=== PATIENT | female | born 1970 | race Caucasian/White ===

== ENCOUNTER → 2018-01-04 16:32 | Outpatient (CLI) | payer BC, SELFPAY ==
[2018-01-04 17:26] LABS: Absolute Lymphocyte Count 3.11 X10^3/ul (0.83-4.51); Absolute Neutrophil Count 6.1 X10^3/uL (2.0-7.7); Basophil# 0.03 X10^3/uL; Basophil% 0.3 % (0-1); Eosinophil# 0.43 X10^3/uL; Hematocrit 38.8 % (37-47); Hemoglobin 13.5 g/dl (12.0-15.0); Lymphocyte # 3.11 X10^3/ul (4.0); Lymphocyte % 29.3 % (19-41); Mean Corp Hgb Conc 34.8 g/gl (32-36); Mean Corpuscular Hgb 30.8 pg (27.0-32.0); Mean Corpuscular Volume 88.4 fL (81-99); Mean Platelet Vol. 10.4 fl (6.2-12.0); Monocyte# 0.93 X10^3/uL; Monocyte% 8.8 % (0-10); Neutrophil # 6.08 X10^3/uL (2.7-7.7); Neutrophil % 57.2 % (47-70); Platelet Count 290 K/mm3 (150-450); RBC Distribution Width SD 41.9 fl (35.1-43.9); Red Blood Count 4.39 M/mm3 (4.2-5.4); White Blood Count 10.6 K/mm3 (4.4-11.0)
[2018-01-04 17:44] LABS: POSITIVE COUNT NO; POSITIVE DIFFERENTIAL NO; POSITIVE MORPHOLOGY NO
[2018-01-04 18:02] LABS: Albumin, Serum 3.8 g/dL (3.2-5.0); BUN 11 mg/dL (7-18); BUN/Creat Ratio 13.2 RATIO (10-20); Creatinine, Serum 0.83 mg/dL (0.55-1.02); EST Glomerular Filtration Rate 79 mL/min (>60); Est Glom Filt Rate - Afr Amer 95 mL/min (>60); Glucose 127 mg/dL (74-106); Protein, Total 7.2 g/dL (6.4-8.2)
[2018-01-04 18:03] LABS: ALB/GLOB Ratio 1.1 RATIO (0.9-2.4); AST(SGOT) 18 U/L (15-37); Alanine Aminotransfer ALT/SGPT 26 U/L (13-56); Alkaline Phosphatase 64 U/L (45-117); Anion Gap 10 (5-15); Calcium,Total 8.3 mg/dL (8.5-10.1); Chloride 105 mmol/L (98-107); Globulin 3.4 g/dL (2.2-4.2); Potassium 3.5 mmol/L (3.5-5.1); Sodium Level 141 mmol/L (136-145); Thyroid Stim Hormone (TSH) 1.22 uIU/mL (0.358-3.74)
[2018-01-05 09:47] LABS: Vitamin D,25 Hydroxy 21.1 ng/mL (29.95-100.01)
== END ==
PROVIDERS: Family Provider Family Medicine Geriatric Medicine; PCP Family Medicine Geriatric Medicine; Visit Provider Family Medicine Geriatric Medicine
DX: E55.9 Vitamin D deficiency, unspecified (principal); I10 Essential (primary) hypertension
CPT/HCPCS: 36415; 80053; 82306; 84443; 85025

== ENCOUNTER → 2018-01-16 15:41 | Outpatient (CLI) | payer BC, SELFPAY ==
--- NOTE | 2018-01-16 15:45 | RAD_ITS ---
STUDY: X-RAY - LEFT HAND, ATTENTION SECOND FINGER REASON FOR EXAM: Female, 47 years old. Pain TECHNIQUE: 3 view(s) of the finger were obtained. COMPARISON: None. FINDINGS: There is marked osteoarthritis at the second and third DIP joints. Normal metacarpal head. Normal metacarpophalangeal joint. Normal proximal phalanx. Normal proximal interphalangeal joint. RAD/Finger(s) Min 2 Views IMPRESSION: Marked osteoarthritis, second, third DIP joints Electronically Signed: Art Palomares MD at 22:22 EDT Tel , Service support ,
== END ==
PROVIDERS: Family Provider Family Medicine Geriatric Medicine; PCP Family Medicine Geriatric Medicine; Visit Provider Orthopaedic Surgery
DX: M79.645 Pain in left finger(s) (principal)
CPT/HCPCS: 73140

== ENCOUNTER 2018-02-05 17:30 | Outpatient (RCR) | payer BC, SELFPAY ==
--- NOTE | 2018-01-24 15:30 | HP.OTEVAL ---
Patient's Visit Information ANEUDY CASTRO is a 47 year old F, referred to Occupational Therapy by Dana Vega DO,, with a diagnosis of OA L index finger/ CTS. Date of Evaluation: 01/23/18 Occupational Therapist: [place] - Subjective Subjective: Pt seen for initial occupational therapy evaluation for OA in L index finger DIP joint with increased pain with movement. Pt hurt hand in August and has had pain since with limiting functional use of L index finger. 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 She is independent with all basic ADL tasks and has limited independence opening containers secondary to pain and weakness of L hand. Pt is R hand dominent. - Pain Left Hand 3 Pain Intensity Range: 3, 4, 5 - Objective Objective/Observation: Pt demo decreased ROM L index finger extension DIP joint and increased stiffness and pain of L index finger indicating a need for occupational therapy services to increase ROM extension of L index finger DIP joint and decrease pain and stiffness of L index finger and increase strength of L hand to increase independence with functional tasks. - ROM DIP: R 0/104, L -40/115 ROM Comments: limited extension L index finger DIP. 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 Goal:: Pt will progress with L index finger extension DIP by 35' to increase functional use of L hand. Goal:: Pt will demo no more than 1/10 pain L index finger at time of d/c from OT. Goal:: Pt will be educated on joint protection/energy conservation tech of L hand and carpal tunnel syndrome with good understanding and demo 100%x. Goal:: Pt will be educated on CTS exercises and L hand HEP and manual therapy techniques to decrease scar tissue with good understanding and demo 100%x. - Rehabilitation General Assessment: decrease pain L index finger and increase ROM DIP joint to increase functional use of L hand as well as increase L hand pinch and medical center director strength for functional tasks such as opening containers independently and educate on HEP and ROM techniques to complete at home with good understanding and demo. Rehabilitation Potential: Excellent - Anticipated Interventions Anticipated Interventions: A/AAROM/PROM, Strengthening, Massage, Triggerpoint Release, Modalities, Joint Protection/Energy Conservation, Ergonomic Education, Fine Motor Coord/Merrill, ADL Training, Education re Self Massage Techniques, Home Program - Visit Plan Frequency: 1x/Week Duration: 6 Weeks General Plan: decrease L index finger pain and increase ROM L index finger DIP joint. Increase L hand medical center director strength and pinch strength. Educate on HEP for L hand and CTS. TEXT: Thank you for the opportunity to evaluate your patient. For Medicare and Medicare HMO plans, please review the plan of care and approve it. It will need to be FAXED BACK to us at [phone] for Medicare purposes. Please let me know if there are questions or concerns regarding this plan of care. Physician Signature: Date:
--- NOTE | 2018-07-17 09:43 | HP.OT.NRP ---
HP - Discharge Summary - Patient Information ANEUDY CASTRO was seen in my office for initial evaluation on 01/23/18. The following Plan of Care was established for this patient: Initial Frequency: 1x/Week Initial Duration: 6 Weeks Plan: pt doing better and states 100% better- pt to call and see if she will return for her next three apts - Anticipated Interventions Anticipated Interventions: A/AAROM/PROM, Strengthening, Massage, Triggerpoint Release, Modalities, Joint Protection/Energy Conservation, Ergonomic Education, Fine Motor Coord/Merrill, ADL Training, Education re Self Massage Techniques, Home Program This patient was last seen in our office 02/05/18. Pertinent comments regarding their Occupational therapy will appear below: Pt was seen for 3 visits- the last two visits were cancelled.- at 3rd. visit pt was demo full functional ROM and reported no pain. pt is now D/C due to timelapse in tx sessions and non attendance. At this point I will be discontinuing this patient from occupational therapy. I would be happy to see this patient again in the future if found appropriate by the physician. Thank you! Kelly Rivera, OTR/L, CHT
== END 2018-02-05 19:00 | disposition home or self-care (01) ==
LOC: OT 17:30
PROVIDERS: Family Provider Family Medicine Geriatric Medicine; PCP Family Medicine Geriatric Medicine; Visit Provider Orthopaedic Surgery
DX: M19.042 Primary osteoarthritis, left hand (principal); M25.642 Stiffness of left hand, not elsewhere classified; G56.02 Carpal tunnel syndrome, left upper limb
CPT/HCPCS: 97140; 97165

== ENCOUNTER → 2018-05-22 15:23 | Outpatient (CLI) | payer BC, SELFPAY ==
[2018-05-22 16:38] LABS: T4 Free Direct 0.92 ng/dL (0.76-1.46); Thyroid Stim Hormone (TSH) 0.69 uIU/mL (0.358-3.74)
[2018-05-26 10:28] LABS: HPV Reflexed? NOT INDICATED
== END ==
PROVIDERS: Visit Provider Obstetrics & Gynecology
DX: R53.83 Other fatigue (principal); Z12.4 Encounter for screening for malignant neoplasm of cervix
CPT/HCPCS: 36415; 84439; 84443; 88175; G0145

== ENCOUNTER → 2019-01-24 16:18 | Outpatient (CLI) | payer BC, SELFPAY ==
[2019-01-24 17:06] LABS: Absolute Lymphocyte Count 3.07 X10^3/ul (0.83-4.51); Absolute Neutrophil Count 5.9 X10^3/uL (2.0-7.7); Basophil# 0.03 X10^3/uL; Basophil% 0.3 % (0-1); Eosinophil# 0.45 X10^3/uL; Eosinophils% 4.3 % (0-5); Hematocrit 39.9 % (37-47); Hemoglobin 13.4 g/dl (12.0-15.0); Lymphocyte # 3.07 X10^3/ul (4.0); Lymphocyte % 29.2 % (19-41); Mean Corp Hgb Conc 33.6 g/gl (32-36); Mean Corpuscular Hgb 30.1 pg (27.0-32.0); Mean Corpuscular Volume 89.7 fL (81-99); Mean Platelet Vol. 9.8 fl (6.2-12.0); Monocyte# 0.95 X10^3/uL; Neutrophil # 5.94 X10^3/uL (2.7-7.7); Neutrophil % 56.5 % (47-70); Platelet Count 292 K/mm3 (150-450); RBC Distribution Width CV 13.1 % (11.6-14.6); RBC Distribution Width SD 42.3 fl (35.1-43.9); Red Blood Count 4.45 M/mm3 (4.2-5.4); White Blood Count 10.5 K/mm3 (4.4-11.0)
[2019-01-24 17:22] LABS: POSITIVE COUNT NO; POSITIVE DIFFERENTIAL NO; POSITIVE MORPHOLOGY NO
[2019-01-24 17:32] LABS: Albumin, Serum 3.5 g/dL (3.2-5.0); BUN 11 mg/dL (7-18); Creatinine, Serum 0.92 mg/dL (0.55-1.02); EST Glomerular Filtration Rate 70 mL/min (>60); Est Glom Filt Rate - Afr Amer 84 mL/min (>60); Glucose 110 mg/dL (74-106)
[2019-01-24 17:33] LABS: AST(SGOT) 25 U/L (15-37); Alanine Aminotransfer ALT/SGPT 30 U/L (13-56); Alkaline Phosphatase 61 U/L (45-117); Anion Gap 9 (5-15); Calcium,Total 8.6 mg/dL (8.5-10.1); Chloride 104 mmol/L (98-107); Globulin 3.5 g/dL (2.2-4.2); Potassium 3.5 mmol/L (3.5-5.1); Sodium Level 139 mmol/L (136-145); Thyroid Stim Hormone (TSH) 1.02 uIU/mL (0.358-3.74)
== END ==
PROVIDERS: Family Provider Family Medicine Geriatric Medicine; PCP Family Medicine Geriatric Medicine; Visit Provider Family Medicine Geriatric Medicine
DX: I10 Essential (primary) hypertension (principal); E55.9 Vitamin D deficiency, unspecified
CPT/HCPCS: 36415; 80053; 82306; 84443; 85025

== ENCOUNTER → 2019-04-23 | Outpatient (CLI) | payer BC, SELFPAY ==
[2019-04-23 17:23] LABS: Absolute Lymphocyte Count 3.61 X10^3/ul (0.83-4.51); Absolute Neutrophil Count 6.9 X10^3/uL (2.0-7.7); Basophil# 0.04 X10^3/uL; Basophil% 0.3 % (0-1); Eosinophil# 0.39 X10^3/uL; Eosinophils% 3.3 % (0-5); Hematocrit 40.3 % (37-47); Hemoglobin 13.9 g/dl (12.0-15.0); Lymphocyte # 3.61 X10^3/ul (4.0); Lymphocyte % 30.4 % (19-41); Mean Corp Hgb Conc 34.5 g/gl (32-36); Mean Corpuscular Hgb 29.9 pg (27.0-32.0); Mean Corpuscular Volume 86.7 fL (81-99); Mean Platelet Vol. 9.5 fl (6.2-12.0); Monocyte% 7.6 % (0-10); Neutrophil # 6.89 X10^3/uL (2.7-7.7); Neutrophil % 57.9 % (47-70); Platelet Count 288 K/mm3 (150-450); RBC Distribution Width CV 13.4 % (11.6-14.6); RBC Distribution Width SD 41.9 fl (35.1-43.9); Red Blood Count 4.65 M/mm3 (4.2-5.4); White Blood Count 11.9 K/mm3 (4.4-11.0)
[2019-04-23 17:30] LABS: POSITIVE COUNT NO; POSITIVE DIFFERENTIAL NO; POSITIVE MORPHOLOGY NO
[2019-04-23 17:54] LABS: AST(SGOT) 17 U/L (15-37); Alanine Aminotransfer ALT/SGPT 27 U/L (13-56); Albumin, Serum 3.7 g/dL (3.2-5.0); Alkaline Phosphatase 65 U/L (45-117); Anion Gap 8 (5-15); BUN 11 mg/dL (7-18); Calcium,Total 8.9 mg/dL (8.5-10.1); Chloride 103 mmol/L (98-107); Creatinine, Serum 0.79 mg/dL (0.55-1.02); EST Glomerular Filtration Rate 83 mL/min (>60); Est Glom Filt Rate - Afr Amer 100 mL/min (>60); Globulin 3.7 g/dL (2.2-4.2); Glucose 80 mg/dL (74-106); Potassium 3.5 mmol/L (3.5-5.1); Protein, Total 7.4 g/dL (6.4-8.2); Sodium Level 137 mmol/L (136-145); Thyroid Stim Hormone (TSH) 1.02 uIU/mL (0.358-3.74)
== END | disposition home or self-care (01) ==
LOC: POLAB3 16:52
PROVIDERS: Family Provider Family Medicine Geriatric Medicine; PCP Family Medicine Geriatric Medicine; Visit Provider Family Medicine Geriatric Medicine
DX: I10 Essential (primary) hypertension (principal)
CPT/HCPCS: 36415; 80053; 84443; 85025

== ENCOUNTER → 2019-09-09 16:26 | Outpatient (CLI) | payer BC, SELFPAY ==
[2019-09-13 09:08] LABS: Age Gdln ACOG Testing 30-65 (.)
[2019-09-13 09:49] LABS: HPV APTIMA, High Risk Negative (Negative); HPV Reflexed? NOT INDICATED
== END ==
PROVIDERS: Family Provider Family Medicine Geriatric Medicine; PCP Family Medicine Geriatric Medicine; Visit Provider Obstetrics & Gynecology
DX: Z12.4 Encounter for screening for malignant neoplasm of cervix (principal)
CPT/HCPCS: 88175; G0145

== ENCOUNTER → 2019-09-19 15:53 | Outpatient (CLI) | payer BC, SELFPAY ==
[2019-09-19 17:52] LABS: Follicle Stimulating Hormone 4.2 mIU/mL; Thyroid Stim Hormone (TSH) 0.81 uIU/mL (0.358-3.74)
== END ==
PROVIDERS: Family Provider Family Medicine Geriatric Medicine; PCP Family Medicine Geriatric Medicine; Visit Provider Obstetrics & Gynecology
DX: N91.2 Amenorrhea, unspecified (principal); R23.8 Other skin changes
CPT/HCPCS: 36415; 83001; 84443; 85027

== ENCOUNTER → 2020-01-27 16:02 | Outpatient (CLI) | payer BC, SELFPAY ==
[2020-01-27 17:07] LABS: Absolute Lymphocyte Count 2.85 X10^3/uL (0.83-4.51); Absolute Neutrophil Count 5.1 X10^3/uL (2.0-7.7); Basophil# 0.05 X10^3/uL; Basophil% 0.6 % (0-1); Eosinophil# 0.44 X10^3/uL; Eosinophils% 4.8 % (0-5); Hematocrit 39.7 % (37-47); Hemoglobin 13.9 g/dL (12.0-15.0); Lymphocyte # 2.85 X10^3/ul (4.0); Lymphocyte % 31.4 % (19-41); Mean Corpuscular Hgb 30.4 pg (27.0-32.0); Mean Corpuscular Volume 86.9 fL (81-99); Mean Platelet Vol. 9.9 fl (6.2-12.0); Monocyte# 0.62 X10^3/uL; Monocyte% 6.8 % (0-10); NRBC Flagged by Analyzer 0 % (0-5); Neutrophil # 5.08 X10^3/uL (2.7-7.7); Neutrophil % 55.8 % (47-70); Platelet Count 261 K/mm3 (150-450); RBC Distribution Width CV 13.2 % (11.6-14.6); RBC Distribution Width SD 40.6 fl (35.1-43.9); Red Blood Count 4.57 M/mm3 (4.2-5.4); White Blood Count 9.1 K/mm3 (4.4-11.0)
[2020-01-27 17:25] LABS: Vitamin D,25 Hydroxy 18.1 ng/mL
[2020-01-27 17:30] LABS: AST(SGOT) 44 U/L (15-37); Alanine Aminotransfer ALT/SGPT 57 U/L (13-56); Albumin, Serum 3.6 g/dL (3.2-5.0); Alkaline Phosphatase 66 U/L (45-117); Anion Gap 8 (5-15); BUN 11 mg/dL (7-18); BUN/Creat Ratio 11.9 RATIO (10-20); Chloride 106 mmol/L (98-107); Creatinine, Serum 0.92 mg/dL (0.55-1.02); EST Glomerular Filtration Rate 69 mL/min (>60); Est Glom Filt Rate - Afr Amer 84 mL/min (>60); Globulin 3.6 g/dL (2.2-4.2); Glucose 195 mg/dL (74-106); Potassium 3.2 mmol/L (3.5-5.1); Protein, Total 7.2 g/dL (6.4-8.2); Sodium Level 141 mmol/L (136-145)
== END ==
PROVIDERS: PCP Family Medicine Geriatric Medicine; Visit Provider Family Medicine Geriatric Medicine
DX: I10 Essential (primary) hypertension (principal); E55.9 Vitamin D deficiency, unspecified
CPT/HCPCS: 36415; 80053; 82306; 84443; 85025

== ENCOUNTER → 2020-02-04 08:27 | Outpatient (CLI) | payer BC, SELFPAY ==
--- NOTE | 2020-02-04 08:29 | US_ITS ---
STUDY: ABDOMINAL ULTRASOUND - RIGHT UPPER QUADRANT REASON FOR VISIT: Female, 49 years old abd pain TECHNIQUE: Ultrasound evaluation of the right upper quadrant was performed with real-time and static kern-scale imaging. TECHNICAL QUALITY: Adequate. COMPARISON: None. FINDINGS: Liver: The liver measures 17.3 cm. There is increased echogenicity consistent with fatty infiltration. The bile ducts are within normal limits. There is hepatic color flow. The direction of portal flow is hepatopetal. There is no demonstrated mass lesion. Gallbladder: The patient is status post cholecystectomy. Common Bile Duct (C.B.D.): The common bile duct measures 4.3 mm. Pancreas: Normal size of the head, body of the pancreas. The tail portion is obscured due to overlying bowel gas. There is normal echogenicity of the pancreas. There is no demonstrated pancreatic mass or cyst. Right Kidney: Normal size of the right kidney. The right kidney measures 10.7 cm x 5.4 cm x 4.7 cm. Normal renal cortex. The right cortex measures 1.5 cm. There is no demonstrated renal mass or cyst. There is no right hydronephrosis. US/Abdomen Limited IMPRESSION: Fatty infiltration of the liver. Electronically Signed: Chacho Last, at 9:28 EDT , Service support ,
[2020-02-04 09:57] LABS: Anion Gap 7 (5-15); BUN 10 mg/dL (7-18); BUN/Creat Ratio 11.4 RATIO (10-20); Calcium,Total 8.9 mg/dL (8.5-10.1); Chloride 104 mmol/L (98-107); Creatinine, Serum 0.88 mg/dL (0.55-1.02); EST Glomerular Filtration Rate 73 mL/min (>60); Est Glom Filt Rate - Afr Amer 88 mL/min (>60); Glucose 120 mg/dL (74-106); Potassium 3.3 mmol/L (3.5-5.1); Sodium Level 139 mmol/L (136-145)
== END ==
PROVIDERS: PCP Family Medicine Geriatric Medicine; Referring Provider Family Medicine Geriatric Medicine; Visit Provider Family Medicine Geriatric Medicine
DX: R74.8 Abnormal levels of other serum enzymes (principal); E87.6 Hypokalemia
CPT/HCPCS: 36415; 76705; 80048

== ENCOUNTER 2020-02-17 18:30 | Outpatient (RCR) | payer BC, SELFPAY | END 2020-02-17 23:59 | disposition home or self-care (01) | LOC: DC 18:30 | PROVIDERS: PCP Family Medicine Geriatric Medicine; Visit Provider Family Medicine Geriatric Medicine | DX: Z71.3 Dietary counseling and surveillance (principal); E11.9 Type 2 diabetes mellitus without complications | CPT/HCPCS: 97802; G0108; S9470; G0463 ==

== ENCOUNTER → 2020-05-27 18:04 | Outpatient (CLI) | payer BC, SELFPAY | PROVIDERS: PCP Family Medicine Geriatric Medicine; Referring Provider Family Medicine Geriatric Medicine; Visit Provider Family Medicine Geriatric Medicine | DX: R06.89 Other abnormalities of breathing (principal) | CPT/HCPCS: 87635; 94799; U0003 ==

== ENCOUNTER → 2020-09-11 | Outpatient (CLI) | payer BC, SELFPAY ==
[2020-09-15 03:07] LABS: Chlamydia By Nucleic Acid AMP Negative (Negative)
[2020-09-15 10:41] LABS: Gonococcus By Nucleic Acid AMP Negative (Negative)
[2020-09-16 15:15] LABS: HPV Reflexed? NOT INDICATED
== END | disposition home or self-care (01) ==
LOC: LABSPEC 15:18
PROVIDERS: PCP Family Medicine Geriatric Medicine; Visit Provider Student in an Organized Health Care Education/Training Program
DX: Z11.3 Encounter for screening for infections with a predominantly sexual mode of transmission (principal); Z12.4 Encounter for screening for malignant neoplasm of cervix
CPT/HCPCS: 87491; 87591; 88175; G0145

== ENCOUNTER → 2021-01-27 16:16 | Outpatient (CLI) | payer BC, SELFPAY ==
[2021-01-27 16:42] LABS: Absolute Lymphocyte Count 3.64 X10^3/uL (0.83-4.51); Absolute Neutrophil Count 6.2 X10^3/uL (2.0-7.7); Basophil# 0.07 X10^3/uL; Basophil% 0.6 % (0-1); Eosinophil# 0.41 X10^3/uL; Eosinophils% 3.6 % (0-5); Hematocrit 41.9 % (37-47); Hemoglobin 14.3 g/dL (12.0-15.0); Lymphocyte # 3.64 X10^3/ul (4.0); Lymphocyte % 31.6 % (19-41); Mean Corp Hgb Conc 34.1 g/dL (32-36); Mean Corpuscular Hgb 29.8 pg (27.0-32.0); Mean Corpuscular Volume 87.3 fL (81-99); Mean Platelet Vol. 9.6 fl (6.2-12.0); Monocyte# 1.11 X10^3/uL; Monocyte% 9.6 % (0-10); NRBC Flagged by Analyzer 0 % (0-5); Neutrophil % 53.8 % (47-70); Platelet Count 339 K/mm3 (150-450); RBC Distribution Width CV 12.8 % (11.6-14.6); RBC Distribution Width SD 40.4 fl (35.1-43.9); White Blood Count 11.5 K/mm3 (4.4-11.0)
[2021-01-27 17:12] LABS: Vitamin D,25 Hydroxy 15.9 ng/mL
[2021-01-27 17:27] LABS: AST(SGOT) 22 U/L (15-37); Alanine Aminotransfer ALT/SGPT 43 U/L (13-56); Albumin, Serum 3.8 g/dL (3.2-5.0); Alkaline Phosphatase 65 U/L (45-117); Anion Gap 5 (5-15); BUN 9 mg/dL (7-18); BUN/Creat Ratio 10.9 RATIO (10-20); Chloride 104 mmol/L (98-107); Creatinine, Serum 0.83 mg/dL (0.55-1.02); EST Glomerular Filtration Rate 78 mL/min (>60); Est Glom Filt Rate - Afr Amer 94 mL/min (>60); Globulin 3.8 g/dL (2.2-4.2); Glucose 108 mg/dL (74-106); Potassium 3.5 mmol/L (3.5-5.1); Protein, Total 7.6 g/dL (6.4-8.2); Sodium Level 138 mmol/L (136-145); Thyroid Stim Hormone (TSH) 0.82 uIU/mL (0.358-3.74)
== END ==
PROVIDERS: PCP Family Medicine Geriatric Medicine; Visit Provider Family Medicine Geriatric Medicine
DX: E55.9 Vitamin D deficiency, unspecified (principal); I10 Essential (primary) hypertension
CPT/HCPCS: 36415; 80053; 82306; 84443; 85025

== ENCOUNTER 2021-12-28 12:56 | Outpatient (CLI) | payer BC, SELFPAY | END 2021-12-28 23:59 | disposition home or self-care (01) | LOC: PSN 12:59 | PROVIDERS: PCP Family Medicine Geriatric Medicine; Referring Provider Family Medicine Geriatric Medicine; Visit Provider Family Medicine Geriatric Medicine | DX: R68.83 Chills (without fever) (principal) | CPT/HCPCS: 87635; 87804; 87807; C9803; U0003; U0005 ==

== ENCOUNTER 2022-01-31 16:29 | Outpatient (CLI) | payer BC, SELFPAY ==
[2022-01-31 17:49] LABS: Absolute Lymphocyte Count 3.57 X10^3/uL (0.83-4.51); Absolute Neutrophil Count 7.2 X10^3/uL (2.0-7.7); Basophil# 0.07 X10^3/uL; Basophil% 0.6 % (0-1); Eosinophil# 0.32 X10^3/uL; Eosinophils% 2.6 % (0-5); Hematocrit 43.3 % (37-47); Hemoglobin 14.9 g/dL (12.0-15.0); Lymphocyte # 3.57 X10^3/ul (0.83-4.51); Lymphocyte % 29.1 % (19-41); Mean Corp Hgb Conc 34.4 g/dL (32-36); Mean Corpuscular Hgb 30.3 pg (27.0-32.0); Mean Corpuscular Volume 88.2 fL (81-99); Mean Platelet Vol. 9.6 fl (6.2-12.0); Monocyte# 1.01 X10^3/uL; Monocyte% 8.2 % (0-10); NRBC Flagged by Analyzer 0 % (0-5); Neutrophil # 7.19 X10^3/uL (2.7-7.7); Neutrophil % 58.8 % (47-70); Platelet Count 365 K/mm3 (150-450); RBC Distribution Width CV 13.3 % (11.6-14.6); RBC Distribution Width SD 43.4 fl (35.1-43.9); Red Blood Count 4.91 M/mm3 (4.2-5.4); White Blood Count 12.3 K/mm3 (4.4-11.0)
[2022-01-31 18:12] LABS: AST(SGOT) 24 U/L (15-37); Alanine Aminotransfer ALT/SGPT 41 U/L (13-56); Albumin, Serum 3.8 g/dL (3.2-5.0); Alkaline Phosphatase 66 U/L (45-117); Anion Gap 6 (5-15); BUN 10 mg/dL (7-18); BUN/Creat Ratio 11.2 RATIO (10-20); Calcium,Total 8.8 mg/dL (8.5-10.1); Chloride 101 mmol/L (98-107); Creatinine, Serum 0.89 mg/dL (0.55-1.02); EST Glomerular Filtration Rate 71 mL/min (>60); Est Glom Filt Rate - Afr Amer 86 mL/min (>60); Globulin 3.7 g/dL (2.2-4.2); Glucose 106 mg/dL (74-106); Potassium 3.6 mmol/L (3.5-5.1); Protein, Total 7.5 g/dL (6.4-8.2); Sodium Level 136 mmol/L (136-145); Thyroid Stim Hormone (TSH) 0.86 uIU/mL (0.358-3.74)
== END 2022-01-31 23:59 | disposition home or self-care (01) ==
LOC: POLAB3 16:30
PROVIDERS: PCP Family Medicine Geriatric Medicine; Visit Provider Family Medicine Geriatric Medicine
DX: E11.65 Type 2 diabetes mellitus with hyperglycemia (principal); E55.9 Vitamin D deficiency, unspecified; I10 Essential (primary) hypertension
CPT/HCPCS: 36415; 80053; 82306; 84443; 85025

== ENCOUNTER → 2022-08-01 | Outpatient (CLI) | payer BC, SELFPAY | END | disposition home or self-care (01) | LOC: LAB.FUTURE 16:35 | PROVIDERS: PCP Family Medicine Geriatric Medicine; Visit Provider Family Medicine Geriatric Medicine | DX: I10 Essential (primary) hypertension (principal); E11.65 Type 2 diabetes mellitus with hyperglycemia; E55.9 Vitamin D deficiency, unspecified ==

== ENCOUNTER → 2023-01-18 | Outpatient (CLI) | payer BC, SELFPAY ==
[2023-01-25 16:08] LABS: HPV APTIMA, High Risk Negative (Negative)
== END | disposition home or self-care (01) ==
LOC: LABSPEC 16:58
PROVIDERS: PCP Family Medicine Geriatric Medicine; Referring Provider Obstetrics & Gynecology; Visit Provider Obstetrics & Gynecology
DX: Z12.4 Encounter for screening for malignant neoplasm of cervix (principal)
CPT/HCPCS: 87624; 88175; G0145

== ENCOUNTER → 2023-02-02 | Outpatient (CLI) | payer BC, SELFPAY ==
[2023-02-02 08:18] LABS: Cholesterol 182 mg/dL (200); Follicle Stimulating Hormone 15.5 mIU/mL; High Density Lipoprotein 31 mg/dL; Luteinizing Hormone 7.5 mIU/mL; T4 Free Direct 1.11 ng/dL (0.76-1.46); Thyroid Stim Hormone (TSH) 0.86 uIU/mL (0.358-3.74); Triglycerides 166 mg/dL; Very Low Density Lipoprotein 33 mg/dL (5-40)
[2023-02-02 08:54] LABS: Vitamin D,25 Hydroxy 34.8 ng/mL
== END | disposition home or self-care (01) ==
PROVIDERS: PCP Family Medicine Geriatric Medicine; Referring Provider Obstetrics & Gynecology; Visit Provider Obstetrics & Gynecology
DX: N95.1 Menopausal and female climacteric states (principal); Z13.220 Encounter for screening for lipoid disorders; Z13.29 Encounter for screening for other suspected endocrine disorder; Z13.21 Encounter for screening for nutritional disorder
CPT/HCPCS: 36415; 80061; 82306; 83001; 83002; 84439; 84443

== ENCOUNTER → 2023-02-15 | Outpatient (CLI) | payer BC, SELFPAY ==
[2023-02-15 17:38] LABS: Absolute Lymphocyte Count 3.57 X10^3/uL (0.83-4.51); Absolute Neutrophil Count 5.2 X10^3/uL (2.0-7.7); Basophil# 0.07 X10^3/uL; Basophil% 0.7 % (0-1); Hematocrit 43.6 % (37-47); Hemoglobin 14.7 g/dL (12.0-15.0); Lymphocyte # 3.57 X10^3/ul (0.83-4.51); Lymphocyte % 35.9 % (19-41); Mean Corp Hgb Conc 33.7 g/dL (32-36); Mean Corpuscular Hgb 29.5 pg (27.0-32.0); Mean Corpuscular Volume 87.4 fL (81-99); Mean Platelet Vol. 10.1 fl (6.2-12.0); Monocyte# 0.69 X10^3/uL; Monocyte% 6.9 % (0-10); NRBC Flagged by Analyzer 0 % (0-5); Neutrophil # 5.16 X10^3/uL (2.7-7.7); Platelet Count 329 K/mm3 (150-450); RBC Distribution Width SD 41.1 fl (35.1-43.9); Red Blood Count 4.99 M/mm3 (4.2-5.4); White Blood Count 9.9 K/mm3 (4.4-11.0)
[2023-02-15 17:57] LABS: Hemoglobin A1c 7.5 % (3.8-5.6)
[2023-02-15 18:09] LABS: ALB/GLOB Ratio 1.1 RATIO (0.9-2.4); AST(SGOT) 24 U/L (15-37); Alanine Aminotransfer ALT/SGPT 31 U/L (13-56); Albumin, Serum 3.8 g/dL (3.2-5.0); Alkaline Phosphatase 70 U/L (45-117); Anion Gap 6 (5-15); BUN 11 mg/dL (7-18); BUN/Creat Ratio 12.3 RATIO (10-20); Calcium,Total 9.3 mg/dL (8.5-10.1); Chloride 104 mmol/L (98-107); EST Glomerular Filtration Rate 71 mL/min (>60); Est Glom Filt Rate - Afr Amer 85 mL/min (>60); Globulin 3.5 g/dL (2.2-4.2); Glucose 135 mg/dL (74-106); Potassium 3.3 mmol/L (3.5-5.1); Protein, Total 7.3 g/dL (6.4-8.2); Sodium Level 136 mmol/L (136-145); Thyroid Stim Hormone (TSH) 0.91 uIU/mL (0.358-3.74)
[2023-02-15 18:33] LABS: Microalbumin,Random Urine 6.8 mg/L (NO RANGE EST.)
== END | disposition home or self-care (01) ==
PROVIDERS: PCP Family Medicine Geriatric Medicine; Referring Provider Family Medicine; Visit Provider Family Medicine
DX: I10 Essential (primary) hypertension (principal)
CPT/HCPCS: 36415; 80053; 82043; 83036; 84443; 85025

== ENCOUNTER → 2023-03-02 | Outpatient (CLI) | payer BC, SELFPAY ==
[2023-03-02 18:14] LABS: Potassium 3.7 mmol/L (3.5-5.1)
== END | disposition home or self-care (01) ==
LOC: MFPLAB 14:01
PROVIDERS: PCP Family Medicine; Visit Provider Family Medicine
DX: E87.6 Hypokalemia (principal)
CPT/HCPCS: 36415; 84132

== ENCOUNTER → 2023-04-04 | Outpatient (CLI) | payer BC, SELFPAY ==
[2023-04-04 13:04] LABS: Potassium 3.6 mmol/L (3.5-5.1)
== END | disposition home or self-care (01) ==
LOC: MFPLAB 11:24
PROVIDERS: PCP Family Medicine; Visit Provider Family Medicine
DX: E87.6 Hypokalemia (principal)
CPT/HCPCS: 36415; 84132

== ENCOUNTER → 2024-08-07 | Outpatient (CLI) | payer BC, SELFPAY ==
[2024-08-07 12:57] LABS: Absolute Lymphocyte Count 2.54 X10^3/uL (0.83-4.51); Absolute Neutrophil Count 4.6 X10^3/uL (2.0-7.7); Basophil# 0.04 X10^3/uL; Basophil% 0.5 % (0-1); Eosinophil# 0.51 X10^3/uL; Hematocrit 42.2 % (37-47); Hemoglobin 14.2 g/dL (12.0-15.0); Lymphocyte # 2.54 X10^3/ul (0.83-4.51); Lymphocyte % 29.9 % (19-41); Mean Corp Hgb Conc 33.6 g/dL (32-36); Mean Corpuscular Hgb 29.5 pg (27.0-32.0); Mean Corpuscular Volume 87.7 fL (81-99); Mean Platelet Vol. 9.7 fl (6.2-12.0); Monocyte# 0.74 X10^3/uL; Monocyte% 8.7 % (0-10); NRBC Flagged by Analyzer 0 % (0-5); Neutrophil # 4.62 X10^3/uL (2.7-7.7); Neutrophil % 54.4 % (47-70); Platelet Count 286 K/mm3 (150-450); RBC Distribution Width CV 12.7 % (11.6-14.6); RBC Distribution Width SD 40.9 fl (35.1-43.9); Red Blood Count 4.81 M/mm3 (4.2-5.4); White Blood Count 8.5 K/mm3 (4.4-11.0)
[2024-08-07 13:14] LABS: Microalbumin,Random Urine 6.7 mg/L (NO RANGE EST.)
[2024-08-07 13:36] LABS: ALB/GLOB Ratio 1.1 RATIO (0.9-2.4); AST(SGOT) 21 U/L (15-37); Alanine Aminotransfer ALT/SGPT 26 U/L (13-56); Albumin, Serum 3.9 g/dL (3.2-5.0); Alkaline Phosphatase 62 U/L (45-117); Anion Gap 8 (5-15); BUN 14 mg/dL (7-18); BUN/Creat Ratio 15.3 RATIO (10-20); Calcium,Total 9.4 mg/dL (8.5-10.1); Chloride 105 mmol/L (98-107); Cholesterol 191 mg/dL (200); Creatinine, Serum 0.91 mg/dL (0.55-1.02); EST Glomerular Filtration Rate 69 mL/min (>60); Est Glom Filt Rate - Afr Amer 83 mL/min (>60); Globulin 3.5 g/dL (2.2-4.2); Glucose 97 mg/dL (74-106); High Density Lipoprotein 49 mg/dL; Potassium 3.9 mmol/L (3.5-5.1); Protein, Total 7.4 g/dL (6.4-8.2); Sodium Level 140 mmol/L (136-145); Thyroid Stim Hormone (TSH) 0.751 uIU/mL (0.358-3.740); Triglycerides 213 mg/dL; Very Low Density Lipoprotein 43 mg/dL (5-40)
== END | disposition home or self-care (01) ==
LOC: VSLAB 11:02
PROVIDERS: PCP Family Medicine; Visit Provider Family Medicine
DX: E11.69 Type 2 diabetes mellitus with other specified complication (principal); I10 Essential (primary) hypertension
CPT/HCPCS: 36415; 80053; 80061; 82043; 84443; 85025

== ENCOUNTER → 2025-01-13 | Outpatient (CLI) | payer BC, SELFPAY ==
--- NOTE | 2025-01-13 15:45 | BI_ITS ---
EXAM: SCRN MAMM (CAD)W/ZOLTAN BILAT DATE: 01/13/2025 CLINICAL HISTORY: F, Age 54 y/o , SCREENING MAMMOGRAM. History of prior left excisional breast biopsy. TECHNIQUE: Bilateral screening digital breast tomosynthesis with 2D and 3D images. Computer aided detection. COMPARISON: Prior exam(s) dating back to April 17, 2017.. FINDINGS: Bilateral Breast Mammographic Findings: No significant masses, calcifications or other abnormalities are identified. TISSUE DENSITY: The breast tissue is almost entirely fatty. BI/SCRN MAMM (CAD)W/ZOLTAN BILAT IMPRESSION: Right Breast: BI-RADS category 1, negative findings. Left Breast: BI-RADS category 1, negative findings. Normal interval followup mammograms are recommended in 12 months. A letter with findings and recommendations will be mailed to the patient. ASSESSMENT: BIRADS 1 NEGATIVE RECOMMENDATION: 1: ROUTINE ANNUAL FOLLOW-UP Bilateral in 1 Year Reading Location: [place] [id number]
== END | disposition home or self-care (01) ==
PROVIDERS: PCP Family Medicine; Referring Provider Nurse Practitioner Family; Visit Provider Nurse Practitioner Family
DX: Z12.31 Encounter for screening mammogram for malignant neoplasm of breast (principal)
CPT/HCPCS: 77063; 77067

== ENCOUNTER 2025-05-07 07:14 | Observation (INO) | payer BC, SELFPAY ==
--- NOTE | 2025-04-01 13:06 | EKG12_ITS ---
Test Reason : PRE OP Blood Pressure : */* mmHG Vent. Rate : 90 BPM Atrial Rate : 90 BPM P-R Int : 152 ms QRS Dur : 84 ms QT Int : 360 ms P-R-T Axes : 51 44 47 degrees QTcB Int : 440 ms Normal sinus rhythm Normal ECG Confirmed by Florentin Rayo ([id number]), editor index UVALDO LUGO ([id number]) on 04/02/2025 5:49:56 AM Referred By: Yannick Bourne Confirmed By: Florentin Rayo
[2025-04-01 13:56] LABS: Hematocrit 40.0 % (37-47); Hemoglobin 14.1 g/dL (12.0-15.0); Mean Corp Hgb Conc 35.3 g/dL (32-36); Mean Corpuscular Volume 85.1 fL (81-99); Mean Platelet Vol. 9.7 fl (6.2-12.0); Platelet Count 301 K/mm3 (150-450); RBC Distribution Width CV 13.0 % (11.6-14.6); RBC Distribution Width SD 40.0 fl (35.1-43.9); Red Blood Count 4.70 M/mm3 (4.2-5.4); White Blood Count 8.3 K/mm3 (4.4-11.0)
[2025-04-01 14:05] LABS: Prothrombin Time (Protime)PT. 13.3 SECONDS (11.7-14.9)
[2025-04-01 14:06] LABS: Partial Thromboplast Time 25.2 Seconds (24.1-36.2)
[2025-04-01 15:04] LABS: AST(SGOT) 20 U/L (<=31); Alanine Aminotransfer ALT/SGPT 19 U/L (<=34); Albumin, Serum 4.4 g/dL (3.5-5.0); Alkaline Phosphatase 70 U/L (35-104); Anion Gap 12 (5-15); BUN 14 mg/dL (4-19); BUN/Creat Ratio 14.7 RATIO (10-20); Bilirubin, Direct 0.26 mg/dL (0.00-0.30); Calcium,Total 9.4 mg/dL (7.6-11.0); Carbon Dioxide 23.6 mmol/L (21.0-32.0); Chloride 104 mmol/L (98-108); Globulin 2.5 g/dL (2.2-4.2); Glucose 103 mg/dL (70-99); Potassium 3.7 mmol/L (3.3-5.1)
[2025-05-07] VITALS (17 sets, daily range): BP systolic 118–138; BP diastolic 79–90; PULSE 83–109; RESP 14–18; TEMP 36.2–37.6; O2SAT 92–99; BMI 40.8
[2025-05-07 06:50] LABS: Internal QC Validated? YES +Cl - CLEAR BKGD; Pregnancy, Urine Negative Negative; Record Kit Lot#,Urine Preg 0000947241
[2025-05-07] MEDS: Lactated Ringers 1,000 ML 15 ML IV (06:55)
--- NOTE | 2025-05-07 07:02 | PCM.HP.STD ---
HPI - General HPI Narrative Breast Reduction Ehsan Johnson is a delightful 54-year-old female with past medical history of macromastia and subsequent back pain presenting today for breast reduction consultation. She reports difficulty exercising because of the pain from her large breasts. She has shoulder grooving from the bra strap. She never breast-fed (was unable to) and is not having children (had 1 child through section). She is not a smoker. No personal or family history of blood clots or bleeding diatheses. Patient has the following symptoms of macromastia: Shoulder Pain Shoulder Grooves? Upper back pain Poor Posture Headaches ? ? Physical therapy for back pain: No ? Chiropractic treatment: No ? Home exercise: Yes ? NSAID use: From time to time ? Skin ulceration: No ? Topical or oral antifungal agents: No ? Participation in medically supervised weight loss program: Takes Mounjaro for her diabetes. She has been stable weight for over 6 months. She previously was on Ozempic where she lost 30 lbs but it caused her to start to have some memory issues so she was switched to Mounjaro. She regained her weight on the Monujaro but her blood sugars have improved. HgA1C is 6.0. ? More info: HTN controlled with BP meds. No clotting issues. No family clotting issues. She is diabetic. A1C 6.0. She neck and back pain and headaches from her breasts. She has hyperhidrosis and sweats a lot. ? Prior breast surgeries: No PAIN: out of aching pain of upper back ? BRA SIZE: 42 DDD ? DESIRED? SIZE: B ? OB HISTORY: PARA: 1 :? No PLAN FOR FUTURE PREGNANCIES: None ? HISTORY OF BREAST DISEASE: No PRIOR MAMMOGRAM: Yes but it has been 2 years. FAMILY HISTORY OF BREAST CANCER: No CURRENT ENCOUNTER, 27 Feb 2025: Doing well overall. Breast reduction was approved by insurance. She has a negative mammogram (December 2024). She would like to proceed with surgery. We are here to discuss postoperative plans/protocol as well as the surgery, including the risks, benefits, and alternatives for informed consent. She was given an extensive hand out with information about the surgery. We also discussed the results of the mammography (BI-RADS 1) with plan for yearly screening at 12-month intervals. Current Encounter (DATE OF SURGERY H&P UPDATE): I saw and examined the patient this morning in pre-operative holding. We discussed risks and benefits of today's surgery and they would like to proceed. NO CHANGE in health history since last seen and evaluated except had a viral URI a couple of weeks ago that has resolved. Ready to proceed with surgery. [facility] Medical History Depression Anxiety Diabetes Arthritis Anemia Easy bruising History of diverticulitis History of IBS Non-smoker Shortness of breath on exertion Contraceptive management GERD (gastroesophageal reflux disease) Vitamin D deficiency Hyperhidrosis Hypertension Home Medications ?Medication ?Instructions ?Recorded ?Last Taken ?Type lisinopril 5 mg tablet 5 mg PO QDAY 01/16/18 05/06/25 18:00 History potassium chloride 10 mEq 10 meq PO QDAY 01/16/18 05/06/25 18:00 History tablet,extended release (Klor-Con) fluoxetine 40 mg capsule (Prozac) 40 mg PO DAILY 01/06/22 05/06/25 16:00 History levonorgestrel 20.4 mcg/24 hr (up 1 device intrauterine ONCE 01/06/22 Unknown History to 8 yrs) 52 mg intrauterine device (Liletta) bupropion HCl 150 mg 24 hr tablet, 150 mg PO QDAY 12/26/24 05/06/25 06:00 History extended release tirzepatide 2.5 mg/0.5 mL 2.5 mg subcut FR 12/26/24 04/18/25 History subcutaneous pen injector (Mounjaro) lansoprazole 15 mg capsule,delayed 15 mg PO DAILY 03/31/25 05/06/25 18:00 History release (Prevacid 24Hr) valacyclovir 500 mg tablet 500 mg PO BID PRN cold sores 03/31/25 Unknown History (Valtrex) hyoscyamine sulfate 0.125 mg tablet 0.125 mg PO Q12H PRN PRN dyspepsia 05/05/25 05/06/25 18:00 History clindamycin HCl 150 mg capsule 150 mg PO TID 5 days #15 caps 05/07/25 Unknown Rx (Cleocin HCl) ondansetron 4 mg disintegrating 4 mg PO Q8H PRN nausea and 05/07/25 Unknown Rx tablet vomiting #10 tabs oxycodone 5 mg tablet 5 mg PO Q4H PRN pain 5 days #20 05/07/25 Unknown Rx tabs Allergy/AdvReac Type Severity Reaction Status Date / Time erythromycin base Allergy Anaphylaxis Verified 05/07/25 06:56 penicillin V Allergy unknown Verified 05/07/25 06:56 Sulfa (Sulfonamide Allergy Anaphylaxis Verified 05/07/25 06:56 Antibiotics) Family History Mother Hypertension CVA (cerebral vascular accident) Father Hypertension Surgical History Hx of LASIK S/P cholecystectomy H/O: Social History Smoking Status: Never smoker alcohol intake: never substance use type: does not use caffeine: Yes what type of physical activity do you participate in: none seatbelt use: always do you feel safe at home: Yes 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, DENIES EDIBLES, DENIES MARIJUANA USE, NO FAMILY HISTORY OF BLOOD CLOTS Physical Exam Narrative 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 No palpable hernias Breast Exam: Asymmetry: Yes Masses: none Axillary Lymphadenopathy: None on either side Note: measurements are in centimeters SN to NIPPLE:? R: 35 ? ? L: 36 WIDTH: ? R: 21 ? ? L: 20 MIDLINE to NIPPLE: R: 15? ? L: 15 IMF to NIPPLE: ? R: 10? ? L: 10 PTOSIS: ? R: Grade 3 ? ? L: Grade 3 Const General: cooperative and well developed [facility] Head: normocephalic Eyes General: appearance normal, both eyes and all related structures Results Lab / Micro Data 04/01/25 13:20 04/01/25 13:20 Labs: Laboratory Results - last 24 hr 05/07/25 06:30: Urine Test Negative Assessment & Plan Assessment/Plan (1) Macromastia: PLAN: Photos obtained We have ordered a screening mammogram and patient in agreement I talked the patient extensively about the risks of surgery, including bleeding, asymmetry (we discussed existing asymmetries), nipple loss, need for free nipple grafts, infection, damage to surrounding structures, surgical site dehiscence and wound formation, need for wound care, need for repeat operations, failure to obtain the desired result, DVT/PE, and the risks of anesthesia including , including stroke (from low blood pressure/ischemia or clot). The benefits and alternatives of this surgery were also discussed. All of their questions were answered, and they agreed to proceed with surgery. Plan According to Schnur scale I could remove 750 gm per side. I would plan superior medial pedicle v Inferior pedicle with Boland pattern skin reduction Caprini score is 4 (As long as she would stop taking contraceptive 4 weeks before surgery, otherwise it is 5) Plan to submit to insurance for surgery as she meets the criteria for macromastia Plan from 27 Feb 2025: Mammogram up-to-date, BI-RADS 1. Patient would like to go forward with breast reduction. I talked to the patient extensively about the risks of surgery, including bleeding, infection, damage to surrounding structures, poor scaring, nipple necrosis, possible need for free nipple grafts, alterations in nipple sensation (possibly permanent), nipple inversion, surgical site dehiscence and wound formation, fat necrosis, fluid collections, need for wound care, need for repeat operations, failure to obtain the desired result, DVT/PE, and the risks of anesthesia including , including stroke (from low blood pressure/ischemia or clot). The benefits and alternatives of this surgery were also discussed. All of their questions were answered, and they agreed to proceed with surgery. INTERVAL H&P PLAN, DATE OF SURGERY: We will proceed with surgery today. We further discussed again the above-noted risks, benefits and alteratives. She would like to proceed. Plan superior medial pedicle v Inferior Pedicle with boland pattern skin reduction, possible free nipple grafts
--- NOTE | 2025-05-07 07:41 | PCM.PRE.AN2 ---
ASA Classification* ASA Classification ASA Classification: 3 Assessment & Plan Anesthesia* Anesthesia Assessment Anesthesia Assessment: Discussed sedation and/or anesthesia options, risks, benefits, and alternatives with patient/parents/legal guardian/POA. Questions invited. The patient/parents/legal guardian/POA seems to understand and agrees to proceed with anesthesia plan. Reviewed the physical assessment, medical history, allergy history and patient home medications list prior to surgery/procedure/anesthetic and documented any changes. Performed airway and anesthesia risk assessments. Anesthesia Type Anesthesia Type: General History Source History Obtained from:: Patient and Chart Anesthesia Focused Assessment* Temperature: 98.1 F Pulse Rate: 88 Blood Pressure: 129/85 Respiratory Rate: 18 Pulse Ox: 95 Oxygen Delivery Method: Room Air Airway Assessment Mouth opens: >3 cm Mallampati Score: II Teeth Condition: Intact Neck Range of motion (ROM): Full ROM Labs Anesthesia Preop lab: CBC WBC 8.3 K/mm3 (4.4-11.0) 04/01/25 13:20 04/01/25 RBC 4.70 M/mm3 (4.2-5.4) 04/01/25 13:20 04/01/25 Hgb 14.1 g/dL (12.0-15.0) 04/01/25 13:20 04/01/25 Hct 40.0 % (37-47) 04/01/25 13:20 04/01/25 Plt Count 301 K/mm3 (150-450) 04/01/25 13:20 04/01/25 CHEMISTRY Potassium 3.7 mmol/L (3.3-5.1) 04/01/25 13:20 04/01/25 Sodium 139 mmol/L (133-145) 04/01/25 13:20 04/01/25 BUN 14 mg/dL (4-19) 04/01/25 13:20 04/01/25 Creatinine 0.92 mg/dL (0.70-1.20) 04/01/25 13:20 04/01/25 Glucose 103 mg/dL (70-99) H 04/01/25 13:20 04/01/25 TSH 0.751 uIU/mL (0.358-3.740) 08/07/24 11:02 08/07/24 COAG PT 13.3 SECONDS (11.7-14.9) 04/01/25 13:20 04/01/25 Urine Test Negative Negative 05/07/25 06:30 05/07/25 Pre-Assessment Diagnosis/Proposed Procedure Planned Operative Procedure(s): (B) Breast reduction with possible free nipple grafting Anesthesia History 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 When Was Last Pacemaker Check QUESTION #4 FULL TEXT: You/Your Family Experience fever (hyperthermia) with Anesthesia Last Oral Intake Last Oral intake: Last Oral Intake NPO since 20:00 05/07/25 06:50 Meds taken in AM with sips of No 05/07/25 06:50 water? Meds patient instructed to take am of surgery PONV PONV - satellite tv technician: PONV - satellite tv technician Female Yes 05/05/25 09:35 HX of Motion Sickness Yes 05/05/25 09:35 HX of N/V After Surgery No 05/05/25 09:35 Non-Smoker Yes 05/05/25 09:35 Duration of Surgery greater Yes 05/05/25 09:35 than 60 minutes Number of Risk Factors 4 05/05/25 09:35 PONV Score Severe Risk 05/05/25 09:35 Height & Weight Height & Weight: Anesthesia: Height & Weight Height 5 ft 4 in 05/07/25 06:50 Weight: 108 kg 05/07/25 06:50 Body Mass Index (BMI) 40.8 05/07/25 06:50 Respiratory Assessment Respiratory Assessment - satellite tv technician: Respiratory Tract Infection Hx - satellite tv technician Hx Respiratory Tract Infection No 05/05/25 09:35 STOP Sleep Apnea STOP Sleep Apnea - satellite tv technician: STOP Sleep Apnea - satellite tv technician Hx Hypertension Yes: on meds 05/05/25 09:35 Hx Sleep Apnea No 05/05/25 09:35 CPAP BIPAP Do you snore loudly (louder No 05/05/25 09:35 than talking or can be heard Do you often feel tired/ No 05/05/25 09:35 fatigued/ sleepy during daytime? Has anyone observed you stop No 05/05/25 09:35 breathing during sleep? STOP Results Negative 05/05/25 09:35 QUESTION #5 FULL TEXT : Do you snore loudly (louder than talking or can be heard through closed doors)? Tobacco Use History Tobacco Use History - satellite tv technician: Tobacco Use History - satellite tv technician Tobacco Use Smoking Status Never smoker 05/05/25 09:35 Hx Tobacco Use No 05/05/25 09:35 Years Smoking Packs Smoked per Day Smoking Cessation Date was within the last 15 years Hx Smoking Cessation Date Hx Smoking Cessation Counseling Hematologic Medial History Hematologic Hx - satellite tv technician: Hematologic Medical Hx - commercial loan assistant Hx of Blood Transfusion No 05/05/25 09:35 Hx of Transfusion in last 3 No 05/05/25 09:35 Months Date of Last Transfusion (if within last 3 months) Ever experience any problems No 05/05/25 09:35 with transfusion(s)? Specify any problems Hx of Preganancy in last 3 No 05/05/25 09:35 Months Nurse Filling Out Transfusion KIMBERLY 05/05/25 09:35 & Questions: Date: 05/05/25 05/05/25 09:35 Time: 09:35 05/05/25 09:35 Patient unable to answer at this time (ie. confused, unrespo /Reproduction History /Reproductive History - satellite tv technician: /Reproductive Hx- satellite tv technician Hx Now No 05/05/25 09:35 Gestational Age (in weeks): EDC: Hx Hx Para Hx Section SAB No 05/05/25 09:35 Active Medications Active Medications: Current Medications Generic Name Dose Route Start Last Admin Trade Name Freq PRN Reason Stop Dose Admin Acetaminophen 650 mg 05/07/25 07:09 Acetaminophen 325 Mg Tablet PO Q6H PRN PRN Pain Score 1-10 Bupropion HCl 150 mg 05/07/25 07:15 Bupropion (Xl) 150 Mg Tablet.Xl PO QDAY LANA Lidocaine HCl 50 ml/ 0 ml 05/07/25 08:00 Epinephrine HCl 1 mg/ Lactated OPERA.SITE 05/07/25 08:01 Ringer's 949 ml X1 ONE Enoxaparin Sodium 40 mg 05/08/25 10:00 Enoxaparin 40 Mg/0.4 Ml Syringe SC DAILY LANA Fluoxetine HCl 40 mg 05/07/25 10:00 Fluoxetine Hcl 40 Mg Capsule PO DAILY LANA Clindamycin Phosphate 900 mg in 50 mls @ 75 mls/hr 05/07/25 08:00 Cleocin IV 05/07/25 08:39 INTRAOP ONE Lactated Ringer's 1,000 mls @ 15 mls/hr 05/07/25 06:45 05/07/25 06:55 IV 15 mls/hr .Q48H LANA Administration Lansoprazole 15 mg 05/07/25 10:00 Lansoprazole 15 Mg Capsule. PO DAILY LANA Ondansetron HCl 4 mg 05/07/25 07:09 Ondansetron 4 Mg/2 Ml Vial IV Q8H PRN PRN NAUSEA/VOMITING Oxycodone HCl 5 - 10 mg 05/07/25 07:09 Oxycodone 5 Mg Tablet PO Q4H PRN PRN Pain Score 4-10 PFSH Medical History Depression Anxiety Diabetes Arthritis Anemia Easy bruising History of diverticulitis History of IBS Non-smoker Shortness of breath on exertion Contraceptive management GERD (gastroesophageal reflux disease) Vitamin D deficiency Hyperhidrosis Hypertension Home Medications ?Medication ?Instructions ?Recorded ?Last Taken ?Type lisinopril 5 mg tablet 5 mg PO QDAY 01/16/18 05/06/25 18:00 History potassium chloride 10 mEq 10 meq PO QDAY 01/16/18 05/06/25 18:00 History tablet,extended release (Klor-Con) fluoxetine 40 mg capsule (Prozac) 40 mg PO DAILY 01/06/22 05/06/25 16:00 History levonorgestrel 20.4 mcg/24 hr (up 1 device intrauterine ONCE 01/06/22 Unknown History to 8 yrs) 52 mg intrauterine device (Liletta) bupropion HCl 150 mg 24 hr tablet, 150 mg PO QDAY 12/26/24 05/06/25 06:00 History extended release tirzepatide 2.5 mg/0.5 mL 2.5 mg subcut FR 12/26/24 04/18/25 History subcutaneous pen injector (Mounjaro) lansoprazole 15 mg capsule,delayed 15 mg PO DAILY 03/31/25 05/06/25 18:00 History release (Prevacid 24Hr) valacyclovir 500 mg tablet 500 mg PO BID PRN cold sores 03/31/25 Unknown History (Valtrex) hyoscyamine sulfate 0.125 mg tablet 0.125 mg PO Q12H PRN PRN dyspepsia 05/05/25 05/06/25 18:00 History clindamycin HCl 150 mg capsule 150 mg PO TID 5 days #15 caps 05/07/25 Unknown Rx (Cleocin HCl) ondansetron 4 mg disintegrating 4 mg PO Q8H PRN nausea and 05/07/25 Unknown Rx tablet vomiting #10 tabs oxycodone 5 mg tablet 5 mg PO Q4H PRN pain 5 days #20 05/07/25 Unknown Rx tabs Allergy/AdvReac Type Severity Reaction Status Date / Time erythromycin base Allergy Anaphylaxis Verified 05/07/25 06:56 penicillin V Allergy unknown Verified 05/07/25 06:56 Sulfa (Sulfonamide Allergy Anaphylaxis Verified 05/07/25 06:56 Antibiotics) Family History Mother Hypertension CVA (cerebral vascular accident) Father Hypertension Surgical History Hx of LASIK S/P cholecystectomy H/O: Social History Smoking Status: Never smoker alcohol intake: never substance use type: does not use caffeine: Yes what type of physical activity do you participate in: none seatbelt use: always do you feel safe at home: Yes 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
--- NOTE | 2025-05-07 08:00 | BR_PTH ---
PATIENT: ANEUDY CASTRO LOC: MS3 U#:[id number] AGE/SX: 54/F [place] [facility] [place]: Dr. Yannick Bourne MD : 1970 BED: 1 DIS: 05/08/2025 SPEC #: [id number] RECD: 05/07/25 12:05 STATUS: LIV REBhavesh #: [id number] TERRY: 05/07/25 08:[address]: Yannick Bourne DEPT: SURGICAL PATHOLOGY RECD BY: Gelacio Rodriguez ENTERED: 05/07/25 13:48 SP TYPE: MAMOPLASTY OTHR DR: Clemencia Guadalupe, [facility] [place], DO Tissues: B - Right breast, NOS A - Left breast, NOS Procedures: Surgery Specimen Level IV HEADER OPERATION: Breast reduction with free nipple grafting PRE-OP DIAGNOSIS: Macromastia TISSUE SUBMITTED: A- Left breast tissue, B- Right breast tissue MICROSCOPIC DIAGNOSIS A. Breast, left, macromastia, reduction: - Benign breast parenchyma and unremarkable skin (523 grams). B. Breast, right, macromastia, reduction: - Benign breast parenchyma and unremarkable skin (551 grams). MICROSCOPIC DESCRIPTION Slides are reviewed. GROSS DESCRIPTION Received fresh in 2 containers, and subsequently placed in formalin, labeled with the patient's name and date of . Designated as: A. Left breast tissue is a 523 g, 24.0 x 17.2 x 4.4 cm aggregate of hernandez-yellow fibrofatty tissue and hernandez portions of skin. Sectioning reveals fibrofatty cut surfaces (85% fatty, 15% fibrotic). Replanting Machine Crewman sections are submitted in 2 cassettes. B. Right breast tissue is a 551 g, 26.0 x 13.9 x 2.9 cm aggregate of hernandez-yellow fibrofatty tissue and hernandez portions of skin. Sectioning reveals fibrofatty cut surfaces (95% fatty, 5% fibrotic). Replanting Machine Crewman sections are submitted in 2 cassettes AK [id number]
[2025-05-07] MEDS: dexMEDEtomidine 200 MCG/2 ML ML IV (08:45)
[2025-05-07] MEDS: DiphenhydrAMINE 50 MG/ML Syringe 25 MG IV (08:50)
[2025-05-07] MEDS: fentaNYL 250mcg vial 100 ML 100 MCG IV (09:16)
[2025-05-07] MEDS: TAS 0.05% 1000 mls w/ LR OPERA.SITE (10:37)
[2025-05-07] MEDS: Lidocaine 1% /Epi 1:100 (20ml) 20 ML Vial (12:16)
[2025-05-07] MEDS: Bupiv/Epi 0.25% 30 ML Vial (12:16)
[2025-05-07] MEDS: Glycopyrrolate (Cantrell) 0.2 MG/ML SYRINGE 0.6 MG IV (12:21)
--- NOTE | 2025-05-07 12:57 | PCM.POST.ANE ---
Anesthesia: Postop Eval I Current Vital Signs Temperature: 97.6 F Pulse Rate: 89 Blood Pressure: 131/81 Respiratory Rate: 16 Pulse Ox: 99 Oxygen Delivery Method: Simple Mask Oxygen Flow Rate (L/min): 6 Assessment Airway patent: Yes Spontaneous unlabored respirations: Yes Mental status: Awake and Calm nausea: No Vomiting: No Anesthesia Complication: No Fluid Hydration Crystalloid volume administer (ml): 2,100 Total IV fluid infused: 2,100 Progress Note Anesthesia document: Postop Eval 1 completed: Yes
--- NOTE | 2025-05-07 13:44 | POSTOPAN2_ITS ---
Anesthesia Postop Eval I Sum Postop Eval Completion status Anesthesia document: Postop Eval 1 completed: Yes Anesthesia Postop Eval I Summary Anesthesia Postop Eval I Summary: Anesthesia Postop Eval I: Assessment Summary Airway patent Yes 05/07/25 12:58 NEON SIGN [email or web address].[email or web address] Spontaneous unlabored Yes 05/07/25 12:58 NEON SIGN INSTALLER.GDOTT respirations Mental status Awake,Calm 05/07/25 12:58 NEON SIGN INSTALLER.GDOTT nausea No 05/07/25 12:58 NEON SIGN INSTALLER.GDOTT Vomiting No 05/07/25 12:58 NEON SIGN INSTALLER.GDOTT Anesthesia Postop Eval I: Fluid Summary Crystalloid volume administer 2,100 05/07/25 12:58 NEON SIGN INSTALLER.GDOTT (ml) Colloids volume administered ( ml) Blood Product volume administered (ml) Total IV fluid infused 2,100 05/07/25 12:58 NEON SIGN INSTALLER.GDOTT Anesthesia Postop Eval I: Summary Notes Anesthesia Complication No 05/07/25 12:58 NEON SIGN INSTALLER.GDOTT Anesthesia Complication Comment: Post-operative progress note Anesthesia: Postop Eval II Evaluation Mental status: Awake and Calm Pain Level: 1 nausea: No Vomiting: No Complications Anesthesia Complication: No
--- NOTE | 2025-05-07 13:44 | PCM.POSTANE2 ---
Anesthesia Postop Eval I Sum Postop Eval Completion status Anesthesia document: Postop Eval 1 completed: Yes Anesthesia Postop Eval I Summary Anesthesia Postop Eval I Summary: Anesthesia Postop Eval I: Assessment Summary Airway patent Yes 05/07/25 12:58 PRECIPITATOR OPERATOR.[email or web address] Spontaneous unlabored Yes 05/07/25 12:58 PRECIPITATOR OPERATOR.GDOTT respirations Mental status Awake,Calm 05/07/25 12:58 PRECIPITATOR OPERATOR.GDOTT nausea No 05/07/25 12:58 PRECIPITATOR OPERATOR.GDOTT Vomiting No 05/07/25 12:58 PRECIPITATOR OPERATOR.GDOTT Anesthesia Postop Eval I: Fluid Summary Crystalloid volume administer 2,100 05/07/25 12:58 PRECIPITATOR OPERATOR.GDOTT (ml) Colloids volume administered ( ml) Blood Product volume administered (ml) Total IV fluid infused 2,100 05/07/25 12:58 PRECIPITATOR OPERATOR.GDOTT Anesthesia Postop Eval I: Summary Notes Anesthesia Complication No 05/07/25 12:58 PRECIPITATOR OPERATOR.GDOTT Anesthesia Complication Comment: Post-operative progress note Anesthesia: Postop Eval II Evaluation Mental status: Awake and Calm Pain Level: 1 nausea: No Vomiting: No Complications Anesthesia Complication: No
--- NOTE | 2025-05-07 14:43 | PCM.OPRPT ---
Operative Report (Standard) Operative Information Date of Procedure: 05/07/25 Pre-Operative Diagnosis: Macromastia Post-Operative Diagnosis: Same Surgery/Procedure Performed: 1) Breast reduction (bilateral), inferior pedicle with boland pattern skin resection and axillary/lateral chest liposuction (CPT: 15924 x 2 with 50 modifier) linux security administrator: Yes Legal Consultant: martínez Tasks completed by assistant infant toddler teacher: Closing and Retracting Type of Anesthesia: General/Supplemental (200 cc of tumescent solution in each lateral chest/axilla (mixture of 1 L lactated Ringer's, 50 cc of 1% lidocaine, and 1 mg of epinephrine). 18 cc of quarter percent Marcaine with 1 200,000 epinephrine for local block) RN Documented Start/Stop Times: Operation Date: 05/07/25 08:00 Case Time Into Pre-Op 05/07/25 06:36 Anesthesia Start 05/07/25 08:17 Into Room 05/07/25 08:17 Procedure Start 05/07/25 08:57 Procedure End 05/07/25 12:35 Anesthesia End 05/07/25 12:49 Out of Room 05/07/25 12:49 Into Recovery 05/07/25 12:52 Procedure Start Time: 08:57 Procedure Stop Time: 12:35 Select all DRAINS/GRAFTS/IMPLANTS that apply: None Estimated Blood Loss: 200 cc Specimen collected: Yes Description of specimen(s) removed: Right and Left breast tissue from resection Description of surgery: Indications: Patria Johnson is a delightful 54-year-old female with macromastia. She has neck and back pain as well as shoulder grooving from the large breasts. She presents today for breast reduction. She understands the risk benefits and alternatives to the procedure. Procedure details: Patient was marked in preoperative holding and taken back to the operating room where she was administered general anesthesia and the above-noted local and tumescent. He was given time to take effect. She was prepped and draped in sterile fashion all proper timeouts were performed per protocol. A 10 blade scalpel was used to excise the Boland pattern juares on the left breast without committing to the superior nipple position. The inferior pedicle was then incised which was 10 cm wide. Bovie electrocautery was taken down to the chest through the breast tissue to develop the inferior pedicle. Dissection was then carried out above the fascia of the pectoralis muscle to nearly the level of the clavicle. The anticipated wedge resections medially and laterally were excised full-thickness with the Bovie electrocautery and the medial and lateral and superior aspects of the Boland pattern flap was then dissected along the level of the breast parenchyma with Bovie electrocautery. The tissue was then grouped together and weighed and was 528 g. The same procedure was performed on the right side with a 554 g removal. 150 cc was then aspirated from the bilateral axilla/lateral chest wall for further resection of tissue and to improve contour. Hemostasis obtained with Bovie electrocautery and the cavity was washed out with copious months normal saline. The flaps were then tacked into place with alexandrea and the patient was sat up. Following confirmation of adequate symmetry and reduction volume, we confirmed the nipple position that had been marked preoperatively and checked the nipple for viability. Both nipples were warm and well-perfused with less than 2-second capillary refill. We therefore excised the keyhole full-thickness so as to provide a position for the nipple (this was included in the above-noted weights). The cavity was irrigated with copious amounts normal saline and Irrisept. 19 Tamazight Fabian drains were tunneled out laterally. Hemostasis was confirmed with Bovie electrocautery. The Boland pattern flaps and the nipples were then inset with 3-0 Monocryl deep sutures. The nipple was further inset with 4-0 Monocryl running subcuticular sutures. Insorb was then used for the horizontal and vertical limbs for additional closure. 3-0 Monocryl running subcuticular sutures were then placed for the vertical and horizontal limbs as well as pernio tape/Dermabond. Steri-Strips were placed around the nipple. The nipples were warm and viable at the end of the case. Patient was awakened taken the PACU in stable condition. ABDs and a surgical bra were applied. She tolerated the procedure well. Postoperative plan: Admit overnight for postoperative monitoring. Anticipate discharge in the morning Surgical Findings: Left breast: 528 g removed from resection, 175 cc of Lipo aspirate removed Right breast: 554 g removed from resection, 175 cc of Lipo aspirate removed Complications Complications: No Admit VTE Documentation VTE Mechan Device Prophylaxis: SCD's
[2025-05-07] MEDS: buPROPion (XL) 150 MG TABLET.XL PO ×2 (16:26→21:29)
[2025-05-08 01:50] VITALS: BP 120/76; PULSE 103; RESP 16; TEMP 36.6; O2SAT 92
--- OUTSIDE RECORDS SUMMARY | 2025-05-08 03:34 | XMS RPT_ITS | CCD ---
Author Organization [facility] Care Team Providers Care Lead Burner Name Role Phone Dr. Ghazala Keyes Chi Primary Care Provider Dr. Ghazala Keyes Chi Referring Provider Dr. Tammy Sears Attending Provider GHAZALA KEYES CHI Primary Care Unavailable CAROLINA SANTANA Attending Unavailable Collins DO, Clemencia Primary Care Provider Collins , Clemencia Referring Provider [phone] Dr. Yannick Bourne MD Attending Provider Bhargavi CHECK PILOT-C, Santa E Attending Provider Bhargavi CHECK PILOT-C, Santa E Referring Provider Collins VSC, Clemencia Referring Unavailable Collins VSC, Clemencia Primary Care Unavailable Yannick Bourne Attending Unavailable Shannon More Attending Unavailable Collins VSC, Clemencia Primary Care Unavailable Yannick Bourne Referring Unavailable Florentin Rayo Attending Unavailable Collins VSC, Clemencia Primary Care Unavailable Yannick Bourne Referring Unavailable Collins VSC, Clemencia Primary Care Unavailable Yannick Bourne Admitting Unavailable Yannick Bourne Attending Unavailable Collins VSC, Clemencia Primary Care Unavailable Collins VSC, Clemencia Attending Unavailable Collins VSC, Clemencia Primary Care Unavailable Bhargavi CHECK PILOT, Santa E Attending Unavailerica e Bhargavi CHECK PILOT, Santa E Referring Unavailerica e Collins VSC, Clemencia Primary Care Unavailable Collins VSC, Clemencia Referring Unavailable Yannick Bourne Attending Unavailable Allergies Allergy Classification Reported Allergen(s) Allergy Type Date of Onset Reaction(s) Facility (7 sources) Erythromycin Drug Allergy 2 Anaphylaxis [facility] (7 sources) Penicillin V Drug Allergy 2 unknown [facility] (9 sources) Sulfonamides (Antibiotic); Translations: [SULFA (SULFONAMIDE ANTIBIOTICS)] Allergy to substance 7 Anaphylaxis [facility] (1 source) Erythromycin; Translations: [ERYTHROMYCIN] Drug Allergy 7 [facility] (1 source) Penicillins; Translations: [PENICILLINS] Propensity to adverse reactions to drug (disorder) 7 [facility] (1 source) Erythromycin Drug Allergy 5 [facility] (1 source) Penicillin Drug Allergy 5 [facility] Medications Current Medications Medication Drug Class(es) Dates Sig (Normalized) Sig (Original) 24 hr buPROPion hydrochloride 150 mg extended release oral tablet (8 sources) Aminoketone Start: 12-26-2024 take 1 tablet by mouth once daily Bupropion Hcl 150 mg tablet extended release 24 hr Active 150 mg PO daily December 26, 2024 1:00am Start: 01-16-2018 End: 01-06-2022 take 1 tablet by mouth once daily Bupropion Hcl (Wellbutrin Sr) 100 mg tablet extended release 12 hr Discontinued 100 mg PO daily January 16, 2018 12:00am January 06, 2022 10:41am FLUoxetine 40 mg oral capsule (7 sources) Serotonin Reuptake Inhibitor Start: 01-06-2022 take 1 capsule by mouth once daily Fluoxetine (Prozac) 40 mg capsule Active 40 mg PO DAILY January 06, 2022 1:00am levonorgestrel 0.309725 mg/hr intrauterine system (14 sources) Progestin, Progestin-containi ng Intrauterine Device Start: 01-06-2022 Levonorgestrel (Liletta) 20.1 mcg/24 hrs (6 yrs) 52 mg intrauterine device Active 1 NMA INTRA-UTER ONCE January 06, 2022 1:00am as a single dose Start: 01-06-2022 Levonorgestrel (Liletta) 20.1 mcg/24 hrs (6 yrs) 52 mg intrauterine device Active 1 DEVICE INTRA-UTER ONCE January 06, 2022 1:00am as a single dose Start: 01-06-2022 End: 01-06-2022 Levonorgestrel (Mirena) 20 m cg/24 hours (7 yrs) 52 mg intrauterine device Discontinued 1 NMA INTRA-UTER ONCE January 06, 2022 1:00am January 06, 2022 10:46am as a single dose Start: 01-06-2022 End: 01-06-2022 Levonorgestrel (Mirena) 20 m cg/24 hours (7 yrs) 52 mg intrauterine device Discontinued 1 DEVICE INTRA-UTER ONCE January 06, 2022 1:00am January 06, 2022 10:46am as a single dose lisinopril 5 mg oral tablet (7 sources) Angiotensin Converting Enzyme Inhibitor Start: 01-16-2018 take 1 tablet by mouth once daily Lisinopril 5 mg tablet Active 5 mg PO daily January 16, 2018 12:00am potassium chloride 10 meq extended release oral tablet (7 sources) Start: 01-16-2018 Potassium Chlo ride (Klor-Con 10) 10 mEq tablet extended release Active 10 meq PO daily January 16, 2018 12:00am Tirzepatide (Mounjaro) 2.5 mg/0.5 mL pen injector (1 source) Start: 12-26-2024 Tirzepatide (Mounjaro) 2.5 mg/0.5 mL pen injector Active mg SC EVERY WEEK December 26, 2024 1:00am valACYclovir 500 mg oral tablet (7 sources) Herpesvirus Nucleoside Analog DNA Polymerase Inhibitor, Herpes Simplex Virus Nucleoside Analog DNA Polymerase Inhibitor, Herpes Zoster Virus Nucleoside Analog DNA Polymerase Inhibitor Start: 01-06-2022 take 1 tablet by mouth twice daily Valacyclovir (Valtrex) 500 mg tablet Active 500 mg PO TWICE A DAY 60 30 January 06, 2022 1:00am Completed/Discontinued Medications Medication Drug Class(es) Dates Sig (Normalized) Sig (Original) hyoscyamine sulfate 0.125 mg oral tablet (7 sources) Start: 01-16-2018 End: 12-26-2024 Hyoscyamine Sulfate (Levsin) 0.125 mg tablet Discontinued 0.125 mg PO 2 to 4 times per day as needed January 16, 2018 12:00am December 26, 2024 2:54pm Problems Problem Classification Problem Date Documented Date Episodic/Chronic Contraceptive and procreative management (8 sources) Patient encounter status; Translations: [Encounter for contraceptive management, unspecified] 01-05-2022 Episodic Comment on above: Yasmany 09/11/20 Diabetes mellitus with complications (1 source) Type 2 diabetes mellitus with other specified complication; Translations: [Type 2 diabetes mellitus with other specified complication] Onset: 08-16-2024 Chronic Fluid and electrolyte disorders (1 source) Dehydration; Translations: [Dehydration] Onset: 05-20-2024 Episodic Menopausal disorders (5 sources) Perimenopausal state; Translations: [Menopausal and female climacteric states] 01-18-2023 Chronic Mood disorders (7 sources) Depressive disorder; Translations: [Depression] 01-06-2022 Chronic Noninfectious gastroenteritis (1 source) Noninfective gastroenteritis and colitis, unspecified; Translations: [Gastroenteritis] Onset: 05-20-2024 Episodic Nonmalignant breast conditions (3 sources) Large breast; Translations: [Hypertrophy of breast] Onset: 02-27-2025 12-26-2024 Episodic Other screening for suspected conditions (not mental disorders or infectious disease) (1 source) Encounter for screening mammogram for malignant neoplasm of breast; Translations: [Encounter for screening mammogram for malignant neoplasm of breast] Onset: 01-21-2025 Episodic Results Test Name Value Interpretation Reference Range Facility 12 Lead EKGon 04-01-2025 12 Lead EKG [facility] Cardiovascular Services [address] [place] [address] 12 Lead EKG 04/01/25 1314 MR#: [id number] Acct: [id number] Name: ANEUDY CASTRO Rep #: [id number] : 1970 54 From: Florentin Rayo MD Attending Dr: Dr. Yannick Bourne MD Status: PRE [facility] Ordering Dr: Anupam Newby MD Date: 04/01/25 Location: [facility] Sex: F C Admitted: Test Reason : PRE OP Blood Pressure : */* mmHG Vent. Rate : 90 BPM Atrial Rate : 90 BPM P-R Int : 152 ms QRS Dur : 84 ms QT Int : 360 ms P-R-T Axes : 51 44 47 degrees QTcB Int : 440 ms Normal sinus rhythm Normal ECG Confirmed by Florentin Rayo ([id number]), video effects editor UVALDO LUGO ([id number]) on 04/02/2025 5:49:56 AM Referred By: Yannick Bourne Confirmed By: Florentin Rayo 04/02/25 0549 Date Florentin Rayo MD CC: Dr. Anupam Newby MD; Dr. Yannick Bourne MD; Clemencia Guadalupe DO Signed Normal [facility] Basic Metabolic Profile (BMP )on 04-01-2025 BUN/CRE 14.7 RATIO Normal 10-20 [facility] Comment on above: Performed By: #### L 100.0500, L300.3900, L500.2500, L300.4310, L500.3400, L501.9985 #### [facility] [address] [place], [address] Calcium [Mass/Vol] 9.4 mg/dL Normal 7.6-11.0 [facility] Comment on above: Performed By: #### L 100.0500, L300.3900, L500.2500, L300.4310, L500.3400, L501.9985 #### [facility] [address] [place], [address] Chloride [Moles/Vol] 104 mmol/L Normal 98-108 [facility] Comment on above: Performed By: #### L 100.0500, L300.3900, L500.2500, L300.4310, L500.3400, L501.9985 #### [facility] [address] [place], [address] CO2 [Moles/Vol] 23.6 mmol/L Normal 21.0-32.0 [facility] Comment on above: Performed By: #### L 100.0500, L300.3900, L500.2500, L300.4310, L500.3400, L501.9985 #### [facility] [address] [place], [address] Creatinine [Mass/Vol] 0.92 mg/dL Normal 0.70-1.20 [facility] Comment on above: Performed By: #### L 100.0500, L300.3900, L500.2500, L300.4310, L500.3400, L501.9985 #### [facility] [address] [place], [address] GAP 12 Normal 5-15 [facility] Comment on above: Performed By: #### L 100.0500, L300.3900, L500.2500, L300.4310, L500.3400, L501.9985 #### [facility] [address] [place], [address] GFR/1.73 sq M.predicted among non-blacks MDRD (S/P/Bld) [Vol rate/Area] 75 mL/min/{1.73_m2} Normal >60 [facility] Comment on above: Result Comment: mL/m in/1.73m2 CKD-EPI Creatinine Equation (2020) Performed By: #### L 100.0500, L300.3900, L500.2500, L300.4310, L500.3400, L501.9985 #### [facility] [address] [place], [address] Glucose [Mass/Vol] 103 mg/dL High 70-99 [facility] Comment on above: Performed By: #### L 100.0500, L300.3900, L500.2500, L300.4310, L500.3400, L501.9985 #### [facility] [address] [place], [address] Potassium [Moles/Vol] 3.7 mmol/L Normal 3.3-5.1 [facility] Comment on above: Performed By: #### L 100.0500, L300.3900, L500.2500, L300.4310, L500.3400, L501.9985 #### [facility] [address] [place], [address] Sodium [Moles/Vol] 139 mmol/L Normal 133-145 [facility] Comment on above: Performed By: #### L 100.0500, L300.3900, L500.2500, L300.4310, L500.3400, L501.9985 #### [facility] [address] [place], [address] Urea nitrogen [Mass/Vol] 14 mg/dL Normal 4-19 [facility] Comment on above: Performed By: #### L 100.0500, L300.3900, L500.2500, L300.4310, L500.3400, L501.9985 #### [facility] [address] [place], [place], [id number] CBC-Complete Blood Cnt No Di ffon 04-01-2025 Erythrocyte distribution width (RBC) [Ratio] 13.0 % Normal 11.6-14.6 [facility] Comment on above: Performed By: #### L 100.0500, L300.3900, L500.2500, L300.4310, L500.3400, L501.9985 #### [facility] [address] [place], [place], [id number] [phone] Hematocrit (Bld) [Volume fraction] 40.0 % Normal 37-47 [facility] Comment on above: Performed By: #### L 100.0500, L300.3900, L500.2500, L300.4310, L500.3400, L501.9985 #### [facility] [address] [place], [address] Hemoglobin (Bld) [Mass/Vol] 14.1 g/dL Normal 12.0-15.0 [facility] Comment on above: Performed By: #### L 100.0500, L300.3900, L500.2500, L300.4310, L500.3400, L501.9985 #### [facility] [address] [place], [address] MCH (RBC) [Entitic mass] 30.0 pg Normal 27.0-32.0 [facility] Comment on above: Performed By: #### L 100.0500, L300.3900, L500.2500, L300.4310, L500.3400, L501.9985 #### [facility] [address] [place], [address] MCHC (RBC) [Mass/Vol] 35.3 g/dL Normal 32-36 [facility] Comment on above: Performed By: #### L 100.0500, L300.3900, L500.2500, L300.4310, L500.3400, L501.9985 #### [facility] [address] [place], [address] MCV (RBC) [Entitic vol] 85.1 fL Normal 81-99 [facility] Comment on above: Performed By: #### L 100.0500, L300.3900, L500.2500, L300.4310, L500.3400, L501.9985 #### [facility] [address] [place], [address] Platelet mean volume (Bld) [Entitic vol] 9.7 fL Normal 6.2-12.0 [facility] Comment on above: Performed By: #### L 100.0500, L300.3900, L500.2500, L300.4310, L500.3400, L501.9985 #### [facility] [address] [place], [address] Platelets (Bld) [#/Vol] 301 10*3/uL Normal 150-450 [facility] Comment on above: Performed By: #### L 100.0500, L300.3900, L500.2500, L300.4310, L500.3400, L501.9985 #### [facility] [address] [place], [address] RBC (Bld) [#/Vol] 4.70 10*6/uL Normal 4.2-5.4 [facility] Comment on above: Performed By: #### L 100.0500, L300.3900, L500.2500, L300.4310, L500.3400, L501.9985 #### [facility] [address] [place], [address] RDW SD 40.0 fl Normal 35.1-43.9 [facility] Comment on above: Performed By: #### L 100.0500, L300.3900, L500.2500, L300.4310, L500.3400, L501.9985 #### [facility] [address] [place], [address] WBC (Bld) [#/Vol] 8.3 10*3/uL Normal 4.4-11.0 [facility] Comment on above: Performed By: #### L 100.0500, L300.3900, L500.2500, L300.4310, L500.3400, L501.9985 #### [facility] [address] [place], [address] Hemoglobin A1con 04-01-2025 HbA1c (Bld) [Mass fraction] 6.3 % High <=5.6 [facility] Comment on above: Result Comment: Norm al < 5.7 % Prediabetic 5.7 - 6.4 % Diabetic >or= 6.5 % Please note range changes. Performed By: #### L 100.0500, L300.3900, L500.2500, L300.4310, L500.3400, L501.9985 #### [facility] [address] [place], [address] Liver Profileon 04-01-2025 Albumin [Mass/Vol] 4.4 g/dL Normal 3.5-5.0 [facility] Comment on above: Performed By: #### L 100.0500, L300.3900, L500.2500, L300.4310, L500.3400, L501.9985 #### [facility] [address] [place], [address] ALK PHOS 70 U/L Normal 35-104 [facility] Comment on above: Performed By: #### L 100.0500, L300.3900, L500.2500, L300.4310, L500.3400, L501.9985 #### [facility] [address] [place], [address] ALT [Catalytic activity/Vol] 19 U/L Normal <=34 [facility] Comment on above: Performed By: #### L 100.0500, L300.3900, L500.2500, L300.4310, L500.3400, L501.9985 #### [facility] [address] [place], [address] AST [Catalytic activity/Vol] 20 U/L Normal <=31 [facility] Comment on above: Performed By: #### L 100.0500, L300.3900, L500.2500, L300.4310, L500.3400, L501.9985 #### [facility] [address] [place], [address] Bilirubin [Mass/Vol] 0.69 mg/dL Normal 0.00-1.30 [facility] Comment on above: Performed By: #### L 100.0500, L300.3900, L500.2500, L300.4310, L500.3400, L501.9985 #### [facility] [address] [place], [address] Bilirubin.direct [Mass/Vol] 0.26 mg/dL Normal 0.00-0.30 [facility] Comment on above: Performed By: #### L 100.0500, L300.3900, L500.2500, L300.4310, L500.3400, L501.9985 #### [facility] [address] [place], [address] Globulin (S) [Mass/Vol] 2.5 g/dL Normal 2.2-4.2 [facility] Comment on above: Performed By: #### L 100.0500, L300.3900, L500.2500, L300.4310, L500.3400, L501.9985 #### [facility] [address] [place], [address] T PROT 6.8 g/dL Normal 5.9-8.4 [facility] Comment on above: Performed By: #### L 100.0500, L300.3900, L500.2500, L300.4310, L500.3400, L501.9985 #### [facility] [address] [place], [address] Partial Thromboplast Timeon 04-01-2025 aPTT Coag (Bld) [Time] 25.2 s Normal 24.1-36.2 [facility] Comment on above: Performed By: #### L 100.0500, L300.3900, L500.2500, L300.4310, L500.3400, L501.9985 #### [facility] [address] [place], [address] Prothrombin Time w/INRon INR Coag (PPP) [Relative time] 1.0 {INR} Normal [facility] Comment on above: Performed By: #### L 100.0500, L300.3900, L500.2500, L300.4310, L500.3400, L501.9985 #### [facility] [address] [place], [address] PT Coag (PPP) [Time] 13.3 s Normal 11.7-14.9 [facility] Comment on above: Performed By: #### L 100.0500, L300.3900, L500.2500, L300.4310, L500.3400, L501.9985 #### [facility] [address] [place], [address] Plastic Surgery Visit Report on 02-27-2025 Plastic Surgery Visit Report [facility] Plastic Reconstructive Surgery [address], [address] [place] [address] OFFICE VISIT Date of Service: 02/27/25 MR#: [id number] Acct: [id number] Name: ANEUDY CASTRO Rep #: [id number] : 1970 Provider: Dr. Yannick Bourne MD Age/Sex: 54/F Location: [facility] Status: Signed Intake Vital Signs 12/26/24 14:10 02/27/25 14:47 Height 5 ft 4 in Weight: 243 lb 6 oz BMI 41.8 BP 123/81 H 117/78 Blood Pressure Location Rt brachial Rt brachial Position Sitting Sitting Respiration 18 18 Pulse 93 93 Pulse Source Monitor Temp 98.3 F Temp Source Oral Pulse Oximetry (%) 96 97 Oxygen Delivery Method room air room air Intake Visit Reasons: pre op breast reduction Chief Complaint: pre op Is patient in pain?: No Allergies erythromycin base Allergy (Verified 02/27/25 14:37) Anaphylaxis penicillin V Allergy (Verified 02/27/25 14:37) unknown Sulfa (Sulfonamide Antibiotics) Allergy (Verified 02/27/25 14:37) Anaphylaxis Medications ???Medication ???Instructions ???Recorded ???Confirmed ???Type lisinopril 5 mg tablet 5 mg PO QDAY 01/16/18 02/27/25 His tory potassium chloride 10 mEq 10 meq PO QDAY 01/16/18 02/27/25 H istory tablet,extended release (Klor-Con) fluoxetine 40 mg capsule (Prozac) 40 mg PO DAILY 01/06/22 02/27/25 History levonorgestrel 20.4 mcg/24 hr (up 1 device intrauterine ONCE 02/27/25 History to 8 yrs) 52 mg intrauterine device (Liletta) valacyclovir 500 mg tablet 500 mg PO BID 30 days #60 tabs 08/2002/27/25 Rx (Valtrex) bupropion HCl 150 mg 24 hr tablet, 150 mg PO QDAY 12/26/24 02/27/25 History extended release tirzepatide 2.5 mg/0.5 mL mg subcut QWEEK 12/26/24 02/27/25 History subcutaneous pen injector (Mounjaro) [facility] Medical History Contraceptive management GERD (gastroesophageal reflux disease) Vitamin D deficiency Hyperhidrosis Hyperlipemia Hypertension Surgical History S/P cholecystectomy H/O: Family History Mother Hypertension CVA (cerebral vascular accident) Father Hypertension Social History Smoking Status: Never smoker alcohol intake: never substance use type: does not use caffeine: Yes what type of physical activity do you participate in: none seatbelt use: always do you feel safe at home: Yes 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, DENIES EDIBLES, DENIES MARIJUANA USE, NO FAMILY HISTORY OF BLOOD CLOTS HPI pre op breast reduction Details: Breast Reduction Ehsan Castro is a delightful 54-year-old female with past medical history of macromastia and subsequent back pain presenting today for breast reduction consultation. She reports difficulty exercising because of the pain from her large breasts. She has shoulder grooving from the bra strap. She never breast-fed (was unable to) and is not having children (had 1 child through section). She is not a smoker. No personal or family history of blood clots or bleeding diatheses. Patient has the following symptoms of macromastia: Shoulder Pain Shoulder Grooves??? Upper back pain Poor Posture Headaches ? Physical therapy for back pain: No ??? Chiropractic treatment: No ??? Home exercise: Yes ??? NSAID use: From time to time ??? Skin ulceration: No ??? Topical or oral antifungal agents: No ??? Participation in medically supervised weight loss program: Takes Mounjaro for her diabetes. She has been stable weight for over 6 months. She previously was on Ozempic where she lost 30 lbs but it caused her to start to have some memory issues so she was switched to Mounjaro. She regained her weight on the Monujaro but her blood sugars have improved. HgA1C is 6.0. ??? More info: HTN controlled with BP meds. No clotting issues. No family clotting issues. She is diabetic. A1C 6.0. She neck and back pain and headaches from her breasts. She has hyperhidrosis and sweats a lot. ??? Prior breast surgeries: No PAIN: out of aching pain of upper back ??? BRA SIZE: 42 DDD ??? DESIRED??? SIZE: B ??? OB HISTORY: PARA: 1 :??? No PLAN FOR FUTURE PREGNANCIES: None ??? HISTORY OF BREAST DISEASE: No PRIOR MAMMOGRAM: Yes but it has been 2 years. FAMILY HISTORY OF BREAST CANCER: No CURRENT ENCOUNTER, 27 Feb 2025: Doing well overall. Breast reduction was approved by insurance. She has a negative mammogram (December 2024). She would like to proceed with surgery. We are here to discuss postoperative plans/protocol as well as the surgery, including the risks, benefits, and alternatives (more content not included)... Normal [facility] Breast imaging reportOrdered By: Chacho Last on 01-14-2025 Study report [facility] Imaging Services [address] [place] [address] SCRN MAMM (CAD)W/ZOLTAN BILAT MR#: [id number] Acct: [id number] Name: ANEUDY CASTRO Rep #: [id number] : 1970 F 54 From: Bautista Last MD PCP: Clemencia Guadalupe DO Status: REG CLI Study:SCRN MAMM (CAD)W/ZOLTAN BILAT Date of Exa m: 01/13/25 Exam# [id number] Ordering Dr: Santa Burk CHECK PILOT CHECK PILOT-C EXAM: SCRN MAMM (CAD)W/ZOLTAN BILAT DATE: 01/13/2025 CLINICAL HISTORY: F, Age 54 y/o , SCREENING MAMMOGRAM. History of prior left excisional breast biopsy. TECHNIQUE: Bilateral screening digital breast tomosynthesis with 2D and 3D images. Computeraided detection. COMPARISON: Prior exam(s) dating back to April 17, 2017.. FINDINGS: Bilateral Breast Mammographic Findings: No significant masses, calcifications or other abnormalities are identified. TISSUE DENSITY: The breast tissue is almost entirely fatty. BI/SCRN MAMM (CAD)W/ZOLTAN BILAT IMPRESSION: Right Breast: BI-RADS category 1, negative findings. Left Breast: BI-RADS category 1, negative findings. Normal interval followup mammograms are recommended in 12 months. A letter with findings and recommendations will be mailed to the patient. ASSESSMENT: BIRADS 1 NEGATIVE RECOMMENDATION: 1: ROUTINE ANNUAL FOLLOW-UP Bilateral in 1 Year Reading Location: [place] [address] CC: CHECK PILOT-C Santa Burk; Clemencia Guadalupe DO ~ Hand Potter: Signed [facility] SCRN MAMM (CAD)W/ZOLTAN BILATo n 01-13-2025 SCRN MAMM (CAD)W/ZOLTAN BILAT [facility] Imaging Services [address] [place], [place] [address] SCRN MAMM (CAD)W/ZOLTAN BILAT MR#: [id number] Acct: [id number] Name: ANEUDY CASTRO Rep #: [id number] : 1970 F 54 From: Chacho holland MD PCP: Clemencia Guadalupe DO Status: REG CLI Study: SCRN MAMM (CAD)W/ZOLTAN BILAT Date of Exam: 12/28 05/23 Exam# [id number] Ordering Dr: Santa Burk CHECK PILOT CHECK PILOT-C EXAM: SCRN MAMM (CAD)W/ZOLTAN BILAT DATE: 01/13/2025 CLINICAL HISTORY: F, Age 54 y/o , SCREENING MAMMOGRAM. History of prior left excisional breast biopsy. TECHNIQUE: Bilateral screening digital breast tomosynthesis with 2D and 3D images. Computer aided detection. COMPARISON: Prior exam(s) dating back to April 17, 2017.. FINDINGS: Bilateral Breast Mammographic Findings: No significant masses, calcifications or other abnormalities are identified. TISSUE DENSITY: The breast tissue is almost entirely fatty. BI/SCRN MAMM (CAD)W/ZOLTAN BILAT IMPRESSION: Right Breast: BI-RADS category 1, negative findings. Left Breast: BI-RADS category 1, negative findings. Normal interval followup mammograms are recommended in 12 months. A letter with findings and recommendations will be mailed to the patient. ASSESSMENT: BIRADS 1 NEGATIVE RECOMMENDATION: 1: ROUTINE ANNUAL FOLLOW-UP Bilateral in 1 Year Reading Location: [place] [address] CC: MAGDA Burk; Clemencia Guadalupe DO Hand Potter: Signed Normal [facility] Plastic Surgery Visit Report on 12-26-2024 Plastic Surgery Visit Report [facility] Plastic Reconstructive Surgery [address], [address] [place] [address] OFFICE VISIT Date of Service: 12/26/24 MR#: [id number] Acct: [id number] Name: ANEUDY CASTRO Rep #: [id number] : 1970 Provider: Dr. Yannick Bourne MD Age/Sex: 54/F Location: [facility] Status: Signed Intake Vital Signs 01/18/23 15:50 12/26/24 14:10 Height 5 ft 4 in 5 ft 4 in Weight: 243 lb 6 oz BMI 41.8 BP 123/81 H Blood Pressure Location Rt brachial Position Sitting Respiration 18 Pulse 93 Temp 98.3 F Temp Source Oral Pulse Oximetry (%) 96 Oxygen Delivery Method room air Intake Visit Reasons: BREAST REDUCTION Chief Complaint: breast reduction consult and abdominoplasty Is patient in pain?: No Allergies erythromycin base Allergy (Verified 12/26/24 14:12) Anaphylaxis penicillin V Allergy (Verified 12/26/24 14:12) unknown Sulfa (Sulfonamide Antibiotics) Allergy (Verified 12/26/24 14:12) Anaphylaxis Medications ???Medication ???Instructions ???Recorded ???Confirmed ???Type lisinopril 5 mg tablet 5 mg PO QDAY 01/16/18 12/26/24 His tory potassium chloride 10 mEq 10 meq PO QDAY 01/16/18 12/26/24 H istory tablet,extended release (Klor-Con) fluoxetine 40 mg capsule (Prozac) 40 mg PO DAILY 01/06/22 12/26/24 History levonorgestrel 20.4 mcg/24 hr (up 1 device intrauterine ONCE 01/18/23 History to 8 yrs) 52 mg intrauterine device (Liletta) valacyclovir 500 mg tablet 500 mg PO BID 30 days #60 tabs 08/2001/18/23 Rx (Valtrex) bupropion HCl 150 mg 24 hr tablet, 150 mg PO QDAY 12/26/24 12/26/24 History extended release tirzepatide 2.5 mg/0.5 mL mg subcut QWEEK 12/26/24 12/26/24 History subcutaneous pen injector (Mounjaro) Nurse's Note: pt here for evaluation for breast reduction consult and abdominoplasty PFSH Medical History Contraceptive management GERD (gastroesophageal reflux disease) Vitamin D deficiency Hyperhidrosis Hyperlipemia Hypertension Surgical History S/P cholecystectomy H/O: Family History Mother Hypertension CVA (cerebral vascular accident) Father Hypertension Social History Smoking Status: Never smoker alcohol intake: never substance use type: does not use caffeine: Yes what type of physical activity do you participate in: none seatbelt use: always do you feel safe at home: Yes 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, DENIES EDIBLES, DENIES MARIJUANA USE, NO FAMILY HISTORY OF BLOOD CLOTS HPI BREAST REDUCTION Details: Breast Reduction Ehsan Castro is a delightful 54-year-old female with past medical history of macromastia and subsequent back pain presenting today for breast reduction consultation. She reports difficulty exercising because of the pain from her large breasts. She has shoulder grooving from the bra strap. She never breast-fed (was unable to) and is not having children (had 1 child through section). She is not a smoker. No personal or family history of blood clots or bleeding diatheses. Patient has the following symptoms of macromastia: Shoulder Pain Shoulder Grooves??? Upper back pain Poor Posture Headaches ? Physical therapy for back pain: No ??? Chiropractic treatment: No ??? Home exercise: Yes ??? NSAID use: From time to time ??? Skin ulceration: No ??? Topical or oral antifungal agents: No ??? Participation in medically supervised weight loss program: Takes Mounjaro for her diabetes. She has been stable weight for over 6 months. She previously was on Ozempic where she lost 30 lbs but it caused her to start to have some memory issues so she was switched to Mounjaro. She regained her weight on the Monujaro but her blood sugars have improved. HgA1C is 6.0. ??? More info: HTN controlled with BP meds. No clotting issues. No family clotting issues. She is diabetic. A1C 6.0. She neck and back pain and headaches from her breasts. She has hyperhidrosis and sweats a lot. ??? Prior breast surgeries: No PAIN: out of aching pain of upper back ??? BRA SIZE: 42 DDD ??? DESIRED??? SIZE: B ??? OB HISTORY: PARA: 1 :??? No PLAN FOR FUTURE PREGNANCIES: None ??? HISTORY OF BREAST DISEASE: No PRIOR MAMMOGRAM: Yes but it has been 2 years. FAMILY HISTORY OF BREAST CANCER: No ROS General General: Yes good health; No fatigue, fever(s) or weight loss HENMT HENMT: Yes rhinitis; No sore throat/mouth sore, nasal congestion, contacts or glaucoma Endo Endocrine: No thyroid disease, gabriela (more content not included)... Normal [facility] CBC W/Diff, Automatedon 10-0 Absolute Lymph 2.54 X10 3/uL Normal 0.83-4.51 [facility] Comment on above: Performed By: #### L 500.4050, L100.0100, L500.4100, L501.9520, L502.0500 ####[facility] [address] [place], [address] Absolute Neut 4.6 X10 3/uL Normal 2.0-7.7 [facility] Comment on above: Performed By: #### L 500.4050, L100.0100, L500.4100, L501.9520, L502.0500 ####[facility] [address] [place], [address] Basophils/100 WBC (Bld) 0.5 % Normal 0-1 [facility] Comment on above: Performed By: #### L 500.4050, L100.0100, L500.4100, L501.9520, L502.0500 ####[facility] [address] [place], [address] Eosinophils/100 WBC (Bld) 6.0 % High 0-5 [facility] Comment on above: Performed By: #### L 500.4050, L100.0100, L500.4100, L501.9520, L502.0500 ####[facility] [address] [place], [address] Erythrocyte distribution width (RBC) [Ratio] 12.7 % Normal 11.6-14.6 [facility] Comment on above: Performed By: #### L 500.4050, L100.0100, L500.4100, L501.9520, L502.0500 ####[facility] [address] [place], [address] Hematocrit (Bld) [Volume fraction] 42.2 % Normal 37-47 [facility] Comment on above: Performed By: #### L 500.4050, L100.0100, L500.4100, L501.9520, L502.0500 ####[facility] [address] [place], [address] Hemoglobin (Bld) [Mass/Vol] 14.2 g/dL Normal 12.0-15.0 [facility] Comment on above: Performed By: #### L 500.4050, L100.0100, L500.4100, L501.9520, L502.0500 ####[facility] [address] [place], [address] IG% 0.500 Normal 0.0-0.9 [facility] Comment on above: Result Comment: IG% - Immature Granulocytes (promyelocytes, myelocytes and metamyelocytes) > 1% indicates that a LEFT SHIFT is Present. Performed By: #### L 500.4050, L100.0100, L500.4100, L501.9520, L502.0500 ####[facility] [address] [place], [address] Lymphocytes/100 WBC (Bld) 29.9 % Normal 19-41 [facility] Comment on above: Performed By: #### L 500.4050, L100.0100, L500.4100, L501.9520, L502.0500 ####[facility] [address] [place], [address] MCH (RBC) [Entitic mass] 29.5 pg Normal 27.0-32.0 [facility] Comment on above: Performed By: #### L 500.4050, L100.0100, L500.4100, L501.9520, L502.0500 ####[facility] [address] [place], [address] MCHC (RBC) [Mass/Vol] 33.6 g/dL Normal 32-36 [facility] Comment on above: Performed By: #### L 500.4050, L100.0100, L500.4100, L501.9520, L502.0500 ####[facility] [address] [place], [address] MCV (RBC) [Entitic vol] 87.7 fL Normal 81-99 [facility] Comment on above: Performed By: #### L 500.4050, L100.0100, L500.4100, L501.9520, L502.0500 ####[facility] [address] [place], [address] Monocytes/100 WBC (Bld) 8.7 % Normal 0-10 [facility] Comment on above: Performed By: #### L 500.4050, L100.0100, L500.4100, L501.9520, L502.0500 ####[facility] [address] [place], [address] Neutrophils/100 WBC (Bld) 54.4 % Normal 47-70 [facility] Comment on above: Performed By: #### L 500.4050, L100.0100, L500.4100, L501.9520, L502.0500 ####[facility] [address] [place], [address] Nucleated RBC (Bld) [#/Vol] 0 10*3/uL Normal 0-5 [facility] Comment on above: Performed By: #### L 500.4050, L100.0100, L500.4100, L501.9520, L502.0500 ####[facility] [address] [place], [address] Platelet mean volume (Bld) [Entitic vol] 9.7 fL Normal 6.2-12.0 [facility] Comment on above: Performed By: #### L 500.4050, L100.0100, L500.4100, L501.9520, L502.0500 ####[facility] [address] [place], [address] Platelets (Bld) [#/Vol] 286 10*3/uL Normal 150-450 [facility] Comment on above: Performed By: #### L 500.4050, L100.0100, L500.4100, L501.9520, L502.0500 ####[facility] [address] [place], [address] RBC (Bld) [#/Vol] 4.81 10*6/uL Normal 4.2-5.4 [facility] Comment on above: Performed By: #### L 500.4050, L100.0100, L500.4100, L501.9520, L502.0500 ####[facility] [address] [place], [address] RDW SD 40.9 fl Normal 35.1-43.9 [facility] Comment on above: Performed By: #### L 500.4050, L100.0100, L500.4100, L501.9520, L502.0500 ####[facility] [address] [place], [address] WBC (Bld) [#/Vol] 8.5 10*3/uL Normal 4.4-11.0 [facility] Comment on above: Performed By: #### L 500.4050, L100.0100, L500.4100, L501.9520, L502.0500 ####[facility] [address] [place], [address] Comprehensive Metabolic Prof ilon 08-07-2024 Albumin [Mass/Vol] 3.9 g/dL Normal 3.2-5.0 [facility] Comment on above: Performed By: #### L 500.4050, L100.0100, L500.4100, L501.9520, L502.0500 ####[facility] [address] [place], [address] Albumin/Globulin [Mass ratio] 1.1 {ratio} Normal 0.9-2.4 [facility] Comment on above: Performed By: #### L 500.4050, L100.0100, L500.4100, L501.9520, L502.0500 ####[facility] [address] [place], [address] ALK P 62 U/L Normal 45-117 [facility] Comment on above: Performed By: #### L 500.4050, L100.0100, L500.4100, L501.9520, L502.0500 ####[facility] [address] [place], [address] ALT [Catalytic activity/Vol] 26 U/L Normal 13-56 [facility] Comment on above: Performed By: #### L 500.4050, L100.0100, L500.4100, L501.9520, L502.0500 ####[facility] [address] [place], [address] AST [Catalytic activity/Vol] 21 U/L Normal 15-37 [facility] Comment on above: Performed By: #### L 500.4050, L100.0100, L500.4100, L501.9520, L502.0500 ####[facility] [address] [place], [address] Bilirubin [Mass/Vol] 0.80 mg/dL Normal 0.20-1.00 [facility] Comment on above: Result Comment: For patients on eltrombopag therapy, use of Dimension Bloomer TBIL is not recommended. Performed By: #### L 500.4050, L100.0100, L500.4100, L501.9520, L502.0500 ####[facility] [address] [place], [address] BUN/CRE 15.3 RATIO Normal 10-20 [facility] Comment on above: Performed By: #### L 500.4050, L100.0100, L500.4100, L501.9520, L502.0500 ####[facility] [address] [place], [address] CA,Total 9.4 mg/dL Normal 8.5-10.1 [facility] Comment on above: Performed By: #### L 500.4050, L100.0100, L500.4100, L501.9520, L502.0500 ####[facility] [address] [place], [address] Chloride [Moles/Vol] 105 mmol/L Normal 98-107 [facility] Comment on above: Performed By: #### L 500.4050, L100.0100, L500.4100, L501.9520, L502.0500 ####[facility] [address] [place], [address] CO2 [Moles/Vol] 27.0 mmol/L Normal 21.0-32.0 [facility] Comment on above: Performed By: #### L 500.4050, L100.0100, L500.4100, L501.9520, L502.0500 ####[facility] [address] [place], [address] Creatinine [Mass/Vol] 0.91 mg/dL Normal 0.55-1.02 [facility] Comment on above: Result Comment: The validity of the calculated GFR GFRAA in patients over 70 years has not been determined. Clinical correlation is essential. Performed By: #### L 500.4050, L100.0100, L500.4100, L501.9520, L502.0500 ####[facility] [address] [place], [address] EST GFR - AA 83 mL/min Normal >60 [facility] Comment on above: Result Comment: Afri can [facility] GFR Calc Performed By: #### L 500.4050, L100.0100, L500.4100, L501.9520, L502.0500 ####[facility] [address] [place], [address] GAP 8 Normal 5-15 [facility] Comment on above: Performed By: #### L 500.4050, L100.0100, L500.4100, L501.9520, L502.0500 ####[facility] [address] [place], [address] GFR/1.73 sq M.predicted among non-blacks MDRD (S/P/Bld) [Vol rate/Area] 69 mL/min/{1.73_m2} Normal >60 [facility] Comment on above: Result Comment: Non- GFR Calc Performed By: #### L 500.4050, L100.0100, L500.4100, L501.9520, L502.0500 ####[facility] [address] [place], [address] Globulin (S) [Mass/Vol] 3.5 g/dL Normal 2.2-4.2 [facility] Comment on above: Performed By: #### L 500.4050, L100.0100, L500.4100, L501.9520, L502.0500 ####[facility] [address] [place], [address] Glucose [Mass/Vol] 97 mg/dL Normal 74-106 [facility] Comment on above: Performed By: #### L 500.4050, L100.0100, L500.4100, L501.9520, L502.0500 ####[facility] [address] [place], [address] Potassium [Moles/Vol] 3.9 mmol/L Normal 3.5-5.1 [facility] Comment on above: Performed By: #### L 500.4050, L100.0100, L500.4100, L501.9520, L502.0500 ####[facility] [address] [place], [address] Sodium [Moles/Vol] 140 mmol/L Normal 136-145 [facility] Comment on above: Performed By: #### L 500.4050, L100.0100, L500.4100, L501.9520, L502.0500 ####[facility] [address] [place], [address] T PROT 7.4 g/dL Normal 6.4-8.2 [facility] Comment on above: Performed By: #### L 500.4050, L100.0100, L500.4100, L501.9520, L502.0500 ####[facility] [address] [place], [address] Urea nitrogen [Mass/Vol] 14 mg/dL Normal 7-18 [facility] Comment on above: Performed By: #### L 500.4050, L100.0100, L500.4100, L501.9520, L502.0500 ####[facility] [address] [place], [address] Lipid Profileon 08-07-2024 Cholesterol [Mass/Vol] 191 mg/dL Normal 200 [facility] Comment on above: Result Comment: <200 mg/dL Desirable 200-240 mg/dL Borderline >240 mg/dL High Risk Performed By: #### L 500.4050, L100.0100, L500.4100, L501.9520, L502.0500 ####[facility] [address] [place], [address] Cholesterol in HDL [Mass/Vol] 49 mg/dL Normal [facility] Comment on above: Result Comment: The drugs N-Acetylcysteine and Metamizole may falsely depress this assay. Reference Range HDL <40 mg/dL Low HDL Cholesterol HDL >or= 60 mg/dL High HDL Cholesterol Performed By: #### L 500.4050, L100.0100, L500.4100, L501.9520, L502.0500 ####[facility] [address] [place], [address] Cholesterol in LDL [Mass/Vol] 99 mg/dL Normal 0-130 [facility] Comment on above: Performed By: #### L 500.4050, L100.0100, L500.4100, L501.9520, L502.0500 ####[facility] [address] [place], [address] Cholesterol in VLDL [Mass/Vol] 43 mg/dL High 5-40 [facility] Comment on above: Performed By: #### L 500.4050, L100.0100, L500.4100, L501.9520, L502.0500 ####[facility] [address] [place], [address] Triglyceride [Mass/Vol] 213 mg/dL High [facility] Comment on above: Result Comment: The drugs N-Acetylcysteine and Metamizole may falsely depress this assay. Serum Triglycerides Reference Interval Normal <150 mg/dL Borderline high 150 - 199 mg/dL High 200 - 499 mg/dL Very High > or = 500 mg/dL Performed By: #### L 500.4050, L100.0100, L500.4100, L501.9520, L502.0500 ####[facility] [address] [place], [address] Microalbumin,Random Urineon 08-07-2024 MICROALBUMIN,UR 6.7 mg/L Normal NO RANGE EST. [facility] Comment on above: Performed By: #### L 500.4050, L100.0100, L500.4100, L501.9520, L502.0500 ####[facility] [address] [place], [address] Thyroid Stim Hormone (TSH)on 08-07-2024 TSH 0.751 uIU/mL Normal 0.358-3.740 [facility] Comment on above: Performed By: #### L 500.4050, L100.0100, L500.4100, L501.9520, L502.0500 ####[facility] [address] [place], [address] CBC W Auto Differential pane l (Bld)on 05-20-2024 Basophils (Bld) [#/Vol] 10*3/uL Normal <0.11 [facility] Comment on above: Order Comment: Speci men Type: BLOOD SPECIMEN Ordering Facility: [facility] Address: [address] [place] [address] Performed By: #### 5 7021-8 #### [facility] CLIA [id number] [address] [place] [address] [place] Basophils/100 WBC (Bld) 0.2 % Normal [facility] Comment on above: Order Comment: Speci men Type: BLOOD SPECIMEN Ordering Facility: [facility] Address: [address] [place] [address] Performed By: #### 5 7021-8 #### [facility] CLIA [id number] [address] [place] [address] [place] Differential cell count method Nom (Bld) Auto Normal [facility] Comment on above: Order Comment: Speci men Type: BLOOD SPECIMEN Ordering Facility: [facility] Address: [address] [place] [address] Performed By: #### 5 7021-8 #### [facility] CLIA [id number] [address] [place] [address] [place] Eosinophils (Bld) [#/Vol] 0.51 10*3/uL High <0.46 [facility] Comment on above: Order Comment: Speci men Type: BLOOD SPECIMEN Ordering Facility: [facility] Address: [address] [place] [address] Performed By: #### 5 7021-8 #### [facility] CLIA [id number] [address] [place] [address] [place] Eosinophils/100 WBC (Bld) 4.8 % Normal [facility] Comment on above: Order Comment: Speci men Type: BLOOD SPECIMEN Ordering Facility: [facility] Address: [address] [place] [address] Performed By: #### 5 7021-8 #### [facility] CLIA [id number] [address] [place] [address] [place] Erythrocyte distribution width (RBC) [Ratio] 12.8 % Normal 11.5-15.0 [facility] Comment on above: Order Comment: Speci men Type: BLOOD SPECIMEN Ordering Facility: [facility] Address: [address] [place] [address] Performed By: #### 5 7021-8 #### [facility] CLIA [id number] [address] [place] [id number] [place] Hematocrit (Bld) [Volume fraction] 44.2 % Normal 36.0-46.0 [facility] Comment on above: Order Comment: Speci men Type: BLOOD SPECIMEN Ordering Facility: [facility] Address: [address] [place] [address] Performed By: #### 5 7021-8 #### [facility] CLIA [id number] [address] [place] [address] [place] Hemoglobin (Bld) [Mass/Vol] 15.0 g/dL Normal 11.5-15.5 [facility] Comment on above: Order Comment: Speci men Type: BLOOD SPECIMEN Ordering Facility: [facility] Address: [address] [place] [address] Performed By: #### 5 7021-8 #### [facility] CLIA [id number] [address] [place] [address] [place] Immature granulocytes (Bld) [#/Vol] 0.05 10*3/uL Normal <0.10 [facility] Comment on above: Order Comment: Speci men Type: BLOOD SPECIMEN Ordering Facility: [facility] Address: [address] [place] [address] Performed By: #### 5 7021-8 #### [facility] CLIA [id number] [address] [place], [place] [id number] [place] [address] [place] Immature granulocytes/100 WBC (Bld) 0.5 % Normal [facility] Comment on above: Order Comment: Speci men Type: BLOOD SPECIMEN Ordering Facility: [facility] Address: [address] [place] [address] Performed By: #### 5 7021-8 #### [facility] CLIA [id number] [address] [place] [address] [place] Lymphocytes (Bld) [#/Vol] 1.69 10*3/uL Normal 1.00-4.00 [facility] Comment on above: Order Comment: Speci men Type: BLOOD SPECIMEN Ordering Facility: [facility] Address: [address] [place] [address] Performed By: #### 5 7021-8 #### [facility] CLIA [id number] [address] [place] [address] [place] Lymphocytes/100 WBC (Bld) 15.9 % Normal [facility] Comment on above: Order Comment: Speci men Type: BLOOD SPECIMEN Ordering Facility: [facility] Address: [address] [place] [address] Performed By: #### 5 7021-8 #### [facility] CLIA [id number] [address] [place] [address] [place] MCH (RBC) [Entitic mass] 30.4 pg Normal 26.0-34.0 [facility] Comment on above: Order Comment: Speci men Type: BLOOD SPECIMEN Ordering Facility: [facility] Address: [address] [place] [address] Performed By: #### 5 7021-8 #### [facility] CLIA [id number] [address] [place] [address] [place] MCHC (RBC) [Mass/Vol] 33.9 g/dL Normal 30.5-36.0 [facility] Comment on above: Order Comment: Speci men Type: BLOOD SPECIMEN Ordering Facility: [facility] Address: [address] [place] [address] Performed By: #### 5 7021-8 #### [facility] CLIA [id number] [address] [place] [address] [facility] [place] MCV (RBC) [Entitic vol] 89.7 fL Normal 80.0-100.0 [facility] Comment on above: Order Comment: Speci men Type: BLOOD SPECIMEN Ordering Facility: [facility] Address: [address] [place] [address] Performed By: #### 5 7021-8 #### [facility] CLIA [id number] [address] [place], [place] [id number] [place] [address] [place] Monocytes (Bld) [#/Vol] 0.66 10*3/uL Normal <0.87 [facility] Comment on above: Order Comment: Speci men Type: BLOOD SPECIMEN Ordering Facility: [facility] Address: [address] [place] [address] Performed By: #### 5 7021-8 #### [facility] CLIA [id number] [address] [place] [address] [facility] [place] Monocytes/100 WBC (Bld) 6.2 % Normal [facility] Comment on above: Order Comment: Speci men Type: BLOOD SPECIMEN Ordering Facility: [facility] Address: [address] [place] [address] Performed By: #### 5 7021-8 #### [facility] CLIA [id number] [address] [place] [address] [place] Neutrophils (Bld) [#/Vol] 7.70 10*3/uL High 1.45-7.50 [facility] Comment on above: Order Comment: Speci men Type: BLOOD SPECIMEN Ordering Facility: [facility] Address: [address] [place] [address] Performed By: #### 5 7021-8 #### [facility] CLIA [id number] [address] [place] [address] [place] Neutrophils/100 WBC (Bld) 72.4 % Normal [facility] Comment on above: Order Comment: Speci men Type: BLOOD SPECIMEN Ordering Facility: [facility] Address: [address] [place] [address] Performed By: #### 5 7021-8 #### [facility] CLIA [id number] [address] [place] [address] [place] Nucleated RBC (Bld) [#/Vol] Normal [facility] Comment on above: Order Comment: Speci men Type: BLOOD SPECIMEN Ordering Facility: [facility] Address: [address] [place] [address] Performed By: #### 5 7021-8 #### [facility] CLIA [id number] [address] [place] [address] [place] Nucleated RBC/100 WBC (Bld) [Ratio] Normal [facility] Comment on above: Order Comment: Speci men Type: BLOOD SPECIMEN Ordering Facility: [facility] Address: [address] [place] [address] Performed By: #### 5 7021-8 #### [facility] CLIA [id number] [address] [place] [address] [place] Platelet mean volume (Bld) [Entitic vol] 9.2 fL Normal 9.0-12.7 [facility] Comment on above: Order Comment: Speci men Type: BLOOD SPECIMEN Ordering Facility: [facility] Address: [address] [place] [address] Performed By: #### 5 7021-8 #### [facility] CLIA [id number] [address] [place] [address] [place] Platelets (Bld) [#/Vol] 306 10*3/uL Normal 150-400 [facility] Comment on above: Order Comment: Speci men Type: BLOOD SPECIMEN Ordering Facility: [facility] Address: [address] [place] [address] Performed By: #### 5 7021-8 #### [facility] CLIA [id number] [address] [place] [address] [place] [facility] RBC (Bld) [#/Vol] 4.93 10*6/uL Normal 3.90-5.20 [facility] Comment on above: Order Comment: Speci men Type: BLOOD SPECIMEN Ordering Facility: [facility] Address: [address] [place] [address] Performed By: #### 5 7021-8 #### [facility] CLIA [id number] [address] [place] [address] [facility] WBC (Bld) [#/Vol] 10.63 10*3/uL Normal 3.70-11.00 [facility] Comment on above: Order Comment: Speci men Type: BLOOD SPECIMEN Ordering Facility: [facility] Address: [address] [place] [address] Performed By: #### 5 7021-8 #### [facility] CLIA [id number] [address] [place] [address] [facility] Comprehensive metabolic 2000 panelon 05-20-2024 Albumin [Mass/Vol] 4.3 g/dL Normal 3.9-4.9 [facility] Comment on above: Order Comment: Speci men Type: BLOOD SPECIMEN Ordering Facility: [facility] Address: [address] [place] [address] Performed By: #### 2 4323-8, 3040-3, 74075-0 #### [facility] CLIA [id number] [address] [place] [address] [facility] ALP [Catalytic activity/Vol] 77 U/L Normal 34-123 [facility] Comment on above: Order Comment: Speci men Type: BLOOD SPECIMEN Ordering Facility: [facility] Address: [address] [place] [address] Performed By: #### 2 4323-8, 3040-3, #### [facility] CLIA [id number] [address] [place] [address] [place] ALT With P-5'-P [Catalytic activity/Vol] 19 U/L Normal 7-38 [facility] Comment on above: Order Comment: Speci men Type: BLOOD SPECIMEN Ordering Facility: [facility] Address: [address] [place] [address] Performed By: #### 2 4323-8, 0-3, #### [facility] CLIA [id number] [address] [place] [address] [place] Anion gap [Moles/Vol] 11 mmol/L Normal 8-15 [facility] Comment on above: Order Comment: Speci men Type: BLOOD SPECIMEN Ordering Facility: [facility] Address: [address] [place] [address] Performed By: #### 2 4323-8, 3039-3, #### [facility] CLIA [id number] [address] [place] [address] [place] AST With P-5'-P [Catalytic activity/Vol] 17 U/L Normal 13-35 [facility] Comment on above: Order Comment: Speci men Type: BLOOD SPECIMEN Ordering Facility: [facility] Address: [address] [place] [address] Performed By: #### 2 4323-8, 3039-3, #### [facility] CLIA [id number] [address] [place] [address] [place] Bilirubin [Mass/Vol] 1.2 mg/dL Normal 0.2-1.3 [facility] Comment on above: Order Comment: Speci men Type: BLOOD SPECIMEN Ordering Facility: [facility] Address: [address] [place] [address] Performed By: #### 2 4323-8, 3040-3, #### [facility] CLIA [id number] [address] [place] [address] [place] Calcium [Mass/Vol] 9.0 mg/dL Normal 8.5-10.2 [facility] Comment on above: Order Comment: Speci men Type: BLOOD SPECIMEN Ordering Facility: [facility] Address: [address] [place] [address] Performed By: #### 2 4323-8, 3040-3, #### [facility] CLIA [id number] [address] [place] [address] [place] Chloride [Moles/Vol] 98 mmol/L Normal 98-107 [facility] Comment on above: Order Comment: Speci men Type: BLOOD SPECIMEN Ordering Facility: [facility] Address: [address] [place] [address] Performed By: #### 2 4323-8, 0-3, #### [facility] CLIA [id number] [address] [place] [address] [place] CO2 [Moles/Vol] 27 mmol/L Normal 22-30 [facility] Comment on above: Order Comment: Speci men Type: BLOOD SPECIMEN Ordering Facility: [facility] Address: [address] [place] [address] Performed By: #### 2 4323-8, 0-3, #### [facility] CLIA [id number] [address] [place] [address] [place] Creatinine [Mass/Vol] 0.89 mg/dL Normal 0.58-0.96 [facility] Comment on above: Order Comment: Speci men Type: BLOOD SPECIMEN Ordering Facility: [facility] Address: [address] [place] [address] Performed By: #### 2 4323-8, 3040-3, #### [facility] CLIA [id number] [address] [place] [address] [place] Creatinine and Glomerular filtration rate.predicted panel (S/P/Bld) 78 mL/min/1.73m??? Normal >=60 [facility] Comment on above: Order Comment: Ivan madsen Type: BLOOD SPECIMEN Ordering Facility: [facility] Address: [address] [place] [address] Result Comment: Mimi mated Glomerular Filtration Rate (eGFR) is calculated using the 2020 CKD-EPI creatinine equation. This equation utilizes serum creatinine, sex, and age as parameters. The creatinine assay has traceable calibration to isotope dilution-mass spectrometry. Refer to KDIGO guidelines for clinical interpretation. In patients with unstable renal function, e.g. those with acute kidney injury, the eGFR may not accurately reflect actual GFR. Performed By: #### 2 4323-8, 3040-3, #### [facility] CLIA [id number] [address] [place] [address] [place] Glucose [Mass/Vol] 137 mg/dL High 74-99 [facility] Comment on above: Order Comment: Ivan madsen Type: BLOOD SPECIMEN Ordering Facility: [facility] Address: [address] [place] [address] Result Comment: The [place] [employer] (ADA) provides guidance for cutoff values for fasting glucose and random glucose. The ADA defines fasting as no caloric intake for at least 8 hours. Fasting plasma glucose results between 100 to 125 mg/dL indicate increased risk for diabetes (prediabetes). Fasting plasma glucose results greater than or equal to 126 mg/dL meet the criteria for diagnosis of diabetes. In the absence of unequivocal hyperglycemia, results should be confirmed by repeat testing. In a patient with classic symptoms of hyperglycemia or hyperglycemic crisis, random plasma glucose results greater than or equal to 200 mg/dL meet the criteria for diagnosis of diabetes. Reference: Standards of Medical Care in Diabetes 2016, [place] [employer]. Diabetes Care. 2016.39(Suppl 1). Performed By: #### 2 4323-8, 3040-3, #### [facility] CLIA [id number] [address] [place] [address] [place] Potassium [Moles/Vol] 4.3 mmol/L Normal 3.7-5.1 [facility] Comment on above: Order Comment: Ivan madsen Type: BLOOD SPECIMEN Ordering Facility: [facility] Address: [address] [place], [place] [address] Performed By: #### 2 4323-8, 3040-3, #### [facility] CLIA [id number] [address] [place] [address] [place] Protein [Mass/Vol] 7.2 g/dL Normal 6.3-8.0 [facility] Comment on above: Order Comment: Speci men Type: BLOOD SPECIMEN Ordering Facility: [facility] Address: [address] [place], [place] [address] Performed By: #### 2 4323-8, 3040-3, #### [facility] CLIA [id number] [address] [place] [address] [place] Sodium [Moles/Vol] 136 mmol/L Normal 136-144 [facility] Comment on above: Order Comment: Speci men Type: BLOOD SPECIMEN Ordering Facility: [facility] Address: [address] [place] [address] Performed By: #### 2 4323-8, 3040-3, #### [facility] CLIA [id number] [address] [place] [address] [place] Urea nitrogen [Mass/Vol] 13 mg/dL Normal 7-21 [facility] Comment on above: Order Comment: Speci men Type: BLOOD SPECIMEN Ordering Facility: [facility] Address: [address] [place], [place] [address] Performed By: #### 2 4323-8, 3040-3, #### [facility] CLIA [id number] [address] [place] [address] [place] ED PROV NOTEon 05-20-2024 ED PROV NOTE HNO ID: [id number] Author: CAROLINA SANTANA MD Service: Emergency Medicine Author Type: Physician Type: ED Provider Notes Filed: 05/20/2024 17:09 Note Text: ED Provider Note Patient Name: Aneudy Castro : 1970 SERVICE DATE: 05/20/24 History Patient presents with: Nausea AND Vomiting Aneudy Castro is a 53 year old female with history of multiple chronic medical problems who presents with Nausea AND Vomiting. Patient took nothing for this prior to arrival. - Symptoms began 22 days prior to arrival. - Severity: moderate - Timing: intermittent - Quality: nausea and vomiting with some nonbloody diarrhea - Nausea AND Vomiting is exacerbated by po intake. - Nausea AND Vomiting is not exacerbated by movement. - Symptoms are associated with chills and headache. - Symptoms are not associated with URI symptoms. - Improved by nothing. - Not improved by rest About 4 hrs after eating at a restaurant where patient felt the food did not taste right she developed NVD . Not able to hold down much fluid. No localized abdominal pain . Chills Now has headache today. No recent travel or exposure hx. . PAST MEDICAL HISTORY Diagnosis Date - Allergic rhinitis, cause unspecified Allergic rhinitis - Hypertension - Irritable bowel syndrome - Other specified pruritic conditions PAST SURGICAL HISTORY Procedure Laterality Date - DELIVERY ONLY , low cervical - CHOLECYSTECTOMY No family history on file. Social History Tobacco Use - Smoking status: Never - Smokeless tobacco: Never Vaping Use - Vaping Use: Never used Substance and Sexual Activity - Alcohol use: Not Currently - Drug use: Never - Sexual activity: Not on file ALLERGIES Allergen Reactions - Erythromycin Shortness of Breath - Penicillins Shortness of Breath - Sulfa (Sulfonamide * Shortness of Breath Review of Systems Constitutional: Positive for chills and fatigue. Negative for fever. HENT: Negative for congestion and sore throat. Gastrointestinal: Positive for diarrhea, nausea and vomiting. Negative for abdominal pain. Genitourinary: Positive for decreased urine volume. Negative for dysuria and flank pain. Skin: Negative for rash. Allergic/Immunologic: Negative for environmental allergies, food allergies and immunocompromised state. Neurological: Positive for headaches. Negative for syncope and light-headedness. Psychiatric/Behaviora l: Negative for confusion. The patient is not nervous/anxious. Physical Exam Vitals [05/20/24 1502] BP Pulse Temp Temp src Resp SpO2 Weight Height 147/91 90 -- Temporal 16 97 % -- -- Physical Exam Vitals and nursing note reviewed. Constitutional: General: She is not in acute distress. Appearance: She is well-developed. She is not ill-appearing, toxic-appearing or diaphoretic. HENT: Head: Normocephalic and atraumatic. Mouth/Throat: Pharynx: Oropharynx is clear. No pharyngeal swelling. Eyes: General: No scleral icterus. Extraocular Movements: Extraocular movements intact. Cardiovascular: Rate and Rhythm: Normal rate and regular rhythm. Pulmonary: Effort: Pulmonary effort is normal. No respiratory distress. Breath sounds: Normal breath sounds. Abdominal: General: Abdomen is protuberant. Bowel sounds are normal. There is no distension. Palpations: Abdomen is soft. Tenderness: There is no abdominal tenderness. There is no right CVA tenderness or left CVA tenderness. Skin: General: Skin is warm and dry. Capillary Refill: Capillary refill takes less than 2 seconds. Findings: No rash. Neurological: General: No focal deficit present. Mental Status: She is alert and oriented to person, place, and time. Psychiatric: Mood and Affect: Mood normal. Mood is not anxious or depressed. Behavior: Behavior normal. Diagnostic Testing ED Labs Ordered and Reviewed - No data to display Procedures ED Course / Clinical Impression Clinical Impressions as of 05/20/24 1639 Gastroenteritis Dehydration MDM / Disposition / Plan Nontoxic, alert with normal vitals. Feels dehydrated . Supple neck not thunderclap onset headache. Will start with iv hydration and zofran and basic labs. No diarrhea today. had similar mild symptoms after eating same food Patient's symptoms improved significantly with IV fluids and Zofran labs are within normal limits. No emesis while in the emergency department patient did urinate normally. Toradol was given as she still had some slight headache patient desires to get home at this point I think there is no indication for transfer or admission she is advised if she has fever or blood in her stool to return otherwise she is going to continue her current medications will do outpatient Zofran ODT off work for 2 days recommend fluids followed by brat diet. History and Record Review Clinical information obtained from an independent historian. History obtain (more content not included)... Normal [facility] Lipase SerPl-cCncon 05-20-20 24 Lipase [Catalytic activity/Vol] 39 U/L Normal 16-61 [facility] Comment on above: Order Comment: Speci men Type: BLOOD SPECIMEN Ordering Facility: [facility] Address: [address] [place] [address] Performed By: #### 2 4323-8, 3040-3, #### [facility] CLIA [id number] [address] [place] [address] [facility] Magnesium SerPl-mCncon 05-20 Magnesium [Mass/Vol] 2.0 mg/dL Normal 1.7-2.3 [facility] Comment on above: Order Comment: Speci men Type: BLOOD SPECIMEN Ordering Facility: [facility] Address: [address] [place] [address] Performed By: #### 2 4323-8, 0-3, #### [facility] CLIA [id number] [address] [place] [address] [facility] Urinalysis complete panel (U )on 05-20-2024 Bacteria LM.HPF (Urine sed) [#/Area] Rare Abnormal None Seen [facility] Comment on above: Order Comment: Speci men Type: URINE SPECIMEN Ordering Facility: [facility] Address: [address] [place] [address] Performed By: #### 2 4356-8 #### [facility] CLIA [id number] [address] [place] [address] [facility] Bilirubin Ql (U) Negative Normal Negative [facility] Comment on above: Order Comment: Speci men Type: URINE SPECIMEN Ordering Facility: [facility] Address: [address] [place] [address] Performed By: #### 2 4356-8 #### [facility] CLIA [id number] [address] [place] [address] [facility] Clarity (Unsp spec) Slightly Cloudy Abnormal Clear [facility] Comment on above: Order Comment: Speci men Type: URINE SPECIMEN Ordering Facility: [facility] Address: [address] [place] [address] Performed By: #### 2 4356-8 #### [facility] CLIA [id number] [address] [place] [address] [facility] Color (U) Yellow Normal Yellow [facility] Comment on above: Order Comment: Speci men Type: URINE SPECIMEN Ordering Facility: [facility] Address: [address] [place] [address] Performed By: #### 2 4356-8 #### [facility] CLIA [id number] [address] [place] [address] [facility] [place] Epithelial cells LM.HPF (Urine sed) [#/Area] Moderate Normal [facility] Comment on above: Order Comment: Speci men Type: URINE SPECIMEN Ordering Facility: [facility] Address: [address] [place] [address] Performed By: #### 2 4356-8 #### [facility] CLIA [id number] [address] [place] [address] [facility] Glucose Test strip (U) [Mass/Vol] Negative Normal Negative [facility] Comment on above: Order Comment: Speci men Type: URINE SPECIMEN Ordering Facility: [facility] Address: [address] [place] [address] Performed By: #### 2 4356-8 #### [facility] CLIA [id number] [address] [place] [address] [facility] [place] Hemoglobin Ql (U) Negative Normal Negative [facility] Comment on above: Order Comment: Speci men Type: URINE SPECIMEN Ordering Facility: [facility] Address: [address] [place] [address] Performed By: #### 2 4356-8 #### [facility] CLIA [id number] [address] [place] [address] [facility] Ketones Ql (U) 2+ Abnormal Negative [facility] Comment on above: Order Comment: Speci men Type: URINE SPECIMEN Ordering Facility: [facility] Address: [address] [place] [address] Performed By: #### 2 4356-8 #### [facility] CLIA [id number] [address] [place] [address] [facility] [place] Leukocyte esterase Test strip Ql (U) Negative Normal Negative [facility] Comment on above: Order Comment: Speci men Type: URINE SPECIMEN Ordering Facility: [facility] Address: [address] [place] [address] Performed By: #### 2 4356-8 #### [facility] CLIA [id number] [address] [place] [address] [place] Nitrite Ql (U) Negative Normal Negative [facility] Comment on above: Order Comment: Speci men Type: URINE SPECIMEN Ordering Facility: [facility] Address: [address] [place] [address] Performed By: #### 2 4356-8 #### [facility] CLIA [id number] [address] [place] [address] [place] pH (U) 7.0 [pH] Normal 5.0-8.0 [facility] Comment on above: Order Comment: Speci men Type: URINE SPECIMEN Ordering Facility: [facility] Address: [address] [place] [address] Performed By: #### 2 4356-8 #### [facility] CLIA [id number] [address] [place] [address] [facility] [place] Protein (U) [Mass/Vol] Negative Normal Negative [facility] Comment on above: Order Comment: Speci men Type: URINE SPECIMEN Ordering Facility: [facility] Address: [address] [place] [address] Performed By: #### 2 4356-8 #### [facility] CLIA [id number] [address] [place] [address] [place] RBC LM.HPF (Urine sed) [#/Area] 0-3 /HPF Normal 0-3 /HPF [facility] Comment on above: Order Comment: Speci men Type: URINE SPECIMEN Ordering Facility: [facility] Address: [address] [place] [address] Performed By: #### 2 4356-8 #### [facility] CLIA [id number] [address] Specific gravity (U) [Rel density] 1.020 Normal 1.005-1.030 [facility] Comment on above: Order Comment: Speci men Type: URINE SPECIMEN Ordering Facility: [facility] Address: [address] [place] [address] Performed By: #### 2 4356-8 #### [facility] CLIA [id number] [address] [place] Urobilinogen Ql (U) 0.2 EU/dL Normal 0.2-1.0 EU/dL [facility] Comment on above: Order Comment: Speci men Type: URINE SPECIMEN Ordering Facility: [facility] Address: [address] [place] [address] Performed By: #### 2 4356-8 #### [facility] CLIA [id number] [address] [place] WBC LM.HPF (Urine sed) [#/Area] 0-5 /HPF Normal 0-5 /HPF [facility] Comment on above: Order Comment: Speci men Type: URINE SPECIMEN Ordering Facility: [facility] Address: [address] [place] [address] Performed By: #### 2 4356-8 #### [facility] CLIA [id number] [address] [place] Basophil percentageOrdered B y: iGn Guadalupe on 03-02-2023 Potassium [Moles/Vol] 3.7 mmol/L 3.5-5.1 [facility] Absolute lymphocyte countOrd ered By: Gin Guadalupe on 02-15-2023 Lymphocytes Auto (Unsp spec) [#/Vol] 3.57 10*3/uL 0.83-4.51 [facility] Basophil percentageOrdered B y: Gin Guadalupe on 02-15-2023 Basophils/100 WBC (Bld) 0.7 % 0-1 [facility] Bilirubin [Mass/Vol] 0.80 mg/dL 0.20-1.00 [facility] Comment on above: For patients on eltr ombopag therapy, use of Dimension Bloomer TBIL is not recommended. Chloride [Moles/Vol] 104 mmol/L 98-107 [facility] Eosinophils/100 WBC (Bld) 4.0 % 0-5 [facility] Glucose [Mass/Vol] 135 mg/dL 74-106 [facility] Comment on above: Fasting Glucose resu lt greater than or equal to 126 mg/dL suggests DIABETES MELLITUS per A.D.A. criteria. Neutrophils (Bld) [#/Vol] 5.2 10*3/uL 2.0-7.7 [facility] Neutrophils/100 WBC (Bld) 52.0 % 47-70 [facility] Potassium [Moles/Vol] 3.3 mmol/L 3.5-5.1 [facility] Protein [Mass/Vol] 7.3 g/dL 6.4-8.2 [facility] Sodium [Moles/Vol] 136 mmol/L 136-145 [facility] WBC (Bld) [#/Vol] 9.9 10*3/uL 4.4-11.0 [facility] Blood erythrocytes count (nu mber/volume)Ordered By: Gin Guadalupe on 02-15-2023 RBC (Bld) [#/Vol] 4.99 10*6/uL 4.2-5.4 [facility] Blood hemoglobin measurement (mass/volume)Ordered By: Gin Guadalupe on 02-15-2023 Hemoglobin (Bld) [Mass/Vol] 14.7 g/dL 12.0-15.0 [facility] Blood lymphocytes/100 leukoc ytesOrdered By: Gin Guadalupe on 02-15-2023 Lymphocytes/100 WBC (Bld) 35.9 % 19-41 [facility] Blood monocytes/100 leukocyt esOrdered By: Gin Guadalupe on 02-15-2023 Monocytes/100 WBC (Bld) 6.9 % 0-10 [facility] Blood platelet mean volumeOr dered By: Gin Guadalupe on 02-15-2023 Platelet mean volume (Bld) [Entitic vol] 10.1 fL 6.2-12.0 [facility] Determination of erythrocyte mean corpuscular volume (MCV)Ordered By: Gin Guadalupe on 02-15-2023 MCV (RBC) [Entitic vol] 87.4 fL 81-99 [facility] Hematocrit Auto (Bld) [Volum e fraction]Ordered By: Gin Guadalupe on 02-15-2023 Hematocrit (Bld) [Volume fraction] 43.6 % 37-47 [facility] Laboratory - Chemistry and C hemistry - challengeOrdered By: Gin Guadalupe on 02-15-2023 ALP [Catalytic activity/Vol] 70 U/L 45-117 [facility] ALT [Catalytic activity/Vol] 31 U/L 13-56 [facility] CO2 [Moles/Vol] 26.0 mmol/L 21.0-32.0 [facility] Globulin (S) [Mass/Vol] 3.5 g/dL 2.2-4.2 [facility] Urea nitrogen/Creatinine [Mass ratio] 12.3 mg/mg 10-20 [facility] Laboratory - Hematology and Cell countsOrdered By: Gin Guadalupe on 02-15-2023 Erythrocyte distribution width (RBC) [Entitic vol] 41.1 fL 35.1-43.9 [facility] Erythrocyte distribution width (RBC) [Ratio] 13.0 % 11.6-14.6 [facility] Immature granulocytes/100 WBC (Bld) 0.500 % 0.0-0.9 [facility] Comment on above: IG% - Immature Granu locytes (promyelocytes, myelocytes and metamyelocytes) > 1% indicates that a LEFT SHIFT is Present. MCH (RBC) [Entitic mass] 29.5 pg 27.0-32.0 [facility] Nucleated RBC/100 WBC (Bld) [Ratio] 0 % 0-5 [facility] MCHC Auto (RBC) [Mass/Vol]Or dered By: Gin Guadalupe on 02-15-2023 MCHC (RBC) [Mass/Vol] 33.7 g/dL 32-36 [facility] No Panel InformationOrdered By: Gin Guadalupe on 02-15-2023 Estimated GFR (MDRD) Amer 85 mL/min >60 [facility] Comment on above: GFR Calc Estimated GFR (MDRD) Non-Af Amer 71 mL/min >60 [facility] Comment on above: Non- GFR Calc Thyroid Stimulating Hormone (TSH) 0.91 uIU/mL 0.358-3.74 [facility] Platelets bldOrdered By: Lalito Guadalupe on 02-15-2023 Platelets (Bld) [#/Vol] 329 10*3/uL 150-450 [facility] Serum or plasma albumin madyson urement (mass/volume)Ordered By: Gin Guadalupe on 02-15-2023 Albumin [Mass/Vol] 3.8 g/dL 3.2-5.0 [facility] Serum or plasma albumin/glob ulin mass ratioOrdered By: Gin Guadalupe on 02-15-2023 Albumin/Globulin [Mass ratio] 1.1 {ratio} 0.9-2.4 [facility] Serum or plasma calcium madyson urement (mass/volume)Ordered By: Gin Guadalupe on 02-15-2023 Calcium [Mass/Vol] 9.3 mg/dL 8.5-10.1 [facility] Serum or plasma creatinine m easurement (mass/volume)Ordered By: Gin Guadalupe on 02-15-2023 Creatinine [Mass/Vol] 0.90 mg/dL 0.55-1.02 [facility] Comment on above: The validity of the calculated GFR & GFRAA in patients over 70 years has not been determined. Clinical correlation is essential. Serum or plasma urea nitroge n measurement (mass/volume)Ordered By: Gin Guadalupe on 02-15-2023 Urea nitrogen [Mass/Vol] 11 mg/dL 7-18 [facility] Thin prep Papanicolaou smear with manual screeningOrdered By: Gin Guadalupe on 02-15-2023 Thin prep Papanicolaou smear with manual screening 24 U/L 15-37 [facility] Thin prep Papanicolaou smear with manual screening 6 5-15 [facility] Thin prep Papanicolaou smear with manual screening 6.8 mg/L NO RANGE EST. [facility] Whole blood hemoglobin A1c/t otal hemoglobin ratio (mass fraction)Ordered By: Gin Guadalupe on 02-15-2023 HbA1c (Bld) [Mass fraction] 7.5 % 3.8-5.6 [facility] Comment on above: Normal < 5.7 % Predi abetic 5.7 - 6.4 % Diabetic >or= 6.5 % Please note range changes. Basophil percentageOrdered B y: Dr. Majano on 02-02-2023 Cholesterol [Mass/Vol] 182 mg/dL <200 [facility] Comment on above: <200 mg/dL Desirable 200-240 mg/dL Borderline >240 mg/dL High Risk Triglyceride [Mass/Vol] 166 mg/dL <199 [facility] Comment on above: The drugs N-Acetylcy steine and Metamizole may falsely depress this assay.Serum Triglycerides Reference Interval Normal <150 mg/dL Borderline high 150 - 199 mg/dL High 200 - 499 mg/dL Very High > or = 500 mg/dL Laboratory - Chemistry and C hemistry - challengeOrdered By: Dr. Majano on 02-02-2023 Free T4 [Mass/Vol] 1.11 ng/dL 0.76-1.46 [facility] No Panel InformationOrdered By: Dr. Majano on 02-02-2023 Follicle Stimulating Hormone 15.5 mIU/mL [facility] Comment on above: NORMAL REFERENCE RAN GES FEMALE FOLLICULAR 2.3 - 12.6 mIU/mL MID-CYCLE PEAK 5.2 - 17.5 mIU/mL LUTEAL 1.7 - 12.9 mIU/mL POST-MENOPAUSAL ON MHT 5.9 - 72.8 mIU/mL NOT ON MHT 12.7 - 132.2 mlU/mL MALE 0.7 - 10.8 mIU/mL Luteinizing Hormone 7.5 mIU/mL [facility] Comment on above: NORMAL REFERENCE RAN GES FEMALE FOLLICULAR 1.9 - 26.2 mIU/mL MID-CYCLE PEAK 22.8 - 76.1 mIU/mL LUTEAL 0.6 - 16.6 mIU/mL POST-MENOPAUSAL ON MHT 1.1 - 52.4 mIU/mL NOT ON MHT 8.6 - 61.8 mIU/mL MALE 1.2 - 10.6 mIU/mL Thyroid Stimulating Hormone (TSH) 0.86 uIU/mL 0.358-3.74 [facility] Vitamin D 25-Hydroxy 34.8 ng/mL [facility] Comment on above: Vitamin D 25(OH) Sta tus Range Deficiency <20 ng/mL (50nmol/L) Insufficiency 20 - 30 ng/mL (50 - 75 nmol/L) Sufficiency 30 - 100 ng/mL (75 - 250 nmol/L) Toxicity >100 ng/mL (>250 nmol/L) Serum or plasma cholesterol in HDL measurement (mass/volume)Ordered By: Dr. Majano on 02-02-2023 Cholesterol in HDL [Mass/Vol] 31 mg/dL >40 [facility] Comment on above: The drugs N-Acetylcy steine and Metamizole may falsely depress this assay. Reference Range HDL <40 mg/dL Low HDL Cholesterol HDL >or= 60 mg/dL High HDL Cholesterol Serum or plasma cholesterol in VLDL measurement (mass/volume)Ordered By: Dr. Majano on 02-02-2023 Cholesterol in VLDL [Mass/Vol] 33 mg/dL 5-40 [facility] Serum or plasma low density lipoprotein (LDL) cholesterol measurement (mass/volume)Ordered By: Dr. Majano on 02-02-2023 Cholesterol in LDL [Mass/Vol] 118 mg/dL 0-130 [facility] Cervical or vagninal specime n microscopic examination by cytology stain (reported asOrdered By: Dr. Majano on 01-18-2023 Cytology report Cyto stain Doc (Cvx/Vag) Comment . [facility] Comment on above: The Pap smear is a s creening test designed to aid in thedetection of premalignant and malignant conditions of theuterine cervix. It is not a diagnostic procedure andshould not be used as the sole means of detecting cervicalcancer. Both false-positive and false-negative reports dooccur. Detection in cervical specim en of any of human papilloma virus (HPV) 16, 18, 31, 33,Ordered By: Dr. Majano on 01-18-2023 HPV 16+18+31+33+35+39+45+51 +52+56+58+59+66+68 DNA Probe+sig amp Ql (Cvx) Negative Negative [facility] Comment on above: This nucleic acid am plification test detects fourteen high-risk HPV types (16,18,31,33,35,39,45,51,52,56,58,59,66,68)without differentiation. Laboratory - CytologyOrdered By: Dr. Majano on 01-18-2023 Crusher Plant Operator Cyto stain Nom (Cvx/Vag) [ID] Comment . [facility] Comment on above: Scotty Haney totechnologist (ASCP) Laboratory - Miscellaneous t estsOrdered By: Dr. Majano on 01-18-2023 Service comment (Unsp spec) [Interp] Comment . [facility] Comment on above: This liquid based Th inPrep(R) pap test was screened withthe use of an image guided system. Service comment (Unsp spec) [Interp] . . [facility] Liquid-based cerv Pap + CT/G C by DIVINA w reflex to high-risk HPV for ASCUSOrdered By: Dr. Majano on 01-18-2023 Cytology report Cyto stain.thin prep Doc (Cvx/Vag) Comment . [facility] Comment on above: Criteria not met, HP V Genotype not performed.Performed at: - [facility] [id number] Director: Zuleika Hickey MD, Phone: [phone] at: = - [facility] [id number] Director: Zuleika Hickey MD, Phone: [phone] No Panel InformationOrdered By: Dr. Majano on 01-18-2023 Pathology report final diagnosis Narrative Comment . [facility] Comment on above: NEGATIVE FOR INTRAEP ITHELIAL LESION OR MALIGNANCY.PREDOMINANCE OF COCCOBACILLI CONSISTENT WITH SHIFT IN VAGINAL ELIZABETH ISPRESENT. Absolute lymphocyte counton 01-31-2022 Lymphocytes Auto (Unsp spec) [#/Vol] 3.57 10*3/uL 0.83-4.51 [facility] Work Phone: Basophil percentageon 2021 Basophils/100 WBC (Bld) 0.6 % 0-1 [facility] Work Phone: Bilirubin [Mass/Vol] 0.50 mg/dL 0.20-1.00 [facility] Work Phone: Comment on above: For patients on eltr ombopag therapy, use of Dimension Bloomer TBIL is not recommended. Chloride [Moles/Vol] 101 mmol/L 98-107 [facility]: [phone] Eosinophils/100 WBC (Bld) 2.6 % 0-5 [facility] Work Phone: [phone] Glucose [Mass/Vol] 106 mg/dL 74-106 [facility] Work Phone: [phone] Comment on above: Fasting Glucose resu lt from 100 to 125 mg/dL suggests IMPAIRED HOMEOSTASIS per A.D.A. criteria. Neutrophils (Bld) [#/Vol] 7.2 10*3/uL 2.0-7.7 [facility] Work Phone: [phone] Neutrophils/100 WBC (Bld) 58.8 % 47-70 [facility] Work Phone: [phone] Potassium [Moles/Vol] 3.6 mmol/L 3.5-5.1 [facility] Work Phone: [phone] Protein [Mass/Vol] 7.5 g/dL 6.4-8.2 [facility] Work Phone: [phone] Sodium [Moles/Vol] 136 mmol/L 136-145 [facility] Work Phone: [phone] WBC (Bld) [#/Vol] 12.3 10*3/uL 4.4-11.0 [facility] Work Phone: Blood erythrocytes count (nu mber/volume)on 01-31-2022 RBC (Bld) [#/Vol] 4.91 10*6/uL 4.2-5.4 [facility] Work Phone: Blood hemoglobin measurement (mass/volume)on 01-31-2022 Hemoglobin (Bld) [Mass/Vol] 14.9 g/dL 12.0-15.0 [facility] Work Phone: [phone] Blood lymphocytes/100 leukoc yteson 01-31-2022 Lymphocytes/100 WBC (Bld) 29.1 % 19-41 [facility] Work Phone: Blood monocytes/100 leukocyt eson 01-31-2022 Monocytes/100 WBC (Bld) 8.2 % 0-10 [facility] Work Phone: Blood platelet mean volumeon 01-31-2022 Platelet mean volume (Bld) [Entitic vol] 9.6 fL 6.2-12.0 [facility] Work Phone: Determination of erythrocyte mean corpuscular volume (MCV)on 01-31-2022 MCV (RBC) [Entitic vol] 88.2 fL 81-99 [facility] Work Phone: Hematocrit Auto (Bld) [Volum e fraction]on 01-31-2022 Hematocrit (Bld) [Volume fraction] 43.3 % 37-47 [facility] Work Phone: Laboratory - Chemistry and C hemistry - challengeon 01-31-2022 ALP [Catalytic activity/Vol] 66 U/L 45-117 [facility] Work Phone: ALT [Catalytic activity/Vol] 41 U/L 13-56 [facility] Work Phone: CO2 [Moles/Vol] 29.0 mmol/L 21.0-32.0 [facility] Work Phone: Globulin (S) [Mass/Vol] 3.7 g/dL 2.2-4.2 [facility] Work Phone: Urea nitrogen/Creatinine [Mass ratio] 11.2 mg/mg 10-20 [facility] Work Phone: Laboratory - Hematology and Cell countson 01-31-2022 Erythrocyte distribution width (RBC) [Entitic vol] 43.4 fL 35.1-43.9 [facility] Work Phone: Erythrocyte distribution width (RBC) [Ratio] 13.3 % 11.6-14.6 [facility] Work Phone: Immature granulocytes/100 WBC (Bld) 0.700 % 0.0-0.9 [facility] Work Phone: Comment on above: IG% - Immature Granu locytes (promyelocytes, myelocytes and metamyelocytes) > 1% indicates that a LEFT SHIFT is Present. MCH (RBC) [Entitic mass] 30.3 pg 27.0-32.0 [facility] Work Phone: Nucleated RBC/100 WBC (Bld) [Ratio] 0 % 0-5 [facility] Work Phone: MCHC Auto (RBC) [Mass/Vol]on 01-31-2022 MCHC (RBC) [Mass/Vol] 34.4 g/dL 32-36 [facility] Work Phone: No Panel Informationon 01-31 Estimated GFR (MDRD) Amer 86 mL/min >60 [facility] Work Phone: Comment on above: GFR Calc Estimated GFR (MDRD) Non-Af Amer 71 mL/min >60 [facility] Work Phone: Comment on above: Non- GFR Calc Thyroid Stimulating Hormone (TSH) 0.86 uIU/mL 0.358-3.74 [facility] Work Phone: Vitamin D 25-Hydroxy 49.0 ng/mL [facility] Work Phone: Comment on above: Vitamin D 25(OH) Sta tus Range Deficiency <20 ng/mL (50nmol/L) Insufficiency 20 - 30 ng/mL (50 - 75 nmol/L) Sufficiency 30 - 100 ng/mL (75 - 250 nmol/L) Toxicity >100 ng/mL (>250 nmol/L) Platelets bldon 01-31-2022 Platelets (Bld) [#/Vol] 365 10*3/uL 150-450 [facility] Work Phone: Serum or plasma albumin madyson urement (mass/volume)on 01-31-2022 Albumin [Mass/Vol] 3.8 g/dL 3.2-5.0 [facility] Work Phone: Serum or plasma albumin/glob ulin mass ratioon 01-31-2022 Albumin/Globulin [Mass ratio] 1.0 {ratio} 0.9-2.4 [facility] Work Phone: Serum or plasma calcium madyson urement (mass/volume)on 01-31-2022 Calcium [Mass/Vol] 8.8 mg/dL 8.5-10.1 [facility] Work Phone: Serum or plasma creatinine m easurement (mass/volume)on 01-31-2022 Creatinine [Mass/Vol] 0.89 mg/dL 0.55-1.02 [facility] Work Phone: Comment on above: The validity of the calculated GFR & GFRAA in patients over 70 years has not been determined. Clinical correlation is essential. Serum or plasma urea nitroge n measurement (mass/volume)on 01-31-2022 Urea nitrogen [Mass/Vol] 10 mg/dL 7-18 [facility] Work Phone: Thin prep Papanicolaou smear with manual screeningon 01-31-2022 Thin prep Papanicolaou smear with manual screening 24 U/L 15-37 [facility] Work Phone: Thin prep Papanicolaou smear with manual screening 6 5-15 [facility] Work Phone: Laboratory - Microbiology an d Antimicrobial susceptibilityon 12-28-2021 SARS-CoV-2 (COVID-19) RNA DIVINA+probe Ql (Unsp spec) Not detected Not Detect [facility] Work Phone: Comment on above: Normal Reference Ran ge: Not DetectedMethod:(RT-PCR) real-time reverse transcriptase PCRLuminex ROBBIN Instrument*The Food and Drug Administration (FDA) has issued an Emergency Use Authorization (EAU) for the CitiVox SARS-CoV-2 Assay for the rapid detection of the virus that causes COVID-19. This test has been validated, but the FDAs independent review of this validation is pending.*Negative results do not preclude infection and should not be used as the sole basis for treatment or patient management. Optimum specimen types and timing for peak viral levels during infections caused by SARS-CoV-2 have not been determined. Collection of multiple specimens from the same patient may be necessary to detect the virus. The possibility of a false negative result should be considered if the patient has clinical presentation or has had recent exposure. No Panel Informationon 12-28 Influenza Types A,B Direct FA ([facility]) [facility] Work Phone: ED NOTEon 05-24-2019 ED NOTE HNO ID: [id number] Author: Gin GrahamRn) TRESSA Merritt Service: Emergency Medicine Author Type: Registered Nurse Type: ED Notes Filed: 05/24/2019 11:00 AM Note Text: Patient Call Back Information ? How are you doing ? better ? Did we appropriately manage your pain? Yes ? Did you understand your discharge instructions? Yes ? Did you get your prescriptions filled? Yes ? Were you able to make a follow-up appointment with your physician? No ? Were you comfortable during your stay here? Yes ? Did a member of the ER nursing team round on you during your visit? Yes ? You will receive a patient satisfaction survey in the mail in the nest 2 weeks, please take the time to fill out the survey as your input from your ER visit is very important to us. Yes ? Can we do anything else to help you? No [facility] ED NOTE HNO ID: [id number] Author: Nora Hua RN Service: Emergency Medicine Author Type: Registered Nurse Type: ED Notes Filed: 05/24/2019 12:33 AM Note Text: Reviewed dc orders with pt, scripts x 3 reviewed. Pt verbalized understanding. Denies any further needs, encouraged pt to f/u with pmd next week. Pt advised no driving for 6 hours d/t meds received. Pt ambulatory with steady gait for dc home per family. [facility] ED NOTE HNO ID: [id number] Author: Nora Hua RN Service: Emergency Medicine Author Type: Registered Nurse Type: ED Notes Filed: 05/23/2019 11:56 PM Note Text: Patient informed: the name of medication, why we are giving it, possible side effects, what they may expect to feel, and was offered a chance to ask questions, prior to the administration of benadryl, pepcid, prednisone [facility] ED NOTE HNO ID: [id number] Author: Nora (Rn) TRESSA Hua Service: Emergency Medicine Author Type: Registered Nurse Type: ED Notes Filed: 05/24/2019 12:10 AM Note Text: Pt to ED with c/o my feet have been itching for past 6 months, and my hands have been itching for at least 6 wk, my scalp also itches. pt denies any rash, no new exposures. Has history of similar issues. [facility] ED PROV NOTEon 05-24-2019 ED PROV NOTE HNO ID: [id number] Author: Carolina Santana MD Service: Emergency Medicine Author Type: Physician Type: ED Provider Notes Filed: 05/24/2019 12:04 AM Note Text: ED Provider Note Patient Name: Yohana Castro SERVICE DATE: 05/23/19 History Patient presents with: Pruritus Yohana Castro is a 48 year old female with history of pruritis who presents with Pruritus. Patient took triamcinolone cream prior to arrival. - Symptoms began chronic. - Severity: moderate - Timing: constant - Quality: Itching - Pruritus is exacerbated by scratching - Pruritus is not exacerbated by movement. - Symptoms are associated with difficulty sleeping. - Symptoms are not associated with rash. - Improved by nothing. - Not improved by steroid cream Long-standing history of this used to get allergy shots but was able to go off of them for a while now she's getting back into more itching especially in her feet hands and scalp. No known new exposures she typically is very careful about avoiding any topical agents that are new or different. PAST MEDICAL HISTORY Diagnosis Date - Allergic rhinitis, cause unspecified Allergic rhinitis - Hypertension - Irritable bowel syndrome - Other specified pruritic conditions PAST SURGICAL HISTORY Procedure Laterality Date - DELIVERY ONLY , low cervical - REMOVAL GALLBLADDER No family history on file. Social History Tobacco Use - Smoking status: Never Smoker - Smokeless tobacco: Never Used Substance and Sexual Activity - Alcohol use: Not Currently - Drug use: Never - Sexual activity: Not on file ALLERGIES Allergen Reactions - Erythromycin Shortness of Breath - Penicillins Shortness of Breath - Sulfa (Sulfonamide * Shortness of Breath Review of Systems Constitutional: Negative for chills and fever. HENT: Negative for sore throat and trouble swallowing. Respiratory: Negative for cough and shortness of breath. Gastrointestinal: Negative for abdominal pain, nausea and vomiting. Skin: Negative for color change, pallor, rash and wound. Allergic/Immunologic: Positive for environmental allergies. Negative for food allergies and immunocompromised state. Neurological: Negative for weakness and numbness. Psychiatric/Behaviora l: Negative for confusion. The patient is not nervous/anxious. Physical Exam BP 165/110 Pulse 98 Temp (Src) 97.7 (Temporal) Resp 16 Ht 5' 4 (1.63m) Wt 238 lb (108.0kg) SpO2 96% BMI 40.83 kg/(m2). O2 Therapy: Room Air Physical Exam Constitutional: She is oriented to person, place, and time. She appears well-developed and well-nourished. No distress. HENT: Head: Normocephalic and atraumatic. Right Ear: External ear normal. Left Ear: External ear normal. Eyes: EOM are normal. Right eye exhibits no discharge. Left eye exhibits no discharge. No scleral icterus. Neck: Normal range of motion. Neck supple. No JVD present. No tracheal deviation present. Cardiovascular: Normal rate and regular rhythm. Pulmonary/Chest: Effort normal and breath sounds normal. No respiratory distress. Musculoskeletal: Normal range of motion. She exhibits no edema, tenderness or deformity. Neurological: She is alert and oriented to person, place, and time. No sensory deficit. She exhibits normal muscle tone. Skin: Skin is warm and dry. Capillary refill takes less than 2 seconds. No rash noted. She is not diaphoretic. No erythema. No pallor. Psychiatric: She has a normal mood and affect. Her behavior is normal. Judgment and thought content normal. Nursing note and vitals reviewed. Diagnostic Testing ED Labs Ordered and Reviewed - No data to display Procedures ED Course / Clinical Impression Clinical Impressions as of May 24 0001 Pruritus MDM / Disposition / Plan No rashes identified no new triggers identified she's going to follow-up with her scenario writer will place her on H1 darshana H2 darshana and systemic corticosteroid taper. Disposition The patient was discharged. Counseled patient and child/grandchild regarding suspected diagnosis. As well as the need for follow-up. Discharged home with verbal and written instructions. They were instructed to return as needed for persistent or worsening symptoms or any new concerns. Condition at disposition is stable. SIGNATURE: MD Carolina Hagen MD 05/24/19 0004 [facility] Vital Signs Date Time Vital Sign Value Performing Clinician Angeles parker 12-26-2024 14:10-0500 Body height 162.56 cm Clemencia Collins DO Work Phone: [facility] 12-26-2024 14:10-0500 Body mass index (BMI) [Ratio] 41.8 kg/m2 Clemencia Collins DO Work Phone: [phone] [place] [address] 12-26-2024 14:10-0500 Body temperature 98.3 [degF] Clemencia Collins DO Work Phone: [phone] [place] [address] 12-26-2024 14:10-0500 Body weight 110.39 kg Clemencia Collnis DO Work Phone: [phone] [place] [address] 12-26-2024 14:10-0500 Diastolic blood pressure 81 mm[Hg] Clemencia Collins DO Work Phone: [phone] [place] [address] 12-26-2024 14:10-0500 Heart rate 93 /min Clemencia Collins DO Work Phone: [phone] [place] [address] 12-26-2024 14:10-0500 Respiratory rate 18 /min Clemencia Collins DO Work Phone: [phone] [place] [address] 12-26-2024 14:10-0500 SaO2% (BldA) [Mass fraction] 96 % Clemencia Collins DO Work Phone: [phone] [place] [address] 12-26-2024 14:10-0500 Systolic blood pressure 123 mm[Hg] Clemencia Collins DO Work Phone: [phone] [place] [address] 01-18-2023 15:50-0400 Body height 162.[address] Ghazala Keyes Work Phone: [facility] 01-18-2023 15:50-0400 Body mass index (BMI) [Ratio] 42.6 kg/m2 Dr. Ghazala Keyes Work Phone: [facility] 01-18-2023 15:50-0400 Body weight 112.[address] Ghazala Keyes Work Phone: [facility] 01-18-2023 15:50-0400 Diastolic blood pressure 83 mm[Hg] Dr. Ghazala Keyes Work Phone: [facility] 01-18-2023 15:50-0400 Systolic blood pressure 117 mm[Hg] Dr. Ghazala Keyes Work Phone: [facility] 01-06-2022 08:41-0500 Body height 162.[address] Ghazala Keyes Work Phone: [facility] Work Phone: 01-06-2022 08:41-0500 Body mass index (BMI) [Ratio] 42 kg/m2 Dr. Ghazala Keyes Work Phone: [facility] Work Phone: 01-06-2022 08:41-0500 Body weight 111.[address] Ghazala Keyes Work Phone: [facility] Work Phone: Encounters Encounter Date Encounter Type Care Provider Facility Start: 04-16-2025 Encounter for other preprocedural examination Yannick Bourne [facility] Start: 04-01-2025 End: 04-01-2025 ambulatory Yannick Bourne Facility:[facility] Start: 02-27-2025 End: 02-27-2025 ambulatory Clemencia Guadalupe [facility] Facility:[facility] Start: 01-13-2025 End: 01-13-2025 ambulatory Clemencia Collins DO Work Phone: [facility] [facility] Work Phone: Start: 01-13-2025 End: 01-13-2025 Patient encounter procedure Santa MAN -Outpatient Breast Imaging Work Phone: Start: 01-13-2025 End: 01-13-2025 ambulatory Clemencia Reillyer VSC Facility:[facility] Start: 12-26-2024 End: 12-26-[address] Yannick Bourne MD -[facility] Work Phone: Start: 12-26-2024 End: 12-26-2024 ambulatory Clemencia Guadalupe [facility] Facility:[facility] Start: 08-20-2024 ambulatory Shannon Reynoso lity:[facility] Start: 08-07-2024 End: 08-07-2024 ambulatory Clemencia Guadalupe [facility] Facility:[facility] Start: 05-20-2024 End: 05-20-2024 Emergency department patient visit GHAZALA KEYES Facility:[facility] Start: 03-02-2023 End: 03-02-[address] Ghazala Keyes Work Phone: [facility] Work Phone: Start: 03-02-2023 End: 03-02-[address] Ghazala Keyes Work Phone: [facility] Start: 02-15-2023 End: 02-15-[address] Ghazala Keyes Work Phone: [facility] Work Phone: Start: 02-15-2023 End: 02-15-[address] Ghazala Keyes Work Phone: [facility] Start: 02-02-2023 End: 02-02-[address] Ghazala Keyes Work Phone: [facility] Work Phone: Start: 02-02-2023 End: 02-02-[address] [facility] Start: 01-18-2023 End: 01-18-[address] Ghazala Keyes Work Phone: [facility] Work Phone: Start: 01-18-2023 End: 01-18-[address] Ghazala Keyes Work Phone: [facility], Specimen Start: 01-18-2023 End: 01-18-[address] Ghazala Keyes Work Phone: [facility] Start: 08-01-2022 End: 08-01-2022 ambulatory [facility] Work Phone: Start: 08-01-2022 End: 08-01-2022 Patient encounter procedure [facility]-Laboratory, [facility] Start: 01-31-2022 End: 01-31-[address] Ghazala Keyes Work Phone: [facility]-Laboratory, Phy Office 3rd Flr Start: 01-06-2022 End: 01-06-[address] Ghazala Keyes Work Phone: [facility] Start: 12-28-2021 End: 12-28-[address] Ghazala Keyes Work Phone: [facility]-Pulmonary Services/Neurology Procedures Date Procedure Procedure Detail Performing Clinician Start: 01-13-2025 Screening mammography Rajinder Guadalupe DO Work Phone: Start: 12-28-2021 Influenza Types A,B Direct FA (LASHELL) Dr. Ghazala Keyes Work Phone: Start: 12-28-2021 End: 12-28-2021 Respiratory syncytial virus antigen assay Dr. Ghazala Keyes Work Phone: Plan of Treatment Date Care Activity Detail Author Start: 05-07-2025 ambulatory Ambulatory Facility:[facility] Start: 01-18-2023 Liquid based cervica l cytology screening [facility] Follitropin and Lutr opin panel [Units/volume] - Serum or Plasma [facility] Lipid 1996 panel - S andrew or Plasma [facility] MG Breast - bilatera l Screening [facility] Path report.final Dx Spec [facility] T4 free measurement [facility] Thyroid stimulating hormone measurement [facility] Vitamin D, 25-hydrox y measurement [facility] Payers Date Payer Category Payer Self-pay [id number] 2004 Unknown [id number] Unknown [id number] [id number] [id number] Unknown [id number] 2.16.8 [id number] Unknown [id number] 2.16.8 [id number] Unknown [id number] 2.16.8 [id number] Unknown [id number] 2.16.8 [id number] Unknown [id number] 2.16.8 [id number] Unknown [id number] 2.16.8 [id number] Social History Date Type Detail Facility Start: 01-06-2022 End: 01-18-2023 Tobacco smoking status NYIS Unknown if ever smoked [facility] Start: 1970 Sex Assigned At Female [facility] Start: 12-26-2024 Tobacco smoking stat us [facility] Never smoked tobacco (finding) [facility] Start: 01-21-2025 Sex Female (finding) [facility] Evaluation note 12-26-2024 Note Date & Type Note Facility 12-26-2024 Evaluation note Diagnosis Onset Date Resolution Macromastia acute November 1:38pm [facility] Work Phone: Clinical Note 01-18-2023 Note Date & Type Note Facility 01-18-2023 Note [facility] Pap Smear Specimen Adequacy January 18, 2023 5:05pm Comment . Satisfactory for evaluation. No endocervical component is identified. Comment on above: Satisfactory for tammy luation. No endocervical component is identified. Clinical Note 01-18-2023 Note Date & Type Note Facility 01-18-2023 Note [facility] Pap Smear Specimen Adequacy January 18, 2023 5:05pm Comment . Satisfactory for evaluation. No endocervical component is identified. Comment on above: Satisfactory for tammy luation. No endocervical component is identified. Clinical Note 01-18-2023 Note Date & Type Note Facility 01-18-2023 Note [facility] Pap Smear Specimen Adequacy January 18, 2023 5:05pm Comment . Satisfactory for evaluation. No endocervical component is identified. Comment on above: Satisfactory for tammy luation. No endocervical component is identified. Evaluation note Note Date & Type Note Facility Evaluation note No assessment information availa ble [facility] Work Phone: Evaluation note Note Date & Type Note Facility Evaluation note Diagnosis Onset Date Encounter for routine gyneco logical examination noneactive [facility] Work Phone: Reason for referral (narrative) Note Date & Type Note Facility Reason for referral (narrative) No reason for referral information available [facility] Work Phone: Summary Purpose Family History No Family History Records Found Relationship Condition Age at Onset Recorded Date/T sonny mother Hypertension Unknown Cerebrovascular accident (CVA) Unknown father Hypertension Unknown Advance Directives No Advanced Directives Records FoundNo Advanced Directives Records FoundNo Advanced Directives Records Found Chief Complaint and Reason for Visit Chief Complaint 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) Reason for Visit Encounter for routin e gynecological examination Chief Complaint 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) INT LABS Reason for Visit Encounter for routin e gynecological examination Chief Complaint 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 Goals (unrecognized section and content) Goals may be documented in a n alternate sectionGoals may be documented in an alternate sectionGoals may be documented in an alternate sectionGoals may be documented in an alternate sectionGoals may be documented in an alternate sectionGoals may be documented in an alternate sectionGoals may be documented in an alternate section Care Teams (unrecognized sec tion and content) Team Status: Active Member Role Status Dates Dr. Ghazala Keyes MD Family Provider Active Dr. Ghazala Keyes MD Primary Care Provider Active Team Status: Inactive Member Role Status Dates Dr. Ghazala Keyes MD Primary Care Provider, Referring Provider Active Dr. Tammy Sears DO Attending Provider Activ e Team Status: Inactive Member Role Status Dates Dr. Ghazala Keyes MD Primary Care Provider Active Dr. Tammy Sears DO Attending Provider, Refe rring Provider Active Team Status: Inactive Member Role Status Dates Dr. Ghazala Keyes MD Primary Care Provider Active Gin Guadalupe DO Attending Provider, Referring Pr ovider Active Team Status: Active Member Role Status Dates Dr. Ghazala Keyes MD Family Provider Active Gin Guadalupe DO Primary Care Provider Active Team Status: Inactive Member Role Status Dates Gin Guadalupe DO Primary Care Provider, Attending Provider Active Team Status: Active Member Role Status Dates Clemencia Guadalupe VSC, DO Primary Care Provider Active Team Status: Inactive Member Role Status Dates Clemencia Guadalupe VSC, DO Primary Care Provider Active Start: December 26, 2024 End: December 26, 2024 Clemencia Guadalupe VSC, DO Referring Provider Active Start: December 26, 2024 End: December 26, 2024 Dr. Yannick Bourne MD Attending Provider Active Start: December 26, 2024 End: December 26, 2024 Team Status: Inactive Member Role Status Dates Clemencia GARCIA, DO Primary Care Provider Active Start: January 13, 2025 End: January 13, 2025 Santa Burk NP, CHECK PILOT-C Attending Provider Active Start: January 13, 2025 End: January 13, 2025 Santa Burk NP, NP-C Referring Provider Active Start: January 13, 2025 End: January 13, 2025 FOR RECORDS PERTAINING TO PATIENTS WHO ARE OR HAVE BEEN ENROLLED IN A CHEMICAL DEPENDENCY/SUBSTANCEABUSE PROGRAM, SOME INFORMATION MAY BE OMITTED. This clinical summary was aggregated from multiple sources. Caution should be exercised in using it in the provision of clinical care. This summary normalizes information from multiple sources, and as a consequence, information in this document may materially change the coding, format and clinical context of patient data. In addition, data may be omitted in some cases. CLINICAL DECISIONS SHOULD BE BASED ON THE PRIMARY CLINICAL RECORDS. [employer] [facility] provides no warranty or guarantee of the accuracy or completeness of information in this document.
[2025-05-08 05:43] VITALS: BP 125/74; PULSE 105; RESP 16; TEMP 36.9; O2SAT 93
[2025-05-08 06:04] LABS: Hematocrit 36.7 % (37-47); Hemoglobin 12.4 g/dL (12.0-15.0); Immature Granulocytes Count 0.040 X10^3/uL (0.0-0.0); Mean Corp Hgb Conc 33.8 g/dL (32-36); Mean Corpuscular Volume 87.8 fL (81-99); Mean Platelet Vol. 9.6 fl (6.2-12.0); NRBC Flagged by Analyzer 0 % (0-5); Platelet Count 253 K/mm3 (150-450); RBC Distribution Width CV 13.7 % (11.6-14.6); RBC Distribution Width SD 43.8 fl (35.1-43.9); Red Blood Count 4.18 M/mm3 (4.2-5.4); White Blood Count 10.6 K/mm3 (4.4-11.0)
[2025-05-08 06:51] LABS: Anion Gap 11 (5-15); BUN 12 mg/dL (4-19); BUN/Creat Ratio 12.8 RATIO (10-20); Calcium,Total 8.5 mg/dL (7.6-11.0); Carbon Dioxide 24.6 mmol/L (21.0-32.0); Chloride 101 mmol/L (98-108); Estimated Creatinine Clearance 82.19 ml/min (50-250); Glucose 115 mg/dL (70-99); Potassium 3.5 mmol/L (3.3-5.1)
--- NOTE | 2025-05-08 07:10 | DS.PCM_ITS ---
Providers Date of Admission: 05/07/25 Primary Care Physician: Clemencia Guadalupe [facility], DO Reason For Visit: Breast reduction with possible free Diagnosis Discharge Diagnosis (1) Macromastia: Status: Acute Code(s): N62 - Hypertrophy of breast Plan: Photos obtained We have ordered a screening mammogram and patient in agreement I talked the patient extensively about the risks of surgery, including bleeding, asymmetry (we discussed existing asymmetries), nipple loss, need for free nipple grafts, infection, damage to surrounding structures, surgical site dehiscence and wound formation, need for wound care, need for repeat operations, failure to obtain the desired result, DVT/PE, and the risks of anesthesia including , including stroke (from low blood pressure/ischemia or clot). The benefits and alternatives of this surgery were also discussed. All of their questions were answered, and they agreed to proceed with surgery. Plan According to Schnur scale I could remove 750 gm per side. I would plan superior medial pedicle v Inferior pedicle with Boland pattern skin reduction Caprini score is 4 (As long as she would stop taking contraceptive 4 weeks before surgery, otherwise it is 5) Plan to submit to insurance for surgery as she meets the criteria for macromastia Plan from 27 Feb 2025: Mammogram up-to-date, BI-RADS 1. Patient would like to go forward with breast reduction. I talked to the patient extensively about the risks of surgery, including bleeding, infection, damage to surrounding structures, poor scaring, nipple necrosis, possible need for free nipple grafts, alterations in nipple sensation (possibly permanent), nipple inversion, surgical site dehiscence and wound formation, fat necrosis, fluid collections, need for wound care, need for repeat operations, failure to obtain the desired result, DVT/PE, and the risks of anesthesia including , including stroke (from low blood pressure/ischemia or clot). The benefits and alternatives of this surgery were also discussed. All of their questions were answered, and they agreed to proceed with surgery. INTERVAL H&P PLAN, DATE OF SURGERY: We will proceed with surgery today. We further discussed again the above-noted risks, benefits and alteratives. She would like to proceed. Plan superior medial pedicle v Inferior Pedicle with boland pattern skin reduction, possible free nipple grafts Medications at Discharge Home Medications lisinopril 5 mg tablet 5 mg PO QDAY 01/16/18 potassium chloride 10 mEq tablet,extended release (Klor-Con) 10 meq PO QDAY 01/16/18 fluoxetine 40 mg capsule (Prozac) 40 mg PO DAILY 01/06/22 levonorgestrel 20.4 mcg/24 hr (up to 8 yrs) 52 mg intrauterine device (Liletta) 1 device intrauterine ONCE 01/06/22 bupropion HCl 150 mg 24 hr tablet, extended release 150 mg PO QDAY 12/26/24 tirzepatide 2.5 mg/0.5 mL subcutaneous pen injector (Mounjaro) 2.5 mg subcut FR 12/26/24 lansoprazole 15 mg capsule,delayed release (Prevacid 24Hr) 15 mg PO DAILY 03/31/25 valacyclovir 500 mg tablet (Valtrex) 500 mg PO BID PRN cold sores 03/31/25 hyoscyamine sulfate 0.125 mg tablet 0.125 mg PO Q12H PRN PRN dyspepsia 05/05/25 clindamycin HCl 150 mg capsule (Cleocin HCl) 150 mg PO TID 5 days #15 caps 05/07/25 ondansetron 4 mg disintegrating tablet 4 mg PO Q8H PRN nausea and vomiting #10 tabs 05/07/25 oxycodone 5 mg tablet 5 mg PO Q4H PRN pain 5 days #20 tabs 05/07/25 Hospital Course Operations - (Breast reduction) Summary of Care Provided Hospital Course: Patient doing well today postop day 1. She had Boland pattern inferior pedicle breast reduction with lateral liposuction yesterday. Pain controlled. Drains with appropriate output. No shortness of breath. She feels comfortable managing the drains at home. She is voided appropriately postop and has been up in a chair. She will walk with nursing this morning before discharge. 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 Appropriate bruising. Drains are serosanguineous and stripped well with appropriate output. The nipples are warm and viable bilaterally with good capillary refill and normal color. Weight / BMI Weight Weight: 238 lb 1.588 oz Body Mass Index (BMI) 40.8 ABG / Lab / Microbiology Data 05/08/25 05:22 05/08/25 05:22 Laboratory: Laboratory Results - last 24 hr 05/07/25 07:05: POC Glucose 119 H 05/07/25 10:03: POC Glucose 133 H 05/08/25 05:22: WBC 10.6, RBC 4.18 L, Hgb 12.4, Hct 36.7 L, MCV 87.8, MCH 29.7, MCHC 33.8, RDW Std Deviation 43.8, RDW Coeff of Edison 13.7, Plt Count 253, MPV 9.6, Immature Gran % (Auto) 0.400, Neut % (Auto) 58.5, Lymph % (Auto) 25.8, [place] % (Auto) 11.8 H, Eos % (Auto) 3.1, Baso % (Auto) 0.4, Absolute Neuts (auto) 6.2, Absolute Lymphs (auto) 2.73, Nucleated RBC % 0, Sodium 137, Potassium 3.5, Chloride 101, Carbon Dioxide 24.6, Anion Gap 11, BUN 12, Creatinine 0.95, Estim Creat Clear Calc 82.19, Est GFR (MDRD) Non-Af 72, BUN/Creatinine Ratio 12.8, G lucose 115 H, Calcium 8.5 D/C Instructions DC O2, CPAP, BIPAP Needs Home O2 Discharge instructions: No Meaningful Use Info Meaningful Use Meaningful Use Diagnoses (Choose all that apply): None applicable Ischemic Stroke Statin Dosing Therapy Reference: STATIN DOSE THERAPY REFERENCE: * Patients > 75 years receive moderate or high dose statin therapy. * Patients 75 years or YOUNGER should receive HIGH intensity statin dose unless contraindicated. You will be required to document reason for non-treatment if statin daily dose does not meet guidelines. HIGH DOSE STATIN THERAPY DAILY Atorvastatin > than or = to 40 mg Rosuvastatin > than or = to 20 mg Amlodipine + Atorvastatin > than or = to 2.5/40 mg Ezetimibe + Simvastatin 10/80 mg Simvastatin 80mg Discharge Plan Admission Admit Date/Time: 05/07/25 07:14 Attending Provider: Yannick Bourne Primary Care Provider: Clemencia Guadalupe [facility] Instructions Additional Instructions / Restrictions: Operations Performed: Breast reduction Instructions for My Care at Home or Healthcare Facility The following instructions will help you know what to expect in the days following surgery. These are general instructions. Your surgeon and therapist may give you special instructions, which vary to some degree based on your specific procedure -- follow those as directed. Do not, however, hesitate to call if you have any questions or concerns. Splint Care/Dressing Care/Wound Care * Dressings - You may have a dressing over the operative site. * You can wear the loose bra with the pads for comfort * OK to shower with occlusive dressing over the drain on Monday. Do not submerge under water until cleared by Dr. Bourne * If the dressing feels too tight after you get home, it is ok to gently pull on the dressing to stretch it out/loosen it. * Avoid smoking or other tobacco products. Smoking tobacco impairs wound healing and increases the risks of post-operative complications. * Tape over your incisions (if present) will fall off on its own ? Activities * For the first 4 weeks after surgery, try to balance your activity, allowing time for rest. * Avoid lifting, pushing, or pulling anything over 5 pounds. * Do not drive or operate heavy machinery within 24 hrs of surgery or while taking narcotic pain medication.? * No pressure/laying on the breasts Drain Care:? A drain has been placed during surgery in order to prevent the accumulation of fluids beneath your skin. The drain decreases the chance of infection and helps in the healing process. The nursing staff will instruct you and your family on the care and recording of drainage. ? * You may shower with them. Let soap and water run down over drains, rinse and pat dry with clean towel. Reinforce with gauze or ABD pad around drain site if leaking occurs around the drain; this is not unusual.?Hold drains in your hand or attach to lanyard (or string) around your neck with safety pin so they do not hang from your body (the tension on your skin may cause them to be pulled out) while your are showering. * The drains are attached to you with suture. If your drain(s) falls out accidentally, place a clean piece of gauze over the drain site with tape and discard your drain.? * If your drain bulb loses suction or your drain has migrated out from the drain site, do not attempt to push the drain back into your skin. Cover the area with dry gauze. You may be asked by your surgeon to place a piece of semi occlusive dressing (tegaderm) over the drain site to keep the site clean and drain in place until you are seen in the office.? * When you are wearing clothes, attach drains to your clothes in a place where there is minimal/no tension on the insertion site to your skin.? * You should empty the drainage and record the output at least 2 times per day, or when the drainage fills the bulb almost long term. Please keep daily amounts of drainage separate for each drain for a 24-hour period (for example drain #1 put out 40 mL for 24 hours).? * Strip your drains daily as shown to you by your nurse prior to discharge to avoid them from becoming clogged:? * Wash your hands. * Strip tubing three times a day (more often if there are a lot of blood clots). * Grasp tubing close to body with one hand and pull toward body. With other hand grasp tubing below the first hand. Using an alcohol swab, pinch tubing tightly, sliding fingers down tubing, away from body. * Repeat 2 or 3 times. Be sure drainage is flowing into bulbs. * Measure the drainage in the bulb by either using the calibrations on the bulb or by emptying the Bulb into small measuring container 3 times a day (more often if there is a lot of drainage or they feel heavy) Open small lid on top of bulb. Pour drainage into container. Squeeze bulb and hold while replacing small lid. Bulb should be collapsed to be effective. Pin bulb to clothing so the weight will not pull on the insertion site. * Measure drainage and record amount each time you empty the bulbs. Hold container at eye level to read the numbers on the side of the container. Read the numbers in the ml column. Record amount of drainage on chart. * Record your drain output daily and bring this record with you to your next follow up appointment. Drains will typically be removed in the clinic when output is less than 30 mL/24 hours per drain over 2 consecutive days. For drain removal appointment, please call your doctors office directly to schedule.? Location: Drain #1 Drain #2 Drain #3 Drain #4 0 0 0 AM Noon PM AM Noon PM AM Noon PM AM Noon PM Date: Total (daily) 0 0 0 AM Noon PM AM Noon PM AM Noon PM AM Noon PM Date: Total (daily) 0 0 0 AM Noon PM AM Noon PM AM Noon PM AM Noon PM Date: Total (daily) 0 0 0 AM Noon PM AM Noon PM AM Noon PM AM Noon PM Date: Total (daily) 0 0 0 AM Noon PM AM Noon PM AM Noon PM AM Noon PM Date: Total (daily) 0 0 0 AM Noon PM AM Noon PM AM Noon PM AM Noon PM Date: Total (daily) 0 0 0 AM Noon PM AM Noon PM AM Noon PM AM Noon PM Date: Total (daily) 0 0 0 AM Noon PM AM Noon PM AM Noon PM AM Noon PM Date: Total (daily) 0 0 0 AM Noon PM AM Noon PM AM Noon PM AM Noon PM Date: Total (daily) 0 0 0 AM Noon PM AM Noon PM AM Noon PM AM Noon PM Date: Total (daily) 0 0 0 AM Noon PM AM Noon PM AM Noon PM AM Noon PM Date: Total (daily) 0 0 0 AM Noon PM AM Noon PM AM Noon PM AM Noon PM Date: Total (daily) 0 0 0 AM Noon PM AM Noon PM AM Noon PM AM Noon PM Date: Total (daily) 0 0 0 AM Noon PM AM Noon PM AM Noon PM AM Noon PM Date: Total (daily) 0 0 0 AM Noon PM AM Noon PM AM Noon PM AM Noon PM Date: Total (daily) 0 0 0 Pain Control/Medications * If you received an anesthetic block, your hand or arm may be numb for several hours. You will be discharged to home with medications, including an oral pain medication (analgesic). Rest and elevation are still one of the most important factors for pain control. Take your pain medication as needed, but do not wait for the pain to become out of control. * For severe pain, you may take prescription pain medication as directed, but please note that this may also contain Tylenol (e.g. Percocet). Do not take more than 4000mg of Tylenol (acetaminophen) from all sources daily.? * Pain medication may cause some lethargy, nausea, and or constipation. You should not drive/operate dangerous machinery while taking these medications. If these or other symptoms become significantly problematic, please your surgeon's office. * If prescribed oral antibiotics (Keflex, Clindamycin, or others), please take prescription for full duration as instructed. You should not have any pills remaining once completed (refills are written for your convenience should the course need to be extended, but generally they are not required). Diet (what I can eat): Resume normal diet Follow up * You will be seen (most likely) 1 to 2 weeks after surgery depending on the procedure. Follow-up appointment reminders:? (A list of any scheduled appointments is at the end of this document)? At your earliest convenience, please call [phone] to confirm/schedule a follow-up appointment with me in clinic. When to call your surgeon: * If any signs of surgical site infection develop: redness, pus, pain, increased swelling or foul odor at the incision site, fever, cold and clammy skin, or confusion. * Consistent temperature above 101?F (38.3?C). * The affected area gets swollen or much more painful. * You have excessive bleeding from surgical site (soaking through). If you experience difficulty breathing and/or shortness of breath, seek immediate medical attention. If experiencing any of the above complications or if you have any questions, call [phone] Discharge Orders/Prescriptions Prescriptions: New oxycodone 5 mg tablet 5 mg PO Q4H PRN (Reason: pain) 5 Days Qty: 20 0RF clindamycin HCl [Cleocin HCl] 150 mg capsule 150 mg PO TID 5 Days Qty: 15 0RF ondansetron 4 mg tablet,disintegrating 4 mg PO Q8H PRN (Reason: nausea and vomiting) Qty: 10 0RF No Action lisinopril 5 mg tablet 5 mg PO QDAY potassium chloride [Klor-Con 10] 10 mEq tablet extended release 10 meq PO QDAY fluoxetine [Prozac] 40 mg capsule 40 mg PO DAILY Liletta 20.1 mcg/24 hrs (6 yrs) 52 mg intrauterine device 1 device intrauterine ONCE Rx Instructions: as a single dose bupropion HCl 150 mg tablet extended release 24 hr 150 mg PO QDAY Mounjaro 2.5 mg/0.5 mL pen injector 2.5 mg subcut FR valacyclovir [Valtrex] 500 mg tablet 500 mg PO BID PRN (Reason: cold sores) lansoprazole [Prevacid 24Hr] 15 mg capsule,delayed release(DR/EC) 15 mg PO DAILY hyoscyamine sulfate 0.125 mg tablet 0.125 mg PO Q12H PRN PRN (Reason: dyspepsia) Referrals / Follow Up: Clemencia Guadalupe, DO [Primary Care Provider] - Disposition Disposition (needs filled in before D/C Order can be placed): Home, Self Care
[2025-05-08 09:05] VITALS: BP 128/84; PULSE 104; RESP 16; TEMP 36.8; O2SAT 93
--- NOTE | 2025-05-08 09:47 | CASEMGMT ---
TRESSA CM into pt room, pt sitting up in chair reviewing instruction sheet. Pt states she feels comfortable with the drain care and emptying and recording. Pt states the nurse will review her dressing changes when her arrives. Pt is indep in room, she denies any homegoing needs.
[2025-05-08 11:00] VITALS: BP 139/80; PULSE 104; RESP 16; TEMP 36.6; O2SAT 93
--- NOTE | 2025-05-08 11:40 | WOUNDNOTE ---
Had been in to see patient this am with Dr Bourne. reviewed drain care and dressings with patient. pt aware to record JENNIFER drainage and bring forms to follow up appt. Pt denies further questions or concerns at this time.
== END 2025-05-08 11:33 | disposition home or self-care (01) ==
LOC: SDC 13:02 → MS3 13:02
PROVIDERS: Student in an Organized Health Care Education/Training Program; Admitting Provider Surgery Plastic and Reconstructive Surgery; PCP Family Medicine; Referring Provider Surgery Plastic and Reconstructive Surgery; Visit Provider Surgery Plastic and Reconstructive Surgery
PROC: 0H0U0ZZ Alteration of Left Breast, Open Approach (ICD-10-PCS; CPT 19318; principal; 2025-05-07 07:45)
DX: N62 Hypertrophy of breast (principal); E11.9 Type 2 diabetes mellitus without complications; N64.4 Mastodynia; M54.2 Cervicalgia; I10 Essential (primary) hypertension; Z79.85 Long-term (current) use of injectable non-insulin antidiabetic drugs; M54.6 Pain in thoracic spine; Z79.899 Other long term (current) drug therapy
CPT/HCPCS: 19318; 00402; 36415; 80048; 80076; 81025; 82962; 83036; 85025; 85027; 85610; 85730; 88305; 93005; 94668; 96372; 99221; G0378; J2405

== ENCOUNTER 2025-05-26 20:12 | Inpatient (IN) | payer BC, SELFPAY ==
[2025-05-26] VITALS (7 sets, daily range): BP systolic 132–141; BP diastolic 70–90; PULSE 73–100; RESP 13–19; TEMP 36.8–37.5; O2SAT 97–99; BMI 40.8; BMI 40.6
--- NOTE | 2025-05-26 20:44 | EX.PCM.CON.S ---
Assessment & Plan Assessment/Plan (1) Status post breast reduction: PLAN: Given redness, will admit overnight for cellulitis. IV Clindamycin and ciprofloxacin Lovenox and SCDs for DVT pxx. WTD dressings BID to the right and left breast wounds . Patient happy with the plan HPI Consult Data Date of Consult: 05/26/25 HPI Narrative HPI Narrative: ANEUDY CASTRO is a 54 YO FM who presents with malaise and breast redness after breast reduction on 07 May 2025. Reports that it started 2 days ago. Tonight in the ED, WBC 10 K. No fever, stable VS. PFSH Medical History Depression Anxiety Diabetes Arthritis Anemia Easy bruising History of diverticulitis History of IBS Non-smoker Shortness of breath on exertion Contraceptive management GERD (gastroesophageal reflux disease) Vitamin D deficiency Hyperhidrosis Hypertension Home Medications ?Medication ?Instructions ?Recorded ?Last Taken ?Type lisinopril 5 mg tablet 5 mg PO QDAY 01/16/18 05/06/25 18:00 History potassium chloride 10 mEq 10 meq PO QDAY 01/16/18 05/06/25 18:00 History tablet,extended release (Klor-Con) fluoxetine 40 mg capsule (Prozac) 40 mg PO DAILY 01/06/22 05/06/25 16:00 History levonorgestrel 20.4 mcg/24 hr (up 1 device intrauterine ONCE 01/06/22 Unknown History to 8 yrs) 52 mg intrauterine device (Liletta) bupropion HCl 150 mg 24 hr tablet, 150 mg PO QDAY 12/26/24 05/06/25 06:00 History extended release tirzepatide 2.5 mg/0.5 mL 2.5 mg subcut FR 12/26/24 04/18/25 History subcutaneous pen injector (Mounjaro) lansoprazole 15 mg capsule,delayed 15 mg PO DAILY 03/31/25 05/06/25 18:00 History release (Prevacid 24Hr) valacyclovir 500 mg tablet 500 mg PO BID PRN cold sores 03/31/25 Unknown History (Valtrex) hyoscyamine sulfate 0.125 mg tablet 0.125 mg PO Q12H PRN PRN dyspepsia 05/05/25 05/06/25 18:00 History clindamycin HCl 150 mg capsule 150 mg PO TID 5 days #15 caps 05/07/25 Unknown Rx (Cleocin HCl) ondansetron 4 mg disintegrating 4 mg PO Q8H PRN nausea and 05/07/25 Unknown Rx tablet vomiting #10 tabs Allergy/AdvReac Type Severity Reaction Status Date / Time erythromycin base Allergy Anaphylaxis Verified 05/26/25 20:15 penicillin V Allergy unknown Verified 05/26/25 20:15 Sulfa (Sulfonamide Allergy Anaphylaxis Verified 05/26/25 20:15 Antibiotics) Family History Mother Hypertension CVA (cerebral vascular accident) Father Hypertension Surgical History Hx of LASIK S/P cholecystectomy H/O: Social History (Updated 05/26/25 @ 21:39 by Liv Wilkins) household members: spouse housing: house Smoking Status: Never smoker alcohol intake: never substance use type: does not use caffeine: Yes what type of physical activity do you participate in: none seatbelt use: always do you feel safe at home: Yes 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, DENIES EDIBLES, DENIES MARIJUANA USE, NO FAMILY HISTORY OF BLOOD CLOTS Physical Exam Narrative 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 There is some redness along the inferior incisions bilaterally. No induration. No drainage. Lab / Micro Data 05/26/25 20:51 05/26/25 20:51 Charges/Coding Procedures Integumentary [id number]: [id number] Global Visit
[2025-05-26 21:05] LABS: Hematocrit 38.4 % (37-47); Hemoglobin 13.0 g/dL (12.0-15.0); Immature Granulocytes Count 0.060 X10^3/uL (0.0-0.0); Mean Corp Hgb Conc 33.9 g/dL (32-36); Mean Corpuscular Volume 86.3 fL (81-99); Mean Platelet Vol. 9.5 fl (6.2-12.0); NRBC Flagged by Analyzer 0 % (0-5); Platelet Count 395 K/mm3 (150-450); RBC Distribution Width CV 13.4 % (11.6-14.6); RBC Distribution Width SD 41.6 fl (35.1-43.9); Red Blood Count 4.45 M/mm3 (4.2-5.4); White Blood Count 9.4 K/mm3 (4.4-11.0)
[2025-05-26 21:32] LABS: AST(SGOT) 23 U/L (<=31); Alanine Aminotransfer ALT/SGPT 16 U/L (<=34); Albumin, Serum 3.9 g/dL (3.5-5.0); Alkaline Phosphatase 72 U/L (35-104); Anion Gap 13 (5-15); BUN 12 mg/dL (4-19); BUN/Creat Ratio 14.2 RATIO (10-20); Calcium,Total 9.2 mg/dL (7.6-11.0); Carbon Dioxide 24.6 mmol/L (21.0-32.0); Chloride 105 mmol/L (98-108); Estimated Creatinine Clearance 94.03 ml/min (50-250); Globulin 2.6 g/dL (2.2-4.2); Glucose 135 mg/dL (70-99); Potassium 4.0 mmol/L (3.3-5.1)
--- NOTE | 2025-05-26 21:56 | EDS_ITS ---
HPI History of Present Illness Chief Complaint: General Illness Informant: patient and spouse/S.O. Narrative Narrative: Sent in by her plastic surgeon for evaluation. 19-day postop breast reduction. Last couple days not feeling well had fever and chills at home. No cough. No urinary symptoms. No vomiting or diarrhea. Allergies to penicillin and sulfa with breathing issues. Temp checked this evening 99. PFSH PFSH Medical History Depression Anxiety Diabetes Arthritis Anemia Easy bruising History of diverticulitis History of IBS Non-smoker Shortness of breath on exertion Contraceptive management GERD (gastroesophageal reflux disease) Vitamin D deficiency Hyperhidrosis Hypertension Home Medications ?Medication ?Instructions ?Recorded ?Last Taken ?Type lisinopril 5 mg tablet 5 mg PO QDAY bp 01/16/1806/23 18:00 History potassium chloride 10 mEq 10 meq PO QDAY supplement 05/06/25 18:00 History tablet,extended release (Klor-Con) fluoxetine 40 mg capsule (Prozac) 40 mg PO DAILY mood 01/06/22 05/06/25 16:00 History levonorgestrel 20.4 mcg/24 hr (up 1 device intrauterin e ONCE child 01/06/22 Unknown History to 8 yrs) 52 mg intrauterine device (Liletta) bupropion HCl 150 mg 24 hr tablet, 150 mg PO QDAY mood 12/26/24 05/06/25 06:00 History extended release tirzepatide 2.5 mg/0.5 mL 2.5 mg subcut FR weight lose 12/26/24 04/18/25 History subcutaneous pen injector (Mounjaro) Held on 05/26/25. Instructions: MD Ordered lansoprazole 15 mg capsule,delayed 15 mg PO DAILY gerd 03/31/25 05/06/25 18:00 History release (Prevacid 24Hr) valacyclovir 500 mg tablet 500 mg PO BID PRN cold sore s 03/31/25 Unknown History (Valtrex) hyoscyamine sulfate 0.125 mg tablet 0.125 mg PO Q12H P RN PRN dyspepsia 05/05/25 05/06/25 18:00 History Allergy/AdvReac Type Severity Reaction Status Date / Time erythromycin base Allergy Anaphylaxis Verified 05/26/25 20:15 penicillin V Allergy unknown Verified 05/26/25 20:15 Sulfa (Sulfonamide Allergy Anaphylaxis Verified 05/26/25 20:15 Antibiotics) Family History Mother Hypertension CVA (cerebral vascular accident) Father Hypertension Surgical History Hx of LASIK S/P cholecystectomy H/O: Social History household members: spouse housing: house Smoking Status: Never smoker alcohol intake: never substance use type: does not use caffeine: Yes what type of physical activity do you participate in: none seatbelt use: always do you feel safe at home: Yes 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, DENIES EDIBLES, DENIES MARIJUANA USE, NO FAMILY HISTORY OF BLOOD CLOTS ROS ROS ED Constitutional Constitutional ED: Reports chills and fever(s) Cardiovascular Cardiovascular: Denies chest pain Respiratory/Chest Respiratory/Chest: Denies cough or dyspnea Gastrointestinal Gastrointestinal: Denies diarrhea or vomiting Genitourinary Genitourinary ED: Denies dysuria Musculoskeletal Musculoskeletal: Denies none Integumentary Reports rash; Denies wounds Neurologic Neurologic: Denies weakness EXAM Physical Exam Const Vital Signs: 05/26/25 20:15 05/26/25 20:17 05/26/25 21:17 Temperature 99.5 F H 99.5 F H Temperature Source Oral Oral Pulse Rate 91 91 Respiratory Rate 18 18 Respiratory Effort Respiratory Pattern Blood Pressure 136/90 H 136/90 H Blood Pressure Mean 105 105 Pulse Ox 99 99 99 Oxygen Delivery Method Room Air Room Air Room Air 05/26/25 21:17 05/26/25 21:17 05/26/25 21:17 Temperature 99.5 F H Temperature Source Oral Pulse Rate 100 Respiratory Rate 13 16 Respiratory Effort Normal Non-Labored Respiratory Pattern Normal Blood Pressure 132/89 H Blood Pressure Mean 103 Pulse Ox 99 98 Oxygen Delivery Method Room Air Positive well nourished and well developed General Appearance ED: well developed HEENT normocephalic and atraumatic Eyes General Eye ED: Yes normal appearance of both eyes Neck full ROM Chest Wall Chest Narrative: Dr. Bourne present with exam: Breast with incisions more laterally clean, dry intact. Underneath the breasts there were open ulceration with no active drainage. There is some slight erythema inferior right breast. Resp normal respiratory effort and normal air movement Cardio regular rate and regular rhythm GI soft to palpation Extremity normal to inspection and full ROM Neuro oriented x3 Skin Skin Narrative: See above MDM MDM MDM Narrative Medical decision making narrative: Interventions / MDM: Differential diagnosis: Postop cellulitis, status post breast reduction Diagnosis considered but do not suspect: No cough or urinary symptoms for concerns for pneumonia or UTI. My EKG interpretation: N/A Imaging independently reviewed and interpreted by myself: N/A External documents reviewed: N/A Test considered but not ordered:N/A ED course: Nursing protocol initiated labs with blood cultures. White count returned 9.4. Temp 99.5. 1 out of 4 SIRS criteria. Evaluation with surgeon concerns for developing cellulitis. Recommended starting patient on Cipro and clindamycin in the ED. Patient admitted under plastic service. Re-evaluation: stable Disposition discussed with patient/family/significant other: Patient and spouse. Case discussed with consulting clinician: Plastic surgery This note was generated with [employer] dictation software. It may contain incorrect words, spelling, and punctuation that were not noted in checking the note before signing. Lab Data Attestation: I reviewed the patient's lab results. Labs: Laboratory Results - last 24 hr 05/26/25 20:51 WBC 9.4 RBC 4.45 Hgb 13.0 Hct 38.4 MCV 86.3 MCH 29.2 MCHC 33.9 RDW Std Deviation 41.6 RDW Coeff of Edison 13.4 Plt Count 395 MPV 9.5 Immature Gran % (Auto) 0.600 Neut % (Auto) 50.4 Lymph % (Auto) 34.1 [place] % (Auto) 8.9 Eos % (Auto) 5.3 H Baso % (Auto) 0.7 Absolute Neuts (auto) 4.7 Absolute Lymphs (auto) 3.21 Nucleated RBC % 0 Sodium 143 Potassium 4.0 Chloride 105 Carbon Dioxide 24.6 Anion Gap 13 BUN 12 Creatinine 0.83 Estim Creat Clear Calc 94.03 Est GFR (MDRD) Non-Af 84 BUN/Creatinine Ratio 14.2 Glucose 135 H Lactic Acid 1.3 Calcium 9.2 Total Bilirubin 0.50 AST 23 ALT 16 Alkaline Phosphatase 72 Total Protein 6.5 Albumin 3.9 Globulin 2.6 Albumin/Globulin Ratio 1.5 Discharge Plan Dx/Rx/DC Orders Clinical Impression: Status post breast reduction, Postoperative wound cellulitis Disposition Disposition: Acute Care Hospital [facility] Discharge Date/Time: 05/26/25 23:20
[2025-05-26] MEDS: Clindamycin 600 MG/50 ML BAG 100 MG IV (22:03)
[2025-05-27] MEDS: Lactated Ringers 1,000 ML 75 ML IV (00:01)
[2025-05-27] MEDS: 0.9% Saline Lock 10 ML Syringe IV ×2 (02:05→11:06)
[2025-05-27 02:08] VITALS: BP 137/92; PULSE 80; RESP 18; TEMP 36.7; O2SAT 95
[2025-05-27 04:25] VITALS: PULSE 72; RESP 16; O2SAT 94
[2025-05-27 05:07] VITALS: BMI 41.3
[2025-05-27 05:57] VITALS: BP 148/93; PULSE 78; RESP 16; TEMP 36.6; O2SAT 98
[2025-05-27 08:32] VITALS: BP 141/94; PULSE 93; RESP 16; TEMP 36.6; O2SAT 95
[2025-05-27] MEDS: buPROPion (XL) 150 MG TABLET.XL PO (08:48)
--- NOTE | 2025-05-27 10:08 | CASEMGMT ---
Dx:cellulitis LACE:1 6-Clicks:24 Medical record reviewed and patient evaluated for identification of discharge planning needs. Based on this review, at this time criteria are not present to indicate a need for discharge planning. Will remain available to assist with discharge planning needs as identified or requested. Spoke with wound nurse who states pt and reported being able to perform dressing changes to bilat breasts.
--- NOTE | 2025-05-27 10:12 | PCM.PN.SRG ---
Subjective Subjective Patient doing well this morning overall. Reports improved pain in the breast. She did have a diffuse rash on her back and trunk last night with the clindamycin. It was since discontinued and Benadryl was given. No shortness of breath Objective Data Objective Data Vital Signs: Vital Signs Temp Pulse Resp BP Pulse Ox O2 Del Method 97.8 F 93 16 141/94 H 95 Room Air 05/27/25 08:32 05/27/25 08:32 05/27/25 08:32 05/27/25 08:32 05/27/25 08:32 05/27/25 08:32 Oxygen Delivery Method Room Air Weight: 242 lb 0.99 oz Body Mass Index (BMI) 41.3 Intake & Output: Intake and Output for Last 24 Hours 05/25/25 05/26/25 05/27/25 23:59 23:59 23:59 Intake Total 850 / 850 Output Total 700 / 700 Balance 150 / 150 Lab / Micro Data 05/26/25 20:51 05/26/25 20:51 Labs: Laboratory Results - last 24 hr 05/26/25 20:51: WBC 9.4, RBC 4.45, Hgb 13.0, Hct 38.4, MCV 86.3, MCH 29.2, MCHC 33.9, RDW Std Deviation 41.6, RDW Coeff of Edison 13.4, Plt Count 395, MPV 9.5, Immature Gran % (Auto) 0.600, Neut % (Auto) 50.4, Lymph % (Auto) 34.1, [place] % (Auto) 8.9, Eos % (Auto) 5.3 H, Baso % (Auto) 0.7, Absolute Neuts (auto) 4.7, Absolute Lymphs (auto) 3.21, Nucleated RBC % 0, Sodium 143, Potassium 4.0, Chloride 105, Carbon Dioxide 24.6, Anion Gap 13, BUN 12, Creatinine 0.83, Estim Creat Clear Calc 94.03, Est GFR (MDRD) Non-Af 84, BUN/Creatinine Ratio 14.2, Glucose 135 H, Lactic Acid 1.3, Calcium 9.2, Total Bilirubin 0.50, AST 23, ALT 16, Alkaline Phosphatase 72, Total Protein 6.5, Albumin 3.9, Globulin 2.6, Albumin/Globulin Ratio 1.5 Physical Exam Narrative 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 The wounds were debrided with bedside nursing today and packed with wet-to-dry dressings. There is some redness along the inferior incisions bilaterally. No induration. No drainage. Assessment & Plan Assessment/Plan (1) Status post breast reduction: (2) Postoperative wound cellulitis: PLAN: Plan Neuro: Tylenol and Roxicodone for pain Respiratory: Incentive spirometer Cardio: Lisinopril for hypertension Abdomen: MiraLAX for constipation as needed FEN/nutrition: CMP tomorrow, regular diet. Discontinue IV fluids Heme: SCDs and daily Lovenox for DVT prophylaxis Infectious disease: Discontinue clindamycin, continue doxycycline and ciprofloxacin Continued wet-to-dry dressings twice daily Plastics will keep the patient another night Charges/Coding Procedures Integumentary [id number]: [id number] Global Visit
[2025-05-27] MEDS: Lidocaine 1% /Epi 1:100 (20ml) 20 ML Vial INFILT (11:01)
[2025-05-27 14:20] VITALS: BP 130/94; PULSE 95; RESP 16; TEMP 36.9; O2SAT 96
[2025-05-27 20:20] VITALS: BP 132/87; PULSE 86; RESP 16; TEMP 36.8; O2SAT 97
[2025-05-28 02:00] VITALS: BP 125/89; PULSE 82; RESP 16; TEMP 36.4; O2SAT 97
[2025-05-28 05:38] VITALS: BMI 41.0
[2025-05-28 06:33] LABS: AST(SGOT) 16 U/L (<=31); Alanine Aminotransfer ALT/SGPT 13 U/L (<=34); Albumin, Serum 3.7 g/dL (3.5-5.0); Alkaline Phosphatase 70 U/L (35-104); Anion Gap 12 (5-15); BUN 12 mg/dL (4-19); BUN/Creat Ratio 14.7 RATIO (10-20); Calcium,Total 8.6 mg/dL (7.6-11.0); Carbon Dioxide 25.7 mmol/L (21.0-32.0); Chloride 104 mmol/L (98-108); Estimated Creatinine Clearance 95.67 ml/min (50-250); Globulin 2.2 g/dL (2.2-4.2); Glucose 100 mg/dL (70-99); Potassium 3.3 mmol/L (3.3-5.1)
[2025-05-28 08:00] VITALS: BP 137/85; PULSE 70; RESP 16; TEMP 36.9; O2SAT 98
[2025-05-28] MEDS: buPROPion (XL) 150 MG TABLET.XL PO (09:30)
--- NOTE | 2025-05-28 10:49 | PCM.DC.SUM ---
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 Discontinue IV fluids Heme: SCDs and daily Lovenox for DVT prophylaxis Infectious disease: Discontinue clindamycin, continue doxycycline and ciprofloxacin Continued wet-to-dry dressings twice daily Plastics will keep the patient another night Medications at Discharge Home Medications lisinopril 5 mg tablet 5 mg PO QDAY bp 01/16/18 potassium chloride 10 mEq tablet,extended release (Klor-Con) 10 meq PO QDAY supplement 01/16/18 fluoxetine 40 mg capsule (Prozac) 40 mg PO DAILY mood 01/06/22 levonorgestrel 20.4 mcg/24 hr (up to 8 yrs) 52 mg intrauterine device (Liletta) 1 device intrauterine ONCE child 01/06/22 bupropion HCl 150 mg 24 hr tablet, extended release 150 mg PO QDAY mood 12/26/24 tirzepatide 2.5 mg/0.5 mL subcutaneous pen injector (Mounjaro) 2.5 mg subcut FR weight lose 12/26/24 Held on 05/26/25. Instructions: MD Ordered lansoprazole 15 mg capsule,delayed release (Prevacid 24Hr) 15 mg PO DAILY gerd 03/31/25 valacyclovir 500 mg tablet (Valtrex) 500 mg PO BID PRN cold sores 03/31/25 hyoscyamine sulfate 0.125 mg tablet 0.125 mg PO Q12H PRN PRN dyspepsia 05/05/25 ciprofloxacin HCl 500 mg tablet 500 mg PO Q12H 7 days #14 tabs 05/28/25 doxycycline hyclate 100 mg capsule 100 mg PO BID 7 days #14 caps 05/28/25 Hospital Course Summary of Care Provided Hospital Course: Admitted 27 May 2025 for cellulitis of bilateral breasts. Did well as inpatient on antibiotics, accept had reaction (rash) to likely clindamycin. Switched to doxycycline and ciprofloxacin for empiric treatment. Patient started improving HOD 1 and HOD 2 was significantly improved. She was feeling well enough for discharge, had stable VS. 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 Wounds have beefy red granulation tissue at the base. There are no fluid collections/abscesses. There is some redness along the inferior incisions bilaterally. No induration. No drainage. Extremity Extremity Narrative: SCDs on and activated No swelling. Weight / BMI Weight Weight: 240 lb 1.334 oz Body Mass Index (BMI) 41.0 ABG / Lab / Microbiology Data 05/26/25 20:51 05/28/25 05:08 Laboratory: Laboratory Results - last 24 hr 05/28/25 05:08: Sodium 142, Potassium 3.3, Chloride 104, Carbon Dioxide 25.7, Anion Gap 12, BUN 12, Creatinine 0.82, Estim Creat Clear Calc 95.67, Est GFR (MDRD) Non-Af 86, BUN/Creatinine Ratio 14.7, Glucose 100 H, Calcium 8.6, Total Bilirubin 0.52, AST 16, ALT 13, Alkaline Phosphatase 70, Total Protein 5.9, Albumin 3.7, Globulin 2.2, Albumin/Globulin Ratio 1.7 D/C Instructions DC O2, CPAP, BIPAP Needs Home O2 Discharge instructions: Yes Type of respiratory needs?: Oxygen (as needed ) Oxygen frequency: Other (v) Other oxygen liters per minute: 0 Other oxygen frequency: room air DC home with Oxygen: No Meaningful Use Info Meaningful Use Meaningful Use Diagnoses (Choose all that apply): None applicable Discharge Plan Admission Admit Date/Time: 05/26/25 21:55 Attending Provider: Yannick Bourne Primary Care Provider: Clemencia Guadalupe [facility] Discharge Orders/Prescriptions Prescriptions: New doxycycline hyclate 100 mg capsule 100 mg PO BID 7 Days Qty: 14 0RF ciprofloxacin HCl 500 mg tablet 500 mg PO Q12H 7 Days Qty: 14 0RF No Action lisinopril 5 mg tablet 5 mg PO QDAY potassium chloride [Klor-Con 10] 10 mEq tablet extended release 10 meq PO QDAY fluoxetine [Prozac] 40 mg capsule 40 mg PO DAILY Liletta 20.1 mcg/24 hrs (6 yrs) 52 mg intrauterine device 1 device intrauterine ONCE Rx Instructions: as a single dose bupropion HCl 150 mg tablet extended release 24 hr 150 mg PO QDAY Mounjaro 2.5 mg/0.5 mL pen injector 2.5 mg subcut FR valacyclovir [Valtrex] 500 mg tablet 500 mg PO BID PRN (Reason: cold sores) lansoprazole [Prevacid 24Hr] 15 mg capsule,delayed release(DR/EC) 15 mg PO DAILY hyoscyamine sulfate 0.125 mg tablet 0.125 mg PO Q12H PRN PRN (Reason: dyspepsia) Referrals / Follow Up: Clemencia Guadalupe [facility], DO [Primary Care Provider] - Disposition Disposition (needs filled in before D/C Order can be placed): Home, Self Care
--- NOTE | 2025-05-28 12:19 | PHA.DC.MC.R ---
Pharmacy [facility] Counseling Pharmacy Service has performed discharge medication reconciliation and counseling for this patient. 1. CIPROFLOXACIN 500MG PO BID X 7 DAYS 2. DOXYCYCLINE 100MG PO BID X 7 DAYS The patient's discharge medication list was reviewed for discrepancies and discrepancies were resolved. The patient was counseled on the following discharge medications and changes in medications for homegoing were reviewed. The Reason for Use, instructions for use, and potential side effects were reviewed for all new medications. The patient's questions regarding all of their medications were answered. The patient was able to verbally demonstrate an understanding of their discharge medications. Medications at Discharge Home Medications lisinopril 5 mg tablet 5 mg PO QDAY bp 01/16/18 potassium chloride 10 mEq tablet,extended release (Klor-Con) 10 meq PO QDAY supplement 01/16/18 fluoxetine 40 mg capsule (Prozac) 40 mg PO DAILY mood 01/06/22 levonorgestrel 20.4 mcg/24 hr (up to 8 yrs) 52 mg intrauterine device (Liletta) 1 device intrauterine ONCE child 01/06/22 bupropion HCl 150 mg 24 hr tablet, extended release 150 mg PO QDAY mood 12/26/24 tirzepatide 2.5 mg/0.5 mL subcutaneous pen injector (Mounjaro) 2.5 mg subcut FR weight lose 12/26/24 Held on 05/26/25. Instructions: MD Ordered lansoprazole 15 mg capsule,delayed release (Prevacid 24Hr) 15 mg PO DAILY gerd 03/31/25 valacyclovir 500 mg tablet (Valtrex) 500 mg PO BID PRN cold sores 03/31/25 hyoscyamine sulfate 0.125 mg tablet 0.125 mg PO Q12H PRN PRN dyspepsia 05/05/25 ciprofloxacin HCl 500 mg tablet 500 mg PO Q12H 7 days #14 tabs 05/28/25 doxycycline hyclate 100 mg capsule 100 mg PO BID 7 days #14 caps 05/28/25
[2025-05-28 12:40] VITALS: BP 155/70; PULSE 78; RESP 16; TEMP 37.2; O2SAT 98
== END 2025-05-28 13:00 | disposition home or self-care (01) | DRG 580 ==
LOC: ED 22:01 → MS3 22:06
PROVIDERS: Admitting Provider Surgery Plastic and Reconstructive Surgery; Emergency Provider Emergency Medicine; PCP Family Medicine; Visit Provider Surgery Plastic and Reconstructive Surgery
DX: N61.0 Mastitis without abscess (principal); T81.49XA Infection following a procedure, other surgical site, initial encounter; Z68.41 Body mass index [BMI] 40.0-44.9, adult; E11.9 Type 2 diabetes mellitus without complications; I10 Essential (primary) hypertension; F32.A Depression, unspecified; F41.9 Anxiety disorder, unspecified; E66.813 Obesity, class 3; Z79.85 Long-term (current) use of injectable non-insulin antidiabetic drugs; Z79.899 Other long term (current) drug therapy; X58.XXXA Exposure to other specified factors, initial encounter
CPT/HCPCS: 36415; 80053; 83605; 85025; 87040; 94760; 97802; 99284; A4216; J0744

== ENCOUNTER → 2025-06-13 | Outpatient (CLI) | payer BC, SELFPAY ==
--- NOTE | 2025-06-13 11:00 | BRBX_PTH ---
PATIENT: ANEUDY CASTRO LOC: [facility] U#:[id number] AGE/SX: 54/F ROOM: RE06/13/[address]: Dr. Yannick Bourne MD : 1970 BED: DIS: 06/13/2025 SPEC #: [id number] RECD: 06/13/25 13:55 STATUS: LIV MARTHA #: [id number] TERRY: 06/13/25 11:[address]: Yannick Bourne DEPT: SURGICAL PATHOLOGY RECD BY: Gelacio Rodriguez ENTERED: 06/13/25 15:00 SP TYPE: BREAST BX OTHR DR: Clemencia Guadalupe, [facility], DO Tissues: A - Right breast, NOS B - Left breast, NOS C - Left breast, NOS Procedures: Surgery Specimen Level IV HEADER OPERATION: Biopsy right and left breast wounds PRE-OP DIAGNOSIS: Right and left breast wounds TISSUE SUBMITTED: A- Right breast wound biopsy - rule out pyoderma gangrenosum, B- Left breast wound #1 - rule out pyoderma gangrenosum, C- Left breast wound #2 - rule out pyoderma gangrenosum MICROSCOPIC DIAGNOSIS A. Skin, breast, right, punch biopsy: - Ulcer with granulation tissue, acute inflammation, and subepidermal edema - see Comment. B. Skin, breast, left, punch biopsy: - Ulcer with granulation tissue, acute inflammation, subepidermal edema, and occasional multinucleated giant cells with foreign material suggestive of suture material. - see Comment. C. Skin, breast, left, punch biopsy: - Ulcer with granulation tissue, acute inflammation, and subepidermal edema - see Comment. COMMENT: Classic features of pyoderma gangrenosum are not observed. However, some cases of pyoderma gangrenosum can show non-specific ulcerative changes on biopsy, especially if the lesion is not acute. Recommend clinical correlation. MICROSCOPIC DESCRIPTION Slides are reviewed. GROSS DESCRIPTION Received in 3 formalin containers labeled with the patient's name and date of . Designated as: A. Biopsy right breast wound, rule out pyoderma gangrenosum is a 0.4 x 0.3 cm hernandez skin punch, excised to maximum depth of 0.5 cm. The resection margin is inked orange and the specimen is entirely submitted in 1 cassette. B. Left breast biopsy wound #1, rule out pyoderma gangrenosum is a 0.4 x 0.3 cm hernandez skin punch, excised to a maximum depth of 0.6 cm. The resection margin is inked green and the specimen is entirely submitted in 1 cassette. C. Left breast wound biopsy #2, rule out pyoderma gangrenosum is a 0.4 x 0.3 cm slightly irregular, hernandez skin punch excised to a maximum depth of 0.6 cm. The resection margin is inked blue and the specimen is entirely submitted in 1 cassette. Note: Part B container was open at arrival to pathology and devoid of formalin; Part C container was open with approximately half formalin volume. (MS) MS 06/13/2025 CPT:74205a1
== END | disposition home or self-care (01) ==
LOC: LABSPEC 14:23
PROVIDERS: PCP Family Medicine; Referring Provider Surgery Plastic and Reconstructive Surgery; Visit Provider Surgery Plastic and Reconstructive Surgery
DX: S21.001A Unspecified open wound of right breast, initial encounter (principal); S21.002A Unspecified open wound of left breast, initial encounter; X58.XXXA Exposure to other specified factors, initial encounter
CPT/HCPCS: 88305

== ENCOUNTER → 2025-06-23 | Outpatient (CLI) | payer BC, SELFPAY | END | disposition home or self-care (01) | PROVIDERS: PCP Family Medicine; Referring Provider Dermatology; Visit Provider Dermatology | DX: L30.9 Dermatitis, unspecified (principal) | CPT/HCPCS: 87015; 87070; 87075; 87077; 87101; 87116; 87176; 87186; 87205; 87206 ==

== ENCOUNTER → 2025-08-18 | Outpatient (CLI) | payer BC, SELFPAY ==
[2025-08-18 16:28] LABS: Hematocrit 41.1 % (37-47); Hemoglobin 14.5 g/dL (12.0-15.0); Immature Granulocytes Count 0.200 X10^3/uL (0.0-0.0); Mean Corp Hgb Conc 35.3 g/dL (32-36); Mean Corpuscular Volume 83.5 fL (81-99); Mean Platelet Vol. 9.7 fl (6.2-12.0); NRBC Flagged by Analyzer 0 % (0-5); Platelet Count 326 K/mm3 (150-450); RBC Distribution Width CV 13.7 % (11.6-14.6); RBC Distribution Width SD 41.7 fl (35.1-43.9); Red Blood Count 4.92 M/mm3 (4.2-5.4); White Blood Count 15.0 K/mm3 (4.4-11.0)
[2025-08-18 17:23] LABS: Hepatitis B Surface Antigen Nonreactive (Nonreactive); Hepatitis C Antibody Nonreactive (Nonreactive)
[2025-08-18 17:32] LABS: AST(SGOT) 22 U/L (<=31); Alanine Aminotransfer ALT/SGPT 23 U/L (<=34); Albumin, Serum 4.2 g/dL (3.5-5.0); Alkaline Phosphatase 68 U/L (35-104); Bilirubin, Direct 0.24 mg/dL (0.00-0.30); Globulin 2.6 g/dL (2.2-4.2)
[2025-08-22 09:08] LABS: QNTFERON TB Mitogen Value > 10.00 IU/mL (.); QNTFERON TB Nil Value 0.10 IU/mL (.); QNTFERON TB1+ Ag Value 0.12 IU/mL (.); QNTFERON TB2+ Ag Value 0.10 IU/mL (.); QNTIFERON TB Positive Criteria Negative (Negative)
== END | disposition home or self-care (01) ==
LOC: LAB 15:39
PROVIDERS: PCP Family Medicine; Referring Provider Dermatology; Visit Provider Dermatology
DX: L88 Pyoderma gangrenosum (principal); Z79.899 Other long term (current) drug therapy
CPT/HCPCS: 36415; 80076; 85025; 86480; 86704; 86706; 86803; 87070; 87077; 87186; 87205; 87340

== ENCOUNTER 2025-08-19 17:16 | Inpatient (IN) | payer BC, SELFPAY ==
[2025-08-19 17:19] VITALS: BP 136/96; PULSE 112; RESP 18; TEMP 37.1; O2SAT 97; BMI 42.3
--- NOTE | 2025-08-19 17:57 | EDS_ITS ---
HPI History of Present Illness Chief Complaint: Wound Check Detail of Chief Complaint: Wound infection Informant: patient and family Narrative Narrative: Patient presents to the emergency department with concern for wound infection to her left breast. Patient states that she had biopsies of her breast done yesterday as she has history of pyoderma gangrenosum. She had a breast reduction surgery on May 07. She has had chronic steroid treatment. She is a diabetic. Yesterday she had biopsies again by dermatology and this morning she noticed increased redness and swelling to her left breast. She had fever at home up to 101.6. She said chills. Discussed with material preparation worker and was advised to come to the emergency department for evaluation. [facility] Medical History (Updated 08/19/25 @ 20:[address] Samina Vazquez, ) Pyoderma gangrenosum Depression Anxiety Diabetes Arthritis Anemia Easy bruising History of diverticulitis History of IBS Non-smoker Shortness of breath on exertion Contraceptive management GERD (gastroesophageal reflux disease) Vitamin D deficiency Hyperhidrosis Hypertension Home Medications Medication Instructions Recorded Last Taken Type lisinopril 5 mg tablet 5 mg PO QDAY bp 01/16/1806/23 18:00 History potassium chloride 10 mEq 10 meq PO QDAY supplement 05/06/25 18:00 History tablet,extended release (Klor-Con) fluoxetine 40 mg capsule (Prozac) 40 mg PO DAILY mood 01/06/22 05/06/25 16:00 History levonorgestrel 20.4 mcg/24 hr (up 1 device intrauterin e ONCE child 01/06/22 Unknown History to 8 yrs) 52 mg intrauterine device (Liletta) bupropion HCl 150 mg 24 hr tablet, 150 mg PO QDAY mood 12/26/24 05/06/25 06:00 History extended release tirzepatide 2.5 mg/0.5 mL 2.5 mg subcut FR weight lose 12/26/24 04/18/25 History subcutaneous pen injector (Mounjaro) Held on 05/26/25. Instructions: MD Ordered lansoprazole 15 mg capsule,delayed 15 mg PO DAILY gerd 03/31/25 05/06/25 18:00 History release (Prevacid 24Hr) valacyclovir 500 mg tablet 500 mg PO BID PRN cold sore s 03/31/25 Unknown History (Valtrex) hyoscyamine sulfate 0.125 mg tablet 0.125 mg PO Q12H P RN PRN dyspepsia 05/05/25 05/06/25 18:00 History doxycycline hyclate 100 mg capsule 100 mg PO BID 7 day s #14 caps 05/28/25 Unknown Rx lisinopril 20 mg tablet 20 mg PO QDAY 06/20/25 Unkno wn History potassium chloride 20 mEq 20 meq PO QDAY 06/20/25 Unkn own History tablet,extended release prednisone 20 mg tablet mg PO 07/11/25 Unknown Histo ry Allergy/AdvReac Type Severity Reaction Status Date / Time clindamycin Allergy Hives Verified 08/19/25 17:18 erythromycin base Allergy Anaphylaxis Verified 08/19/25 17:18 penicillin V Allergy unknown Verified 08/19/25 17:18 Sulfa (Sulfonamide Allergy Anaphylaxis Verified 08/19/25 17:18 Antibiotics) Family History Mother Hypertension CVA (cerebral vascular accident) Father Hypertension Surgical History Hx of LASIK S/P cholecystectomy H/O: Social History household members: spouse housing: house Smoking Status: Never smoker alcohol intake: never substance use type: does not use caffeine: Yes what type of physical activity do you participate in: none seatbelt use: always do you feel safe at home: Yes 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, DENIES EDIBLES, DENIES MARIJUANA USE, NO FAMILY HISTORY OF BLOOD CLOTS ROS ROS ED Review of Systems ROS Unobtainable: other Constitutional Constitutional ED: Reports fever(s) and lethargy; Denies chills, sweats or weight loss Eyes Eyes: Denies blurry vision, change in vision or diplopia ENT ENT ED: Denies rhinorrhea or sore throat Cardiovascular Cardiovascular: Reports chest pain and racing heartbeat; Denies orthopnea Respiratory/Chest Respiratory/Chest: Reports dyspnea and dyspnea on exertion; Denies cough, orthopnea or sputum Gastrointestinal Gastrointestinal: Denies abdominal pain, diarrhea, nausea or vomiting Genitourinary Genitourinary ED: Denies dysuria, hematuria or urinary frequency Musculoskeletal Musculoskeletal: Denies arthralgias, back pain, myalgias or neck pain Integumentary Reports other Details: Redness to left breast ; Denies abscess, Abrasions or rash Neurologic Neurologic: Denies headache(s) or weakness Psychiatric Psychiatric: Denies anxiety, depression or suicidal thoughts Endocrine Endocrinology: Denies polydipsia, polyphagia or polyuria Hematologic/Lymphatic Hematologic/Lymphatic: Denies easy bleeding, easy bruising or lymphadenopathy Allergic/Immunologic Allergic/Immunologic ED: Denies mouth swelling, tongue swelling or urticaria EXAM Physical Exam Const Vital Signs: 08/19/25 17:19 Temperature 98.8 F Temperature Source Temporal Pulse Rate 112 H Respiratory Rate 18 Blood Pressure 136/96 H Blood Pressure Mean 109 Pulse Ox 97 Oxygen Delivery Method Room Air Positive well nourished and well developed General Appearance ED: well developed and NAD HEENT Reports TM's clear and moist mucous membranes normocephalic and atraumatic; Negative for trauma or tenderness Tympanic Membrane ED: Yes TM's clear Eyes PERRL and EOMs intact bilaterally General Eye ED: Negative for pale conjunctiva or scleral icterus Neck no lymphadenopathy, supple and no JVD General: Negative for tenderness Chest Wall inspection of chest normal and palpation of chest normal Chest Narrative: Left breast-cellulitic with recent biopsy and 1 stitch noted to the anterior breast. No abscess or fluctuance noted. Area warm to touch. Chest: Negative for tenderness Resp normal respiratory effort and clear to auscultation bilaterally Effort and Inspection: Negative for respiratory distress or pain with movement Auscultation: Negative for rhonchi, wheezes or diminished lung sounds Cardio regular rate, regular rhythm, S1 normal heart sound, S2 normal heart sound and no murmurs Peripheral Pulses: pulses 2+ throughout GI normal to inspection, nondistended, normoactive bowel sounds, soft to palpation, non-tender, non-distended and no masses Back/Spine no CVA tenderness and no thoracic nor lumbar tenderness Extremity normal to inspection General Extremety ED: Negative for edema General Extremity: Negative for edema Neuro oriented x3, CN's II-XII intact bilaterally, no sensory deficits noted and gait normal Sensorium / Orientation: awake, alert, oriented to person, oriented to place and oriented to time Motor Exam: strength 5/5 throughout and strength abnormal Psych mental status grossly normal Skin no rashes or lesions noted and no wounds MDM MDM MDM Narrative Medical decision making narrative: Patient presents with recent biopsy to the bilateral breast. Now redness and fever and chills to the left breast. Patient referred to the ER by her material preparation worker who is treating her for pyoderma gangrenosum. IV line established. Blood cultures ordered. CBC with differential obtained showed an elevated white blood cell count of 17.8 with hemoglobin of 14.5 and platelet count of 287. Chemistries unremarkable. BUN 11 and creatinine 0.79. Lactate was slightly elevated 2.1. Patient started empirically on Levaquin and vancomycin due to concern for cellulitis. Pyoderma gangrenosum is an inflammatory process typically brought on by trauma but cannot rule out cellulitis. Case will be discussed with hospitalist to evaluate patient for admission Lab Data Attestation: I reviewed the patient's lab results. Labs: Laboratory Results - last 24 hr 08/19/25 18:18 WBC 17.8 H RBC 4.89 Hgb 14.5 Hct 41.1 MCV 84.0 MCH 29.7 MCHC 35.3 RDW Std Deviation 41.6 RDW Coeff of [place] 13.5 Plt Count 287 MPV 9.7 Immature Gran % (Auto) 1.000 H Neut % (Auto) 79.0 H Lymph % (Auto) 9.9 L [place] % (Auto) 7.8 Eos % (Auto) 1.9 Baso % (Auto) 0.4 Absolute Neuts (auto) 14.1 H Absolute Lymphs (auto) 1.77 Nucleated RBC % 0 Sodium 137 Potassium 3.5 Chloride 99 Carbon Dioxide 25.6 Anion Gap 13 BUN 11 Creatinine 0.79 Estim Creat Clear Calc 100.82 Est GFR (MDRD) Non-Af 89 BUN/Creatinine Ratio 14.1 Glucose 168 H Lactic Acid 2.1 H* Calcium 9.0 Discharge Plan Dx/Rx/DC Orders Clinical Impression: Cellulitis of left breast, Pyoderma gangrenosum, Diabetes mellitus Disposition Disposition: Acute Care [facility]
--- OUTSIDE RECORDS SUMMARY | 2025-08-19 18:09 | XMS RPT_ITS | CCD ---
Author Organization [facility] Care Team Providers Care Cna Gna Name Role Phone Dr. Bharathi Preston Chi Primary Care Provider Dr. Bharathi Preston Chi Referring Provider Dr. Tammy Sears Attending Provider BHARATHI PRESTON CHI Primary Care Unavailable CAROLINA SANTANA Attending Unavailable Clemencia Guadalupe DO Primary Care Provider Cleemncia Guadalupe DO Referring Provider Dr. Yannick Bourne MD Attending Provider Bhargavi [employer] TE[employer]ER-[employer], [place] Attending Provider Bhargavi [employer]ER[employer], [place] Referring Provider Clemencia Guadalupe DO Primary Care Provider Clemencia Guadalupe DO Referring Provider Dr. Yannick Bourne MD Attending Provider Dr. Florentin Rayo MD Attending Provider Dr. Yannick Bourne MD Referring Provider Dr. Yannick Bourne MD Other Provider Dr. Yannick Bourne MD Admit Provider Clemencia Guadalupe DO Primary Care Provider Dr. Chris Calhoun DO Emergency Provider [phone] Ramón Pickering MD Attending Provider Dr. Ramón Pickering MD Referring Provider Collins DO, Clemencia Primary Care Provider Tayla RENDON, Dr. Lanier Attending Provider Collins DO, Clemencia Referring Provider Collins DO, Clemencia Primary Care Physician Perri RENDON, Dr. Lerma Attending Physician Tayla RENDON, Dr. Lanier Attending Physician Tayla RENDON, Dr. Lanier Nurse Practitioner Tayla RENDON, Dr. Lanier Admitting Physician Unique ABREU, Dr. Perez Emergency Department Physician Raheel RENDON, Dr. Melgar Attending Physician Kristine Anderson Attending Physician Collins, Clemencia Referring Unavailable Collins, Clemencia Primary Care Unavailable Kristine Guillen Attending Unavailable Collins, Clemencia Primary Care Unavailable Florentin Rayo Attending Unavailable Siska, Yannick Referring Unavailable Collins, Clemencia Referring Unavailable Collins, Clemencia Primary Care Unavailable Siska, Yannick Attending Unavailable Collins, Clemencia Primary Care Unavailable Siska, Yannick Admitting Unavailable Siska, Yannick Referring Unavailable Siska, Yannick Consulting Unavailable Siska, Yannick Attending Unavailable Collins, Clemencia Primary Care Unavailable Ramón Pickering Attending Unavailable Ramón Pickering Referring Unavailable Bhargavi [employer] TE[employer]ER, [place] Attending Unavailabl e Bhargavi [employer] TE[employer]ER, [place] Referring Unavailabl e Collins, Clemencia Primary Care Unavailable Collins, Clemencia Primary Care Unavailable Siska, Yannick Admitting Unavailable Siska, Yannick Attending Unavailable Siska, Yannick Attending Unavailable Collins, Clemencia Primary Care Unavailable Siska, Yannick Admitting Unavailable Siska, Yannick Referring Unavailable Siska, Yannick Attending Unavailable Collins, Clemencia Primary Care Unavailable Siska, Yannick Referring Unavailable Siska, Yannick Consulting Unavailable Collins, Clemencia Primary Care Unavailable Siska, Yannick Attending Unavailable Collins, Clemencia Primary Care Unavailable Siska, Yannick Admitting Unavailable Siska, Yannick Consulting Unavailable Siska, Yannick Attending Unavailable Shannon More Attending Unavailable Collins, Clemencia Primary Care Unavailable Collins, Clemencia Primary Care Unavailable Collins, Clemencia Referring Unavailable Demetrice Jones Attending Unavailable Collins, Clemencia Primary Care Unavailable Collins, Clemencia Referring Unavailable SisYannick grigsby Attending Unavailable Collins, Clemencia Primary Care Unavailable Collins, Clemencia Referring Unavailable SisYannick grigsby Attending Unavailable SisYannick grigsby Attending Unavailable Collins, Clemencia Referring Unavailable Collins, Clemencia Primary Care Unavailable SisYannick grigsby Attending Unavailable Collins, Clemencia Referring Unavailable Collins, Clemencia Primary Care Unavailable Siska, Yannick Attending Unavailable Collins, Clemencia Referring Unavailable Collins, Clemencia Primary Care Unavailable Sisseb, Yannick Attending Unavailable Collins, Clemencia Primary Care Unavailable Collins, Clemencia Referring Unavailable Collins, Clemencia Referring Unavailable Collins, Clemencia Primary Care Unavailable Yannick Bourne Attending Unavailable Yannick Bourne Attending Unavailable Collins, Clemencia Primary Care Unavailable Yannick Bourne Referring Unavailable Collins, Clemencia Primary Care Unavailable Ramón Pickering Attending Unavailable Ramón Pickering Referring Unavailable Collins, Clemencia Referring Unavailable Collins, Clemencia Primary Care Unavailable Yannick Bourne Attending Unavailable Collins, Clemencia Referring Unavailable Collins, Clemencia Primary Care Unavailable Kristine Guillen Unavailable Collins, Clemencia Referring Unavailable Collins, Clemencia Primary Care Unavailable Kristine Guillen Unavailable Allergies Allergy Classification Reported Allergen(s) Allergy Type Date of Onset Reaction(s) Facility (20 sources) Erythromycin Drug Allergy 2 Anaphylaxis [place] (20 sources) Penicillin V Drug Allergy 2 unknown [place] (20 sources) Sulfonamides (Antibiotic); Translations: [SULFA (SULFONAMIDE ANTIBIOTICS)] Allergy to substance 7 Anaphylaxis [place] (1 source) Erythromycin; Translations: [ERYTHROMYCIN] Drug Allergy 7 [facility] Repository (1 source) Penicillins; Translations: [PENICILLINS] Propensity to adverse reactions to drug (disorder) 7 [facility] Repository (1 source) Erythromycin Drug Allergy 5 [facility] (1 source) Penicillin Drug Allergy 5 [facility] Medications Current Medications Medication Drug Class(es) Dates Sig (Normalized) Sig (Original) 24 hr buPROPion hydrochloride 150 mg extended release oral tablet (20 sources) Aminoketone Start: 12-26-2024 take 1 tablet by mouth once daily Bupropion Hcl 150 mg tablet extended release 24 hr Active 150 mg PO daily December 26, 2024 1:00am mood Complies with drug therapy Start: 01-16-2018 End: 01-06-2022 take 1 tablet by mouth once daily Bupropion Hcl (Wellbutrin Sr) 100 mg tablet extended release 12 hr Discontinued 100 mg PO daily January 16, 2018 12:00am January 06, 2022 10:41am doxycycline hyclate 100 mg oral capsule (9 sources) Tetracycline-class Drug Start: 05-28-2025 take 1 capsule by mouth twice daily Doxycycline Hyclate 100 mg capsule Active 100 mg PO TWICE A DAY 14 7 0 May 28, 2025 12:00am Complies with drug therapy FLUoxetine 40 mg oral capsule (20 sources) Serotonin Reuptake Inhibitor Start: 01-06-2022 take 1 capsule by mouth once daily Fluoxetine (Prozac) 40 mg capsule Active 40 mg PO DAILY January 06, 2022 1:00am mood Complies with drug therapy hyoscyamine sulfate 0.125 mg oral tablet (20 sources) Start: 05-05-2025 take 1 tablet by mouth every twelve hours as needed Hyoscyamine Sulfate 0.125 mg tablet Active 0.125 mg PO EVERY 12 HOURS NEEDED as needed for dyspepsia May 05, 2025 12:00am Complies with drug therapy Start: 01-16-2018 End: 12-26-2024 Hyoscyamine Sulfate (Levsin) 0.125 mg tablet Discontinued 0.125 mg PO 2 to 4 times per day as needed January 16, 2018 12:00am December 26, 2024 2:54pm lansoprazole 15 mg delayed release oral capsule (14 sources) Proton Pump Inhibitor Start: 03-31-2025 take 1 capsule by mouth once daily Lansoprazole (Prevacid 24hr) 15 mg capsule,delayed release(DR/EC) Active 15 mg PO DAILY March 31, 2025 12:00am gerd Complies with drug therapy levonorgestrel 0.159880 mg/hr intrauterine system (20 sources) Progestin, Progestin-containi ng Intrauterine Device Start: 01-06-2022 Levonorgestrel (Liletta) 20.1 mcg/24 hrs (6 yrs) 52 mg intrauterine device Active 1 NMA INTRA-UTER ONCE January 06, 2022 1:00am child as a single dose Complies with drug therapy Start: 01-06-2022 Levonorgestrel (Liletta) 20.1 mcg/24 hrs [...] 2022 10:46am as a single dose lisinopril 20 mg oral tablet (20 sources) Angiotensin Converting Enzyme Inhibitor Start: 06-20-2025 take 1 tablet by mouth once daily Lisinopril 20 mg tablet Active 20 mg PO daily June 20, 2025 12:00am Complies with drug therapy Start: 01-16-2018 take 1 tablet by chris th once daily Lisinopril 5 mg tablet Active 5 mg PO daily January 16, 2018 12:00am bp Complies with drug therapy potassium chloride 20 meq extended release oral tablet (20 sources) Start: 06-20-2025 take 1 tablet by mouth once daily Potassium Chloride 20 mEq tablet extended release Active 20 meq PO daily June 20, 2025 12:00am Complies with drug therapy Start: 01-16-2018 Potassium Chlo ride (Klor-Con 10) 10 mEq tablet extended release Active 10 meq PO daily January 16, 2018 12:00am supplement Complies with drug therapy predniSONE 20 mg oral tablet (2 sources) Start: 07-11-2025 Prednisone 20 mg tablet Active mg PO July 11, 2025 12:00am Complies with drug therapy Tirzepatide (1 source) Start: 12-26-2024 Tirzepatide (Nasir ounkalinro) 2.5 mg/0.5 mL pen injector Active 2.5 mg SC FR December 26, 2024 1:00am weight lose On Hold: Ordered Complies with drug therapy Tirzepatide (Irenero) 2.5 mg/0.5 mL pen injector (14 sources) Start: 12-26-2024 Tirzepatide (Nasir gipsonnkalinro) 2.5 mg/0.5 mL pen injector Active 2.5 mg SC FR December 26, 2024 1:00am weight lose On Hold: Ordered Start: 12-26-2024 Tirzepatide (Nasir ounkalinro) 2.5 mg/0.5 mL pen injector Active 2.5 mg SC FR December 26, 2024 1:00am Start: 12-26-2024 Tirzepatide (Nasir gipsonnkalinro) 2.5 mg/0.5 mL pen injector Active mg SC EVERY WEEK December 26, 2024 1:00am valACYclovir 500 mg oral tablet (20 sources) Herpesvirus Nucleoside Analog DNA Polymerase Inhibitor, Herpes Simplex Virus Nucleoside Analog DNA Polymerase Inhibitor, Herpes Zoster Virus Nucleoside Analog DNA Polymerase Inhibitor Start: 01-06-2022 End: 03-31-2025 take 1 tablet by mouth twice daily as needed Valacyclovir (Valtrex) 500 mg tablet Active 500 mg PO TWICE A DAY as needed for cold sores March 31, 2025 12:00am Complies with drug therapy Completed/Discontinued Medications Medication Drug Class(es) Dates Sig (Normalized) Sig (Original) ciprofloxacin 500 mg oral tablet (9 sources) Quinolone Antimicrobial Start: 05-28-2025 End: 07-11-2025 take 1 tablet by mouth every twelve hours Ciprofloxacin Hcl 500 mg tablet Discontinued 500 mg PO Q12H 14 7 0 May 28, 2025 12:00am July 11, 2025 11:10am clindamycin 150 mg oral capsule (14 sources) Lincosamide Antibacterial Start: 05-07-2025 End: 05-26-2025 take 1 capsule by mouth three times daily Clindamycin Hcl (Cleocin Hcl) 150 mg capsule Discontinued 150 mg PO THREE TIMES A DAY 15 5 0 May 07, 2025 12:00am May 26, 2025 11:45pm ondansetron 4 mg disintegrating oral tablet (14 sources) Serotonin-3 Receptor Antagonist Start: 05-07-2025 End: 05-26-2025 take 1 tablet by mouth every eight hours as needed for nausea and vomiting Ondansetron 4 mg tablet,disintegrat ing Discontinued 4 mg PO Q8H as needed for nausea and vomiting 10 0 May 07, 2025 12:00am May 26, 2025 11:46pm oxyCODONE hydrochloride 5 mg oral tablet (14 sources) Opioid Agonist Start: 05-07-2025 End: 05-16-2025 take 1 tablet by mouth every four hours as needed for pain Oxycodone 5 mg tablet Discontinued 5 mg PO Q4H as needed for pain 20 5 0 May 07, 2025 May 16, 2025 10:24am Large breasts Hypertrophy of breast Problems Active Problems Problem Classification Problem Date Documented Date Episodic/Chronic Allergic reactions (1 source) Dermatitis, unspecified; Translations: [Dermatitis, unspecified] Onset: 06-27-2025 Episodic Complications of surgical procedures or medical care (20 sources) Post-operative wound cellulitis; Translations: [Infection following a procedure, other surgical site, initial encounter] Onset: 06-20-2025 05-26-2025 Episodic Contraceptive and procreative management (20 sources) Patient encounter status; Translations: [Encounter for contraceptive management, unspecified] 01-05-2022 Episodic Comment on above: Sulaimanrosy 09/11/20 Fluid and electrolyte disorders (1 source) Dehydration; Translations: [Dehydration] Onset: 05-20-2024 Episodic Menopausal disorders (19 sources) Perimenopausal state; Translations: [Menopausal and female climacteric states] 01-18-2023 Chronic Mood disorders (20 sources) Depressive disorder; Translations: [Depression] 01-06-2022 Chronic Noninfectious gastroenteritis (1 source) Noninfective gastroenteritis and colitis, unspecified; Translations: [Gastroenteritis] Onset: 05-20-2024 Episodic Nonmalignant breast conditions (20 sources) Large breast; Translations: [Hypertrophy of breast] Onset: 06-18-2025 12-26-2024 Episodic Open wounds of head; neck; and trunk (1 source) Unspecified open wound of right breast, initial encounter; Translations: [Unspecified open wound of right breast, initial encounter] Onset: 06-20-2025 Episodic Other aftercare (1 source) Other long line teamster (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) 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 therapy; Translations: [Other long line teamster (current) drug therapy] Onset: 08-18-2025 Episodic Residual codes; unclassified (2 sources) Other specified postprocedural states; Translations: [Other specified postprocedural states] Onset: 06-20-2025 Episodic Skin and subcutaneous tissue infections (6 sources) Postoperative cellulitis of surgical wound; 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] Episodic Unclassified (4 sources) Status post breast reduction Unclassified (5 sources) Z98.890 - Other specified postprocedural states,T81.49XA - Infection following a procedure, other surgical site, initial encounter Past or Other Problems Problem Classification Problem Date Documented Da te Episodic/Chronic Other screening for suspected conditions (not mental disorders or infectious disease) (1 source) Encounter for screening mammogram for malignant neoplasm of breast; Translations: [Encounter for screening mammogram for malignant neoplasm of breast] Onset: 01-21-2025 Episodic Results Test Name Value Interpretation Reference Range Facility Gram Stainon 08-19-2025 GS R MEDIAL BREAST AND L MEDIAL BREAST Gram Stain Rare Gram positive cocci Rare White Blood Cells Rare Gram positive rods Normal [facility] Comment on above: Performed By: #### M 100.3000, L100.0100, L3890.6301, L3890.6102, M100.2000, L500.3400, L3890.6202 #### [facility] [address] [place], [address] Wound Cultureon 08-19-2025 WC R MEDIAL BREAST AND L MEDIAL BREAST Further studies to follow. Wound Culture Mixed Gram Positive Organisms Amount Growth 2+ Normal [facility] Comment on above: Performed By: #### M 100.3000, L100.0100, L3890.6301, L3890.6102, M100.2000, L500.3400, L3890.6202 #### [facility] [address] [place], [place], [id number] CBC W/Diff, Automatedon 10- Absolute Lymph 4.06 X10 3/uL Normal 0.83-4.51 [facility] Comment on above: Performed By: #### M 100.3000, L100.0100, L3890.6301, L3890.6102, M100.2000, L500.3400, L3890.6202 #### [facility] [address] [place], [address] Absolute Neut 9.1 X10 3/uL High 2.0-7.7 [facility] Comment on above: Performed By: #### M 100.3000, L100.0100, L3890.6301, L3890.6102, M100.2000, L500.3400, L3890.6202 #### [facility] [address] [place], [address] Basophils/100 WBC (Bld) 0.7 % Normal 0-1 [facility] Comment on above: Performed By: #### M 100.3000, L100.0100, L3890.6301, L3890.6102, M100.2000, L500.3400, L3890.6202 #### [facility] [address] [place], [address] Eosinophils/100 WBC (Bld) 1.7 % Normal 0-5 [facility] Comment on above: Performed By: #### M 100.3000, L100.0100, L3890.6301, L3890.6102, M100.2000, L500.3400, L3890.6202 #### [facility] [address] [place], [address] Erythrocyte distribution width (RBC) [Ratio] 13.7 % Normal 11.6-14.6 [facility] Comment on above: Performed By: #### M 100.3000, L100.0100, L3890.6301, L3890.6102, M100.2000, L500.3400, L3890.6202 #### [facility] [address] [place], [address] Hematocrit (Bld) [Volume fraction] 41.1 % Normal 37-47 [facility] Comment on above: Performed By: #### M 100.3000, L100.0100, L3890.6301, L3890.6102, M100.2000, L500.3400, L3890.6202 #### [facility] [address] [place], [address] Hemoglobin (Bld) [Mass/Vol] 14.5 g/dL Normal 12.0-15.0 [facility] Comment on above: Performed By: #### M 100.3000, L100.0100, L3890.6301, L3890.6102, M100.2000, L500.3400, L3890.6202 #### [facility] [address] [place], [address] IG% 1.300 High 0.0-0.9 [facility] Comment on above: Result Comment: IG% - Immature Granulocytes (promyelocytes, myelocytes and metamyelocytes) > 1% indicates that a LEFT SHIFT is Present. Performed By: #### M 100.3000, L100.0100, L3890.6301, L3890.6102, M100.2000, L500.3400, L3890.6202 #### [facility] [address] [place], [address] Lymphocytes/100 WBC (Bld) 27.0 % Normal 19-41 [facility] Comment on above: Performed By: #### M 100.3000, L100.0100, L3890.6301, L3890.6102, M100.2000, L500.3400, L3890.6202 #### [facility] [address] [place], [address] MCH (RBC) [Entitic mass] 29.5 pg Normal 27.0-32.0 [facility] Comment on above: Performed By: #### M 100.3000, L100.0100, L3890.6301, L3890.6102, M100.2000, L500.3400, L3890.6202 #### [facility] [address] [place], [address] MCHC (RBC) [Mass/Vol] 35.3 g/dL Normal 32-36 [facility] Comment on above: Performed By: #### M 100.3000, L100.0100, L3890.6301, L3890.6102, M100.2000, L500.3400, L3890.6202 #### [facility] [address] [place], [address] MCV (RBC) [Entitic vol] 83.5 fL Normal 81-99 [facility] Comment on above: Performed By: #### M 100.3000, L100.0100, L3890.6301, L3890.6102, M100.2000, L500.3400, L3890.6202 #### [facility] [address] [place], [address] Monocytes/100 WBC (Bld) 8.7 % Normal 0-[address] [facility] Comment on above: Performed By: #### M 100.3000, L100.0100, L3890.6301, L3890.6102, M100.2000, L500.3400, L3890.6202 #### [facility] [address] [place], [address] Neutrophils/100 WBC (Bld) 60.6 % Normal 47-70 [facility] Comment on above: Performed By: #### M 100.3000, L100.0100, L3890.6301, L3890.6102, M100.2000, L500.3400, L3890.6202 #### [facility] [address] [place], [address] Nucleated RBC (Bld) [#/Vol] 0 10*3/uL Normal 0-5 [facility] Comment on above: Performed By: #### M 100.3000, L100.0100, L3890.6301, L3890.6102, M100.2000, L500.3400, L3890.6202 #### [facility] [address] [place], [address] Platelet mean volume (Bld) [Entitic vol] 9.7 fL Normal 6.2-12.0 [facility] Comment on above: Performed By: #### M 100.3000, L100.0100, L3890.6301, L3890.6102, M100.2000, L500.3400, L3890.6202 #### [facility] [address] [place], [address] Platelets (Bld) [#/Vol] 326 10*3/uL Normal 150-450 [facility] Comment on above: Performed By: #### M 100.3000, L100.0100, L3890.6301, L3890.6102, M100.2000, L500.3400, L3890.6202 #### [facility] [address] [place], [address] RBC (Bld) [#/Vol] 4.92 10*6/uL Normal 4.2-5.4 [facility] Comment on above: Performed By: #### M 100.3000, L100.0100, L3890.6301, L3890.6102, M100.2000, L500.3400, L3890.6202 #### [facility] [address] [place], [address] RDW SD 41.7 fl Normal 35.1-43.9 [facility] Comment on above: Performed By: #### M 100.3000, L100.0100, L3890.6301, L3890.6102, M100.1999, L500.3400, L3890.6202 #### [facility] [address] [place], [address] WBC (Bld) [#/Vol] 15.0 10*3/uL High 4.4-11.0 [facility] Comment on above: Performed By: #### M 100.3000, L100.0100, L3890.6301, L3890.6102, M100.1999, L500.3400, L3890.6202 #### [facility] [address] [place], [address] Hepatitis B Surface Antibody on 08-18-2025 HEP B Surf Ab Non-Reactive Normal [facility] Comment on above: Result Comment: <8.5 mIU/mL: Non-Reactive 8.5<= x <11.5 mIU/mL: Indeterminate >=11.5 mIU/mL: Reactive Non Reactive: Inconsistent with immunity less than <10 mIU/mL Reactive: Consistent with immunity greater than or equal to 10 mIU/mL Performed By: #### M 100.3000, L100.0100, L3890.6301, L3890.6102, M100.1999, L500.3400, L3890.6202 #### [facility] [address] [place], [address] Hepatitis C Antibodyon 08-18 Hepatitis C Ab Non-Reactive Normal Nonreactive [facility] Comment on above: Result Comment: Reac tive: Presumptive evidence of antibodies to HCV. Follow CDC recommendations for supplemental testing. Non-Reactive: Antibodies to HCV were not detected; does not exclude the possibility of exposure to HCV Reactive Results are presumptive evidence of antibodies to HCV. Follow CDC recommendations for supplemental testing. Order confirmation testing: HCV Quant by PCR testing - HCVPCR #[id number] Non Reactive: < 0.8 Equivocal: >/= 0.8 to < 1.0 Reactive: >/= 1.0 The CDC requires that a reactive/equivocal HCV antibody result be sent out for confirmation. HCV Quant by PCR testing. Performed By: #### M 100.3000, L100.0100, L3890.6301, L3890.6102, M100.2000, L500.3400, L3890.6202 #### [facility] [address] [place], [address] L3890.6102on 08-18-2025 HEP B Surf Ag Non-Reactive Normal Nonreactive [facility] Comment on above: Result Comment: Reac tive: Presumptive evidence of HBV. Repeatedly reactive samples must be confirmed using a neutralization test ([facility] HBsAg Confirmatory Test) Non-Reactive: HBsAg not detected; does not exclude the possibility of exposure to HBV Performed By: #### M 100.3000, L100.0100, L3890.6301, L3890.6102, M100.2000, L500.3400, L3890.6202 #### [facility] [address] [place], [address] Liver Profileon 08-18-2025 Albumin [Mass/Vol] 4.4 g/dL Normal 3.5-5.0 [facility] Comment on above: Order Comment: R MED IAL BREAST AND L MEDIAL BREAST Result Comment: AMENDED REPORT 08/18/25 173 ALB previously reported as: 4.4 g/dL Performed By: #### M 100.3000, L100.0100, L3890.6301, L3890.6102, M100.2000, L500.3400, L3890.6202 #### [facility] [address] [place], [address] ALK PHOS 68 U/L Normal 35-104 [facility] Comment on above: Order Comment: R MED IAL BREAST AND L MEDIAL BREAST Performed By: #### M 100.3000, L100.0100, L3890.6301, L3890.6102, M100.2000, L500.3400, L3890.6202 #### [facility] [address] [place], [address] ALT [Catalytic activity/Vol] 25 U/L Normal <=34 [facility] Comment on above: Order Comment: R MED IAL BREAST AND L MEDIAL BREAST Result Comment: AMENDED REPORT 08/18/251731 ALT previously reported as: 25 U/L Performed By: #### M 100.3000, L100.0100, L3890.6301, L3890.6102, M100.2000, L500.3400, L3890.6202 #### [facility] [address] [place], [address] AST [Catalytic activity/Vol] 21 U/L Normal <=31 [facility] Comment on above: Order Comment: R MED IAL BREAST AND L MEDIAL BREAST Result Comment: AMENDED REPORT 08/18/251731 AST previously reported as: 21 U/L Performed By: #### M 100.3000, L100.0100, L3890.6301, L3890.6102, M100.2000, L500.3400, L3890.6202 #### [facility] [address] [place], [place], [id number] Bilirubin [Mass/Vol] 0.72 mg/dL Normal 0.00-1.30 [facility] Comment on above: Order Comment: R MED IAL BREAST AND L MEDIAL BREAST Result Comment: AMENDED REPORT 08/18/251731 T BILI previously reported as: 0.72 mg/dL Performed By: #### M 100.3000, L100.0100, L3890.6301, L3890.6102, M100.2000, L500.3400, L3890.6202 #### [facility] [address] [place], [place], [id number] Bilirubin.direct [Mass/Vol] 0.24 mg/dL Normal 0.00-0.30 [facility] Comment on above: Order Comment: R MED IAL BREAST AND L MEDIAL BREAST Performed By: #### M 100.3000, L100.0100, L3890.6301, L3890.6102, M100.2000, L500.3400, L3890.6202 #### [facility] [address] [place], [address] Globulin (S) [Mass/Vol] 2.0 g/dL Low 2.2-4.2 [facility] Comment on above: Order Comment: R MED IAL BREAST AND L MEDIAL BREAST Result Comment: AMENDED REPORT 08/18/251731 GLOB previously reported as: 2.0 L g/dL Performed By: #### M 100.3000, L100.0100, L3890.6301, L3890.6102, M100.2000, L500.3400, L3890.6202 #### [facility] [address] [place], [address] T PROT 6.4 g/dL Normal 5.9-8.4 [facility] Comment on above: Order Comment: R MED IAL BREAST AND L MEDIAL BREAST Result Comment: AMENDED REPORT 08/18/251731 T PROT previously reported as: 6.4 g/dL Performed By: #### M 100.3000, L100.0100, L3890.6301, L3890.6102, M100.2000, L500.3400, L3890.6202 #### [facility] [address] [place], [address] Plastic Surgery Visit Report on 08-14-2025 Plastic Surgery Visit Report [facility] [address], [address] [place] [address] OFFICE VISIT Date of Service: 08/14/25 MR#: [id number] Acct: [id number] Name: PATRIA JOHNSON Rep #: [id number] : 1970 Provider: BENJIE Torres Age/Sex: 54/F Location[place] [facility] [place] Status: Signed Intake Vital Signs 3 07/11/25 11:09 08/14/25 11:02 Height 5 ft 4 in 5 ft 4 in BP 144/98 H 119/80 Blood Pressure Location Rt brachial Rt brachial Position Sitting Respiration 18 18 Pulse 81 100 Temp 97.9 F 97.9 F Temp Source Temporal Temporal Pulse Oximetry (%) 97 6 Oxygen Delivery Method room air room air Intake Visit Reasons: FOLLOW UP Chief Complaint: post op breast reduction Accompanied by: Is patient in pain?: No Allergies erythromycin base Allergy (Verified 08/14/25 11:03) Anaphylaxis penicillin V Allergy (Verified 08/14/25 11:03) unknown Sulfa (Sulfonamide Antibiotics) Allergy (Verified 08/14/25 11:03) Anaphylaxis Medications 3 ???Medication ???Instructions ???Recorded ???Confirmed ???Type lisinopril 5 mg tablet 5 mg PO QDAY bp 01/16/18 08/14/25 History potassium chloride 10 mEq 10 meq PO QDAY supplement 01/16/18 08/14/25 History tablet,extended release (Klor-Con) fluoxetine 40 mg capsule (Prozac) 40 mg PO DAILY mood 01/06/2207/30 History levonorgestrel 20.4 mcg/24 hr (up 1 device intrauterine ONCE child 01/06/22 08/14/25 History to 8 yrs) 52 mg intrauterine device (Liletta) bupropion HCl 150 mg 24 hr tablet, 150 mg PO QDAY mood 12/26/24 History extended release tirzepatide 2.5 mg/0.5 mL 2.5 mg subcut FR weight lose 12/2608/14/25 History subcutaneous pen injector (Devenuntom) Held on 05/26/25. Instructions: MD Ordered lansoprazole 15 mg capsule,delayed 15 mg PO DAILY gerd 03/31/25 History release (Prevacid 24Hr) valacyclovir 500 mg tablet 500 mg PO BID PRN cold sores 03/3108/14/25 History (Valtrex) hyoscyamine sulfate 0.125 mg tablet 0.125 mg PO Q12H PRN PRN dyspep jaclyn 05/05/25 08/14/25 History doxycycline hyclate 100 mg capsule 100 mg PO BID 7 days #14 caps 08/14/25 Rx lisinopril 20 mg tablet 20 mg PO QDAY 06/20/25 08/14/25 Hi story potassium chloride 20 mEq 20 meq PO QDAY 06/20/25 08/14/25 H istory tablet,extended release prednisone 20 mg tablet mg PO 07/11/25 08/14/25 History Nurse's Note: pt reports little blister this am on right breast Subjective Details: Date of Procedure: 05/07/25 Pre-Operative Diagnosis: Macromastia Post-Operative Diagnosis: Same Surgery/Procedure Performed: 1) Breast reduction (bilateral), inferior pedicle with alan pattern skin resection and axillary/lateral chest liposuction (CPT: 08541 x 2 with 50 modifier) 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 18 cc of quarter percent Marcaine with 1 200,000 epinephrine for local block) RN Documented Start/Stop Times: Ms. Johnson is a 54 year-old female who presents today for routine postop follow up. She is 6 weeks out from bilateral breast reduction on 05/07/[address] Bourne due to macromastia. Her healing was complicated by pyoderma gangrenosum. Initial biopsy obtained were nonspecific. She was referred to Dr. Pickering for management and received injections and was started on oral prednisone. She has been compliant with activity restrictions. Her left breast wound is more sore than her right. She reports preserved nipple sensation bilaterally. 07/24/25: She continues to do well and is happy with her results. She is weaned down her prednisone. Her incisions are healing well. Her pyoderma gangrenosum lesions continue to improve in size and appearance. Current encounter: She is over 3 months out from surgery presents with her today. She continues to slowly wean down her prednisone her Dr. Pickering and is now taking 10mg per day. Her wounds have fully healed without drainage but she noticed a blister on her right breast this morning that hasn't drained anything. She notes ongoing tenderenss around her now healed wounds. Denies fever, chills. She is generally happy with her results. Objective Details: Afebrile/VSS. In no acute distress Sternal notch to left nipple 22 cm Sternal notch to nipple 19 cm Right nipple to midline 11.5 cm Left nipple to midline 12 cm Right nipple to IMF 11 cm Left nipple to IMF 11 cm Left breast: Wound under the breast has healed with epithelization. Incision is well healed Right breast: Wound has completely. No blistering n (more content not included)... Normal [facility] Acid Fast Bacillus Cultureon 08-12-2025 tAFBC TESTING PERFORMED AT [facility]. ORIGINAL REPORT ON FILE IN LAB CONTAINS ADDITIONAL TEST SITE INFORMATION. Culture, Acid Fast NO ACID-FAST BACILLI ISOLATED AFTER 6 WEEKS. [facility] Comment on above: Performed By: #### M 100.3000, L100.0100, L3890.6301, L3890.6102, M100.2000, L500.3400, L3890.6202 #### [facility] [place], [address] Acid Fast Bacillus Smear/Flu oron 08-12-2025 tafb TESTING PERFORMED AT [facility]. ORIGINAL REPORT ON FILE IN LAB CONTAINS ADDITIONAL TEST SITE INFORMATION. Smear, Acid Fast Tissue Grinding Smear: Negative Normal [facility] Comment on above: Performed By: #### M 100.3000, L100.0100, L3890.6301, L3890.6102, M100.2000, L500.3400, L3890.6202 #### [facility] [address] [place], [address] Culture, Fungus 8482on 08-12 CUF TESTING PERFORMED AT [facility]. ORIGINAL REPORT ON FILE IN LAB CONTAINS ADDITIONAL TEST SITE INFORMATION. CUF No yeast or mold isolated after 4 weeks. Normal [facility] Comment on above: Performed By: #### M 100.3000, L100.0100, L3890.6301, L3890.6102, M100.2000, L500.3400, L3890.6202 #### [facility] [address] [place], [address] Plastic Surgery Visit Report on 07-24-2025 Plastic Surgery Visit Report [facility] [address], [address] [place] [address] OFFICE VISIT Date of Service: 07/24/25 MR#: [id number] Acct: [id number] Name: PATRIA JOHNSON Rep #: [id number] : 1970 Provider: BENJIE Torres Age/Sex: 54/F Location: [facility] [place] Status: Signed Intake Vital Signs 3 07/11/25 11:09 07/24/25 11:28 Height 5 ft 4 in BP 144/98 H 130/86 H Blood Pressure Location Rt brachial Rt brachial Position Sitting Respiration 18 18 Pulse 81 95 Pulse Source Monitor Temp 97.9 F Temp Source Temporal Pulse Oximetry (%) 97 97 Oxygen Delivery Method room air room air Intake Visit Reasons: 2 W FU Chief Complaint: post op breast reduction Is patient in pain?: No Allergies erythromycin base Allergy (Verified 07/24/25 11:27) Anaphylaxis penicillin V Allergy (Verified 07/24/25 11:27) unknown Sulfa (Sulfonamide Antibiotics) Allergy (Verified 07/24/25 11:27) Anaphylaxis Medications 3 ???Medication ???Instructions ???Recorded ???Confirmed ???Type lisinopril 5 mg tablet 5 mg PO QDAY bp 01/16/18 07/24/25 History potassium chloride 10 mEq 10 meq PO QDAY supplement 01/16/18 07/24/25 History tablet,extended release (Klor-Con) fluoxetine 40 mg capsule (Prozac) 40 mg PO DAILY mood 01/06/2207/01 History levonorgestrel 20.4 mcg/24 hr (up 1 device intrauterine ONCE child 01/06/22 07/24/25 History to 8 yrs) 52 mg intrauterine device (Liletta) bupropion HCl 150 mg 24 hr tablet, 150 mg PO QDAY mood 12/26/24 History extended release tirzepatide 2.5 mg/0.5 mL 2.5 mg subcut FR weight lose 12/2607/24/25 History subcutaneous pen injector (Kimmy) Held on 05/26/25. Instructions: Ordered lansoprazole 15 mg capsule,delayed 15 mg PO DAILY gerd 03/31/25 History release (Prevacid 24Hr) valacyclovir 500 mg tablet 500 mg PO BID PRN cold sores 03/3107/24/25 History (Valtrex) hyoscyamine sulfate 0.125 mg tablet 0.125 mg PO Q12H PRN PRN dyspep jaclyn 05/05/25 07/24/25 History doxycycline hyclate 100 mg capsule 100 mg PO BID 7 days #14 caps 07/24/25 Rx lisinopril 20 mg tablet 20 mg PO QDAY 06/20/25 07/24/25 Hi story potassium chloride 20 mEq 20 meq PO QDAY 06/20/25 07/24/25 H istory tablet,extended release prednisone 20 mg tablet mg PO 07/11/25 07/24/25 History Subjective Details: Date of Procedure: 05/07/25 Pre-Operative Diagnosis: Macromastia Post-Operative Diagnosis: Same Surgery/Procedure Performed: 1) Breast reduction (bilateral), inferior pedicle with alan pattern skin resection and axillary/lateral chest liposuction (CPT: 14676 x 2 with 50 modifier) 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 18 cc of quarter percent Marcaine with 1 200,000 epinephrine for local block) RN Documented Start/Stop Times: Ms. Johnson is a 54 year-old female who presents today for routine postop follow up. She is 6 weeks out from bilateral breast reduction on 05/07/[address] Bourne due to macromastia. Her healing was complicated by pyoderma gangrenosum. Initial biopsy obtained were nonspecific. She was referred to Dr. Pickering for management and received injections and was started on oral prednisone. She has been compliant with activity restrictions. Her left breast wound is more sore than her right. She reports preserved nipple sensation bilaterally. Today's encounter 07/24: She continues to do well and is happy with her results. She is weaned down to prednisone 1 mg daily. Her incisions are healing well. Her pyoderma gangrenosum lesions continue to improve in size and appearance. Objective Details: Per Dr. Bourne's exam and measurements Sternal notch to nipple: Right is 21cm, Left is 22cm Nipple to midline: Right is 11cm, Left is 11cm Nipple to IMF: Right is 10cm, Left is 10cm Left inferior pole breast with improving wound with granulation tissue filling, no drainage. Right anterior vertical breast healing well with granulation tissue filling, no drainage. Coding Level of Care Code Global Post Op Diagnoses Status post breast reduction Z98.890 Pyoderma gangrenosum L88 [facility] Medical History (Updated 07/24/25 @ 13:05 by BENJIE Gaffney) Pyoderma gangrenosum Depression Anxiety Diabetes Arthritis Anemia Easy bruising History of diverticulitis History of IBS Non-smoker Shortness of breath on exertion Contraceptive management GERD (gastroesophageal reflux disease) Vitamin D deficiency Hyperhidrosis Hypertension Surgical (more content not included)... Normal [facility] Visit Report on 07-11-2025 Plastic Surgery Visit Report [facility] [address], [address] [place] [address] OFFICE VISIT Date of Service: 07/11/25 MR#: [id number] Acct: [id number] Name: PATRIA JOHNSON Rep #: [id number] : 1970 Provider: BENJIE Torres Age/Sex: 54/F Location: [facility] [place] Status: Signed Pt seen evaluated w/IRIS. I personally interviewed exam the pt. I was involved in all aspects of pt's orders, interpretation of results treatment Intake Vital Signs 3 06/20/25 10:38 07/11/25 11:09 Height 5 ft 4 in 5 ft 4 in BP 134/85 H 144/98 H Blood Pressure Location Lt brachial Rt brachial Position Sitting Respiration 18 18 Pulse 100 81 Temp 99.3 F H 97.9 F Temp Source Temporal Temporal Pulse Oximetry (%) 96 97 Oxygen Delivery Method room air room air Intake Visit Reasons: FOLLOW UP Chief Complaint: post op breast reduction Accompanied by: Is patient in pain?: No Allergies erythromycin base Allergy (Verified 07/11/25 11:10) Anaphylaxis penicillin V Allergy (Verified 07/11/25 11:10) unknown Sulfa (Sulfonamide Antibiotics) Allergy (Verified 07/11/25 11:10) Anaphylaxis Medications 3 ???Medication ???Instructions ???Recorded ???Confirmed ???Type lisinopril 5 mg tablet 5 mg PO QDAY bp 01/16/18 06/13/25 History potassium chloride 10 mEq 10 meq PO QDAY supplement 01/16/18 06/13/25 History tablet,extended release (Klor-Con) fluoxetine 40 mg capsule (Prozac) 40 mg PO DAILY mood 01/06/2205/30 History levonorgestrel 20.4 mcg/24 hr (up 1 device intrauterine ONCE child 01/06/22 06/13/25 History to 8 yrs) 52 mg intrauterine device (Liletta) bupropion HCl 150 mg 24 hr tablet, 150 mg PO QDAY mood 12/26/24 History extended release tirzepatide 2.5 mg/0.5 mL 2.5 mg subcut FR weight lose 12/2606/13/25 History subcutaneous pen injector (Devenunkalinro) Held on 05/26/25. Instructions: MD Ordered lansoprazole 15 mg capsule,delayed 15 mg PO DAILY gerd 03/31/25 History release (Prevacid 24Hr) valacyclovir 500 mg tablet 500 mg PO BID PRN cold sores 03/3106/13/25 History (Valtrex) hyoscyamine sulfate 0.125 mg tablet 0.125 mg PO Q12H PRN PRN dyspep jacyln 05/05/25 06/13/25 History doxycycline hyclate 100 mg capsule 100 mg PO BID 7 days #14 caps 06/13/25 Rx lisinopril 20 mg tablet 20 mg PO QDAY 06/20/25 06/20/25 Hi story potassium chloride 20 mEq 20 meq PO QDAY 06/20/25 06/20/25 H istory tablet,extended release prednisone 20 mg tablet mg PO 07/11/25 07/11/25 History Nurse's Note: pt here for post mihir breast reduction. Pt reports following up with Dermatology. pt is on prednisone Subjective Details: Ms. Johnson is a 54 year-old female who presents today for postop follow up. She is 2 months out from bilateral breast reduction on 05/07/[address] Bourne due to macromastia. Her healing was complicated by pyoderma gangrenosum. Initial biopsy obtained were nonspecific. She was referred to Dr. Pickering for management and received injections and was started on oral prednisone. She has been compliant with activity restrictions. Her left breast wound is more sore than her right. She reports preserved nipple sensation bilaterally. General: Denies fever, chills HEENT: Denies headaches, vision changes, sore throat Cardio: Denies chest pain, leg edema Pulmonary: Denies shortness of pain, cough, wheezing GI: Denies nausea, vomiting, diarrhea Objective Details: Examined with Dr. Bourne Right anterior vertical breast wound healing well with some necrotic debris on wound edge that was removed with sterile gauze and water. Granulation tissue in the wound bed. No drainage. Left inferior pole breast with a circular wound with some necrotic debris. Granulation tissue filling in. No drainage. Coding Level of Care Code Global Post Op Diagnoses Status post breast reduction Z98.890 [facility] Medical History Depression Anxiety Diabetes Arthritis Anemia Easy bruising History of diverticulitis History of IBS Non-smoker Shortness of breath on exertion Contraceptive management GERD (gastroesophageal reflux disease) Vitamin D deficiency Hyperhidrosis Hypertension Surgical History Hx of LASIK S/P cholecystectomy H/O: Family History Mother Hypertension CVA (cerebral vascular accident) Father Hypertension Social History household members: spouse housing: house Smoking Status: Never smoker alcohol intake: never substance use type: does not use caffeine: Yes what type of physical activity do yo (more content not included)... Normal [facility] Culture, Anaerobic Any Sourc kandy 06-26-2025 CUAN No anaerobic bacteria isolated. Normal [facility] Comment on above: Performed By: #### M 100.3000, L100.0100, L3890.6301, L3890.6102, M100.2000, L500.3400, L3890.6202 #### [facility] [address] [place], [place], [id number] Wound Cultureon 06-26-2025 #2 Organism is too fastidious for routine susceptibility studies. Staphylococcus haemolyticus Amount Growth 2+ Rothia kristinae Rothia kristinae Staphylococcus haemolyticus: REACTION cefOXitin Susc Islt NEG Doxycycline Islt LASHELL <=0.5 Clindamycin Islt LASHELL 1 I Clindamycin.induced Susc Islt NEG Erythromycin Islt LASHELL <=0.25 S Gentamicin Islt LASHELL <=0.5 S Linezolid Islt LASHELL 2 S Oxacillin Susc Islt <=0.25 S Tetracycline Islt LASHELL <=1 S TMP SMX Islt LASHELL <=10 S Vancomycin Islt LASHELL <=0.5 S Normal [facility] Comment on above: Performed By: #### M 100.3000, L100.0100, L3890.6301, L3890.6102, M100.2000, L500.3400, L3890.6202 #### [facility] [address] [place], [address] Gram Stainon 06-24-2025 GS Positive Normal [facility] Comment on above: Performed By: #### M 100.3000, L100.0100, L3890.6301, L3890.6102, M100.2000, L500.3400, L3890.6202 #### [facility] [address] [place], [address] Anaerobic cultureOrdered By: Ramón Pickering on 06-23-2025 Bacteria identified Anaer cx Nom (Unsp spec) No anaerobic bacteria isolated. [facility] Gram stainOrdered By: Ramón Pickering on 06-23-2025 Microscopic observation Gram stain Nom (Unsp spec) [facility] Routine wound cultureOrdered By: Ramón Pickering on 06-23-2025 Microbial culture, routine Staphylococcus haemolyticus Abnormal [facility] Visit Report on 06-20-2025 Plastic Surgery Visit Report [facility] [address] [place], [place] [address] OFFICE VISIT Date of Service: 06/20/25 MR#: [id number] Acct: [id number] Name: PATRIA JOHNSON Rep #: [id number] : 1970 Provider: Dr. Yannick Bourne MD Age/Sex: 54/F Location: [facility] Status: Signed Intake Vital Signs 3 06/13/25 10:53 06/20/25 10:38 Height 5 ft 4 in 5 ft 4 in BP 149/93 H 134/85 H Blood Pressure Location Lt brachial Lt brachial Position Sitting Sitting Respiration 18 18 Pulse 98 100 Temp 99.3 F H 99.3 F H Temp Source Temporal Temporal Pulse Oximetry (%) 95 96 Oxygen Delivery Method room air room air Intake Visit Reasons: FOLLOW UP Chief Complaint: post op breast reduction Accompanied by: Is patient in pain?: No Allergies erythromycin base Allergy (Verified 06/20/25 10:39) Anaphylaxis penicillin V Allergy (Verified 06/20/25 10:39) unknown Sulfa (Sulfonamide Antibiotics) Allergy (Verified 06/20/25 10:39) Anaphylaxis Medications 3 ???Medication ???Instructions ???Recorded ???Confirmed ???Type lisinopril 5 mg tablet 5 mg PO QDAY bp 01/16/18 06/13/25 History potassium chloride 10 mEq 10 meq PO QDAY supplement 01/16/18 06/13/25 History tablet,extended release (Klor-Con) fluoxetine 40 mg capsule (Prozac) 40 mg PO DAILY mood 01/06/2205/30 History levonorgestrel 20.4 mcg/24 hr (up 1 device intrauterine ONCE child 01/06/22 06/13/25 History to 8 yrs) 52 mg intrauterine device (Liletta) bupropion HCl 150 mg 24 hr tablet, 150 mg PO QDAY mood 12/26/24 History extended release tirzepatide 2.5 mg/0.5 mL 2.5 mg subcut FR weight lose 12/2606/13/25 History subcutaneous pen injector (Mounjaro) Held on 05/26/25. Instructions: Ordered lansoprazole 15 mg capsule,delayed 15 mg PO DAILY gerd 03/31/25 History release (Prevacid 24Hr) valacyclovir 500 mg tablet 500 mg PO BID PRN cold sores 03/3106/13/25 History (Valtrex) hyoscyamine sulfate 0.125 mg tablet 0.125 mg PO Q12H PRN PRN dyspep jaclyn 05/05/25 06/13/25 History ciprofloxacin HCl 500 mg tablet 500 mg PO Q12H 7 days #14 tabs 06/13/25 Rx doxycycline hyclate 100 mg capsule 100 mg PO BID 7 days #14 caps 06/13/25 Rx lisinopril 20 mg tablet 20 mg PO QDAY 06/20/25 06/20/25 Hi story potassium chloride 20 mEq 20 meq PO QDAY 06/20/25 06/20/25 H istory tablet,extended release Subjective Details: Operative Information Date of Procedure: 05/07/25 Pre-Operative Diagnosis: Macromastia Post-Operative Diagnosis: Same Surgery/Procedure Performed: 1) Breast reduction (bilateral), inferior pedicle with alan pattern skin resection and axillary/lateral chest liposuction (CPT: 02404 x 2 with 50 modifier) 20 June 2025: Patient here for follow up for wound care. Biopsies were nonspecific for pyoderma. Patient has been doing wet-to-dry dressings twice daily. 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 Underlying granulation tissue forming and wound filling in Coding Level of Care Code Global Post Op Diagnoses Status post breast reduction Z98.890 [facility] Medical History Depression Anxiety Diabetes Arthritis Anemia Easy bruising History of diverticulitis History of IBS Non-smoker Shortness of breath on exertion Contraceptive management GERD (gastroesophageal reflux disease) Vitamin D deficiency Hyperhidrosis Hypertension Surgical History Hx of LASIK S/P cholecystectomy H/O: Family History Mother Hypertension CVA (cerebral vascular accident) Father Hypertension Social History household members: spouse housing: house Smoking Status: Never smoker alcohol intake: never substance use type: does not use caffeine: Yes what type of physical activity do you participate in: none seatbelt use: always do you feel safe at home: Yes 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, DENIES EDIBLES, DENIES MARIJUANA USE, NO FAMILY HISTORY OF BLOOD CLOTS Assessment and Plan (No Qualifiers) Assessment and Plan (1) Status post breast reduction: Status: Acute Plan: Clinically there is concern for pyoderma gangrenosum The wounds are outside of areas of anticipated ischemia (they are not at the T point) and they are sparing the nipple ( (more content not included)... Normal [facility] Surgical pathology reportOrd ered By: Debbie Mcarthur on 06-19-2025 Surgical pathology study [facility] Visit Report on 06-13-2025 Plastic Surgery Visit Report [facility] [address], [address] [place], [place] [address] OFFICE VISIT Date of Service: 06/13/25 MR#: [id number] Acct: [id number] Name: PATRIA JOHNSON Rep #: [id number] : 1970 Provider: Dr. Yannick Bourne MD Age/Sex: 54/F Location: [facility] [place] Status: Signed Intake Vital Signs 3 05/30/25 11:28 06/13/25 10:53 Height 5 ft 4 in 5 ft 4 in BP 122/82 H 149/93 H Blood Pressure Location Lt brachial Lt brachial Position Sitting Sitting Respiration 18 18 Pulse 100 98 Temp 98.6 F 99.3 F H Temp Source Temporal Temporal Pulse Oximetry (%) 97 95 Oxygen Delivery Method room air room air Intake Visit Reasons: 1 W FU Chief Complaint: post op breast reduction Accompanied by: Is patient in pain?: Yes (wound area sore) Allergies erythromycin base Allergy (Verified 06/13/25 10:55) Anaphylaxis penicillin V Allergy (Verified 06/13/25 10:55) unknown Sulfa (Sulfonamide Antibiotics) Allergy (Verified 06/13/25 10:55) Anaphylaxis Medications 3 ???Medication ???Instructions ???Recorded ???Confirmed ???Type lisinopril 5 mg tablet 5 mg PO QDAY bp 01/16/18 06/13/25 History potassium chloride 10 mEq 10 meq PO QDAY supplement 01/16/18 06/13/25 History tablet,extended release (Klor-Con) fluoxetine 40 mg capsule (Prozac) 40 mg PO DAILY mood 01/06/2205/30 History levonorgestrel 20.4 mcg/24 hr (up 1 device intrauterine ONCE child 01/06/22 06/13/25 History to 8 yrs) 52 mg intrauterine device (Liletta) bupropion HCl 150 mg 24 hr tablet, 150 mg PO QDAY mood 12/26/24 History extended release tirzepatide 2.5 mg/0.5 mL 2.5 mg subcut FR weight lose 12/2606/13/25 History subcutaneous pen injector (Kimmy) Held on 05/26/25. Instructions: MD Ordered lansoprazole 15 mg capsule,delayed 15 mg PO DAILY gerd 03/31/25 History release (Prevacid 24Hr) valacyclovir 500 mg tablet 500 mg PO BID PRN cold sores 03/3106/13/25 History (Valtrex) hyoscyamine sulfate 0.125 mg tablet 0.125 mg PO Q12H PRN PRN dyspep jaclyn 05/05/25 06/13/25 History ciprofloxacin HCl 500 mg tablet 500 mg PO Q12H 7 days #14 tabs 06/13/25 Rx doxycycline hyclate 100 mg capsule 100 mg PO BID 7 days #14 caps 06/13/25 Rx Nurse's Note: 1% lidocaine w/ [facility] system [facility] [id number] lot [id number] exp Subjective Details: Doing well overall with dressing changes. 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 Underlying granulation tissue forming and wound filling in Coding Level of Care Code Global Post Op Diagnoses Status post breast reduction Z98.890 [facility] Medical History Depression Anxiety Diabetes Arthritis Anemia Easy bruising History of diverticulitis History of IBS Non-smoker Shortness of breath on exertion Contraceptive management GERD (gastroesophageal reflux disease) Vitamin D deficiency Hyperhidrosis Hypertension Surgical History Hx of LASIK S/P cholecystectomy H/O: Family History Mother Hypertension CVA (cerebral vascular accident) Father Hypertension Social History household members: spouse housing: house Smoking Status: Never smoker alcohol intake: never substance use type: does not use caffeine: Yes what type of physical activity do you participate in: none seatbelt use: always do you feel safe at home: Yes 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, DENIES EDIBLES, DENIES MARIJUANA USE, NO FAMILY HISTORY OF BLOOD CLOTS Assessment and Plan (No Qualifiers) Assessment and Plan (1) Status post breast reduction: Status: Acute Plan: 3 punch biopsies obtained today of the left and right breast wounds (consent obtained , 4 cc of 1% lidocaine with 1-200,000 epinephrine was used and a 5 mm punch was used after the area was prepped and draped with alcohol) Concern for pyoderma gangrenosum, especially since area of necrosis is sparing the nipple on the right side, and the area appears to be circular on the left side and getting larger since the debridement in clinic. No debridement Plan to follow-up biopsies and continue wet-to-dry dressings twice daily Follow-up in 1 week 06/15/25918 Date (more content not included)... Normal [place] [facility] Specimen Level Leon 06-13-2025 Surgery Specimen Level IV Patient Age/Sex Location Account Attending Physician PATRIA JOHNSON 54/F LABSPEC [id number] Dr. Yannick Bourne MD Specimen: [id number] Received: 06/13/25 Status: LIV Du Num: [id number] Spec Type: BREAST BX Subm Dr: Dr. Yannick Bourne MD HEADER OPERATION: Biopsy right and left breast wounds PRE-OP DIAGNOSIS: Right and left breast wounds TISSUE SUBMITTED: A- Right breast wound biopsy - rule out pyoderma gangrenosum, B- Left breast wound #1 - rule out pyoderma gangrenosum, C- Left breast wound #2 - rule out pyoderma gangrenosum MICROSCOPIC DIAGNOSIS A. Skin, breast, right, punch biopsy: - Ulcer with granulation tissue, acute inflammation, and subepidermal edema - see Comment. B. Skin, breast, left, punch biopsy: - Ulcer with granulation tissue, acute inflammation, subepidermal edema, and occasional multinucleated giant cells with foreign material suggestive of suture material. - see Comment. C. Skin, breast, left, punch biopsy: - Ulcer with granulation tissue, acute inflammation, and subepidermal edema - see Comment. COMMENT: Classic features of pyoderma gangrenosum are not observed. However, some cases of pyoderma gangrenosum can show non-specific ulcerative changes on biopsy, especially if the lesion is not acute. Recommend clinical correlation. MICROSCOPIC DESCRIPTION Slides are reviewed. GROSS DESCRIPTION Received in 3 formalin containers labeled with the patient's name and date of . Designated as: A. "Biopsy right breast wound, rule out pyoderma gangrenosum" is a 0.4 x 0.3 cm hernandez skin punch, excised to maximum depth of 0.5 cm. The resection margin is inked orange and the specimen is entirely submitted in 1 cassette. B. "Left breast biopsy wound #1, rule out pyoderma gangrenosum" is a 0.4 x 0.3 cm hernandez skin punch, excised to a maximum depth of 0.6 cm. The resection margin is inked green and the specimen is entirely submitted in 1 cassette. C. "Left breast wound biopsy #2, rule out pyoderma gangrenosum" is a 0.4 x 0.3 cm slightly irregular, hernandez skin punch excised to a maximum depth of 0.6 cm. The resection margin is inked blue and the specimen is entirely submitted in 1 cassette. Note: Part B container was open at arrival to pathology and devoid of formalin; Part C container was open with approximately half formalin volume. (AZ) [place] 06/13/2025 Patient Age/Sex Location Account Attending Physician PATRIA JOHNSON 54/F LABSPEC [id number] Dr. Yannick Bourne MD CPT:71178l3 Patient Age/Sex Location Account Attending Physician PATRIA JOHNSON 54/F LABSPEC [id number] Dr. Yannick Bourne MD Signed (signature on file) Dr. Debbie Mcarthur MD 06/19/25 0948 Normal [place] Comment on above: Performed By: #### M 100.3000, L100.0100, L3890.0381, L3890.6102, M100.2000, L500.3400, L3890.6202 #### [facility] [address] [place], [address] Plastic Surgery Visit Report on 06-05-2025 Plastic Surgery Visit Report [facility] Plastic Reconstructive Surgery [address] [place] [address] OFFICE VISIT Date of Service: 06/05/25 MR#: [id number] Acct: [id number] Name: PTARIA JOHNSON Rep #: [id number] : 1970 Provider: Dr. Yannick Bourne MD Age/Sex: 54/F Location: [facility] Status: Signed Intake Vital Signs 05/30/25 11:28 06/05/25 11:42 Height 5 ft 4 in BP 122/82 H 118/85 H Blood Pressure Location Lt brachial Rt brachial Position Sitting Sitting Respiration 18 18 Pulse 100 110 H Pulse Source Monitor Temp 98.6 F Temp Source Temporal Pulse Oximetry (%) 97 98 Oxygen Delivery Method room air room air Intake Visit Reasons: 1 W FU Chief Complaint: post op breast reduction Is patient in pain?: No Allergies erythromycin base Allergy (Verified 06/05/25 11:41) Anaphylaxis penicillin V Allergy (Verified 06/05/25 11:41) unknown Sulfa (Sulfonamide Antibiotics) Allergy (Verified 06/05/25 11:41) Anaphylaxis Medications ???Medication ???Instructions ???Recorded ???Confirmed ???Type lisinopril 5 mg tablet 5 mg PO QDAY bp 01/16/18 06/05/25 History potassium chloride 10 mEq 10 meq PO QDAY supplement 01/16/18 06/05/25 History tablet,extended release (Klor-Con) fluoxetine 40 mg capsule (Prozac) 40 mg PO DAILY mood 01/06/2205/23 History levonorgestrel 20.4 mcg/24 hr (up 1 device intrauterine ONCE child 01/06/22 06/05/25 History to 8 yrs) 52 mg intrauterine device (Liletta) bupropion HCl 150 mg 24 hr tablet, 150 mg PO QDAY mood 12/26/2405/23 History extended release tirzepatide 2.5 mg/0.5 mL 2.5 mg subcut FR weight lose 12/2606/05/25 History subcutaneous pen injector (Mounjaro) Held on 05/26/25. Instructions: Ordered lansoprazole 15 mg capsule,delayed 15 mg PO DAILY gerd 03/31/2505/23 History release (Prevacid 24Hr) valacyclovir 500 mg tablet 500 mg PO BID PRN cold sores 03/3106/05/25 History (Valtrex) hyoscyamine sulfate 0.125 mg tablet 0.125 mg PO Q12H PRN PRN dyspep jaclyn 05/05/25 06/05/25 History ciprofloxacin HCl 500 mg tablet 500 mg PO Q12H 7 days #14 tabs 06/05/25 Rx doxycycline hyclate 100 mg capsule 100 mg PO BID 7 days #14 caps 06/05/25 Rx Subjective Details: Doing well overall. 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 Right anterior vertical incision breast wound healing well with minimal necrotic debris today, cleaned in clinic today. Underlying granulation tissue forming and wound filling in Dressings reapplied Coding Level of Care Code Global Post Op Diagnoses Status post breast reduction Z98.890 [facility] Medical History Depression Anxiety Diabetes Arthritis Anemia Easy bruising History of diverticulitis History of IBS Non-smoker Shortness of breath on exertion Contraceptive management GERD (gastroesophageal reflux disease) Vitamin D deficiency Hyperhidrosis Hypertension Surgical History Hx of LASIK S/P cholecystectomy H/O: Family History Mother Hypertension CVA (cerebral vascular accident) Father Hypertension Social History household members: spouse housing: house Smoking Status: Never smoker alcohol intake: never substance use type: does not use caffeine: Yes what type of physical activity do you participate in: none seatbelt use: always do you feel safe at home: Yes 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 Normal [place] Comment on above: Performed By: #### M 100.3000, L100.0100, L3890.6301, L3890.6102, M100.2000, L500.3400, L3890.6202 #### [facility] [address] [place], [address] Plastic Surgery Visit Report on 05-30-2025 Plastic Surgery Visit Report [facility] Plastic Reconstructive Surgery [address], [address] [place] [address] OFFICE VISIT Date of Service: 05/30/25 MR#: [id number] Acct: [id number] Name: PATRIA JOHNSON Rep #: [id number] : 1970 Provider: Dr. Yannick Bourne MD Age/Sex: 54/F Location: [facility] Status: Signed Intake Vital Signs 05/12/25 15:59 05/23/25 10:30 05/27/25 14:28 05/30/25 11:28 Height 5 ft 4 in 5 ft 4 in 5 ft 4 in 5 ft 4 in BP 122/82 H Blood Pressure Location Lt brachial Position Sitting Respiration 18 Pulse 100 Temp 98.6 F Temp Source Temporal Pulse Oximetry (%) 97 Oxygen Delivery Method room air Intake Visit Reasons: 1 W FU Chief Complaint: post op breast reduction Accompanied by: Is patient in pain?: No Allergies erythromycin base Allergy (Verified 05/30/25 11:29) Anaphylaxis penicillin V Allergy (Verified 05/30/25 11:29) unknown Sulfa (Sulfonamide Antibiotics) Allergy (Verified 05/30/25 11:29) Anaphylaxis Medications ???Medication ???Instructions ???Recorded ???Confirmed ???Type lisinopril 5 mg tablet 5 mg PO QDAY bp 01/16/18 05/30/25 History potassium chloride 10 mEq 10 meq PO QDAY supplement 01/16/18 05/30/25 History tablet,extended release (Klor-Con) fluoxetine 40 mg capsule (Prozac) 40 mg PO DAILY mood 01/06/22 08/11/23 History levonorgestrel 20.4 mcg/24 hr (up 1 device intrauterine ONCE child 01/06/22 05/30/25 History to 8 yrs) 52 mg intrauterine device (Liletta) bupropion HCl 150 mg 24 hr tablet, 150 mg PO QDAY mood 12/26/2411/23 History extended release tirzepatide 2.5 mg/0.5 mL 2.5 mg subcut FR weight lose 12/2605/30/25 History subcutaneous pen injector (Devenuntom) Held on 05/26/25. Instructions: MD Ordered lansoprazole 15 mg capsule,delayed 15 mg PO DAILY gerd 03/31/2511/23 History release (Prevacid 24Hr) valacyclovir 500 mg tablet 500 mg PO BID PRN cold sores 03/3105/30/25 History (Valtrex) hyoscyamine sulfate 0.125 mg tablet 0.125 mg PO Q12H PRN PRN dyspep jaclyn 05/05/25 05/30/25 History ciprofloxacin HCl 500 mg tablet 500 mg PO Q12H 7 days #14 tabs 05/30/25 Rx doxycycline hyclate 100 mg capsule 100 mg PO BID 7 days #14 caps 05/30/25 Rx Subjective Details: Doing well overall No fevers or chills at home. 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 Good breast shape overall Coding Level of Care Code Global Post Op Diagnoses Postoperative wound cellulitis T81.49XA Status post breast reduction Z98.890 [facility] Medical History Depression Anxiety Diabetes Arthritis Anemia Easy bruising History of diverticulitis History of IBS Non-smoker Shortness of breath on exertion Contraceptive management GERD (gastroesophageal reflux disease) Vitamin D deficiency Hyperhidrosis Hypertension Surgical History Hx of LASIK S/P cholecystectomy H/O: Family History Mother Hypertension CVA (cerebral vascular accident) Father Hypertension Social History household members: spouse housing: house Smoking Status: Never smoker alcohol intake: never substance use type: does not use caffeine: Yes what type of physical activity do you participate in: none seatbelt use: always do you feel safe at home: Yes 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, DENIES EDIBLES, DENIES MARIJUANA USE, NO FAMILY HISTORY OF BLOOD CLOTS Assessment and Plan (No Qualifiers) Assessment and Plan (1) Postoperative wound cellulitis: Status: Acute Plan: Continue dressing changes with twice daily wet-to-dry dressings Follow-up with me in 1 week (2) Status post breast reduction: Status: Acute 05/30/251914 Date Yannick Pena Signature: Date (if applicable) CC: Normal [place] CBC W/Diff, Automatedon - Absolute Neut Normal 2.0-7.7 [place] Comment on above: Result Comment: Canc elled via OM: Order cancelled - Patient discharged Performed By: #### M 100.3000, L100.0100, L3890.6301, L3890.6102, M100.2000, L500.3400, L3890.6202 #### [facility] [address] [place], [address] HCT Normal 37-47 [place] Comment on above: Result Comment: Canc elled via OM: Order cancelled - Patient discharged Performed By: #### M 100.3000, L100.0100, L3890.6301, L3890.6102, M100.2000, L500.3400, L3890.6202 #### [facility] [address] [place], [address] HGB Normal 12.0-15.0 [place] Comment on above: Result Comment: Canc elled via OM: Order cancelled - Patient discharged Performed By: #### M 100.3000, L100.0100, L3890.6301, L3890.6102, M100.2000, L500.3400, L3890.6202 #### [facility] [address] [place], [address] MCH Normal 27.0-32.0 [place] Comment on above: Result Comment: Canc elled via OM: Order cancelled - Patient discharged Performed By: #### M 100.3000, L100.0100, L3890.6301, L3890.6102, M100.2000, L500.3400, L3890.6202 #### [facility] [address] [place], [address] MCHC Normal 32-36 [place] Comment on above: Result Comment: Canc elled via OM: Order cancelled - Patient discharged Performed By: #### M 100.3000, L100.0100, L3890.6301, L3890.6102, M100.2000, L500.3400, L3890.6202 #### [facility] [address] [place], [address] MCV Normal 81-99 [place] Comment on above: Result Comment: Canc elled via OM: Order cancelled - Patient discharged Performed By: #### M 100.3000, L100.0100, L3890.6301, L3890.6102, M100.2000, L500.3400, L3890.6202 #### [facility] [address] [place], [address] NEUT% Normal 47-70 [place] Comment on above: Result Comment: Canc elled via OM: Order cancelled - Patient discharged Performed By: #### M 100.3000, L100.0100, L3890.6301, L3890.6102, M100.2000, L500.3400, L3890.6202 #### [facility] [address] [place], [address] PLT Normal 150-450 [place] Comment on above: Result Comment: Canc elled via OM: Order cancelled - Patient discharged Performed By: #### M 100.3000, L100.0100, L3890.6301, L3890.6102, M100.2000, L500.3400, L3890.6202 #### [facility] [address] [place], [address] RBC Normal 4.2-5.4 [place] Comment on above: Result Comment: Canc elled via OM: Order cancelled - Patient discharged Performed By: #### M 100.3000, L100.0100, L3890.6301, L3890.6102, M100.2000, L500.3400, L3890.6202 #### [facility] [address] [place], [address] RDW CV Normal 11.6-14.6 [place] Comment on above: Result Comment: Canc elled via OM: Order cancelled - Patient discharged Performed By: #### M 100.3000, L100.0100, L3890.6301, L3890.6102, M100.2000, L500.3400, L3890.6202 #### [facility] [address] [place], [address] RDW SD Normal 35.1-43.9 [place] Comment on above: Result Comment: Canc elled via OM: Order cancelled - Patient discharged Performed By: #### M 100.3000, L100.0100, L3890.6301, L3890.6102, M100.2000, L500.3400, L3890.6202 #### [facility] [address] [place], [address] WBC Normal 4.4-11.0 [place] Comment on above: Result Comment: Canc elled via OM: Order cancelled - Patient discharged Performed By: #### M 100.3000, L100.0100, L3890.6301, L3890.6102, M100.1999, L500.3400, L3890.6202 #### [facility] [address] [place], [address] Anion gap in Serum or Plasma Ordered By: Yannick Bourne on 05-28-2025 Anion gap [Moles/Vol] 12 mmol/L 5-15 [facility] BUN/creatinine ratioOrdered By: Yannick Bourne on 05-28-2025 Urea nitrogen/Creatinine [Mass ratio] 14.7 mg/mg 10-20 [place] Bilirubin, totalOrdered By: Yannick Bourne on 05-28-2025 Bilirubin [Mass/Vol] 0.52 mg/dL 0.00-1.30 [facility] Carbon dioxide, total [Moles /volume] in Central venous bloodOrdered By: Yannick Bourne on 05-28-2025 CO2 [Moles/Vol] 25.7 mmol/L 21.0-32.0 [place] Chloride assayOrdered By: Mray Bourne on 05-28-2025 Chloride [Moles/Vol] 104 mmol/L 98-108 [facility] Comprehensive Metabolic Prof ilon 05-28-2025 Albumin [Mass/Vol] 3.7 g/dL Normal 3.5-5.0 [facility] Comment on above: Performed By: #### L 500.4050 #### [facility] [address] [place], [address] Albumin/Globulin [Mass ratio] 1.7 {ratio} Normal 0.9-2.4 [place] Comment on above: Performed By: #### L 500.4050 #### [facility] [address] [place], [address] ALK PHOS 70 U/L Normal 35-104 [place] Comment on above: Performed By: #### L 500.4050 #### [facility] [address] [place], [address] ALT [Catalytic activity/Vol] 13 U/L Normal <=34 [place] Comment on above: Performed By: #### L 500.4050 #### [facility] [address] [place], [address] AST [Catalytic activity/Vol] 16 U/L Normal <=31 [facility] Comment on above: Performed By: #### L 500.4050 #### [facility] [address] [place], [address] Bilirubin [Mass/Vol] 0.52 mg/dL Normal 0.00-1.30 [facility] Comment on above: Performed By: #### L 500.4050 #### [facility] [address] [place], [address] BUN/CRE 14.7 RATIO Normal 10-20 [place] Comment on above: Performed By: #### L 500.4050 #### [facility] [address] [place], [address] Calcium [Mass/Vol] 8.6 mg/dL Normal 7.6-11.0 [facility] Comment on above: Performed By: #### L 500.4050 #### [facility] [address] [place], [address] Chloride [Moles/Vol] 104 mmol/L Normal 98-108 [facility] Comment on above: Performed By: #### L 500.4050 #### [facility] [address] [place], [address] CO2 [Moles/Vol] 25.7 mmol/L Normal 21.0-32.0 [place] Comment on above: Performed By: #### L 500.4050 #### [facility] [address] [place], [address] Creatinine [Mass/Vol] 0.82 mg/dL Normal 0.70-1.20 [facility] Comment on above: Performed By: #### L 500.4050 #### [facility] [address] [place], [address] ECRCL 95.67 ml/min Normal 50-250 [place] Comment on above: Performed By: #### L 500.4050 #### [facility] [address] [place], [address] GAP 12 Normal 5-15 [facility] Comment on above: Performed By: #### L 500.4050 #### [facility] [address] [place], [address] GFR/1.73 sq M.predicted among non-blacks MDRD (S/P/Bld) [Vol rate/Area] 86 mL/min/{1.73_m2} Normal >60 [facility] Comment on above: Result Comment: mL/m in/1.73m2 CKD-EPI Creatinine Equation (2020) Performed By: #### L 500.4050 #### [facility] [address] [place], [address] Globulin (S) [Mass/Vol] 2.2 g/dL Normal 2.2-4.[address] [facility] Comment on above: Performed By: #### L 500.4050 #### [facility] [address] [place], [address] Glucose [Mass/Vol] 100 mg/dL High 70-99 [facility] Comment on above: Performed By: #### L 500.4050 #### [facility] [address] [place], [address] Potassium [Moles/Vol] 3.3 mmol/L Normal 3.3-5.1 [facility] Comment on above: Performed By: #### L 500.4050 #### [facility] [address] [place], [address] Sodium [Moles/Vol] 142 mmol/L Normal 133-145 [facility] Comment on above: Performed By: #### L 500.4050 #### [facility] [address] [place], [address] T PROT 5.9 g/dL Normal 5.9-8.4 [place] Comment on above: Performed By: #### L 500.4050 #### [facility] [address] [place], [address] Urea nitrogen [Mass/Vol] 12 mg/dL Normal 4-19 [place] Comment on above: Performed By: #### L 500.4050 #### [facility] [address] [place], [address] Glomerular filtration rate ( GFR) estimation/1.73 sq m using serum, plasma, or whole bOrdered By: Yannick Bourne on 05-28-2025 GFR/1.73 sq M.predicted among non-blacks MDRD (S/P/Bld) [Vol rate/Area] 86 mL/min/{1.73_m2} >60 [facility] Comment on above: mL/min/1.73m2 CKD-EP I Creatinine Equation (2020) Laboratory - Chemistry and C hemistry - challengeOrdered By: Yannick Bourne on 05-28-2025 AST [Catalytic activity/Vol] 16 U/L <32 [facility] Potassium measurement (mass/ volume)Ordered By: Yannick Bourne on 05-28-2025 Potassium (Unsp spec) [Mass/Vol] 3.3 mmol/L 3.3-5.1 [facility] Serum creatinine measurement (mass/volume)Ordered By: Yannick Bourne on 05-28-2025 Creatinine [Mass/Vol] 0.82 mg/dL 0.70-1.20 [facility] Serum globulin measurementOr dered By: Yannick Bourne on 05-28-2025 Globulin (S) [Mass/Vol] 2.2 g/dL 2.2-4.2 [facility] Serum glucose measurement (m ass/volume)Ordered By: Yannick Bourne on 05-28-2025 Glucose [Mass/Vol] 100 mg/dL High 70-99 [facility] Serum or plasma alanine coffey otransferase (ALT) measurementOrdered By: Yannick Bourne on 05-28-2025 ALT [Catalytic activity/Vol] 13 U/L <35 [facility] Serum or plasma albumin madyson urement (mass/volume)Ordered By: Yannick Bourne on 05-28-2025 Albumin [Mass/Vol] 3.7 g/dL 3.5-5.0 [facility] Serum or plasma albumin/glob ulin mass ratioOrdered By: Yannick Bourne on 05-28-2025 Albumin/Globulin [Mass ratio] 1.7 {ratio} 0.9-2.4 [facility] Serum or plasma alkaline rolando sphatase measurementOrdered By: Yannick Bourne on 05-28-2025 ALP [Catalytic activity/Vol] 70 U/L 35-104 [facility] Serum or plasma calcium madyson urement (mass/volume)Ordered By: Yannick Bourne on 05-28-2025 Calcium [Mass/Vol] 8.6 mg/dL 7.6-11.0 [facility] Serum or plasma urea nitroge n measurement (mass/volume)Ordered By: Yannick Bourne on 05-28-2025 Urea nitrogen [Mass/Vol] 12 mg/dL 4-19 [facility] Sodium levelOrdered By: Lei Bourne on 05-28-2025 Sodium [Moles/Vol] 142 mmol/L 133-145 [facility] Total proteinOrdered By: Real Bourne on 05-28-2025 Protein [Mass/Vol] 5.9 g/dL 5.9-8.4 [facility] Absolute lymphocyte countOrd ered By: ED PROVIDER on 05-26-2025 Lymphocytes Auto (Unsp spec) [#/Vol] 3.21 10*3/uL 0.83-4.51 [facility] Absolute neutrophil countOrd ered By: ED PROVIDER on 05-26-2025 Neutrophils (Bld) [#/Vol] 4.7 10*3/uL 2.0-7.7 [facility] Anion gap in Serum or Plasma Ordered By: ED PROVIDER on 05-26-2025 Anion gap [Moles/Vol] 13 mmol/L 5-15 [facility] Automated lymphocyte count a s percentage of total leukocytesOrdered By: ED PROVIDER on 05-26-2025 Lymphocytes/100 WBC Auto (Unsp spec) 34.1 % 19-41 [facility] BUN/creatinine ratioOrdered By: ED PROVIDER on 05-26-2025 Urea nitrogen/Creatinine [Mass ratio] 14.2 mg/mg 10-20 [facility] Basophil percentageOrdered B y: ED PROVIDER on 05-26-2025 Basophils/100 WBC (Bld) 0.7 % 0-1 [facility] Bilirubin, totalOrdered By: ED PROVIDER on 05-26-2025 Bilirubin [Mass/Vol] 0.50 mg/dL 0.00-1.30 [facility] Blood cultureOrdered By: Kali Calhoun on 05-26-2025 Bacteria identified Cx Nom (Bld) No growth in 5 days. [facility] Blood cultureOrdered By: ED PROVIDER on 05-26-2025 Bacteria identified Cx Nom (Bld) No growth in 5 days. [facility] CBC W/Diff, Automatedon 04-30 Absolute Lymph 3.21 X10 3/uL Normal 0.83-4.51 [facility] Comment on above: Performed By: #### L 500.4050, M200.1000, L100.0100, L503.6005 #### [facility] [address] [place], [address] Absolute Neut 4.7 X10 3/uL Normal 2.0-7.7 [facility] Comment on above: Performed By: #### L 500.4050, M200.1000, L100.0100, L503.6005 #### [facility] [address] [place], [address] Basophils/100 WBC (Bld) 0.7 % Normal 0-1 [facility] Comment on above: Performed By: #### L 500.4050, M200.1000, L100.0100, L503.6005 #### [facility] [address] [place], [address] Eosinophils/100 WBC (Bld) 5.3 % High 0-5 [facility] Comment on above: Performed By: #### L 500.4050, M200.1000, L100.0100, L503.6005 #### [facility] [address] [place], [address] Erythrocyte distribution width (RBC) [Ratio] 13.4 % Normal 11.6-14.6 [facility] Comment on above: Performed By: #### L 500.4050, M200.1000, L100.0100, L503.6005 #### [facility] [address] [place], [address] Hematocrit (Bld) [Volume fraction] 38.4 % Normal 37-47 [facility] Comment on above: Performed By: #### L 500.4050, M200.1000, L100.0100, L503.6005 #### [facility] [address] [place], [address] Hemoglobin (Bld) [Mass/Vol] 13.0 g/dL Normal 12.0-15.0 [facility] Comment on above: Performed By: #### L 500.4050, M200.1000, L100.0100, L503.6005 #### [facility] [address] [place], [address] IG% 0.600 Normal 0.0-0.9 [facility] Comment on above: Result Comment: IG% - Immature Granulocytes (promyelocytes, myelocytes and metamyelocytes) > 1% indicates that a LEFT SHIFT is Present. Performed By: #### L 500.4050, M200.1000, L100.0100, L503.6005 #### [facility] [address] [place], [address] Lymphocytes/100 WBC (Bld) 34.1 % Normal 19-41 [facility] Comment on above: Performed By: #### L 500.4050, M200.1000, L100.0100, L503.6005 #### [facility] [address] [place], [address] MCH (RBC) [Entitic mass] 29.2 pg Normal 27.0-32.0 [facility] Comment on above: Performed By: #### L 500.4050, M200.1000, L100.0100, L503.6005 #### [facility] [address] [place], [address] MCHC (RBC) [Mass/Vol] 33.9 g/dL Normal 32-36 [facility] Comment on above: Performed By: #### L 500.4050, M200.1000, L100.0100, L503.6005 #### [facility] [address] [place], [address] MCV (RBC) [Entitic vol] 86.3 fL Normal 81-99 [facility] Comment on above: Performed By: #### L 500.4050, M200.1000, L100.0100, L503.6005 #### [facility] [address] [place], [address] Monocytes/100 WBC (Bld) 8.9 % Normal 0-10 [facility] Comment on above: Performed By: #### L 500.4050, M200.1000, L100.0100, L503.6005 #### [facility] [address] [place], [address] Neutrophils/100 WBC (Bld) 50.4 % Normal 47-70 [facility] Comment on above: Performed By: #### L 500.4050, M200.1000, L100.0100, L503.6005 #### [facility] [address] [place], [address] Nucleated RBC (Bld) [#/Vol] 0 10*3/uL Normal 0-5 [facility] Comment on above: Performed By: #### L 500.4050, M200.1000, L100.0100, L503.6005 #### [facility] [address] [place], [address] Platelet mean volume (Bld) [Entitic vol] 9.5 fL Normal 6.2-12.0 [facility] Comment on above: Performed By: #### L 500.4050, M200.1000, L100.0100, L503.6005 #### [facility] [address] [place], [address] Platelets (Bld) [#/Vol] 395 10*3/uL Normal 150-450 [facility] Comment on above: Performed By: #### L 500.4050, M200.1000, L100.0100, L503.6005 #### [facility] [address] [place], [address] RBC (Bld) [#/Vol] 4.45 10*6/uL Normal 4.2-5.4 [facility] Comment on above: Performed By: #### L 500.4050, M200.1000, L100.0100, L503.6005 #### [facility] [address] [place], [address] RDW SD 41.6 fl Normal 35.1-43.9 [facility] Comment on above: Performed By: #### L 500.4050, M200.1000, L100.0100, L503.6005 #### [facility] [address] [place], [address] WBC (Bld) [#/Vol] 9.4 10*3/uL Normal 4.4-11.0 [facility] Comment on above: Performed By: #### L 500.4050, M200.1000, L100.0100, L503.6005 #### [facility] [address] [place], [address] Carbon dioxide, total [Moles /volume] in Central venous bloodOrdered By: ED PROVIDER on 05-26-2025 CO2 [Moles/Vol] 24.6 mmol/L 21.0-32.0 [facility] Chloride assayOrdered By: ED PROVIDER on 05-26-2025 Chloride [Moles/Vol] 105 mmol/L 98-108 [facility] Comprehensive Metabolic Prof ilon 05-26-2025 Albumin [Mass/Vol] 3.9 g/dL Normal 3.5-5.0 [facility] Comment on above: Performed By: #### M 100.3000, L100.0100, L3890.6301, L3890.6102, M100.2000, L500.3400, L3890.6202 #### [facility] [address] [place], [address] Albumin/Globulin [Mass ratio] 1.5 {ratio} Normal 0.9-2.4 [facility] Comment on above: Performed By: #### M 100.3000, L100.0100, L3890.6301, L3890.6102, M100.2000, L500.3400, L3890.6202 #### [facility] [address] [place], [address] ALK PHOS 72 U/L Normal 35-104 [facility] Comment on above: Performed By: #### M 100.3000, L100.0100, L3890.6301, L3890.6102, M100.2000, L500.3400, L3890.6202 #### [facility] [address] [place], [address] ALT [Catalytic activity/Vol] 16 U/L Normal <=34 [facility] Comment on above: Performed By: #### M 100.3000, L100.0100, L3890.6301, L3890.6102, M100.2000, L500.3400, L3890.6202 #### [facility] [address] [place], [address] AST [Catalytic activity/Vol] 23 U/L Normal <=31 [facility] Comment on above: Result Comment: Hemo lysis present, Results??could be affected. ?? Performed By: #### M 100.3000, L100.0100, L3890.6301, L3890.6102, M100.2000, L500.3400, L3890.6202 #### [facility] [address] [place], [address] Bilirubin [Mass/Vol] 0.50 mg/dL Normal 0.00-1.30 [facility] Comment on above: Performed By: #### M 100.3000, L100.0100, L3890.6301, L3890.6102, M100.2000, L500.3400, L3890.6202 #### [facility] [address] [place], [address] BUN/CRE 14.2 RATIO Normal 10-20 [facility] Comment on above: Performed By: #### M 100.3000, L100.0100, L3890.6301, L3890.6102, M100.2000, L500.3400, L3890.6202 #### [facility] [address] [place], [address] Calcium [Mass/Vol] 9.2 mg/dL Normal 7.6-11.0 [facility] Comment on above: Performed By: #### M 100.3000, L100.0100, L3890.6301, L3890.6102, M100.2000, L500.3400, L3890.6202 #### [facility] [address] [place], [address] Chloride [Moles/Vol] 105 mmol/L Normal 98-108 [facility] Comment on above: Performed By: #### M 100.3000, L100.0100, L3890.6301, L3890.6102, M100.1999, L500.3400, L3890.6202 #### [facility] [address] [place], [address] CO2 [Moles/Vol] 24.6 mmol/L Normal 21.0-32.0 [facility] Comment on above: Performed By: #### M 100.3000, L100.0100, L3890.6301, L3890.6102, M100.1999, L500.3400, L3890.6202 #### [facility] [address] [place], [address] Creatinine [Mass/Vol] 0.83 mg/dL Normal 0.70-1.20 [facility] Comment on above: Performed By: #### M 100.3000, L100.0100, L3890.6301, L3890.6102, M100.2000, L500.3400, L3890.6202 #### [facility] [address] [place], [address] ECRCL 94.03 ml/min Normal 50-250 [facility] Comment on above: Performed By: #### M 100.3000, L100.0100, L3890.6301, L3890.6102, M100.2000, L500.3400, L3890.6202 #### [facility] [address] [place], [address] GAP 13 Normal 5-15 [facility] Comment on above: Performed By: #### M 100.3000, L100.0100, L3890.6301, L3890.6102, M100.2000, L500.3400, L3890.6202 #### [facility] [address] [place], [address] GFR/1.73 sq M.predicted among non-blacks MDRD (S/P/Bld) [Vol rate/Area] 84 mL/min/{1.73_m2} Normal >60 [facility] Comment on above: Result Comment: mL/m in/1.73m2 CKD-EPI Creatinine Equation (2020) Performed By: #### M 100.3000, L100.0100, L3890.6301, L3890.6102, M100.2000, L500.3400, L3890.6202 #### [facility] [address] [place], [address] Globulin (S) [Mass/Vol] 2.6 g/dL Normal 2.2-4.[address] [facility] Comment on above: Performed By: #### M 100.3000, L100.0100, L3890.6301, L3890.6102, M100.2000, L500.3400, L3890.6202 #### [facility] [address] [place], [address] Glucose [Mass/Vol] 135 mg/dL High 70-99 [facility] Comment on above: Performed By: #### M 100.3000, L100.0100, L3890.6301, L3890.6102, M100.2000, L500.3400, L3890.6202 #### [facility] [address] [place], [address] Potassium [Moles/Vol] 4.0 mmol/L Normal 3.3-5.1 [facility] Comment on above: Result Comment: Hemo lysis present, Results??could be affected. ?? Performed By: #### M 100.3000, L100.0100, L3890.6301, L3890.6102, M100.2000, L500.3400, L3890.6202 #### [facility] [address] [place], [address] Sodium [Moles/Vol] 143 mmol/L Normal 133-145 [facility] Comment on above: Performed By: #### M 100.3000, L100.0100, L3890.6301, L3890.6102, M100.2000, L500.3400, L3890.6202 #### [facility] [address] [place], [address] T PROT 6.5 g/dL Normal 5.9-8.4 [facility] Comment on above: Performed By: #### M 100.3000, L100.0100, L3890.6301, L3890.6102, M100.2000, L500.3400, L3890.6202 #### [facility] [address] [place], [address] Urea nitrogen [Mass/Vol] 12 mg/dL Normal 4-19 [facility] Comment on above: Performed By: #### M 100.3000, L100.0100, L3890.6301, L3890.6102, M100.2000, L500.3400, L3890.6202 #### [facility] [address] [place], [address] Consultation - Surgicalon Consultation - Surgical [facility] Medical Records Department [address] [place] [address] Consultation - Surgical 05/26/252043 MR#: [id number] Acct: [id number] Name: PATRIA JOHNSON Rep #: [id number] : 1970 54 From: Yannick Bourne MD PCP: Clemencia Guadalupe DO Status:PRE ER Location: ED Assessment Plan Assessment/Plan (1) Status post breast reduction: PLAN: Given redness, will admit overnight for cellulitis. IV Clindamycin and ciprofloxacin Lovenox and SCDs for DVT pxx. WTD dressings BID to the right and left breast wounds . Patient happy with the plan HPI Consult Data Date of Consult: 05/26/25 HPI Narrative HPI Narrative: PATRIA JOHNSON is a 54 YO FM who presents with malaise and breast redness after breast reduction on 07 May 2025. Reports that it started 2 days ago. Tonight in the ED, WBC 10 K. No fever, stable VS. PFSH Medical History Depression Anxiety Diabetes Arthritis Anemia Easy bruising History of diverticulitis History of IBS Non-smoker Shortness of breath on exertion Contraceptive management GERD (gastroesophageal reflux disease) Vitamin D deficiency Hyperhidrosis Hypertension Home Medications ???Medication ???Instructions ???Recorded ???Last Taken ???Type lisinopril 5 mg tablet 5 mg PO QDAY 01/16/18 05/06/25 18: 00 History potassium chloride 10 mEq 10 meq PO QDAY 01/16/18 05/06/25 1 8:00 History tablet,extended release (Klor-Con) fluoxetine 40 mg capsule (Prozac) 40 mg PO DAILY 01/06/22 05/06/25 16:00 History levonorgestrel 20.4 mcg/24 hr (up 1 device intrauterine ONCE Unknown History to 8 yrs) 52 mg intrauterine device (Liletta) bupropion HCl 150 mg 24 hr tablet, 150 mg PO QDAY 12/26/24 05/06/25 06:00 History extended release tirzepatide 2.5 mg/0.5 mL 2.5 mg subcut FR 12/26/24 04/18/25 History subcutaneous pen injector (Devenuntom) lansoprazole 15 mg capsule,delayed 15 mg PO DAILY 03/31/25 05/06/25 18:00 History release (Prevacid 24Hr) valacyclovir 500 mg tablet 500 mg PO BID PRN cold sores 03/31 Unknown History (Valtrex) hyoscyamine sulfate 0.125 mg tablet 0.125 mg PO Q12H PRN PRN dyspep jaclyn 05/05/25 05/06/25 18:00 History clindamycin HCl 150 mg capsule 150 mg PO TID 5 days #15 caps 07/24 Unknown Rx (Cleocin HCl) ondansetron 4 mg disintegrating 4 mg PO Q8H PRN nausea and 5 Unknown Rx tablet vomiting #10 tabs Allergy/AdvReac Type Severity Reaction Status Date / Time erythromycin base Allergy Anaphylaxis Verified 05/26/25 20:15 penicillin V Allergy unknown Verified 05/26/25 20:15 Sulfa (Sulfonamide Allergy Anaphylaxis Verified 05/26/25 20:15 Antibiotics) Family History Mother Hypertension CVA (cerebral vascular accident) Father Hypertension Surgical History Hx of LASIK S/P cholecystectomy H/O: Social History (Updated 05/26/25 @ 21:39 by Liv Wilkins) household members: spouse housing: house Smoking Status: Never smoker alcohol intake: never substance use type: does not use caffeine: Yes what type of physical activity do you participate in: none seatbelt use: always do you feel safe at home: Yes 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 There is some redness along the inferior incisions bilaterally. No induration. No drainage. Lab / Micro Data 05/26/25 20:51 05/26/25 20:51 Charges/Coding Procedures Integumentary [id number]: [id number] Global Visit 05/26/25 2154 Cosigner Signature (if applicable): CC: Clemencia Guadalupe DO Signed Normal [facility] Summary on 05-26-2025 Emergency Department Summary [facility] Medical Records Department [address] [place] [address] Emergency Department Summary 05/26/25 MR#: [id number] Acct: [id number] Name: PATRIA JOHNSON Rep #: [id number] : 1970 54 From: Chris Montano PCP: Clemencia Guadalupe DO Status:ADM IN Location: [place] [address] HPI History of Present Illness Chief Complaint: General Illness Informant: patient and spouse/S.O. Narrative Narrative: Sent in by her plastic surgeon for evaluation. 19-day postop breast reduction. Last couple days not feeling well had fever and chills at home. No cough. No urinary symptoms. No vomiting or diarrhea. Allergies to penicillin and sulfa with breathing issues. Temp checked this evening 99. PFSH PFSH Medical History Depression Anxiety Diabetes Arthritis Anemia Easy bruising History of diverticulitis History of IBS Non-smoker Shortness of breath on exertion Contraceptive management GERD (gastroesophageal reflux disease) Vitamin D deficiency Hyperhidrosis Hypertension Home Medications ???Medication ???Instructions ???Recorded ???Last Taken ???Type lisinopril 5 mg tablet 5 mg PO QDAY bp 01/16/18 05/06/25 18:00 History potassium chloride 10 mEq 10 meq PO QDAY supplement 01/16/18 05/06/25 18:00 History tablet,extended release (Klor-Con) fluoxetine 40 mg capsule (Prozac) 40 mg PO DAILY mood 01/06/22 07/06/23 16:00 History levonorgestrel 20.4 mcg/24 hr (up 1 device intrauterine ONCE child 01/06/22 Unknown History to 8 yrs) 52 mg intrauterine device (Liletta) bupropion HCl 150 mg 24 hr tablet, 150 mg PO QDAY mood 12/26/2406/23 06:00 History extended release tirzepatide 2.5 mg/0.5 mL 2.5 mg subcut FR weight lose 12/2604/18/25 History subcutaneous pen injector (Kimmy) Held on 05/26/25. Instructions: MD Ordered lansoprazole 15 mg capsule,delayed 15 mg PO DAILY gerd 03/31/2506/23 18:00 History release (Prevacid 24Hr) valacyclovir 500 mg tablet 500 mg PO BID PRN cold sores 03/31 Unknown History (Valtrex) hyoscyamine sulfate 0.125 mg tablet 0.125 mg PO Q12H PRN PRN dyspep jaclyn 05/05/25 05/06/25 18:00 History Allergy/AdvReac Type Severity Reaction Status Date / Time erythromycin base Allergy Anaphylaxis Verified 05/26/25 20:15 penicillin V Allergy unknown Verified 05/26/25 20:15 Sulfa (Sulfonamide Allergy Anaphylaxis Verified 05/26/25 20:15 Antibiotics) Family History Mother Hypertension CVA (cerebral vascular accident) Father Hypertension Surgical History Hx of LASIK S/P cholecystectomy H/O: Social History household members: spouse housing: house Smoking Status: Never smoker alcohol intake: never substance use type: does not use caffeine: Yes what type of physical activity do you participate in: none seatbelt use: always do you feel safe at home: Yes 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, DENIES EDIBLES, DENIES MARIJUANA USE, NO FAMILY HISTORY OF BLOOD CLOTS ROS ROS ED Constitutional Constitutional ED: Reports chills and fever(s) Cardiovascular Cardiovascular: Denies chest pain Respiratory/Chest Respiratory/Chest: Denies cough or dyspnea Gastrointestinal Gastrointestinal: Denies diarrhea or vomiting Genitourinary Genitourinary ED: Denies dysuria Musculoskeletal Musculoskeletal: Denies none Integumentary Reports rash; Denies wounds Neurologic Neurologic: Denies weakness EXAM Physical Exam Const Vital Signs: 05/26/25 20:15 05/26/25 20:17 05/26/25 21:17 Temperature 99.5 F H 99.5 F H Temperature Source Oral Oral Pulse Rate 91 91 Respiratory Rate 18 18 Respiratory Effort Respiratory Pattern Blood Pressure 136/90 H 136/90 H Blood Pressure Mean 105 105 Pulse Ox 99 99 99 Oxygen Delivery Method Room Air Room Air Room Air 05/26/25 21:17 05/26/25 21:17 05/26/25 21:17 Temperature 99.5 F H Temperature Source Oral Pulse Rate 100 Respiratory Rate 13 16 Respiratory Effort Normal Non-Labored Respiratory Pattern Normal Blood Pressure 132/89 H Blood Pressure Mean 103 Pulse Ox 99 98 Oxygen Delivery Method Room Air Positive well nourished and well developed General Appearance ED: well developed HEENT normocephalic and atraumatic Eyes General Eye ED: Yes normal appearance of both eyes Neck full ROM Chest Wall Chest Narrative: Dr. Bourne present with exam: Breast with incisions more laterally clean, dry intact. Underneath the breasts there were open ulceration with no active drainage. There is some slight (more content not included)... Normal [facility] Eosinophil percentageOrdered By: ED PROVIDER on 05-26-2025 Eosinophils/100 WBC (Bld) 5.3 % High 0-5 [facility] Erythrocyte distribution wid th ratioOrdered By: ED PROVIDER on 05-26-2025 Erythrocyte distribution width (RBC) [Ratio] 13.4 % 11.6-14.6 [facility] Erythrocyte distribution wid th standard deviationOrdered By: ED PROVIDER on 05-26-2025 Erythrocyte distribution width (RBC) [Ratio] 41.6 fl 35.1-43.9 [facility] Glomerular filtration rate ( GFR) estimation/1.73 sq m using serum, plasma, or whole bOrdered By: ED PROVIDER on 05-26-2025 GFR/1.73 sq M.predicted among non-blacks MDRD (S/P/Bld) [Vol rate/Area] 84 mL/min/{1.73_m2} >60 [facility] Comment on above: mL/min/1.73m2 CKD-EP I Creatinine Equation (2020) Hematocrit Auto (Bld) [Volum e fraction]Ordered By: ED PROVIDER on 05-26-2025 Hematocrit (Bld) [Volume fraction] 38.4 % 37-47 [facility] Hemoglobin measurementOrdere d By: ED PROVIDER on 05-26-2025 Hemoglobin (Bld) [Mass/Vol] 13.0 g/dL 12.0-15.0 [facility] Immature granulocytes/100 WB C Auto (Bld)Ordered By: ED PROVIDER on 05-26-2025 Immature granulocytes/100 WBC (Bld) 0.600 % 0.0-0.9 [facility] Comment on above: IG% - Immature Granu locytes (promyelocytes, myelocytes and metamyelocytes) > 1% indicates that a LEFT SHIFT is Present. Laboratory - Chemistry and C hemistry - challengeOrdered By: ED PROVIDER on 05-26-2025 AST [Catalytic activity/Vol] 23 U/L <32 [facility] Comment on above: Hemolysis present, R esults could be affected. Lactic Acidon 05-26-2025 Lactate [Moles/Vol] 1.3 mmol/L Normal 0.0-2.0 [facility] Comment on above: Order Comment: Y Performed By: #### M 100.3000, L100.0100, L3890.6301, L3890.6102, M100.2000, L500.3400, L3890.6202 #### [facility] [address] [place], [address] Lactic acid measurementOrder ed By: ED PROVIDER on 05-26-2025 Lactate [Moles/Vol] 1.3 mmol/L 0.0-2.0 [facility] MCV (mean corpuscular volume ) determinationOrdered By: ED PROVIDER on 05-26-2025 MCV (RBC) [Entitic vol] 86.3 fL 81-99 [facility] Mean corpuscular hemoglobin (MCH) determinationOrdered By: ED PROVIDER on 05-26-2025 MCH (RBC) [Entitic mass] 29.2 pg 27.0-32.0 [facility] Mean corpuscular hemoglobin concentration (MCHC) determinationOrdered By: ED PROVIDER on 05-26-2025 MCHC (RBC) [Mass/Vol] 33.9 g/dL 32-36 [facility] Mean platelet volume determi nationOrdered By: ED PROVIDER on 05-26-2025 Platelet mean volume (Bld) [Entitic vol] 9.5 fL 6.2-12.0 [facility] Monocyte percentageOrdered B y: ED PROVIDER on 05-26-2025 Monocytes/100 WBC (Bld) 8.9 % 0-10 [facility] Neutrophil percentageOrdered By: ED PROVIDER on 05-26-2025 Neutrophils/100 WBC (Bld) 50.4 % 47-70 [facility] Nucleated red blood cell per centageOrdered By: ED PROVIDER on 05-26-2025 Nucleated RBC/100 WBC (Bld) [Ratio] 0 % 0-5 [facility] Platelet countOrdered By: ED PROVIDER on 05-26-2025 Platelets (Bld) [#/Vol] 395 10*3/uL 150-450 [facility] Potassium measurement (mass/ volume)Ordered By: ED PROVIDER on 05-26-2025 Potassium (Unsp spec) [Mass/Vol] 4.0 mmol/L 3.3-5.1 [facility] Comment on above: Hemolysis present, R esults could be affected. RBC Auto (Bld) [#/Vol]Ordere d By: ED PROVIDER on 05-26-2025 RBC (Bld) [#/Vol] 4.45 10*6/uL 4.2-5.4 [facility] Serum creatinine measurement (mass/volume)Ordered By: ED PROVIDER on 05-26-2025 Creatinine [Mass/Vol] 0.83 mg/dL 0.70-1.20 [facility] Serum globulin measurementOr dered By: ED PROVIDER on 05-26-2025 Globulin (S) [Mass/Vol] 2.6 g/dL 2.2-4.2 [facility] Serum glucose measurement (m ass/volume)Ordered By: ED PROVIDER on 05-26-2025 Glucose [Mass/Vol] 135 mg/dL High 70-99 [facility] Serum or plasma alanine coffey otransferase (ALT) measurementOrdered By: ED PROVIDER on 05-26-2025 ALT [Catalytic activity/Vol] 16 U/L <35 [facility] Serum or plasma albumin madyson urement (mass/volume)Ordered By: ED PROVIDER on 05-26-2025 Albumin [Mass/Vol] 3.9 g/dL 3.5-5.0 [facility] Serum or plasma albumin/glob ulin mass ratioOrdered By: ED PROVIDER on 05-26-2025 Albumin/Globulin [Mass ratio] 1.5 {ratio} 0.9-2.4 [facility] Serum or plasma alkaline rolando sphatase measurementOrdered By: ED PROVIDER on 05-26-2025 ALP [Catalytic activity/Vol] 72 U/L 35-104 [facility] Serum or plasma calcium madyson urement (mass/volume)Ordered By: ED PROVIDER on 05-26-2025 Calcium [Mass/Vol] 9.2 mg/dL 7.6-11.0 [facility] Serum or plasma urea nitroge n measurement (mass/volume)Ordered By: ED PROVIDER on 05-26-2025 Urea nitrogen [Mass/Vol] 12 mg/dL 4-19 [facility] Sodium levelOrdered By: ED P ROVIDER on 05-26-2025 Sodium [Moles/Vol] 143 mmol/L 133-145 [facility] Total proteinOrdered By: ED PROVIDER on 05-26-2025 Protein [Mass/Vol] 6.5 g/dL 5.9-8.4 [facility] White blood cell (WBC) count Ordered By: ED PROVIDER on 05-26-2025 WBC (Bld) [#/Vol] 9.4 10*3/uL 4.4-11.0 [facility] Plastic Surgery Visit Report on 05-24-2025 Plastic Surgery Visit Report [facility] Surgery [address], [address] [place] [address] OFFICE VISIT Date of Service: 05/23/25 MR#: [id number] Acct: [id number] Name: PATRIA JOHNSON Rep #: [id number] : 1970 Provider: Dr. Yannick Bourne MD Age/Sex: 54/F [place] [facility] [place] Status: Signed Intake Vital Signs 05/12/25 15:59 Height 5 ft 4 in BP 156/84 H Blood Pressure Location Rt brachial Position Sitting Respiration 18 Pulse 98 Temp 98.8 F Temp Source Oral Pulse Oximetry (%) 97 Oxygen Delivery Method room air Intake Visit Reasons: 1 W FU Chief Complaint: post op breast reduction Allergies erythromycin base Allergy (Verified 05/12/25 16:01) Anaphylaxis penicillin V Allergy (Verified 05/12/25 16:01) unknown Sulfa (Sulfonamide Antibiotics) Allergy (Verified 05/12/25 16:01) Anaphylaxis Subjective Details: Pain controlled Compliant with Betadine paint on the right breast vertical limb incision wound. 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 There is also a small 0.5 x 2 cm wound on the horizontal aspect medially of the left breast. No induration and no fluid collections Coding Level of Care Code Global Post Op Diagnoses Status post breast reduction Z98.890 [facility] Medical History Depression Anxiety Diabetes Arthritis Anemia Easy bruising History of diverticulitis History of IBS Non-smoker Shortness of breath on exertion Contraceptive management GERD (gastroesophageal reflux disease) Vitamin D deficiency Hyperhidrosis Hypertension Surgical History Hx of LASIK S/P cholecystectomy H/O: Family History Mother Hypertension [...] USE, NO FAMILY HISTORY OF BLOOD CLOTS Assessment and Plan (No Qualifiers) Assessment and Plan (1) Status post breast reduction: Status: Acute Plan: Discussed Betadine paint to the area of dry eschar twice daily as well as the small wound on the left breast incision as well We will continue to let it demarcate and slough off Follow-up in 1 week Patient happy with the plan 05/24/25 0719 Date Yannick Bourne MD Cosign Signature: Date (if applicable) CC: Normal [place] [facility] Visit Report on 05-16-2025 Plastic Surgery Visit Report [facility] [address], [address] [place] [address] OFFICE VISIT Date of Service: 05/16/25 MR#: [id number] Acct: [id number] Name: PATRIA JOHNSON Rep #: [id number] : 1970 Provider: Dr. Yannick Bourne MD Age/Sex: 54/F Location: [facility] Status: Signed Intake Vital Signs 05/12/25 15:59 05/16/25 10:25 Height 5 ft 4 in BP 156/84 H 131/86 H Blood Pressure Location Rt brachial Lt brachial Position Sitting Sitting Respiration 18 18 Pulse 98 110 H Pulse Source Monitor Temp 98.8 F Temp Source Oral Pulse Oximetry (%) 97 97 Oxygen Delivery Method room air room air Intake Visit Reasons: FOLLOW UP Chief Complaint: post op breast reduction Is patient in pain?: No Allergies erythromycin base Allergy (Verified 05/12/25 16:01) Anaphylaxis penicillin V Allergy (Verified 05/12/25 16:01) unknown Sulfa (Sulfonamide Antibiotics) Allergy (Verified 05/12/25 16:01) Anaphylaxis Medications ???Medication ???Instructions ???Recorded ???Confirmed ???Type lisinopril 5 mg tablet 5 mg PO QDAY 01/16/18 05/16/25 His tory potassium chloride 10 mEq 10 meq PO QDAY 01/16/18 05/16/25 H istory tablet,extended release (Klor-Con) fluoxetine 40 mg capsule (Prozac) 40 mg PO DAILY 01/06/22 05/16/25 History levonorgestrel 20.4 mcg/24 hr (up 1 device intrauterine ONCE 05/16/25 History to 8 yrs) 52 mg intrauterine device (Liletta) bupropion HCl 150 mg 24 hr tablet, 150 mg PO QDAY 12/26/24 05/16/25 History extended release tirzepatide 2.5 mg/0.5 mL 2.5 mg subcut FR 12/26/24 05/16/25 History subcutaneous pen injector (Mounjaro) lansoprazole 15 mg capsule,delayed 15 mg PO DAILY 03/31/25 05/16/25 History release (Prevacid 24Hr) valacyclovir 500 mg tablet 500 mg PO BID PRN cold sores 03/3105/16/25 History (Valtrex) hyoscyamine sulfate 0.125 mg tablet 0.125 mg PO Q12H PRN PRN dyspep jaclyn 05/05/25 05/16/25 History clindamycin HCl 150 mg capsule 150 mg PO TID 5 days #15 caps 07/2405/16/25 Rx (Cleocin HCl) ondansetron 4 mg disintegrating 4 mg PO Q8H PRN nausea and 5 05/16/25 Rx tablet vomiting #10 tabs Subjective Details: Doing well overall postoperatively 2 weeks out from her breast reduction Drains with minimal output and removed today in clinic without issue Pain controlled Patient reports relief of her neck and shoulders 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 Coding Level of Care Code Global Post Op Diagnoses Status post breast reduction Z98.890 [facility] Medical History Depression Anxiety Diabetes Arthritis Anemia Easy bruising History of diverticulitis History of IBS Non-smoker Shortness of breath on exertion Contraceptive management GERD (gastroesophageal reflux disease) Vitamin D deficiency Hyperhidrosis Hypertension Surgical History Hx of LASIK S/P cholecystectomy H/O: Family History Mother Hypertension [...] USE, NO FAMILY HISTORY OF BLOOD CLOTS Assessment and Plan (No Qualifiers) Assessment and Plan (1) Status post breast reduction: Status: Acute Plan: Discussed Betadine paint to the area of dry eschar twice daily We will continue to let it demarcate and slough off Follow-up in 1 week 05/16/25 2901 Date Yannick Bourne MD Cosign Signature: Date (if applicable) CC: Normal [place] [facility] Visit Report on 05-12-2025 Plastic Surgery Visit Report [facility] [address], [address] [place] [address] OFFICE VISIT Date of Service: 05/12/25 MR#: [id number] Acct: [id number] Name: GLORIAPATRIA FRANKLIN Rep #: [id number] : 1970 Provider: Dr. Yannick Bourne MD Age/Sex: 54/F Location: [facility] Status: Signed Intake Vital Signs 05/07/25 15:10 05/12/25 15:59 Height 5 ft 4 in 5 ft 4 in BP 156/84 H Blood Pressure Location Rt brachial Position Sitting Respiration 18 Pulse 98 Temp 98.8 F Temp Source Oral Pulse Oximetry (%) 97 Oxygen Delivery Method room air Intake Visit Reasons: POST OP Chief Complaint: post op breast reduction Is patient in pain?: Yes (2-01/06) Allergies erythromycin base Allergy (Verified 05/12/25 16:01) Anaphylaxis penicillin V Allergy (Verified 05/12/25 16:01) unknown Sulfa (Sulfonamide Antibiotics) Allergy (Verified 05/12/25 16:01) Anaphylaxis Medications ???Medication ???Instructions ???Recorded ???Confirmed ???Type lisinopril 5 mg tablet 5 mg PO QDAY 01/16/18 05/12/25 His tory potassium chloride 10 mEq 10 meq PO QDAY 01/16/18 05/12/25 H istory tablet,extended release (Klor-Con) fluoxetine 40 mg capsule (Prozac) 40 mg PO DAILY 01/06/22 05/12/25 History levonorgestrel 20.4 mcg/24 hr (up 1 device intrauterine ONCE 05/12/25 History to 8 yrs) 52 mg intrauterine device (Liletta) bupropion HCl 150 mg 24 hr tablet, 150 mg PO QDAY 12/26/24 05/12/25 History extended release tirzepatide 2.5 mg/0.5 mL 2.5 mg subcut FR 12/26/24 05/12/25 History subcutaneous pen injector (Mounkalinro) lansoprazole 15 mg capsule,delayed 15 mg PO DAILY 03/31/25 05/12/25 History release (Prevacid 24Hr) valacyclovir 500 mg tablet 500 mg PO BID PRN cold sores 03/3105/12/25 History (Valtrex) hyoscyamine sulfate 0.125 mg tablet 0.125 mg PO Q12H PRN PRN dyspep jaclyn 05/05/25 05/12/25 History clindamycin HCl 150 mg capsule 150 mg PO TID 5 days #15 caps 07/2405/12/25 Rx (Cleocin HCl) ondansetron 4 mg disintegrating 4 mg PO Q8H PRN nausea and 5 05/12/25 Rx tablet vomiting #10 tabs oxycodone 5 mg tablet 5 mg PO Q4H PRN pain 5 days #20 05/12/25 Rx tabs Nurse's Note: pt here post breast reduction, rash on back, pain 2-3/10 Subjective Details: Doing well overall Not taking much pain medication. She has been taking the antibiotics and has developed a rash on her back with small red spots that itch. Otherwise doing well. Reports drain output on both sides consistently around 30 to 40 cc/day. 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 Partial-thickness blistering and small wound just under the nipple areolar complex on the right, no inappropriate drainage however. Xeroform applied. Breasts are soft without any signs of hematoma. Appropriately swollen. Incisions are overall clean dry and intact. Drains bilaterally are serosanguineous. Coding Level of Care Code Global Post Op Diagnoses Status post breast reduction Z98.890 [facility] Medical History Depression Anxiety Diabetes Arthritis Anemia Easy bruising History of diverticulitis History of IBS Non-smoker Shortness of breath on exertion Contraceptive management GERD (gastroesophageal reflux disease) Vitamin D deficiency Hyperhidrosis Hypertension Surgical History Hx of LASIK S/P cholecystectomy H/O: Family History Mother Hypertension [...] USE, NO FAMILY HISTORY OF BLOOD CLOTS Assessment and Plan (No Qualifiers) Assessment and Plan (1) Status post breast reduction: Status: Acute Plan: Discontinue antibiotics (may be contributing to the rash) Xeroform twice daily to area underneath the right areola complex. Continue drain care Follow-up in 1 week for drain removal and for repeat checkup Discussed strict return precautions Patient instructed to wear loose fitting bra without a wire to keep ABD pads in place and Xeroform in place over the right breast mound just underneath the nipple areolar complex (more content not included)... Normal [place] Absolute lymphocyte countOrd ered By: Yannick Bourne on 05-08-2025 Lymphocytes Auto (Unsp spec) [#/Vol] 2.73 10*3/uL 0.83-4.51 [place] Absolute neutrophil countOrd ered By: Yannick Bourne on 05-08-2025 Neutrophils (Bld) [#/Vol] 6.2 10*3/uL 2.0-7.7 [place] Anion gap in Serum or Plasma Ordered By: Yannick Bourne on 05-08-2025 Anion gap [Moles/Vol] 11 mmol/L - [facility] Automated lymphocyte count a s percentage of total leukocytesOrdered By: Yannick Bourne on 05-08-2025 Lymphocytes/100 WBC Auto (Unsp spec) 25.8 % - [place] BUN/creatinine ratioOrdered By: Yannick Bourne on 05-08-2025 Urea nitrogen/Creatinine [Mass ratio] 12.8 mg/mg - [place] Basic Metabolic Profile (BMP )on 05-08-2025 BUN/CRE 12.8 RATIO Normal 08-18 [place] Comment on above: Performed By: #### M 100.3000, L100.0100, L3890.6301, L3890.6102, M100.1999, L500.3400, L3890.6202 #### [facility] [address] [place], [address] Calcium [Mass/Vol] 8.5 mg/dL Normal 7.6-11.0 [facility] Comment on above: Performed By: #### M 100.3000, L100.0100, L3890.6301, L3890.6102, M100.2000, L500.3400, L3890.6202 #### [facility] [address] [place], [address] Chloride [Moles/Vol] 101 mmol/L Normal 98-108 [facility] Comment on above: Performed By: #### M 100.3000, L100.0100, L3890.6301, L3890.6102, M100.2000, L500.3400, L3890.6202 #### [facility] [address] [place], [address] CO2 [Moles/Vol] 24.6 mmol/L Normal 21.0-32.0 [place] Comment on above: Performed By: #### M 100.3000, L100.0100, L3890.6301, L3890.6102, M100.2000, L500.3400, L3890.6202 #### [facility] [address] [place], [address] Creatinine [Mass/Vol] 0.95 mg/dL Normal 0.70-1.20 [facility] Comment on above: Performed By: #### M 100.3000, L100.0100, L3890.6301, L3890.6102, M100.2000, L500.3400, L3890.6202 #### [facility] [address] [place], [address] ECRCL 82.19 ml/min Normal 50-250 [facility] Comment on above: Performed By: #### M 100.3000, L100.0100, L3890.6301, L3890.6102, M100.2000, L500.3400, L3890.6202 #### [facility] [address] [place], [address] GAP 11 Normal 5-15 [facility] Comment on above: Performed By: #### M 100.3000, L100.0100, L3890.6301, L3890.6102, M100.2000, L500.3400, L3890.6202 #### [facility] [address] [place], [address] GFR/1.73 sq M.predicted among non-blacks MDRD (S/P/Bld) [Vol rate/Area] 72 mL/min/{1.73_m2} Normal >60 [facility] Comment on above: Result Comment: mL/m in/1.73m2 CKD-EPI Creatinine Equation (2020) Performed By: #### M 100.3000, L100.0100, L3890.6301, L3890.6102, M100.2000, L500.3400, L3890.6202 #### [facility] [address] [place], [address] Glucose [Mass/Vol] 115 mg/dL High 70-99 [facility] Comment on above: Performed By: #### M 100.3000, L100.0100, L3890.6301, L3890.6102, M100.2000, L500.3400, L3890.6202 #### [facility] [address] [place], [address] Potassium [Moles/Vol] 3.5 mmol/L Normal 3.3-5.1 [facility] Comment on above: Performed By: #### M 100.3000, L100.0100, L3890.6301, L3890.6102, M100.2000, L500.3400, L3890.6202 #### [facility] [address] [place], [address] Sodium [Moles/Vol] 137 mmol/L Normal 133-145 [facility] Comment on above: Performed By: #### M 100.3000, L100.0100, L3890.6301, L3890.6102, M100.2000, L500.3400, L3890.6202 #### [facility] [address] [place], [address] Urea nitrogen [Mass/Vol] 12 mg/dL Normal 4-19 [facility] Comment on above: Performed By: #### M 100.3000, L100.0100, L3890.6301, L3890.6102, M100.2000, L500.3400, L3890.6202 #### [facility] [address] [place], [address] Basophil percentageOrdered B y: Yannick Bourne on 05-08-2025 Basophils/100 WBC (Bld) 0.4 % 0-1 [facility] Bedside Glucoseon 05-08-2025 FINGERSTICK GLU 159 mg/dL High 74-106 [place] Comment on above: Result Comment: TIMMY MARTINEZ OF PATIENT CARE PER NURSING PROTOCOL Performed By: #### L 501.080 #### [facility] [address] [place], [address] CBC W/Diff, Automatedon 04-29 Absolute Lymph 2.73 X10 3/uL Normal 0.83-4.51 [facility] Comment on above: Performed By: #### M 100.3000, L100.0100, L3890.6301, L3890.6102, M100.2000, L500.3400, L3890.6202 #### [facility] [address] [place], [address] Absolute Neut 6.2 X10 3/uL Normal 2.0-7.7 [facility] Comment on above: Performed By: #### M 100.3000, L100.0100, L3890.6301, L3890.6102, M100.2000, L500.3400, L3890.6202 #### [facility] [address] [place], [address] Basophils/100 WBC (Bld) 0.4 % Normal 0-1 [facility] Comment on above: Performed By: #### M 100.3000, L100.0100, L3890.6301, L3890.6102, M100.2000, L500.3400, L3890.6202 #### [facility] [address] [place], [address] Eosinophils/100 WBC (Bld) 3.1 % Normal 0-5 [facility] Comment on above: Performed By: #### M 100.3000, L100.0100, L3890.6301, L3890.6102, M100.2000, L500.3400, L3890.6202 #### [facility] [address] [place], [address] Erythrocyte distribution width (RBC) [Ratio] 13.7 % Normal 11.6-14.6 [facility] Comment on above: Performed By: #### M 100.3000, L100.0100, L3890.6301, L3890.6102, M100.2000, L500.3400, L3890.6202 #### [facility] [address] [place], [address] Hematocrit (Bld) [Volume fraction] 36.7 % Low 37-47 [facility] Comment on above: Performed By: #### M 100.3000, L100.0100, L3890.6301, L3890.6102, M100.2000, L500.3400, L3890.6202 #### [facility] [address] [place], [address] Hemoglobin (Bld) [Mass/Vol] 12.4 g/dL Normal 12.0-15.0 [facility] Comment on above: Performed By: #### M 100.3000, L100.0100, L3890.6301, L3890.6102, M100.2000, L500.3400, L3890.6202 #### [facility] [address] [place], [address] IG% 0.400 Normal 0.0-0.9 [facility] Comment on above: Result Comment: IG% - Immature Granulocytes (promyelocytes, myelocytes and metamyelocytes) > 1% indicates that a LEFT SHIFT is Present. Performed By: #### M 100.3000, L100.0100, L3890.6301, L3890.6102, M100.2000, L500.3400, L3890.6202 #### [facility] [address] [place], [address] Lymphocytes/100 WBC (Bld) 25.8 % Normal 19-41 [facility] Comment on above: Performed By: #### M 100.3000, L100.0100, L3890.6301, L3890.6102, M100.2000, L500.3400, L3890.6202 #### [facility] [address] [place], [address] MCH (RBC) [Entitic mass] 29.7 pg Normal 27.0-32.0 [facility] Comment on above: Performed By: #### M 100.3000, L100.0100, L3890.6301, L3890.6102, M100.2000, L500.3400, L3890.6202 #### [facility] [address] [place], [address] MCHC (RBC) [Mass/Vol] 33.8 g/dL Normal 32-36 [facility] Comment on above: Performed By: #### M 100.3000, L100.0100, L3890.6301, L3890.6102, M100.2000, L500.3400, L3890.6202 #### [facility] [address] [place], [address] MCV (RBC) [Entitic vol] 87.8 fL Normal 81-[address] [facility] Comment on above: Performed By: #### M 100.3000, L100.0100, L3890.6301, L3890.6102, M100.2000, L500.3400, L3890.6202 #### [facility] [address] [place], [address] Monocytes/100 WBC (Bld) 11.8 % High 0-10 [facility] Comment on above: Performed By: #### M 100.3000, L100.0100, L3890.6301, L3890.6102, M100.2000, L500.3400, L3890.6202 #### [facility] [address] [place], [address] Neutrophils/100 WBC (Bld) 58.5 % Normal 47-70 [facility] Comment on above: Performed By: #### M 100.3000, L100.0100, L3890.6301, L3890.6102, M100.2000, L500.3400, L3890.6202 #### [facility] [address] [place], [address] Nucleated RBC (Bld) [#/Vol] 0 10*3/uL Normal 0-5 [facility] Comment on above: Performed By: #### M 100.3000, L100.0100, L3890.6301, L3890.6102, M100.2000, L500.3400, L3890.6202 #### [facility] [address] [place], [address] Platelet mean volume (Bld) [Entitic vol] 9.6 fL Normal 6.2-12.0 [facility] Comment on above: Performed By: #### M 100.3000, L100.0100, L3890.6301, L3890.6102, M100.2000, L500.3400, L3890.6202 #### [facility] [address] [place], [address] Platelets (Bld) [#/Vol] 253 10*3/uL Normal 150-450 [facility] Comment on above: Performed By: #### M 100.3000, L100.0100, L3890.6301, L3890.6102, M100.2000, L500.3400, L3890.6202 #### [facility] [address] [place], [address] RBC (Bld) [#/Vol] 4.18 10*6/uL Low 4.2-5.4 [facility] Comment on above: Performed By: #### M 100.3000, L100.0100, L3890.6301, L3890.6102, M100.2000, L500.3400, L3890.6202 #### [facility] [address] [place], [address] RDW SD 43.8 fl Normal 35.1-43.9 [facility] Comment on above: Performed By: #### M 100.3000, L100.0100, L3890.6301, L3890.6102, M100.2000, L500.3400, L3890.6202 #### [facility] [address] [place], [address] WBC (Bld) [#/Vol] 10.6 10*3/uL Normal 4.4-11.0 [facility] Comment on above: Performed By: #### M 100.3000, L100.0100, L3890.6301, L3890.6102, M100.2000, L500.3400, L3890.6202 #### [facility] [address] [place], [address] Carbon dioxide, total [Moles /volume] in Central venous bloodOrdered By: Yannick Bourne on 05-08-2025 CO2 [Moles/Vol] 24.6 mmol/L 21.0-32.0 [facility] Chloride assayOrdered By: Mary Bourne on 05-08-2025 Chloride [Moles/Vol] 101 mmol/L 98-108 [facility] Eosinophil percentageOrdered By: Yannick Bourne on 05-08-2025 Eosinophils/100 WBC (Bld) 3.1 % 0-5 [facility] Erythrocyte distribution wid th ratioOrdered By: Yannick Bourne on 05-08-2025 Erythrocyte distribution width (RBC) [Ratio] 13.7 % 11.6-14.6 [facility] Erythrocyte distribution wid th standard deviationOrdered By: Yannick Bourne on 05-08-2025 Erythrocyte distribution width (RBC) [Ratio] 43.8 fl 35.1-43.9 [facility] Glomerular filtration rate ( GFR) estimation/1.73 sq m using serum, plasma, or whole bOrdered By: Yannick Bourne on 05-08-2025 GFR/1.73 sq M.predicted among non-blacks MDRD (S/P/Bld) [Vol rate/Area] 72 mL/min/{1.73_m2} >60 [facility] Comment on above: mL/min/1.73m2 CKD-EP I Creatinine Equation (2020) [facility] By: Yannick Bourne on 05-08-2025 Glucose [Mass/Vol] 159 mg/dL High 74-106 [facility] Comment on above: MANAGEMENT OF PATIEN T CARE PER NURSING PROTOCOL Hematocrit Auto (Bld) [Volum e fraction]Ordered By: Yannick Bourne on 05-08-2025 Hematocrit (Bld) [Volume fraction] 36.7 % Low 37-47 [facility] Hemoglobin measurementOrdere d By: Yannick Bourne on 05-08-2025 Hemoglobin (Bld) [Mass/Vol] 12.4 g/dL 12.0-15.0 [facility] Immature granulocytes/100 WB C Auto (Bld)Ordered By: Yannick Bourne on 05-08-2025 Immature granulocytes/100 WBC (Bld) 0.400 % 0.0-0.9 [facility] Comment on above: IG% - Immature Granu locytes (promyelocytes, myelocytes and metamyelocytes) > 1% indicates that a LEFT SHIFT is Present. MCV (mean corpuscular volume ) determinationOrdered By: Yannick Bourne on 05-08-2025 MCV (RBC) [Entitic vol] 87.8 fL 81-99 [facility] Mean corpuscular hemoglobin (MCH) determinationOrdered By: Yannick Bourne on 05-08-2025 MCH (RBC) [Entitic mass] 29.7 pg 27.0-32.0 [facility] Mean corpuscular hemoglobin concentration (MCHC) determinationOrdered By: Yannick Bourne on 05-08-2025 MCHC (RBC) [Mass/Vol] 33.8 g/dL 32-36 [facility] Mean platelet volume determi nationOrdered By: Yannick Bourne on 05-08-2025 Platelet mean volume (Bld) [Entitic vol] 9.6 fL 6.2-12.0 [facility] Monocyte percentageOrdered B y: Yannick Bourne on 05-08-2025 Monocytes/100 WBC (Bld) 11.8 % High 0-10 [facility] Neutrophil percentageOrdered By: Yannick Bourne on 05-08-2025 Neutrophils/100 WBC (Bld) 58.5 % 47-70 [facility] Nucleated red blood cell per centageOrdered By: Yannick Bourne on 05-08-2025 Nucleated RBC/100 WBC (Bld) [Ratio] 0 % 0-5 [facility] Platelet countOrdered By: Mary Bourne on 05-08-2025 Platelets (Bld) [#/Vol] 253 10*3/uL 150-450 [facility] Potassium measurement (mass/ volume)Ordered By: Yannick Bourne on 05-08-2025 Potassium (Unsp spec) [Mass/Vol] 3.5 mmol/L 3.3-5.1 [facility] RBC Auto (Bld) [#/Vol]Ordere d By: Yannick Bourne on 05-08-2025 RBC (Bld) [#/Vol] 4.18 10*6/uL Low 4.2-5.4 [facility] Serum creatinine measurement (mass/volume)Ordered By: Yannick Bourne on 05-08-2025 Creatinine [Mass/Vol] 0.95 mg/dL 0.70-1.20 [facility] Serum glucose measurement (m ass/volume)Ordered By: Yannick Bourne on 05-08-2025 Glucose [Mass/Vol] 115 mg/dL High 70-99 [facility] Serum or plasma calcium madyson urement (mass/volume)Ordered By: Yannick Bourne on 05-08-2025 Calcium [Mass/Vol] 8.5 mg/dL 7.6-11.0 [facility] Serum or plasma urea nitroge n measurement (mass/volume)Ordered By: Yannick Bourne on 05-08-2025 Urea nitrogen [Mass/Vol] 12 mg/dL 4-19 [facility] Sodium levelOrdered By: Lei Bourne on 05-08-2025 Sodium [Moles/Vol] 137 mmol/L 133-145 [facility] White blood cell (WBC) count Ordered By: Yannick Bourne on 05-08-2025 WBC (Bld) [#/Vol] 10.6 10*3/uL 4.4-11.0 [facility] Bedside Glucoseon 05-07-2025 FINGERSTICK GLU 133 mg/dL High 74-106 [facility] Comment on above: Result Comment: TIMMY GEMENT OF PATIENT CARE PER NURSING PROTOCOL Performed By: #### M 100.3000, L100.0100, L3890.6301, L3890.6102, M100.2000, L500.3400, L3890.6202 #### [facility] [address] [place], [address] FINGERSTICK GLU 119 mg/dL High 74-106 [facility] Comment on above: Result Comment: TIMMY GEMENT OF PATIENT CARE PER NURSING PROTOCOL Performed By: #### M 100.3000, L100.0100, L3890.6301, L3890.6102, M100.2000, L500.3400, L3890.6202 #### [facility] [address] [place], [address] Glucose measurement at bedsi deOrdered By: Yannick Bourne on 05-07-2025 Glucose [Mass/Vol] 133 mg/dL High 74-106 [facility] Comment on above: MANAGEMENT OF PATIEN T CARE PER NURSING PROTOCOL H AND P Exam - Surgicalon H&P Exam - Surgical [facility] Medical Records Department [address] [place] [address] H P Exam - Surgical 05/07/25 0702 MR#: [id number] Acct: [id number] Name: PATRIA JOHNSON Rep #: [id number] : 1970 54 From: Yannick Bourne MD PCP: Clemencia Guadalupe DO Status:[facility] [place] [facility] Location: [place] [address] HPI - General HPI Narrative Breast Reduction Ehsan Johnson is a delightful 54-year-old female with past [...] surgery, including the risks, benefits, and alternatives for informed consent. She was given an extensive hand out with information about the surgery. We also discussed the results of the mammography (BI-RADS 1) with plan for yearly screening at 12-month intervals. Current Encounter (DATE OF SURGERY H P UPDATE): I saw and examined the patient this morning in pre- operative holding. We discussed risks and benefits of today's surgery and they would like to proceed. NO CHANGE in health history since last seen and evaluated except had a viral URI a couple of weeks ago that has resolved. Ready to proceed with surgery. [facility] Medical History Depression Anxiety Diabetes Arthritis Anemia Easy bruising History of diverticulitis History of IBS Non-smoker Shortness of breath on exertion Contraceptive management GERD (gastroesophageal reflux disease) Vitamin D deficiency Hyperhidrosis Hypertension Home Medications ???Medication ???Instructions ???Recorded ???Last Taken ???Type lisinopril 5 mg tablet 5 mg PO QDAY 01/16/18 05/06/25 18: 00 History potassium chloride 10 mEq 10 meq PO QDAY 01/16/18 05/06/25 1 8:00 History tablet,extended release (Klor-Con) fluoxetine 40 mg capsule (Prozac) 40 mg PO DAILY 01/06/22 05/06/25 16:00 History levonorgestrel 20.4 mcg/24 hr (up 1 device intrauterine ONCE Unknown History to 8 yrs) 52 mg intrauterine device (Liletta) bupropion HCl 150 mg 24 hr tablet, 150 mg PO QDAY 12/26/24 05/06/25 06:00 History extended release tirzepatide 2.5 mg/0.5 mL 2.5 mg subcut FR 12/26/24 04/18/25 History subcutaneous pen injector (Mounjaro) lansoprazole 15 mg capsule,delayed 15 mg PO DAILY 03/31/25 05/06/25 18:00 History release (Prevacid 24Hr) valacyclovir 500 mg tablet 500 mg PO BID PRN cold sores 03/31 Unknown History (Valtrex) hyoscyamine sulfate 0.125 mg tablet 0.125 mg PO Q12H PRN PRN dyspep jaclyn 05/05/25 05/06/25 18:00 History clindamycin HCl 150 mg capsule 150 mg PO TID 5 days #15 caps 07/24 Unknown Rx (Cleocin HCl) ondansetron 4 mg disintegrating 4 mg PO Q8H PRN nausea and 5 Unknown Rx tablet vomiting #10 tabs oxycodone 5 mg tablet 5 mg PO Q4H PRN pain 5 days #20 Unknown Rx tabs Allergy/AdvReac Type Severity Reaction Status Date / Time erythromycin base Allergy Anaphylaxis Verified 05/07/25 06:56 penicillin V Aller (more content not included)... [facility] MR/POSTOP.[facility] 05-07-2025 MR/POSTOP.[facility] Medical Records Department [address] [place] [address] Anesthesia Postop Eval I 05/07/25 1257 MR#: [id number] Acct: [id number] Name: PATRIA JOHNSON Rep #: [id number] : 1970 54 From: Iris eBrg CRNA PCP: Clemencia Guadalupe DO Status:REG SDC Y Race: C Location: [place] [address] Anesthesia: Postop Eval I Current Vital Signs Temperature: 97.6 F Pulse Rate: 89 Blood Pressure: 131/81 Respiratory Rate: 16 Pulse Ox: 99 Oxygen Delivery Method: Simple Mask Oxygen Flow Rate (L/min): 6 Assessment Airway patent: Yes Spontaneous unlabored respirations: Yes Mental status: Awake and Calm nausea: No Vomiting: No Anesthesia Complication: No Fluid Hydration Crystalloid volume administer (ml): 2,100 Total IV fluid infused: 2,100 Progress Note Anesthesia document: Postop Eval 1 completed: Yes 05/07/25 1258 Date Iris Berg SUMMER BABYSITTER Cosigner Signature: Date CC: Signed [facility] [id number] 05-07-2025 MR/POSTOPAN2 [facility] Medical Records Department [address] [place] [address] Anesthesia Postop Eval II 05/07/25 1344 MR#: [id number] Acct: [id number] Name: PATRIA JOHNSON Rep #: [id number] : 1970 54 From: Desean Bateman MD PCP: Clemencia Guadalupe DO Status:ADM GALILEA Y Race: C Location: [place]3 [id number] Anesthesia Postop Eval I Sum Postop Eval Completion status Anesthesia document: Postop Eval 1 completed: Yes Anesthesia Postop Eval I Summary Anesthesia Postop Eval I Summary: Anesthesia Postop Eval I: Assessment Summary Airway patent Yes 05/07/25 12:58 SUMMER [email or web address].[email or web address] Spontaneous unlabored Yes 05/07/25 12:58 SUMMER BABYSITTER.GDOTT respirations Mental status Awake,Calm 05/07/25 12:58 SUMMER BABYSITTER.GDOTT nausea No 05/07/25 12:58 SUMMER BABYSITTER.GDOTT Vomiting No 05/07/25 12:58 SUMMER BABYSITTER.GDOTT Anesthesia Postop Eval I: Fluid Summary Crystalloid volume administer 2,100 05/07/25 12:58 SUMMER BABYSITTER.GDOTT (ml) Colloids volume administered ( ml) Blood Product volume administered (ml) Total IV fluid infused 2,100 05/07/25 12:58 SUMMER BABYSITTER.GDOTT Anesthesia Postop Eval I: Summary Notes Anesthesia Complication No 05/07/25 12:58 SUMMER BABYSITTER.GDOTT Anesthesia Complication Comment: Post-operative progress note Anesthesia: Postop Eval II Evaluation Mental status: Awake and Calm Pain Level: 1 nausea: No Vomiting: No Complications Anesthesia Complication: No 05/07/25 1345 Date Desean Bateman MD Cosigner Signature: Date CC: Signed [facility] Operative Reporton 5 Operative Report [facility] Medical Records Department [address] [place] [address] Operative Report 05/07/25 1443 MR#: [id number] Acct: [id number] Name: PATRIA JOHNSON Rep #: [id number] : 1970 54 From: Yannick Bourne MD PCP: Clemencia Guadalupe DO Status:ADM GALILEA Location: [place] [address] Operative Report (Standard) Operative Information Date of Procedure: 05/07/25 Pre-Operative Diagnosis: Macromastia Post-Operative Diagnosis: Same Surgery/Procedure Performed: 1) Breast reduction (bilateral), inferior pedicle with alan pattern skin resection and axillary/lateral chest liposuction (CPT: 88331 x 2 with 50 modifier) 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 18 cc of quarter percent Marcaine with 1 200,000 epinephrine for local block) RN Documented Start/Stop Times: Operation Date: 05/07/25 08:00 Case Time Into Pre-Op 05/07/25 06:36 Anesthesia Start 05/07/25 08:17 Into Room 05/07/25 08:17 Procedure Start 05/07/25 08:57 Procedure End 05/07/25 12:35 Anesthesia End 05/07/25 12:49 Out of Room 05/07/25 12:49 Into Recovery 05/07/25 12:52 Procedure Start Time: 08:57 Procedure Stop Time: 12:35 Select all DRAINS/GRAFTS/IMPLAN TS that apply: None Estimated Blood Loss: 200 cc Specimen collected: Yes Description of specimen(s) removed: Right and Left breast tissue from resection Description of surgery: Indications: Patria Johnson is a delightful 54-year-old female with macromastia. She has neck and back pain as well as shoulder grooving from the large breasts. She presents today for breast reduction. She understands the risk benefits and alternatives to the procedure. Procedure details: Patient was marked in preoperative holding and taken back to the operating room where she was administered general anesthesia and the above-noted local and tumescent. He was given time to take effect. She was prepped and draped in sterile fashion all proper timeouts were performed per protocol. A 10 blade scalpel was used to excise the Alan pattern juares on the left breast without committing to the superior nipple position. The inferior pedicle was then incised which was 10 cm wide. Bovie electrocautery was taken down to the chest through the breast tissue to develop the inferior pedicle. Dissection was then carried out above the fascia of the pectoralis muscle to nearly the level of the clavicle. The anticipated wedge resections medially and laterally were excised full- thickness with the Bovie electrocautery and the medial and lateral and superior aspects of the Alan pattern flap was then dissected along the level of the breast parenchyma with Bovie electrocautery. The tissue was then grouped together and weighed and was 528 g. The same procedure was performed on the right side with a 554 g removal. 150 cc was then aspirated from the bilateral axilla/lateral chest wall for further resection of tissue and to improve contour. Hemostasis obtained with Bovie electrocautery and the cavity was washed out with copious months normal saline. The flaps were then tacked into place with alexandrea and the patient was sat up. Following confirmation of adequate symmetry and reduction volume, we confirmed the nipple position that had been marked preoperatively and checked the nipple for viability. Both nipples were warm and well-perfused with less than 2- second capillary refill. We therefore excised the keyhole full-thickness so as to provide a position for the nipple (this was included in the above-noted weights). The cavity was irrigated with copious amounts normal saline and Irrisept. 19 Macedonian Fabian drains were tunneled out laterally. Hemostasis was confirmed with Bovie electrocautery. The Alan pattern flaps and the nipples were then inset with 3-0 Monocryl deep sutures. The nipple was further inset with 4-0 Monocryl running subcuticular sutures. Insorb was then used for the horizontal and vertical limbs for additional closure. 3-0 Monocryl running subcuticular sutures were then placed for the vertical and horizontal limbs as well as pernio tape/Dermabond. Steri-Strips were placed around the nipple. The nipples were warm and viable at the end of the case. Patient was awakened taken the PACU in stable condition. ABDs and a surgical bra were applied. She tolerated the procedure well. Postoperative plan: Admit overnight for postoperative monitoring. Anticipate discharge in the morning Surgical Findings: Left breast: 528 g removed from resection, 175 cc of Lipo aspirate removed Right breast: 554 g removed from resection, 175 cc of Lipo aspirate removed Complications Complications: No Adm (more content not included)... [facility] [place] ,Urineon 05-07-2025 Beta HCG ( test) Ql (U) Negative [facility] Comment on above: Result Comment: Very dilute urine specimens, as indicated by a low specific gravity, may not contain patient relations representative levels of hCG. If is still suspected, a first morning urine specimen should be collected 48 hours later and tested. Performed By: #### M 100.3000, L100.0100, L3890.6301, L3890.6102, M100.2000, L500.3400, L3890.6202 #### [facility] [address] [place], [place], [address] Surgery Specimen Level Leon 05-07-2025 Surgery Specimen Level IV Patient Age/Sex Location Account Attending Physician PATRIA JOHNSON 54/F MS3 [id number] Dr. Yannick Bourne MD Specimen: [id number] Received: 05/07/25 Status: LIV Du Num: [id number] Spec Type: MAMOPLASTY Subm Dr: Dr. Yannick Bourne MD HEADER OPERATION: Breast reduction with free nipple grafting PRE-OP DIAGNOSIS: Macromastia TISSUE SUBMITTED: A- Left breast tissue, B- Right breast tissue MICROSCOPIC DIAGNOSIS A. Breast, left, "macromastia", reduction: - Benign breast parenchyma and unremarkable skin (523 grams). B. Breast, right, "macromastia", reduction: - Benign breast parenchyma and unremarkable skin (551 grams). MICROSCOPIC DESCRIPTION Slides are reviewed. GROSS DESCRIPTION Received fresh in 2 containers, and subsequently placed in formalin, labeled with the patient's name and date of . Designated as: A. "Left breast tissue" is a 523 g, 24.0 x 17.2 x 4.4 cm aggregate of hernandez-yellow fibrofatty tissue and hernandez portions of skin. Sectioning reveals fibrofatty cut surfaces (85% fatty, 15% fibrotic). Block Inspector sections are submitted in 2 cassettes. B. "Right breast tissue" is a 551 g, 26.0 x 13.9 x 2.9 cm aggregate of hernandez-yellow fibrofatty tissue and hernandez portions of skin. Sectioning reveals fibrofatty cut surfaces (95% fatty, 5% fibrotic). Block Inspector sections are submitted in 2 cassettes [place] 05/07/2025PT:[id number] Patient Age/Sex Location Account Attending Physician PATRIA JOHNSON 54/F MS3 [id number] Dr. Yannick Bourne MD Signed (signature on file) Dr. Debbie Mcarthur MD 05/08/25 1657 [facility] Comment on above: Performed By: #### M 100.3000, L100.0100, L3890.6301, L3890.6102, M100.2000, L500.3400, L3890.6202 #### [facility] [address] [place], [address] Urine testOrdered By: Anupam Newby on 05-07-2025 HCG ( test) Ql (U) Negative [facility] Comment on above: Very dilute urine sp ecimens, as indicated by a low specificgravity, may not contain patient relations representative levels of hCG. If is still suspected, a first morning urinespecimen should be collected 48 hours later and tested. Electrocardiogram reportOrde red By: Florentin Rayo on 04-02-2025 EKG study [facility] [address] [place] [address] 12 Lead EKG 04/01/25 1314 MR#: [id number] Acct: [id number] Name: PATRIA JOHNSON Rep #:[id number] : 1970 54 From: Florentin connolly MD Attending Dr: Dr. Yannick Bourne MD Status: PRE SDC Ordering Dr: Anupam Newby MD Date: Location: [facility] Sex: F C Admitted: Test Reason : PRE OP Blood Pressure : */* mmHG Vent. Rate : 90 BPM Atrial Rate : 90 BPM P-R Int : 152 ms QRS Dur : 84 ms QT Int : 360 ms P-R-T Axes : 51 44 47 degrees QTcB Int : 440 ms Normal sinus rhythm Normal ECG Confirmed by Florentin Rayo ([id number]), tape editor UVALDO LUGO ([id number]) on 04/02/2025 5:49:56 AM Referred By: Yannick Bourne Confirmed By: Florentin Rayo 04/02/25 0549 Date _ Florentin Rayo MD CC: Dr. Anupam Newby MD; Dr. Yannick Bourne MD; Clemencia Guadalupe DO ~ Signed [facility] Work Phone: 12 Lead EKGon 04-01-2025 12 Lead EKG [facility] [address] [place] [address] 12 Lead EKG 04/01/25 1314 MR#: [id number] Acct: [id number] Name: PATRIA JOHNSON Rep #: [id number] : 1970 54 From: Florentin Rayo MD Attending Dr: Dr. Yannick Bourne MD Status: PRE SDC Ordering Dr: Anupam Newby MD Date: 04/01/25 Location: [facility] Sex: F C Admitted: Test Reason : PRE OP Blood Pressure : */* mmHG Vent. Rate : 90 BPM Atrial Rate : 90 BPM P-R Int : 152 ms QRS Dur : 84 ms QT Int : 360 ms P-R-T Axes : 51 44 47 degrees QTcB Int : 440 ms Normal sinus rhythm Normal ECG Confirmed by Florentin Rayo ([id number]), tape editor UVALDO LUGO ([id number]) on 04/02/2025 5:49:56 AM Referred By: Yannick Bourne Confirmed By: Florentin Rayo 04/02/25 0549 Date Florentin Rayo MD CC: Dr. Anupam Newby MD; Dr. Yannick Bourne MD; Clemencia Guadalupe DO Signed [facility] Activated partial thrombopla stin time (aPTT) in platelet poor plasma by coagulation aOrdered By: Anupam Newby on 04-01-2025 aPTT Coag (PPP) [Time] 25.2 s 24.1-36.2 [facility] Metabolic Profile (BMP )on 04-01-2025 BUN/CRE 14.7 RATIO Normal 10-20 [facility] Comment on above: Performed By: #### M 100.3000, L100.0100, L3890.6301, L3890.6102, M100.2000, L500.3400, L3890.6202 #### [facility] [address] [place], [address] Calcium [Mass/Vol] 9.4 mg/dL Normal 7.6-11.0 [facility] Comment on above: Performed By: #### M 100.3000, L100.0100, L3890.6301, L3890.6102, M100.2000, L500.3400, L3890.6202 #### [facility] [address] [place], [address] Chloride [Moles/Vol] 104 mmol/L Normal 98-108 [facility] Comment on above: Performed By: #### M 100.3000, L100.0100, L3890.6301, L3890.6102, M100.2000, L500.3400, L3890.6202 #### [facility] [address] [place], [address] CO2 [Moles/Vol] 23.6 mmol/L Normal 21.0-32.0 [facility] Comment on above: Performed By: #### M 100.3000, L100.0100, L3890.6301, L3890.6102, M100.2000, L500.3400, L3890.6202 #### [facility] [address] [place], [address] Creatinine [Mass/Vol] 0.92 mg/dL Normal 0.70-1.20 [facility] Comment on above: Performed By: #### M 100.3000, L100.0100, L3890.6301, L3890.6102, M100.2000, L500.3400, L3890.6202 #### [facility] [address] [place], [address] GAP 12 Normal 5-15 [facility] Comment on above: Performed By: #### M 100.3000, L100.0100, L3890.6301, L3890.6102, M100.2000, L500.3400, L3890.6202 #### [facility] [address] [place], [address] GFR/1.73 sq M.predicted among non-blacks MDRD (S/P/Bld) [Vol rate/Area] 75 mL/min/{1.73_m2} Normal >60 [facility] Comment on above: Result Comment: mL/m in/1.73m2 CKD-EPI Creatinine Equation (2020) Performed By: #### M 100.3000, L100.0100, L3890.6301, L3890.6102, M100.2000, L500.3400, L3890.6202 #### [facility] [address] [place], [address] Glucose [Mass/Vol] 103 mg/dL High 70-99 [facility] Comment on above: Performed By: #### M 100.3000, L100.0100, L3890.6301, L3890.6102, M100.2000, L500.3400, L3890.6202 #### [facility] [address] [place], [address] Potassium [Moles/Vol] 3.7 mmol/L Normal 3.3-5.1 [facility] Comment on above: Performed By: #### M 100.3000, L100.0100, L3890.6301, L3890.6102, M100.2000, L500.3400, L3890.6202 #### [facility] [address] [place], [address] Sodium [Moles/Vol] 139 mmol/L Normal 133-145 [facility] Comment on above: Performed By: #### M 100.3000, L100.0100, L3890.6301, L3890.6102, M100.2000, L500.3400, L3890.6202 #### [facility] [address] [place], [address] Urea nitrogen [Mass/Vol] 14 mg/dL Normal 4-19 [facility] Comment on above: Performed By: #### M 100.3000, L100.0100, L3890.6301, L3890.6102, M100.2000, L500.3400, L3890.6202 #### [facility] [address] [place], [address] Bilirubin directOrdered By: Anupam Newby on 04-01-2025 Bilirubin.direct [Mass/Vol] 0.26 mg/dL 0.00-0.30 [facility] Bilirubin, totalOrdered By: Anupam Newby on 04-01-2025 Bilirubin [Mass/Vol] 0.69 mg/dL 0.00-1.30 [facility] CBC-Complete Blood Cnt No Di ffon 04-01-2025 Erythrocyte distribution width (RBC) [Ratio] 13.0 % Normal 11.6-14.6 [facility] Comment on above: Performed By: #### M 100.3000, L100.0100, L3890.6301, L3890.6102, M100.2000, L500.3400, L3890.6202 #### [facility] [address] [place], [address] Hematocrit (Bld) [Volume fraction] 40.0 % Normal 37-47 [facility] Comment on above: Performed By: #### M 100.3000, L100.0100, L3890.6301, L3890.6102, M100.2000, L500.3400, L3890.6202 #### [facility] [address] [place], [address] Hemoglobin (Bld) [Mass/Vol] 14.1 g/dL Normal 12.0-15.0 [facility] Comment on above: Performed By: #### M 100.3000, L100.0100, L3890.6301, L3890.6102, M100.2000, L500.3400, L3890.6202 #### [facility] [address] [place], [address] MCH (RBC) [Entitic mass] 30.0 pg Normal 27.0-32.0 [facility] Comment on above: Performed By: #### M 100.3000, L100.0100, L3890.6301, L3890.6102, M100.2000, L500.3400, L3890.6202 #### [facility] [address] [place], [address] MCHC (RBC) [Mass/Vol] 35.3 g/dL Normal 32-36 [facility] Comment on above: Performed By: #### M 100.3000, L100.0100, L3890.6301, L3890.6102, M100.2000, L500.3400, L3890.6202 #### [facility] [address] [place], [address] MCV (RBC) [Entitic vol] 85.1 fL Normal 81-[address] [facility] Comment on above: Performed By: #### M 100.3000, L100.0100, L3890.6301, L3890.6102, M100.2000, L500.3400, L3890.6202 #### [facility] [address] [place], [address] Platelet mean volume (Bld) [Entitic vol] 9.7 fL Normal 6.2-12.0 [facility] Comment on above: Performed By: #### M 100.3000, L100.0100, L3890.6301, L3890.6102, M100.2000, L500.3400, L3890.6202 #### [facility] [address] [place], [address] Platelets (Bld) [#/Vol] 301 10*3/uL Normal 150-450 [facility] Comment on above: Performed By: #### M 100.3000, L100.0100, L3890.6301, L3890.6102, M100.2000, L500.3400, L3890.6202 #### [facility] [address] [place], [address] RBC (Bld) [#/Vol] 4.70 10*6/uL Normal 4.2-5.4 [facility] Comment on above: Performed By: #### M 100.3000, L100.0100, L3890.6301, L3890.6102, M100.2000, L500.3400, L3890.6202 #### [facility] [address] [place], [address] RDW SD 40.0 fl Normal 35.1-43.9 [facility] Comment on above: Performed By: #### M 100.3000, L100.0100, L3890.6301, L3890.6102, M100.1999, L500.3400, L3890.6202 #### [facility] [address] [place], [address] WBC (Bld) [#/Vol] 8.3 10*3/uL Normal 4.4-11.0 [facility] Comment on above: Performed By: #### M 100.3000, L100.0100, L3890.6301, L3890.6102, M100.2000, L500.3400, L3890.6202 #### [facility] [address] [place], [address] Hemoglobin A1con 04-01-2025 HbA1c (Bld) [Mass fraction] 6.3 % High <=5.6 [facility] Comment on above: Result Comment: Norm al < 5.7 % Prediabetic 5.7 - 6.4 % Diabetic >or= 6.5 % Please note range changes. Performed By: #### M 100.3000, L100.0100, L3890.6301, L3890.6102, M100.2000, L500.3400, L3890.6202 #### [facility] [address] [place], [address] Hemoglobin A1c percentageOrd ered By: Anupam Newby on 04-01-2025 HbA1c (Bld) [Mass fraction] 6.3 % High <5.7 [facility] Comment on above: Normal < 5.7 % Predi abetic 5.7 - 6.4 % Diabetic >or= 6.5 % Please note range changes. International normalized rat io (INR) calculationOrdered By: Anupam Newby on 04-01-2025 INR Coag (Bld) [Relative time] 1.0 {INR} [facility] - Chemistry and C hemistry - challengeOrdered By: Anupam Newby on 04-01-2025 AST [Catalytic activity/Vol] 20 U/L <32 [facility] Liver Profileon 04-01-2025 Albumin [Mass/Vol] 4.4 g/dL Normal 3.5-5.0 [facility] Comment on above: Performed By: #### M 100.3000, L100.0100, L3890.6301, L3890.6102, M100.2000, L500.3400, L3890.6202 #### [facility] [address] [place], [address] ALK PHOS 70 U/L Normal 35-104 [facility] Comment on above: Performed By: #### M 100.3000, L100.0100, L3890.6301, L3890.6102, M100.2000, L500.3400, L3890.6202 #### [facility] [address] [place], [address] ALT [Catalytic activity/Vol] 19 U/L Normal <=34 [facility] Comment on above: Performed By: #### M 100.3000, L100.0100, L3890.6301, L3890.6102, M100.2000, L500.3400, L3890.6202 #### [facility] [address] [place], [address] AST [Catalytic activity/Vol] 20 U/L Normal <=31 [facility] Comment on above: Performed By: #### M 100.3000, L100.0100, L3890.6301, L3890.6102, M100.2000, L500.3400, L3890.6202 #### [facility] [address] [place], [address] Bilirubin [Mass/Vol] 0.69 mg/dL Normal 0.00-1.30 [facility] Comment on above: Performed By: #### M 100.3000, L100.0100, L3890.6301, L3890.6102, M100.2000, L500.3400, L3890.6202 #### [facility] [address] [place], [address] Bilirubin.direct [Mass/Vol] 0.26 mg/dL Normal 0.00-0.30 [facility] Comment on above: Performed By: #### M 100.3000, L100.0100, L3890.6301, L3890.6102, M100.2000, L500.3400, L3890.6202 #### [facility] [address] [place], [address] Globulin (S) [Mass/Vol] 2.5 g/dL Normal 2.2-4.[address] [facility] Comment on above: Performed By: #### M 100.3000, L100.0100, L3890.6301, L3890.6102, M100.2000, L500.3400, L3890.6202 #### [facility] [address] [place], [address] T PROT 6.8 g/dL Normal 5.9-8.4 [facility] Comment on above: Performed By: #### M 100.3000, L100.0100, L3890.6301, L3890.6102, M100.2000, L500.3400, L3890.6202 #### [facility] [address] [place], [address] Partial Thromboplast Timeon 04-01-2025 aPTT Coag (Bld) [Time] 25.2 s Normal 24.1-36.2 [facility] Comment on above: Performed By: #### M 100.3000, L100.0100, L3890.6301, L3890.6102, M100.2000, L500.3400, L3890.6202 #### [facility] [address] [place], [address] Prothrombin Time w/INRon INR Coag (PPP) [Relative time] 1.0 {INR} Normal [facility] Comment on above: Performed By: #### M 100.3000, L100.0100, L3890.6301, L3890.6102, M100.2000, L500.3400, L3890.6202 #### [facility] [address] [place], [address] PT Coag (PPP) [Time] 13.3 s Normal 11.7-14.9 [facility] Comment on above: Performed By: #### M 100.3000, L100.0100, L3890.6301, L3890.6102, M100.1999, L500.3400, L3890.6202 #### [facility] [address] [place], [place], [address] Prothrombin timeOrdered By: Anupam Newby on 04-01-2025 PT Coag (PPP) [Time] 13.3 s 11.7-14.9 [facility] Serum globulin measurementOr dered By: Anupam Newby on 04-01-2025 Globulin (S) [Mass/Vol] 2.5 g/dL 2.2-4.2 [facility] Serum or plasma alanine coffey otransferase (ALT) measurementOrdered By: Anupam Newby on 04-01-2025 ALT [Catalytic activity/Vol] 19 U/L <35 [facility] or plasma albumin madyson urement (mass/volume)Ordered By: Anupam Newby on 04-01-2025 Albumin [Mass/Vol] 4.4 g/dL 3.5-5.0 [facility] Serum or plasma alkaline rolando sphatase measurementOrdered By: Anupam Newby on 04-01-2025 ALP [Catalytic activity/Vol] 70 U/L 35-104 [facility] Total proteinOrdered By: Isrrael Newby on 04-01-2025 Protein [Mass/Vol] 6.8 g/dL 5.9-8.4 [facility] Plastic Surgery Visit Report on 02-27-2025 Plastic Surgery Visit Report [facility] Plastic Reconstructive Surgery [address], [address] [place] [address] OFFICE VISIT Date of Service: 02/27/25 MR#: [id number] Acct: [id number] Name: PATRIA JOHNSON Rep #: [id number] : 1970 Provider: Dr. Yannick Bourne MD Age/Sex: 54/F Location: [facility] Status: Signed Intake Vital Signs 12/26/24 14:10 [...] 12/26/24 02/27/25 History subcutaneous pen injector (Mounjaro) [facility] Medical History Contraceptive management GERD (gastroesophageal reflux [...] op breast reduction Details: Breast Reduction Ehsan Johnson is a delightful 54-year-old female with past [...] and alternatives (more content not included)... Normal [facility] reportOrdered By: Chacho Last on 01-14-2025 Study report [facility] [address] [place], [place] [id number] SCRN MAMM (CAD)W/ZOLTAN GALLEGOS MR#: [id number] Acct: [id number] Name: GLORIAPATRIA RIGOBERTO Rep #: [id number] : 1970 F 54 From: Bautista Last MD PCP: Clemencia Guadalupe DO Status: REG CLI Study:SCRN MAMM (CAD)W/ZOLTAN BILAT Date of Exa m: 01/13/25 Exam# [id number] Ordering Dr: Santa Burk NP EXAM: SCRN MAMM (CAD)W/ZOLTAN BILAT DATE: 01/13/2025 [...] FOLLOW-UP Bilateral in 1 Year Reading Location: [place] [address] CC: MAGDA Burk; Clemencia Guadalupe DO ~ Addiction Treatment Counselor: Signed [facility] SCRN MAMM (CAD)W/ZOLTAN BILATo n 01-13-2025 SCRN MAMM (CAD)W/ZOLTAN BILAT [facility] [address] [place] [phone] SCRN MAMM (CAD)W/ZOLTAN BILAT MR#: [id number] Acct: [id number] Name: PATRIA JOHNSON Rep #: [id number] : 1970 F 54 From: Chacho holland MD PCP: Clemencia Guadalupe DO Status: REG CLI Study: SCRN MAMM (CAD)W/ZOLTAN BILAT Date of Exam: 12/28 05/23 Exam# [id number] Ordering Dr: Santa Burk NP [employer]-C EXAM: SCRN MAMM (CAD)W/ZOLTAN BILAT DATE: 01/13/2025 [...] FOLLOW-UP Bilateral in 1 Year Reading Location: [place] [address] CC: [employer] Santa Burk; Clemencia Guadalupe DO Addiction Treatment Counselor: Signed Normal [facility] Visit Report on 12-26-2024 Plastic Surgery Visit Report [facility] Plastic Reconstructive Surgery [address] [place] [address], [address] [place] [address] OFFICE VISIT Date of Service: 12/26/24 MR#: [id number] Acct: [id number] Name: PATRIA JOHNSON Rep #: [id number] : 1970 Provider: Dr. Yannick Bourne MD Age/Sex: 54/F Location: [facility] Status: Signed Intake Vital Signs 01/18/23 15:50 [...] evaluation for breast reduction consult and abdominoplasty [facility] Medical History Contraceptive management GERD (gastroesophageal reflux [...] HPI BREAST REDUCTION Details: Breast Reduction Ehsan Johnson is a delightful 54-year-old female with past [...] disease, gabriela (more content not included)... Normal [facility] CBC W Auto Differential pane l (Bld)on 05-20-2024 Basophils (Bld) [#/Vol] 10*3/uL Normal <0.11 A [facility] Comment on above: Order Comment: Speci men Type: BLOOD SPECIMEN Ordering Facility: [facility] Address: [address] [place] [address] Performed By: #### 5 7021-8 #### [facility] CLIA [id number] [address] [place] [address] [place] Basophils/100 WBC (Bld) 0.2 % Normal A [facility] Comment on above: Order Comment: Speci men Type: BLOOD SPECIMEN Ordering Facility: [facility] Address: [address] [place] [address] Performed By: #### 5 7021-8 #### [facility] CLIA [id number] [address] [place] [address] [place] Differential cell count method Nom (Bld) Auto Normal [facility] Comment on above: Order Comment: Speci men Type: BLOOD SPECIMEN Ordering Facility: [facility] Address: [address] [place] [address] Performed By: #### 5 7021-8 #### [facility] CLIA [id number] [address] [place] [address] [place] Eosinophils (Bld) [#/Vol] 0.51 10*3/uL High <0.46 [facility] Comment on above: Order Comment: Speci men Type: BLOOD SPECIMEN Ordering Facility: [facility] Address: [address] [place] [address] Performed By: #### 5 7021-8 #### [facility] CLIA [id number] [address] [place] [address] [place] Eosinophils/100 WBC (Bld) 4.8 % Normal [facility] Comment on above: Order Comment: Speci men Type: BLOOD SPECIMEN Ordering Facility: [facility] Address: [address] [place], [place] [address] Performed By: #### 5 7021-8 #### [facility] CLIA [id number] [address] [place] [address] [place] Erythrocyte distribution width (RBC) [Ratio] 12.8 % Normal 11.5-15.0 [facility] Comment on above: Order Comment: Speci men Type: BLOOD SPECIMEN Ordering Facility: [facility] Address: [address] [place] [address] Performed By: #### 5 7021-8 #### [facility] CLIA [id number] [address] [place] [address] [place] Hematocrit (Bld) [Volume fraction] 44.2 % Normal 36.0-46.0 [facility] Comment on above: Order Comment: Speci men Type: BLOOD SPECIMEN Ordering Facility: [facility] Address: [address] [place] [address] Performed By: #### 5 7021-8 #### [facility] CLIA [id number] [address] [place] [address] [place] Hemoglobin (Bld) [Mass/Vol] 15.0 g/dL Normal 11.5-15.5 [facility] Comment on above: Order Comment: Speci men Type: BLOOD SPECIMEN Ordering Facility: [facility] Address: [address] [place] [address] Performed By: #### 5 7021-8 #### [facility] CLIA [id number] [address] [place] [address] [place] Immature granulocytes (Bld) [#/Vol] 0.05 10*3/uL Normal <0.10 [facility] Comment on above: Order Comment: Speci men Type: BLOOD SPECIMEN Ordering Facility: [facility] Address: [address] [place] [address] Performed By: #### 5 7021-8 #### [facility] CLIA [id number] [address] [place] [address] [place] Immature granulocytes/100 WBC (Bld) 0.5 % Normal [facility] Comment on above: Order Comment: Speci men Type: BLOOD SPECIMEN Ordering Facility: [facility] Address: [address] [place] [address] Performed By: #### 5 7021-8 #### [facility] CLIA [id number] [address] [place] [address] [place] Lymphocytes (Bld) [#/Vol] 1.69 10*3/uL Normal 1.00-4.00 [facility] Comment on above: Order Comment: Speci men Type: BLOOD SPECIMEN Ordering Facility: [facility] Address: [address] [place] [address] Performed By: #### 5 7021-8 #### [facility] CLIA [id number] [address] [place] [address] [facility] [place] Lymphocytes/100 WBC (Bld) 15.9 % Normal [facility] Comment on above: Order Comment: Speci men Type: BLOOD SPECIMEN Ordering Facility: [facility] Address: [address] [place] [address] Performed By: #### 5 7021-8 #### [facility] CLIA [id number] [address] [place] [address] [place] MCH (RBC) [Entitic mass] 30.4 pg Normal 26.0-34.0 [facility] Comment on above: Order Comment: Speci men Type: BLOOD SPECIMEN Ordering Facility: [facility] Address: [address] [place] [address] Performed By: #### 5 7021-8 #### [facility] CLIA [id number] [address] [place] [address] [place] MCHC (RBC) [Mass/Vol] 33.9 g/dL Normal 30.5-36.0 [facility] Comment on above: Order Comment: Speci men Type: BLOOD SPECIMEN Ordering Facility: [facility] Address: [address] [place] [address] Performed By: #### 5 7021-8 #### [facility] CLIA [id number] [address] [place] [address] [place] MCV (RBC) [Entitic vol] 89.7 fL Normal 80.0-100.0 A [facility] Comment on above: Order Comment: Speci men Type: BLOOD SPECIMEN Ordering Facility: [facility] Address: [address] [place] [address] Performed By: #### 5 7021-8 #### [facility] CLIA [id number] [address] [place] [address] [place] Monocytes (Bld) [#/Vol] 0.66 10*3/uL Normal <0.87 [facility] Comment on above: Order Comment: Speci men Type: BLOOD SPECIMEN Ordering Facility: [facility] Address: [address] [place] [address] Performed By: #### 5 7021-8 #### [facility] CLIA [id number] [address] [place] [address] [place] Monocytes/100 WBC (Bld) 6.2 % Normal A [facility] Comment on above: Order Comment: Speci men Type: BLOOD SPECIMEN Ordering Facility: [facility] Address: [address] [place] [address] Performed By: #### 5 7021-8 #### [facility] CLIA [id number] [address] [place] [address] [place] Neutrophils (Bld) [#/Vol] 7.70 10*3/uL High 1.45-7.50 [facility] Comment on above: Order Comment: Speci men Type: BLOOD SPECIMEN Ordering Facility: [facility] Address: [address] [place] [address] Performed By: #### 5 7021-8 #### [facility] CLIA [id number] [address] [place] [address] [place] Neutrophils/100 WBC (Bld) 72.4 % Normal [facility] Comment on above: Order Comment: Speci men Type: BLOOD SPECIMEN Ordering Facility: [facility] Address: [address] [place] [address] Performed By: #### 5 7021-8 #### [facility] CLIA [id number] [address] [place] [address] [place] Nucleated RBC (Bld) [#/Vol] Normal [facility] Comment on above: Order Comment: Speci men Type: BLOOD SPECIMEN Ordering Facility: [facility] Address: [address] [place] [address] Performed By: #### 5 7021-8 #### [facility] CLIA [id number] [address] [place] [address] [place] Nucleated RBC/100 WBC (Bld) [Ratio] Normal [facility] Comment on above: Order Comment: Speci men Type: BLOOD SPECIMEN Ordering Facility: [facility] Address: [address] [place] [address] Performed By: #### 5 7021-8 #### [facility] CLIA [id number] [address] [place] [address] [place] Platelet mean volume (Bld) [Entitic vol] 9.2 fL Normal 9.0-12.7 [facility] Comment on above: Order Comment: Speci men Type: BLOOD SPECIMEN Ordering Facility: [facility] Address: [address] [place] [address] Performed By: #### 5 7021-8 #### [facility] CLIA [id number] [address] [place] [address] [place] Platelets (Bld) [#/Vol] 306 10*3/uL Normal 150-400 [facility] Comment on above: Order Comment: Speci men Type: BLOOD SPECIMEN Ordering Facility: [facility] Address: [address] [place] [address] Performed By: #### 5 7021-8 #### [facility] CLIA [id number] [address] [place] [address] [place] RBC (Bld) [#/Vol] 4.93 10*6/uL Normal 3.90-5.20 [facility] Comment on above: Order Comment: Speci men Type: BLOOD SPECIMEN Ordering Facility: [facility] Address: [address] [place] [address] Performed By: #### 5 7021-8 #### [facility] CLIA [id number] [address] [place] [address] [facility] WBC (Bld) [#/Vol] 10.63 10*3/uL Normal 3.70-11.00 [facility] Comment on above: Order Comment: Speci men Type: BLOOD SPECIMEN Ordering Facility: [facility] Address: [address] [place], [place] [address] Performed By: #### 5 7021-8 #### [facility] CLIA [id number] [address] [place] [address] [facility] Comprehensive metabolic 2000 panelon 05-20-2024 Albumin [Mass/Vol] 4.3 g/dL Normal 3.9-4.9 [facility] Comment on above: Order Comment: Speci men Type: BLOOD SPECIMEN Ordering Facility: [facility] Address: [address] [place] [address] Performed By: #### 2 4323-8, 3040-3, #### [facility] CLIA [id number] [address] [place] [address] [place] [facility] ALP [Catalytic activity/Vol] 77 U/L Normal 34-123 [facility] Comment on above: Order Comment: Speci men Type: BLOOD SPECIMEN Ordering Facility: [facility] Address: [address] [place] [id number] Performed By: #### 2 4323-8, 3040-3, 01441-4 #### [facility] CLIA [id number] [address] [place] [address] [facility] ALT With P-5'-P [Catalytic activity/Vol] 19 U/L Normal 7-38 [facility] Comment on above: Order Comment: Speci men Type: BLOOD SPECIMEN Ordering Facility: [facility] Address: [address] [place] [address] Performed By: #### 2 4323-8, 3040-3, #### [facility] CLIA [id number] [address] [place] [address] [place] Anion gap [Moles/Vol] 11 mmol/L Normal 8-15 [facility] Comment on above: Order Comment: Speci men Type: BLOOD SPECIMEN Ordering Facility: [facility] Address: [address] [place] [address] Performed By: #### 2 4323-8, 0-3, #### [facility] CLIA [id number] [address] [place] [address] [place] AST With P-5'-P [Catalytic activity/Vol] 17 U/L Normal 13-35 [facility] Comment on above: Order Comment: Speci men Type: BLOOD SPECIMEN Ordering Facility: [facility] Address: [address] [place] [address] Performed By: #### 2 4323-8, 3039-3, #### [facility] CLIA [id number] [address] [place] [address] [place] Bilirubin [Mass/Vol] 1.2 mg/dL Normal 0.2-1.3 [facility] Comment on above: Order Comment: Speci men Type: BLOOD SPECIMEN Ordering Facility: [facility] Address: [address] [place] [address] Performed By: #### 2 4323-8, 0-3, #### [facility] CLIA [id number] [address] [place] [address] [place] Calcium [Mass/Vol] 9.0 mg/dL Normal 8.5-10.2 [facility] Comment on above: Order Comment: Speci men Type: BLOOD SPECIMEN Ordering Facility: [facility] Address: [address] [place] [address] Performed By: #### 2 4323-8, 3040-3, #### [facility] CLIA [id number] [address] [place] [address] [place] Chloride [Moles/Vol] 98 mmol/L Normal 98-107 [facility] Comment on above: Order Comment: Specruperto madsen Type: BLOOD SPECIMEN Ordering Facility: [facility] Address: [address] [place] [address] Performed By: #### 2 4323-8, 3040-3, 35156-1 #### [facility] CLIA [id number] [address] [place] [address] [place] CO2 [Moles/Vol] 27 mmol/L Normal 22-30 [facility] Comment on above: Order Comment: Ivan madsen Type: BLOOD SPECIMEN Ordering Facility: [facility] Address: [address] [place] [address] Performed By: #### 2 4323-8, 3040-3, 14087-4 #### [facility] CLIA [id number] [address] [place] [address] [facility] Creatinine [Mass/Vol] 0.89 mg/dL Normal 0.58-0.96 [facility] Comment on above: Order Comment: Ivan madsen Type: BLOOD SPECIMEN Ordering Facility: [facility] Address: [address] [place] [address] Performed By: #### 2 4323-8, 3040-3, 25687-9 #### [facility] CLIA [id number] [address] [place] [address] [facility] Creatinine and Glomerular filtration rate.predicted panel (S/P/Bld) 78 mL/min/1.73m??? Normal >=60 [facility] Comment on above: Order Comment: Speci men Type: BLOOD SPECIMEN Ordering Facility: [facility] Address: [address] [place] [address] Result Comment: Mimi mated Glomerular Filtration Rate [...] actual GFR. Performed By: #### 2 4323-8, 3039-3, #### [facility] CLIA [id number] [address] [place] [address] [place] Glucose [Mass/Vol] 137 mg/dL High 74-99 [facility] Comment on above: Order Comment: Ivan madsen Type: BLOOD SPECIMEN Ordering Facility: [facility] Address: [address] [place] [address] Result Comment: The [place] [employer] (ADA) provides guidance for cutoff [...] Standards of Medical Care in Diabetes 2016, [place] [employer]. Diabetes Care. 2016.39(Suppl 1). Performed By: #### 2 4323-8, 3, #### [facility] CLIA [id number] [address] [place] [address] [place] Potassium [Moles/Vol] 4.3 mmol/L Normal 3.7-5.1 [facility] Comment on above: Order Comment: Ivan madsen Type: BLOOD SPECIMEN Ordering Facility: [facility] Address: [address] [place] [address] Performed By: #### 2 4323-8, 3, #### [facility] CLIA [id number] [address] [place] [address] [place] Protein [Mass/Vol] 7.2 g/dL Normal 6.3-8.0 [facility] Comment on above: Order Comment: Speci men Type: BLOOD SPECIMEN Ordering Facility: [facility] Address: [address] [place] [address] Performed By: #### 2 4323-8, 3040-3, #### [facility] CLIA [id number] [address] [place] [address] [facility] Sodium [Moles/Vol] 136 mmol/L Normal 136-144 [facility] Comment on above: Order Comment: Speci men Type: BLOOD SPECIMEN Ordering Facility: [facility] Address: [address] [place], [place] [address] Performed By: #### 2 4323-8, 0-3, #### [facility] CLIA [id number] [address] [place] [address] [facility] Urea nitrogen [Mass/Vol] 13 mg/dL Normal 7-21 [facility] Comment on above: Order Comment: Speci men Type: BLOOD SPECIMEN Ordering Facility: [facility] Address: [address] [place], [place] [address] Performed By: #### 2 4323-8, 0-3, #### [facility] CLIA [id number] [address] [place] [address] [facility] ED PROV NOTEon 05-20-2024 ED PROV NOTE HNO ID: [id number] Author: CAROLINA SANTANA MD Service: Emergency Medicine Author Type: Physician Type: ED Provider Notes Filed: 05/20/2024 17:09 Note Text: ED Provider Note Patient Name: Patria Johnson : 1970 SERVICE DATE: 05/20/24 History Patient presents with: Nausea AND Vomiting Patria Johnson is a 53 year old female with [...] and flank pain. Skin: Negative for rash. Allergic/Immunologic : Negative for environmental allergies, food allergies and immunocompromised state. Neurological: Positive for headaches. Negative for syncope and light-headedness. Psychiatric/Behavior al: Negative for confusion. The patient is not [...] History obtain (more content not included)... Normal [facility] Lipase SerPl-cCncon 05-20-20 24 Lipase [Catalytic activity/Vol] 39 U/L Normal 16-61 [facility] Comment on above: Order Comment: Ivan madsen Type: BLOOD SPECIMEN Ordering Facility: [facility] Address: [address] [place], [place] [address] Performed By: #### 2 4323-8, 3040-3, 23036-0 #### [facility] CLIA [id number] [address] [place], [place] [id number] [place] Magnesium SerPl-mCncon 05-20 Magnesium [Mass/Vol] 2.0 mg/dL Normal 1.7-2.3 [facility] Comment on above: Order Comment: Speci men Type: BLOOD SPECIMEN Ordering Facility: [facility] Address: [address] [place] [address] Performed By: #### 2 4323-8, 3040-3, 17895-1 #### [facility] CLIA [id number] [address] [place] [address] [place] Urinalysis complete panel (U )on 05-20-2024 Bacteria LM.HPF (Urine sed) [#/Area] Rare Abnormal None Seen [facility] Comment on above: Order Comment: Speci men Type: URINE SPECIMEN Ordering Facility: [facility] Address: [address] [place] [address] Performed By: #### 2 4356-8 #### [facility] CLIA [id number] [address] [place] [id number] [place] [facility] Bilirubin Ql (U) Negative Normal Negative [facility] Comment on above: Order Comment: Speci men Type: URINE SPECIMEN Ordering Facility: [facility] Address: [address] [place] [address] Performed By: #### 2 4356-8 #### [facility] CLIA [id number] [address] [place] [address] [facility] [place] Clarity (Unsp spec) Slightly Cloudy Abnormal Clear [facility] Comment on above: Order Comment: Speci men Type: URINE SPECIMEN Ordering Facility: [facility] Address: [address] [place] [address] Performed By: #### 2 4356-8 #### [facility] CLIA [id number] [address] [place] [address] [facility] [place] Color (U) Yellow Normal Yellow [facility] Comment on above: Order Comment: Speci men Type: URINE SPECIMEN Ordering Facility: [facility] Address: [address] [place] [address] Performed By: #### 2 4356-8 #### [facility] CLIA [id number] [address] [place] [address] [facility] [place] Epithelial cells LM.HPF (Urine sed) [#/Area] Moderate Normal [facility] Comment on above: Order Comment: Speci men Type: URINE SPECIMEN Ordering Facility: [facility] Address: [address] [place] [address] Performed By: #### 2 4356-8 #### [facility] CLIA [id number] [address] [place] [address] [facility] Glucose Test strip (U) [Mass/Vol] Negative Normal Negative [facility] Comment on above: Order Comment: Speci men Type: URINE SPECIMEN Ordering Facility: [facility] Address: [address] [place] [address] Performed By: #### 2 4356-8 #### [facility] CLIA [id number] [address] [place] [address] [facility] Hemoglobin Ql (U) Negative Normal Negative [facility] Comment on above: Order Comment: Speci men Type: URINE SPECIMEN Ordering Facility: [facility] Address: [address] [place] [address] Performed By: #### 2 4356-8 #### [facility] CLIA [id number] [address] [place] [address] [facility] Ketones Ql (U) 2+ Abnormal Negative [facility] Comment on above: Order Comment: Speci men Type: URINE SPECIMEN Ordering Facility: [facility] Address: [address] [place] [address] Performed By: #### 2 4356-8 #### [facility] CLIA [id number] [address] [place] [address] [facility] Leukocyte esterase Test strip Ql (U) Negative Normal Negative [facility] Comment on above: Order Comment: Speci men Type: URINE SPECIMEN Ordering Facility: [facility] Address: [address] [place] [address] Performed By: #### 2 4356-8 #### [facility] CLIA [id number] [address] [place] [address] [place] Nitrite Ql (U) Negative Normal Negative [facility] [facility] Comment on above: Order Comment: Speci men Type: URINE SPECIMEN Ordering Facility: [facility] Address: [address] [place] [address] Performed By: #### 2 4356-8 #### [facility] CLIA [id number] [address] [place] [address] [place] [facility] pH (U) 7.0 [pH] Normal 5.0-8.0 [facility] Comment on above: Order Comment: Speci men Type: URINE SPECIMEN Ordering Facility: [facility] Address: [address] [place] [address] Performed By: #### 2 4356-8 #### [facility] CLIA [id number] [address] [place] [address] [place] [facility] Protein (U) [Mass/Vol] Negative Normal Negative [facility] Comment on above: Order Comment: Speci men Type: URINE SPECIMEN Ordering Facility: [facility] Address: [address] [place] [address] Performed By: #### 2 4356-8 #### [facility] CLIA [id number] [address] [place] [address] [place] [facility] RBC LM.HPF (Urine sed) [#/Area] 0-3 /HPF Normal 0-3 /HPF [facility] Comment on above: Order Comment: Speci men Type: URINE SPECIMEN Ordering Facility: [facility] Address: [address] [place] [address] Performed By: #### 2 4356-8 #### [facility] CLIA [id number] [address] [place] [address] [place] Specific gravity (U) [Rel density] 1.020 Normal 1.005-1.030 [facility] Comment on above: Order Comment: Speci men Type: URINE SPECIMEN Ordering Facility: [facility] Address: [address] [place] [address] Performed By: #### 2 4356-8 #### [facility] CLIA [id number] [address] [place] [address] [place] Urobilinogen Ql (U) 0.2 EU/dL Normal 0.2-1.0 EU/dL [facility] Comment on above: Order Comment: Speci men Type: URINE SPECIMEN Ordering Facility: [facility] Address: [address] [place] [address] Performed By: #### 2 4356-8 #### [facility] CLIA [id number] [address] [place] [address] [facility] [place] WBC LM.HPF (Urine sed) [#/Area] 0-5 /HPF Normal 0-5 /HPF [facility] Comment on above: Order Comment: Speci men Type: URINE SPECIMEN Ordering Facility: [facility] Address: [address] [place] [address] Performed By: #### 2 4356-8 #### [facility] CLIA [id number] [address] [place] [address] [facility] Basophil percentageOrdered B y: Gin Guadalupe on 03-02-2023 Potassium [Moles/Vol] 3.7 mmol/L 3.5-5.1 [facility] Absolute lymphocyte countOrd ered By: Gin Guadalupe on 02-15-2023 Lymphocytes Auto (Unsp spec) [#/Vol] 3.57 10*3/uL 0.83-4.51 [place] Basophil percentageOrdered B y: Gin Guadalupe on 02-15-2023 Basophils/100 WBC (Bld) 0.7 % 0-[address] [facility] Bilirubin [Mass/Vol] 0.80 mg/dL 0.20-1.00 [facility] Comment on above: For patients on eltr ombopag therapy, use of Dimension [place] TBIL is not recommended. Chloride [Moles/Vol] 104 mmol/L 98-107 [facility] Eosinophils/100 WBC (Bld) 4.0 % 0-5 [place] Glucose [Mass/Vol] 135 mg/dL 74-106 [facility] Comment on above: Fasting Glucose resu lt greater than or equal to 126 mg/dL suggests DIABETES MELLITUS per A.D.A. criteria. Neutrophils (Bld) [#/Vol] 5.2 10*3/uL 2.0-7.7 [place] Neutrophils/100 WBC (Bld) 52.0 % 47-70 [place] Potassium [Moles/Vol] 3.3 mmol/L 3.5-5.1 [facility] Protein [Mass/Vol] 7.3 g/dL 6.4-8.2 [facility] Sodium [Moles/Vol] 136 mmol/L 136-145 [facility] WBC (Bld) [#/Vol] 9.9 10*3/uL 4.4-11.0 [facility] Blood erythrocytes count (nu mber/volume)Ordered By: Gin Guadalupe on 02-15-2023 RBC (Bld) [#/Vol] 4.99 10*6/uL 4.2-5.4 [facility] Blood hemoglobin measurement (mass/volume)Ordered By: Gin Guadalupe on 02-15-2023 Hemoglobin (Bld) [Mass/Vol] 14.7 g/dL 12.0-15.0 [place] Blood lymphocytes/100 leukoc ytesOrdered By: Gin Guadalupe on 02-15-2023 Lymphocytes/100 WBC (Bld) 35.9 % 19-41 [place] Blood monocytes/100 leukocyt esOrdered By: Gin Guadalupe on 02-15-2023 Monocytes/100 WBC (Bld) 6.9 % 0-10 [facility] Blood platelet mean volumeOr dered By: Gin Guadalupe on 02-15-2023 Platelet mean volume (Bld) [Entitic vol] 10.1 fL 6.2-12.0 [place] Determination of erythrocyte mean corpuscular volume (MCV)Ordered By: Gin Guadalupe on 02-15-2023 MCV (RBC) [Entitic vol] 87.4 fL 81-99 [facility] Hematocrit Auto (Bld) [Volum e fraction]Ordered By: Gin Guadalupe on 02-15-2023 Hematocrit (Bld) [Volume fraction] 43.6 % 37-47 [place] [facility] - Chemistry and C hemistry - challengeOrdered By: Gin Guadalupe on 02-15-2023 ALP [Catalytic activity/Vol] 70 U/L 45-117 [place] ALT [Catalytic activity/Vol] 31 U/L 13-56 [place] CO2 [Moles/Vol] 26.0 mmol/L 21.0-32.0 [place] Globulin (S) [Mass/Vol] 3.5 g/dL 2.2-4.2 [facility] Urea nitrogen/Creatinine [Mass ratio] 12.3 mg/mg 10-20 [place] [facility] - Hematology and Cell countsOrdered By: Gin Guadalupe on 02-15-2023 Erythrocyte distribution width (RBC) [Entitic vol] 41.1 fL 35.1-43.9 [place] Erythrocyte distribution width (RBC) [Ratio] 13.0 % 11.6-14.6 [place] Immature granulocytes/100 WBC (Bld) 0.500 % 0.0-0.9 [place] Comment on above: IG% - Immature Granu locytes (promyelocytes, myelocytes and metamyelocytes) > 1% indicates that a LEFT SHIFT is Present. MCH (RBC) [Entitic mass] 29.5 pg 27.0-32.0 [place] Nucleated RBC/100 WBC (Bld) [Ratio] 0 % 0-5 [place] MCHC Auto (RBC) [Mass/Vol]Or dered By: Gin Guadalupe on 02-15-2023 MCHC (RBC) [Mass/Vol] 33.7 g/dL 32-36 [facility] No Panel InformationOrdered By: Gin Guadalupe on 02-15-2023 Estimated GFR (MDRD) Amer 85 mL/min >60 [place] Comment on above: GFR Calc Estimated GFR (MDRD) Non-Af Amer 71 mL/min >60 [place] Comment on above: Non- GFR Calc Thyroid Stimulating Hormone (TSH) 0.91 uIU/mL 0.358-3.74 [place] Platelets bldOrdered By: Lalito Guadalupe on 02-15-2023 Platelets (Bld) [#/Vol] 329 10*3/uL 150-450 [place] Serum or plasma albumin madyson urement (mass/volume)Ordered By: Gin Guadalupe on 02-15-2023 Albumin [Mass/Vol] 3.8 g/dL 3.2-5.0 [facility] Serum or plasma albumin/glob ulin mass ratioOrdered By: Gin Guadalupe on 02-15-2023 Albumin/Globulin [Mass ratio] 1.1 {ratio} 0.9-2.4 [place] Serum or plasma calcium madyson urement (mass/volume)Ordered By: Gin Guadalupe on 02-15-2023 Calcium [Mass/Vol] 9.3 mg/dL 8.5-10.1 [facility] Serum or plasma creatinine m easurement (mass/volume)Ordered By: Gin Guadalupe on 02-15-2023 Creatinine [Mass/Vol] 0.90 mg/dL 0.55-1.02 [facility] Comment on above: The validity of the calculated GFR & GFRAA in patients over 70 years has not been determined. Clinical correlation is essential. Serum or plasma urea nitroge n measurement (mass/volume)Ordered By: Gin Guadalupe on 02-15-2023 Urea nitrogen [Mass/Vol] 11 mg/dL 7-18 [place] Thin prep Papanicolaou smear with manual screeningOrdered By: Gin Guadalupe on 02-15-2023 Thin prep Papanicolaou smear with manual screening 24 U/L 15-37 [place] Thin prep Papanicolaou smear with manual screening 6 5-15 [place] Thin prep Papanicolaou smear with manual screening 6.8 mg/L NO RANGE EST. [place] Whole blood hemoglobin A1c/t otal hemoglobin ratio (mass fraction)Ordered By: Gin Guadalupe on 02-15-2023 HbA1c (Bld) [Mass fraction] 7.5 % 3.8-5.6 [place] Comment on above: Normal < 5.7 % Predi abetic 5.7 - 6.4 % Diabetic >or= 6.5 % Please note range changes. Basophil percentageOrdered B y: Dr. Majano on 02-02-2023 Cholesterol [Mass/Vol] 182 mg/dL <200 [facility] Comment on above: <200 mg/dL Desirable 200-240 mg/dL Borderline >240 mg/dL High Risk Triglyceride [Mass/Vol] 166 mg/dL <199 [facility] Comment on above: The drugs N-Acetylcy steine and Metamizole may falsely depress this assay.Serum Triglycerides Reference Interval Normal <150 mg/dL Borderline high 150 - 199 mg/dL High 200 - 499 mg/dL Very High > or = 500 mg/dL Laboratory - Chemistry and C hemistry - challengeOrdered By: Dr. Majano on 02-02-2023 Free T4 [Mass/Vol] 1.11 ng/dL 0.76-1.46 [facility] No Panel InformationOrdered By: Dr. Majano on 02-02-2023 Follicle Stimulating Hormone 15.5 mIU/mL [place] Comment on above: NORMAL REFERENCE RAN GES FEMALE FOLLICULAR 2.3 - 12.6 mIU/mL MID-CYCLE PEAK 5.2 - 17.5 mIU/mL LUTEAL 1.7 - 12.9 mIU/mL POST-MENOPAUSAL ON MHT 5.9 - 72.8 mIU/mL NOT ON MHT 12.7 - 132.2 mlU/mL MALE 0.7 - 10.8 mIU/mL Luteinizing Hormone 7.5 mIU/mL [facility] Comment on above: NORMAL REFERENCE RAN GES FEMALE FOLLICULAR 1.9 - 26.2 mIU/mL MID-CYCLE PEAK 22.8 - 76.1 mIU/mL LUTEAL 0.6 - 16.6 mIU/mL POST-MENOPAUSAL ON MHT 1.1 - 52.4 mIU/mL NOT ON MHT 8.6 - 61.8 mIU/mL MALE 1.2 - 10.6 mIU/mL Thyroid Stimulating Hormone (TSH) 0.86 uIU/mL 0.358-3.74 [place] Vitamin D 25-Hydroxy 34.8 ng/mL [facility] Comment on above: Vitamin D 25(OH) Sta tus Range Deficiency <20 ng/mL (50nmol/L) Insufficiency 20 - 30 ng/mL (50 - 75 nmol/L) Sufficiency 30 - 100 ng/mL (75 - 250 nmol/L) Toxicity >100 ng/mL (>250 nmol/L) Serum or plasma cholesterol in HDL measurement (mass/volume)Ordered By: Dr. Majano on 02-02-2023 Cholesterol in HDL [Mass/Vol] 31 mg/dL >40 [place] Comment on above: The drugs N-Acetylcy steine and Metamizole may falsely depress this assay. Reference Range HDL <40 mg/dL Low HDL Cholesterol HDL >or= 60 mg/dL High HDL Cholesterol Serum or plasma cholesterol in VLDL measurement (mass/volume)Ordered By: Dr. Majano on 02-02-2023 Cholesterol in VLDL [Mass/Vol] 33 mg/dL 5-40 [place] Serum or plasma low density lipoprotein (LDL) cholesterol measurement (mass/volume)Ordered By: Dr. Majano on 02-02-2023 Cholesterol in LDL [Mass/Vol] 118 mg/dL 0-130 [place] Cervical or vagninal specime n microscopic examination by cytology stain (reported asOrdered By: Dr. Majano on 01-18-2023 Cytology report Cyto stain Doc (Cvx/Vag) Comment . [place] Comment on above: The Pap smear is [...] 33,Ordered By: Dr. Majano on 01-18-2023 HPV 16+18+31+33+35+39+45+51+ 52+56+58+59+66+68 DNA Probe+sig amp Ql (Cvx) Negative Negative [place] Comment on above: This nucleic acid am plification test detects fourteen high-risk HPV types (16,18,31,33,35,39,45,51,52,56,58,59,66,68)without differentiation. Laboratory - CytologyOrdered By: Dr. Majano on 01-18-2023 Quality Control Assistant Cyto stain Nom (Cvx/Vag) [ID] Comment . [place] Comment on above: Scotty Haney totechnologist (ASCP) Laboratory - Miscellaneous t estsOrdered By: Dr. Majano on 01-18-2023 Service comment (Unsp spec) [Interp] Comment . [place] Comment on above: This liquid based Th inPrep(R) pap test was screened withthe use of an image guided system. Service comment (Unsp spec) [Interp] . . [place] Liquid-based cerv Pap + CT/G C by DIVINA w reflex to high-risk HPV for ASCUSOrdered By: Dr. Majano on 01-18-2023 Cytology report Cyto stain.thin prep Doc (Cvx/Vag) Comment . [place] Comment on above: Criteria not met, HP V Genotype not performed.Performed at: [facility] [id number] Director: Zuleika Hickey MD, Phone: [phone] at: =[facility] - [facility] [id number] Director: Zuleika Hickey MD, Phone: [phone] No Panel InformationOrdered By: Dr. Majano on 01-18-2023 Pathology report final diagnosis Narrative Comment . [place] Comment on above: NEGATIVE FOR INTRAEP ITHELIAL LESION OR MALIGNANCY.PREDOMINANCE OF COCCOBACILLI CONSISTENT WITH SHIFT IN VAGINAL ELIZABETH ISPRESENT. Absolute lymphocyte counton 01-31-2022 Lymphocytes Auto (Unsp spec) [#/Vol] 3.57 10*3/uL 0.83-4.51 [place] Work Phone: Basophil percentageon 2021 Basophils/100 WBC (Bld) 0.6 % 0-1 [facility] Work Phone: Bilirubin [Mass/Vol] 0.50 mg/dL 0.20-1.00 [facility] Work Phone: Comment on above: For patients on eltr ombopag therapy, use of Dimension [place] TBIL is not recommended. Chloride [Moles/Vol] 101 mmol/L 98-107 [facility] Work Phone: Eosinophils/100 WBC (Bld) 2.6 % 0-5 [place] Work Phone: Glucose [Mass/Vol] 106 mg/dL 74-106 [facility] Work Phone: Comment on above: Fasting Glucose resu lt from 100 to 125 mg/dL suggests IMPAIRED HOMEOSTASIS per A.D.A. criteria. Neutrophils (Bld) [#/Vol] 7.2 10*3/uL 2.0-7.7 [place] Work Phone: Neutrophils/100 WBC (Bld) 58.8 % 47-70 [place] Work Phone: [phone] Potassium [Moles/Vol] 3.6 mmol/L 3.5-5.1 [facility] Work Phone: Protein [Mass/Vol] 7.5 g/dL 6.4-8.2 [facility] Work Phone: Sodium [Moles/Vol] 136 mmol/L 136-145 [facility] Work Phone: WBC (Bld) [#/Vol] 12.3 10*3/uL 4.4-11.0 [facility] Work Phone: Blood erythrocytes count (nu mber/volume)on 01-31-2022 RBC (Bld) [#/Vol] 4.91 10*6/uL 4.2-5.4 [facility] Work Phone: Blood hemoglobin measurement (mass/volume)on 01-31-2022 Hemoglobin (Bld) [Mass/Vol] 14.9 g/dL 12.0-15.0 [place] Work Phone: Blood lymphocytes/100 leukoc yteson 01-31-2022 Lymphocytes/100 WBC (Bld) 29.1 % 19-41 [place] Work Phone: Blood monocytes/100 leukocyt eson 01-31-2022 Monocytes/100 WBC (Bld) 8.2 % 0-10 [facility] Work Phone: Blood platelet mean volumeon 01-31-2022 Platelet mean volume (Bld) [Entitic vol] 9.6 fL 6.2-12.0 [place] Work Phone: Determination of erythrocyte mean corpuscular volume (MCV)on 01-31-2022 MCV (RBC) [Entitic vol] 88.2 fL 81-99 [facility] Work Phone: [phone] Hematocrit Auto (Bld) [Volum e fraction]on 01-31-2022 Hematocrit (Bld) [Volume fraction] 43.3 % 37-47 [place] Work Phone: [phone] Laboratory - Chemistry and C hemistry - challengeon 01-31-2022 ALP [Catalytic activity/Vol] 66 U/L 45-117 [place] Work Phone: [phone] ALT [Catalytic activity/Vol] 41 U/L 13-56 [place] Work Phone: [phone] CO2 [Moles/Vol] 29.0 mmol/L 21.0-32.0 [place] Work Phone: [phone] Globulin (S) [Mass/Vol] 3.7 g/dL 2.2-4.2 [facility] Work Phone: [phone] Urea nitrogen/Creatinine [Mass ratio] 11.2 mg/mg 10-20 [place] Work Phone: [phone] Laboratory - Hematology and Cell countson 01-31-2022 Erythrocyte distribution width (RBC) [Entitic vol] 43.4 fL 35.1-43.9 [place] Work Phone: [phone] Erythrocyte distribution width (RBC) [Ratio] 13.3 % 11.6-14.6 [place] Work Phone: [phone] Immature granulocytes/100 WBC (Bld) 0.700 % 0.0-0.9 [place] Work Phone: [phone] Comment on above: IG% - Immature Granu locytes (promyelocytes, myelocytes and metamyelocytes) > 1% indicates that a LEFT SHIFT is Present. MCH (RBC) [Entitic mass] 30.3 pg 27.0-32.0 [place] Work Phone: [phone] Nucleated RBC/100 WBC (Bld) [Ratio] 0 % 0-5 [place] Work Phone: [phone] MCHC Auto (RBC) [Mass/Vol]on 01-31-2022 MCHC (RBC) [Mass/Vol] 34.4 g/dL 32-36 [facility] Work Phone: No Panel Informationon 01-31 Estimated GFR (MDRD) Amer 86 mL/min >60 [place] Work Phone: [phone] Comment on above: GFR Calc Estimated GFR (MDRD) Non-Af Amer 71 mL/min >60 [place] Work Phone: Comment on above: Non- GFR Calc Thyroid Stimulating Hormone (TSH) 0.86 uIU/mL 0.358-3.74 [place] Work Phone: [phone] Vitamin D 25-Hydroxy 49.0 ng/mL [facility] Work Phone: Comment on above: Vitamin D 25(OH) Sta tus Range Deficiency <20 ng/mL (50nmol/L) Insufficiency 20 - 30 ng/mL (50 - 75 nmol/L) Sufficiency 30 - 100 ng/mL (75 - 250 nmol/L) Toxicity >100 ng/mL (>250 nmol/L) Platelets bldon 01-31-2022 Platelets (Bld) [#/Vol] 365 10*3/uL 150-450 [place] Work Phone: [phone] Serum or plasma albumin madyson urement (mass/volume)on 01-31-2022 Albumin [Mass/Vol] 3.8 g/dL 3.2-5.0 [facility] Work Phone: [phone] Serum or plasma albumin/glob ulin mass ratioon 01-31-2022 Albumin/Globulin [Mass ratio] 1.0 {ratio} 0.9-2.4 [place] Work Phone: [phone] Serum or plasma calcium madyson urement (mass/volume)on 01-31-2022 Calcium [Mass/Vol] 8.8 mg/dL 8.5-10.1 [facility] Work Phone: [phone] Serum or plasma creatinine m easurement (mass/volume)on 01-31-2022 Creatinine [Mass/Vol] 0.89 mg/dL 0.55-1.02 [facility] Work Phone: Comment on above: The validity of the calculated GFR & GFRAA in patients over 70 years has not been determined. Clinical correlation is essential. Serum or plasma urea nitroge n measurement (mass/volume)on 01-31-2022 Urea nitrogen [Mass/Vol] 10 mg/dL 7-18 [place] Work Phone: Thin prep Papanicolaou smear with manual screeningon 01-31-2022 Thin prep Papanicolaou smear with manual screening 24 U/L 15-37 [place] Work Phone: Thin prep Papanicolaou smear with manual screening 6 5-15 [place] Work Phone: Laboratory - Microbiology an d Antimicrobial susceptibilityon 12-28-2021 SARS-CoV-2 (COVID-19) RNA DIVINA+probe Ql (Unsp spec) Not detected Not Detect [place] Work Phone: Comment on above: Normal Reference Ran ge: Not DetectedMethod:(RT-PCR) real-time reverse transcriptase PCRLuminex [employer] Instrument*The Food and Drug Administration (FDA) has issued an Emergency Use Authorization (EAU) for the [employer] SARS-CoV-2 Assay for the rapid detection of [...] Informationon 12-28 Influenza Types A,B Direct FA (LASHELL) [place] Work Phone: ED NOTEon 05-24-2019 ED NOTE HNO ID: [id number] Author: Gin GrahamRn) TRESSA Merritt Service: Emergency [...] anything else to help you? No Normal [facility] ED NOTE HNO ID: [id number] Author: Nora Reinoso) TRESSA Hua Service: Emergency Medicine Author Type: Registered Nurse Type: ED Notes Filed: 05/24/2019 12:33 AM Note Text: Reviewed dc orders with pt, scripts x 3 reviewed. Pt verbalized understanding. Denies any further needs, encouraged pt to f/u with pmd next week. Pt advised no driving for 6 hours d/t meds received. Pt ambulatory with steady gait for dc home per family. Normal [facility] ED NOTE HNO ID: [id number] Author: Nora Hua RN Service: Emergency Medicine Author Type: Registered Nurse Type: ED Notes Filed: 05/23/2019 11:56 PM Note Text: Patient informed: the name of medication, why we are giving it, possible side effects, what they may expect to feel, and was offered a chance to ask questions, prior to the administration of benadryl, pepcid, prednisone Normal [facility] ED NOTE HNO ID: [id number] Author: Nora Hua RN Service: Emergency Medicine Author Type: Registered Nurse Type: ED Notes Filed: 05/24/2019 12:10 AM Note Text: Pt to ED with c/o my feet have been itching for past 6 months, and my hands have been itching for at least 6 wk, my scalp also itches." pt denies any rash, no new exposures. Has history of similar issues. Normal [facility] ED PROV NOTEon 05-24-2019 ED PROV NOTE HNO ID: [id number] Author: Carolina Santana MD Service: Emergency Medicine Author Type: Physician Type: ED Provider Notes Filed: 05/24/2019 12:04 AM Note Text: ED Provider Note Patient Name: Yohana Johnson SERVICE DATE: 05/23/19 History Patient presents with: Pruritus Yohana Johnson is a 48 year old female with [...] for color change, pallor, rash and wound. Allergic/Immunologic : Positive for environmental allergies. Negative for food allergies and immunocompromised state. Neurological: Negative for weakness and numbness. Psychiatric/Behavior al: Negative for confusion. The patient is not nervous/anxious. 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 Vital Signs Date Time Vital Sign Value Performing Clinician Angeles parker 07-24-2025 11:28-0400 Diastolic blood pressure 86 mm[Hg] Clemencia Zuniganger DO Work Phone: [place] 07-24-2025 11:28-0400 Heart rate 95 /min Clemencia Collins DO Work Phone: [place] 07-24-2025 11:28-0400 Respiratory rate 18 /min Clemencia Guadalupe DO Work Phone: [place] 07-24-2025 11:28-0400 SaO2% (BldA) [Mass fraction] 97 % Clemencia Collins DO Work Phone: [phone])088-109660 [place] [address] 07-24-2025 11:28-0400 Systolic blood pressure 130 mm[Hg] Clemencia Collins DO Work Phone: [phone])924-127934 [place] [address] 07-11-2025 11:09-0400 Body height 162.56 cm Clemencia Collins DO Work Phone: [phone])039-545934 [place] [address] 07-11-2025 11:09-0400 Body temperature 97.9 [degF] Clemencia Collins DO Work Phone: 5(258)150-182434 [place] [address] 07-11-2025 11:09-0400 Diastolic blood pressure 98 mm[Hg] Clemencia Collins DO Work Phone: 6(011)671-618534 [place] [address] 07-11-2025 11:09-0400 Heart rate 81 /min Clemencia Collins DO Work Phone: 4(397)308-353934 [place] [address] 07-11-2025 11:09-0400 Respiratory rate 18 /min Clemencia Collins DO Work Phone: [phone])135-853034 [place] [address] 07-11-2025 11:09-0400 SaO2% (BldA) [Mass fraction] 97 % Clemencia Collins DO Work Phone: 4(326)877-839734 [place] [address] 07-11-2025 11:09-0400 Systolic blood pressure 144 mm[Hg] Clemencia Collins DO Work Phone: 9(393)117-549034 [place] [address] 06-20-2025 10:38-0400 Body height 162.56 cm Clemencia Collins DO Work Phone: 9(489)561-929734 [place] [address] 06-20-2025 10:38-0400 Body temperature 99.3 [degF] Clemencia Collins DO Work Phone: 0(530)363-771934 [place] [address] 06-20-2025 10:38-0400 Diastolic blood pressure 85 mm[Hg] Clemencia Collins DO Work Phone: 3(348)888-885660 [place] [address] 06-20-2025 10:38-0400 Heart rate 100 /min Clemencia Collins DO Work Phone: [place] 06-20-2025 10:38-0400 Respiratory rate 18 /min Clemencia Collins DO Work Phone: 9(170)329-257760 [place] [address] 06-20-2025 10:38-0400 SaO2% (BldA) [Mass fraction] 96 % Clemencia Collins DO Work Phone: 5(206)156-152760 [place] [address] 06-20-2025 10:38-0400 Systolic blood pressure 134 mm[Hg] Clemencia Collins DO Work Phone: 0(878)149-465460 [place] [address] 06-13-2025 10:53-0400 Body height 162.56 cm Clemencia Collins DO Work Phone: 5(511)998-225534 [place] [address] 06-13-2025 10:53-0400 Body temperature 99.3 [degF] Clemencia Collins DO Work Phone: 8(954)054-831260 [place] [address] 06-13-2025 10:53-0400 Diastolic blood pressure 93 mm[Hg] Clemencia Collins DO Work Phone: 1(301)831-093760 [place] [address] 06-13-2025 10:53-0400 Heart rate 98 /min Clemencia Collins DO Work Phone: 0(006)224-583760 [place] [address] 06-13-2025 10:53-0400 Respiratory rate 18 /min Clemencia Collins DO Work Phone: 0(148)875-600160 [place] [address] 06-13-2025 10:53-0400 SaO2% (BldA) [Mass fraction] 95 % Clemencia Collins DO Work Phone: 4(667)365-804360 [place] [address] 06-13-2025 10:53-0400 Systolic blood pressure 149 mm[Hg] Clemencia Collins DO Work Phone: [place] 06-05-2025 11:42-0400 Diastolic blood pressure 85 mm[Hg] Clemencia Collins DO Work Phone: 5(696)743-286960 [place] [address] 06-05-2025 11:42-0400 Heart rate 110 /min Clemencia Collins DO Work Phone: 8(148)672-224860 [place] [address] 06-05-2025 11:42-0400 Respiratory rate 18 /min Clemencia Collins DO Work Phone: 8(959)886-701534 [place] [address] 06-05-2025 11:42-0400 SaO2% (BldA) [Mass fraction] 98 % Clemencia Collins DO Work Phone: 8(070)387-163834 [place] [address] 06-05-2025 11:42-0400 Systolic blood pressure 118 mm[Hg] Clemencia Collins DO Work Phone: 7(024)972-588434 [place] [address] 05-30-2025 11:28-0400 Body height 162.56 cm Clemencia Collins DO Work Phone: 8(862)901-939834 [place] [address] 05-30-2025 11:28-0400 Body temperature 98.6 [degF] Clemencia Collins DO Work Phone: 8(756)505-823534 [place] [address] 05-30-2025 11:28-0400 Diastolic blood pressure 82 mm[Hg] Clemencia Collins DO Work Phone: 6(972)254-794034 [place] [address] 05-30-2025 11:28-0400 Heart rate 100 /min Clemencia Collins DO Work Phone: 9(052)498-979134 [place] [address] 05-30-2025 11:28-0400 Respiratory rate 18 /min Clemencia Collins DO Work Phone: 5(152)516-679334 [place] [address] 05-30-2025 11:28-0400 SaO2% (BldA) [Mass fraction] 97 % Clemencia Collins DO Work Phone: 0(525)998-645134 [place] [address] 05-30-2025 11:28-0400 Systolic blood pressure 122 mm[Hg] Clemencia Collins DO Work Phone: 9(046)146-036734 [place] [address] 05-28-2025 12:40-0400 Body temperature 98.9 [degF] Clemencia Collins DO Work Phone: 4(976)539-254734 [place] [address] 05-28-2025 12:40-0400 Diastolic blood pressure 70 mm[Hg] Clemencia Collins DO Work Phone: 4(498)348-001234 [place] [address] 05-28-2025 12:40-0400 Heart rate 78 /min Clemencia Collins DO Work Phone: 1(537)465-162334 [place] [address] 05-28-2025 12:40-0400 Respiratory rate 16 /min Clemencia Collins DO Work Phone: 1(325)022-868334 [place] [address] 05-28-2025 12:40-0400 SaO2% (BldA) [Mass fraction] 98 % Clemencia Collins DO Work Phone: 9(177)639-134034 [place] [address] 05-28-2025 12:40-0400 Systolic blood pressure 155 mm[Hg] Clemencia Collins DO Work Phone: 8(493)213-635534 [place] [address] 05-28-2025 05:38-0400 Body mass index (BMI) [Ratio] 41 kg/m2 Clemencia Collins DO Work Phone: 9(584)823-982734 [place] [address] 05-28-2025 05:38-0400 Body weight 108.9 kg Clemencia Collins DO Work Phone: 7(490)465-110734 [place] [address] 05-27-2025 14:28-0400 Body height 162.56 cm Clemencia Collins DO Work Phone: 4(894)586-813034 [place] [address] 05-26-2025 22:18-0400 Body temperature 99.5 [degF] Clemencia Collins DO Work Phone: 4(172)207-263934 [place] [address] 05-26-2025 22:18-0400 Diastolic blood pressure 89 mm[Hg] Clemencia Collins DO Work Phone: 3(053)315-042734 [place] [address] 05-26-2025 22:18-0400 Heart rate 100 /min Clemencia Collins DO Work Phone: 5(822)449-314534 [place] [address] 05-26-2025 22:18-0400 Respiratory rate 16 /min Clemencia Collins DO Work Phone: 6(773)992-427834 [place] [address] 05-26-2025 22:18-0400 SaO2% (BldA) [Mass fraction] 98 % Clemencia Collins DO Work Phone: 9(615)584-056334 [place] [address] 05-26-2025 22:18-0400 Systolic blood pressure 132 mm[Hg] Clemencia Collins DO Work Phone: 7(723)451-993934 [place] [address] 05-26-2025 20:15-0400 Body mass index (BMI) [Ratio] 40.8 kg/m2 Clemencia Collins DO Work Phone: 4(033)864-313734 [place] [address] 05-26-2025 20:15-0400 Body weight 107.9 kg Clemencia Collins DO Work Phone: 1(986)182-293134 [place] [address] 05-16-2025 10:25-0400 Diastolic blood pressure 86 mm[Hg] Clemencia Collins DO Work Phone: 9(409)294-646534 [place] [address] 05-16-2025 10:25-0400 Heart rate 110 /min Clemencia Collins DO Work Phone: 3(357)753-560434 [place] [address] 05-16-2025 10:25-0400 Respiratory rate 18 /min Clemencia Collins DO Work Phone: 3(635)837-626334 [place] [address] 05-16-2025 10:25-0400 SaO2% (BldA) [Mass fraction] 97 % Clemencia Collins DO Work Phone: 5(824)476-493134 [place] [address] 05-16-2025 10:25-0400 Systolic blood pressure 131 mm[Hg] Clemencia Collins DO Work Phone: 7(886)125-448234 [place] [address] 05-12-2025 15:59-0400 Body height 162.56 cm Clemencia Collins DO Work Phone: 9(926)844-464034 [place] [address] 05-12-2025 15:59-0400 Body temperature 98.8 [degF] Clemencia Collins DO Work Phone: 4(978)084-114534 [place] [address] 05-12-2025 15:59-0400 Diastolic blood pressure 84 mm[Hg] Clemencia Collins DO Work Phone: 6(456)228-237734 [place] [address] 05-12-2025 15:59-0400 Heart rate 98 /min Clemencia Collins DO Work Phone: 6(522)802-228934 [place] [address] 05-12-2025 15:59-0400 Respiratory rate 18 /min Clemencia Collins DO Work Phone: 4(480)195-169560 [place] [address] 05-12-2025 15:59-0400 SaO2% (BldA) [Mass fraction] 97 % Clemencia Collins DO Work Phone: 3(341)692-975660 [place] [address] 05-12-2025 15:59-0400 Systolic blood pressure 156 mm[Hg] Clemencia Collins DO Work Phone: 6(647)274-694334 [place] [address] 05-08-2025 11:00-0400 Body temperature 97.9 [degF] Clemencia Collins DO Work Phone: 0(273)384-711134 [place] [address] 05-08-2025 11:00-0400 Diastolic blood pressure 80 mm[Hg] Clemencia Collins DO Work Phone: 7(674)267-036734 [place] [address] 05-08-2025 11:00-0400 Systolic blood pressure 139 mm[Hg] Clemencia Collins DO Work Phone: 6(173)359-517434 [place] [address] 05-08-2025 09:05-0400 Body temperature 98.2 [degF] Clemencia Collins DO Work Phone: 5(143)095-142534 [place] [address] 05-08-2025 09:05-0400 Diastolic blood pressure 84 mm[Hg] Clemencia Collins DO Work Phone: 6(452)694-530434 [place] [address] 05-08-2025 09:05-0400 Heart rate 104 /min Clemencia Collins DO Work Phone: 1(782)187-561634 [place] [address] 05-08-2025 09:05-0400 Respiratory rate 16 /min Clemencia Collins DO Work Phone: 5(048)559-160034 [place] [address] 05-08-2025 09:05-0400 SaO2% (BldA) [Mass fraction] 93 % Clemencia Collins DO Work Phone: 8(377)306-145234 [place] [address] 05-08-2025 09:05-0400 Systolic blood pressure 128 mm[Hg] Clemencia Collins DO Work Phone: 5(770)040-904834 [place] [address] 05-07-2025 15:10-0400 Body height 162.56 cm Clemencia Collins DO Work Phone: 8(162)858-208634 [place] [address] 05-07-2025 15:10-0400 Body mass index (BMI) [Ratio] 40.8 kg/m2 Clemencia Collins DO Work Phone: 7(883)436-564834 [place] [address] 05-07-2025 15:10-0400 Body weight 108 kg Clemencia Collins DO Work Phone: 3(164)203-879034 [place] [address] 05-07-2025 15:10-0400 Inhaled oxygen flow rate 2 L/min Clemencia Collins DO Work Phone: 6(805)336-402634 [place] [address] 02-27-2025 14:47-0400 Diastolic blood pressure 78 mm[Hg] Clemencia Collins DO Work Phone: 6(884)402-552434 [place] [address] 02-27-2025 14:47-0400 Heart rate 93 /min Clemencia Collins DO Work Phone: 8(386)643-934634 [place] [address] 02-27-2025 14:47-0400 Respiratory rate 18 /min Clemencia Collins DO Work Phone: 1(612)349-151334 [place] [address] 02-27-2025 14:47-0400 SaO2% (BldA) [Mass fraction] 97 % Clemencia Collins DO Work Phone: 2(839)965-989834 [place] [address] 02-27-2025 14:47-0400 Systolic blood pressure 117 mm[Hg] Clemencia Collins DO Work Phone: 8(961)045-760034 [place] [address] 12-26-2024 14:10-0500 Body height 162.56 cm Clemencia Collins DO Work Phone: 5(127)902-333834 [place] [address] 12-26-2024 14:10-0500 Body mass index (BMI) [Ratio] 41.8 kg/m2 Clemencia Collins DO Work Phone: 3(478)662-664134 [place] [address] 12-26-2024 14:10-0500 Body temperature 98.3 [degF] Clemencia Collins DO Work Phone: 7(902)953-959634 [place] [address] 12-26-2024 14:10-0500 Body weight 110.39 kg Clemencia Collins DO Work Phone: [facility] 12-26-2024 14:10-0500 Diastolic blood pressure 81 mm[Hg] Clemencia Collins DO Work Phone: [facility] 12-26-2024 14:10-0500 Heart rate 93 /min Clemencia Collins DO Work Phone: [facility] 12-26-2024 14:10-0500 Respiratory rate 18 /min Clemencia Collins DO Work Phone: [facility] 12-26-2024 14:10-0500 SaO2% (BldA) [Mass fraction] 96 % Clemencia Collins DO Work Phone: [facility] 12-26-2024 14:10-0500 Systolic blood pressure 123 mm[Hg] Clemencia Collins DO Work Phone: [facility] 01-18-2023 15:50-0400 Body height 162.[address] Bharathi Preston Work Phone: [facility] 01-18-2023 15:50-0400 Body mass index (BMI) [Ratio] 42.6 kg/m2 Dr. Bharathi Preston Work Phone: [facility] 01-18-2023 15:50-0400 Body weight 112.[address] Bharathi Preston Work Phone: [facility] 01-18-2023 15:50-0400 Diastolic blood pressure 83 mm[Hg] Dr. Bharathi Preston Work Phone: [facility] 01-18-2023 15:50-0400 Systolic blood pressure 117 mm[Hg] Dr. Bharathi Preston Work Phone: [facility] 01-06-2022 08:41-0500 Body height 162.[address] Bharathi Preston Work Phone: [facility] Work Phone: 01-06-2022 08:41-0500 Body mass index (BMI) [Ratio] 42 kg/m2 Dr. Bharathi Preston Work Phone: [facility] Work Phone: 01-06-2022 08:41-0500 Body weight 111.[address] Bharathi Preston Work Phone: [facility] Work Phone: Encounters Encounter Date Encounter Type Care Provider Facility Start: 08-18-2025 ambulatory Clemencia Collins Facility :[facility] Start: 08-14-2025 End: 08-14-2025 ambulatory Clemencia Collins Facility:[facility] Start: 07-24-2025 End: 07-24-2025 Patient encounter procedure Mindy WALDROP -[facility] Work Phone: Start: 07-24-2025 End: 07-24-2025 ambulatory Clemencia Collins DO Work Phone: -[facility] Start: 07-11-2025 End: 07-11-[address] Yannick Bourne MD -[facility] Work Phone: Start: 07-11-2025 End: 07-11-2025 ambulatory Clemencia Collins DO Work Phone: -[facility] Start: 06-23-2025 End: 06-23-2025 ambulatory Clemencia Collins DO Work Phone: -Laboratory Specimen Start: 06-23-2025 End: 06-23-[address] Ramón Pickering MD -Laboratory Specimen Work Phone: Start: 06-23-2025 End: 06-23-2025 ambulatory Clemencia Collins Facility:[facility] Start: 06-20-2025 End: 06-20-[address] Yannick Bourne MD -[facility] Work Phone: Start: 06-20-2025 End: 06-20-2025 ambulatory Clemencia Collins DO Work Phone: -[facility] Start: 06-18-2025 Encounter for other preprocedural examination Yannick Siska [facility] Start: 06-13-2025 End: 06-13-2025 ambulatory Clemencia Collins DO Work Phone: -Laboratory Specimen Start: 06-13-2025 End: 06-13-[address] Yannick Bourne MD -Laboratory Specimen Work Phone: Start: 06-13-2025 End: 06-13-[address] Yannick Bourne MD -[facility] Work Phone: Start: 06-13-2025 End: 06-13-2025 ambulatory Clemencia Collins DO Work Phone: -[facility] Start: 06-12-2025 End: 06-13-2025 ambulatory Yannick Bourne Facility:[facility] Start: 06-05-2025 End: 06-05-[address] Yannick Bourne MD -[facility] Work Phone: Start: 06-05-2025 End: 06-05-2025 ambulatory Clemencia Collins DO Work Phone: -[facility] Start: 05-30-2025 End: 05-30-[address] Yannick Bourne MD -[facility] Work Phone: Start: 05-30-2025 End: 05-30-2025 ambulatory Clemencia Collins DO Work Phone: -[facility] Start: 05-28-2025 Non-patient / Non-visit Dr. Yannick cisneros MD -[facility] Start: 05-27-2025 Non-patient / Non-visit Dr. Yannick cisneros MD -[facility] Start: 05-26-2025 ambulatory Clemencia Collins Facility :[facility] Start: 05-26-2025 End: 05-28-2025 Evaluation and management of inpatient Dr. Yannick Bourne MD -[facility] 3 Work Phone: Start: 05-26-2025 ambulatory Clemencia Collins Facility :[facility] Start: 05-26-2025 Non-patient / Non-visit Dr. Yannick cisneros MD -[facility] Start: 05-23-2025 End: 05-23-[address] Yannick Bourne MD -[facility] Work Phone: Start: 05-23-2025 End: 05-23-2025 ambulatory Clemencia Collins DO Work Phone: -[facility] Start: 05-16-2025 End: 05-16-[address] Yannick Bourne MD -[facility] Work Phone: Start: 05-16-2025 End: 05-16-2025 ambulatory Clemencia Collins DO Work Phone: -[facility] Start: 05-12-2025 End: 05-12-[address] Yannick Bourne MD -[facility] Work Phone: Start: 05-12-2025 End: 05-12-2025 ambulatory Clemencia Collins DO Work Phone: -[facility] Start: 05-08-2025 Non-patient / Non-visit Dr. Yannick cisneros MD -[facility] Start: 05-07-2025 End: 05-08-2025 Evaluation and management of inpatient Dr. Yannick Bourne MD -[facility] 3 Work Phone: Start: 05-07-2025 End: 05-08-2025 observation encounter Clemencia Collins DO Work Phone: -[facility] 3 Start: 05-07-2025 End: 05-08-2025 ambulatory Yannick Bourne Facility:[facility] Start: 05-07-2025 Non-patient / Non-visit Dr. Yannick cisneros MD -[facility] Start: 04-01-2025 End: 04-01-2025 ambulatory Clemencia Collins Facility:[facility] Start: 04-01-2025 End: 04-01-2025 Non-patient / Non-visit Dr. Florentin Rayo MD -[facility] Work Phone: Start: 02-27-2025 End: 02-27-[address] Yannick Bourne MD -[facility] Work Phone: Start: 02-27-2025 End: 02-27-2025 ambulatory Yannick Tayla Facility:[facility] Start: 01-13-2025 End: 01-13-2025 ambulatory Clemencia Guadalupe DO Work Phone: [place] Work Phone: Start: 01-13-2025 End: 01-13-2025 Patient encounter procedure Santa Burk [employer] -Outpatient [facility] Work Phone: Start: 01-13-2025 End: 01-13-2025 ambulatory Santa Burk [employer] Facility:[facility] Start: 12-26-2024 End: 12-26-[address] Yannick Bourne MD -[facility] Work Phone: Start: 12-26-2024 End: 12-26-2024 ambulatory Yannick Tayla Facility:[facility] Start: 08-20-2024 ambulatory Shannon Reynoso lity:[facility] Start: 05-20-2024 End: 05-20-2024 Emergency department patient visit BHARATHI PRESTON Facility:[facility] Start: 03-02-2023 End: 03-02-[address] Bharathi Preston Work Phone: [place] Work Phone: Start: 03-02-2023 End: 03-02-[address] Bharathi Preston Work Phone: [facility] Start: 02-15-2023 End: 02-15-[address] Bharathi Preston Work Phone: [place] Work Phone: Start: 02-15-2023 End: 02-15-[address] Bharathi Preston Work Phone: [facility] Start: 02-02-2023 End: 02-02-[address] Bharathi Preston Work Phone: [place] Work Phone: Start: 02-02-2023 End: 02-02-[address] [facility] Start: 01-18-2023 End: 01-18-[address] Bharathi Preston Work Phone: [place] Work Phone: Start: 01-18-2023 End: 01-18-[address] Bharathi Preston [facility] Start: 01-18-2023 End: 01-18-[address] Bharathi Preston Work Phone: [facility] Start: 08-01-2022 End: 08-01-2022 ambulatory [place] Work Phone: Start: 08-01-2022 End: 08-01-2022 Patient encounter procedure [facility] Start: 01-31-2022 End: 01-31-[address] Bharathi Preston [facility] Start: 01-06-2022 End: 01-06-[address] Bharathi Preston Work Phone: [facility] Start: 12-28-2021 End: 12-28-[address] Bharathi Preston Work Phone: [place]/Neurology Procedures Date Procedure Procedure Detail Performing Clinician Start: 06-23-2025 Anaerobic microbial culture Clemencia Guadalupe DO Work Phone: Start: 06-23-2025 Gram stain microscopy K catie Guadalupe DO Work Phone: Start: 06-23-2025 End: 06-23-2025 Microbial culture, routine Clemencia Guadalupe DO Work Phone: Start: 05-28-2025 Estimated creatinine clearance Clemencia Guadalupe DO Work Phone: Start: 05-26-2025 Estimated creatinine clearance Clemencia Guadalupe DO Work Phone: Start: 05-26-2025 Blood culture Clemencia fernandez DO Work Phone: Start: 05-08-2025 Estimated creatinine clearance Clemencia Guadalupe DO Work Phone: Start: 05-07-2025 Reduction mammoplasty Rajinder Guadalupe DO Work Phone: Start: 01-13-2025 Screening mammography Rajinder Guadalupe DO Work Phone: Start: 12-28-2021 Influenza Types A,B Direct FA ([facility]) Dr. Bharathi Preston Work Phone: Start: 12-28-2021 End: 12-28-2021 Respiratory syncytial virus antigen assay Dr. Bharathi Preston Work Phone: History of reduction of breast Status post breast reduction Clemencia Guadalupe DO Work Phone: History of reduction of breast Status post breast reduction Dr. Yannick Bourne MD History of reduction of breast Status post breast reduction Dr. Yannick Bourne MD History of reduction of breast Status post breast reduction Dr. Yannick Bourne MD History of reduction of breast Status post breast reduction Dr. Yannick Bourne MD History of reduction of breast Status post breast reduction Dr. Yannick Bourne MD History of reduction of breast Status post breast reduction Dr. Yannick Bourne MD History of reduction of breast Status post breast reduction Dr. Yannick Bourne MD History of reduction of breast Status post breast reduction Dr. Yannick Bourne MD History of reduction of breast Status post breast reduction Dr. Yannick Bourne MD History of reduction of breast Status post breast reduction Mindy WALDROP Plan of Treatment Date Care Activity Detail Author Start: 06-23-2025 Acid Fast Bacilli Culture Acid Fast Bacilli Culture [facility] Start: 06-23-2025 Acid Fast Bacilli Smear Acid Fast Bacilli Smear [facility] Start: 06-23-2025 Fungal Culture Fungal Culture [facility] Start: 06-23-2025 Acid fast bacilli culture [facility] Start: 05-29-2025 Serum prealbumin level [facility] Start: 05-28-2025 Patient discharge [facility] Start: 05-27-2025 [facility] Start: 05-27-2025 [facility] Start: 05-27-2025 Consultation for treatment [facility] Start: 05-26-2025 Following clinical pathway protocol [facility] Start: 05-26-2025 Application of intermittent pneumatic compression device [facility] Start: 05-26-2025 Wound care [facility] Start: 05-26-2025 Admission procedure [facility] Start: 05-26-2025 Ambulation without limitation [facility] Start: 05-26-2025 Assessment of risk of venous thromboembolism [facility] Start: 05-26-2025 Continuous pulse oximetry [facility] Start: 05-26-2025 Insertion of catheter into peripheral vein [facility] Start: 05-26-2025 Measuring intake and output [facility] Start: 05-26-2025 Medication education [facility] Start: 05-26-2025 Providing care according to standard [facility] Start: 05-26-2025 Verification routine [facility] Start: 05-26-2025 Vital signs measurements [facility] Start: 05-26-2025 [place] Start: 05-26-2025 Hospital admission, emergency, from emergency room, medical nature [facility] Start: 05-26-2025 End: 05-27-2025 [facility] Start: 05-26-2025 Bacteria identified in Blood by Culture Blood Culture [facility] Start: 05-26-2025 Blood culture Blood Culture [facility] Start: 05-26-2025 Patient referral to dietitian [facility] Start: 05-08-2025 Patient discharge [facility] Start: 05-07-2025 Application of intermittent pneumatic compression device [facility] Start: 05-07-2025 End: 05-07-2025 [facility] Start: 05-07-2025 Incentive spirometry [facility] Start: 05-07-2025 Following clinical pathway protocol [facility] Start: 05-07-2025 Anesthesia reconstruction breast ANESTH SURGERY OF BREAST [facility] Start: 05-07-2025 Reduction mammaplasty BREAST REDUCTION [facility] Start: 05-07-2025 Reduction mammoplasty BREAST REDUCTION [facility] Start: 05-07-2025 Admission procedure [facility] Start: 05-07-2025 End: 05-07-2025 Ambulation without limitation [facility] Start: 05-07-2025 Assessment of risk of venous thromboembolism [place] Start: 05-07-2025 Catheterization of vein [facility] Start: 05-07-2025 Measuring intake and output [facility] Start: 05-07-2025 End: 05-07-2025 Medication education [place] Start: 05-07-2025 Vital signs measurements [facility] Start: 05-07-2025 Maintenance of drainage tube [facility] Start: 05-07-2025 [facility] Start: 01-18-2023 Liquid based cervical cytology screening [facility] Acid fast bacilli culture [facility] Follitropin and Lutr opin panel [Units/volume] - Serum or Plasma [facility] Fungus identified in Unspecified specimen by Culture [facility] Lipid 1996 panel - S andrew or Plasma [facility] MG Breast - bilatera l Screening [facility] Mycobacterium sp charity ntified in Unspecified specimen by Organism specific culture [facility] Path report.final Dx Spec [facility] T4 free measurement [facility] Thyroid stimulating hormone measurement [facility] Vitamin D, 25-hydrox y measurement [facility] Payers Date Payer Category Payer Self-pay [id number] 2004 Unknown [id number] Unknown [id number] 2.16.8 [id number] Unknown [id number] 2.16.8 40.1.003477.3.579.2.462 Unknown [id number] 2.16.8 40.1.107499.3.579.2.462 Unknown [id number] 2.16.8 40.1.238025.3.579.2.462 Unknown [id number] 2.16.8 40.1.879327.3.579.2.462 Unknown [id number] 2.16.8 40.1.445635.3.579.2.462 Unknown [id number] 2.16.8 40.1.253680.3.579.2.462 Unknown [id number] 2.16.8 40.1.927372.3.579.2.462 Unknown [id number] 2.16.8 40.1.735672.3.579.2.462 Unknown [id number] 2.16.8 40.1.957958.3.579.2.462 Unknown [id number] 2.16.8 40.1.707917.3.579.2.462 Unknown [id number] 2.16.8 40.1.075080.3.579.2.462 Unknown [id number] 2.16.8 40.1.456855.3.579.2.462 Unknown [id number] 2.16.8 40.1.894333.3.579.2.462 Unknown [id number] 2.16.8 40.1.339337.3.579.2.462 Unknown [id number] 2.16.8 40.1.368840.3.579.2.462 Unknown [id number] 2.16.8 40.1.140448.3.579.2.462 Unknown [id number] 2.16.8 40.1.873826.3.579.2.462 Unknown [id number] 2.16.8 40.1.890139.3.579.2.462 Unknown [id number] 2.16.8 40.1.290808.3.579.2.462 Unknown [id number] 2.16.8 40.1.968432.3.579.2.462 Unknown [id number] 2.16.8 40.1.574777.3.579.2.462 Unknown [id number] 2.16.8 40.1.328346.3.579.2.462 Unknown [id number] 2.16.8 40.1.257433.3.579.2.462 Unknown [id number] 2.16.8 40.1.663300.3.579.2.462 Unknown [id number] 2.16.8 40.1.866976.3.579.2.462 Social History Date Type Detail Facility Start: 01-06-2022 End: 01-18-2023 Tobacco smoking status NHIS Unknown if ever smoked [facility] Start: 1970 Sex Assigned At Female [facility] Start: 12-26-2024 End: 05-26-2025 Tobacco smoking status NHIS Never smoked tobacco (finding) [facility] Start: 01-21-2025 Sex Female (finding) [facility] Not [facility] NEGATED: Highlighted row Not [facility] Goals Date Patient Goal Desired Activity /State Functional Status Date Assessment Result Facility 05-28-2025 Functional status Ambulates [facility] Work Phone: 05-08-2025 Functional status Ambulates;Bedrest [facility] Work Phone: Mental Status Date Assessment Result Facility 05-28-2025 Cognitive function Voice/Name [facility] Work Phone: 05-26-2025 Cognitive function Level Of Cons ciousness Awake;Alert;Appropriate;Follow s Commands [place] Work Phone: 05-08-2025 Cognitive function Voice/Name [facility] Work Phone: Clinical Notes 01-18-2023 to 07-24-2025 Note Date & Type Note Facility 07-24-2025 Progress note [facility] 06-20-2025 Progress note [facility] 06-20-2025 Progress note Note Date/Time June 20, 2025 11:04am [facility] [address], [address] [place] [address] OFFICE VISIT Date of Service: 06/20/25 MR#: [id number] Acct: [id number] Name: PATRIA JOHNSON Rep #: [id number] : 1970 Provider: Dr. Lei Bourne MD Age/Sex: 54/F Location: [facility] Status: Signed Intake Vital Signs 3 06/13/25 10:53 06/20/25 10:38 Height 5 ft 4 in 5 ft 4 in BP 149/93 H 134/85 H Blood Pressure Location Lt brachial Lt brachial Position Sitting Sitting Respiration 18 18 Pulse 98 100 Temp 99.3 F H 99.3 F H Temp Source Temporal Temporal Pulse Oximetry (%) 95 96 Oxygen Delivery Method room air room air Intake Visit Reasons: FOLLOW UP Chief Complaint: post op breast reduction Accompanied by: Is patient in pain?: No Allergies erythromycin base Allergy (Verified 06/20/25 10:39) Anaphylaxis penicillin V Allergy (Verified 06/20/25 10:39) unknown Sulfa (Sulfonamide Antibiotics) Allergy (Verified 06/20/25 10:39) Anaphylaxis Medications 3 ?Medication ?Instructions ?Recorded ?Confirmed ?Type lisinopril 5 mg tablet 5 mg PO QDAY bp 01/16/18 History potassium chloride 10 mEq 10 meq PO QDAY supplement 06/13/25 History tablet,extended release (Klor-Con) fluoxetine 40 mg capsule (Prozac) 40 mg PO DAILY mood 01/06/22 06/13/25 History levonorgestrel 20.4 mcg/24 hr (up 1 device intrauterin e ONCE child 01/06/22 06/13/25 History to 8 yrs) 52 mg intrauterine device (Liletta) bupropion HCl 150 mg 24 hr tablet, 150 mg PO QDAY mood 12/26/24 06/13/25 History extended release tirzepatide 2.5 mg/0.5 mL 2.5 mg subcut FR weight lose 12/26/24 06/13/25 History subcutaneous pen injector (Mounjaro) Held on 05/26/25. Instructions: Ordered lansoprazole 15 mg capsule,delayed 15 mg PO DAILY gerd 03/31/25 06/13/25 History release (Prevacid 24Hr) valacyclovir 500 mg tablet 500 mg PO BID PRN cold sore s 03/31/25 06/13/25 History (Valtrex) hyoscyamine sulfate 0.125 mg tablet 0.125 mg PO Q12H P RN PRN dyspepsia 05/05/25 06/13/25 History ciprofloxacin HCl 500 mg tablet 500 mg PO Q12H 7 days #14 tabs 05/28/25 06/13/25 Rx doxycycline hyclate 100 mg capsule 100 mg PO BID 7 day s #14 caps 05/28/25 06/13/25 Rx lisinopril 20 mg tablet 20 mg PO QDAY 06/20/2506/20 History potassium chloride 20 mEq 20 meq PO QDAY 06/20/2505/31 History tablet,extended release Subjective Details: Operative Information Date of Procedure: 05/07/25 Pre-Operative Diagnosis: Macromastia Post-Operative Diagnosis: Same Surgery/Procedure Performed: 1) Breast reduction (bilateral), inferior pedicle with alan pattern skin resection and axillary/lateral chest liposuction (CPT: 51519 x 2 with 50 modifier) 20 June 2025: Patient here for follow up for wound care. Biopsies were nonspecific for pyoderma. Patient has been doing wet-to-dry dressings twice daily. 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 Underlying granulation tissue forming and wound filling in Coding Level of Care Code Global Post Op Diagnoses Status post breast reduction Z98.890 [facility] Medical History Depression Anxiety Diabetes Arthritis Anemia Easy bruising History of diverticulitis History of IBS Non-smoker Shortness of breath on exertion Contraceptive management GERD (gastroesophageal reflux disease) Vitamin D deficiency Hyperhidrosis Hypertension Surgical History Hx of LASIK S/P cholecystectomy H/O: Family History Mother Hypertension CVA (cerebral vascular accident) Father Hypertension Social History household members: spouse housing: house Smoking Status: Never smoker alcohol intake: never substance use type: does not use caffeine: Yes what type of physical activity do you participate in: none seatbelt use: always do you feel safe at home: Yes 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, DENIES EDIBLES, DENIES MARIJUANA USE, NO FAMILY HISTORY OF BLOOD CLOTS Assessment and Plan (No Qualifiers) Assessment and Plan (1) Status post breast reduction: Status: Acute Plan: Clinically there is concern for pyoderma gangrenosum The wounds are outside of areas of anticipated ischemia (they are not at the T point) and they are sparing the nipple (classic for pyoderma on the breast). Initial presentation did demonstrate the knot-like appearance of pyoderma with painful inflammation, as well as fibrinous exudate (becky kern). I spoke with Dr. Ramón Pickering who is a hse manager. He is happy to see her for evaluation in the office and for potential steroid treatment. I think it would be a good idea to have his opinion on this matter. The patient and her are happy with this plan as well. Plan to continue wet to moist dressings but increase frequency 3 times per day to prevent sticking. No debridement was performed today as this could exacerbate the pyoderma. Follow-up in 2 weeks with ca 06/20/25 9547 <Electronically signed by Yannick Bourne MD> Date _ Yannick Bourne MD Cosigner Signature: Date (if applicable) CC: ~ [facility] Work Phone: 1(803) 146-982307-30-2025 Discharge summary Author Yannick Bourne [place] Note Date/Time May 28, 2025 10:5 3am [facility] Medical Records Department [address] [place] [address] Discharge Summary 05/28/25 1049 MR#: [id number] Acct: [id number] Name: PATRIA JOHNSON Rep #:[id number] : 1970 54 From: Yannick Bourne MD PCP: Clemencia Guadalupe DO Status:ADM IN [place] [facility] [place] [id number] Providers Date of Admission: 05/26/25 Primary Care Physician: JERSON CarsonDO Consultations 05/27/25 02:05 Consult: Onc/Wound/trimmer sorter Routine Comment: Reason for Consult:: Bilateral breast wounds Reason For Visit: CELLULITIS Diagnosis Discharge Diagnosis (1) Status post breast reduction: Status: Acute Code(s): Z98.890 - Other specified postprocedural states (2) Postoperative wound cellulitis: Status: Acute Code(s): T81.49XA - Infection following a procedure, other surgical site, initial encounter Plan Neuro: Tylenol and Roxicodone for pain Respiratory: Incentive spirometer Cardio: Lisinopril for hypertension Abdomen: MiraLAX for constipation as needed FEN/nutrition: CMP tomorrow, regular diet. Discontinue IV fluids Heme: SCDs and daily Lovenox for DVT prophylaxis Infectious disease: Discontinue clindamycin, continue doxycycline and ciprofloxacin Continued wet-to-dry dressings twice daily Plastics will keep the patient another night Medications at Discharge Home Medications lisinopril 5 mg tablet 5 mg PO QDAY bp 01/16/18 potassium chloride 10 mEq tablet,extended release (Klor-Con) 10 meq PO QDAY supplement 01/16/18 fluoxetine 40 mg capsule (Prozac) 40 mg PO DAILY mood 01/06/22 levonorgestrel 20.4 mcg/24 hr (up to 8 yrs) 52 mg intrauterine device (Liletta) 1 device intrauterine ONCE child 01/06/22 bupropion HCl 150 mg 24 hr tablet, extended release 150 mg PO QDAY mood 12/26/24 tirzepatide 2.5 mg/0.5 mL subcutaneous pen injector (Mounjaro) 2.5 mg subcut FR weight lose 12/26/24 Held on 05/26/25. Instructions: Ordered lansoprazole 15 mg capsule,delayed release (Prevacid 24Hr) 15 mg PO DAILY gerd 03/31/25 valacyclovir 500 mg tablet (Valtrex) 500 mg PO BID PRN cold sores 03/31/25 hyoscyamine sulfate 0.125 mg tablet 0.125 mg PO Q12H PRN PRN dyspepsia 05/05/25 ciprofloxacin HCl 500 mg tablet 500 mg PO Q12H 7 days #14 tabs 05/28/25 doxycycline hyclate 100 mg capsule 100 mg PO BID 7 days #14 caps 05/28/25 Hospital Course Summary of Care Provided Hospital Course: Admitted 27 May 2025 for cellulitis of bilateral breasts. Did well as inpatienton antibiotics, accept had reaction (rash) to likely clindamycin. Switched to doxycycline and ciprofloxacin for empiric treatment. Patient started improving HOD 1 and HOD 2 was significantly improved. She was feeling well enough for discharge, had stable VS. 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 Wounds have beefy red granulation tissue at the base. There are no fluid collections/abscesses. There is some redness along the inferior incisions bilaterally. No induration. No drainage. Extremity Extremity Narrative: SCDs on and activated No swelling. Weight / BMI Weight Weight: 240 lb 1.334 oz Body Mass Index (BMI) 41.0 ABG / Lab / Microbiology Data 05/26/25 20:51 05/28/25 05:08 Laboratory: Laboratory Results - last 24 hr 05/28/25 05:08: Sodium 142, Potassium 3.3, Chloride 104, Carbon Dioxide 25.7, Anion Gap 12, BUN 12, Creatinine 0.82, Estim Creat Clear Calc 95.67, Est GFR (MDRD) Non-Af 86, BUN/Creatinine Ratio 14.7, Glucose 100 H, Calcium 8.6, Total Bilirubin 0.52, AST 16, ALT 13, Alkaline Phosphatase 70, Total Protein 5.9, Albumin 3.7, Globulin 2.2, Albumin/Globulin Ratio 1.7 D/C Instructions DC O2, CPAP, BIPAP Needs Home O2 Discharge instructions: Yes Type of respiratory needs?: Oxygen (as needed ) Oxygen frequency: Other (v) Other oxygen liters per minute: 0 Other oxygen frequency: room air DC home with Oxygen: No Meaningful Use Info Meaningful Use Meaningful Use Diagnoses (Choose all that apply): None applicable Discharge Plan Admission Admit Date/Time: 05/26/25 21:55 Attending Provider: Yannick Bourne Primary Care Provider: Clemencia Guadalupe Discharge Orders/Prescriptions Prescriptions: New doxycycline hyclate 100 mg capsule 100 mg PO BID 7 Days Qty: 14 0RF ciprofloxacin HCl 500 mg tablet 500 mg PO Q12H 7 Days Qty: 14 0RF No Action lisinopril 5 mg tablet 5 mg PO QDAY potassium chloride [Klor-Con 10] 10 mEq tablet extended release 10 meq PO QDAY fluoxetine [Prozac] 40 mg capsule 40 mg PO DAILY Liletta 20.1 mcg/24 hrs (6 yrs) 52 mg intrauterine device 1 device intrauterine ONCE Rx Instructions: as a single dose bupropion HCl 150 mg tablet extended release 24 hr 150 mg PO QDAY Mounjaro 2.5 mg/0.5 mL pen injector 2.5 mg subcut FR valacyclovir [Valtrex] 500 mg tablet 500 mg PO BID PRN (Reason: cold sores) lansoprazole [Prevacid 24Hr] 15 mg capsule,delayed release(DR/EC) 15 mg PO DAILY hyoscyamine sulfate 0.125 mg tablet 0.125 mg PO Q12H PRN PRN (Reason: dyspepsia) Referrals / Follow Up: Clemencia Guadalupe DO [Primary Care Provider] - Disposition Disposition (needs filled in before D/C Order can be placed): Home, Self Care 05/28/25 1053 <Electronically signed by Yannick Bourne MD> Cosigner Signature (if applicable): CC: Dr. Yannick Bourne MD; Clemencia Guadalupe DO~ Signed [place] Work Phone: 1(256) 422-272207-30-2025 Consult note [facility] Medical Records Department [address] [place] [address] Counseling Note - Pharmacy 05/28/25 1219 MR#: [id number] Acct: [id number] Name: PATRIA JOHNSON Rep #:[id number] : 1970 54 From: Jossy Acevedo PCP: Clemencia Guadalupe DO Status:ADM IN Y Location: MS3 [id number] Pharmacy [facility] Counseling Pharmacy Service has performed discharge medication reconciliation and counseling for this patient. 1. CIPROFLOXACIN 500MG PO BID X 7 DAYS 2. DOXYCYCLINE 100MG PO BID X 7 DAYS The patient's discharge medication list was reviewed for discrepancies and discrepancies were resolved. The patient was counseled on the following discharge medications and changes in medications for homegoing were reviewed. The Reason for Use, instructions for use, and potential side effects were reviewed for all new medications. The patient's questions regarding all of their medications were answered. The patient was able to verbally demonstrate an understanding of their dischargemedications. Medications at Discharge Home Medications lisinopril 5 mg tablet 5 mg PO QDAY bp 01/16/18 potassium chloride 10 mEq tablet,extended release (Klor-Con) 10 meq PO QDAY supplement 01/16/18 fluoxetine 40 mg capsule (Prozac) 40 mg PO DAILY mood 01/06/22 levonorgestrel 20.4 mcg/24 hr (up to 8 yrs) 52 mg intrauterine device (Liletta) 1 device intrauterine ONCE child 01/06/22 bupropion HCl 150 mg 24 hr tablet, extended release 150 mg PO QDAY mood 12/26/24 tirzepatide 2.5 mg/0.5 mL subcutaneous pen injector (Mounjaro) 2.5 mg subcut FR weight lose 12/26/24 Held on 05/26/25. Instructions: Ordered lansoprazole 15 mg capsule,delayed release (Prevacid 24Hr) 15 mg PO DAILY gerd 03/31/25 valacyclovir 500 mg tablet (Valtrex) 500 mg PO BID PRN cold sores 03/31/25 hyoscyamine sulfate 0.125 mg tablet 0.125 mg PO Q12H PRN PRN dyspepsia 05/05/25 ciprofloxacin HCl 500 mg tablet 500 mg PO Q12H 7 days #14 tabs 05/28/25 doxycycline hyclate 100 mg capsule 100 mg PO BID 7 days #14 caps 05/28/25 05/28/25 1220 Date _ Jossy Pena Signature (if applicable): Date CC: ~ Signed [place]07-30-2025 Discharge summary [facility] Medical Records Department [address] [place] [address] Discharge Summary 05/28/25 1049 MR#: [id number] Acct: [id number] Name: PATRIA JOHNSON Rep #:[id number] : 1970 54 From: Yannick Bourne MD PCP: Clemencia Guadalupe DO Status:ADM IN [place]: [facility] [place] [id number] Providers Date of Admission: 05/26/25 Primary Care Physician: JERSON CarsonDO Consultations 05/27/25 02:05 Consult: Onc/Wound/trimmer sorter Routine Comment: Reason for Consult:: Bilateral breast wounds Reason For Visit: CELLULITIS Diagnosis Discharge Diagnosis (1) Status post breast reduction: Status: Acute Code(s): Z98.890 - Other specified postprocedural states (2) Postoperative wound cellulitis: Status: Acute Code(s): T81.49XA - Infection following a procedure, other surgical site, initial encounter Plan Neuro: Tylenol and Roxicodone for pain Respiratory: Incentive spirometer Cardio: Lisinopril for hypertension Abdomen: MiraLAX for constipation as needed FEN/nutrition: CMP tomorrow, regular diet. Discontinue IV fluids Heme: SCDs and daily Lovenox for DVT prophylaxis Infectious disease: Discontinue clindamycin, continue doxycycline and ciprofloxacin Continued wet-to-dry dressings twice daily Plastics will keep the patient another night Medications at Discharge Home Medications lisinopril 5 mg tablet 5 mg PO QDAY bp 01/16/18 potassium chloride 10 mEq tablet,extended release (Klor-Con) 10 meq PO QDAY supplement 01/16/18 fluoxetine 40 mg capsule (Prozac) 40 mg PO DAILY mood 01/06/22 levonorgestrel 20.4 mcg/24 hr (up to 8 yrs) 52 mg intrauterine device (Liletta) 1 device intrauterine ONCE child 01/06/22 bupropion HCl 150 mg 24 hr tablet, extended release 150 mg PO QDAY mood 12/26/24 tirzepatide 2.5 mg/0.5 mL subcutaneous pen injector (Mounjaro) 2.5 mg subcut FR weight lose 12/26/24 Held on 05/26/25. Instructions: MD Ordered lansoprazole 15 mg capsule,delayed release (Prevacid 24Hr) 15 mg PO DAILY gerd 03/31/25 valacyclovir 500 mg tablet (Valtrex) 500 mg PO BID PRN cold sores 03/31/25 hyoscyamine sulfate 0.125 mg tablet 0.125 mg PO Q12H PRN PRN dyspepsia 05/05/25 ciprofloxacin HCl 500 mg tablet 500 mg PO Q12H 7 days #14 tabs 05/28/25 doxycycline hyclate 100 mg capsule 100 mg PO BID 7 days #14 caps 05/28/25 Hospital Course Summary of Care Provided Hospital Course: Admitted 27 May 2025 for cellulitis of bilateral breasts. Did well as inpatienton antibiotics, accept had reaction (rash) to likely clindamycin. Switched to doxycycline and ciprofloxacin for empirictreatment. Patient started improving HOD 1 and HOD 2 was significantly improved. She was feeling well enough for discharge, had stable VS. 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 Wounds have beefy red granulation tissue at the base. There are no fluid collections/abscesses. There is some redness along the inferior incisions bilaterally. No induration. No drainage. Extremity Extremity Narrative: SCDs on and activated No swelling. Weight / BMI Weight Weight: 240 lb 1.334 oz Body Mass Index (BMI) 41.0 ABG / Lab / Microbiology Data 05/26/25 20:51 05/28/25 05:08 Laboratory: Laboratory Results - last 24 hr 05/28/25 05:08: Sodium 142, Potassium 3.3, Chloride 104, Carbon Dioxide 25.7, Anion Gap 12, BUN 12,Creatinine 0.82, Estim Creat Clear Calc 95.67, Est GFR (MDRD) Non-Af 86, BUN/Creatinine Ratio 14.7,Glucose 100 H, Calcium 8.6, Total Bilirubin 0.52, AST 16, ALT 13, Alkaline Phosphatase 70, Total Protein 5.9, Albumin 3.7, Globulin 2.2, Albumin/Globulin Ratio 1.7 D/C Instructions DC O2, CPAP, BIPAP Needs Home O2 Discharge instructions: Yes Type of respiratory needs?: Oxygen (as needed ) Oxygen frequency: Other (v) Other oxygen liters per minute: 0 Other oxygen frequency: room air DC home with Oxygen: No Meaningful Use Info Meaningful Use Meaningful Use Diagnoses (Choose all that apply): None applicable Discharge Plan Admission Admit Date/Time: 05/26/25 21:55 Attending Provider: Yannick Bourne Primary Care Provider: Clemencia Guadalupe Discharge Orders/Prescriptions Prescriptions: New doxycycline hyclate 100 mg capsule 100 mg PO BID 7 Days Qty: 14 0RF ciprofloxacin HCl 500 mg tablet 500 mg PO Q12H 7 Days Qty: 14 0RF No Action lisinopril 5 mg tablet 5 mg PO QDAY potassium chloride [Klor-Con 10] 10 mEq tablet extended release 10 meq PO QDAY fluoxetine [Prozac] 40 mg capsule 40 mg PO DAILY Liletta 20.1 mcg/24 hrs (6 yrs) 52 mg intrauterine device 1 device intrauterine ONCE Rx Instructions: as a single dose bupropion HCl 150 mg tablet extended release 24 hr 150 mg PO QDAY Mounjaro 2.5 mg/0.5 mL pen injector 2.5 mg subcut FR valacyclovir [Valtrex] 500 mg tablet 500 mg PO BID PRN (Reason: cold sores) lansoprazole [Prevacid 24Hr] 15 mg capsule,delayed release(DR/EC) 15 mg PO DAILY hyoscyamine sulfate 0.125 mg tablet 0.125 mg PO Q12H PRN PRN (Reason: dyspepsia) Referrals / Follow Up: Clemencia Guadalupe DO [Primary Care Provider] - Disposition Disposition (needs filled in before D/C Order can be placed): Home, Self Care 05/28/25 1053 Cosigner Signature (if applicable): CC: Dr. Yannick Bourne MD; Clemencia Guadalupe DO~ Signed [place]07-30-2025 [facility] Medical Records Department [address] [place] [address] Discharge Summary 05/28/25 1049 MR#: [id number] Acct: [id number] Name: PATRIA JOHNSON Rep #: [id number] : 1970 54 From: Yannick Bourne MD PCP: Clemencia Guadalupe DO Status:ADM IN [place] [facility] [place] HA657-9 Providers Date of Admission: 05/26/25 Primary Care Physician: Clemencia Guadalupe [facility] Consultations 05/27/25 02:05 Consult: Onc/Wound/trimmer sorter Routine Comment: Reason for Consult:: Bilateral breast wounds Reason For Visit: CELLULITIS Diagnosis Discharge Diagnosis (1) Status post breast reduction: Status: Acute Code(s): Z98.890 - Other specified postprocedural states (2) Postoperative wound cellulitis: Status: Acute Code(s): T81.49XA - Infection following a procedure, other surgical site, initial encounter Plan Neuro: Tylenol and Roxicodone for pain Respiratory: Incentive spirometer Cardio: Lisinopril for hypertension Abdomen: MiraLAX for constipation as needed FEN/nutrition: CMP tomorrow, regular diet. Discontinue IV fluids Heme: SCDs and daily Lovenox for DVT prophylaxis Infectious disease: Discontinue clindamycin, continue doxycycline and ciprofloxacin Continued wet-to-dry dressings twice daily Plastics will keep the patient another night Medications at Discharge Home Medications lisinopril 5 mg tablet 5 mg PO QDAY bp 01/16/18 potassium chloride 10 mEq tablet,extended release (Klor-Con) 10 meq PO QDAY supplement 01/16/18 fluoxetine 40 mg capsule (Prozac) 40 mg PO DAILY mood 01/06/22 levonorgestrel 20.4 mcg/24 hr (up to 8 yrs) 52 mg intrauterine device (Liletta) 1 device intrauterine ONCE child 01/06/22 bupropion HCl 150 mg 24 hr tablet, extended release 150 mg PO QDAY mood 12/26/24 tirzepatide 2.5 mg/0.5 mL subcutaneous pen injector (Mounjaro) 2.5 mg subcut FR weight lose 12/26/24 Held on 05/26/25. Instructions: Ordered lansoprazole 15 mg capsule,delayed release (Prevacid 24Hr) 15 mg PO DAILY gerd 03/31/25 valacyclovir 500 mg tablet (Valtrex) 500 mg PO BID PRN cold sores 03/31/25 hyoscyamine sulfate 0.125 mg tablet 0.125 mg PO Q12H PRN PRN dyspepsia 05/05/25 ciprofloxacin HCl 500 mg tablet 500 mg PO Q12H 7 days #14 tabs 05/28/25 doxycycline hyclate 100 mg capsule 100 mg PO BID 7 days #14 caps 05/28/25 Hospital Course Summary of Care Provided Hospital Course: Admitted 27 May 2025 for cellulitis of bilateral breasts. Did well as inpatient on antibiotics, accept had reaction (rash) to likely clindamycin. Switched to doxycycline and ciprofloxacin for empiric treatment. Patient started improving HOD 1 and HOD 2 was significantly improved. She was feeling well enough for discharge, had stable VS. 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 Wounds have beefy red granulation tissue at the base. There are no fluid collections/abscesses. There is some redness along the inferior incisions bilaterally. No induration. No drainage. Extremity Extremity Narrative: SCDs on and activated No swelling. Weight / BMI Weight Weight: 240 lb 1.334 oz Body Mass Index (BMI) 41.0 ABG / Lab / Microbiology Data 05/26/25 20:51 05/28/25 05:08 Laboratory: Laboratory Results - last 24 hr 05/28/25 05:08: Sodium 142, Potassium 3.3, Chloride 104, Carbon Dioxide 25.7, Anion Gap 12, BUN 12, Creatinine 0.82, Estim Creat Clear Calc 95.67, Est GFR (MDRD) Non-Af 86, BUN/Creatinine Ratio 14.7, Glucose 100 H, Calcium 8.6, Total Bilirubin 0.52, AST 16, ALT 13, Alkaline Phosphatase 70, Total Protein 5.9, Albumin 3.7, Globulin 2.2, Albumin/Globulin Ratio 1.7 D/C Instructions DC O2, CPAP, BIPAP Needs Home O2 Discharge instructions: Yes Type of respiratory needs?: Oxygen (as needed ) Oxygen frequency: Other (v) Other oxygen liters per minute: 0 Other oxygen frequency: room air DC home with Oxygen: No Meaningful Use Info Meaningful Use Meaningful Use Diagnoses (Choose all that apply): None applicable Discharge Plan Admission Admit Date/Time: 05/26/25 21:55 Attending Provider: Yannick Bourne Primary Care Provider: Clemencia Guadalupe [facility] Discharge Orders/Prescriptions Prescriptions: New doxycycline hyclate 100 mg capsule 100 mg PO BID 7 Days Qty: 14 0RF ciprofloxacin HCl 500 mg tablet 500 mg PO Q12H 7 Days Qty: 14 0RF No Action lisinopril 5 mg tablet 5 mg PO QDAY potassium chloride [Klor-Con 10] 10 mEq tablet extended release 10 meq PO QDAY fluoxetine [Prozac] 40 mg ca (more content not included)...[place]07-29-2025 Progress note Author Yannick Bourne [place] Note Date/Time May 27, 2025 10:1 9am [facility] Medical Records Department [address] [place] [address] Progress Note - Surgery 05/27/25 1012 MR#: [id number] Acct: [id number] Name: PATRIA JOHNSON Rep #:[id number] : 1970 54 From: Yannick Bourne MD PCP: Clemencia Guadalupe DO Status:ADM IN Location: NM3 VA627-3 Subjective Subjective Patient doing well this morning overall. Reports improved pain in the breast. She did have a diffuse rash on her back and trunk last night with the clindamycin. It was since discontinued and Benadryl was given. No shortness ofbreath Objective Data Objective Data Vital Signs: Vital Signs Temp Pulse Resp BP Pulse Ox O2 Del Method 97.8 F 93 16 141/94 H 95 Room Air 05/27/25 08:32 05/27/25 08:32 05/27/25 08:32 05/27/25 08:32 05/27/25 08:32 05/27/25 08:32 Oxygen Delivery Method Room Air Weight: 242 lb 0.99 oz Body Mass Index (BMI) 41.3 Intake & Output: Intake and Output for Last 24 Hours 05/25/25 05/26/25 05/27/25 23:59 23:59 23:59 Intake Total 850 / 850 Output Total 700 / 700 Balance 150 / 150 Lab / Micro Data 05/26/25 20:51 05/26/25 20:51 Labs: Laboratory Results - last 24 hr 05/26/25 20:51: WBC 9.4, RBC 4.45, Hgb 13.0, Hct 38.4, MCV 86.3, MCH 29.2, MCHC 33.9, RDW Std Deviation 41.6, RDW Coeff of Edison 13.4, Plt Count 395, MPV 9.5, Immature Gran % (Auto) 0.600, Neut % (Auto) 50.4, Lymph % (Auto) 34.1, Garza % (Auto) 8.9, Eos % (Auto) 5.3 H, Baso % (Auto) 0.7, Absolute Neuts (auto) 4.7, Absolute Lymphs (auto) 3.21, Nucleated RBC % 0, Sodium 143, Potassium 4.0, Chloride 105, Carbon Dioxide 24.6, Anion Gap 13, BUN 12, Creatinine 0.83, Estim Creat Clear Calc 94.03, Est GFR (MDRD) Non-Af 84, BUN/Creatinine Ratio 14.2, Glucose 135 H, Lactic Acid 1.3, Calcium 9.2, Total Bilirubin 0.50, AST 23, ALT 16, Alkaline Phosphatase 72, Total Protein 6.5, Albumin 3.9, Globulin 2.6, Albumin/Globulin Ratio 1.5 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 The wounds were debrided with bedside nursing today and packed with wet-to-dry dressings. There is some redness along the inferior incisions bilaterally. No induration. No drainage. Assessment & Plan Assessment/Plan (1) Status post breast reduction: (2) Postoperative wound cellulitis: PLAN: Plan Neuro: Tylenol and Roxicodone for pain Respiratory: Incentive spirometer Cardio: Lisinopril for hypertension Abdomen: MiraLAX for constipation as needed FEN/nutrition: CMP tomorrow, regular diet. Discontinue IV fluids Heme: SCDs and daily Lovenox for DVT prophylaxis Infectious disease: Discontinue clindamycin, continue doxycycline and ciprofloxacin Continued wet-to-dry dressings twice daily Plastics will keep the patient another night Charges/Coding Procedures Integumentary 111xxx-113xx: 28192 Global Visit 05/27/25 1019 <Electronically signed by Yannick Bourne MD> Cosigner Signature (if applicable): CC: ~ Signed [place] Work Phone: 1(808) 858-248207-29-2025 Progress note [facility] Medical Records Department [address] [place] [address] Progress Note - Surgery 05/27/25 1012 MR#: [id number] Acct: [id number] Name: PATRIA JOHNSON Rep #:[id number] : 1970 54 From: Yannick Bourne MD PCP: Clemencia Guadalupe DO Status:ADM IN Location: NM3 [id number] Subjective Subjective Patient doing well this morning overall. Reports improved pain in the breast. She did have a diffuse rash on her back and trunk last night with the clindamycin. It was since discontinued and Benadryl was given. No shortness ofbreath Objective Data Objective Data Vital Signs: Vital Signs Temp Pulse Resp BP Pulse Ox O2 Del Method 97.8 F 93 16 141/94 H 95 Room Air 05/27/25 08:32 05/27/25 08:32 05/27/25 08:32 05/27/25 08:32 05/27/25 08:32 05/27/25 08:32 Oxygen Delivery Method Room Air Weight: 242 lb 0.99 oz Body Mass Index (BMI) 41.3 Intake & Output: Intake and Output for Last 24 Hours 05/25/25 05/26/25 05/27/25 23:59 23:59 23:59 Intake Total 850 / 850 Output Total 700 / 700 Balance 150 / 150 Lab / Micro Data 05/26/25 20:51 05/26/25 20:51 Labs: Laboratory Results - last 24 hr 05/26/25 20:51: WBC 9.4, RBC 4.45, Hgb 13.0, Hct 38.4, MCV 86.3, MCH 29.2, MCHC 33.9, RDW Std Deviation 41.6, RDW Coeff of Edison 13.4, Plt Count 395, MPV 9.5, Immature Gran % (Auto) 0.600, Neut % (Auto) 50.4, Lymph % (Auto) 34.1, Garza % (Auto) 8.9, Eos % (Auto) 5.3 H, Baso % (Auto) 0.7, Absolute Neuts (auto) 4.7, Absolute Lymphs (auto) 3.21, Nucleated RBC % 0, Sodium 143, Potassium 4.0, Chloride 105, Carbon Dioxide 24.6, Anion Gap 13, BUN 12, Creatinine 0.83, Estim Creat Clear Calc 94.03, Est GFR(MDRD) Non-Af 84, BUN/Creatinine Ratio 14.2, Glucose 135 H, Lactic Acid 1.3, Calcium 9.2, Total Bilirubin 0.50, AST 23, ALT 16, Alkaline Phosphatase 72, Total Protein 6.5, Albumin 3.9, Globulin 2.6, A lbumin/Globulin Ratio 1.5 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 The wounds were debrided with bedside nursing today and packed with wet-to-dry dressings. There is some redness along the inferior incisions bilaterally. No induration. No drainage. Assessment & Plan Assessment/Plan (1) Status post breast reduction: (2) Postoperative wound cellulitis: PLAN: Plan Neuro: Tylenol and Roxicodone for pain Respiratory: Incentive spirometer Cardio: Lisinopril for hypertension Abdomen: MiraLAX for constipation as needed FEN/nutrition: CMP tomorrow, regular diet. Discontinue IV fluids Heme: SCDs and daily Lovenox for DVT prophylaxis Infectious disease: Discontinue clindamycin, continue doxycycline and ciprofloxacin Continued wet-to-dry dressings twice daily Plastics will keep the patient another night Charges/Coding Procedures Integumentary 111xxx-113xx: 35646 Global Visit 05/27/25 1019 Cosigner Signature (if applicable): CC: ~ Signed [place]07-29-2025 Discharge summary Author Chris Le [place] Note Date/Time May 27, 2025 12:1 8am [facility] Medical Records Department [address] [place] [address] Emergency Department Summary 05/26/25 MR#: [id number] Acct: [id number] Name: PATRIA JOHNSON Rep #:[id number] : 1970 54 From: Chris Montano PCP: Clemencia Guadalupe DO Status:ADM IN Location: [facility] [place] [id number] HPI History of Present Illness Chief Complaint: General Illness Informant: patient and spouse/S.O. Narrative Narrative: Sent in by her plastic surgeon for evaluation. 19-day postop breast reduction. Last couple days not feeling well had fever and chills at home. No cough. No urinary symptoms. No vomiting or diarrhea. Allergies to penicillin and sulfa with breathing issues. Temp checked this evening 99. PFSH PFSH Medical History Depression Anxiety Diabetes Arthritis Anemia Easy bruising History of diverticulitis History of IBS Non-smoker Shortness of breath on exertion Contraceptive management GERD (gastroesophageal reflux disease) Vitamin D deficiency Hyperhidrosis Hypertension Home Medications ?Medication ?Instructions ?Recorded ?Last Taken ?Type lisinopril 5 mg tablet 5 mg PO QDAY bp 01/16/1806/23 18:00 History potassium chloride 10 mEq 10 meq PO QDAY supplement 05/06/25 18:00 History tablet,extended release (Klor-Con) fluoxetine 40 mg capsule (Prozac) 40 mg PO DAILY mood 01/06/22 05/06/25 16:00 History levonorgestrel 20.4 mcg/24 hr (up 1 device intrauterin e ONCE child 01/06/22 Unknown History to 8 yrs) 52 mg intrauterine device (Liletta) bupropion HCl 150 mg 24 hr tablet, 150 mg PO QDAY mood 12/26/24 05/06/25 06:00 History extended release tirzepatide 2.5 mg/0.5 mL 2.5 mg subcut FR weight lose 12/26/24 04/18/25 History subcutaneous pen injector (Devenuntom) Held on 05/26/25. Instructions: Ordered lansoprazole 15 mg capsule,delayed 15 mg PO DAILY gerd 03/31/25 05/06/25 18:00 History release (Prevacid 24Hr) valacyclovir 500 mg tablet 500 mg PO BID PRN cold sore s 03/31/25 Unknown History (Valtrex) hyoscyamine sulfate 0.125 mg tablet 0.125 mg PO Q12H P RN PRN dyspepsia 05/05/25 05/06/25 18:00 History Allergy/AdvReac Type Severity Reaction Status Date / Time erythromycin base Allergy Anaphylaxis Verified 05/26/25 20:15 penicillin V Allergy unknown Verified 05/26/25 20:15 Sulfa (Sulfonamide Allergy Anaphylaxis Verified 05/26/25 20:15 Antibiotics) Family History Mother Hypertension CVA (cerebral vascular accident) Father Hypertension Surgical History Hx of LASIK S/P cholecystectomy H/O: Social History household members: spouse housing: house Smoking Status: Never smoker alcohol intake: never substance use type: does not use caffeine: Yes what type of physical activity do you participate in: none seatbelt use: always do you feel safe at home: Yes 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, DENIES EDIBLES, DENIES MARIJUANA USE, NO FAMILY HISTORY OF BLOOD CLOTS ROS ROS ED Constitutional Constitutional ED: Reports chills and fever(s) Cardiovascular Cardiovascular: Denies chest pain Respiratory/Chest Respiratory/Chest: Denies cough or dyspnea Gastrointestinal Gastrointestinal: Denies diarrhea or vomiting Genitourinary Genitourinary ED: Denies dysuria Musculoskeletal Musculoskeletal: Denies none Integumentary Reports rash; Denies wounds Neurologic Neurologic: Denies weakness EXAM Physical Exam Const Vital Signs: 05/26/25 20:15 05/26/25 20:17 05/26/25 21:17 Temperature 99.5 F H 99.5 F H Temperature Source Oral Oral Pulse Rate 91 91 Respiratory Rate 18 18 Respiratory Effort Respiratory Pattern Blood Pressure 136/90 H 136/90 H Blood Pressure Mean 105 105 Pulse Ox 99 99 99 Oxygen Delivery Method Room Air Room Air Room Air 05/26/25 21:17 05/26/25 21:17 05/26/25 21:17 Temperature 99.5 F H Temperature Source Oral Pulse Rate 100 Respiratory Rate 13 16 Respiratory Effort Normal Non-Labored Respiratory Pattern Normal Blood Pressure 132/89 H Blood Pressure Mean 103 Pulse Ox 99 98 Oxygen Delivery Method Room Air Positive well nourished and well developed General Appearance ED: well developed HEENT normocephalic and atraumatic Eyes General Eye ED: Yes normal appearance of both eyes Neck full ROM Chest Wall Chest Narrative: Dr. Bourne present with exam: Breast with incisions more laterally clean, dry intact. Underneath the breasts there were open ulceration with no active drainage. There is some slight erythema inferior right breast. Resp normal respiratory effort and normal air movement Cardio regular rate and regular rhythm GI soft to palpation Extremity normal to inspection and full ROM Neuro oriented x3 Skin Skin Narrative: See above MDM MDM MDM Narrative Medical decision making narrative: Interventions / MDM: Differential diagnosis: Postop cellulitis, status post breast reduction Diagnosis considered but do not suspect: No cough or urinary symptoms for concerns for pneumonia or UTI. My EKG interpretation: N/A Imaging independently reviewed and interpreted by myself: N/A External documents reviewed: N/A Test considered but not ordered:N/A ED course: Nursing protocol initiated labs with blood cultures. White count returned 9.4. Temp 99.5. 1 out of 4 SIRS criteria. Evaluation with surgeon concerns for developing cellulitis. Recommended starting patient on Cipro and clindamycin in the ED. Patient admitted under plastic service. Re-evaluation: stable Disposition discussed with patient/family/significant other: Patient and spouse. Case discussed with consulting clinician: Plastic surgery This note was generated with [employer] dictation software. It may contain incorrectwords, spelling, and punctuation that were not noted in checking the note beforesigning. Lab Data Attestation: I reviewed the patient's lab results. Labs: Laboratory Results - last 24 hr 05/26/25 20:51 WBC 9.4 RBC 4.45 Hgb 13.0 Hct 38.4 MCV 86.3 MCH 29.2 MCHC 33.9 RDW Std Deviation 41.6 RDW Coeff of Edison 13.4 Plt Count 395 MPV 9.5 Immature Gran % (Auto) 0.600 Neut % (Auto) 50.4 Lymph % (Auto) 34.1 Garza % (Auto) 8.9 Eos % (Auto) 5.3 H Baso % (Auto) 0.7 Absolute Neuts (auto) 4.7 Absolute Lymphs (auto) 3.21 Nucleated RBC % 0 Sodium 143 Potassium 4.0 Chloride 105 Carbon Dioxide 24.6 Anion Gap 13 BUN 12 Creatinine 0.83 Estim Creat Clear Calc 94.03 Est GFR (MDRD) Non-Af 84 BUN/Creatinine Ratio 14.2 Glucose 135 H Lactic Acid 1.3 Calcium 9.2 Total Bilirubin 0.50 AST 23 ALT 16 Alkaline Phosphatase 72 Total Protein 6.5 Albumin 3.9 Globulin 2.6 Albumin/Globulin Ratio 1.5 Discharge Plan Dx/Rx/DC Orders Clinical Impression: Status post breast reduction, Postoperative wound cellulitis Disposition Disposition: [facility] Discharge Date/Time: 05/26/25 23:20 What to do if you have Problems For any increased pain, shortness of breath, bleeding, nausea or vomiting, chestpain, or any unexpected problems, contact your Primary Care Provider. Call [facility] ([phone]) or report to the closest Emergency Room. Call 911 if necessary. 05/27/25 0018 <Electronically signed by Chris Montano> Cosigner Signature (if applicable): CC: Clemencia Guadalupe DO ~ Signed [place] Work Phone: [phone] Discharge summary [facility] Medical Records Department [address] [place] [address] Emergency Department Summary 05/26/25 MR#: [id number] Acct: [id number] Name: PATRIA JOHNSON Rep #:[id number] : 1970 54 From: Chris Montano PCP: Clemencia Guadalupe DO Status:ADM IN Location: [place] [address]-1 HPI History of Present Illness Chief Complaint: General Illness Informant: patient and spouse/S.O. Narrative Narrative: Sent in by her plastic surgeon for evaluation. 19-day postop breast reduction. Last couple days notfeeling well had fever and chills at home. No cough. No urinary symptoms. No vomiting or diarrhea. Allergies to penicillin and sulfa with breathing issues. Temp checked this evening 99. PFSH PFSH Medical History Depression Anxiety Diabetes Arthritis Anemia Easy bruising History of diverticulitis History of IBS Non-smoker Shortness of breath on exertion Contraceptive management GERD (gastroesophageal reflux disease) Vitamin D deficiency Hyperhidrosis Hypertension Home Medications ?Medication ?Instructions ?Recorded ?Last Taken ?Type lisinopril 5 mg tablet 5 mg PO QDAY bp 01/16/1806/23 18:00 History potassium chloride 10 mEq 10 meq PO QDAY supplement 05/06/25 18:00 History tablet,extended release (Klor-Con) fluoxetine 40 mg capsule (Prozac) 40 mg PO DAILY mood 01/06/22 05/06/25 16:00 History levonorgestrel 20.4 mcg/24 hr (up 1 device intrauterin e ONCE child 01/06/22 Unknown History to 8 yrs) 52 mg intrauterine device (Liletta) bupropion HCl 150 mg 24 hr tablet, 150 mg PO QDAY mood 12/26/24 05/06/25 06:00 History extended release tirzepatide 2.5 mg/0.5 mL 2.5 mg subcut FR weight lose 12/26/24 04/18/25 History subcutaneous pen injector (Mounjaro) Held on 05/26/25. Instructions: MD Ordered lansoprazole 15 mg capsule,delayed 15 mg PO DAILY gerd 03/31/25 05/06/25 18:00 History release (Prevacid 24Hr) valacyclovir 500 mg tablet 500 mg PO BID PRN cold sore s 03/31/25 Unknown History (Valtrex) hyoscyamine sulfate 0.125 mg tablet 0.125 mg PO Q12H P RN PRN dyspepsia 05/05/25 05/06/25 18:00 History Allergy/AdvReac Type Severity Reaction Status Date / Time erythromycin base Allergy Anaphylaxis Verified 05/26/25 20:15 penicillin V Allergy unknown Verified 05/26/25 20:15 Sulfa (Sulfonamide Allergy Anaphylaxis Verified 05/26/25 20:15 Antibiotics) Family History Mother Hypertension CVA (cerebral vascular accident) Father Hypertension Surgical History Hx of LASIK S/P cholecystectomy H/O: Social History household members: spouse housing: house Smoking Status: Never smoker alcohol intake: never substance use type: does not use caffeine: Yes what type of physical activity do you participate in: none seatbelt use: always do you feel safe at home: Yes 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, DENIES EDIBLES, DENIES MARIJUANA USE, NO FAMILY HISTORY OF BLOOD CLOTS ROS ROS ED Constitutional Constitutional ED: Reports chills and fever(s) Cardiovascular Cardiovascular: Denies chest pain Respiratory/Chest Respiratory/Chest: Denies cough or dyspnea Gastrointestinal Gastrointestinal: Denies diarrhea or vomiting Genitourinary Genitourinary ED: Denies dysuria Musculoskeletal Musculoskeletal: Denies none Integumentary Reports rash; Denies wounds Neurologic Neurologic: Denies weakness EXAM Physical Exam Const Vital Signs: 05/26/25 20:15 05/26/25 20:17 05/26/25 21:17 Temperature 99.5 F H 99.5 F H Temperature Source Oral Oral Pulse Rate 91 91 Respiratory Rate 18 18 Respiratory Effort Respiratory Pattern Blood Pressure 136/90 H 136/90 H Blood Pressure Mean 105 105 Pulse Ox 99 99 99 Oxygen Delivery Method Room Air Room Air Room Air 05/26/25 21:17 05/26/25 21:17 05/26/25 21:17 Temperature 99.5 F H Temperature Source Oral Pulse Rate 100 Respiratory Rate 13 16 Respiratory Effort Normal Non-Labored Respiratory Pattern Normal Blood Pressure 132/89 H Blood Pressure Mean 103 Pulse Ox 99 98 Oxygen Delivery Method Room Air Positive well nourished and well developed General Appearance ED: well developed HEENT normocephalic and atraumatic Eyes General Eye ED: Yes normal appearance of both eyes Neck full ROM Chest Wall Chest Narrative: Dr. Bourne present with exam: Breast with incisions more laterally clean, dry intact. Underneath thebreasts there were open ulceration with no active drainage. There is some slight erythema inferior right breast. Resp normal respiratory effort and normal air movement Cardio regular rate and regular rhythm GI soft to palpation Extremity normal to inspection and full ROM Neuro oriented x3 Skin Skin Narrative: See above MDM MDM MDM Narrative Medical decision making narrative: Interventions / MDM: Differential diagnosis: Postop cellulitis, status post breast reduction Diagnosis considered but do not suspect: No cough or urinary symptoms for concerns for pneumonia orUTI. My EKG interpretation: N/A Imaging independently reviewed and interpreted by myself: N/A External documents reviewed: N/A Test considered but not ordered:N/A ED course: Nursing protocol initiated labs with blood cultures. White count returned 9.4. Temp 99.5. 1 out of 4 SIRS criteria. Evaluation with surgeon concerns for developing cellulitis. Recommended starting patient on Cipro and clindamycin in the ED. Patient admitted under plastic service. Re-evaluation: stable Disposition discussed with patient/family/significant other: Patient and spouse. Case discussed with consulting clinician: Plastic surgery This note was generated with [employer] software. It may contain incorrectwords, spelling, and punctuation that were not noted in checking the note beforesigning. Lab Data Attestation: I reviewed the patient's lab results. Labs: Laboratory Results - last 24 hr 05/26/25 20:51 WBC 9.4 RBC 4.45 Hgb 13.0 Hct 38.4 MCV 86.3 MCH 29.2 MCHC 33.9 RDW Std Deviation 41.6 RDW Coeff of Edison 13.4 Plt Count 395 MPV 9.5 Immature Gran % (Auto) 0.600 Neut % (Auto) 50.4 Lymph % (Auto) 34.1 Garza % (Auto) 8.9 Eos % (Auto) 5.3 H Baso % (Auto) 0.7 Absolute Neuts (auto) 4.7 Absolute Lymphs (auto) 3.21 Nucleated RBC % 0 Sodium 143 Potassium 4.0 Chloride 105 Carbon Dioxide 24.6 Anion Gap 13 BUN 12 Creatinine 0.83 Estim Creat Clear Calc 94.03 Est GFR (MDRD) Non-Af 84 BUN/Creatinine Ratio 14.2 Glucose 135 H Lactic Acid 1.3 Calcium 9.2 Total Bilirubin 0.50 AST 23 ALT 16 Alkaline Phosphatase 72 Total Protein 6.5 Albumin 3.9 Globulin 2.6 Albumin/Globulin Ratio 1.5 Discharge Plan Dx/Rx/DC Orders Clinical Impression: Status post breast reduction, Postoperative wound cellulitis Disposition Disposition: [facility] Discharge Date/Time: 05/26/25 23:20 What to do if you have Problems For any increased pain, shortness of breath, bleeding, nausea or vomiting, chestpain, or any unexpected problems, contact your Primary Care Provider. Call [facility] ([phone]) or report tothe closest Emergency Room. Call 911 if necessary. 05/27/25 0018 Cosigner Signature (if applicable): CC: Clemencia Guadalupe DO ~ Signed [place]07-28-2025 Consult note Author Yannick Bourne [place] Note Date/Time May 26, 2025 9:54 pm [facility] Medical Records Department [address] [place] [address] Consultation - Surgical 05/26/252043 MR#: [id number] Acct: [id number] Name: PATRIA JOHNSON Rep #:[id number] : 1970 54 From: Yannick Bourne MD PCP: Clemencia Guadalupe DO Status:PRE ER Location: ED Assessment & Plan Assessment/Plan (1) Status post breast reduction: PLAN: Given redness, will admit overnight for cellulitis. IV Clindamycin and ciprofloxacin Lovenox and SCDs for DVT pxx. WTD dressings BID to the right and left breast wounds . Patient happy with the plan HPI Consult Data Date of Consult: 05/26/25 HPI Narrative HPI Narrative: PATRIA JOHNSON is a 54 YO FM who presents with malaise and breast redness after breast reduction on 07 May 2025. Reports that it started 2 days ago. Tonight in the ED, WBC 10 K. No fever, stable VS. PFSH Medical History Depression Anxiety Diabetes Arthritis Anemia Easy bruising History of diverticulitis History of IBS Non-smoker Shortness of breath on exertion Contraceptive management GERD (gastroesophageal reflux disease) Vitamin D deficiency Hyperhidrosis Hypertension Home Medications ?Medication ?Instructions ?Recorded ?Last Taken ?Type lisinopril 5 mg tablet 5 mg PO QDAY 01/16/18 18:00 History potassium chloride 10 mEq 10 meq PO QDAY 01/16/18 0706/23 18:00 History tablet,extended release (Klor-Con) fluoxetine 40 mg capsule (Prozac) 40 mg PO DAILY 01/0605/06/25 16:00 History levonorgestrel 20.4 mcg/24 hr (up 1 device intrauterin e ONCE 01/06/22 Unknown History to 8 yrs) 52 mg intrauterine device (Liletta) bupropion HCl 150 mg 24 hr tablet, 150 mg PO QDAY 12/0105/06/25 06:00 History extended release tirzepatide 2.5 mg/0.5 mL 2.5 mg subcut FR 12/26/24 History subcutaneous pen injector (Mounjaro) lansoprazole 15 mg capsule,delayed 15 mg PO DAILY 12/2405/06/25 18:00 History release (Prevacid 24Hr) valacyclovir 500 mg tablet 500 mg PO BID PRN cold sore s 03/31/25 Unknown History (Valtrex) hyoscyamine sulfate 0.125 mg tablet 0.125 mg PO Q12H P RN PRN dyspepsia 05/05/25 05/06/25 18:00 History clindamycin HCl 150 mg capsule 150 mg PO TID 5 days #1 5 caps 05/07/25 Unknown Rx (Cleocin HCl) ondansetron 4 mg disintegrating 4 mg PO Q8H PRN nausea and 05/07/25 Unknown Rx tablet vomiting #10 tabs Allergy/AdvReac Type Severity Reaction Status Date / Time erythromycin base Allergy Anaphylaxis Verified 05/26/25 20:15 penicillin V Allergy unknown Verified 05/26/25 20:15 Sulfa (Sulfonamide Allergy Anaphylaxis Verified 05/26/25 20:15 Antibiotics) Family History Mother Hypertension CVA (cerebral vascular accident) Father Hypertension Surgical History Hx of LASIK S/P cholecystectomy H/O: Social History (Updated 05/26/25 @ 21:39 by Liv Wilkins) household members: spouse housing: house Smoking Status: Never smoker alcohol intake: never substance use type: does not use caffeine: Yes what type of physical activity do you participate in: none seatbelt use: always do you feel safe at home: Yes 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 There is some redness along the inferior incisions bilaterally. No induration. No drainage. Lab / Micro Data 05/26/25 20:51 05/26/25 20:51 Charges/Coding Procedures Integumentary 111xxx-113xx: 99188 Global Visit 05/26/252153 <Electronically signed by Yannick Bourne MD> Cosigner Signature (if applicable): CC: Clemencia Guadalupe DO~ Signed [place] Work Phone: 1([phone] 448-796607-28-2025 Consult note Author Yannick Bourne [place] Note Date/Time May 26, 2025 9:54 pm [facility] Medical Records Department [address] [place] [id number] Consultation - Surgical 05/26/252043 MR#: [id number] Acct: [id number] Name: PATRIA JOHNSON Rep #:[id number] : 1970 54 From: Yannick Bourne MD PCP: Clemencia Guadalupe DO Status:PRE ER Location: ED Assessment & Plan Assessment/Plan (1) Status post breast reduction: PLAN: Given redness, will admit overnight for cellulitis. IV Clindamycin and ciprofloxacin Lovenox and SCDs for DVT pxx. WTD dressings BID to the right and left breast wounds . Patient happy with the plan HPI Consult Data Date of Consult: 05/26/25 HPI Narrative HPI Narrative: PATRIA JOHNSON is a 54 YO FM who presents with malaise and breast redness after breast reduction on 07 May 2025. Reports that it started 2 days ago. Tonight in the ED, WBC 10 K. No fever, stable VS. PFSH Medical History Depression Anxiety Diabetes Arthritis Anemia Easy bruising History of diverticulitis History of IBS Non-smoker Shortness of breath on exertion Contraceptive management GERD (gastroesophageal reflux disease) Vitamin D deficiency Hyperhidrosis Hypertension Home Medications ?Medication ?Instructions ?Recorded ?Last Taken ?Type lisinopril 5 mg tablet 5 mg PO QDAY 01/16/18 18:00 History potassium chloride 10 mEq 10 meq PO QDAY 01/16/1806/23 18:00 History tablet,extended release (Klor-Con) fluoxetine 40 mg capsule (Prozac) 40 mg PO DAILY 01/0605/06/25 16:00 History levonorgestrel 20.4 mcg/24 hr (up 1 device intrauterin e ONCE 01/06/22 Unknown History to 8 yrs) 52 mg intrauterine device (Liletta) bupropion HCl 150 mg 24 hr tablet, 150 mg PO QDAY 12/0105/06/25 06:00 History extended release tirzepatide 2.5 mg/0.5 mL 2.5 mg subcut FR 12/26/24 History subcutaneous pen injector (Mounjaro) lansoprazole 15 mg capsule,delayed 15 mg PO DAILY 12/2405/06/25 18:00 History release (Prevacid 24Hr) valacyclovir 500 mg tablet 500 mg PO BID PRN cold sore s 03/31/25 Unknown History (Valtrex) hyoscyamine sulfate 0.125 mg tablet 0.125 mg PO Q12H P RN PRN dyspepsia 05/05/25 05/06/25 18:00 History clindamycin HCl 150 mg capsule 150 mg PO TID 5 days #1 5 caps 05/07/25 Unknown Rx (Cleocin HCl) ondansetron 4 mg disintegrating 4 mg PO Q8H PRN nausea and 05/07/25 Unknown Rx tablet vomiting #10 tabs Allergy/AdvReac Type Severity Reaction Status Date / Time erythromycin base Allergy Anaphylaxis Verified 05/26/25 20:15 penicillin V Allergy unknown Verified 05/26/25 20:15 Sulfa (Sulfonamide Allergy Anaphylaxis Verified 05/26/25 20:15 Antibiotics) Family History Mother Hypertension CVA (cerebral vascular accident) Father Hypertension Surgical History Hx of LASIK S/P cholecystectomy H/O: Social History (Updated 05/26/25 @ 21:39 by Liv Wilkins) household members: spouse housing: house Smoking Status: Never smoker alcohol intake: never substance use type: does not use caffeine: Yes what type of physical activity do you participate in: none seatbelt use: always do you feel safe at home: Yes 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 There is some redness along the inferior incisions bilaterally. No induration. No drainage. Lab / Micro Data 05/26/25 20:51 05/26/25 20:51 Charges/Coding Procedures Integumentary 111xxx-113xx: [id number] Global Visit 05/26/252153 <Electronically signed by Yannick Bourne MD> Cosigner Signature (if applicable): CC: Clemencia Guadalupe DO~ Signed [place] Work Phone: 1([phone] Consult note [facility] Medical Records Department [address] [place] [id number] Consultation - Surgical 05/26/252043 MR#: [id number] Acct: [id number] Name: PATRIA JOHNSON Rep #:[id number] : 1970 54 From: Yannick Bourne MD PCP: Clemencia Guadlaupe DO Status:PRE ER Location: ED Assessment & Plan Assessment/Plan (1) Status post breast reduction: PLAN: Given redness, will admit overnight for cellulitis. IV Clindamycin and ciprofloxacin Lovenox and SCDs for DVT pxx. WTD dressings BID to the right and left breast wounds . Patient happy with the plan HPI Consult Data Date of Consult: 05/26/25 HPI Narrative HPI Narrative: PATRIA JOHNSON is a 54 YO FM who presents with malaise and breast redness after breast reduction on 2024. Reports that it started 2 days ago. Tonight in the ED, WBC 10 K. No fever, stable VS. PFSH Medical History Depression Anxiety Diabetes Arthritis Anemia Easy bruising History of diverticulitis History of IBS Non-smoker Shortness of breath on exertion Contraceptive management GERD (gastroesophageal reflux disease) Vitamin D deficiency Hyperhidrosis Hypertension Home Medications ?Medication ?Instructions ?Recorded ?Last Taken ?Type lisinopril 5 mg tablet 5 mg PO QDAY 01/16/18 18:00 History potassium chloride 10 mEq 10 meq PO QDAY 01/16/1806/23 18:00 History tablet,extended release (Klor-Con) fluoxetine 40 mg capsule (Prozac) 40 mg PO DAILY 01/0605/06/25 16:00 History levonorgestrel 20.4 mcg/24 hr (up 1 device intrauterin e ONCE 01/06/22 Unknown History to 8 yrs) 52 mg intrauterine device (Liletta) bupropion HCl 150 mg 24 hr tablet, 150 mg PO QDAY 12/0105/06/25 06:00 History extended release tirzepatide 2.5 mg/0.5 mL 2.5 mg subcut FR 12/26/24 History subcutaneous pen injector (Mounjaro) lansoprazole 15 mg capsule,delayed 15 mg PO DAILY 12/2405/06/25 18:00 History release (Prevacid 24Hr) valacyclovir 500 mg tablet 500 mg PO BID PRN cold sore s 03/31/25 Unknown History (Valtrex) hyoscyamine sulfate 0.125 mg tablet 0.125 mg PO Q12H P RN PRN dyspepsia 05/05/25 05/06/25 18:00 History clindamycin HCl 150 mg capsule 150 mg PO TID 5 days #1 5 caps 05/07/25 Unknown Rx (Cleocin HCl) ondansetron 4 mg disintegrating 4 mg PO Q8H PRN nausea and 05/07/25 Unknown Rx tablet vomiting #10 tabs Allergy/AdvReac Type Severity Reaction Status Date / Time erythromycin base Allergy Anaphylaxis Verified 05/26/25 20:15 penicillin V Allergy unknown Verified 05/26/25 20:15 Sulfa (Sulfonamide Allergy Anaphylaxis Verified 05/26/25 20:15 Antibiotics) Family History Mother Hypertension CVA (cerebral vascular accident) Father Hypertension Surgical History Hx of LASIK S/P cholecystectomy H/O: Social History (Updated 05/26/25 @ 21:39 by Liv Wilkins) household members: spouse housing: house Smoking Status: Never smoker alcohol intake: never substance use type: does not use caffeine: Yes what type of physical activity do you participate in: none seatbelt use: always do you feel safe at home: Yes 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 There is some redness along the inferior incisions bilaterally. No induration. No drainage. Lab / Micro Data 05/26/25 20:51 05/26/25 20:51 Charges/Coding Procedures Integumentary 111xxx-113xx: 39370 Global Visit 05/26/254 Cosigner Signature (if applicable): CC: Clemencia Guadalupe, DO~ Signed [place]07-10-2025 Discharge summary Author Yannick Bourne [place] Note Date/Time May 08, 2025 7:12 am [facility] Medical Records Department [address] [place] [address] Discharge Summary 05/08/25 0710 MR#: [id number] Acct: [id number] Name: GLORIAPATRIA RIGOBERTO Rep #:[id number] : 1970 54 From: Yannick Bourne MD PCP: Clemencia Guadalupe DO Status:ADM GALILEA Location: [place] [address] Providers Date of Admission: 05/07/25 Primary Care Physician: Clemencia Guadalupe [facility] Reason For Visit: Breast reduction with possible free Diagnosis Discharge Diagnosis (1) Macromastia: Status: Acute Code(s): N62 - Hypertrophy of breast Plan: Photos obtained We have ordered a screening mammogram and patient in agreement I talked the patient extensively about the risks of surgery, including bleeding,asymmetry (we discussed existing asymmetries), nipple loss, need for free nipplegrafts, infection, damage to surrounding structures, surgical site dehiscence and wound formation, need for wound care, need for repeat operations, failure toobtain the desired result, DVT/PE, and the risks of anesthesia including , including stroke (from low blood pressure/ischemia or clot). The benefits andalternatives of this surgery were also discussed. All of their questions were answered, and they agreed to proceed with surgery. Plan According to Schnur scale I could remove 750 gm per side. I would plan superior medial pedicle v Inferior pedicle with Alan pattern skin reduction Caprini score is 4 (As long as she would stop taking contraceptive 4 weeks before surgery, otherwise it is 5) Plan to submit to insurance for surgery as she meets the criteria for macromastia Plan from 27 Feb 2025: Mammogram up-to-date, BI-RADS 1. Patient would like to go forward with breast reduction. I talked to the patient extensively about the risks of surgery, including bleeding, infection, damage to surrounding structures, poor scaring, nipple necrosis, possible need for free nipple grafts, alterations in nipple sensation (possibly permanent), nipple inversion, surgical site dehiscence and wound formation, fat necrosis, fluid collections, need for wound care, need for repeatoperations, failure to obtain the desired result, DVT/PE, and the risks of anesthesia including , including stroke (from low blood pressure/ischemia or clot). The benefits and alternatives of this surgery were also discussed. All of their questions were answered, and they agreed to proceed with surgery. INTERVAL H&P PLAN, DATE OF SURGERY: We will proceed with surgery today. We further discussed again the above-noted risks, benefits and alteratives. She would like to proceed. Plan superior medial pedicle v Inferior Pedicle with alan pattern skin reduction, possible free nipple grafts Medications at Discharge Home Medications lisinopril 5 mg tablet 5 mg PO QDAY 01/16/18 potassium chloride 10 mEq tablet,extended release (Klor-Con) 10 meq PO QDAY 01/16/18 fluoxetine 40 mg capsule (Prozac) 40 mg PO DAILY 01/06/22 levonorgestrel 20.4 mcg/24 hr (up to 8 yrs) 52 mg intrauterine device (Liletta) 1 device intrauterine ONCE 01/06/22 bupropion HCl 150 mg 24 hr tablet, extended release 150 mg PO QDAY 12/26/24 tirzepatide 2.5 mg/0.5 mL subcutaneous pen injector (Mounjaro) 2.5 mg subcut FR 12/26/24 lansoprazole 15 mg capsule,delayed release (Prevacid 24Hr) 15 mg PO DAILY 03/31/25 valacyclovir 500 mg tablet (Valtrex) 500 mg PO BID PRN cold sores 03/31/25 hyoscyamine sulfate 0.125 mg tablet 0.125 mg PO Q12H PRN PRN dyspepsia 05/05/25 clindamycin HCl 150 mg capsule (Cleocin HCl) 150 mg PO TID 5 days #15 caps 05/07/25 ondansetron 4 mg disintegrating tablet 4 mg PO Q8H PRN nausea and vomiting #10 tabs 05/07/25 oxycodone 5 mg tablet 5 mg PO Q4H PRN pain 5 days #20 tabs 05/07/25 Hospital Course Operations - (Breast reduction) Summary of Care Provided Hospital Course: Patient doing well today postop day 1. She had Alan pattern inferior pedicle breast reduction with lateral liposuction yesterday. Pain controlled. Drains with appropriate output. No shortness of breath. She feels comfortable managing the drains at home. She is voided appropriately postop and has been upin a chair. She will walk with nursing this morning before discharge. 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 Appropriate bruising. Drains are serosanguineous and stripped well with appropriate output. The nipples are warm and viable bilaterally with good capillary refill and normal color. Weight / BMI Weight Weight: 238 lb 1.588 oz Body Mass Index (BMI) 40.8 ABG / Lab / Microbiology Data 05/08/25 05:22 05/08/25 05:22 Laboratory: Laboratory Results - last 24 hr 05/07/25 07:05: POC Glucose 119 H 05/07/25 10:03: POC Glucose 133 H 05/08/25 05:22: WBC 10.6, RBC 4.18 L, Hgb 12.4, Hct 36.7 L, MCV 87.8, MCH 29.7, MCHC 33.8, RDW Std Deviation 43.8, RDW Coeff of Edison 13.7, Plt Count 253, MPV 9.6, Immature Gran % (Auto) 0.400, Neut % (Auto) 58.5, Lymph % (Auto) 25.8, Garza% (Auto) 11.8 H, Eos % (Auto) 3.1, Baso % (Auto) 0.4, Absolute Neuts (auto) 6.2,Absolute Lymphs (auto) 2.73, Nucleated RBC % 0, Sodium 137, Potassium 3.5, Chloride 101, Carbon Dioxide 24.6, Anion Gap 11, BUN 12, Creatinine 0.95, Estim Creat Clear Calc 82.19, Est GFR (MDRD) Non-Af 72, BUN/Creatinine Ratio 12.8, Glucose 115 H, Calcium 8.5 D/C Instructions DC O2, CPAP, BIPAP Needs Home O2 Discharge instructions: No Meaningful Use Info Meaningful Use Meaningful Use Diagnoses (Choose all that apply): None applicable Ischemic Stroke Statin Dosing Therapy Reference: STATIN DOSE THERAPY REFERENCE: * Patients > 75 years receive moderate or high dose statin therapy. * Patients 75 years or YOUNGER should receive HIGH intensity statin dose unless contraindicated. You will be required to document reason for non-treatment if statin daily dose does not meet guidelines. HIGH DOSE STATIN THERAPY DAILY Atorvastatin > than or = to 40 mg Rosuvastatin > than or = to 20 mg Amlodipine + Atorvastatin > than or = to 2.5/40 mg Ezetimibe + Simvastatin 10/80 mg Simvastatin 80mg Discharge Plan Admission Admit Date/Time: 05/07/25 07:14 Attending Provider: Yannick Bourne Primary Care Provider: Clemencia Guadalupe [facility] Instructions Additional Instructions / Restrictions: Operations Performed: Breast reduction Instructions for My Care at Home or Healthcare Facility The following instructions will help you know what to expect in the days following surgery. These are general instructions. Your surgeon and therapist may give you special instructions, which vary to some degree based on your specific procedure -- follow those as directed. Do not, however, hesitate to call if you have any questions or concerns. Splint Care/Dressing Care/Wound Care * Dressings - You may have a dressing over the operative site. * You can wear the loose bra with the pads for comfort * OK to shower with occlusive dressing over the drain on Monday. Do not submerge under water until cleared by Dr. Bourne * If the dressing feels too tight after you get home, it is ok to gently pull on the dressing to stretch it out/loosen it. * Avoid smoking or other tobacco products. Smoking tobacco impairs wound healing and increases the risks of post-operative complications. * Tape over your incisions (if present) will fall off on its own ? Activities * For the first 4 weeks after surgery, try to balance your activity, allowing time for rest. * Avoid lifting, pushing, or pulling anything over 5 pounds. * Do not drive or operate heavy machinery within 24 hrs of surgery or while taking narcotic pain medication.? * No pressure/laying on the breasts Drain Care:? A drain has been placed during surgery in order to prevent the accumulation of fluids beneath your skin. The drain decreases the chance of infection and helps in the healing process. The nursing staff will instruct you and your family on the care and recording of drainage. ? * You may shower with them. Let soap and water run down over drains, rinse and pat dry with clean towel. Reinforce with gauze or ABD pad around drain site if leaking occurs around the drain; this is not unusual.?Hold drains in your hand or attach to lanyard (or string) around your neck with safety pin so they do not hang from your body (the tension on your skin may cause them to be pulled out) while your are showering. * The drains are attached to you with suture. If your drain(s) falls out accidentally, place a clean piece of gauze over the drain site with tape and discard your drain.? * If your drain bulb loses suction or your drain has migrated out from the drain site, do not attempt to push the drain back into your skin. Cover the area with dry gauze. You may be asked by your surgeon to place a piece of semi occlusive dressing (tegaderm) over the drain site to keep the site clean and drain in place until you are seen in the office.? * When you are wearing clothes, attach drains to your clothes in a place where there is minimal/no tension on the insertion site to your skin.? * You should empty the drainage and record the output at least 2 times per day, or when the drainage fills the bulb almost custodial. Please keep daily amounts of drainage separate for each drain for a 24-hour period (for example drain #1 put out 40 mL for 24 hours).? * Strip your drains daily as shown to you by your nurse prior to discharge to avoid them from becoming clogged:? * Wash your hands. * Strip tubing three times a day (more often if there are a lot of blood clots). * Grasp tubing close to body with one hand and pull toward body. With other hand grasp tubing below the first hand. Using an alcohol swab, pinch tubing tightly, sliding fingers down tubing, away from body. * Repeat 2 or 3 times. Be sure drainage is flowing into bulbs. * Measure the drainage in the bulb by either using the calibrations on the bulb or by emptying the Bulb into small measuring container 3 times a day (more often if there is a lot of drainage or they feel heavy) Open small lid on top of bulb. Pour drainage into container. Squeeze bulb and hold while replacing small lid. Bulb should be collapsed to be effective. Pin bulb to clothing so the weight will not pull on the insertion site. * Measure drainage and record amount each time you empty the bulbs. Hold container at eye level to read the numbers on the side of the container. Read the numbers in the ml column. Record amount of drainage on chart. * Record your drain output daily and bring this record with you to your next follow up appointment. Drains will typically be removed in the clinic when output is less than 30 mL/24 hours per drain over 2 consecutive days. For drain removal appointment, please call your doctors office directly to schedule.? Location: Drain #1 Drain #2 Drain #3 Drain #4 0 0 0 AM Noon PM AM Noon PM AM Noon PM AM Noon PM Date: Total (daily) 0 0 0 AM Noon PM AM Noon PM AM Noon PM AM Noon PM Date: Total (daily) 0 0 0 AM Noon PM AM Noon PM AM Noon PM AM Noon PM Date: Total (daily) 0 0 0 AM Noon PM AM Noon PM AM Noon PM AM Noon PM Date: Total (daily) 0 0 0 AM Noon PM AM Noon PM AM Noon PM AM Noon PM Date: Total (daily) 0 0 0 AM Noon PM AM Noon PM AM Noon PM AM Noon PM Date: Total (daily) 0 0 0 AM Noon PM AM Noon PM AM Noon PM AM Noon PM Date: Total (daily) 0 0 0 AM Noon PM AM Noon PM AM Noon PM AM Noon PM Date: Total (daily) 0 0 0 AM Noon PM AM Noon PM AM Noon PM AM Noon PM Date: Total (daily) 0 0 0 AM Noon PM AM Noon PM AM Noon PM AM Noon PM Date: Total (daily) 0 0 0 AM Noon PM AM Noon PM AM Noon PM AM Noon PM Date: Total (daily) 0 0 0 AM Noon PM AM Noon PM AM Noon PM AM Noon PM Date: Total (daily) 0 0 0 AM Noon PM AM Noon PM AM Noon PM AM Noon PM Date: Total (daily) 0 0 0 AM Noon PM AM Noon PM AM Noon PM AM Noon PM Date: Total (daily) 0 0 0 AM Noon PM AM Noon PM AM Noon PM AM Noon PM Date: Total (daily) 0 0 0 Pain Control/Medications * If you received an anesthetic block, your hand or arm may be numb for several hours. You will be discharged to home with medications, including an oral pain medication (analgesic). Rest and elevation are still one of the most important factors for pain control. Take your pain medication as needed, but do not wait for the pain to become out of control. * For severe pain, you may take prescription pain medication as directed, but please note that this may also contain Tylenol (e.g. Percocet). Do not take more than 4000mg of Tylenol (acetaminophen) from all sources daily.? * Pain medication may cause some lethargy, nausea, and or constipation. You should not drive/operate dangerous machinery while taking these medications. If these or other symptoms become significantly problematic, please your surgeon's office. * If prescribed oral antibiotics (Keflex, Clindamycin, or others), please take prescription for full duration as instructed. You should not have any pills remaining once completed (refills are written for your convenience should the course need to be extended, but generally they are not required). Diet (what I can eat): Resume normal diet Follow up * You will be seen (most likely) 1 to 2 weeks after surgery depending on the procedure. Follow-up appointment reminders:? (A list of any scheduled appointments is at the end of this document)? At your earliest convenience, please call [phone] to confirm/schedule a follow-up appointment with me in clinic. When to call your surgeon: * If any signs of surgical site infection develop: redness, pus, pain, increased swelling or foul odor at the incision site, fever, cold and clammy skin, or confusion. * Consistent temperature above 101?F (38.3?C). * The affected area gets swollen or much more painful. * You have excessive bleeding from surgical site (soaking through). If you experience difficulty breathing and/or shortness of breath, seek immediate medical attention. If experiencing any of the above complications or if you have any questions, call [phone] Discharge Orders/Prescriptions Prescriptions: New oxycodone 5 mg tablet 5 mg PO Q4H PRN (Reason: pain) 5 Days Qty: 20 0RF clindamycin HCl [Cleocin HCl] 150 mg capsule 150 mg PO TID 5 Days Qty: 15 0RF ondansetron 4 mg tablet,disintegrating 4 mg PO Q8H PRN (Reason: nausea and vomiting) Qty: 10 0RF No Action lisinopril 5 mg tablet 5 mg PO QDAY potassium chloride [Klor-Con 10] 10 mEq tablet extended release 10 meq PO QDAY fluoxetine [Prozac] 40 mg capsule 40 mg PO DAILY Liletta 20.1 mcg/24 hrs (6 yrs) 52 mg intrauterine device 1 device intrauterine ONCE Rx Instructions: as a single dose bupropion HCl 150 mg tablet extended release 24 hr 150 mg PO QDAY Mounjaro 2.5 mg/0.5 mL pen injector 2.5 mg subcut FR valacyclovir [Valtrex] 500 mg tablet 500 mg PO BID PRN (Reason: cold sores) lansoprazole [Prevacid 24Hr] 15 mg capsule,delayed release(DR/EC) 15 mg PO DAILY hyoscyamine sulfate 0.125 mg tablet 0.125 mg PO Q12H PRN PRN (Reason: dyspepsia) Referrals / Follow Up: Clemencia Guadalupe DO [Primary Care Provider] - Disposition Disposition (needs filled in before D/C Order can be placed): Home, Self Care 05/08/2512 <Electronically signed by Yannick Bourne MD> Cosigner Signature (if applicable): CC: Dr. Yannick Bourne MD; Clemencia Guadalupe DO~ Signed [place] Work Phone: [phone]) 261-158107-10-2025 Discharge summary [facility] Medical Records Department [address] [place] [address] Discharge Summary 05/08/25709 MR#: [id number] Acct: [id number] Name: PATRIA JOHNSON Rep #:[id number] : 1970 54 From: Yannick Bourne MD PCP: Clemencia Guadalupe DO Status:ADM GALILEA Location: [place] [address] Providers Date of Admission: 05/07/25 Primary Care Physician: JOSE Carson DO Reason For Visit: Breast reduction with possible free Diagnosis Discharge Diagnosis (1) Macromastia: Status: Acute Code(s): N62 - Hypertrophy of breast Plan: Photos obtained We have ordered a screening mammogram and patient in agreement I talked the patient extensively about the risks of surgery, including bleeding,asymmetry (we discussed existing asymmetries), nipple loss, need for free nipplegrafts, infection, damage to surrounding structures, surgical site dehiscence and wound formation, need for wound care, need for repeat operations, failure toobtain the desired result, DVT/PE, and the risks of anesthesia including , including stroke (from low blood pressure/ischemia or clot). The benefits andalternatives of this surgery were also discussed. All of their questions were answered, and they agreed to proceed with surgery. Plan According to Schnur scale I could remove 750 gm per side. I would plan superior medial pedicle v Inferior pedicle with Alan pattern skin reduction Caprini score is 4 (As long as she would stop taking contraceptive 4 weeks before surgery, otherwise it is 5) Plan to submit to insurance for surgery as she meets the criteria for macromastia Plan from 27 Feb 2025: Mammogram up-to-date, BI-RADS 1. Patient would like to go forward with breast reduction. I talked to the patient extensively about the risks of surgery, including bleeding, infection, damage to surrounding structures, poor scaring, nipple necrosis, possible need for free nipple grafts, alterations in nipple sensation (possibly permanent), nipple inversion, surgical site dehiscence and wound formation, fat necrosis, fluid collections, need for wound care, need for repeatoperations, failure to obtain the desired result, DVT/PE, and the risks of anesthesia including , including stroke (from low blood pressure/ischemia or clot). The benefits and alternatives of this surgery werealso discussed. All of their questions were answered, and they agreed to proceed with surgery. INTERVAL H&P PLAN, DATE OF SURGERY: We will proceed with surgery today. We further discussed again the above-noted risks, benefits and alteratives. She would like to proceed. Plan superior medial pedicle v Inferior Pedicle with alan pattern skin reduction, possible free nipple grafts Medications at Discharge Home Medications lisinopril 5 mg tablet 5 mg PO QDAY 01/16/18 potassium chloride 10 mEq tablet,extended release (Klor-Con) 10 meq PO QDAY 01/16/18 fluoxetine 40 mg capsule (Prozac) 40 mg PO DAILY 01/06/22 levonorgestrel 20.4 mcg/24 hr (up to 8 yrs) 52 mg intrauterine device (Liletta) 1 device intrauterine ONCE 01/06/22 bupropion HCl 150 mg 24 hr tablet, extended release 150 mg PO QDAY 12/26/24 tirzepatide 2.5 mg/0.5 mL subcutaneous pen injector (Mounjaro) 2.5 mg subcut FR 12/26/24 lansoprazole 15 mg capsule,delayed release (Prevacid 24Hr) 15 mg PO DAILY 03/31/25 valacyclovir 500 mg tablet (Valtrex) 500 mg PO BID PRN cold sores 03/31/25 hyoscyamine sulfate 0.125 mg tablet 0.125 mg PO Q12H PRN PRN dyspepsia 05/05/25 clindamycin HCl 150 mg capsule (Cleocin HCl) 150 mg PO TID 5 days #15 caps 05/07/25 ondansetron 4 mg disintegrating tablet 4 mg PO Q8H PRN nausea and vomiting #10 tabs 05/07/25 oxycodone 5 mg tablet 5 mg PO Q4H PRN pain 5 days #20 tabs 05/07/25 Hospital Course Operations - (Breast reduction) Summary of Care Provided Hospital Course: Patient doing well today postop day 1. She had Alan pattern inferior pedicle breast reduction with lateral liposuction yesterday. Pain controlled. Drains with appropriate output. No shortness of breath. She feels comfortable managing the drains at home. She is voided appropriately postop and has been upin a chair. She will walk with nursing this morning before discharge. 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 Appropriate bruising. Drains are serosanguineous and stripped well with appropriate output. The nipples are warm and viable bilaterally with good capillary refill and normal color. Weight / BMI Weight Weight: 238 lb 1.588 oz Body Mass Index (BMI) 40.8 ABG / Lab / Microbiology Data 05/08/25 05:22 05/08/25 05:22 Laboratory: Laboratory Results - last 24 hr 05/07/25 07:05: POC Glucose 119 H 05/07/25 10:03: POC Glucose 133 H 05/08/25 05:22: WBC 10.6, RBC 4.18 L, Hgb 12.4, Hct 36.7 L, MCV 87.8, MCH 29.7, MCHC 33.8, RDW Std Deviation 43.8, RDW Coeff of Edison 13.7, Plt Count 253, MPV 9.6, Immature Gran % (Auto) 0.400, Neut % (Auto) 58.5, Lymph % (Auto) 25.8, Garza% (Auto) 11.8 H, Eos % (Auto) 3.1, Baso % (Auto) 0.4, AbsoluteNeuts (auto) 6.2,Absolute Lymphs (auto) 2.73, Nucleated RBC % 0, Sodium 137, Potassium 3.5, Chloride 101, Carbon Dioxide 24.6, Anion Gap 11, BUN 12, Creatinine 0.95, Estim Creat Clear Calc 82.19, EstGFR (MDRD) Non-Af 72, BUN/Creatinine Ratio 12.8, Glucose 115 H, Calcium 8.5 D/C Instructions DC O2, CPAP, BIPAP Needs Home O2 Discharge instructions: No Meaningful Use Info Meaningful Use Meaningful Use Diagnoses (Choose all that apply): None applicable Ischemic Stroke Statin Dosing Therapy Reference: STATIN DOSE THERAPY REFERENCE: * Patients > 75 years receive moderate or high dose statin therapy. * Patients 75 years or YOUNGER should receive HIGH intensity statin dose unless contraindicated. You will be required to document reason for non-treatment if statin daily dose does not meet guidelines. HIGH DOSE STATIN THERAPY DAILY Atorvastatin > than or = to 40 mg Rosuvastatin > than or = to 20 mg Amlodipine + Atorvastatin > than or = to 2.5/40 mg Ezetimibe + Simvastatin 10/80 mg Simvastatin 80mg Discharge Plan Admission Admit Date/Time: 05/07/25 07:14 Attending Provider: Yannick Bourne Primary Care Provider: Clemencia Guadalupe [facility] Instructions Additional Instructions / Restrictions: Operations Performed: Breast reduction Instructions for My Care at Home or Healthcare Facility The following instructions will help you know what to expect in the days following surgery. These are general instructions. Your surgeon and therapist may give you special instructions, which vary tosome degree based on your specific procedure -- follow those as directed. Do not, however, hesitateto call if you have any questions or concerns. Splint Care/Dressing Care/Wound Care * Dressings - You may have a dressing over the operative site. * You can wear the loose bra with the pads for comfort * OK to shower with occlusive dressing over the drain on Monday. Do not submerge under water until cleared by Dr. Bourne * If the dressing feels too tight after you get home, it is ok to gently pull on the dressing to stretch it out/loosen it. * Avoid smoking or other tobacco products. Smoking tobacco impairs wound healing and increases the risks of post-operative complications. * Tape over your incisions (if present) will fall off on its own ? Activities * For the first 4 weeks after surgery, try to balance your activity, allowing time for rest. * Avoid lifting, pushing, or pulling anything over 5 pounds. * Do not drive or operate heavy machinery within 24 hrs of surgery or while taking narcotic pain medication.? * No pressure/laying on the breasts Drain Care:? A drain has been placed during surgery in order to prevent the accumulation of fluids beneath your skin. The drain decreases the chance of infection and helps in the healing process. The nursing staff will instruct you and your family on the care and recording of drainage. ? * You may shower with them. Let soap and water run down over drains, rinse and pat dry with clean towel. Reinforce with gauze or ABD pad around drain site if leaking occurs around the drain; this is not unusual.?Hold drains in your hand or attach to lanyard (or string) around your neck with safety pin so they do not hang from your body (the tension on your skin may cause them to be pulled out) while your are showering. * The drains are attached to you with suture. If your drain(s) falls out accidentally, place a clean piece of gauze over the drain site with tape and discard your drain.? * If your drain bulb loses suction or your drain has migrated out from the drain site, do not attempt to push the drain back into your skin. Cover the area with dry gauze. You may be asked by your surgeon to place a piece of semi occlusive dressing (tegaderm) over the drain site to keep the site clean and drain in place until you are seen in the office.? * When you are wearing clothes, attach drains to your clothes in a place where there is minimal/no tension on the insertion site to your skin.? * You should empty the drainage and record the output at least 2 times per day, or when the drainage fills the bulb almost custodial. Please keep daily amounts of drainage separate for each drain for [id number] period (for example drain #1 put out 40 mL for 24 hours).? * Strip your drains daily as shown to you by your nurse prior to discharge to avoid them from becoming clogged:? * Wash your hands. * Strip tubing three times a day (more often if there are a lot of blood clots). * Grasp tubing close to body with one hand and pull toward body. With other hand grasp tubing belowthe first hand. Using an alcohol swab, pinch tubing tightly, sliding fingers down tubing, away frombody. * Repeat 2 or 3 times. Be sure drainage is flowing into bulbs. * Measure the drainage in the bulb by either using the calibrations on the bulb or by emptying the Bulb into small measuring container 3 times a day (more often if there is a lot of drainage or they feel heavy) Open small lid on top of bulb. Pour drainage into container. Squeeze bulb and hold whilereplacing small lid. Bulb should be collapsed to be effective. Pin bulb to clothing so the weight wi ll not pull on the insertion site. * Measure drainage and record amount each time you empty the bulbs. Hold container at eye level to read the numbers on the side of the container. Read the numbers in the ml column. Record amount of drainage on chart. * Record your drain output daily and bring this record with you to your next follow up appointment.Drains will typically be removed in the clinic when output is less than 30 mL/24 hours per drain over 2 consecutive days. For drain removal appointment, please call your doctors office directly to schedule.? Location: Drain #1 Drain #2 Drain #3 Drain #4 0 0 0 AM Noon PM AM Noon PM AM Noon PM AM Noon PM Date: Total (daily) 0 0 0 AM Noon PM AM Noon PM AM Noon PM AM Noon PM Date: Total (daily) 0 0 0 AM Noon PM AM Noon PM AM Noon PM AM Noon PM Date: Total (daily) 0 0 0 AM Noon PM AM Noon PM AM Noon PM AM Noon PM Date: Total (daily) 0 0 0 AM Noon PM AM Noon PM AM Noon PM AM Noon PM Date: Total (daily) 0 0 0 AM Noon PM AM Noon PM AM Noon PM AM Noon PM Date: Total (daily) 0 0 0 AM Noon PM AM Noon PM AM Noon PM AM Noon PM Date: Total (daily) 0 0 0 AM Noon PM AM Noon PM AM Noon PM AM Noon PM Date: Total (daily) 0 0 0 AM Noon PM AM Noon PM AM Noon PM AM Noon PM Date: Total (daily) 0 0 0 AM Noon PM AM Noon PM AM Noon PM AM Noon PM Date: Total (daily) 0 0 0 AM Noon PM AM Noon PM AM Noon PM AM Noon PM Date: Total (daily) 0 0 0 AM Noon PM AM Noon PM AM Noon PM AM Noon PM Date: Total (daily) 0 0 0 AM Noon PM AM Noon PM AM Noon PM AM Noon PM Date: Total (daily) 0 0 0 AM Noon PM AM Noon PM AM Noon PM AM Noon PM Date: Total (daily) 0 0 0 AM Noon PM AM Noon PM AM Noon PM AM Noon PM Date: Total (daily) 0 0 0 Pain Control/Medications * If you received an anesthetic block, your hand or arm may be numb for several hours. You will be discharged to home with medications, including an oral pain medication (analgesic). Rest and elevation are still one of the most important factors for pain control. Take your pain medication as needed, but do not wait for the pain to become out of control. * For severe pain, you may take prescription pain medication as directed, but please note that thismay also contain Tylenol (e.g. Percocet). Do not take more than 4000mg of Tylenol (acetaminophen) from all sources daily.? * Pain medication may cause some lethargy, nausea, and or constipation. You should not drive/operate dangerous machinery while taking these medications. If these or other symptoms become significantly problematic, please your surgeon's office. * If prescribed oral antibiotics (Keflex, Clindamycin, or others), please take prescription for full duration as instructed. You should not have any pills remaining once completed (refills are written for your convenience should the course need to be extended, but generally they are not required). Diet (what I can eat): Resume normal diet Follow up * You will be seen (most likely) 1 to 2 weeks after surgery depending on the procedure. Follow-up appointment reminders:? (A list of any scheduled appointments is at the end of this document)? At your earliest convenience, please call [phone] to confirm/schedule a follow-up appointment with me in clinic. When to call your surgeon: * If any signs of surgical site infection develop: redness, pus, pain, increased swelling or foul odor at the incision site, fever, cold and clammy skin, or confusion. * Consistent temperature above 101?F (38.3?C). * The affected area gets swollen or much more painful. * You have excessive bleeding from surgical site (soaking through). If you experience difficulty breathing and/or shortness of breath, seek immediate medical attention. If experiencing any of the above complications or if you have any questions, call [phone] Discharge Orders/Prescriptions Prescriptions: New oxycodone 5 mg tablet 5 mg PO Q4H PRN (Reason: pain) 5 Days Qty: 20 0RF clindamycin HCl [Cleocin HCl] 150 mg capsule 150 mg PO TID 5 Days Qty: 15 0RF ondansetron 4 mg tablet,disintegrating 4 mg PO Q8H PRN (Reason: nausea and vomiting) Qty: 10 0RF No Action lisinopril 5 mg tablet 5 mg PO QDAY potassium chloride [Klor-Con 10] 10 mEq tablet extended release 10 meq PO QDAY fluoxetine [Prozac] 40 mg capsule 40 mg PO DAILY Liletta 20.1 mcg/24 hrs (6 yrs) 52 mg intrauterine device 1 device intrauterine ONCE Rx Instructions: as a single dose bupropion HCl 150 mg tablet extended release 24 hr 150 mg PO QDAY Mounjaro 2.5 mg/0.5 mL pen injector 2.5 mg subcut FR valacyclovir [Valtrex] 500 mg tablet 500 mg PO BID PRN (Reason: cold sores) lansoprazole [Prevacid 24Hr] 15 mg capsule,delayed release(DR/EC) 15 mg PO DAILY hyoscyamine sulfate 0.125 mg tablet 0.125 mg PO Q12H PRN PRN (Reason: dyspepsia) Referrals / Follow Up: Clemencia Guadalupe [facility] [Primary Care Provider] - Disposition Disposition (needs filled in before D/C Order can be placed): Home, Self Care 05/08/25 0712 Cosigner Signature (if applicable): CC: Dr. Yannick Bourne MD; Clemencia Guadalupe DO~ Signed [place]07-10-2025 [facility] Medical Records Department [address] [place] [address] Discharge Summary 05/08/25709 MR#: [id number] Acct: [id number] Name: PATRIA JOHNSON Rep #: [id number] : 1970 54 From: Yannick Bourne MD PCP: Clemencia Guadalupe DO Status:ADM GALILEA Location: [place] [address] Providers Date of Admission: 05/07/25 Primary Care Physician: Clemencia Guadalupe [facility] Reason For Visit: Breast reduction with possible free Diagnosis Discharge Diagnosis (1) Macromastia: Status: Acute Code(s): N62 - Hypertrophy of breast Plan: Photos obtained We have ordered a screening mammogram and patient in agreement I talked the patient extensively about the risks of surgery, including bleeding, asymmetry (we discussed existing asymmetries), nipple loss, need for free nipple grafts, infection, damage to surrounding structures, surgical site dehiscence and wound formation, need for wound care, need for repeat operations, failure to obtain the desired result, DVT/PE, and the risks of anesthesia including , including stroke (from low blood pressure/ischemia or clot). The benefits and alternatives of this surgery were also discussed. All of their questions were answered, and they agreed to proceed with surgery. Plan According to Schnur scale I could remove 750 gm per side. I would plan superior medial pedicle v Inferior pedicle with Alan pattern skin reduction Caprini score is 4 (As long as she would stop taking contraceptive 4 weeks before surgery, otherwise it is 5) Plan to submit to insurance for surgery as she meets the criteria for macromastia Plan from 27 Feb 2025: Mammogram up-to-date, BI-RADS 1. Patient would like to go forward with breast reduction. I talked to the patient extensively about the risks of surgery, including bleeding, infection, damage to surrounding structures, poor scaring, nipple necrosis, possible need for free nipple grafts, alterations in nipple sensation (possibly permanent), nipple inversion, surgical site dehiscence and wound formation, fat necrosis, fluid collections, need for wound care, need for repeat operations, failure to obtain the desired result, DVT/PE, and the risks of anesthesia including , including stroke (from low blood pressure/ischemia or clot). The benefits and alternatives of this surgery were also discussed. All of their questions were answered, and they agreed to proceed with surgery. INTERVAL H P PLAN, DATE OF SURGERY: We will proceed with surgery today. We further discussed again the above-noted risks, benefits and alteratives. She would like to proceed. Plan superior medial pedicle v Inferior Pedicle with alan pattern skin reduction, possible free nipple grafts Medications at Discharge Home Medications lisinopril 5 mg tablet 5 mg PO QDAY 01/16/18 potassium chloride 10 mEq tablet,extended release (Klor-Con) 10 meq PO QDAY 01/16/18 fluoxetine 40 mg capsule (Prozac) 40 mg PO DAILY 01/06/22 levonorgestrel 20.4 mcg/24 hr (up to 8 yrs) 52 mg intrauterine device (Liletta) 1 device intrauterine ONCE 01/06/22 bupropion HCl 150 mg 24 hr tablet, extended release 150 mg PO QDAY 12/26/24 tirzepatide 2.5 mg/0.5 mL subcutaneous pen injector (Mounjaro) 2.5 mg subcut FR 12/26/24 lansoprazole 15 mg capsule,delayed release (Prevacid 24Hr) 15 mg PO DAILY 03/31/25 valacyclovir 500 mg tablet (Valtrex) 500 mg PO BID PRN cold sores 03/31/25 hyoscyamine sulfate 0.125 mg tablet 0.125 mg PO Q12H PRN PRN dyspepsia 05/05/25 clindamycin HCl 150 mg capsule (Cleocin HCl) 150 mg PO TID 5 days #15 caps 05/07/25 ondansetron 4 mg disintegrating tablet 4 mg PO Q8H PRN nausea and vomiting #10 tabs 05/07/25 oxycodone 5 mg tablet 5 mg PO Q4H PRN pain 5 days #20 tabs 05/07/25 Hospital Course Operations - (Breast reduction) Summary of Care Provided Hospital Course: Patient doing well today postop day 1. She had Alan pattern inferior pedicle breast reduction with lateral liposuction yesterday. Pain controlled. Drains with appropriate output. No shortness of breath. She feels comfortable managing the drains at home. She is voided appropriately postop and has been up in a chair. She will walk with nursing this morning before discharge. 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 Appropriate bruising. Drains are serosanguineous and stripped well with appropriate output. The nipples are warm and viable bilaterally with good capillary refill and normal color. Weight / BMI Weight Weight: 238 lb 1.588 oz Body Mass Index (BMI) 40.8 ABG / Lab / Microbiology Data 05/08/25 05:22 05/08/25 05:22 Laboratory: Laboratory Results - last 24 hr 05/07/25 (more content not included)...[place]07-09-2025 Consult note Author Desean Bateman [place] Note Date/Time May 07, 2025 1:45p m [facility] Medical Records Department [address] [place] [address] Anesthesia Postop Eval II 05/07/25 1344 MR#: [id number] Acct: [id number] Name: PATRIA JOHNSON Rep #:[id number] : 1970 54 From: Desean Ronquillo PCP: Clemencia Guadalupe DO Status:ADM GALILEA Y Race: C Location: [place] [address] Anesthesia Postop Eval I Sum Postop Eval Completion status Anesthesia document: Postop Eval 1 completed: Yes Anesthesia Postop Eval I Summary Anesthesia Postop Eval I Summary: Anesthesia Postop Eval I: Assessment Summary Airway patent Yes 05/07/25 12:58 [email or web address] Spontaneous unlabored Yes 05/07/25 12:58 [email or web address] respirations Mental status Awake,Calm 05/07/25 12:58 [email or web address] nausea No 05/07/25 12:58 [email or web address] Vomiting No 05/07/25 12:58 [email or web address] Anesthesia Postop Eval I: Fluid Summary Crystalloid volume administer 2,100 05/07/25 12:58 [email or web address] (ml) Colloids volume administered ( ml) Blood Product volume administered (ml) Total IV fluid infused 2,100 05/07/25 12:58 [email or web address] Anesthesia Postop Eval I: Summary Notes Anesthesia Complication No 05/07/25 12:58 [email or web address] Anesthesia Complication Comment: Post-operative progress note Anesthesia: Postop Eval II Evaluation Mental status: Awake and Calm Pain Level: 1 nausea: No Vomiting: No Complications Anesthesia Complication: No 05/07/25 1345 <Electronically signed by Desean Bateman MD> Date _ Desean Pena Signature: Date CC: ~ Signed [place] Work Phone: 1(458) 834-840107-09-2025 Consult note Author Iris Berg [place] Note Date/Time May 07, 2025 12:58 pm [facility] Medical Records Department [address] [place] [address] Anesthesia Postop Eval I 05/07/25 1257 MR#: [id number] Acct: [id number] Name: PATRIA JOHNSON Rep #:[id number] : 1970 54 From: Iris HALLMAN PCP: Clemencia Guadalupe DO Status:REG SDC Y Race: C Location: [place] [address] Anesthesia: Postop Eval I Current Vital Signs Temperature: 97.6 F Pulse Rate: 89 Blood Pressure: 131/81 Respiratory Rate: 16 Pulse Ox: 99 Oxygen Delivery Method: Simple Mask Oxygen Flow Rate (L/min): 6 Assessment Airway patent: Yes Spontaneous unlabored respirations: Yes Mental status: Awake and Calm nausea: No Vomiting: No Anesthesia Complication: No Fluid Hydration Crystalloid volume administer (ml): 2,100 Total IV fluid infused: 2,100 Progress Note Anesthesia document: Postop Eval 1 completed: Yes 05/07/25 1258 <Electronically signed by Iris Berg CRNA> Date _ Iris Pena Signature: Date CC: ~ Signed [place] Work Phone: 1(865) 534-865107-09-2025 Procedure note [facility] Medical Records Department [address] [place] [address] Operative Report 05/07/25 1443 MR#: [id number] Acct: [id number] Name: PATRIA JOHNSON Rep #:[id number] : 1970 54 From: Yannick Bourne MD PCP: Clemencia Guaadlupe DO Status:ADM GALILEA Location: [place] [address] Operative Report (Standard) Operative Information Date of Procedure: 05/07/25 Pre-Operative Diagnosis: Macromastia Post-Operative Diagnosis: Same Surgery/Procedure Performed: 1) Breast reduction (bilateral), inferior pedicle with alan pattern skin resection and axillary/lateral chest liposuction (CPT: 19398 x 2 with 50 modifier) 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 18 cc of quarter percent Marcaine with 1 200,000 epinephrine for local block) RN Documented Start/Stop Times: Operation Date: 05/07/25 08:00 Case Time Into Pre-Op 05/07/25 06:36 Anesthesia Start 05/07/25 08:17 Into Room 05/07/25 08:17 Procedure Start 05/07/25 08:57 Procedure End 05/07/25 12:35 Anesthesia End 05/07/25 12:49 Out of Room 05/07/25 12:49 Into Recovery 05/07/25 12:52 Procedure Start Time: 08:57 Procedure Stop Time: 12:35 Select all DRAINS/GRAFTS/IMPLANTS that apply: None Estimated Blood Loss: 200 cc Specimen collected: Yes Description of specimen(s) removed: Right and Left breast tissue from resection Description of surgery: Indications: Patria Johnson is a delightful 54-year-old female with macromastia. She has neck and back pain as well as shoulder grooving from the large breasts. She presentstoday for breast reduction. She understands the risk benefits and alternatives to the procedure. Procedure details: Patient was marked in preoperative holding and taken back to the operating room where she was administered general anesthesia and the above-noted local and tumescent. He was given time to take effect. She was prepped and draped in sterile fashion all proper timeouts were performed per protocol. A 10 blade scalpel was used to excise the Alan pattern juares on the left breast without committing to the superior nipple position. The inferior pedicle was then incised which was 10 cm wide. Bovie electrocautery was taken down to the chest through the breast tissue to develop the inferior pedicle.Dissection wasthen carried out above the fascia of the pectoralis muscle to nearly the level of theclavicle. The anticipated wedge resections medially and laterally were excised full-thickness with the Bovie electrocautery and the medial and lateral and superior aspects of the Alan pattern flap was then dissected along the levelof the breast parenchyma with Bovie electrocautery. The tissue was then groupedtogether and weighed and was 528 g. The same procedure was performed on the right side with a 554 g removal. 150 cc was then aspirated from the bilateral axilla/lateral chest wall for further resection of tissue and to improve contour. Hemostasis obtained with Bovie electrocautery and thecavity was washed out with copious months normal saline. The flaps were then tacked into place withstaples and the patient was sat up. Following confirmation of adequate symmetry and reduction volume, we confirmed the nipple position that had been marked preoperatively and checked the nipple for viability. Both nipples were warm and well-perfused with less than 2-second capillary refill. We therefore excised the keyhole full-thickness so as to provide a position for the nipple (this was included in the above-noted weights). The cavity was irrigated with copious amounts normal saline and Irrisept. 19 Macedonian Fabian drains were tunneled out laterally. Hemostasis was confirmed with Bovie electrocautery. The Alan pattern flaps and the nipples were then inset with 3-0Monocryl deep sutures. The nipple was further inset with 4-0 Monocryl running subcuticular sutures. Insorb was then used for the horizontal and vertical limbsfor additional closure. 3-0 Monocryl running subcuticular sutures were then placed for the vertical and horizontal limbs as well as pernio tape/Dermabond. Steri-Strips were placed around the nipple. The nipples were warm and viable atthe end of the case. Patient was awakened taken the PACU in stable condition. ABDs and a surgical bra were applied. She tolerated the procedure well. Postoperative plan: Admit overnight for postoperative monitoring. Anticipate discharge in the morning Surgical Findings: Left breast: 528 g removed from resection, 175 cc of Lipo aspirate removed Right breast: 554 g removed from resection, 175 cc of Lipo aspirate removed Complications Complications: No Admit VTE Documentation VTE Mechan Device Prophylaxis: SCD's 05/07/25 6928 Cosigner Signature (if applicable): CC: Dr. Yannick Bourne MD; Clemencia Guadalupe DO~ Signed [place]07-09-2025 Consult note [facility] Medical Records Department [address] [place] [address] Anesthesia Postop Eval II 05/07/25 1344 MR#: [id number] Acct: [id number] Name: PATRIA JOHNSON Rep #:[id number] : 1970 54 From: Desean Ronquillo PCP: Clemencia Guadalupe DO Status:ADM GALILEA Y Race: C Location: [place] [address] Anesthesia Postop Eval I Sum Postop Eval Completion status Anesthesia document: Postop Eval 1 completed: Yes Anesthesia Postop Eval I Summary Anesthesia Postop Eval I Summary: Anesthesia Postop Eval I: Assessment Summary Airway patent Yes 05/07/25 12:58 [email or web address] Spontaneous unlabored Yes 05/07/25 12:58 [email or web address] [email or web address] respirations Mental status Awake,Calm 05/07/25 12:58 [email or web address] nausea No 05/07/25 12:58 [email or web address] Vomiting No 05/07/25 12:58 [email or web address] Anesthesia Postop Eval I: Fluid Summary Crystalloid volume administer 2,100 05/07/25 12:58 [email or web address] (ml) Colloids volume administered ( ml) Blood Product volume administered (ml) Total IV fluid infused 2,100 05/07/25 12:58 [email or web address] Anesthesia Postop Eval I: Summary Notes Anesthesia Complication No 05/07/25 12:58 [email or web address] Anesthesia Complication Comment: Post-operative progress note Anesthesia: Postop Eval II Evaluation Mental status: Awake and Calm Pain Level: 1 nausea: No Vomiting: No Complications Anesthesia Complication: No 05/07/25 1345 MD> Date _ Desean Bateman MD Cosigner Signature: CC: ~ Signed [place]07-09-2025 Consult note [facility] Medical Records Department [address] [place] [address] Anesthesia Postop Eval I 05/07/25 1257 MR#: [id number] Acct: [id number] Name: PATRIA JOHNSON Rep #:[id number] : 1970 54 From: Iris HALLMAN PCP: Clemencia Guadalupe DO Status:REG [facility] Y Race: C Location: [place] [address] Anesthesia: Postop Eval I Current Vital Signs Temperature: 97.6 F Pulse Rate: 89 Blood Pressure: 131/81 Respiratory Rate: 16 Pulse Ox: 99 Oxygen Delivery Method: Simple Mask Oxygen Flow Rate (L/min): 6 Assessment Airway patent: Yes Spontaneous unlabored respirations: Yes Mental status: Awake and Calm nausea: No Vomiting: No Anesthesia Complication: No Fluid Hydration Crystalloid volume administer (ml): 2,100 Total IV fluid infused: 2,100 Progress Note Anesthesia document: Postop Eval 1 completed: Yes 05/07/25 1258 SUMMER BABYSITTER> Date _ Iris Berg SUMMER BABYSITTER Cosigner Signature: Date CC: ~ Signed [place]07-09-2025 History and physical note Author Yannick Bourne [place] Note Date/Time May 07, 2025 8:06a m [facility] Medical Records Department [address] [place] [address] H&P Exam - Surgical 05/07/25 0702 MR#: [id number] Acct: [id number] Name: PATRIA JOHNSON Rep #:[id number] : 1970 54 From: Yannick Bourne MD PCP: Clemencia Guadalupe DO Status:REG [facility] Location: [place] [address] HPI - General HPI Narrative Breast Reduction Ehsan Johnson is a delightful 54-year-old female with past [...] personal or family history of blood clots orbleeding diatheses. Patient has the following symptoms of macromastia: Shoulder Pain Shoulder Grooves? Upper back pain Poor Posture Headaches ? ? Physical therapy for back pain: No ? Chiropractic treatment: No ? Home exercise: Yes ? NSAID use: From time to time ? Skin ulceration: No ? Topical or oral antifungal agents: No ? Participation in medically supervised weight loss program: Takes Mounjaro for her diabetes. She has been stable weight for over 6 months. She previously wason Ozempic where she lost 30 lbs but it caused her to start to have some memoryissues so she was switched to Mounjaro. She regained her weight on the Monujarobut her blood sugars have improved. HgA1C is 6.0. ? More info: HTN controlled with BP meds. No clotting issues. No family clottingissues. She is diabetic. A1C 6.0. She neck and back pain and headaches from her breasts. She has hyperhidrosis and sweats a lot. ? Prior breast surgeries: No PAIN: out of aching pain of upper back ? BRA SIZE: 42 DDD ? DESIRED? SIZE: B ? OB HISTORY: PARA: 1 :? No PLAN FOR FUTURE PREGNANCIES: None ? HISTORY OF BREAST DISEASE: No PRIOR MAMMOGRAM: [...] surgery, including the risks, benefits, and alternatives for informed consent. She was given an extensive hand out with information about the surgery. We also discussed the results of the mammography (BI-RADS 1) with plan for yearly screening at 12-month intervals. Current Encounter (DATE OF SURGERY H&P UPDATE): I saw and examined the patient this morning in pre-operative holding. We discussed risks and benefits of today's surgery and they would like to proceed. NO CHANGE in health history since last seen and evaluated except had a viral URI a couple of weeks ago that has resolved. Ready to proceed with surgery. [facility] Medical History Depression Anxiety Diabetes Arthritis Anemia Easy bruising History of diverticulitis History of IBS Non-smoker Shortness of breath on exertion Contraceptive management GERD (gastroesophageal reflux disease) Vitamin D deficiency Hyperhidrosis Hypertension Home Medications ?Medication ?Instructions ?Recorded ?Last Taken ?Type lisinopril 5 mg tablet 5 mg PO QDAY 01/16/18 18:00 History potassium chloride 10 mEq 10 meq PO QDAY 01/16/1806/23 18:00 History tablet,extended release (Klor-Con) fluoxetine 40 mg capsule (Prozac) 40 mg PO DAILY 01/0605/06/25 16:00 History levonorgestrel 20.4 mcg/24 hr (up 1 device intrauterin e ONCE 01/06/22 Unknown History to 8 yrs) 52 mg intrauterine device (Liletta) bupropion HCl 150 mg 24 hr tablet, 150 mg PO QDAY 12/0105/06/25 06:00 History extended release tirzepatide 2.5 mg/0.5 mL 2.5 mg subcut FR 12/26/24 History subcutaneous pen injector (Mounkalinro) lansoprazole 15 mg capsule,delayed 15 mg PO DAILY 12/2405/06/25 18:00 History release (Prevacid 24Hr) valacyclovir 500 mg tablet 500 mg PO BID PRN cold sore s 03/31/25 Unknown History (Valtrex) hyoscyamine sulfate 0.125 mg tablet 0.125 mg PO Q12H P RN PRN dyspepsia 05/05/25 05/06/25 18:00 History clindamycin HCl 150 mg capsule 150 mg PO TID 5 days #1 5 caps 05/07/25 Unknown Rx (Cleocin HCl) ondansetron 4 mg disintegrating 4 mg PO Q8H PRN nausea and 05/07/25 Unknown Rx tablet vomiting #10 tabs oxycodone 5 mg tablet 5 mg PO Q4H PRN pain 5 days #20 05/07/25 Unknown Rx tabs Allergy/AdvReac Type Severity Reaction Status Date / Time erythromycin base Allergy Anaphylaxis Verified 05/07/25 06:56 penicillin V Allergy unknown Verified 05/07/25 06:56 Sulfa (Sulfonamide Allergy Anaphylaxis Verified 05/07/25 06:56 Antibiotics) Family History Mother Hypertension CVA (cerebral vascular accident) Father Hypertension Surgical History Hx of LASIK S/P cholecystectomy H/O: Social History Smoking Status: Never smoker alcohol intake: never substance use type: does not use caffeine: Yes what type of physical activity do you participate in: none seatbelt use: always do you feel safe at home: Yes 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 No palpable hernias Breast Exam: Asymmetry: Yes Masses: none Axillary Lymphadenopathy: None on either side Note: measurements are in centimeters SN to NIPPLE:? R: 35 ? ? L: 36 WIDTH: ? R: 21 ? ? L: 20 MIDLINE to NIPPLE: R: 15? ? L: 15 IMF to NIPPLE: ? R: 10? ? L: 10 PTOSIS: ? R: Grade 3 ? ? L: Grade 3 Const General: cooperative and well developed [facility] Head: normocephalic Eyes General: appearance normal, both eyes and all related structures Results Lab / Micro Data 04/01/25 13:20 04/01/25 13:20 Labs: Laboratory Results - last 24 hr 05/07/25 06:30: Urine Test Negative Assessment & Plan Assessment/Plan (1) Macromastia: PLAN: Photos obtained We have ordered a screening mammogram and patient in agreement I talked the patient extensively about the risks of surgery, including bleeding,asymmetry (we discussed existing asymmetries), nipple loss, need for free nipplegrafts, infection, damage to surrounding structures, surgical site dehiscence and wound formation, need for wound care, need for repeat operations, failure toobtain the desired result, DVT/PE, and the risks of anesthesia including , including stroke (from low blood pressure/ischemia or clot). The benefits andalternatives of this surgery were also discussed. All of their questions were answered, and they agreed to proceed with surgery. Plan According to Schnur scale I could remove 750 gm per side. I would plan superior medial pedicle v Inferior pedicle with Alan pattern skin reduction Caprini score is 4 (As long as she would stop taking contraceptive 4 weeks before surgery, otherwise it is 5) Plan to submit to insurance for surgery as she meets the criteria for macromastia Plan from 27 Feb 2025: Mammogram up-to-date, BI-RADS 1. Patient would like to go forward with breast reduction. I talked to the patient extensively about the risks of surgery, including bleeding, infection, damage to surrounding structures, poor scaring, nipple necrosis, possible need for free nipple grafts, alterations in nipple sensation (possibly permanent), nipple inversion, surgical site dehiscence and wound formation, fat necrosis, fluid collections, need for wound care, need for repeatoperations, failure to obtain the desired result, DVT/PE, and the risks of anesthesia including , including stroke (from low blood pressure/ischemia or clot). The benefits and alternatives of this surgery were also discussed. All of their questions were answered, and they agreed to proceed with surgery. INTERVAL H&P PLAN, DATE OF SURGERY: We will proceed with surgery today. We further discussed again the above-noted risks, benefits and alteratives. She would like to proceed. Plan superior medial pedicle v Inferior Pedicle with alan pattern skin reduction, possible free nipple grafts 05/07/25 0806 <Electronically signed by Yannick Bourne MD> Cosigner Signature (if applicable): CC: Dr. Yannick Bourne MD; Clemencia Guadalupe DO~ Signed [place] Work Phone: 1(420) 129-799507-09-2025 Consult note Author Desean Bateman [place] Note Date/Time May 07, 2025 7:53a m [facility] Medical Records Department [address] [place] [address] Pre-Anesthesia Evaluation 05/07/25 0741 MR#: [id number] Acct: [id number] Name: PATRIA JOHNSON Rep #:[id number] : 1970 54 From: Desean Ronquillo PCP: Clemencia Guadalupe DO Status:REG [facility] Y Race: C Location: [place] [address] ASA Classification* ASA Classification ASA Classification: 3 Assessment & Plan Anesthesia* Anesthesia Assessment Anesthesia Assessment: Discussed sedation and/or anesthesia options, risks, benefits, and alternatives with patient/parents/legal guardian/POA. Questions invited. The patient/parents/legal guardian/POA seems to understand and agrees to proceedwith anesthesia plan. Reviewed the physical assessment, medical history, allergy history and patient home medications list prior to surgery/procedure/anesthetic and documented any changes. Performed airway and anesthesia risk assessments. Anesthesia Type Anesthesia Type: General History Source History Obtained from:: Patient and Chart Anesthesia Focused Assessment* Temperature: 98.1 F Pulse Rate: 88 Blood Pressure: 129/85 Respiratory Rate: 18 Pulse Ox: 95 Oxygen Delivery Method: Room Air Airway Assessment Mouth opens: >3 cm Mallampati Score: II Teeth Condition: Intact Neck Range of motion (ROM): Full ROM Labs Anesthesia Preop lab: CBC WBC 8.3 K/mm3 (4.4-11.0) 04/01/25 13:20 04/01/25 RBC 4.70 M/mm3 (4.2-5.4) 04/01/25 13:20 04/01/25 Hgb 14.1 g/dL (12.0-15.0) 04/01/25 13:20 04/01/25 Hct 40.0 % (37-47) 04/01/25 13:20 04/01/25 Plt Count 301 K/mm3 (150-450) 04/01/25 13:20 04/01/25 CHEMISTRY Potassium 3.7 mmol/L (3.3-5.1) 04/01/25 13:20 04/01/25 Sodium 139 mmol/L (133-145) 04/01/25 13:20 04/01/25 BUN 14 mg/dL (4-19) 04/01/25 13:20 04/01/25 Creatinine 0.92 mg/dL (0.70-1.20) 04/01/25 13:20 04/01/25 Glucose 103 mg/dL (70-99) H 04/01/25 13:20 04/01/25 TSH 0.751 uIU/mL (0.358-3.740) 08/07/24 11:02 10/0 07/23 COAG PT 13.3 SECONDS (11.7-14.9) 04/01/25 13:20 Urine Test Negative Negative 05/07/25 06:30 05/07/25 Pre-Assessment Diagnosis/Proposed Procedure Planned Operative Procedure(s): (B) Breast reduction with possible free nipple grafting Anesthesia History 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 When Was Last Pacemaker Check QUESTION #4 FULL TEXT: You/Your Family Experience fever (hyperthermia) with Anesthesia Last Oral Intake Last Oral intake: Last Oral Intake NPO since 20:00 05/07/25 06:50 Meds taken in AM with sips of No 05/07/25 06:50 water? Meds patient instructed to take am of surgery PONV PONV - vault keeper: PONV - vault keeper Female Yes 05/05/25 09:35 HX of Motion Sickness Yes 05/05/25 09:35 HX of N/V After Surgery No 05/05/25 09:35 Non-Smoker Yes 05/05/25 09:35 Duration of Surgery greater Yes 05/05/25 09:35 than 60 minutes Number of Risk Factors 4 05/05/25 09:35 PONV Score Severe Risk 05/05/25 09:35 Height & Weight Height & Weight: Anesthesia: Height & Weight Height 5 ft 4 in 05/07/25 06:50 Weight: 108 kg 05/07/25 06:50 Body Mass Index (BMI) 40.8 05/07/25 06:50 Respiratory Assessment Respiratory Assessment - vault keeper: Respiratory Tract Infection Hx - vault keeper Hx Respiratory Tract Infection No 05/05/25 09:35 STOP Sleep Apnea STOP Sleep Apnea - vault keeper: STOP Sleep Apnea - vault keeper Hx Hypertension Yes: on meds 05/05/25 09:35 Hx Sleep Apnea No 05/05/25 09:35 CPAP BIPAP Do you snore loudly (louder No 05/05/25 09:35 than talking or can be heard Do you often feel tired/ No 05/05/25 09:35 fatigued/ sleepy during daytime? Has anyone observed you stop No 05/05/25 09:35 breathing during sleep? STOP Results Negative 05/05/25 09:35 QUESTION #5 FULL TEXT : Do you snore loudly (louder than talking or can be heard through closed doors)? 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 Specify any problems Hx of Preganancy in last 3 No 05/05/25 09:35 Months Nurse Filling Out Transfusion KIMBERLY 05/05/25 09:35 & Questions: Date: 05/05/25 05/05/25 09:35 Time: 09:35 05/05/25 09:35 Patient unable to answer at this time (ie. confused, unrespo /Reproduction History /Reproductive History - vault keeper: /Reproductive Hx- vault keeper Hx Now No 05/05/25 09:35 Gestational Age (in weeks): EDC: Hx Hx Para Hx Section SAB No 05/05/25 09:35 Active Medications Active Medications: Current Medications Generic Name Dose Route Start Last Admin Trade Name Freq PRN Reason Stop Dose Admin Acetaminophen 650 mg 05/07/25 07:09 Acetaminophen 325 Mg Tablet PO Q6H PRN PRN Pain Score 1-10 Bupropion HCl 150 mg 05/07/25 07:15 Bupropion (Xl) 150 Mg Tablet.Xl PO QDAY [facility] Lidocaine HCl 50 ml/ 0 ml 05/07/25 08:00 Epinephrine HCl 1 mg/ Lactated OPERA.SITE 05/07/25 08:01 Ringer's 949 ml X1 ONE Enoxaparin Sodium 40 mg 05/08/25 10:00 Enoxaparin 40 Mg/0.4 Ml Syringe SC DAILY [facility] Fluoxetine HCl 40 mg 05/07/25 10:00 Fluoxetine Hcl 40 Mg Capsule PO DAILY [facility] Clindamycin Phosphate 900 mg in 50 mls @ 75 mls/hr 05/07/25 08:00 Cleocin IV 05/07/25 08:39 INTRAOP ONE Lactated Ringer's 1,000 mls @ 15 mls/hr 05/07/25 06:45 05/07/25 06:55 IV 15 mls/hr .Q48H [facility] Administration Lansoprazole 15 mg 05/07/25 10:00 Lansoprazole 15 Mg Capsule.Dr PO DAILY [facility] Ondansetron HCl 4 mg 05/07/25 07:09 Ondansetron 4 Mg/2 Ml Vial IV Q8H PRN PRN NAUSEA/VOMITING Oxycodone HCl 5 - 10 mg 05/07/25 07:09 Oxycodone 5 Mg Tablet PO Q4H PRN PRN Pain Score 4-10 PFSH Medical History Depression Anxiety Diabetes Arthritis Anemia Easy bruising History of diverticulitis History of IBS Non-smoker Shortness of breath on exertion Contraceptive management GERD (gastroesophageal reflux disease) Vitamin D deficiency Hyperhidrosis Hypertension Home Medications ?Medication ?Instructions ?Recorded ?Last Taken ?Type lisinopril 5 mg tablet 5 mg PO QDAY 01/16/18 18:00 History potassium chloride 10 mEq 10 meq PO QDAY 01/16/1806/23 18:00 History tablet,extended release (Klor-Con) fluoxetine 40 mg capsule (Prozac) 40 mg PO DAILY 01/0605/06/25 16:00 History levonorgestrel 20.4 mcg/24 hr (up 1 device intrauterin e ONCE 01/06/22 Unknown History to 8 yrs) 52 mg intrauterine device (Liletta) bupropion HCl 150 mg 24 hr tablet, 150 mg PO QDAY 12/0105/06/25 06:00 History extended release tirzepatide 2.5 mg/0.5 mL 2.5 mg subcut FR 12/26/24 History subcutaneous pen injector (Kimmy) lansoprazole 15 mg capsule,delayed 15 mg PO DAILY 12/2405/06/25 18:00 History release (Prevacid 24Hr) valacyclovir 500 mg tablet 500 mg PO BID PRN cold sore s 03/31/25 Unknown History (Valtrex) hyoscyamine sulfate 0.125 mg tablet 0.125 mg PO Q12H P RN PRN dyspepsia 05/05/25 05/06/25 18:00 History clindamycin HCl 150 mg capsule 150 mg PO TID 5 days #1 5 caps 05/07/25 Unknown Rx (Cleocin HCl) ondansetron 4 mg disintegrating 4 mg PO Q8H PRN nausea and 05/07/25 Unknown Rx tablet vomiting #10 tabs oxycodone 5 mg tablet 5 mg PO Q4H PRN pain 5 days #20 05/07/25 Unknown Rx tabs Allergy/AdvReac Type Severity Reaction Status Date / Time erythromycin base Allergy Anaphylaxis Verified 05/07/25 06:56 penicillin V Allergy unknown Verified 05/07/25 06:56 Sulfa (Sulfonamide Allergy Anaphylaxis Verified 05/07/25 06:56 Antibiotics) Family History Mother Hypertension CVA (cerebral vascular accident) Father Hypertension Surgical History Hx of LASIK S/P cholecystectomy H/O: Social History Smoking Status: Never smoker alcohol intake: never substance use type: does not use caffeine: Yes what type of physical activity do you participate in: none seatbelt use: always do you feel safe at home: Yes 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 05/07/25 0753 <Electronically signed by Desean Bateman MD> Date _ Desean Bateman MD Cosigner Signature: Date CC: ~ Signed [place] Work Phone: 1(652) 409-767107-09-2025 Evaluation note* Diagnosis Onset Date Resolution Status Admit Date Macromastia resolved May 07 7:14am Status post breast reduction acute May 12, 2025 3:51pm Status post breast reduction acute May 16, 2025 9:44am Status post breast reduction acute May 23, 2025 9:48am Postoperative wound cellulitis acute May 26, 2025 9:55pm Status post breast reduction acute May 26, 2025 9:55pm Postoperative wound cellulitis acute May 30, 2025 11:23am Status post breast reduction acute May 30, 2025 11:23am Status post breast reduction acute June 05, 2025 11:14am Status post breast reduction acute June 13, 2025 10:49am Status post breast reduction acute June 20, 2025 10:28am Status post breast reduction acute July 11, 2025 11:04am [facility] Work Phone: [phone]) 174-901707-09-2025 Evaluation note* Diagnosis Onset Date Resolution Status Admit Date Macromastia resolved May 07 7:14am Status post breast reduction acute May 12, 2025 3:51pm Status post breast reduction acute May 16, 2025 9:44am Status post breast reduction acute May 23, 2025 9:48am Postoperative wound cellulitis acute May 26, 2025 9:55pm Status post breast reduction acute May 26, 2025 9:55pm Postoperative wound cellulitis acute May 30, 2025 11:23am Status post breast reduction acute May 30, 2025 11:23am Status post breast reduction acute June 05, 2025 11:14am Status post breast reduction acute June 13, 2025 10:49am Status post breast reduction acute June 20, 2025 10:28am Status post breast reduction acute July 11, 2025 11:04am Pyoderma gangrenosum acute Jun 11:06am Status post breast reduction acute July 24, 2025 11:06am [facility] Work Phone: 1(153) 671-312607-09-2025 History and physical note [facility] Medical Records Department [address] [place] [address] H&P Exam - Surgical 05/07/25 0702 MR#: [id number] Acct: [id number] Name: PATRIA JOHNSON Rep #:[id number] : 1970 54 From: Yannick Bourne MD PCP: Clemencia Guadalupe DO Status:REG [facility] Location: [place] [address] HPI - General HPI Narrative Breast Reduction Ehsan Johnson is a delightful 54-year-old female with past medical history of macromastia and subsequent back pain presenting today for breast reduction consultation. She reports difficulty exercising because of the pain from her large breasts. She has shoulder grooving from the bra strap. She never breast- fed (was unable to) and is not having children (had 1 child through section). She isnot a smoker. No personal or family history of blood clots orbleeding diatheses. Patient has the following symptoms of macromastia: Shoulder Pain Shoulder Grooves? Upper back pain Poor Posture Headaches ? ? Physical therapy for back pain: No ? Chiropractic treatment: No ? Home exercise: Yes ? NSAID use: From time to time ? Skin ulceration: No ? Topical or oral antifungal agents: No ? Participation in medically supervised weight loss program: Takes Mounjaro for her diabetes. She has been stable weight for over 6 months. She previously wason Ozempic where she lost 30 lbs but it caused her to start to have some memoryissues so she was switched to Mounjaro. She regained her weight on the Monujarobut her blood sugars have improved. HgA1C is 6.0. ? More info: HTN controlled with BP meds. No clotting issues. No family clottingissues. She is diabetic. A1C 6.0. She neck and back pain and headaches from her breasts. She has hyperhidrosis and sweats a lot. ? Prior breast surgeries: No PAIN: out of aching pain of upper back ? BRA SIZE: 42 DDD ? DESIRED? SIZE: B ? OB HISTORY: PARA: 1 :? No PLAN FOR FUTURE PREGNANCIES: None ? HISTORY OF BREAST DISEASE: No PRIOR MAMMOGRAM: Yes but it has been 2 years. FAMILY HISTORY OF BREAST CANCER: No CURRENT ENCOUNTER, 27 Feb 2025: Doing well overall. Breast reduction was approved by insurance. She has a negative mammogram (December2024). She would like to proceed with surgery. We are here to discuss postoperative plans/protocol as well as the surgery, including the risks, benefits, and alternatives for informed consent. She was given an extensive hand out with information about the surgery. We also discussed the results of the mammography (BI-RADS 1) with plan for yearly screening at 12- month intervals. Current Encounter (DATE OF SURGERY H&P UPDATE): I saw and examined the patient this morning in pre-operative holding. We discussed risks and benefits of today's surgery and they would like to proceed. NO CHANGE in health history since last seen and evaluated except had a viral URI a couple of weeks ago that has resolved. Ready to proceed with surgery. [facility] Medical History Depression Anxiety Diabetes Arthritis Anemia Easy bruising History of diverticulitis History of IBS Non-smoker Shortness of breath on exertion Contraceptive management GERD (gastroesophageal reflux disease) Vitamin D deficiency Hyperhidrosis Hypertension Home Medications ?Medication ?Instructions ?Recorded ?Last Taken ?Type lisinopril 5 mg tablet 5 mg PO QDAY 01/16/18 18:00 History potassium chloride 10 mEq 10 meq PO QDAY 01/16/1806/23 18:00 History tablet,extended release (Klor-Con) fluoxetine 40 mg capsule (Prozac) 40 mg PO DAILY 01/0605/06/25 16:00 History levonorgestrel 20.4 mcg/24 hr (up 1 device intrauterin e ONCE 01/06/22 Unknown History to 8 yrs) 52 mg intrauterine device (Liletta) bupropion HCl 150 mg 24 hr tablet, 150 mg PO QDAY 12/0105/06/25 06:00 History extended release tirzepatide 2.5 mg/0.5 mL 2.5 mg subcut FR 12/26/24 History subcutaneous pen injector (Mounjaro) lansoprazole 15 mg capsule,delayed 15 mg PO DAILY 12/2405/06/25 18:00 History release (Prevacid 24Hr) valacyclovir 500 mg tablet 500 mg PO BID PRN cold sore s 03/31/25 Unknown History (Valtrex) hyoscyamine sulfate 0.125 mg tablet 0.125 mg PO Q12H P RN PRN dyspepsia 05/05/25 05/06/25 18:00 History clindamycin HCl 150 mg capsule 150 mg PO TID 5 days #1 5 caps 05/07/25 Unknown Rx (Cleocin HCl) ondansetron 4 mg disintegrating 4 mg PO Q8H PRN nausea and 05/07/25 Unknown Rx tablet vomiting #10 tabs oxycodone 5 mg tablet 5 mg PO Q4H PRN pain 5 days #20 05/07/25 Unknown Rx tabs Allergy/AdvReac Type Severity Reaction Status Date / Time erythromycin base Allergy Anaphylaxis Verified 05/07/25 06:56 penicillin V Allergy unknown Verified 05/07/25 06:56 Sulfa (Sulfonamide Allergy Anaphylaxis Verified 05/07/25 06:56 Antibiotics) Family History Mother Hypertension CVA (cerebral vascular accident) Father Hypertension Surgical History Hx of LASIK S/P cholecystectomy H/O: Social History Smoking Status: Never smoker alcohol intake: never substance use type: does not use caffeine: Yes what type of physical activity do you participate in: none seatbelt use: always do you feel safe at home: Yes 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 No palpable hernias Breast Exam: Asymmetry: Yes Masses: none Axillary Lymphadenopathy: None on either side Note: measurements are in centimeters SN to NIPPLE:? R: 35 ? ? L: 36 WIDTH: ? R: 21 ? ? L: 20 MIDLINE to NIPPLE: R: 15? ? L: 15 IMF to NIPPLE: ? R: 10? ? L: 10 PTOSIS: ? R: Grade 3 ? ? L: Grade 3 Const General: cooperative and well developed [facility] Head: normocephalic Eyes General: appearance normal, both eyes and all related structures Results Lab / Micro Data 04/01/25 13:20 04/01/25 13:20 Labs: Laboratory Results - last 24 hr 05/07/25 06:30: Urine Test Negative Assessment & Plan Assessment/Plan (1) Macromastia: PLAN: Photos obtained We have ordered a screening mammogram and patient in agreement I talked the patient extensively about the risks of surgery, including bleeding,asymmetry (we discussed existing asymmetries), nipple loss, need for free nipplegrafts, infection, damage to surrounding structures, surgical site dehiscence and wound formation, need for wound care, need for repeat operations, failure toobtain the desired result, DVT/PE, and the risks of anesthesia including , including stroke (from low blood pressure/ischemia or clot). The benefits andalternatives of this surgery were also discussed. All of their questions were answered, and they agreed to proceed with surgery. Plan According to Schnur scale I could remove 750 gm per side. I would plan superior medial pedicle v Inferior pedicle with Alan pattern skin reduction Caprini score is 4 (As long as she would stop taking contraceptive 4 weeks before surgery, otherwise it is 5) Plan to submit to insurance for surgery as she meets the criteria for macromastia Plan from 27 Feb 2025: Mammogram up-to-date, BI-RADS 1. Patient would like to go forward with breast reduction. I talked to the patient extensively about the risks of surgery, including bleeding, infection, damage to surrounding structures, poor scaring, nipple necrosis, possible need for free nipple grafts, alterations in nipple sensation (possibly permanent), nipple inversion, surgical site dehiscence and wound formation, fat necrosis, fluid collections, need for wound care, need for repeatoperations, failure to obtain the desired result, DVT/PE, and the risks of anesthesia including , including stroke (from low blood pressure/ischemia or clot). The benefits and alternatives of this surgery werealso discussed. All of their questions were answered, and they agreed to proceed with surgery. INTERVAL H&P PLAN, DATE OF SURGERY: We will proceed with surgery today. We further discussed again the above-noted risks, benefits and alteratives. She would like to proceed. Plan superior medial pedicle v Inferior Pedicle with alan pattern skin reduction, possible free nipple grafts 05/07/25 0806 Cosigner Signature (if applicable): CC: Dr. Yannick Bourne MD; Clemencia Guadalupe DO~ Signed [place]07-09-2025 Consult note [facility] Medical Records Department [address] [place] [address] Pre-Anesthesia Evaluation 05/07/25 0741 MR#: [id number] Acct: [id number] Name: PATRIA JOHNSON Rep #:[id number] : 1970 54 From: Desean Ronquillo PCP: Clemencia Guadalupe DO Status:REG SD[facility] Y Race: C Location: [place] [address] ASA Classification* ASA Classification ASA Classification: 3 Assessment & Plan Anesthesia* Anesthesia Assessment Anesthesia Assessment: Discussed sedation and/or anesthesia options, risks, benefits, and alternatives with patient/parents/legal guardian/POA. Questions invited. The patient/parents/legal guardian/POA seems to understand and agrees to proceedwith anesthesia plan. Reviewed the physical assessment, medical history, allergy history and patient home medications list prior to surgery/procedure/anesthetic and documented any changes. Performed airway and anesthesia risk assessments. Anesthesia Type Anesthesia Type: General History Source History Obtained from:: Patient and Chart Anesthesia Focused Assessment* Temperature: 98.1 F Pulse Rate: 88 Blood Pressure: 129/85 Respiratory Rate: 18 Pulse Ox: 95 Oxygen Delivery Method: Room Air Airway Assessment Mouth opens: >3 cm Mallampati Score: II Teeth Condition: Intact Neck Range of motion (ROM): Full ROM Labs Anesthesia Preop lab: CBC WBC 8.3 K/mm3 (4.4-11.0) 04/01/25 13:20 04/01/25 RBC 4.70 M/mm3 (4.2-5.4) 04/01/25 13:20 04/01/25 Hgb 14.1 g/dL (12.0-15.0) 04/01/25 13:20 04/01/25 Hct 40.0 % (37-47) 04/01/25 13:20 04/01/25 Plt Count 301 K/mm3 (150-450) 04/01/25 13:20 04/01/25 CHEMISTRY Potassium 3.7 mmol/L (3.3-5.1) 04/01/25 13:20 04/01/25 Sodium 139 mmol/L (133-145) 04/01/25 13:20 04/01/25 BUN 14 mg/dL (4-19) 04/01/25 13:20 04/01/25 Creatinine 0.92 mg/dL (0.70-1.20) 04/01/25 13:20 04/01/25 Glucose 103 mg/dL (70-99) H 04/01/25 13:20 04/01/25 TSH 0.751 uIU/mL (0.358-3.740) 08/07/24 11:02 07/23 COAG PT 13.3 SECONDS (11.7-14.9) 04/01/25 13:20 Urine Test Negative Negative 05/07/25 06:30 05/07/25 Pre-Assessment Diagnosis/Proposed Procedure Planned Operative Procedure(s): (B) Breast reduction with possible free nipple grafting Anesthesia History 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 When Was Last Pacemaker Check QUESTION #4 FULL TEXT: You/Your Family Experience fever (hyperthermia) with Anesthesia Last Oral Intake Last Oral intake: Last Oral Intake NPO since 20:00 05/07/25 06:50 Meds taken in AM with sips of No 05/07/25 06:50 water? Meds patient instructed to take am of surgery PONV PONV - vault keeper: PONV - vault keeper Female Yes 05/05/25 09:35 HX of Motion Sickness Yes 05/05/25 09:35 HX of N/V After Surgery No 05/05/25 09:35 Non-Smoker Yes 05/05/25 09:35 Duration of Surgery greater Yes 05/05/25 09:35 than 60 minutes Number of Risk Factors 4 05/05/25 09:35 PONV Score Severe Risk 05/05/25 09:35 Height & Weight Height & Weight: Anesthesia: Height & Weight Height 5 ft 4 in 05/07/25 06:50 Weight: 108 kg 05/07/25 06:50 Body Mass Index (BMI) 40.8 05/07/25 06:50 Respiratory Assessment Respiratory Assessment - vault keeper: Respiratory Tract Infection Hx - vault keeper Hx Respiratory Tract Infection No 05/05/25 09:35 STOP Sleep Apnea STOP Sleep Apnea - vault keeper: STOP Sleep Apnea - vault keeper Hx Hypertension Yes: on meds 05/05/25 09:35 Hx Sleep Apnea No 05/05/25 09:35 CPAP BIPAP Do you snore loudly (louder No 05/05/25 09:35 than talking or can be heard Do you often feel tired/ No 05/05/25 09:35 fatigued/ sleepy during daytime? Has anyone observed you stop No 05/05/25 09:35 breathing during sleep? STOP Results Negative 05/05/25 09:35 QUESTION #5 FULL TEXT : Do you snore loudly (louder than talking or can be heard through closeddoors)? 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 Specify any problems Hx of Preganancy in last 3 No 05/05/25 09:35 Months Nurse Filling Out Transfusion JZOLLMALKA 05/05/25 09:35 & Questions: Date: 05/05/25 05/05/25 09:35 Time: 09:35 05/05/25 09:35 Patient unable to answer at this time (ie. confused, unrespo /Reproduction History /Reproductive History - vault keeper: /Reproductive Hx- vault keeper Hx Now No 05/05/25 09:35 Gestational Age (in weeks): EDC: Hx Hx Para Hx Section SAB No 05/05/25 09:35 Active Medications Active Medications: Current Medications Generic Name Dose Route Start Last Admin Trade Name Freq PRN Reason Stop Dose Admin Acetaminophen 650 mg 05/07/25 07:09 Acetaminophen 325 Mg Tablet PO Q6H PRN PRN Pain Score 1-10 Bupropion HCl 150 mg 05/07/25 07:15 Bupropion (Xl) 150 Mg Tablet.Xl PO QDAY LANA Lidocaine HCl 50 ml/ 0 ml 05/07/25 08:00 Epinephrine HCl 1 mg/ Lactated OPERA.SITE 05/07/25 08:01 Ringer's 949 ml X1 ONE Enoxaparin Sodium 40 mg 05/08/25 10:00 Enoxaparin 40 Mg/0.4 Ml Syringe SC DAILY LANA Fluoxetine HCl 40 mg 05/07/25 10:00 Fluoxetine Hcl 40 Mg Capsule PO DAILY LANA Clindamycin Phosphate 900 mg in 50 mls @ 75 mls/hr 05/07/25 08:00 Cleocin IV 05/07/25 08:39 INTRAOP ONE Lactated Ringer's 1,000 mls @ 15 mls/hr 05/07/25 06:45 05/07/25 06:55 IV 15 mls/hr .Q48H LANA Administration Lansoprazole 15 mg 05/07/25 10:00 Lansoprazole 15 Mg Capsule. PO DAILY LANA Ondansetron HCl 4 mg 05/07/25 07:09 Ondansetron 4 Mg/2 Ml Vial IV Q8H PRN PRN NAUSEA/VOMITING Oxycodone HCl 5 - 10 mg 05/07/25 07:09 Oxycodone 5 Mg Tablet PO Q4H PRN PRN Pain Score 4-10 PFSH Medical History Depression Anxiety Diabetes Arthritis Anemia Easy bruising History of diverticulitis History of IBS Non-smoker Shortness of breath on exertion Contraceptive management GERD (gastroesophageal reflux disease) Vitamin D deficiency Hyperhidrosis Hypertension Home Medications ?Medication ?Instructions ?Recorded ?Last Taken ?Type lisinopril 5 mg tablet 5 mg PO QDAY 01/16/18 18:00 History potassium chloride 10 mEq 10 meq PO QDAY 01/16/18 07/06/23 18:00 History tablet,extended release (Klor-Con) fluoxetine 40 mg capsule (Prozac) 40 mg PO DAILY 01/0605/06/25 16:00 History levonorgestrel 20.4 mcg/24 hr (up 1 device intrauterin e ONCE 01/06/22 Unknown History to 8 yrs) 52 mg intrauterine device (Liletta) bupropion HCl 150 mg 24 hr tablet, 150 mg PO QDAY 12/0105/06/25 06:00 History extended release tirzepatide 2.5 mg/0.5 mL 2.5 mg subcut FR 12/26/24 History subcutaneous pen injector (Mounjaro) lansoprazole 15 mg capsule,delayed 15 mg PO DAILY 12/2405/06/25 18:00 History release (Prevacid 24Hr) valacyclovir 500 mg tablet 500 mg PO BID PRN cold sore s 03/31/25 Unknown History (Valtrex) hyoscyamine sulfate 0.125 mg tablet 0.125 mg PO Q12H P RN PRN dyspepsia 05/05/25 05/06/25 18:00 History clindamycin HCl 150 mg capsule 150 mg PO TID 5 days #1 5 caps 05/07/25 Unknown Rx (Cleocin HCl) ondansetron 4 mg disintegrating 4 mg PO Q8H PRN nausea and 05/07/25 Unknown Rx tablet vomiting #10 tabs oxycodone 5 mg tablet 5 mg PO Q4H PRN pain 5 days #20 05/07/25 Unknown Rx tabs Allergy/AdvReac Type Severity Reaction Status Date / Time erythromycin base Allergy Anaphylaxis Verified 05/07/25 06:56 penicillin V Allergy unknown Verified 05/07/25 06:56 Sulfa (Sulfonamide Allergy Anaphylaxis Verified 05/07/25 06:56 Antibiotics) Family History Mother Hypertension CVA (cerebral vascular accident) Father Hypertension Surgical History Hx of LASIK S/P cholecystectomy H/O: Social History Smoking Status: Never smoker alcohol intake: never substance use type: does not use caffeine: Yes what type of physical activity do you participate in: none seatbelt use: always do you feel safe at home: Yes 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 05/07/25 0753 > Date _ Desean Bateman MD Cosigner Signature: Date CC: ~ Signed [place]05-01-2025 Evaluation note* Diagnosis Onset Date Resolution Status Admit Date Macromastia acute February 27, 2025 2:37pm Macromastia acute May 07 7:14am [place] Work Phone: 1(338) 564-285105-01-2025 Evaluation note* Diagnosis Onset Date Resolution Status Admit Date Macromastia resolved February 27, 2025 2:37pm Macromastia resolved May 07 7:14am Status post breast reduction acute May 12, 2025 3:51pm [facility] Work Phone: 1([phone]) [phone] Evaluation note* Diagnosis Onset Date Resolution Status Admit Date Macromastia resolved February 27, 2025 2:37pm Macromastia resolved May 07 7:14am Status post breast reduction acute May 12, 2025 3:51pm Status post breast reduction acute May 16, 2025 9:44am [facility] Work Phone: 1([phone]) 907-926105-01-2025 Evaluation note* Diagnosis Onset Date Resolution Status Admit Date Macromastia resolved February 27, 2025 2:37pm Macromastia resolved May 07 7:14am Status post breast reduction acute May 12, 2025 3:51pm Status post breast reduction acute May 16, 2025 9:44am Status post breast reduction acute May 23, 2025 9:48am Postoperative wound cellulitis acute May 26, 2025 9:55pm Status post breast reduction acute May 26, 2025 9:55pm [place] Work Phone: 1(117) 397-559005-01-2025 Evaluation note* Diagnosis Onset Date Resolution Status Admit Date Macromastia resolved February 27, 2025 2:37pm Macromastia resolved May 07 7:14am Status post breast reduction acute May 12, 2025 3:51pm Status post breast reduction acute May 16, 2025 9:44am Status post breast reduction acute May 23, 2025 9:48am Postoperative wound cellulitis acute May 26, 2025 9:55pm Status post breast reduction acute May 26, 2025 9:55pm Postoperative wound cellulitis acute May 30, 2025 11:23am Status post breast reduction acute May 30, 2025 11:23am [facility] Work Phone: 1([phone]) 842-859805-01-2025 Evaluation note* Diagnosis Onset Date Resolution Status Admit Date Macromastia resolved February 27, 2025 2:37pm Macromastia resolved May 07 7:14am Status post breast reduction acute May 12, 2025 3:51pm Status post breast reduction acute May 16, 2025 9:44am Status post breast reduction acute May 23, 2025 9:48am Postoperative wound cellulitis acute May 26, 2025 9:55pm Status post breast reduction acute May 26, 2025 9:55pm Postoperative wound cellulitis acute May 30, 2025 11:23am Status post breast reduction acute May 30, 2025 11:23am Status post breast reduction acute June 05, 2025 11:14am [facility] Work Phone: 1(130) 334-637405-01-2025 Evaluation note* Diagnosis Onset Date Resolution Status Admit Date Macromastia resolved February 27, 2025 2:37pm Macromastia resolved May 07 7:14am Status post breast reduction acute May 12, 2025 3:51pm Status post breast reduction acute May 16, 2025 9:44am Status post breast reduction acute May 23, 2025 9:48am Postoperative wound cellulitis acute May 26, 2025 9:55pm Status post breast reduction acute May 26, 2025 9:55pm Postoperative wound cellulitis acute May 30, 2025 11:23am Status post breast reduction acute May 30, 2025 11:23am Status post breast reduction acute June 05, 2025 11:14am Status post breast reduction acute June 13, 2025 10:49am Status post breast reduction acute June 20, 2025 10:28am [facility] Work Phone: [phone] Evaluation note* Diagnosis Onset Date Resolution Status Admit Date Macromastia acute November 1:38pm [place] Work Phone: [phone] NotePap Smear Specimen AdequacyMarch 2022 5:05pmComment.Satisfactory for evaluation. No endocervical component is identified.[facility] A#[id number]t on above:Satisfactory for evaluation. No endocervical component is identified. 01-18-2023 NotePap Smear Specimen AdequacyMarch 2022 5:05pmComment. Satisfactory for evaluation. No endocervical component is identified.[facility] A#[id number]t on above:Satisfactory for evaluation. No endocervical component is identified.01-18-2023 NotePap Smear Specimen AdequacyMarch 2022 5:05pmComment.Satisfactory for evaluation. No endocervical component is identified.[facility] A#[id number]t on above:Satisfactory for evaluation. No endocervical component is identified.Consult note Author Jossy Acevedo [place] Note Date/Time May 28, 2025 12:2 0pm [facility] Medical Records Department [address] [place] [address] Counseling Note - Pharmacy 05/28/25 1219 MR#: [id number] Acct: [id number] Name: GLORIAPATRIA RIGOBERTO Rep #:[id number] : 1970 54 From: Jossy Acevedo PCP: Clemencia Guadalupe DO Status:ADM IN Y [facility] Counseling Pharmacy Service has performed discharge medication reconciliation and counseling for this patient. 1. CIPROFLOXACIN 500MG PO BID X 7 DAYS 2. DOXYCYCLINE 100MG PO BID X 7 DAYS The patient's discharge medication list was reviewed for discrepancies and discrepancies were resolved. The patient was counseled on the following discharge medications and changes in medications for homegoing were reviewed. The Reason for Use, instructions for use, and potential side effects were reviewed for all new medications. The patient's questions regarding all of their medications were answered. The patient was able to verbally demonstrate an understanding of their dischargemedications. Medications at Discharge Home Medications lisinopril 5 mg tablet 5 mg PO QDAY bp 01/16/18 potassium chloride 10 mEq tablet,extended release (Klor-Con) 10 meq PO QDAY supplement 01/16/18 fluoxetine 40 mg capsule (Prozac) 40 mg PO DAILY mood 01/06/22 levonorgestrel 20.4 mcg/24 hr (up to 8 yrs) 52 mg intrauterine device (Liletta) 1 device intrauterine ONCE child 01/06/22 bupropion HCl 150 mg 24 hr tablet, extended release 150 mg PO QDAY mood 12/26/24 tirzepatide 2.5 mg/0.5 mL subcutaneous pen injector (Mounjaro) 2.5 mg subcut FR weight lose 12/26/24 Held on 05/26/25. Instructions: MD Ordered lansoprazole 15 mg capsule,delayed release (Prevacid 24Hr) 15 mg PO DAILY gerd 03/31/25 valacyclovir 500 mg tablet (Valtrex) 500 mg PO BID PRN cold sores 03/31/25 hyoscyamine sulfate 0.125 mg tablet 0.125 mg PO Q12H PRN PRN dyspepsia 05/05/25 ciprofloxacin HCl 500 mg tablet 500 mg PO Q12H 7 days #14 tabs 05/28/25 doxycycline hyclate 100 mg capsule 100 mg PO BID 7 days #14 caps 05/28/25 05/28/25 1220 <Electronically signed by Jossy Acevedo> Date _ Jossy Acevedo Cosigner Signature (if applicable): Date CC: ~ Signed [place] Work Phone: Evaluation noteNo assessment information available [place] Work Phone: Evaluation note* Diagnosis Onset Date Resolution Status Encounter for routine gynecological examination noneactive [place] Work Phone: Hospital Discharge instructionsAdditional Instructions Operations Performed: Breast reduction Instructions for My Care at Home or Healthcare Facility The following instructions will help you know what to expect in the days following surgery. These are general instructions. Your surgeon and therapist may give you special instructions, which vary to some degree based on your specific procedure -- follow those as directed. Do not, however, hesitate to call if you have any questions or concerns. Splint Care/Dressing Care/Wound Care Dressings - You may have a dressing over the operative site. You can wear the loose bra with the pads for comfort OK to shower with occlusive dressing over the drain on Monday. Do not submerge under water until cleared by Dr. Bourne If the dressing feels too tight after you get home, it is ok to gently pull on the dressing to stretch it out/loosen it. Avoid smoking or other tobacco products. Smoking tobacco impairs wound healing and increases the risks of post-operative complications. Tape over your incisions (if present) will fall off on its own Activities For the first 4 weeks after surgery, try to balance your activity, allowing time for rest. Avoid lifting, pushing, or pulling anything over [address] or operate heavy machinery within 24 hrs of surgery or while taking narcotic pain medication. No pressure/laying on the breasts Drain Care: A drain has been placed during surgery in order to prevent the accumulation of fluids beneath your skin. The drain decreases the chance of infection and helps in the healing process. The nursing staff will instruct you and your family on the care and recording of drainage. You may shower with them. Let soap and water run down over drains, rinse and pat dry with clean towel. Reinforce with gauze or ABD pad around drain site if leaking occurs around the drain; this is not unusual. Hold drains in your hand or attach to lanyard (or string) around your neck with safety pin so they do not hang from your body (the tension on your skin may cause them to be pulled out) while your are showering. The drains are attached to you with suture. If your drain(s) falls out accidentally, place a clean piece of gauze over the drain site with tape and discard your drain. If your drain bulb loses suction or your drain has migrated out from the drain site, do not attempt to push the drain back into your skin. Cover the area with dry gauze. You may be asked by your surgeon to place a piece of semi occlusive dressing (tegaderm) over the drain site to keep the site clean and drain in place until you are seen in the office. When you are wearing clothes, attach drains to your clothes in a place where there is minimal/no tension on the insertion site to your skin. You should empty the drainage and record the output at least 2 times per day, or when the drainage fills the bulb almost custodial. Please keep daily amounts of drainage separate for each drain for a 24-hour period (for example drain #1 put out 40 mL for 24 hours). Strip your drains daily as shown to you by your nurse prior to discharge to avoid them from becoming clogged: Wash your hands. Strip tubing three times a day (more often if there are a lot of blood clots). Grasp tubing close to body with one hand and pull toward body. With other hand grasp tubing below the first hand. Using an alcohol swab, pinch tubing tightly, sliding fingers down tubing, away from body. Repeat 2 or 3 times. Be sure drainage is flowing into bulbs. Measure the drainage in the bulb by either using the calibrations on the bulb or by emptying the Bulb into small measuring container 3 times a day (more often if there is a lot of drainage or they feel heavy) Open small lid on top of bulb. Pour drainage into container. Squeeze bulb and hold while replacing small lid. Bulb should be collapsed to be effective. Pin bulb to clothing so the weight will not pull on the insertion site. Measure drainage and record amount each time you empty the bulbs. Hold container at eye level to read the numbers on the side of the container. Read the numbers in the ml column. Record amount of drainage on chart. Record your drain output daily and bring this record with you to your next follow up appointment. Drains will typically be removed in the clinic when output is less than 30 mL/24 hours per drain over 2 consecutive days. For drain removal appointment, please call your doctors office directly to schedule. Location: Drain #1 Drain #2 Drain #3 Drain #4 AM Noon PM AM Noon PM AM Noon PM AM Noon PM Date: Total (daily) AM Noon PM AM Noon PM AM Noon PM AM Noon PM Date: Total (daily) AM Noon PM AM Noon PM AM Noon PM AM Noon PM Date: Total (daily) AM Noon PM AM Noon PM AM Noon PM AM Noon PM Date: Total (daily) AM Noon PM AM Noon PM AM Noon PM AM Noon PM Date: Total (daily) AM Noon PM AM Noon PM AM Noon PM AM Noon PM Date: Total (daily) AM Noon PM AM Noon PM AM Noon PM AM Noon PM Date: Total (daily) AM Noon PM AM Noon PM AM Noon PM AM Noon PM Date: Total (daily) AM Noon PM AM Noon PM AM Noon PM AM Noon PM Date: Total (daily) AM Noon PM AM Noon PM AM Noon PM AM Noon PM Date: Total (daily) AM Noon PM AM Noon PM AM Noon PM AM Noon PM Date: Total (daily) AM Noon PM AM Noon PM AM Noon PM AM Noon PM Date: Total (daily) AM Noon PM AM Noon PM AM Noon PM AM Noon PM Date: Total (daily) AM Noon PM AM Noon PM AM Noon PM AM Noon PM Date: Total (daily) AM Noon PM AM Noon PM AM Noon PM AM Noon PM Date: Total (daily) Pain Control/Medications If you received an anesthetic block, your hand or arm may be numb for several hours. You will be discharged to home with medications, including an oral pain medication (analgesic). Rest and elevation are still one of the most important factors for pain control. Take your pain medication as needed, but do not wait for the pain to become out of control. For severe pain, you may take prescription pain medication as directed, but please note that this may also contain Tylenol (e.g. Percocet). Do not take more than 4000mg of Tylenol (acetaminophen) from all sources daily. Pain medication may cause some lethargy, nausea, and or constipation. You should not drive/operate dangerous machinery while taking these medications. If these or other symptoms become significantly problematic, please your surgeon's office. If prescribed oral antibiotics (Keflex, Clindamycin, or others), please take prescription for full duration as instructed. You should not have any pills remaining once completed (refills are written for your convenience should the course need to be extended, but generally they are not required). Diet (what I can eat): Resume normal diet Follow up You will be seen (most likely) 1 to 2 weeks after surgery depending on the procedure. Follow-up appointment reminders: (A list of any scheduled appointments is at the end of this document) At your earliest convenience, please call [phone] to confirm/schedule a follow-up appointment with me in clinic. When to call your surgeon: If any signs of surgical site infection develop: redness, pus, pain, increased swelling or foul odor at the incision site, fever, cold and clammy skin, or confusion. Consistent temperature above 101 F (38.3 C). The affected area gets swollen or much more painful. You have excessive bleeding from surgical site (soaking through). If you experience difficulty breathing and/or shortness of breath, seek immediate medical attention. If experiencing any of the above complications or if you have any questions, call [phone] Work Phone: Hospital Discharge instructionsAmbulatory Orders* Dermatology Location: None Selected [facility] Work Phone: Progress note Author Mindy Carmona [facility] Note Date/Time July 24, 2025 11:33am [facility] [address], [address] [place] [address] OFFICE VISIT Date of Service: 07/24/25 MR#: [id number] Acct: [id number] Name: PATRIA JOHNSON Rep #: [id number] : 1970 Provider: BENJIE Mederos Age/Sex: 54/F Location: [facility] Status: Signed Intake Vital Signs 3 07/11/25 11:09 07/24/25 11:28 Height 5 ft 4 in BP 144/98 H 130/86 H Blood Pressure Location Rt brachial Rt brachial Position Sitting Respiration 18 18 Pulse 81 95 Pulse Source Monitor Temp 97.9 F Temp Source Temporal Pulse Oximetry (%) 97 97 Oxygen Delivery Method room air room air Intake Visit Reasons: 2 W FU Chief Complaint: post op breast reduction Is patient in pain?: No Allergies erythromycin base Allergy (Verified 07/24/25 11:27) Anaphylaxis penicillin V Allergy (Verified 07/24/25 11:27) unknown Sulfa (Sulfonamide Antibiotics) Allergy (Verified 07/24/25 11:27) Anaphylaxis Medications 3 ?Medication ?Instructions ?Recorded ?Confirmed ?Type lisinopril 5 mg tablet 5 mg PO QDAY bp 01/16/18 History potassium chloride 10 mEq 10 meq PO QDAY supplement 07/24/25 History tablet,extended release (Klor-Con) fluoxetine 40 mg capsule (Prozac) 40 mg PO DAILY mood 01/06/22 07/24/25 History levonorgestrel 20.4 mcg/24 hr (up 1 device intrauterin e ONCE child 01/06/22 07/24/25 History to 8 yrs) 52 mg intrauterine device (Liletta) bupropion HCl 150 mg 24 hr tablet, 150 mg PO QDAY mood 12/26/24 07/24/25 History extended release tirzepatide 2.5 mg/0.5 mL 2.5 mg subcut FR weight lose 12/26/24 07/24/25 History subcutaneous pen injector (Devenuntom) Held on 05/26/25. Instructions: Ordered lansoprazole 15 mg capsule,delayed 15 mg PO DAILY gerd 03/31/25 07/24/25 History release (Prevacid 24Hr) valacyclovir 500 mg tablet 500 mg PO BID PRN cold sore s 03/31/25 07/24/25 History (Valtrex) hyoscyamine sulfate 0.125 mg tablet 0.125 mg PO Q12H P RN PRN dyspepsia 05/05/25 07/24/25 History doxycycline hyclate 100 mg capsule 100 mg PO BID 7 day s #14 caps 05/28/25 07/24/25 Rx lisinopril 20 mg tablet 20 mg PO QDAY 06/20/2507/24 History potassium chloride 20 mEq 20 meq PO QDAY 06/20/2507/01 History tablet,extended release prednisone 20 mg tablet mg PO 07/11/25 07/24/25 Hist ory Subjective Details: Date of Procedure: 05/07/25 Pre-Operative Diagnosis: Macromastia Post-Operative Diagnosis: Same Surgery/Procedure Performed: 1) Breast reduction (bilateral), inferior pedicle with alan pattern skin resection and axillary/lateral chest liposuction (CPT: 19081 x 2 with 50 modifier) 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 18 cc of quarter percent Marcaine with 1 200,000 epinephrine for local block) RN Documented Start/Stop Times: Ms. Johnson is a 54 year-old female who presents today for routine postop follow up. She is 6 weeks out from bilateral breast reduction on 05/07/[address] Bourne due to macromastia. Her healing was complicated by pyoderma gangrenosum. Initialbiopsy obtained were nonspecific. She was referred to Dr. Pickering for management and received injections and was started on oral prednisone. She has been compliant with activity restrictions. Her left breast wound is more sore than her right. She reports preserved nipple sensation bilaterally. Today's encounter 07/24: She continues to do well and is happy with her results. She is weaned down to prednisone 1 mg daily. Her incisions are healing well. Herpyoderma gangrenosum lesions continue to improve in size and appearance. Objective Details: Per Dr. Bourne's exam and measurements Sternal notch to nipple: Right is 21cm, Left is 22cm Nipple to midline: Right is 11cm, Left is 11cm Nipple to IMF: Right is 10cm, Left is 10cm Left inferior pole breast with improving wound with granulation tissue filling, no drainage. Right anterior vertical breast healing well with granulation tissue filling, no drainage. Coding Level of Care Code Global Post Op Diagnoses Status post breast reduction Z98.890 Pyoderma gangrenosum L88 [facility] Medical History (Updated 07/24/25 @ 13:05 by BENJIE Gaffney) Pyoderma gangrenosum Depression Anxiety Diabetes Arthritis Anemia Easy bruising History of diverticulitis History of IBS Non-smoker Shortness of breath on exertion Contraceptive management GERD (gastroesophageal reflux disease) Vitamin D deficiency Hyperhidrosis Hypertension Surgical History Hx of LASIK S/P cholecystectomy H/O: Family History Mother Hypertension CVA (cerebral vascular accident) Father Hypertension Social History household members: spouse housing: house Smoking Status: Never smoker alcohol intake: never substance use type: does not use caffeine: Yes what type of physical activity do you participate in: none seatbelt use: always do you feel safe at home: Yes 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, DENIES EDIBLES, DENIES MARIJUANA USE, NO FAMILY HISTORY OF BLOOD CLOTS Assessment and Plan (No Qualifiers) Assessment and Plan (1) Status post breast reduction: Status: Acute (2) Pyoderma gangrenosum: Status: Acute Plan Dr. Bourne evaluated the patient as well and agrees with plan. Continue pyoderma gangrenosum management with oral steroid taper per Dr. Pickering Continue wet to dry dressing twice daily. Follow up in 3 weeks for wound check 07/24/25 1314 <Electronically signed by Kristine WALDROP > Date _ Kristine WALDROP Cosigner Signature: Date (if applicable) CC: ~ [facility] Work Phone: Reason for referral (narrative)No reason for referral information availableWCommunity [facility] Work Phone: Summary Purpose Family History No Family History Records Found Relationship Condition Age at Onset Recorded Date/T sonny mother Hypertension Unknown Cerebrovascular accident (CVA) Unknown father Hypertension Unknown Advance Directives No Advanced Directives Records Found Advance Directive Response Recorded Date/ Time Do you have a Healthcare Power of Paperback Machine Operator? No May 05, 2025 9:35am Advance Directive Response Recorded Date/ Time Do you have a Healthcare Power of Paperback Machine Operator? No May 05, 2025 9:35am Do you have a Healthcare Power of Paperback Machine Operator? No May 26, 2025 9:17pm Advance Directive Response Recorded Date/ Time Do you have a Healthcare Power of Paperback Machine Operator? No May 05, 2025 9:35am Do you have a Healthcare Power of Paperback Machine Operator? No May 26, 2025 11:40pm Chief Complaint and Reason for Visit Chief Complaint R68.83 Annual (TRUSTEE OF ESTATE) Chief Complaint Annual (TRUSTEE OF ESTATE) Reason for Visit Encounter for routin e gynecological examination Chief Complaint Annual (TRUSTEE OF ESTATE) INT LABS Reason for Visit Encounter for routin e gynecological examination Chief Complaint Annual (TRUSTEE OF ESTATE) INT LABS EORDER Reason for Visit Encounter for routin e gynecological examination Chief Complaint Admit Date BREAST REDUCTION December 26, 2024 1:38pm SCREENING January 13, 2025 3:2 0pm Reason for Visit Admit Date Macromastia December 26, 2024 1:38pm Chief Complaint Admit Date SCREENING January 13, 2025 3:2 0pm pre op breast reduction February 27, 2025 2: 37pm PREOP April 01, 2025 1:14p m Breast reduction with possible free May 07, 2025 7:02am Breast reduction with possible free May 07, 2025 7:14am Breast reduction with possible free May 08, 2025 7:10am Reason for Visit Admit Date Macromastia February 27, 2025 2:37pm Macromastia May 07, 2025 7:14a m Chief Complaint Admit Date SCREENING January 13, 2025 3:2 0pm pre op breast reduction February 27, 2025 2: 37pm PREOP April 01, 2025 1:14p m Breast reduction with possible free May 07, 2025 7:02am Breast reduction with possible free May 07, 2025 7:14am Breast reduction with possible free May 08, 2025 7:10am POST OP May 12, 2025 3:51 pm Chief Complaint Admit Date pre op breast reduction February 27, 2025 2: 37pm PREOP April 01, 2025 1:14p m Breast reduction with possible free May 07, 2025 7:02am Breast reduction with possible free May 07, 2025 7:14am Breast reduction with possible free May 08, 2025 7:10am POST OP May 12, 2025 3:51 pm FOLLOW UP May 16, 2025 9:44 am Reason for Visit Admit Date Macromastia February 27, 2025 2:37pm Macromastia May 07, 2025 7:14a m Status post breast reduction May 12, 2025 3:51pm Chief Complaint Admit Date pre op breast reduction February 27, 2025 2: 37pm PREOP April 01, 2025 1:14p m Breast reduction with possible free May 07, 2025 7:02am Breast reduction with possible free May 07, 2025 7:14am Breast reduction with possible free May 08, 2025 7:10am POST OP May 12, 2025 3:51 pm FOLLOW UP May 16, 2025 9:44 am 1 W FU May 23, 2025 9:48 am Reason for Visit Admit Date Macromastia February 27, 2025 2:37pm Macromastia May 07, 2025 7:14a m Status post breast reduction May 12, 2025 3:51pm Status post breast reduction May 16, 2025 9:44am Chief Complaint Admit Date pre op breast reduction February 27, 2025 2: 37pm PREOP April 01, 2025 1:14p m Breast reduction with possible free May 07, 2025 7:02am Breast reduction with possible free May 07, 2025 7:14am Breast reduction with possible free May 08, 2025 7:10am POST OP May 12, 2025 3:51 pm FOLLOW UP May 16, 2025 9:44 am 1 W FU May 23, 2025 9:48 am general illness May 26, 2025 8:44 pm CELLULITIS May 26, 2025 9:55 pm Reason for Visit Admit Date Macromastia February 27, 2025 2:37pm Macromastia May 07, 2025 7:14a m Status post breast reduction May 12, 2025 3:51pm Status post breast reduction May 16, 2025 9:44am Status post breast reduction May 23, 2025 9:48am Postoperative wound cellulitis April 9:55pm Status post breast reduction May 26, 2025 9:55pm Chief Complaint Admit Date pre op breast reduction February 27, 2025 2: 37pm PREOP April 01, 2025 1:14p m Breast reduction with possible free May 07, 2025 7:02am Breast reduction with possible free May 07, 2025 7:14am Breast reduction with possible free May 08, 2025 7:10am POST OP May 12, 2025 3:51 pm FOLLOW UP May 16, 2025 9:44 am 1 W FU May 23, 2025 9:48 am general illness May 26, 2025 8:44 pm CELLULITIS May 26, 2025 9:55 pm Cellulitis May 27, 2025 10:1 2am Cellulitis May 28, 2025 10:4 9am Chief Complaint Admit Date pre op breast reduction February 27, 2025 2: 37pm PREOP April 01, 2025 1:14p m Breast reduction with possible free May 07, 2025 7:02am Breast reduction with possible free May 07, 2025 7:14am Breast reduction with possible free May 08, 2025 7:10am POST OP May 12, 2025 3:51 pm FOLLOW UP May 16, 2025 9:44 am 1 W FU May 23, 2025 9:48 am general illness May 26, 2025 8:44 pm CELLULITIS May 26, 2025 9:55 pm Cellulitis May 27, 2025 10:1 2am Cellulitis May 28, 2025 10:4 9am 1 W FU May 30, 2025 11: 23am Chief Complaint Admit Date pre op breast reduction February 27, 2025 2: 37pm PREOP April 01, 2025 1:14p m Breast reduction with possible free May 07, 2025 7:02am Breast reduction with possible free May 07, 2025 7:14am Breast reduction with possible free May 08, 2025 7:10am POST OP May 12, 2025 3:51 pm FOLLOW UP May 16, 2025 9:44 am 1 W FU May 23, 2025 9:48 am general illness May 26, 2025 8:44 pm CELLULITIS May 26, 2025 9:55 pm Cellulitis May 27, 2025 10:1 2am Cellulitis May 28, 2025 10:4 9am 1 W FU May 30, 2025 11: 23am 1 W FU June 05, 2025 11: 14am Reason for Visit Admit Date Macromastia February 27, 2025 2:37pm Macromastia May 07, 2025 7:14a m Status post breast reduction May 12, 2025 3:51pm Status post breast reduction May 16, 2025 9:44am Status post breast reduction May 23, 2025 9:48am Postoperative wound cellulitis April 9:55pm Status post breast reduction May 26, 2025 9:55pm Postoperative wound cellulitis May 11:23am Status post breast reduction May 30, 2025 11:23am Chief Complaint Admit Date pre op breast reduction February 27, 2025 2: 37pm PREOP April 01, 2025 1:14p m Breast reduction with possible free May 07, 2025 7:02am Breast reduction with possible free May 07, 2025 7:14am Breast reduction with possible free May 08, 2025 7:10am POST OP May 12, 2025 3:51 pm FOLLOW UP May 16, 2025 9:44 am 1 W FU May 23, 2025 9:48 am general illness May 26, 2025 8:44 pm CELLULITIS May 26, 2025 9:55 pm Cellulitis May 27, 2025 10:1 2am Cellulitis May 28, 2025 10:4 9am 1 W FU May 30, 2025 11: 23am 1 W FU June 05, 2025 11: 14am 1 W FU June 13, 2025 10 :49am Reason for Visit Admit Date Macromastia February 27, 2025 2:37pm Macromastia May 07, 2025 7:14a m Status post breast reduction May 12, 2025 3:51pm Status post breast reduction May 16, 2025 9:44am Status post breast reduction May 23, 2025 9:48am Postoperative wound cellulitis April 9:55pm Status post breast reduction May 26, 2025 9:55pm Postoperative wound cellulitis May 11:23am Status post breast reduction May 30, 2025 11:23am Status post breast reduction June 05, 2025 11:14am Chief Complaint Admit Date pre op breast reduction February 27, 2025 2: 37pm PREOP April 01, 2025 1:14p m Breast reduction with possible free May 07, 2025 7:02am Breast reduction with possible free May 07, 2025 7:14am Breast reduction with possible free May 08, 2025 7:10am POST OP May 12, 2025 3:51 pm FOLLOW UP May 16, 2025 9:44 am 1 W FU May 23, 2025 9:48 am general illness May 26, 2025 8:44 pm CELLULITIS May 26, 2025 9:55 pm Cellulitis May 27, 2025 10:1 2am Cellulitis May 28, 2025 10:4 9am 1 W FU May 30, 2025 11: 23am 1 W FU June 05, 2025 11: 14am 1 W FU June 13, 2025 10 :49am [facility] June 13, 2025 2: 22pm FOLLOW UP June 20, 2025 10 :28am Reason for Visit Admit Date Macromastia February 27, 2025 2:37pm Macromastia May 07, 2025 7:14a m Status post breast reduction May 12, 2025 3:51pm Status post breast reduction May 16, 2025 9:44am Status post breast reduction May 23, 2025 9:48am Postoperative wound cellulitis April 9:55pm Status post breast reduction May 26, 2025 9:55pm Postoperative wound cellulitis May 11:23am Status post breast reduction May 30, 2025 11:23am Status post breast reduction June 05, 2025 11:14am Status post breast reduction May 10:49am Status post breast reduction May 10:28am Chief Complaint Admit Date PREOP April 01, 2025 1:14p m Breast reduction with possible free May 07, 2025 7:02am Breast reduction with possible free May 07, 2025 7:14am Breast reduction with possible free May 08, 2025 7:10am POST OP May 12, 2025 3:51 pm FOLLOW UP May 16, 2025 9:44 am 1 W FU May 23, 2025 9:48 am general illness May 26, 2025 8:44 pm CELLULITIS May 26, 2025 9:55 pm Cellulitis May 27, 2025 10:1 2am Cellulitis May 28, 2025 10:4 9am 1 W FU May 30, 2025 11: 23am 1 W FU June 05, 2025 11: 14am 1 W FU June 13, 2025 10 :49am [facility] June 13, 2025 2: 22pm FOLLOW UP June 20, 2025 10 :28am FOLLOW UP July 11, 2025 11:04am Reason for Visit Admit Date Macromastia May 07, 2025 7:14a m Status post breast reduction May 12, 2025 3:51pm Status post breast reduction May 16, 2025 9:44am Status post breast reduction May 23, 2025 9:48am Postoperative wound cellulitis April 9:55pm Status post breast reduction May 26, 2025 9:55pm Postoperative wound cellulitis May 11:23am Status post breast reduction May 30, 2025 11:23am Status post breast reduction June 05, 2025 11:14am Status post breast reduction May 10:49am Status post breast reduction May 10:28am Status post breast reduction June 302024 11:04am Chief Complaint Admit Date PREOP April 01, 2025 1:14p m Breast reduction with possible free May 07, 2025 7:02am Breast reduction with possible free May 07, 2025 7:14am Breast reduction with possible free May 08, 2025 7:10am POST OP May 12, 2025 3:51 pm FOLLOW UP May 16, 2025 9:44 am 1 W FU May 23, 2025 9:48 am general illness May 26, 2025 8:44 pm CELLULITIS May 26, 2025 9:55 pm Cellulitis May 27, 2025 10:1 2am Cellulitis May 28, 2025 10:4 9am 1 W FU May 30, 2025 11: 23am 1 W FU June 05, 2025 11: 14am 1 W FU June 13, 2025 10 :49am LABSPEC June 13, 2025 2: 22pm FOLLOW UP June 20, 2025 10 :28am FOLLOW UP July 11, 2025 11:04am 2 W FU July 24, 2025 11:06am Reason for Visit Admit Date Macromastia May 07, 2025 7:14a m Status post breast reduction May 12, 2025 3:51pm Status post breast reduction May 16, 2025 9:44am Status post breast reduction May 23, 2025 9:48am Postoperative wound cellulitis April 9:55pm Status post breast reduction May 26, 2025 9:55pm Postoperative wound cellulitis May 11:23am Status post breast reduction May 30, 2025 11:23am Status post breast reduction June 05, 2025 11:14am Status post breast reduction May 10:49am Status post breast reduction May 10:28am Status post breast reduction June 302024 11:04am Pyoderma gangrenosum July 24 11:06am Status post breast reduction July 012024 11:06am Additional Source Comments INFORMATION SOURCE (unrecogn ized section and content) DATE CREATED AUTHOR 05/25/2019 [facility] DATE CREATED AUTHOR AUTHOR'S ORGANIZ ATION 05/23/2024 [facility] DATE CREATED AUTHOR AUTHOR'S ORGANIZ ATION 08/19/2025 [facility] Goals (unrecognized section and content) Goals [...] Status: Active Member Role Status Dates Dr. Bharathi Preston MD Family Provider Active Dr. Bharathi Preston MD Primary Care Provider Active Team Status: Inactive Member Role Status Dates Dr. Bharathi Preston MD Primary Care Provider, Referring Provider Active Dr. Tammy Sears DO Attending Provider Activ e Team Status: Inactive Member Role Status Dates Dr. Bharathi Preston MD Primary Care Provider Active Dr. Tammy Seras DO Attending Provider, Refe rring Provider Active Team Status: Inactive Member Role Status Dates Dr. Bharathi Preston MD Primary Care Provider Active Gin Guadalupe DO Attending Provider, Referring Pr ovider Active Team Status: Active Member Role Status Dates Dr. 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 Referring Provider Active Start: January 13, 2025 End: January 13, 2025 Team Status: Active Member Role/Relationship Status Dates Clemencia Guadalupe VSC, DO Primary Care Provider Active Team Status: Inactive Member Role/Relationship Status Dates Clemencia Guadalupe VSC, DO Primary Care Provider Active Start: January 13, 2025 End: January 13, 2025 Santa Burk [employer]ENCE SCHO[employer] TEACHER, [employer]RES[employer]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 Yannick Bourne MD Attending Provider Active Start: February 27, 2025 End: February 27, 2025 Team Status: Active Member Role/Relationship Status Dates Clemencia Collins VSC, DO Primary Care Provider Active Start: April 01, 2025 End: April 01, 2025 Dr. Florentin Rayo MD Attending Provider Active Start: April 01, 2025 End: April 01, 2025 Dr. Yannick Bourne MD Referring Provider Active Start: April 01, 2025 End: April 01, 2025 Team Status: Active Member Role/Relationship Status Dates Clemencia Collins VSC, DO Primary Care Provider Active Start: May 07, 2025 Dr. Yannick Bourne MD Attending Provider Active Start: May 07, 2025 Dr. Yannick Bourne MD Referring Provider Active Start: May 07, 2025 Dr. Yannick Bourne MD Other Provider Active Star t: May 07, 2025 Team Status: Inactive Member Role/Relationship Status Dates Clemencia Guadalupe VSC, DO Primary Care Provider Active Start: May 07, 2025 End: May 08, 2025 Dr. Yannick Bourne MD Admit Provider Active Star t: May 07, 2025 End: May 08, 2025 Dr. Yannick Bourne MD Attending Provider Active Start: May 07, 2025 End: May 08, 2025 Dr. Yannick Bourne MD Referring Provider Active Start: May 07, 2025 End: May 08, 2025 Team Status: Active Member Role/Relationship Status Dates Clemencia Collins VSC, DO Primary Care Provider Active Start: May 08, 2025 Dr. Yannick Bourne MD Admit Provider Active Star t: May 08, 2025 Dr. Yannick Bourne MD Attending Provider Active Start: May 08, 2025 Dr. Yannick Bourne MD Referring Provider Active Start: May 08, 2025 Dr. Yannick Bourne MD Other Provider Active Star t: May 08, 2025 Team Status: Inactive Member Role/Relationship Status Dates Clemencia Collins VSC, DO Primary Care Provider Active Start: May 12, 2025 End: May 12, 2025 Clemencia Guadalupe VSC, DO Referring Provider Active Start: May 12, 2025 End: May 12, 2025 Dr. Yannick Bourne MD Attending Provider Active Start: May 12, 2025 End: May 12, 2025 Team Status: Inactive Member Role/Relationship Status Dates Clemencia Reillyer VSC, DO Primary Care Provider Active Start: February 27, 2025 End: February 27, 2025 Clemencia Guadalupe VSC, DO Referring Provider Active Start: February 27, 2025 End: February 27, 2025 Dr. Yannick Bourne MD Attending Provider Active Start: February 27, 2025 End: February 27, 2025 Team Status: Active Member Role/Relationship Status Dates Clemencia Reillyer VSC, DO Primary Care Provider Active Start: April 01, 2025 End: April 01, 2025 Dr. Florentin Rayo MD Attending Provider Active Start: April 01, 2025 End: April 01, 2025 Dr. Yannick Bourne MD Referring Provider Active Start: April 01, 2025 End: April 01, 2025 Team Status: Active Member Role/Relationship Status Dates Clemencia Collins VSC, DO Primary Care Provider Active Start: May 07, 2025 Dr. Yannick Bourne MD Attending Provider Active Start: May 07, 2025 Dr. Yannick Bourne MD Referring Provider Active Start: May 07, 2025 Dr. Yannick Bourne MD Other Provider Active Star t: May 07, 2025 Team Status: Inactive Member Role/Relationship Status Dates Clemencia Zuniganger VSC, DO Primary Care Provider Active Start: May 07, 2025 End: May 08, 2025 Dr. Yannick Bourne MD Admit Provider Active Star t: May 07, 2025 End: May 08, 2025 Dr. Yannick Bourne MD Attending Provider Active Start: May 07, 2025 End: May 08, 2025 Dr. Yannick Bourne MD Referring Provider Active Start: May 07, 2025 End: May 08, 2025 Team Status: Active Member Role/Relationship Status Dates Clemencia Zuniganger VSC, DO Primary Care Provider Active Start: May 08, 2025 Dr. Yannick Bourne MD Admit Provider Active Star t: May 08, 2025 Dr. Yannick Bourne MD Attending Provider Active Start: May 08, 2025 Dr. Yannick Bourne MD Referring Provider Active Start: May 08, 2025 Dr. Yannick Bourne MD Other Provider Active Star t: May 08, 2025 Team Status: Inactive Member Role/Relationship Status Dates Clemencia Zuniganger VSC, DO Primary Care Provider Active Start: May 12, 2025 End: May 12, 2025 Clemencia Zuniganger VSC, DO Referring Provider Active Start: May 12, 2025 End: May 12, 2025 Dr. Yannick Bourne MD Attending Provider Active Start: May 12, 2025 End: May 12, 2025 Team Status: Inactive Member Role/Relationship Status Dates Clemencia Collins VSC, DO Primary Care Provider Active Start: May 16, 2025 End: May 16, 2025 Clemencia Collins VSC, DO Referring Provider Active Start: May 16, 2025 End: May 16, 2025 Dr. Yannick Bourne MD Attending Provider Active Start: May 16, 2025 End: May 16, 2025 Team Status: Inactive Member Role/Relationship Status Dates Clemencia Collins VSC, DO Primary Care Provider Active Start: May 23, 2025 End: May 23, 2025 Clemencia Collins VSC, DO Referring Provider Active Start: May 23, 2025 End: May 23, 2025 Dr. Yannick Bourne MD Attending Provider Active Start: May 23, 2025 End: May 23, 2025 Team Status: Active Member Role/Relationship Status Dates Clemencia Zuniganger VSC, DO Primary Care Provider Active Start: May 26, 2025 Dr. Chris Calhoun , DO Emergency Provider Active Start : May 26, 2025 Dr. Yannick Bourne MD Attending Provider Active Start: May 26, 2025 Team Status: Active Member Role/Relationship Status Dates Clemencia Zuniganger VSC, DO Primary Care Provider Active Start: May 26, 2025 Dr. Chris Calhoun DO Emergency Provider Active Start : May 26, 2025 Dr. Yannick Bourne MD Admit Provider Active Star t: May 26, 2025 Dr. Yannick Bourne MD Attending Provider Active Start: May 26, 2025 Team Status: Inactive Member Role/Relationship Status Dates Clemencia Zuniganger VSC, DO Primary Care Provider Active Start: May 26, 2025 End: May 28, 2025 Dr. Chris Calhoun , Emergency Provider Active Start : May 26, 2025 End: May 28, 2025 Dr. Yannick Bourne MD Admit Provider Active Star t: May 26, 2025 End: May 28, 2025 Dr. Yannick Bourne MD Attending Provider Active Start: May 26, 2025 End: May 28, 2025 Team Status: Active Member Role/Relationship Status Dates Clemencia Collins VSC, DO Primary Care Provider Active Start: May 27, 2025 Dr. Chris Calhoun , DO Emergency Provider Active Start : May 27, 2025 Dr. Yannick Bourne MD Admit Provider Active Star t: May 27, 2025 Dr. Yannick Bourne MD Attending Provider Active Start: May 27, 2025 Dr. Yannick Bourne MD Other Provider Active Star t: May 27, 2025 Team Status: Active Member Role/Relationship Status Dates Clemencia Collins VSC, DO Primary Care Provider Active Start: May 28, 2025 Dr. Chris Calhoun , DO Emergency Provider Active Start : May 28, 2025 Dr. Yannick Bourne MD Admit Provider Active Star t: May 28, 2025 Dr. Yannick Bourne MD Attending Provider Active Start: May 28, 2025 Dr. Yannick Bourne MD Other Provider Active Star t: May 28, 2025 Team Status: Inactive Member Role/Relationship Status Dates Clemencia Collins VSC, DO Primary Care Provider Active Start: May 30, 2025 End: May 30, 2025 Clemencia Collins VSC, DO Referring Provider Active Start: May 30, 2025 End: May 30, 2025 Dr. Yannick Bourne MD Attending Provider Active Start: May 30, 2025 End: May 30, 2025 Team Status: Inactive Member Role/Relationship Status Dates Clemencia Collins VSC, DO Primary Care Provider Active Start: June 05, 2025 End: June 05, 2025 Clemencia Collins VSC, DO Referring Provider Active Start: June 05, 2025 End: June 05, 2025 Dr. Yannick Bourne MD Attending Provider Active Start: June 05, 2025 End: June 05, 2025 Team Status: Inactive Member Role/Relationship Status Dates Clemencia Collins VSC, DO Primary Care Provider Active Start: June 13, 2025 End: June 13, 2025 Clemencia Collnis VSC, DO Referring Provider Active Start: June 13, 2025 End: June 13, 2025 Dr. Yannick Bourne MD Attending Provider Active Start: June 13, 2025 End: June 13, 2025 Team Status: Active Member Role/Relationship Status Dates Clemencia Collins VSC, DO Primary Care Provider Active Start: June 13, 2025 Dr. Yannick Bourne MD Attending Provider Active Start: June 13, 2025 Dr. Yannick Bourne MD Referring Provider Active Start: June 13, 2025 Team Status: Inactive Member Role/Relationship Status Dates Clemencia Guadalupe VSC, DO Primary Care Provider Active Start: June 20, 2025 End: June 20, 2025 Clemencia Zuniganger VSC, DO Referring Provider Active Start: June 20, 2025 End: June 20, 2025 Dr. Yannick Bourne MD Attending Provider Active Start: June 20, 2025 End: June 20, 2025 Team Status: Inactive Member Role/Relationship Status Dates Clemencia Guadalupe VSC, DO Primary Care Provider Active Start: June 13, 2025 End: June 13, 2025 Dr. Yannick Bourne MD Attending Provider Active Start: June 13, 2025 End: June 13, 2025 Dr. Yannick Bourne MD Referring Provider Active Start: June 13, 2025 End: June 13, 2025 Team Status: Inactive Member Role/Relationship Status Dates Clemencia Guadalupe VSC, DO Primary Care Provider Active Start: June 23, 2025 End: June 23, 2025 Dr. Ramón Pickering MD Attending Provider Active S tart: June 23, 2025 End: June 23, 2025 Dr. Ramón Pickering MD Referring Provider Active S tart: June 23, 2025 End: June 23, 2025 Team Status: Active Member Role/Relationship Status Dates Clemencia Guadalupe VSC, DO Primary Care Provider Active Start: April 01, 2025 End: April 01, 2025 Dr. Florentin Rayo MD Attending Provider Active Start: April 01, 2025 End: April 01, 2025 Dr. Yannick Bourne MD Referring Provider Active Start: April 01, 2025 End: April 01, 2025 Team Status: Active Member Role/Relationship Status Dates Clemencia Guadalupe VSC, DO Primary Care Provider Active Start: May 07, 2025 Dr. Yannick Bourne MD Attending Provider Active Start: May 07, 2025 Dr. Yannick oBurne MD Referring Provider Active Start: May 07, 2025 Dr. Yannick Bourne MD Other Provider Active Star t: May 07, 2025 Team Status: Inactive Member Role/Relationship Status Dates Clemencia Collins VSC, DO Primary Care Provider Active Start: May 07, 2025 End: May 08, 2025 Dr. Yannick Bourne MD Admit Provider Active Star t: May 07, 2025 End: May 08, 2025 Dr. Yannick Bourne MD Attending Provider Active Start: May 07, 2025 End: May 08, 2025 Dr. Yannick Bourne MD Referring Provider Active Start: May 07, 2025 End: May 08, 2025 Team Status: Active Member Role/Relationship Status Dates Clemencia Guadalupe VSC, DO Primary Care Provider Active Start: May 08, 2025 Dr. Yannick Bourne MD Admit Provider Active Star t: May 08, 2025 Dr. Yannick Bourne MD Attending Provider Active Start: May 08, 2025 Dr. Yannick Bourne MD Referring Provider Active Start: May 08, 2025 Dr. Yannick Bourne MD Other Provider Active Star t: May 08, 2025 Team Status: Inactive Member Role/Relationship Status Dates Clemencia Collins VSC, DO Primary Care Provider Active Start: May 12, 2025 End: May 12, 2025 Clemencia Collins VSC, DO Referring Provider Active Start: May 12, 2025 End: May 12, 2025 Dr. Yannick Bourne MD Attending Provider Active Start: May 12, 2025 End: May 12, 2025 Team Status: Inactive Member Role/Relationship Status Dates Clemencia Collins VSC, DO Primary Care Provider Active Start: May 16, 2025 End: May 16, 2025 Clemencia Collins VSC, DO Referring Provider Active Start: May 16, 2025 End: May 16, 2025 Dr. Yannick Bourne MD Attending Provider Active Start: May 16, 2025 End: May 16, 2025 Team Status: Inactive Member Role/Relationship Status Dates Clemencia Collins VSC, DO Primary Care Provider Active Start: May 23, 2025 End: May 23, 2025 Clemencia Collins VSC, DO Referring Provider Active Start: May 23, 2025 End: May 23, 2025 Dr. Yannick Bourne MD Attending Provider Active Start: May 23, 2025 End: May 23, 2025 Team Status: Active Member Role/Relationship Status Dates Clemencia Collins VSC, DO Primary Care Provider Active Start: May 26, 2025 Dr. Chris Calhoun , DO Emergency Provider Active Start : May 26, 2025 Dr. Yannick Bourne MD Attending Provider Active Start: May 26, 2025 Team Status: Inactive Member Role/Relationship Status Dates Clemencia Collins VSC, DO Primary Care Provider Active Start: May 26, 2025 End: May 28, 2025 Dr. Chris Calhoun , DO Emergency Provider Active Start : May 26, 2025 End: May 28, 2025 Dr. Yannick Bourne MD Admit Provider Active Star t: May 26, 2025 End: May 28, 2025 Dr. Yannick Bourne MD Attending Provider Active Start: May 26, 2025 End: May 28, 2025 Team Status: Active Member Role/Relationship Status Dates Clemencia Guadalupe VSC, DO Primary Care Provider Active Start: May 27, 2025 Dr. Chris Calhoun , DO Emergency Provider Active Start : May 27, 2025 Dr. Yannick Bourne MD Admit Provider Active Star t: May 27, 2025 Dr. Yannick Bourne MD Attending Provider Active Start: May 27, 2025 Dr. Yannick Bourne MD Other Provider Active Star t: May 27, 2025 Team Status: Active Member Role/Relationship Status Dates Clemencia Collins VSC, DO Primary Care Provider Active Start: May 28, 2025 Dr. Chris Calhoun DO Emergency Provider Active Start : May 28, 2025 Dr. Yannick Bourne MD Admit Provider Active Star t: May 28, 2025 Dr. Yannick Bourne MD Attending Provider Active Start: May 28, 2025 Dr. Yannick Bourne MD Other Provider Active Star t: May 28, 2025 Team Status: Inactive Member Role/Relationship Status Dates Clemencia Collins VSC, DO Primary Care Provider Active Start: May 30, 2025 End: May 30, 2025 Clemencia Guadalupe VSC, DO Referring Provider Active Start: May 30, 2025 End: May 30, 2025 Dr. Yannick Bourne MD Attending Provider Active Start: May 30, 2025 End: May 30, 2025 Team Status: Inactive Member Role/Relationship Status Dates Clemencia Reillyer VSC, DO Primary Care Provider Active Start: June 05, 2025 End: June 05, 2025 Clemencia Zuniganger VSC, DO Referring Provider Active Start: June 05, 2025 End: June 05, 2025 Dr. Yannick Bourne MD Attending Provider Active Start: June 05, 2025 End: June 05, 2025 Team Status: Inactive Member Role/Relationship Status Dates Clemencia Zuniganger VSC, DO Primary Care Provider Active Start: June 13, 2025 End: June 13, 2025 Clemencia Zuniganger VSC, DO Referring Provider Active Start: June 13, 2025 End: June 13, 2025 Dr. Yannick Bourne MD Attending Provider Active Start: June 13, 2025 End: June 13, 2025 Team Status: Inactive Member Role/Relationship Status Dates Clemencia Zuniganger VSC, DO Primary Care Provider Active Start: June 13, 2025 End: June 13, 2025 Dr. Yannick Bourne MD Attending Provider Active Start: June 13, 2025 End: June 13, 2025 Dr. Yannick Bourne MD Referring Provider Active Start: June 13, 2025 End: June 13, 2025 Team Status: Inactive Member Role/Relationship Status Dates Clemencia Reillyer VSC, DO Primary Care Provider Active Start: June 20, 2025 End: June 20, 2025 Clemencia Zuniganger VSC, DO Referring Provider Active Start: June 20, 2025 End: June 20, 2025 Dr. Yannick Bourne MD Attending Provider Active Start: June 20, 2025 End: June 20, 2025 Team Status: Inactive Member Role/Relationship Status Dates Clemencia Reillyer VSC, DO Primary Care Provider Active Start: June 23, 2025 End: June 23, 2025 Dr. Ramón Pickering MD Attending Provider Active S tart: June 23, 2025 End: June 23, 2025 Dr. Ramón Pickering MD Referring Provider Active S tart: June 23, 2025 End: June 23, 2025 Team Status: Inactive Member Role/Relationship Status Dates Clemencia Zuniganger VSC, DO Primary Care Provider Active Start: July 11, 2025 End: July 11, 2025 Clemencia Collins VSC, DO Referring Provider Active Start: July 11, 2025 End: July 11, 2025 Dr. Yannick Bourne MD Attending Provider Active Start: July 11, 2025 End: July 11, 2025 Team Status: Active Member Role/Relationship Status Dates Clemencia Collins VSC, DO Primary care physician Active Team Status: Active Member Role/Relationship Status Dates Clemencia Collins VSC, DO Primary care physician Active Start: April 01, 2025 End: April 01, 2025 Dr. Florentin Rayo MD Attending physician Active Start: April 01, 2025 End: April 01, 2025 Dr. Yannick Bourne MD Referring Provider Active Start: April 01, 2025 End: April 01, 2025 Team Status: Active Member Role/Relationship Status Dates Clemencia Collins VSC, DO Primary care physician Active Start: May 07, 2025 Dr. Yannick Bourne MD Attending physician Active Start: May 07, 2025 Dr. Yannick Bourne MD Referring Provider Active Start: May 07, 2025 Dr. Yannick Bourne MD Nurse Practitioner Active Start: May 07, 2025 Team Status: Inactive Member Role/Relationship Status Dates Clemencia Zuniganger VSC, DO Primary care physician Active Start: May 07, 2025 End: May 08, 2025 Dr. Yannick Bourne MD Admitting physician Active Start: May 07, 2025 End: May 08, 2025 Dr. Yannick Bourne MD Attending physician Active Start: May 07, 2025 End: May 08, 2025 Dr. Yannick Bourne MD Referring Provider Active Start: May 07, 2025 End: May 08, 2025 Team Status: Active Member Role/Relationship Status Dates Clemencia Zuniganger VSC, DO Primary care physician Active Start: May 08, 2025 Dr. Yannick Bourne MD Admitting physician Active Start: May 08, 2025 Dr. Yannick Bourne MD Attending physician Active Start: May 08, 2025 Dr. Yannick Bourne MD Referring Provider Active Start: May 08, 2025 Dr. Yannick Bourne MD Nurse Practitioner Active Start: May 08, 2025 Team Status: Inactive Member Role/Relationship Status Dates Clemencia Collins VSC, DO Primary care physician Active Start: May 12, 2025 End: May 12, 2025 Clemencia Collins VSC, DO Referring Provider Active Start: May 12, 2025 End: May 12, 2025 Dr. Yannick Bourne MD Attending physician Active Start: May 12, 2025 End: May 12, 2025 Team Status: Inactive Member Role/Relationship Status Dates Clemencia Guadalupe VSC, DO Primary care physician Active Start: May 16, 2025 End: May 16, 2025 Clemencia Guadalupe VSC, DO Referring Provider Active Start: May 16, 2025 End: May 16, 2025 Dr. Yannick Bourne MD Attending physician Active Start: May 16, 2025 End: May 16, 2025 Team Status: Inactive Member Role/Relationship Status Dates Clemencia Guadalupe VSC, DO Primary care physician Active Start: May 23, 2025 End: May 23, 2025 Clemencia Guadalupe VSC, DO Referring Provider Active Start: May 23, 2025 End: May 23, 2025 Dr. Yannick Bourne MD Attending physician Active Start: May 23, 2025 End: May 23, 2025 Team Status: Active Member Role/Relationship Status Dates Clemencia Guadalupe VSC, DO Primary care physician Active Start: May 26, 2025 Dr. Chris Calhoun , DO Emergency Department Physician Active Start: May 26, 2025 Dr. Yannick Bourne MD Attending physician Active Start: May 26, 2025 Team Status: Inactive Member Role/Relationship Status Dates Clemencia Guadalupe VSC, DO Primary care physician Active Start: May 26, 2025 End: May 28, 2025 Dr. Chris Calhoun , Emergency Department Physician Active Start: May 26, 2025 End: May 28, 2025 Dr. Yannick Bourne MD Admitting physician Active Start: May 26, 2025 End: May 28, 2025 Dr. Yannick Bourne MD Attending physician Active Start: May 26, 2025 End: May 28, 2025 Team Status: Active Member Role/Relationship Status Dates Clemencia Guadalupe VSC, DO Primary care physician Active Start: May 27, 2025 Dr. Chris Calhoun DO Emergency Department Physician Active Start: May 27, 2025 Dr. Yannick Bourne MD Admitting physician Active Start: May 27, 2025 Dr. Yannick Bourne MD Attending physician Active Start: May 27, 2025 Dr. Yannick Bourne MD Nurse Practitioner Active Start: May 27, 2025 Team Status: Active Member Role/Relationship Status Dates Clemencia Guadalupe VSC, DO Primary care physician Active Start: May 28, 2025 Dr. Chris Calhoun DO Emergency Department Physician Active Start: May 28, 2025 Dr. Yannick Bourne MD Admitting physician Active Start: May 28, 2025 Dr. Yannick Bourne MD Attending physician Active Start: May 28, 2025 Dr. Yannick Bourne MD Nurse Practitioner Active Start: May 28, 2025 Team Status: Inactive Member Role/Relationship Status Dates Clemencia Collins VSC, DO Primary care physician Active Start: May 30, 2025 End: May 30, 2025 Clemencia Collins VSC, DO Referring Provider Active Start: May 30, 2025 End: May 30, 2025 Dr. Yannick Bourne MD Attending physician Active Start: May 30, 2025 End: May 30, 2025 Team Status: Inactive Member Role/Relationship Status Dates Clemencia Collins VSC, DO Primary care physician Active Start: June 05, 2025 End: June 05, 2025 Clemencia Collins VSC, DO Referring Provider Active Start: June 05, 2025 End: June 05, 2025 Dr. Yannick Bourne MD Attending physician Active Start: June 05, 2025 End: June 05, 2025 Team Status: Inactive Member Role/Relationship Status Dates Clemencia Colilns VSC, DO Primary care physician Active Start: June 13, 2025 End: June 13, 2025 Clemencia Collins VSC, DO Referring Provider Active Start: June 13, 2025 End: June 13, 2025 Dr. Yannick Bourne MD Attending physician Active Start: June 13, 2025 End: June 13, 2025 Team Status: Inactive Member Role/Relationship Status Dates Clemencia Collins VSC, DO Primary care physician Active Start: June 13, 2025 End: June 13, 2025 Dr. Yannick Bourne MD Attending physician Active Start: June 13, 2025 End: June 13, 2025 Dr. Yannick Bourne MD Referring Provider Active Start: June 13, 2025 End: June 13, 2025 Team Status: Inactive Member Role/Relationship Status Dates Clemencia Guadalupe VSC, DO Primary care physician Active Start: June 20, 2025 End: June 20, 2025 Clemencia Collins VSC, DO Referring Provider Active Start: June 20, 2025 End: June 20, 2025 Dr. Yannick Bourne MD Attending physician Active Start: June 20, 2025 End: June 20, 2025 Team Status: Inactive Member Role/Relationship Status Dates Clemencia Collins VSC, DO Primary care physician Active Start: June 23, 2025 End: June 23, 2025 Dr. Ramón Pickering MD Attending physician Active Start: June 23, 2025 End: June 23, 2025 Dr. Ramón Pickering MD Referring Provider Active S tart: June 23, 2025 End: June 23, 2025 Team Status: Inactive Member Role/Relationship Status Dates Clemencia Zuniganger VSC, DO Primary care physician Active Start: July 11, 2025 End: July 11, 2025 Clemencia Collins VSC, DO Referring Provider Active Start: July 11, 2025 End: July 11, 2025 BENJIE Gaffney Attending physician Active Start : July 11, 2025 End: July 11, 2025 Team Status: Inactive Member Role/Relationship Status Dates Clemencai Guadalupe VSC, DO Primary care physician Active Start: July 24, 2025 End: July 24, 2025 Clemencia Collins VSC, DO Referring Provider Active Start: July 24, 2025 End: July 24, 2025 BENJIE Gaffney Attending physician Active Start : July 24, 2025 End: July 24, 2025 FOR RECORDS PERTAINING TO PATIENTS WHO [...] BE BASED ON THE PRIMARY CLINICAL RECORDS. [facility] [employer] provides no warranty or guarantee of the accuracy or completeness of information in this document.
[2025-08-19 18:32] LABS: Hematocrit 41.1 % (37-47); Hemoglobin 14.5 g/dL (12.0-15.0); Immature Granulocytes Count 0.170 X10^3/uL (0.0-0.0); Mean Corp Hgb Conc 35.3 g/dL (32-36); Mean Corpuscular Volume 84.0 fL (81-99); Mean Platelet Vol. 9.7 fl (6.2-12.0); NRBC Flagged by Analyzer 0 % (0-5); Platelet Count 287 K/mm3 (150-450); RBC Distribution Width CV 13.5 % (11.6-14.6); RBC Distribution Width SD 41.6 fl (35.1-43.9); Red Blood Count 4.89 M/mm3 (4.2-5.4); White Blood Count 17.8 K/mm3 (4.4-11.0)
[2025-08-19 19:02] LABS: Anion Gap 13 (5-15); BUN 11 mg/dL (4-19); BUN/Creat Ratio 14.1 RATIO (10-20); Calcium,Total 9.0 mg/dL (7.6-11.0); Carbon Dioxide 25.6 mmol/L (21.0-32.0); Chloride 99 mmol/L (98-108); Estimated Creatinine Clearance 100.82 ml/min (50-250); Glucose 168 mg/dL (70-99); Potassium 3.5 mmol/L (3.3-5.1)
[2025-08-19] MEDS: levoFLOXacin IV 750 MG/150 ML BAG 100 MG IV (19:03)
--- NOTE | 2025-08-19 19:54 | CON.PCM.SX_ITS ---
Assessment & Plan Assessment/Plan (1) Pyoderma gangrenosum: (2) Cellulitis: PLAN: Plan Agree with admission to medicine Given elevated lactate and WBC, agree with IV empiric antibiotics and admission for presumed cellulitis. Possible PG component given history and possible reaction to the biopsies. Should consider steroids as well (patient has been on steroids from Dr. Pickering, Dermatology). [facility] will follow. Patient happy with the plan and in agreement. HPI Consult Data Date of Consult: 08/19/25 HPI Narrative HPI Narrative: ANEUDY CASTRO, is a 54 F who presents with cellulitis v. Pyoderma gangrenosum (PG) of the bilateral breasts. Patient underwent breast reduction on 07 May 2025. She had issues with wound healing in post-op weeks 2-5 in two distinct circular areas on the right and left breast, with gun barrel kern appearance and sparring the nipples. She was presumptively diagnosed with PG and treated by dermatology with steroids. She improved and healed. I saw her last in clinic last week. Yesterday she went to Derm for evaluation of developing vesicular blisters. They were biopsied. Today she had redness and swelling of the bilateral breasts in the setting of the biopsies. Tonight in the ED, her WBC is 17 , she is tachycardic to 106 and has a lactic acid of 2.1. Otherwise she is afebrile with stable VS. She reports pain in the breasts and some nausea. [facility] Medical History (Updated 08/19/25 @ 20:[address] Yannick Bourne MD) Pyoderma gangrenosum Depression Anxiety Diabetes Arthritis Anemia Easy bruising History of diverticulitis History of IBS Non-smoker Shortness of breath on exertion Contraceptive management GERD (gastroesophageal reflux disease) Vitamin D deficiency Hyperhidrosis Hypertension Home Medications Medication Instructions Recorded Last Taken Type lisinopril 5 mg tablet 5 mg PO QDAY bp 01/16/1806/23 18:00 History potassium chloride 10 mEq 10 meq PO QDAY supplement 05/06/25 18:00 History tablet,extended release (Klor-Con) fluoxetine 40 mg capsule (Prozac) 40 mg PO DAILY mood 01/06/22 05/06/25 16:00 History levonorgestrel 20.4 mcg/24 hr (up 1 device intrauterin e ONCE child 01/06/22 Unknown History to 8 yrs) 52 mg intrauterine device (Liletta) bupropion HCl 150 mg 24 hr tablet, 150 mg PO QDAY mood 12/26/24 05/06/25 06:00 History extended release tirzepatide 2.5 mg/0.5 mL 2.5 mg subcut FR weight lose 12/26/24 04/18/25 History subcutaneous pen injector (Kimmy) Held on 05/26/25. Instructions: MD Ordered lansoprazole 15 mg capsule,delayed 15 mg PO DAILY gerd 03/31/25 05/06/25 18:00 History release (Prevacid 24Hr) valacyclovir 500 mg tablet 500 mg PO BID PRN cold sore s 03/31/25 Unknown History (Valtrex) hyoscyamine sulfate 0.125 mg tablet 0.125 mg PO Q12H P RN PRN dyspepsia 05/05/25 05/06/25 18:00 History doxycycline hyclate 100 mg capsule 100 mg PO BID 7 day s #14 caps 05/28/25 Unknown Rx lisinopril 20 mg tablet 20 mg PO QDAY 06/20/25 Unkno wn History potassium chloride 20 mEq 20 meq PO QDAY 06/20/25 Unkn own History tablet,extended release prednisone 20 mg tablet mg PO 07/11/25 Unknown Histo ry Allergy/AdvReac Type Severity Reaction Status Date / Time clindamycin Allergy Hives Verified 08/19/25 17:18 erythromycin base Allergy Anaphylaxis Verified 08/19/25 17:18 penicillin V Allergy unknown Verified 08/19/25 17:18 Sulfa (Sulfonamide Allergy Anaphylaxis Verified 08/19/25 17:18 Antibiotics) Family History Mother Hypertension CVA (cerebral vascular accident) Father Hypertension Surgical History Hx of LASIK S/P cholecystectomy H/O: Social History household members: spouse housing: house Smoking Status: Never smoker alcohol intake: never substance use type: does not use caffeine: Yes what type of physical activity do you participate in: none seatbelt use: always do you feel safe at home: Yes 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 Both breasts with redness and induration diffusely, L>R Nipples are spared from induration. Lab / Micro Data 08/19/25 18:18 08/19/25 18:18 Labs: Laboratory Results - last 24 hr 08/19/25 18:18: WBC 17.8 H, RBC 4.89, Hgb 14.5, Hct 41.1, MCV 84.0, MCH 29.7, MCHC 35.3, RDW Std Deviation 41.6, RDW Coeff of Edison 13.5, Plt Count 287, MPV 9.7, Immature Gran % (Auto) 1.000 H, Neut % (Auto) 79.0 H, Lymph % (Auto) 9.9 L, Foard % (Auto) 7.8, Eos % (Auto) 1.9, Baso % (Auto) 0.4, Absolute Neuts (auto) 14.1 H, Absolute Lymphs (auto) 1.77, Nucleated RBC % 0, Sodium 137, Potassium 3.5, Chloride 99, Carbon Dioxide 25.6, Anion Gap 13, BUN 11, Creatinine 0.79, Estim Creat Clear Calc 100.82, Est GFR (MDRD) Non-Af 89, BUN/Creatinine Ratio 14.1, Glucose 168 H, Lactic Acid 2.1 H*, Calcium 9.0
--- NOTE | 2025-08-19 20:05 | PCM.HP.STD ---
[facility] - General General Date of Admission: 08/19/25 Date of Service: 08/19/25 Chief Complaint: Left Breast Redness and Swelling with Fever. HPI Narrative ANEUDY JOHNSON, is a 54 F with a past medical history of essential hypertension; on lisinopril, morbid (class III) obesity; with a BMI of 42.3 this admission on tirzepatide, history of oral herpes simplex virus; on valacyclovir twice daily as needed, depression with anxiety; on bupropion and fluoxetine, history of levonorgestrel IUD in place (2019), history of IBS, history of diverticulitis, history of cholecystectomy (2009), history of , history of anemia, history of vitamin D deficiency, GERD; on lansoprazole and hyoscyamine sulfate twice daily as needed and history of breast reduction surgery on May 07, 2025 recently diagnosed pyoderma gangrenosum; with inconclusive biopsy on chronic steroid treatment followed by Dr. Bourne of plastic surgery who presents to [facility] ER complaining of Left breast redness and swelling with fever. Ms. Johnson reports that she underwent Left breast biopsy yesterday in an effort to confirm diagnosis of pyoderma gangrenosum. Since that time she has noticed increased redness and swelling of her Left breast with fever up to 101.6 °F. She admits to associated chills and lethargy with malaise in addition to increasing pain from her Left breast. In the ER she was noted to have a Leukocytosis of 17.8 K with a Left-shift of 1% in addition to Lactic Acidosis of 2.1 mmol/L all present on admission consistent with possible sepsis due to Left Breast Cellulitis in the setting of previously suspected Pyoderma Gangrenosum and she was then admitted to the PCU for ongoing care for status is expected to extend beyond 2 midnights. [facility] Medical History Pyoderma gangrenosum Depression Anxiety Diabetes Arthritis Anemia Easy bruising History of diverticulitis History of IBS Non-smoker Shortness of breath on exertion Contraceptive management GERD (gastroesophageal reflux disease) Vitamin D deficiency Hyperhidrosis Hypertension Home Medications Medication Instructions Recorded Last Taken Type fluoxetine 40 mg capsule (Prozac) 40 mg PO DAILY mood 01/06/22 05/06/25 16:00 History levonorgestrel 20.4 mcg/24 hr (up 1 device intrauterine ONCE child 01/06/22 Unknown History to 8 yrs) 52 mg intrauterine device (Liletta) bupropion HCl 150 mg 24 hr tablet, 150 mg PO QDAY mood 12/26/24 05/06/25 06:00 History extended release tirzepatide 2.5 mg/0.5 mL 2.5 mg subcut FR weight lose 12/26/24 04/18/25 History subcutaneous pen injector (Mounjaro) valacyclovir 500 mg tablet 500 mg PO BID PRN cold sores 03/31/25 Unknown History (Valtrex) hyoscyamine sulfate 0.125 mg tablet 0.125 mg PO Q12H PRN PRN dyspepsia 05/05/25 05/06/25 18:00 History lisinopril 20 mg tablet 20 mg PO QDAY blood pressure 06/20/25 Unknown History potassium chloride 20 mEq 20 meq PO QDAY supplement 06/20/25 Unknown History tablet,extended release prednisone 20 mg tablet 20 mg PO DAILY steroid 07/11/25 Unknown History Allergy/AdvReac Type Severity Reaction Status Date / Time clindamycin Allergy Hives Verified 08/19/25 22:39 erythromycin base Allergy Anaphylaxis Verified 08/19/25 22:39 penicillin V Allergy Hives Verified 08/19/25 22:39 Sulfa (Sulfonamide Allergy Anaphylaxis Verified 08/19/25 22:39 Antibiotics) Family History Mother Hypertension CVA (cerebral vascular accident) Father Hypertension Surgical History Hx of LASIK S/P cholecystectomy H/O: Social History household members: spouse housing: house Smoking Status: Never smoker alcohol intake: never substance use type: does not use caffeine: Yes what type of physical activity do you participate in: none seatbelt use: always do you feel safe at home: Yes 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 Eyes: Patient denies changes in vision or discharge from eyes. ENT: Patient denies runny nose, sore throat or ear pain. Resp: Patient denies shortness of breath or cough. CV: Patient admits to pain emanating from her Left breast that is nonradiating. She denies palpitations, heart racing or lower extremity edema. GI: Patient denies abdominal pain, nausea, vomiting, diarrhea or constipation. : Patient denies dysuria or hematuria. MSK: Patient admits to severe Left breast pain with redness and swelling as per HPI. Skin: Patient admits to severe Left breast pain with redness and swelling as per HPI. Psych: Patient denies symptoms of uncontrolled depression or anxiety. Neuro: Patient denies headache, paresthesias or focal neurologic deficits. Allergy: Patient denies lip swelling, tongue swelling or urticaria. Hematology: Patient denies easy bleeding or easy bruisability. Endocrinology: Patient denies polyuria, polydipsia, polyphagia or heat/cold intolerance. 14 point ROS otherwise negative except for positives noted above in HPI. Vital Signs Vital Signs Vital Signs: 08/19/25 17:19 Temperature 98.8 F Temperature Source Temporal Pulse Rate 112 H Respiratory Rate 18 Blood Pressure 136/96 H Blood Pressure Mean 109 Pulse Ox 97 Oxygen Delivery Method Room Air Weight Weight: 246 lb 8 oz Body Mass Index (BMI) 42.3 Physical Exam Const alert, oriented x3 and no apparent distress Constitutional Narrative: Morbidly obese but in good spirits and nontoxic in appearance. General Appearance: cooperative HEENT normocephalic, head/scalp atraumatic, hearing grossly normal bilaterally and moist oral mucous membranes Eyes PERRL, EOMs intact bilaterally and conjunctivae normal Neck no lymphadenopathy and supple Resp normal respiratory effort, no retractions, no use of accessory muscles and clear to auscultation bilaterally Cardio regular rate and regular rhythm GI normal to inspection, nondistended, normoactive bowel sounds, soft to palpation, non-tender and non-distended GI Narrative: Obese. Extremity normal to inspection, full ROM and no clubbing, cyanosis or edema Skin Skin Narrative: Patient has severe erythema of the Left breast with evidence of recent biopsy and [address]. No abscess or fluctuance noted but area is warm to touch. Neuro oriented x3, CN's II-XII intact bilaterally, moves all extremities and no focal motor deficits Sensorium / Orientation: awake, alert, oriented to person, oriented to place and oriented to time Speech: speech normal Psych affect normal Results Medical Records Data Attestation: I reviewed the patient's medical records Lab / Micro Data Attestation: I reviewed the patient's lab results. 08/19/25 18:18 08/19/25 18:18 Labs: Laboratory Results - last 24 hr 08/19/25 18:18: WBC 17.8 H, RBC 4.89, Hgb 14.5, Hct 41.1, MCV 84.0, MCH 29.7, MCHC 35.3, RDW Std Deviation 41.6, RDW Coeff of Edison 13.5, Plt Count 287, MPV 9.7, Immature Gran % (Auto) 1.000 H, Neut % (Auto) 79.0 H, Lymph % (Auto) 9.9 L, Long % (Auto) 7.8, Eos % (Auto) 1.9, Baso % (Auto) 0.4, Absolute Neuts (auto) 14.1 H, Absolute Lymphs (auto) 1.77, Nucleated RBC % 0, Sodium 137, Potassium 3.5, Chloride 99, Carbon Dioxide 25.6, Anion Gap 13, BUN 11, Creatinine 0.79, Estim Creat Clear Calc 100.82, Est GFR (MDRD) Non-Af 89, BUN/Creatinine Ratio 14.1, Glucose 168 H, Lactic Acid 2.1 H*, Calcium 9.0 Assessment & Plan Assessment/Plan (1) Cellulitis of left breast: (2) Leukocytosis: QUALIFIERS: Leukocytosis type: bandemia Qualified Code(s): D72.825 - Bandemia (3) Lactic acidosis: (4) Fever: QUALIFIERS: Fever type: unspecified Qualified Code(s): R50.9 - Fever, unspecified (5) Pyoderma gangrenosum: (6) Morbid obesity with BMI of 40.0-44.9, adult: PLAN: Plan 1. Leukocytosis of 17.8 K with a Left-shift of 1% in addition to Lactic Acidosis of 2.1 mmol/L all present on admission with Fever consistent with possible Sepsis due to Left Breast Cellulitis; with sepsis ruled out - Admit to PCU for treatment under the Sepsis protocol. Continue empiric IV vancomycin and IV piperacillin-tazobactam begun in the ER and await culture & sensitivity data. Check wound cultures and PCR MRSA probe. Give acetaminophen as needed for [id number] (level 1-5/10) pain or fever. Give morphine IV as needed for severe (level 6-10/10) pain. 2. History of breast reduction surgery on May 07, 2025 recently diagnosed pyoderma gangrenosum; with inconclusive biopsy on chronic steroid treatment followed by Dr. Bourne of plastic surgery with a recent Left breast biopsy done yesterday complicating #1 - After conferring with Dr. Bourne patient will be treated with IV methylprednisolone to treat suspected underlying pyoderma gangrenosum. She will also continue pantoprazole for GI prophylaxis on high-dose steroids. 3. Morbid (class III) obesity; with a BMI of 42.3 this admission on tirzepatide adding to the burden of disease outlined in #1 & #2 - Weight loss will be recommended. Check TSH. This complicates her case and may hamper recovery. Hold tirzepatide while inpatient. 4. Essential hypertension; on lisinopril - Hold scheduled antihypertensives in light of #1. Given IV hydralazine as needed for systolic blood pressure greater than 160 mmHg. 5. History of oral herpes simplex virus; on valacyclovir twice daily as needed - Maintain present treatment. 6. Depression with anxiety; on bupropion and fluoxetine - Resume home regimen. 7. History of levonorgestrel IUD in place (2019) - Noted. 8. History of IBS - Stable. 9. History of diverticulitis - Noted with no signs of recurrence at this time. 10. History of cholecystectomy (2009) - Noted. 11. History of - Noted for the sake of completeness. 12. History of anemia - Stable with hemoglobin of 14.5 g/dL and MCV of 84 fL present on admission. 13. History of vitamin D deficiency - Noted. We will check vitamin D level with patient not on current supplementation. 14. GERD; on lansoprazole and hyoscyamine sulfate twice daily - Resume PPI as outlined in #1. Give hyoscyamine as needed as previous. 15. DVT prophylaxis - Enoxaparin 40 mg sq BID plus SCD's. Total time: Approximately (but not less than) 55 minutes. Sepsis Attestation Sepsis Alert: Yes Sepsis Attestation: Sepsis Ruled Out Date exam was performed: 08/19/25 Time exam was performed: 21:00 Possible Source of Sepsis: Skin/soft tissue Sepsis Organ Dysfunction Criteria Present: Lactic Acid > 2 mmol/L Supportive Findings: In the ER she was noted to have a Leukocytosis of 17.8 K with a Left-shift of 1% in addition to Lactic Acidosis of 2.1 mmol/L all present on admission consistent with possible sepsis due to Left Breast Cellulitis in the setting of previously suspected Pyoderma Gangrenosum and she was then admitted to the PCU for ongoing care for status is expected to extend beyond 2 midnights. Sepsis was eventually ruled out so no fluid boluses were given since they were not initiated early in her admission with growing suspicion for possible underlying bacteremia. Fluid Resuscitation Fluid Resuscitation ordered: Fluids not indicated Amount of fluid ordered: 2 Sepsis Note Date exam was performed: 08/20/25 Time exam was performed: 01:00 Sepsis Attestation: Sepsis re-evaluation was performed Response to fluids: Fluid responsive hypotension Charges/Coding Visit Charges Inpatient E&M: 02900 Init Hosp L2
--- OUTSIDE RECORDS SUMMARY | 2025-08-19 20:46 | XMS RPT_ITS | CCD ---
Author Organization [facility] Care Team Providers Care Evening Sitter Name Role Phone Dr. Bharathi Preston Chi Primary Care Provider Dr. Bharathi Preston Chi Referring Provider Dr. Tammy Sears Attending Provider BHARATHI PRESTON CHI Primary Care Unavailable CAROLINA SANTANA Attending Unavailable Clemencia Guadalupe DO Primary Care Provider Clemencia Guadalupe DO Referring Provider Dr. Yannick Bourne MD Attending Provider Bhargavi ASSOCIATE DIRECTOR OF NURSING-C, [place] E Attending Provider Bhargavi ASSOCIATE DIRECTOR OF NURSING-C, [place] E Referring Provider Clemencia Guadalupe DO Primary Care Provider Clemencia Guadalupe DO Referring Provider Dr. Yannick Bourne MD Attending Provider Dr. Florentin Rayo MD Attending Provider Dr. Yannick Bourne MD Referring Provider Dr. Yannick Bourne MD Other Provider Dr. Yannick Bourne MD Admit Provider Clemencia Guadalupe DO Primary Care Provider Dr. Chris Calhoun DO Emergency Provider Dr. Ramón Pickering MD Attending Provider Dr. [...] Attending Unavailable Ramón Pickering Referring Unavailable Bhargavi ASSOCIATE DIRECTOR OF NURSING, [place] E Attending Unavailabl e Bhargavi ASSOCIATE DIRECTOR OF NURSING, [place] E Referring Unavailabl e Collins, Clemencia [...] Unavailable Collins, Clemencia Primary Care Unavailable Collins, Clemenica Referring Unavailable SisYannick grigsby Attending Unavailable SisYannick [...] (20 sources) Erythromycin Drug Allergy 2 Anaphylaxis [facility] (20 sources) Penicillin V Drug Allergy 2 unknown [facility] (20 sources) Sulfonamides (Antibiotic); Translations: [SULFA (SULFONAMIDE ANTIBIOTICS)] Allergy to substance 7 Anaphylaxis [facility] (1 source) Erythromycin; Translations: [ERYTHROMYCIN] Drug Allergy 7 [facility] (1 source) Penicillins; Translations: [PENICILLINS] Propensity to adverse reactions to drug (disorder) 7 [facility] (1 source) Erythromycin Drug Allergy 5 [facility] (1 source) Penicillin Drug Allergy 5 [facility] Medications Current Medications Medication Drug [...] 12:00am gerd Complies with drug therapy levonorgestrel 0.254197 mg/hr intrauterine system (20 sources) Progestin, Progestin-containi [...] 06-20-2025 Episodic Other aftercare (1 source) 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, [address] Wound Cultureon 08-19-2025 WC R MEDIAL BREAST AND L MEDIAL BREAST Further studies to follow. Wound Culture Mixed Gram Positive Organisms Amount Growth 2+ Normal [facility] Comment on above: Performed By: #### M 100.3000, L100.0100, L3890.6301, L3890.6102, M100.2000, L500.3400, L3890.6202 #### [facility] [address] [place], [place], [id number] CBC W/Diff, Automatedon 10- Absolute Lymph 4.06 X10 3/uL Normal 0.83-4.51 [facility] Comment on above: Performed By: #### M 100.3000, L100.0100, L3890.6301, L3890.6102, M100.2000, L500.3400, L3890.6202 #### [facility] [address] [place], [address] Absolute Neut 9.1 X10 3/uL High 2.0-7.7 [facility] Comment on above: Performed By: #### M 100.3000, L100.0100, L3890.6301, L3890.6102, M100.2000, L500.3400, L3890.6202 #### [facility] [address] [place], [address] Basophils/100 WBC (Bld) 0.7 % Normal 0-[address] [facility] Comment on above: Performed By: #### M 100.3000, L100.0100, L3890.6301, L3890.6102, M100.2000, L500.3400, L3890.6202 #### [facility] [address] [place], [address] Eosinophils/100 WBC (Bld) 1.7 % Normal 0-5 [facility] Comment on above: Performed By: #### M 100.3000, L100.0100, L3890.6301, L3890.6102, M100.2000, L500.3400, L3890.6202 #### [facility] [address] [place], [address] Erythrocyte distribution width (RBC) [Ratio] 13.7 % Normal 11.6-14.6 [facility] Comment on above: Performed By: #### M 100.3000, L100.0100, L3890.6301, L3890.6102, M100.2000, L500.3400, L3890.6202 #### [facility] [address] [place], [address] Hematocrit (Bld) [Volume fraction] 41.1 % Normal 37-47 [facility] Comment on above: Performed By: #### M 100.3000, L100.0100, L3890.6301, L3890.6102, M100.2000, L500.3400, L3890.6202 #### [facility] [address] [place], [address] Hemoglobin (Bld) [Mass/Vol] 14.5 g/dL Normal 12.0-15.0 [facility] Comment on above: Performed By: #### M 100.3000, L100.0100, L3890.6301, L3890.6102, M100.2000, L500.3400, L3890.6202 #### [facility] [address] [place], [address] IG% 1.300 High 0.0-0.9 [facility] Comment on above: Result Comment: IG% - Immature Granulocytes (promyelocytes, myelocytes and metamyelocytes) > 1% indicates that a LEFT SHIFT is Present. Performed By: #### M 100.3000, L100.0100, L3890.6301, L3890.6102, M100.2000, L500.3400, L3890.6202 #### [facility] [address] [place], [address] Lymphocytes/100 WBC (Bld) 27.0 % Normal 19-41 [facility] Comment on above: Performed By: #### M 100.3000, L100.0100, L3890.6301, L3890.6102, M100.2000, L500.3400, L3890.6202 #### [facility] [address] [place], [address] MCH (RBC) [Entitic mass] 29.5 pg Normal 27.0-32.0 [facility] Comment on above: Performed By: #### M 100.3000, L100.0100, L3890.6301, L3890.6102, M100.2000, L500.3400, L3890.6202 #### [facility] [address] [place], [address] MCHC (RBC) [Mass/Vol] 35.3 g/dL Normal 32-36 [facility] Comment on above: Performed By: #### M 100.3000, L100.0100, L3890.6301, L3890.6102, M100.2000, L500.3400, L3890.6202 #### [facility] [address] [place], [address] MCV (RBC) [Entitic vol] 83.5 fL Normal 81-[address] [facility] Comment on above: Performed By: #### M 100.3000, L100.0100, L3890.6301, L3890.6102, M100.2000, L500.3400, L3890.6202 #### [facility] [address] [place], [address] Monocytes/100 WBC (Bld) 8.7 % Normal 0-10 [facility] Comment on above: Performed By: #### M 100.3000, L100.0100, L3890.6301, L3890.6102, M100.2000, L500.3400, L3890.6202 #### [facility] [address] [place], [address] Neutrophils/100 WBC (Bld) 60.6 % Normal 47-70 [facility] Comment on above: Performed By: #### M 100.3000, L100.0100, L3890.6301, L3890.6102, M100.2000, L500.3400, L3890.6202 #### [facility] [address] [place], [address] Nucleated RBC (Bld) [#/Vol] 0 10*3/uL Normal 0-5 [facility] Comment on above: Performed By: #### M 100.3000, L100.0100, L3890.6301, L3890.6102, M100.2000, L500.3400, L3890.6202 #### [facility] [address] [place], [address] Platelet mean volume (Bld) [Entitic vol] 9.7 fL Normal 6.2-12.0 [facility] Comment on above: Performed By: #### M 100.3000, L100.0100, L3890.6301, L3890.6102, M100.2000, L500.3400, L3890.6202 #### [facility] [address] [place], [address] Platelets (Bld) [#/Vol] 326 10*3/uL Normal 150-450 [facility] Comment on above: Performed By: #### M 100.3000, L100.0100, L3890.6301, L3890.6102, M100.2000, L500.3400, L3890.6202 #### [facility] [address] [place], [address] RBC (Bld) [#/Vol] 4.92 10*6/uL Normal 4.2-5.4 [facility] Comment on above: Performed By: #### M 100.3000, L100.0100, L3890.6301, L3890.6102, M100.2000, L500.3400, L3890.6202 #### [facility] [address] [place], [address] RDW SD 41.7 fl Normal 35.1-43.9 [facility] Comment on above: Performed By: #### M 100.3000, L100.0100, L3890.6301, L3890.6102, M100.1999, L500.3400, L3890.6202 #### [facility] [address] [place], [address] WBC (Bld) [#/Vol] 15.0 10*3/uL High 4.4-11.0 [facility] Comment on above: Performed By: #### M 100.3000, L100.0100, L3890.6301, L3890.6102, M100.1999, L500.3400, L3890.6202 #### [facility] [address] [place], [address] Hepatitis B Surface Antibody on 08-18-2025 HEP B Surf Ab Non-Reactive Normal [facility] Comment on above: Result Comment: <8.5 mIU/mL: Non-Reactive 8.5<= x <11.5 mIU/mL: Indeterminate >=11.5 mIU/mL: Reactive Non Reactive: Inconsistent with immunity less than <10 mIU/mL Reactive: Consistent with immunity greater than or equal to 10 mIU/mL Performed By: #### M 100.3000, L100.0100, L3890.6301, L3890.6102, M100.1999, L500.3400, L3890.6202 #### [facility] [address] [place], [address] Hepatitis C Antibodyon 08-18 Hepatitis C Ab Non-Reactive Normal Nonreactive [facility] Comment on above: Result Comment: Reac tive: Presumptive evidence of antibodies to HCV. Follow CDC recommendations for supplemental testing. Non-Reactive: Antibodies to HCV were not detected; does not exclude the possibility of exposure to HCV Reactive Results are presumptive evidence of antibodies to HCV. Follow CDC recommendations for supplemental testing. Order confirmation testing: HCV Quant by PCR testing - HCVPCR #[id number] Non Reactive: < 0.8 Equivocal: >/= 0.8 to < 1.0 Reactive: >/= 1.0 The CDC requires that a reactive/equivocal HCV antibody result be sent out for confirmation. HCV Quant by PCR testing. Performed By: #### M 100.3000, L100.0100, L3890.6301, L3890.6102, M100.2000, L500.3400, L3890.6202 #### [facility] [address] [place], [address] L3890.6102on 08-18-2025 HEP B Surf Ag Non-Reactive Normal Nonreactive [facility] Comment on above: Result Comment: Reac tive: Presumptive evidence of HBV. Repeatedly reactive samples must be confirmed using a neutralization test ([employer] HBsAg Confirmatory Test) Non-Reactive: HBsAg not detected; does not exclude the possibility of exposure to HBV Performed By: #### M 100.3000, L100.0100, L3890.6301, L3890.6102, M100.2000, L500.3400, L3890.6202 #### [facility] [address] [place], [address] Liver Profileon 08-18-2025 Albumin [Mass/Vol] 4.4 g/dL Normal 3.5-5.0 [facility] Comment on above: Order Comment: R MED IAL BREAST AND L MEDIAL BREAST Result Comment: AMENDED REPORT 08/18/25 173 ALB previously reported as: 4.4 g/dL Performed By: #### M 100.3000, L100.0100, L3890.6301, L3890.6102, M100.2000, L500.3400, L3890.6202 #### [facility] [address] [place], [address] ALK PHOS 68 U/L Normal 35-104 [facility] Comment on above: Order Comment: R MED IAL BREAST AND L MEDIAL BREAST Performed By: #### M 100.3000, L100.0100, L3890.6301, L3890.6102, M100.2000, L500.3400, L3890.6202 #### [facility] [address] [place], [address] ALT [Catalytic activity/Vol] 25 U/L Normal <=34 [facility] Comment on above: Order Comment: R MED IAL BREAST AND L MEDIAL BREAST Result Comment: AMENDED REPORT 08/18/251731 ALT previously reported as: 25 U/L Performed By: #### M 100.3000, L100.0100, L3890.6301, L3890.6102, M100.2000, L500.3400, L3890.6202 #### [facility] [address] [place], [address] AST [Catalytic activity/Vol] 21 U/L Normal <=31 [facility] Comment on above: Order Comment: R MED IAL BREAST AND L MEDIAL BREAST Result Comment: AMENDED REPORT 08/18/251731 AST previously reported as: 21 U/L Performed By: #### M 100.3000, L100.0100, L3890.6301, L3890.6102, M100.2000, L500.3400, L3890.6202 #### [facility] [address] [place], [place], [address] Bilirubin [Mass/Vol] 0.72 mg/dL Normal 0.00-1.30 [facility] Comment on above: Order Comment: R MED IAL BREAST AND L MEDIAL BREAST Result Comment: AMENDED REPORT 08/18/251731 T BILI previously reported as: 0.72 mg/dL Performed By: #### M 100.3000, L100.0100, L3890.6301, L3890.6102, M100.2000, L500.3400, L3890.6202 #### [facility] [address] [place], [place], [address] Bilirubin.direct [Mass/Vol] 0.24 mg/dL Normal 0.00-0.30 [facility] Comment on above: Order Comment: R MED IAL BREAST AND L MEDIAL BREAST Performed By: #### M 100.3000, L100.0100, L3890.6301, L3890.6102, M100.2000, L500.3400, L3890.6202 #### [facility] [address] [place], [address] Globulin (S) [Mass/Vol] 2.0 g/dL Low 2.2-4.[address] [facility] Comment on above: Order Comment: R MED IAL BREAST AND L MEDIAL BREAST Result Comment: AMENDED REPORT 08/18/251731 GLOB previously reported as: 2.0 L g/dL Performed By: #### M 100.3000, L100.0100, L3890.6301, L3890.6102, M100.2000, L500.3400, L3890.6202 #### [facility] [address] [place], [address] T PROT 6.4 g/dL Normal 5.9-8.4 [facility] Comment on above: Order Comment: R MED IAL BREAST AND L MEDIAL BREAST Result Comment: AMENDED REPORT 08/18/251731 T PROT previously reported as: 6.4 g/dL Performed By: #### M 100.3000, L100.0100, L3890.6301, L3890.6102, M100.2000, L500.3400, L3890.6202 #### [facility] [address] [place], [address] Plastic Surgery Visit Report on 08-14-2025 Plastic Surgery Visit Report [facility] Surgery [address] [place] [address] OFFICE VISIT Date of Service: 08/14/25 MR#: [id number] Acct: [id number] Name: PATRIA JOHNSON Rep #: [id number] : 1970 Provider: BENJIE Torres Age/Sex: 54/F Location: [facility] Status: Signed Intake Vital Signs 3 07/11/25 [...] skin resection and axillary/lateral chest liposuction (CPT: 36630 x 2 with 50 modifier) pediatric intensive physician: Yes Recorder Of Deeds: bau Tasks completed by clinical nursing assistant: Closing and Retracting Type of Anesthesia: General/Supplemental [...] blistering n (more content not included)... Normal [facility] Acid Fast Bacillus Cultureon 08-12-2025 tAFBC TESTING PERFORMED AT [facility]. ORIGINAL REPORT ON FILE IN LAB CONTAINS ADDITIONAL TEST SITE INFORMATION. Culture, Acid Fast NO ACID-FAST BACILLI ISOLATED AFTER 6 WEEKS. [facility] Comment on above: Performed By: #### M 100.3000, L100.0100, L3890.6301, L3890.6102, M100.2000, L500.3400, L3890.6202 #### [facility] [place], [address] Acid Fast Bacillus Smear/Flu oron 08-12-2025 tafb TESTING PERFORMED AT [facility]. ORIGINAL REPORT ON FILE IN LAB CONTAINS ADDITIONAL TEST SITE INFORMATION. Smear, Acid Fast Tissue Grinding Smear: Negative Normal [facility] Comment on above: Performed By: #### M 100.3000, L100.0100, L3890.6301, L3890.6102, M100.2000, L500.3400, L3890.6202 #### [facility] [address] [place], [address] Culture, Fungus 8482on 08-12 CUF TESTING PERFORMED AT [facility]. ORIGINAL REPORT ON FILE IN LAB CONTAINS ADDITIONAL TEST SITE INFORMATION. CUF No yeast or mold isolated after 4 weeks. Normal [facility] Comment on above: Performed By: #### M 100.3000, L100.0100, L3890.6301, L3890.6102, M100.2000, L500.3400, L3890.6202 #### [facility] [address] [place], [address] Plastic Surgery Visit Report on 07-24-2025 Plastic Surgery Visit Report [facility] [address] [place] [address] OFFICE VISIT Date of Service: 07/24/25 MR#: [id number] Acct: [id number] Name: PATRIA JOHNSON Rep #: [id number] : 1970 Provider: BENJIE Torres Age/Sex: 54/F Location: [facility] Status: Signed Intake Vital Signs 3 07/11/25 [...] skin resection and axillary/lateral chest liposuction (CPT: 53522 x 2 with 50 modifier) pediatric intensive physician: Yes Recorder Of Deeds: martínez Tasks completed by clinical nursing assistant: Closing and Retracting Type of Anesthesia: General/Supplemental [...] post breast reduction Z98.890 Pyoderma gangrenosum L88 [facility] Medical History (Updated 07/24/25 @ 13:05 by BENJIE Gaffney) Pyoderma gangrenosum Depression Anxiety Diabetes Arthritis Anemia Easy bruising History of diverticulitis History of IBS Non-smoker Shortness of breath on exertion Contraceptive management GERD (gastroesophageal reflux disease) Vitamin D deficiency Hyperhidrosis Hypertension Surgical (more content not included)... Normal [facility] Plastic Surgery Visit Report on 07-11-2025 Plastic Surgery Visit Report [facility] [address], [address] [place] [address] OFFICE VISIT Date of Service: 07/11/25 MR#: [id number] Acct: [id number] Name: PATRIA JOHNSON Rep #: [id number] : 1970 Provider: BENJIE Torres Age/Sex: 54/F Location: [facility] Status: Signed Pt seen evaluated w/IRIS. I [...] PRN PRN dyspep jaclyn 05/05/25 06/13/25 History doxycycline hyclate 100 mg [...] Op Diagnoses Status post breast reduction Z98.890 [facility] Medical History Depression Anxiety Diabetes Arthritis Anemia [...] do yo (more content not included)... Normal [facility] Culture, Anaerobic Any Sourc kandy 06-26-2025 CUAN No anaerobic bacteria isolated. Normal [facility] Comment on above: Performed By: #### M 100.3000, L100.0100, L3890.6301, L3890.6102, M100.2000, L500.3400, L3890.6202 #### [facility] [address] [place], [place], [id number] Wound Cultureon 06-26-2025 #2 Organism is too [...] S Vancomycin Islt LASHELL <=0.5 S Normal [facility] Comment on above: Performed By: #### M 100.3000, L100.0100, L3890.6301, L3890.6102, M100.2000, L500.3400, L3890.6202 #### [facility] [address] [place], [address] Gram Stainon 06-24-2025 GS Positive Normal [facility] Comment on above: Performed By: #### M 100.3000, L100.0100, L3890.6301, L3890.6102, M100.2000, L500.3400, L3890.6202 #### [facility] [address] [place], [address] Anaerobic cultureOrdered By: Ramón Pickering on 06-23-2025 Bacteria identified Anaer cx Nom (Unsp spec) No anaerobic bacteria isolated. [facility] Gram stainOrdered By: Ramón Pickering on 06-23-2025 Microscopic observation Gram stain Nom (Unsp spec) [facility] Routine wound cultureOrdered By: Ramón Pickering on 06-23-2025 Microbial culture, routine Staphylococcus haemolyticus Abnormal [facility] Plastic Surgery Visit Report on 06-20-2025 Plastic Surgery Visit Report [facility] [address] [place], [place] [address] OFFICE VISIT Date of Service: 06/20/25 MR#: [id number] Acct: [id number] Name: PATRIA JOHNSON Rep #: [id number] : 1970 Provider: Dr. Yannick Bourne MD Age/Sex: 54/F Location: [facility] Status: Signed Intake Vital Signs 3 06/13/25 [...] skin resection and axillary/lateral chest liposuction (CPT: 38119 x 2 with 50 modifier) 20 June 2025: Patient here for follow up for wound care. Biopsies were nonspecific for pyoderma. Patient has been doing wet-to-dry dressings twice daily. 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 Underlying granulation tissue forming and wound filling in Coding Level of Care Code Global Post Op Diagnoses Status post breast reduction Z98.890 [facility] Medical History Depression Anxiety Diabetes Arthritis Anemia [...] nipple ( (more content not included)... Normal [facility] Surgical pathology reportOrd ered By: Debbie Mcarthur on 06-19-2025 Surgical pathology study [facility] Plastic Surgery Visit Report on 06-13-2025 Plastic Surgery Visit Report [facility]astic Reconstructive Surgery [address] [place], [place] [address] OFFICE VISIT Date of Service: 06/13/25 MR#: [id number] Acct: [id number] Name: PATRIA JOHNSON Rep #: [id number] : 1970 Provider: Dr. Yannick Bourne MD Age/Sex: 54/F Location: [facility] Status: Signed Intake Vital Signs 3 05/30/25 [...] Rx Nurse's Note: 1% lidocaine w/ epi [facility] [place] [id number] lot [id number] exp Subjective Details: Doing well overall with dressing changes. 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 Underlying granulation tissue forming and wound filling in Coding Level of Care Code Global Post Op Diagnoses Status post breast reduction Z98.890 [facility] Medical History Depression Anxiety Diabetes Arthritis Anemia [...] 06/15/25918 Date (more content not included)... Normal [facility] Surgery Specimen Level Leon 06-13-2025 Surgery Specimen Level IV Patient Age/Sex Location Account Attending Physician PATRIA JOHNSON 54/F [facility] [id number] Dr. Yannick Bourne MD Specimen: [id number] Received: 06/13/25 Status: LIV Du Num: [id number] Spec Type: BREAST BX Subm Dr: Dr. [...] was open with approximately half formalin volume. (IL) [place] 06/13/2025 Patient Age/Sex Location Account Attending Physician PATRIA JOHNSON 54/F [facility] [id number] Dr. Yannick Bourne MD CPT:97674v3 Patient Age/Sex Location Account Attending Physician PATRIA JOHNSON 54/F [facility] [id number] Dr. Yannick Bourne MD Signed (signature on file) Dr. Debbie Mcarthur MD 06/19/25 0948 Normal [facility] Comment on above: Performed By: #### M 100.3000, L100.0100, L3890.4951, L3890.6102, M100.2000, L500.3400, L3890.6202 #### [facility] [address] [place], [address] Plastic Surgery Visit Report on 06-05-2025 Plastic Surgery Visit Report [facility] Plastic Reconstructive Surgery [address] [place] [address] OFFICE VISIT Date of Service: 06/05/25 MR#: [id number] Acct: [id number] Name: PATRIA JOHNSON Rep #: [id number] : 1970 Provider: Dr. 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 Right anterior vertical incision breast wound healing well with minimal necrotic debris today, cleaned in clinic today. Underlying granulation tissue forming and wound filling in Dressings reapplied Coding Level of Care Code Global Post Op Diagnoses Status post breast reduction Z98.890 [facility] Medical History Depression Anxiety Diabetes Arthritis Anemia [...] check 06/05/25 1431 Date [facility] Date (if applicable) CC: Normal [facility] Culture, Blood (WB)on 2024 [facility] Blood cultures x2, from two different sites No growth in 5 days. Normal [facility] Comment on above: Performed By: #### M 100.3000, L100.0100, L3890.6301, L3890.6102, M100.2000, L500.3400, L3890.6202 #### [facility] [address] [place], [address] Plastic Surgery Visit Report on 05-30-2025 Plastic Surgery Visit Report [facility] Plastic Reconstructive Surgery [address], [address] [place] [address] OFFICE VISIT Date of Service: 05/30/25 MR#: [id number] Acct: [id number] Name: PATRAI JOHNSON Rep #: [id number] : 1970 Provider: Dr. 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 Good breast shape overall Coding Level of Care Code Global Post Op Diagnoses Postoperative wound cellulitis T81.49XA Status post breast reduction Z98.890 [facility] Medical History Depression Anxiety Diabetes Arthritis Anemia [...] Pena Signature: Date (if applicable) CC: Normal [facility] CBC W/Diff, Automatedon - Absolute Neut Normal 2.0-7.7 [facility] Comment on above: Result Comment: Canc elled via OM: Order cancelled - Patient discharged Performed By: #### M 100.3000, L100.0100, L3890.6301, L3890.6102, M100.2000, L500.3400, L3890.6202 #### [facility] [address] [place], [address] HCT Normal 37-47 [facility] Comment on above: Result Comment: Canc elled via OM: Order cancelled - Patient discharged Performed By: #### M 100.3000, L100.0100, L3890.6301, L3890.6102, M100.2000, L500.3400, L3890.6202 #### [facility] [address] [place], [address] HGB Normal 12.0-15.0 [facility] Comment on above: Result Comment: Canc elled via OM: Order cancelled - Patient discharged Performed By: #### M 100.3000, L100.0100, L3890.6301, L3890.6102, M100.2000, L500.3400, L3890.6202 #### [facility] [address] [place], [address] MCH Normal 27.0-32.0 [facility] Comment on above: Result Comment: Canc elled via OM: Order cancelled - Patient discharged Performed By: #### M 100.3000, L100.0100, L3890.6301, L3890.6102, M100.2000, L500.3400, L3890.6202 #### [facility] [address] [place], [address] MCHC Normal 32-36 [facility] Comment on above: Result Comment: Canc elled via OM: Order cancelled - Patient discharged Performed By: #### M 100.3000, L100.0100, L3890.6301, L3890.6102, M100.2000, L500.3400, L3890.6202 #### [facility] [address] [place], [address] MCV Normal 81-99 [facility] Comment on above: Result Comment: Canc elled via OM: Order cancelled - Patient discharged Performed By: #### M 100.3000, L100.0100, L3890.6301, L3890.6102, M100.2000, L500.3400, L3890.6202 #### [facility] [address] [place], [address] NEUT% Normal 47-70 [facility] Comment on above: Result Comment: Canc elled via OM: Order cancelled - Patient discharged Performed By: #### M 100.3000, L100.0100, L3890.6301, L3890.6102, M100.2000, L500.3400, L3890.6202 #### [facility] [address] [place], [address] PLT Normal 150-450 [facility] Comment on above: Result Comment: Canc elled via OM: Order cancelled - Patient discharged Performed By: #### M 100.3000, L100.0100, L3890.6301, L3890.6102, M100.2000, L500.3400, L3890.6202 #### [facility] [address] [place], [address] RBC Normal 4.2-5.4 [facility] Comment on above: Result Comment: Canc elled via OM: Order cancelled - Patient discharged Performed By: #### M 100.3000, L100.0100, L3890.6301, L3890.6102, M100.2000, L500.3400, L3890.6202 #### [facility] [address] [place], [address] RDW CV Normal 11.6-14.6 [facility] Comment on above: Result Comment: Canc elled via OM: Order cancelled - Patient discharged Performed By: #### M 100.3000, L100.0100, L3890.6301, L3890.6102, M100.2000, L500.3400, L3890.6202 #### [facility] [address] [place], [address] RDW SD Normal 35.1-43.9 [facility] Comment on above: Result Comment: Canc elled via OM: Order cancelled - Patient discharged Performed By: #### M 100.3000, L100.0100, L3890.6301, L3890.6102, M100.2000, L500.3400, L3890.6202 #### [facility] [address] [place], [address] WBC Normal 4.4-11.0 [facility] Comment on above: Result Comment: Canc elled via OM: Order cancelled - Patient discharged Performed By: #### M 100.3000, L100.0100, L3890.6301, L3890.6102, M100.1999, L500.3400, L3890.6202 #### [facility] [address] [place], [address] Anion gap in Serum or Plasma Ordered By: Yannick Bourne on 05-28-2025 Anion gap [Moles/Vol] 12 mmol/L 5-15 [facility] BUN/creatinine ratioOrdered By: Yannick Bourne on 05-28-2025 Urea nitrogen/Creatinine [Mass ratio] 14.7 mg/mg 10-20 [facility] Bilirubin, totalOrdered By: Yannick Bourne on 05-28-2025 Bilirubin [Mass/Vol] 0.52 mg/dL 0.00-1.30 [facility] Carbon dioxide, total [Moles /volume] in Central venous bloodOrdered By: Yannick Bourne on 05-28-2025 CO2 [Moles/Vol] 25.7 mmol/L 21.0-32.0 [facility] Chloride assayOrdered By: Mary Bourne on 05-28-2025 Chloride [Moles/Vol] 104 mmol/L 98-108 [facility] Comprehensive Metabolic Prof ilon 05-28-2025 Albumin [Mass/Vol] 3.7 g/dL Normal 3.5-5.0 [facility] Comment on above: Performed By: #### L 500.4050 #### [facility] [address] [place], [address] Albumin/Globulin [Mass ratio] 1.7 {ratio} Normal 0.9-2.4 [facility] Comment on above: Performed By: #### L 500.4050 #### [facility] [address] [place], [address] ALK PHOS 70 U/L Normal 35-104 [facility] Comment on above: Performed By: #### L 500.4050 #### [facility] [address] [place], [address] ALT [Catalytic activity/Vol] 13 U/L Normal <=34 [facility] Comment on above: Performed By: #### L 500.4050 #### [facility] [address] [place], [address] AST [Catalytic activity/Vol] 16 U/L Normal <=31 [facility] Comment on above: Performed By: #### L 500.4050 #### [facility] [address] [place], [address] Bilirubin [Mass/Vol] 0.52 mg/dL Normal 0.00-1.30 [facility] Comment on above: Performed By: #### L 500.4050 #### [facility] [address] [place], [address] BUN/CRE 14.7 RATIO Normal 10-20 [facility] Comment on above: Performed By: #### L 500.4050 #### [facility] [address] [place], [address] Calcium [Mass/Vol] 8.6 mg/dL Normal 7.6-11.0 [facility] Comment on above: Performed By: #### L 500.4050 #### [facility] [address] [place], [address] Chloride [Moles/Vol] 104 mmol/L Normal 98-108 [facility] Comment on above: Performed By: #### L 500.4050 #### [facility] [address] [place], [address] CO2 [Moles/Vol] 25.7 mmol/L Normal 21.0-32.0 [facility] Comment on above: Performed By: #### L 500.4050 #### [facility] [address] [place], [address] Creatinine [Mass/Vol] 0.82 mg/dL Normal 0.70-1.20 [facility] Comment on above: Performed By: #### L 500.4050 #### [facility] [address] [place], [address] ECRCL 95.67 ml/min Normal 50-250 [facility] Comment on above: Performed By: #### L 500.4050 #### [facility] [address] [place], [address] GAP 12 Normal 5-15 [facility] Comment on above: Performed By: #### L 500.4050 #### [facility] [address] [place], [address] GFR/1.73 sq M.predicted among non-blacks MDRD (S/P/Bld) [Vol rate/Area] 86 mL/min/{1.73_m2} Normal >60 [facility] Comment on above: Result Comment: mL/m in/1.73m2 CKD-EPI Creatinine Equation (2020) Performed By: #### L 500.4050 #### [facility] [address] [place], [address] Globulin (S) [Mass/Vol] 2.2 g/dL Normal 2.2-4.2 [facility] Comment on above: Performed By: #### L 500.4050 #### [facility] [address] [place], [address] Glucose [Mass/Vol] 100 mg/dL High 70-99 [facility] Comment on above: Performed By: #### L 500.4050 #### [facility] [address] [place], [address] Potassium [Moles/Vol] 3.3 mmol/L Normal 3.3-5.1 [facility] Comment on above: Performed By: #### L 500.4050 #### [facility] [address] [place], [address] Sodium [Moles/Vol] 142 mmol/L Normal 133-145 [facility] Comment on above: Performed By: #### L 500.4050 #### [facility] [address] [place], [address] T PROT 5.9 g/dL Normal 5.9-8.4 [facility] Comment on above: Performed By: #### L 500.4050 #### [facility] [address] [place], [address] Urea nitrogen [Mass/Vol] 12 mg/dL Normal 4-19 [facility] Comment on above: Performed By: #### L 500.4050 #### [facility] [address] [place], [address] Glomerular filtration rate ( GFR) estimation/1.73 sq m using serum, plasma, or whole bOrdered By: Yannick Bourne on 05-28-2025 GFR/1.73 sq M.predicted among non-blacks MDRD (S/P/Bld) [Vol rate/Area] 86 mL/min/{1.73_m2} >60 [facility] Comment on above: mL/min/1.73m2 CKD-EP I Creatinine Equation (2020) Laboratory - Chemistry and C hemistry - challengeOrdered By: Yannick Bourne on 05-28-2025 AST [Catalytic activity/Vol] 16 U/L <32 [facility] Potassium measurement (mass/ volume)Ordered By: Yannick Bourne on 05-28-2025 Potassium (Unsp spec) [Mass/Vol] 3.3 mmol/L 3.3-5.1 [facility] Serum creatinine measurement (mass/volume)Ordered By: Yannick Bourne on 05-28-2025 Creatinine [Mass/Vol] 0.82 mg/dL 0.70-1.20 [facility] Serum globulin measurementOr dered By: Yannick Bourne on 05-28-2025 Globulin (S) [Mass/Vol] 2.2 g/dL 2.2-4.[address] [facility] Serum glucose measurement (m ass/volume)Ordered By: Yannick Bourne on 05-28-2025 Glucose [Mass/Vol] 100 mg/dL High 70-99 [facility] Serum or plasma alanine coffey otransferase (ALT) measurementOrdered By: Yannick Bourne on 05-28-2025 ALT [Catalytic activity/Vol] 13 U/L <35 [facility] Serum or plasma albumin madyson urement (mass/volume)Ordered By: Yannick Bourne on 05-28-2025 Albumin [Mass/Vol] 3.7 g/dL 3.5-5.0 [facility] Serum or plasma albumin/glob ulin mass ratioOrdered By: Yannick Bourne on 05-28-2025 Albumin/Globulin [Mass ratio] 1.7 {ratio} 0.9-2.4 [facility] Serum or plasma alkaline rolando sphatase measurementOrdered By: Yannick Bourne on 05-28-2025 ALP [Catalytic activity/Vol] 70 U/L 35-104 [facility] Serum or plasma calcium madyson urement (mass/volume)Ordered By: Yannick Bourne on 05-28-2025 Calcium [Mass/Vol] 8.6 mg/dL 7.6-11.0 [facility] Serum or plasma urea nitroge n measurement (mass/volume)Ordered By: Yannick Bourne on 05-28-2025 Urea nitrogen [Mass/Vol] 12 mg/dL 4-19 [facility] Sodium levelOrdered By: Lei Bourne on 05-28-2025 Sodium [Moles/Vol] 142 mmol/L 133-145 [facility] Total proteinOrdered By: Real Bourne on 05-28-2025 Protein [Mass/Vol] 5.9 g/dL 5.9-8.4 [facility] Absolute lymphocyte countOrd ered By: ED PROVIDER on 05-26-2025 Lymphocytes Auto (Unsp spec) [#/Vol] 3.21 10*3/uL 0.83-4.51 [facility] Absolute neutrophil countOrd ered By: ED PROVIDER on 05-26-2025 Neutrophils (Bld) [#/Vol] 4.7 10*3/uL 2.0-7.7 [facility] Anion gap in Serum or Plasma Ordered By: ED PROVIDER on 05-26-2025 Anion gap [Moles/Vol] 13 mmol/L 5-15 [facility] Automated lymphocyte count a s percentage of total leukocytesOrdered By: ED PROVIDER on 05-26-2025 Lymphocytes/100 WBC Auto (Unsp spec) 34.1 % 19-41 [facility] BUN/creatinine ratioOrdered By: ED PROVIDER on 05-26-2025 Urea nitrogen/Creatinine [Mass ratio] 14.2 mg/mg 10-20 [facility] Basophil percentageOrdered B y: ED PROVIDER on 05-26-2025 Basophils/100 WBC (Bld) 0.7 % 0-[address] [facility] Bilirubin, totalOrdered By: ED PROVIDER on 05-26-2025 Bilirubin [Mass/Vol] 0.50 mg/dL 0.00-1.30 [facility] Blood cultureOrdered By: Kali Calhoun on 05-26-2025 Bacteria identified Cx Nom (Bld) No growth in 5 days. [facility] Blood cultureOrdered By: ED PROVIDER on 05-26-2025 Bacteria identified Cx Nom (Bld) No growth in 5 days. [facility] CBC W/Diff, Automatedon 04-30 Absolute Lymph 3.21 X10 3/uL Normal 0.83-4.51 [facility] Comment on above: Performed By: #### L 500.4050, M200.1000, L100.0100, L503.6005 #### [facility] [address] [place], [address] Absolute Neut 4.7 X10 3/uL Normal 2.0-7.7 [facility] Comment on above: Performed By: #### L 500.4050, M200.1000, L100.0100, L503.6005 #### [facility] [address] [place], [address] Basophils/100 WBC (Bld) 0.7 % Normal 0-[address] [facility] Comment on above: Performed By: #### L 500.4050, M200.1000, L100.0100, L503.6005 #### [facility] [address] [place], [address] Eosinophils/100 WBC (Bld) 5.3 % High 0-5 [facility] Comment on above: Performed By: #### L 500.4050, M200.1000, L100.0100, L503.6005 #### [facility] [address] [place], [address] Erythrocyte distribution width (RBC) [Ratio] 13.4 % Normal 11.6-14.6 [facility] Comment on above: Performed By: #### L 500.4050, M200.1000, L100.0100, L503.6005 #### [facility] [address] [place], [address] Hematocrit (Bld) [Volume fraction] 38.4 % Normal 37-47 [facility] Comment on above: Performed By: #### L 500.4050, M200.1000, L100.0100, L503.6005 #### [facility] [address] [place], [address] Hemoglobin (Bld) [Mass/Vol] 13.0 g/dL Normal 12.0-15.0 [facility] Comment on above: Performed By: #### L 500.4050, M200.1000, L100.0100, L503.6005 #### [facility] [address] [place], [address] IG% 0.600 Normal 0.0-0.9 [facility] Comment on above: Result Comment: IG% - Immature Granulocytes (promyelocytes, myelocytes and metamyelocytes) > 1% indicates that a LEFT SHIFT is Present. Performed By: #### L 500.4050, M200.1000, L100.0100, L503.6005 #### [facility] [address] [place], [address] Lymphocytes/100 WBC (Bld) 34.1 % Normal 19-41 [facility] Comment on above: Performed By: #### L 500.4050, M200.1000, L100.0100, L503.6005 #### [facility] [address] [place], [address] MCH (RBC) [Entitic mass] 29.2 pg Normal 27.0-32.0 [facility] Comment on above: Performed By: #### L 500.4050, M200.1000, L100.0100, L503.6005 #### [facility] [address] [place], [address] MCHC (RBC) [Mass/Vol] 33.9 g/dL Normal 32-36 [facility] Comment on above: Performed By: #### L 500.4050, M200.1000, L100.0100, L503.6005 #### [facility] [address] [place], [address] MCV (RBC) [Entitic vol] 86.3 fL Normal 81-[address] [facility] Comment on above: Performed By: #### L 500.4050, M200.1000, L100.0100, L503.6005 #### [facility] [address] [place], [address] Monocytes/100 WBC (Bld) 8.9 % Normal 0-[address] [facility] Comment on above: Performed By: #### L 500.4050, M200.1000, L100.0100, L503.6005 #### [facility] [address] [place], [address] Neutrophils/100 WBC (Bld) 50.4 % Normal 47-70 [facility] Comment on above: Performed By: #### L 500.4050, M200.1000, L100.0100, L503.6005 #### [facility] [address] [place], [address] Nucleated RBC (Bld) [#/Vol] 0 10*3/uL Normal 0-5 [facility] Comment on above: Performed By: #### L 500.4050, M200.1000, L100.0100, L503.6005 #### [facility] [address] [place], [address] Platelet mean volume (Bld) [Entitic vol] 9.5 fL Normal 6.2-12.0 [facility] Comment on above: Performed By: #### L 500.4050, M200.1000, L100.0100, L503.6005 #### [facility] [address] [place], [address] Platelets (Bld) [#/Vol] 395 10*3/uL Normal 150-450 [facility] Comment on above: Performed By: #### L 500.4050, M200.1000, L100.0100, L503.6005 #### [facility] [address] [place], [address] RBC (Bld) [#/Vol] 4.45 10*6/uL Normal 4.2-5.4 [facility] Comment on above: Performed By: #### L 500.4050, M200.1000, L100.0100, L503.6005 #### [facility] [address] [place], [address] RDW SD 41.6 fl Normal 35.1-43.9 [facility] Comment on above: Performed By: #### L 500.4050, M200.1000, L100.0100, L503.6005 #### [facility] [address] [place], [address] WBC (Bld) [#/Vol] 9.4 10*3/uL Normal 4.4-11.0 [facility] Comment on above: Performed By: #### L 500.4050, M200.1000, L100.0100, L503.6005 #### [facility] [address] [place], [address] Carbon dioxide, total [Moles /volume] in Central venous bloodOrdered By: ED PROVIDER on 05-26-2025 CO2 [Moles/Vol] 24.6 mmol/L 21.0-32.0 [facility] Chloride assayOrdered By: ED PROVIDER on 05-26-2025 Chloride [Moles/Vol] 105 mmol/L 98-108 [facility] Comprehensive Metabolic Prof ilon 05-26-2025 Albumin [Mass/Vol] 3.9 g/dL Normal 3.5-5.0 [facility] Comment on above: Performed By: #### M 100.3000, L100.0100, L3890.6301, L3890.6102, M100.2000, L500.3400, L3890.6202 #### [facility] [address] [place], [address] Albumin/Globulin [Mass ratio] 1.5 {ratio} Normal 0.9-2.4 [facility] Comment on above: Performed By: #### M 100.3000, L100.0100, L3890.6301, L3890.6102, M100.2000, L500.3400, L3890.6202 #### [facility] [address] [place], [address] ALK PHOS 72 U/L Normal 35-104 [facility] Comment on above: Performed By: #### M 100.3000, L100.0100, L3890.6301, L3890.6102, M100.2000, L500.3400, L3890.6202 #### [facility] [address] [place], [address] ALT [Catalytic activity/Vol] 16 U/L Normal <=34 [facility] Comment on above: Performed By: #### M 100.3000, L100.0100, L3890.6301, L3890.6102, M100.2000, L500.3400, L3890.6202 #### [facility] [address] [place], [address] AST [Catalytic activity/Vol] 23 U/L Normal <=31 [facility] Comment on above: Result Comment: Hemo lysis present, Results??could be affected. ?? Performed By: #### M 100.3000, L100.0100, L3890.6301, L3890.6102, M100.2000, L500.3400, L3890.6202 #### [facility] [address] [place], [address] Bilirubin [Mass/Vol] 0.50 mg/dL Normal 0.00-1.30 [facility] Comment on above: Performed By: #### M 100.3000, L100.0100, L3890.6301, L3890.6102, M100.2000, L500.3400, L3890.6202 #### [facility] [address] [place], [address] BUN/CRE 14.2 RATIO Normal 10-20 [facility] Comment on above: Performed By: #### M 100.3000, L100.0100, L3890.6301, L3890.6102, M100.2000, L500.3400, L3890.6202 #### [facility] [address] [place], [address] Calcium [Mass/Vol] 9.2 mg/dL Normal 7.6-11.0 [facility] Comment on above: Performed By: #### M 100.3000, L100.0100, L3890.6301, L3890.6102, M100.2000, L500.3400, L3890.6202 #### [facility] [address] [place], [address] Chloride [Moles/Vol] 105 mmol/L Normal 98-108 [facility] Comment on above: Performed By: #### M 100.3000, L100.0100, L3890.6301, L3890.6102, M100.1999, L500.3400, L3890.6202 #### [facility] [address] [place], [address] CO2 [Moles/Vol] 24.6 mmol/L Normal 21.0-32.0 [facility] Comment on above: Performed By: #### M 100.3000, L100.0100, L3890.6301, L3890.6102, M100.1999, L500.3400, L3890.6202 #### [facility] [address] [place], [address] Creatinine [Mass/Vol] 0.83 mg/dL Normal 0.70-1.20 [facility] Comment on above: Performed By: #### M 100.3000, L100.0100, L3890.6301, L3890.6102, M100.2000, L500.3400, L3890.6202 #### [facility] [address] [place], [address] ECRCL 94.03 ml/min Normal 50-250 [facility] Comment on above: Performed By: #### M 100.3000, L100.0100, L3890.6301, L3890.6102, M100.2000, L500.3400, L3890.6202 #### [facility] [address] [place], [address] GAP 13 Normal 5-15 [facility] Comment on above: Performed By: #### M 100.3000, L100.0100, L3890.6301, L3890.6102, M100.2000, L500.3400, L3890.6202 #### [facility] [address] [place], [address] GFR/1.73 sq M.predicted among non-blacks MDRD (S/P/Bld) [Vol rate/Area] 84 mL/min/{1.73_m2} Normal >60 [facility] Comment on above: Result Comment: mL/m in/1.73m2 CKD-EPI Creatinine Equation (2020) Performed By: #### M 100.3000, L100.0100, L3890.6301, L3890.6102, M100.2000, L500.3400, L3890.6202 #### [facility] [address] [place], [address] Globulin (S) [Mass/Vol] 2.6 g/dL Normal 2.2-4.2 [facility] Comment on above: Performed By: #### M 100.3000, L100.0100, L3890.6301, L3890.6102, M100.2000, L500.3400, L3890.6202 #### [facility] [address] [place], [address] Glucose [Mass/Vol] 135 mg/dL High 70-99 [facility] Comment on above: Performed By: #### M 100.3000, L100.0100, L3890.6301, L3890.6102, M100.2000, L500.3400, L3890.6202 #### [facility] [address] [place], [address] Potassium [Moles/Vol] 4.0 mmol/L Normal 3.3-5.1 [facility] Comment on above: Result Comment: Hemo lysis present, Results??could be affected. ?? Performed By: #### M 100.3000, L100.0100, L3890.6301, L3890.6102, M100.2000, L500.3400, L3890.6202 #### [facility] [address] [place], [address] Sodium [Moles/Vol] 143 mmol/L Normal 133-145 [facility] Comment on above: Performed By: #### M 100.3000, L100.0100, L3890.6301, L3890.6102, M100.2000, L500.3400, L3890.6202 #### [facility] [address] [place], [address] T PROT 6.5 g/dL Normal 5.9-8.4 [facility] Comment on above: Performed By: #### M 100.3000, L100.0100, L3890.6301, L3890.6102, M100.2000, L500.3400, L3890.6202 #### [facility] [address] [place], [address] Urea nitrogen [Mass/Vol] 12 mg/dL Normal 4-19 [facility] Comment on above: Performed By: #### M 100.3000, L100.0100, L3890.6301, L3890.6102, M100.2000, L500.3400, L3890.6202 #### [facility] [address] 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 Breast: Soft and [...] 20:51 05/26/25 20:51 Charges/Coding Procedures Integumentary 111xxx-113xx: 50220 Global Visit 05/26/25 2154 Cosigner Signature (if applicable): CC: Clemencia Guadalupe DO Signed Normal [facility] Emergency Department Summary on 05-26-2025 Emergency Department Summary [facility] Medical Records Department [address] [place] [address] Emergency Department Summary 05/26/25 MR#: [id number] Acct: [id number] Name: PATRIA JOHNSON Rep #: [id number] : 1970 54 From: Chris Montano PCP: Clemencia Guadalupe DO Status:ADM IN Location: [place] [address] HPI History of Present Illness Chief Complaint: [...] some slight (more content not included)... Normal [facility] Eosinophil percentageOrdered By: ED PROVIDER on 05-26-2025 Eosinophils/100 WBC (Bld) 5.3 % High 0-5 [facility] Erythrocyte distribution wid th ratioOrdered By: ED PROVIDER on 05-26-2025 Erythrocyte distribution width (RBC) [Ratio] 13.4 % 11.6-14.6 [facility] Erythrocyte distribution wid th standard deviationOrdered By: ED PROVIDER on 05-26-2025 Erythrocyte distribution width (RBC) [Ratio] 41.6 fl 35.1-43.9 [facility] Glomerular filtration rate ( GFR) estimation/1.73 sq m using serum, plasma, or whole bOrdered By: ED PROVIDER on 05-26-2025 GFR/1.73 sq M.predicted among non-blacks MDRD (S/P/Bld) [Vol rate/Area] 84 mL/min/{1.73_m2} >60 [facility] Comment on above: mL/min/1.73m2 CKD-EP I Creatinine Equation (2020) Hematocrit Auto (Bld) [Volum e fraction]Ordered By: ED PROVIDER on 05-26-2025 Hematocrit (Bld) [Volume fraction] 38.4 % 37-47 [facility] Hemoglobin measurementOrdere d By: ED PROVIDER on 05-26-2025 Hemoglobin (Bld) [Mass/Vol] 13.0 g/dL 12.0-15.0 [facility] Immature granulocytes/100 WB C Auto (Bld)Ordered By: ED PROVIDER on 05-26-2025 Immature granulocytes/100 WBC (Bld) 0.600 % 0.0-0.9 [facility] Comment on above: IG% - Immature Granu locytes (promyelocytes, myelocytes and metamyelocytes) > 1% indicates that a LEFT SHIFT is Present. Laboratory - Chemistry and C hemistry - challengeOrdered By: ED PROVIDER on 05-26-2025 AST [Catalytic activity/Vol] 23 U/L <32 [facility] Comment on above: Hemolysis present, R esults could be affected. Lactic Acidon 05-26-2025 Lactate [Moles/Vol] 1.3 mmol/L Normal 0.0-2.0 [facility] Comment on above: Order Comment: Y Performed By: #### M 100.3000, L100.0100, L3890.6301, L3890.6102, M100.2000, L500.3400, L3890.6202 #### [facility] [address] [place], [address] Lactic acid measurementOrder ed By: ED PROVIDER on 05-26-2025 Lactate [Moles/Vol] 1.3 mmol/L 0.0-2.0 [facility] MCV (mean corpuscular volume ) determinationOrdered By: ED PROVIDER on 05-26-2025 MCV (RBC) [Entitic vol] 86.3 fL 81-[address] [facility] Mean corpuscular hemoglobin (MCH) determinationOrdered By: ED PROVIDER on 05-26-2025 MCH (RBC) [Entitic mass] 29.2 pg 27.0-32.0 [facility] Mean corpuscular hemoglobin concentration (MCHC) determinationOrdered By: ED PROVIDER on 05-26-2025 MCHC (RBC) [Mass/Vol] 33.9 g/dL 32-36 [facility] Mean platelet volume determi nationOrdered By: ED PROVIDER on 05-26-2025 Platelet mean volume (Bld) [Entitic vol] 9.5 fL 6.2-12.0 [facility] Monocyte percentageOrdered B y: ED PROVIDER on 05-26-2025 Monocytes/100 WBC (Bld) 8.9 % 0-[address] [facility] Neutrophil percentageOrdered By: ED PROVIDER on 05-26-2025 Neutrophils/100 WBC (Bld) 50.4 % 47-70 [facility] Nucleated red blood cell per centageOrdered By: ED PROVIDER on 05-26-2025 Nucleated RBC/100 WBC (Bld) [Ratio] 0 % 0-5 [facility] Platelet countOrdered By: ED PROVIDER on 05-26-2025 Platelets (Bld) [#/Vol] 395 10*3/uL 150-450 [facility] Potassium measurement (mass/ volume)Ordered By: ED PROVIDER on 05-26-2025 Potassium (Unsp spec) [Mass/Vol] 4.0 mmol/L 3.3-5.1 [facility] Comment on above: Hemolysis present, R esults could be affected. RBC Auto (Bld) [#/Vol]Ordere d By: ED PROVIDER on 05-26-2025 RBC (Bld) [#/Vol] 4.45 10*6/uL 4.2-5.4 [facility] Serum creatinine measurement (mass/volume)Ordered By: ED PROVIDER on 05-26-2025 Creatinine [Mass/Vol] 0.83 mg/dL 0.70-1.20 [facility] Serum globulin measurementOr dered By: ED PROVIDER on 05-26-2025 Globulin (S) [Mass/Vol] 2.6 g/dL 2.2-4.[address] [facility] Serum glucose measurement (m ass/volume)Ordered By: ED PROVIDER on 05-26-2025 Glucose [Mass/Vol] 135 mg/dL High 70-99 [facility] Serum or plasma alanine coffey otransferase (ALT) measurementOrdered By: ED PROVIDER on 05-26-2025 ALT [Catalytic activity/Vol] 16 U/L <35 [facility] Serum or plasma albumin madyson urement (mass/volume)Ordered By: ED PROVIDER on 05-26-2025 Albumin [Mass/Vol] 3.9 g/dL 3.5-5.0 [facility] Serum or plasma albumin/glob ulin mass ratioOrdered By: ED PROVIDER on 05-26-2025 Albumin/Globulin [Mass ratio] 1.5 {ratio} 0.9-2.4 [facility] Serum or plasma alkaline rolando sphatase measurementOrdered By: ED PROVIDER on 05-26-2025 ALP [Catalytic activity/Vol] 72 U/L 35-104 [facility] Serum or plasma calcium madyson urement (mass/volume)Ordered By: ED PROVIDER on 05-26-2025 Calcium [Mass/Vol] 9.2 mg/dL 7.6-11.0 [facility] Serum or plasma urea nitroge n measurement (mass/volume)Ordered By: ED PROVIDER on 05-26-2025 Urea nitrogen [Mass/Vol] 12 mg/dL 4-19 [facility] Sodium levelOrdered By: ED P ROVIDER on 05-26-2025 Sodium [Moles/Vol] 143 mmol/L 133-145 [facility] Total proteinOrdered By: ED PROVIDER on 05-26-2025 Protein [Mass/Vol] 6.5 g/dL 5.9-8.4 [facility] White blood cell (WBC) count Ordered By: ED PROVIDER on 05-26-2025 WBC (Bld) [#/Vol] 9.4 10*3/uL 4.4-11.0 [facility] Plastic Surgery Visit Report on 05-24-2025 Plastic Surgery Visit Report [facility] Plastic Reconstructive Surgery [address], [address] [place] [address] OFFICE VISIT Date of Service: 05/23/25 MR#: [id number] Acct: [id number] Name: PATRIA JOHNSON Rep #: [id number] : 1970 Provider: Dr. 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 Breast: Soft and [...] Op Diagnoses Status post breast reduction Z98.890 [facility] Medical History Depression Anxiety Diabetes Arthritis Anemia [...] slough off Follow-up in 1 week 05/16/25 4576 Date Yannick Bourne MD Cosign Signature: Date (if applicable) CC: Normal [facility] Plastic Surgery Visit Report on 05-12-2025 Plastic Surgery Visit Report [facility] Plastic Reconstructive Surgery [address], [address] [place] [address] OFFICE VISIT Date of Service: 05/12/25 MR#: [id number] Acct: [id number] Name: GLORIAPATRIA FRANKLIN Rep #: [id number] : 1970 Provider: Dr. Yannick oBurne MD Age/Sex: 54/F Location: [facility] Status: Signed Intake Vital Signs 05/07/25 15:10 [...] 30 to 40 cc/day. 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 Normal [facility] Absolute lymphocyte countOrd ered By: Yannick Bourne on 05-08-2025 Lymphocytes Auto (Unsp spec) [#/Vol] 2.73 10*3/uL 0.83-4.51 [facility] Absolute neutrophil countOrd ered By: Yannick Bourne on 05-08-2025 Neutrophils (Bld) [#/Vol] 6.2 10*3/uL 2.0-7.7 [facility] Anion gap in Serum or Plasma Ordered By: Yannikc Bourne on 05-08-2025 Anion gap [Moles/Vol] 11 mmol/L - [facility] Automated lymphocyte count a s percentage of total leukocytesOrdered By: Yannick Bourne on 05-08-2025 Lymphocytes/100 WBC Auto (Unsp spec) 25.8 % - [facility] BUN/creatinine ratioOrdered By: Yannick Bourne on 05-08-2025 Urea nitrogen/Creatinine [Mass ratio] 12.8 mg/mg - [facility] Basic Metabolic Profile (BMP )on 05-08-2025 BUN/CRE 12.8 RATIO Normal 08-18 [facility] Comment on above: Performed By: #### M 100.3000, L100.0100, L3890.6301, L3890.6102, M100.1999, L500.3400, L3890.6202 #### [facility] [address] [place], [address] Calcium [Mass/Vol] 8.5 mg/dL Normal 7.6-11.0 [facility] Comment on above: Performed By: #### M 100.3000, L100.0100, L3890.6301, L3890.6102, M100.2000, L500.3400, L3890.6202 #### [facility] [address] [place], [address] Chloride [Moles/Vol] 101 mmol/L Normal 98-108 [facility] Comment on above: Performed By: #### M 100.3000, L100.0100, L3890.6301, L3890.6102, M100.2000, L500.3400, L3890.6202 #### [facility] [address] [place], [address] CO2 [Moles/Vol] 24.6 mmol/L Normal 21.0-32.0 [facility] Comment on above: Performed By: #### M 100.3000, L100.0100, L3890.6301, L3890.6102, M100.2000, L500.3400, L3890.6202 #### [facility] [address] [place], [address] Creatinine [Mass/Vol] 0.95 mg/dL Normal 0.70-1.20 [facility] Comment on above: Performed By: #### M 100.3000, L100.0100, L3890.6301, L3890.6102, M100.2000, L500.3400, L3890.6202 #### [facility] [address] [place], [address] ECRCL 82.19 ml/min Normal 50-250 [facility] Comment on above: Performed By: #### M 100.3000, L100.0100, L3890.6301, L3890.6102, M100.2000, L500.3400, L3890.6202 #### [facility] [address] [place], [address] GAP 11 Normal 5-15 [facility] Comment on above: Performed By: #### M 100.3000, L100.0100, L3890.6301, L3890.6102, M100.2000, L500.3400, L3890.6202 #### [facility] [address] [place], [address] GFR/1.73 sq M.predicted among non-blacks MDRD (S/P/Bld) [Vol rate/Area] 72 mL/min/{1.73_m2} Normal >60 [facility] Comment on above: Result Comment: mL/m in/1.73m2 CKD-EPI Creatinine Equation (2020) Performed By: #### M 100.3000, L100.0100, L3890.6301, L3890.6102, M100.2000, L500.3400, L3890.6202 #### [facility] [address] [place], [address] Glucose [Mass/Vol] 115 mg/dL High 70-99 [facility] Comment on above: Performed By: #### M 100.3000, L100.0100, L3890.6301, L3890.6102, M100.2000, L500.3400, L3890.6202 #### [facility] [address] [place], [address] Potassium [Moles/Vol] 3.5 mmol/L Normal 3.3-5.1 [facility] Comment on above: Performed By: #### M 100.3000, L100.0100, L3890.6301, L3890.6102, M100.2000, L500.3400, L3890.6202 #### [facility] [address] [place], [address] Sodium [Moles/Vol] 137 mmol/L Normal 133-145 [facility] Comment on above: Performed By: #### M 100.3000, L100.0100, L3890.6301, L3890.6102, M100.2000, L500.3400, L3890.6202 #### [facility] [address] [place], [address] Urea nitrogen [Mass/Vol] 12 mg/dL Normal 4-19 [facility] Comment on above: Performed By: #### M 100.3000, L100.0100, L3890.6301, L3890.6102, M100.2000, L500.3400, L3890.6202 #### [facility] [address] [place], [address] Basophil percentageOrdered B y: Yannick Bourne on 05-08-2025 Basophils/100 WBC (Bld) 0.4 % 0-[address] [facility] Bedside Glucoseon 05-08-2025 FINGERSTICK GLU 159 mg/dL High 74-106 [facility] Comment on above: Result Comment: TIMMY MARTINEZ OF PATIENT CARE PER NURSING PROTOCOL Performed By: #### L 501.080 #### [facility] [address] [place], [address] CBC W/Diff, Automatedon 04-29 Absolute Lymph 2.73 X10 3/uL Normal 0.83-4.51 [facility] Comment on above: Performed By: #### M 100.3000, L100.0100, L3890.6301, L3890.6102, M100.2000, L500.3400, L3890.6202 #### [facility] [address] [place], [address] Absolute Neut 6.2 X10 3/uL Normal 2.0-7.7 [facility] Comment on above: Performed By: #### M 100.3000, L100.0100, L3890.6301, L3890.6102, M100.2000, L500.3400, L3890.6202 #### [facility] [address] [place], [address] Basophils/100 WBC (Bld) 0.4 % Normal 0-[address] [facility] Comment on above: Performed By: #### M 100.3000, L100.0100, L3890.6301, L3890.6102, M100.2000, L500.3400, L3890.6202 #### [facility] [address] [place], [address] Eosinophils/100 WBC (Bld) 3.1 % Normal 0-5 [facility] Comment on above: Performed By: #### M 100.3000, L100.0100, L3890.6301, L3890.6102, M100.2000, L500.3400, L3890.6202 #### [facility] [address] [place], [address] Erythrocyte distribution width (RBC) [Ratio] 13.7 % Normal 11.6-14.6 [facility] Comment on above: Performed By: #### M 100.3000, L100.0100, L3890.6301, L3890.6102, M100.2000, L500.3400, L3890.6202 #### [facility] [address] [place], [address] Hematocrit (Bld) [Volume fraction] 36.7 % Low 37-47 [facility] Comment on above: Performed By: #### M 100.3000, L100.0100, L3890.6301, L3890.6102, M100.2000, L500.3400, L3890.6202 #### [facility] [address] [place], [address] Hemoglobin (Bld) [Mass/Vol] 12.4 g/dL Normal 12.0-15.0 [facility] Comment on above: Performed By: #### M 100.3000, L100.0100, L3890.6301, L3890.6102, M100.2000, L500.3400, L3890.6202 #### [facility] [address] [place], [address] IG% 0.400 Normal 0.0-0.9 [facility] Comment on above: Result Comment: IG% - Immature Granulocytes (promyelocytes, myelocytes and metamyelocytes) > 1% indicates that a LEFT SHIFT is Present. Performed By: #### M 100.3000, L100.0100, L3890.6301, L3890.6102, M100.2000, L500.3400, L3890.6202 #### [facility] [address] [place], [address] Lymphocytes/100 WBC (Bld) 25.8 % Normal 19-41 [facility] Comment on above: Performed By: #### M 100.3000, L100.0100, L3890.6301, L3890.6102, M100.2000, L500.3400, L3890.6202 #### [facility] [address] [place], [address] MCH (RBC) [Entitic mass] 29.7 pg Normal 27.0-32.0 [facility] Comment on above: Performed By: #### M 100.3000, L100.0100, L3890.6301, L3890.6102, M100.2000, L500.3400, L3890.6202 #### [facility] [address] [place], [address] MCHC (RBC) [Mass/Vol] 33.8 g/dL Normal 32-36 [facility] Comment on above: Performed By: #### M 100.3000, L100.0100, L3890.6301, L3890.6102, M100.2000, L500.3400, L3890.6202 #### [facility] [address] [place], [address] MCV (RBC) [Entitic vol] 87.8 fL Normal 81-99 [facility] Comment on above: Performed By: #### M 100.3000, L100.0100, L3890.6301, L3890.6102, M100.2000, L500.3400, L3890.6202 #### [facility] [address] [place], [address] Monocytes/100 WBC (Bld) 11.8 % High 0-[address] [facility] Comment on above: Performed By: #### M 100.3000, L100.0100, L3890.6301, L3890.6102, M100.2000, L500.3400, L3890.6202 #### [facility] [address] [place], [address] Neutrophils/100 WBC (Bld) 58.5 % Normal 47-70 [facility] Comment on above: Performed By: #### M 100.3000, L100.0100, L3890.6301, L3890.6102, M100.2000, L500.3400, L3890.6202 #### [facility] [address] [place], [address] Nucleated RBC (Bld) [#/Vol] 0 10*3/uL Normal 0-5 [facility] Comment on above: Performed By: #### M 100.3000, L100.0100, L3890.6301, L3890.6102, M100.2000, L500.3400, L3890.6202 #### [facility] [address] [place], [address] Platelet mean volume (Bld) [Entitic vol] 9.6 fL Normal 6.2-12.0 [facility] Comment on above: Performed By: #### M 100.3000, L100.0100, L3890.6301, L3890.6102, M100.2000, L500.3400, L3890.6202 #### [facility] [address] [place], [address] Platelets (Bld) [#/Vol] 253 10*3/uL Normal 150-450 [facility] Comment on above: Performed By: #### M 100.3000, L100.0100, L3890.6301, L3890.6102, M100.2000, L500.3400, L3890.6202 #### [facility] [address] [place], [address] RBC (Bld) [#/Vol] 4.18 10*6/uL Low 4.2-5.4 [facility] Comment on above: Performed By: #### M 100.3000, L100.0100, L3890.6301, L3890.6102, M100.2000, L500.3400, L3890.6202 #### [facility] [address] [place], [address] RDW SD 43.8 fl Normal 35.1-43.9 [facility] Comment on above: Performed By: #### M 100.3000, L100.0100, L3890.6301, L3890.6102, M100.2000, L500.3400, L3890.6202 #### [facility] [address] [place], [address] WBC (Bld) [#/Vol] 10.6 10*3/uL Normal 4.4-11.0 [facility] Comment on above: Performed By: #### M 100.3000, L100.0100, L3890.6301, L3890.6102, M100.2000, L500.3400, L3890.6202 #### [facility] [address] [place], [address] Carbon dioxide, total [Moles /volume] in Central venous bloodOrdered By: Yannick Bourne on 05-08-2025 CO2 [Moles/Vol] 24.6 mmol/L 21.0-32.0 [facility] Chloride assayOrdered By: Mary Bourne on 05-08-2025 Chloride [Moles/Vol] 101 mmol/L 98-108 [facility] Eosinophil percentageOrdered By: Yannick Bourne on 05-08-2025 Eosinophils/100 WBC (Bld) 3.1 % 0-5 [facility] Erythrocyte distribution wid th ratioOrdered By: Yannick Bourne on 05-08-2025 Erythrocyte distribution width (RBC) [Ratio] 13.7 % 11.6-14.6 [facility] Erythrocyte distribution wid th standard deviationOrdered By: Yannick Bourne on 05-08-2025 Erythrocyte distribution width (RBC) [Ratio] 43.8 fl 35.1-43.9 [facility] Glomerular filtration rate ( GFR) estimation/1.73 sq m using serum, plasma, or whole bOrdered By: Yannick Bourne on 05-08-2025 GFR/1.73 sq M.predicted among non-blacks MDRD (S/P/Bld) [Vol rate/Area] 72 mL/min/{1.73_m2} >60 [facility] Comment on above: mL/min/1.73m2 CKD-EP I Creatinine Equation (2020) [facility] deOrdered By: Yannick Bourne on 05-08-2025 Glucose [Mass/Vol] 159 mg/dL High 74-106 [facility] Comment on above: MANAGEMENT OF PATIEN T CARE PER NURSING PROTOCOL Hematocrit Auto (Bld) [Volum e fraction]Ordered By: Yannick Bourne on 05-08-2025 Hematocrit (Bld) [Volume fraction] 36.7 % Low 37-47 [facility] Hemoglobin measurementOrdere d By: Yannick Bourne on 05-08-2025 Hemoglobin (Bld) [Mass/Vol] 12.4 g/dL 12.0-15.0 [facility] Immature granulocytes/100 WB C Auto (Bld)Ordered By: Yannick Bourne on 05-08-2025 Immature granulocytes/100 WBC (Bld) 0.400 % 0.0-0.9 [facility] Comment on above: IG% - Immature Granu locytes (promyelocytes, myelocytes and metamyelocytes) > 1% indicates that a LEFT SHIFT is Present. MCV (mean corpuscular volume ) determinationOrdered By: Yannick Bourne on 05-08-2025 MCV (RBC) [Entitic vol] 87.8 fL 81-[address] [facility] Mean corpuscular hemoglobin (MCH) determinationOrdered By: Yannick Bourne on 05-08-2025 MCH (RBC) [Entitic mass] 29.7 pg 27.0-32.0 [facility] Mean corpuscular hemoglobin concentration (MCHC) determinationOrdered By: Ynanick Bourne on 05-08-2025 MCHC (RBC) [Mass/Vol] 33.8 g/dL 32-36 [facility] Mean platelet volume determi nationOrdered By: Yannick Bourne on 05-08-2025 Platelet mean volume (Bld) [Entitic vol] 9.6 fL 6.2-12.0 [facility] Monocyte percentageOrdered B y: Yannick Bourne on 05-08-2025 Monocytes/100 WBC (Bld) 11.8 % High 0-[address] [facility] Neutrophil percentageOrdered By: Yannick Bourne on 05-08-2025 Neutrophils/100 WBC (Bld) 58.5 % 47-70 [facility] Nucleated red blood cell per centageOrdered By: Yannick Bourne on 05-08-2025 Nucleated RBC/100 WBC (Bld) [Ratio] 0 % 0-5 [facility] Platelet countOrdered By: Mary Bourne on 05-08-2025 Platelets (Bld) [#/Vol] 253 10*3/uL 150-450 [facility] Potassium measurement (mass/ volume)Ordered By: Yannick Bourne on 05-08-2025 Potassium (Unsp spec) [Mass/Vol] 3.5 mmol/L 3.3-5.1 [facility] RBC Auto (Bld) [#/Vol]Ordere d By: Yannick Bourne on 05-08-2025 RBC (Bld) [#/Vol] 4.18 10*6/uL Low 4.2-5.4 [facility] Serum creatinine measurement (mass/volume)Ordered By: Yannick Bourne on 05-08-2025 Creatinine [Mass/Vol] 0.95 mg/dL 0.70-1.20 [facility] Serum glucose measurement (m ass/volume)Ordered By: Yannick Bourne on 05-08-2025 Glucose [Mass/Vol] 115 mg/dL High 70-99 [facility] Serum or plasma calcium madyson urement (mass/volume)Ordered By: Yannick Bourne on 05-08-2025 Calcium [Mass/Vol] 8.5 mg/dL 7.6-11.0 [facility] Serum or plasma urea nitroge n measurement (mass/volume)Ordered By: Yannick Bourne on 05-08-2025 Urea nitrogen [Mass/Vol] 12 mg/dL 4-19 [facility] Sodium levelOrdered By: Lei Bourne on 05-08-2025 Sodium [Moles/Vol] 137 mmol/L 133-145 [facility] White blood cell (WBC) count Ordered By: Yannick Bourne on 05-08-2025 WBC (Bld) [#/Vol] 10.6 10*3/uL 4.4-11.0 [facility] Bedside Glucoseon 05-07-2025 FINGERSTICK GLU 133 mg/dL High 74-106 [facility] Comment on above: Result Comment: TIMMY GEMENT OF PATIENT CARE PER NURSING PROTOCOL Performed By: #### M 100.3000, L100.0100, L3890.6301, L3890.6102, M100.2000, L500.3400, L3890.6202 #### [facility] [address] [place], [address] FINGERSTICK GLU 119 mg/dL High 74-106 [facility] Comment on above: Result Comment: TIMMY GEMENT OF PATIENT CARE PER NURSING PROTOCOL Performed By: #### M 100.3000, L100.0100, L3890.6301, L3890.6102, M100.2000, L500.3400, L3890.6202 #### [facility] [address] [place], [address] Glucose measurement at bedsi deOrdered By: Yannick Bourne on 05-07-2025 Glucose [Mass/Vol] 133 mg/dL High 74-106 [facility] Comment on above: MANAGEMENT OF PATIEN T CARE PER NURSING PROTOCOL H AND P Exam - Surgicalon H&P Exam - Surgical [facility] Medical Records Department [address] [place] [address] H P Exam - Surgical 05/07/25 0702 MR#: [id number] Acct: [id number] Name: PATRIA JOHNSON Rep #: [id number] : 1970 54 From: Yannick Bourne MD PCP: Clemencia Guadalupe DO Status:REG [facility] Location: [place] [address] HPI - General HPI Narrative Breast Reduction [...] has resolved. Ready to proceed with surgery. [facility] Medical History Depression Anxiety Diabetes Arthritis Anemia [...] penicillin V Aller (more content not included)... [facility] MR/POSTOP.[facility] 05-07-2025 MR/POSTOP.[facility] Medical Records Department [address] [place] [address] Anesthesia Postop Eval I 05/07/25 1257 MR#: [id number] Acct: [id number] Name: PATRIA JOHNSON Rep #: [id number] : 1970 54 From: Iris Berg CRNA PCP: Clemencia Guadalupe DO Status:REG SDC Y Race: C Location: [place] [address] Anesthesia: Postop Eval I Current Vital Signs [...] completed: Yes 05/07/25 1258 Date Iris Berg NECKTIES PAINTER Cosigner Signature: Date CC: Signed Normal [facility] MR/[id number] 05-07-2025 MR/POSTOPAN2 [facility] Medical Records Department [address] [place] [address] Anesthesia Postop Eval II 05/07/25 1344 MR#: [id number] Acct: [id number] Name: PATRIA JOHNSON Rep #: [id number] : 1970 54 From: Desean Bateman MD PCP: Clemencia Guadalupe DO Status:ADM GALILEA Y Race: C Location: [place]3 [id number] Anesthesia Postop Eval I Sum Postop Eval Completion status Anesthesia document: Postop Eval 1 completed: Yes Anesthesia Postop Eval I Summary Anesthesia Postop Eval I Summary: Anesthesia Postop Eval I: Assessment Summary Airway patent Yes 05/07/25 12:58 NECKTIES PAINTER.GDOTT Spontaneous unlabored Yes 05/07/25 12:58 NECKTIES PAINTER.GDOTT respirations Mental status Awake,Calm 05/07/25 12:58 NECKTIES PAINTER.GDOTT nausea No 05/07/25 12:58 NECKTIES PAINTER.GDOTT Vomiting No 05/07/25 12:58 NECKTIES PAINTER.GDOTT Anesthesia Postop Eval I: Fluid Summary Crystalloid volume administer 2,100 05/07/25 12:58 NECKTIES PAINTER.GDOTT (ml) Colloids volume administered ( ml) Blood Product volume administered (ml) Total IV fluid infused 2,100 05/07/25 12:58 NECKTIES PAINTER.GDOTT Anesthesia Postop Eval I: Summary Notes Anesthesia Complication No 05/07/25 12:58 NECKTIES PAINTER.GDOTT Anesthesia Complication Comment: Post-operative progress note Anesthesia: Postop Eval II Evaluation Mental status: Awake and Calm Pain Level: 1 nausea: No Vomiting: No Complications Anesthesia Complication: No 05/07/25 1345 Date Desean Bateman MD Cosigner Signature: Date CC: Signed Normal [facility] Operative Reporton 5 Operative Report [facility] Medical Records Department [address] [place] [address] Operative Report 05/07/25 1443 MR#: [id number] Acct: [id number] Name: PATRIA JOHNSON Rep #: [id number] : 1970 54 From: Yannick Bourne MD PCP: Clemencia Guadalupe DO Status:ADM GALILEA Location: [place] [address] Operative Report (Standard) Operative Information Date of Procedure: 05/07/25 Pre-Operative Diagnosis: Macromastia Post-Operative Diagnosis: Same Surgery/Procedure Performed: 1) Breast reduction (bilateral), inferior pedicle with alan pattern skin resection and axillary/lateral chest liposuction (CPT: 64599 x 2 with 50 modifier) pediatric intensive physician: Yes Recorder Of Deeds: martínez Tasks completed by clinical nursing assistant: Closing and Retracting Type of Anesthesia: General/Supplemental [...] copious amounts normal saline and Irrisept. 19 Urdu Fabian drains were tunneled out laterally. Hemostasis [...] No Adm (more content not included)... Normal [facility] ,Urineon 05-07-2025 Beta HCG ( test) Ql (U) Negative Normal [facility] Comment on above: Result Comment: Very dilute urine specimens, as indicated by a low specific gravity, may not contain sales representative adding machines levels of hCG. If is still suspected, a first morning urine specimen should be collected 48 hours later and tested. Performed By: #### M 100.3000, L100.0100, L3890.6301, L3890.6102, M100.2000, L500.3400, L3890.6202 #### [facility] [address] [place], [place], [address] Surgery Specimen Level Leon 05-07-2025 Surgery Specimen Level IV Patient Age/Sex Location Account Attending Physician PATRIA JOHNSON 54/F MS3 [id number] Dr. Yannick Bourne MD Specimen: [id number] Received: 05/07/25 Status: LIV Du Num: [id number] Spec Type: MAMOPLASTY Subm Dr: Dr. Yannick [...] fibrofatty cut surfaces (85% fatty, 15% fibrotic). Safety Instruction Police Officer sections are submitted in 2 cassettes. B. "Right breast tissue" is a 551 g, 26.0 x 13.9 x 2.9 cm aggregate of hernandez-yellow fibrofatty tissue and hernandez portions of skin. Sectioning reveals fibrofatty cut surfaces (95% fatty, 5% fibrotic). Safety Instruction Police Officer sections are submitted in 2 cassettes [place] 05/07/2025PT:42580u0 Patient Age/Sex Location Account Attending Physician PATRIA JOHNSON 54/F MS3 [id number] Dr. Yannick Bourne MD Signed (signature on file) Dr. Debbie Mcarthur MD 05/08/25 1657 [facility] Comment on above: Performed By: #### M 100.3000, L100.0100, L3890.6301, L3890.6102, M100.2000, L500.3400, L3890.6202 #### [facility] [address] [place], [address] Urine testOrdered By: Anupam Newby on 05-07-2025 HCG ( test) Ql (U) Negative [facility] Comment on above: Very dilute urine sp ecimens, as indicated by a low specificgravity, may not contain sales representative adding machines levels of hCG. If is still suspected, a first morning urinespecimen should be collected 48 hours later and tested. Electrocardiogram reportOrde red By: Florentin Rayo on 04-02-2025 EKG study [facility] Cardiovascular Services [address] [place] [address] 12 Lead EKG 04/01/25 1314 MR#: [id number] Acct: [id number] Name: PATRIA JOHNSON Rep #:[id number] : 1970 54 From: Florentin connolly MD Attending Dr: Dr. Yannick Bourne MD Status: PRE SDC Ordering Dr: Anupam Newby MD Date: Location: [facility] Sex: F C Admitted: Test Reason : PRE OP Blood Pressure : */* mmHG Vent. Rate : 90 BPM Atrial Rate : 90 BPM P-R Int : 152 ms QRS Dur : 84 ms QT Int : 360 ms P-R-T Axes : 51 44 47 degrees QTcB Int : 440 ms Normal sinus rhythm Normal ECG Confirmed by Florentin Rayo ([id number]), restaurant expeditor UVALDO LUGO ([id number]) on 04/02/2025 5:49:56 AM Referred By: Yannick Bourne Confirmed By: Florentin Rayo 04/02/25 0549 Date _ Florentin Rayo MD CC: Dr. Anupam Newby MD; Dr. Yannick Bourne MD; Clemencia Guadalupe DO ~ Signed [facility] Work Phone: 12 Lead EKGon 04-01-2025 12 Lead EKG [facility] Cardiovascular Services [address] [place] [address] 12 Lead EKG 04/01/25 1314 MR#: [id number] Acct: [id number] Name: PATRIA JOHNSON Rep #: [id number] : 1970 54 From: Florentin Rayo MD Attending Dr: Dr. Yannick Bourne MD Status: PRE SDC Ordering Dr: Anupam Newby MD Date: 04/01/25 Location: [facility] Sex: F C Admitted: Test Reason : PRE OP Blood Pressure : */* mmHG Vent. Rate : 90 BPM Atrial Rate : 90 BPM P-R Int : 152 ms QRS Dur : 84 ms QT Int : 360 ms P-R-T Axes : 51 44 47 degrees QTcB Int : 440 ms Normal sinus rhythm Normal ECG Confirmed by Florentin Rayo ([id number]), restaurant expeditor UVALDO LUGO ([id number]) on 04/02/2025 5:49:56 AM Referred By: Yannick Bourne Confirmed By: Florentin Rayo 04/02/25 0549 Date Florentin Rayo MD CC: Dr. Anupam Newby MD; Dr. Yannick Bourne MD; Clemencia Guadalupe DO Signed Normal [facility] Activated partial thrombopla stin time (aPTT) in platelet poor plasma by coagulation aOrdered By: Anupam Newby on 04-01-2025 aPTT Coag (PPP) [Time] 25.2 s 24.1-36.2 [facility] Basic Metabolic Profile (BMP )on 04-01-2025 BUN/CRE 14.7 RATIO Normal 10-20 [facility] Comment on above: Performed By: #### M 100.3000, L100.0100, L3890.6301, L3890.6102, M100.2000, L500.3400, L3890.6202 #### [facility] [address] [place], [address] Calcium [Mass/Vol] 9.4 mg/dL Normal 7.6-11.0 [facility] Comment on above: Performed By: #### M 100.3000, L100.0100, L3890.6301, L3890.6102, M100.2000, L500.3400, L3890.6202 #### [facility] [address] [place], [address] Chloride [Moles/Vol] 104 mmol/L Normal 98-108 [facility] Comment on above: Performed By: #### M 100.3000, L100.0100, L3890.6301, L3890.6102, M100.2000, L500.3400, L3890.6202 #### [facility] [address] [place], [address] CO2 [Moles/Vol] 23.6 mmol/L Normal 21.0-32.0 [facility] Comment on above: Performed By: #### M 100.3000, L100.0100, L3890.6301, L3890.6102, M100.2000, L500.3400, L3890.6202 #### [facility] [address] [place], [address] Creatinine [Mass/Vol] 0.92 mg/dL Normal 0.70-1.20 [facility] Comment on above: Performed By: #### M 100.3000, L100.0100, L3890.6301, L3890.6102, M100.2000, L500.3400, L3890.6202 #### [facility] [address] [place], [address] GAP 12 Normal 5-15 [facility] Comment on above: Performed By: #### M 100.3000, L100.0100, L3890.6301, L3890.6102, M100.2000, L500.3400, L3890.6202 #### [facility] [address] [place], [address] GFR/1.73 sq M.predicted among non-blacks MDRD (S/P/Bld) [Vol rate/Area] 75 mL/min/{1.73_m2} Normal >60 [facility] Comment on above: Result Comment: mL/m in/1.73m2 CKD-EPI Creatinine Equation (2020) Performed By: #### M 100.3000, L100.0100, L3890.6301, L3890.6102, M100.2000, L500.3400, L3890.6202 #### [facility] [address] [place], [address] Glucose [Mass/Vol] 103 mg/dL High 70-99 [facility] Comment on above: Performed By: #### M 100.3000, L100.0100, L3890.6301, L3890.6102, M100.2000, L500.3400, L3890.6202 #### [facility] [address] [place], [address] Potassium [Moles/Vol] 3.7 mmol/L Normal 3.3-5.1 [facility] Comment on above: Performed By: #### M 100.3000, L100.0100, L3890.6301, L3890.6102, M100.2000, L500.3400, L3890.6202 #### [facility] [address] [place], [address] Sodium [Moles/Vol] 139 mmol/L Normal 133-145 [facility] Comment on above: Performed By: #### M 100.3000, L100.0100, L3890.6301, L3890.6102, M100.2000, L500.3400, L3890.6202 #### [facility] [address] [place], [address] Urea nitrogen [Mass/Vol] 14 mg/dL Normal 4-19 [facility] Comment on above: Performed By: #### M 100.3000, L100.0100, L3890.6301, L3890.6102, M100.2000, L500.3400, L3890.6202 #### [facility] [address] [place], [address] Bilirubin directOrdered By: Anupam Newby on 04-01-2025 Bilirubin.direct [Mass/Vol] 0.26 mg/dL 0.00-0.30 [facility] Bilirubin, totalOrdered By: Anupam Newby on 04-01-2025 Bilirubin [Mass/Vol] 0.69 mg/dL 0.00-1.30 [facility] CBC-Complete Blood Cnt No Di ffon 04-01-2025 Erythrocyte distribution width (RBC) [Ratio] 13.0 % Normal 11.6-14.6 [facility] Comment on above: Performed By: #### M 100.3000, L100.0100, L3890.6301, L3890.6102, M100.2000, L500.3400, L3890.6202 #### [facility] [address] [place], [address] Hematocrit (Bld) [Volume fraction] 40.0 % Normal 37-47 [facility] Comment on above: Performed By: #### M 100.3000, L100.0100, L3890.6301, L3890.6102, M100.2000, L500.3400, L3890.6202 #### [facility] [address] [place], [address] Hemoglobin (Bld) [Mass/Vol] 14.1 g/dL Normal 12.0-15.0 [facility] Comment on above: Performed By: #### M 100.3000, L100.0100, L3890.6301, L3890.6102, M100.2000, L500.3400, L3890.6202 #### [facility] [address] [place], [address] MCH (RBC) [Entitic mass] 30.0 pg Normal 27.0-32.0 [facility] Comment on above: Performed By: #### M 100.3000, L100.0100, L3890.6301, L3890.6102, M100.2000, L500.3400, L3890.6202 #### [facility] [address] [place], [address] MCHC (RBC) [Mass/Vol] 35.3 g/dL Normal 32-36 [facility] Comment on above: Performed By: #### M 100.3000, L100.0100, L3890.6301, L3890.6102, M100.2000, L500.3400, L3890.6202 #### [facility] [address] [place], [address] MCV (RBC) [Entitic vol] 85.1 fL Normal 81-99 [facility] Comment on above: Performed By: #### M 100.3000, L100.0100, L3890.6301, L3890.6102, M100.2000, L500.3400, L3890.6202 #### [facility] [address] [place], [address] Platelet mean volume (Bld) [Entitic vol] 9.7 fL Normal 6.2-12.0 [facility] Comment on above: Performed By: #### M 100.3000, L100.0100, L3890.6301, L3890.6102, M100.2000, L500.3400, L3890.6202 #### [facility] [address] [place], [address] Platelets (Bld) [#/Vol] 301 10*3/uL Normal 150-450 [facility] Comment on above: Performed By: #### M 100.3000, L100.0100, L3890.6301, L3890.6102, M100.2000, L500.3400, L3890.6202 #### [facility] [address] [place], [address] RBC (Bld) [#/Vol] 4.70 10*6/uL Normal 4.2-5.4 [facility] Comment on above: Performed By: #### M 100.3000, L100.0100, L3890.6301, L3890.6102, M100.2000, L500.3400, L3890.6202 #### [facility] [address] [place], [address] RDW SD 40.0 fl Normal 35.1-43.9 [facility] Comment on above: Performed By: #### M 100.3000, L100.0100, L3890.6301, L3890.6102, M100.1999, L500.3400, L3890.6202 #### [facility] [address] [place], [address] WBC (Bld) [#/Vol] 8.3 10*3/uL Normal 4.4-11.0 [facility] Comment on above: Performed By: #### M 100.3000, L100.0100, L3890.6301, L3890.6102, M100.2000, L500.3400, L3890.6202 #### [facility] [address] [place], [address] Hemoglobin A1con 04-01-2025 HbA1c (Bld) [Mass fraction] 6.3 % High <=5.6 [facility] Comment on above: Result Comment: Norm al < 5.7 % Prediabetic 5.7 - 6.4 % Diabetic >or= 6.5 % Please note range changes. Performed By: #### M 100.3000, L100.0100, L3890.6301, L3890.6102, M100.2000, L500.3400, L3890.6202 #### [facility] [address] [place], [address] Hemoglobin A1c percentageOrd ered By: Anupam Newby on 04-01-2025 HbA1c (Bld) [Mass fraction] 6.3 % High <5.7 [facility] Comment on above: Normal < 5.7 % Predi abetic 5.7 - 6.4 % Diabetic >or= 6.5 % Please note range changes. International normalized rat io (INR) calculationOrdered By: Anupam Newby on 04-01-2025 INR Coag (Bld) [Relative time] 1.0 {INR} [facility] - Chemistry and C hemistry - challengeOrdered By: Anupam Newby on 04-01-2025 AST [Catalytic activity/Vol] 20 U/L <32 [facility] Liver Profileon 04-01-2025 Albumin [Mass/Vol] 4.4 g/dL Normal 3.5-5.0 [facility] Comment on above: Performed By: #### M 100.3000, L100.0100, L3890.6301, L3890.6102, M100.2000, L500.3400, L3890.6202 #### [facility] [address] [place], [address] ALK PHOS 70 U/L Normal 35-104 [facility] Comment on above: Performed By: #### M 100.3000, L100.0100, L3890.6301, L3890.6102, M100.2000, L500.3400, L3890.6202 #### [facility] [address] [place], [address] ALT [Catalytic activity/Vol] 19 U/L Normal <=34 [facility] Comment on above: Performed By: #### M 100.3000, L100.0100, L3890.6301, L3890.6102, M100.2000, L500.3400, L3890.6202 #### [facility] [address] [place], [address] AST [Catalytic activity/Vol] 20 U/L Normal <=31 [facility] Comment on above: Performed By: #### M 100.3000, L100.0100, L3890.6301, L3890.6102, M100.2000, L500.3400, L3890.6202 #### [facility] [address] [place], [address] Bilirubin [Mass/Vol] 0.69 mg/dL Normal 0.00-1.30 [facility] Comment on above: Performed By: #### M 100.3000, L100.0100, L3890.6301, L3890.6102, M100.2000, L500.3400, L3890.6202 #### [facility] [address] [place], [address] Bilirubin.direct [Mass/Vol] 0.26 mg/dL Normal 0.00-0.30 [facility] Comment on above: Performed By: #### M 100.3000, L100.0100, L3890.6301, L3890.6102, M100.2000, L500.3400, L3890.6202 #### [facility] [address] [place], [address] Globulin (S) [Mass/Vol] 2.5 g/dL Normal 2.2-4.2 [facility] Comment on above: Performed By: #### M 100.3000, L100.0100, L3890.6301, L3890.6102, M100.2000, L500.3400, L3890.6202 #### [facility] [address] [place], [address] T PROT 6.8 g/dL Normal 5.9-8.4 [facility] Comment on above: Performed By: #### M 100.3000, L100.0100, L3890.6301, L3890.6102, M100.2000, L500.3400, L3890.6202 #### [facility] [address] [place], [address] Partial Thromboplast Timeon 04-01-2025 aPTT Coag (Bld) [Time] 25.2 s Normal 24.1-36.2 [facility] Comment on above: Performed By: #### M 100.3000, L100.0100, L3890.6301, L3890.6102, M100.2000, L500.3400, L3890.6202 #### [facility] [address] [place], [address] Prothrombin Time w/INRon INR Coag (PPP) [Relative time] 1.0 {INR} Normal [facility] Comment on above: Performed By: #### M 100.3000, L100.0100, L3890.6301, L3890.6102, M100.2000, L500.3400, L3890.6202 #### [facility] [address] [place], [address] PT Coag (PPP) [Time] 13.3 s Normal 11.7-14.9 [facility] Comment on above: Performed By: #### M 100.3000, L100.0100, L3890.6301, L3890.6102, M100.1999, L500.3400, L3890.6202 #### [facility] [address] [place], [place], [address] Prothrombin timeOrdered By: Anupam Newby on 04-01-2025 PT Coag (PPP) [Time] 13.3 s 11.7-14.9 [facility] Serum globulin measurementOr dered By: Anupam Newby on 04-01-2025 Globulin (S) [Mass/Vol] 2.5 g/dL 2.2-4.[address] [facility] Serum or plasma alanine coffey otransferase (ALT) measurementOrdered By: Anupam Newby on 04-01-2025 ALT [Catalytic activity/Vol] 19 U/L <35 [facility] Serum or plasma albumin madyson urement (mass/volume)Ordered By: Anupam Newby on 04-01-2025 Albumin [Mass/Vol] 4.4 g/dL 3.5-5.0 [facility] Serum or plasma alkaline rolando sphatase measurementOrdered By: Anupam Newby on 04-01-2025 ALP [Catalytic activity/Vol] 70 U/L 35-104 [facility] Total proteinOrdered By: Isrrael Newby on 04-01-2025 Protein [Mass/Vol] 6.8 g/dL 5.9-8.4 [facility] Plastic Surgery Visit Report on 02-27-2025 Plastic Surgery Visit Report [facility] Plastic Reconstructive Surgery [address] [place] [address] OFFICE VISIT Date of Service: 02/27/25 MR#: [id number] Acct: [id number] Name: PATRIA JOHNSON Rep #: [id number] : 1970 Provider: Dr. Yannick Bourne MD Age/Sex: 54/F Location: [facility] Status: Signed Intake Vital Signs 12/26/24 14:10 [...] 12/26/24 02/27/25 History subcutaneous pen injector (Mounjaro) [facility] Medical History Contraceptive management GERD (gastroesophageal reflux [...] and alternatives (more content not included)... Normal [facility] Breast imaging reportOrdered By: Chacho Last on 01-14-2025 Study report [facility] Imaging Services [address] [place], [place] [address] SCRN MAMM (CAD)W/ZOLTAN GALLEGOS MR#: [id number] Acct: [id number] Name: GLORIAPATRIA RIGOBERTO Rep #: [id number] : 1970 F 54 From: Bautista Last MD PCP: Clemencia Guadalupe DO Status: REG CLI Study:SCRN MAMM (CAD)W/ZOLTAN BILAT Date of Exa m: 01/13/25 Exam# [id number] Ordering Dr: Santa Burk NP EXAM: SCRN [...] FOLLOW-UP Bilateral in 1 Year Reading Location: [place] [address] CC: MAGDA Burk; Clemencia Guadalupe DO ~ 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: Signed [facility] SCRN MAMM (CAD)W/ZOLTAN BILATo n 01-13-2025 SCRN MAMM (CAD)W/ZOLTAN BILAT [facility] Imaging Services [address] [place] [id number] SCRN MAMM (CAD)W/ZOLTAN BILAT MR#: [id number] Acct: [id number] Name: PATRIA JOHNSON Rep #: [id number] : 1970 F 54 From: Chacho holland MD PCP: Clemencia Guadalupe DO Status: REG CLI Study: SCRN MAMM (CAD)W/ZOLTAN BILAT Date of Exam: 12/28 05/23 Exam# [id number] Ordering Dr: Santa Burk NP ASSOCIATE DIRECTOR OF NURSING-C EXAM: SCRN MAMM (CAD)W/ZOLTAN BILAT DATE: 01/13/2025 [...] FOLLOW-UP Bilateral in 1 Year Reading Location: [place] [address] CC: ASSOCIATE DIRECTOR OF NURSINGEpiC Santa Burk; Clemencia Guadalupe DO 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: Signed Normal [facility] Plastic Surgery Visit Report on 12-26-2024 Plastic Surgery Visit Report [facility] Plastic Reconstructive Surgery [address] [place] [address], [address] [place] [address] OFFICE VISIT Date of Service: 12/26/24 MR#: [id number] Acct: [id number] Name: PATRIA JOHNSON Rep #: [id number] : 1970 Provider: Dr. Yannick Bourne MD Age/Sex: 54/F Location: [facility] Status: Signed Intake Vital Signs 01/18/23 15:50 [...] evaluation for breast reduction consult and abdominoplasty [facility] Medical History Contraceptive management GERD (gastroesophageal reflux [...] disease, gabriela (more content not included)... Normal [facility] CBC W Auto Differential pane l (Bld)on 05-20-2024 Basophils (Bld) [#/Vol] 10*3/uL Normal <0.11 [facility] Comment on above: Order Comment: Speci men Type: BLOOD SPECIMEN Ordering Facility: [facility] Address: [address] [place] [address] Performed By: #### 5 7021-8 #### [facility] CLIA [id number] [address] [place] [address] [place] Basophils/100 WBC (Bld) 0.2 % Normal [facility] Comment on above: Order Comment: Speci men Type: BLOOD SPECIMEN Ordering Facility: [facility] Address: [address] [place] [address] Performed By: #### 5 7021-8 #### [facility] CLIA [id number] [address] [place] [address] [place] Differential cell count method Nom (Bld) Auto Normal [facility] Comment on above: Order Comment: Speci men Type: BLOOD SPECIMEN Ordering Facility: [facility] Address: [address] [place] [address] Performed By: #### 5 7021-8 #### [facility] CLIA [id number] [address] [place] [address] [place] Eosinophils (Bld) [#/Vol] 0.51 10*3/uL High <0.46 [facility] Comment on above: Order Comment: Speci men Type: BLOOD SPECIMEN Ordering Facility: [facility] Address: [address] [place] [address] Performed By: #### 5 7021-8 #### [facility] CLIA [id number] [address] [place] [address] [place] Eosinophils/100 WBC (Bld) 4.8 % Normal [facility] Comment on above: Order Comment: Speci men Type: BLOOD SPECIMEN Ordering Facility: [facility] Address: [address] [place], [place] [id number] Performed By: #### 5 7021-8 #### [facility] CLIA [id number] [address] [place] [address] [place] Erythrocyte distribution width (RBC) [Ratio] 12.8 % Normal 11.5-15.0 [facility] Comment on above: Order Comment: Speci men Type: BLOOD SPECIMEN Ordering Facility: [facility] Address: [address] [place] [address] Performed By: #### 5 7021-8 #### [facility] CLIA [id number] [address] [place] [address] [place] Hematocrit (Bld) [Volume fraction] 44.2 % Normal 36.0-46.0 [facility] Comment on above: Order Comment: Speci men Type: BLOOD SPECIMEN Ordering Facility: [facility] Address: [address] [place] [address] Performed By: #### 5 7021-8 #### [facility] [facility] CLIA [id number] [address] [place] [address] [place] Hemoglobin (Bld) [Mass/Vol] 15.0 g/dL Normal 11.5-15.5 [facility] Comment on above: Order Comment: Speci men Type: BLOOD SPECIMEN Ordering Facility: [facility] Address: [address] [place] [address] Performed By: #### 5 7021-8 #### [facility] CLIA [id number] [address] [place] [address] [place] Immature granulocytes (Bld) [#/Vol] 0.05 10*3/uL Normal <0.10 [facility] Comment on above: Order Comment: Speci men Type: BLOOD SPECIMEN Ordering Facility: [facility] Address: [address] [place] [address] Performed By: #### 5 7021-8 #### [facility] CLIA [id number] [address] [place] [address] [place] Immature granulocytes/100 WBC (Bld) 0.5 % Normal [facility] Comment on above: Order Comment: Speci men Type: BLOOD SPECIMEN Ordering Facility: [facility] Address: [address] [place] [address] Performed By: #### 5 7021-8 #### [facility] CLIA [id number] [address] [place] [address] [place] Lymphocytes (Bld) [#/Vol] 1.69 10*3/uL Normal 1.00-4.00 [facility] Comment on above: Order Comment: Speci men Type: BLOOD SPECIMEN Ordering Facility: [facility] Address: [address] [place] [address] Performed By: #### 5 7021-8 #### [facility] CLIA [id number] [address] [place] [address] [facility] [place] Lymphocytes/100 WBC (Bld) 15.9 % Normal [facility] Comment on above: Order Comment: Speci men Type: BLOOD SPECIMEN Ordering Facility: [facility] Address: [address] [place] [address] Performed By: #### 5 7021-8 #### [facility] CLIA [id number] [address] [place] [address] [place] MCH (RBC) [Entitic mass] 30.4 pg Normal 26.0-34.0 [facility] Comment on above: Order Comment: Speci men Type: BLOOD SPECIMEN Ordering Facility: [facility] Address: [address] [place] [address] Performed By: #### 5 7021-8 #### [facility] CLIA [id number] [address] [place] [address] [place] MCHC (RBC) [Mass/Vol] 33.9 g/dL Normal 30.5-36.0 [facility] Comment on above: Order Comment: Speci men Type: BLOOD SPECIMEN Ordering Facility: [facility] Address: [address] [place] [address] Performed By: #### 5 7021-8 #### [facility] CLIA [id number] [address] [place] [address] [place] MCV (RBC) [Entitic vol] 89.7 fL Normal 80.0-100.0 [facility] Comment on above: Order Comment: Speci men Type: BLOOD SPECIMEN Ordering Facility: [facility] Address: [address] [place] [address] Performed By: #### 5 7021-8 #### [facility] CLIA [id number] [address] [place] [address] [place] Monocytes (Bld) [#/Vol] 0.66 10*3/uL Normal <0.87 [facility] Comment on above: Order Comment: Speci men Type: BLOOD SPECIMEN Ordering Facility: [facility] Address: [address] [place] [address] Performed By: #### 5 7021-8 #### [facility] CLIA [id number] [address] [place] [address] [place] Monocytes/100 WBC (Bld) 6.2 % Normal [facility] Comment on above: Order Comment: Speci men Type: BLOOD SPECIMEN Ordering Facility: [facility] Address: [address] [place] [address] Performed By: #### 5 7021-8 #### [facility] CLIA [id number] [address] [place] [address] [place] Neutrophils (Bld) [#/Vol] 7.70 10*3/uL High 1.45-7.50 [facility] Comment on above: Order Comment: Speci men Type: BLOOD SPECIMEN Ordering Facility: [facility] Address: [address] [place] [address] Performed By: #### 5 7021-8 #### [facility] CLIA [id number] [address] [place] [address] [place] Neutrophils/100 WBC (Bld) 72.4 % Normal [facility] Comment on above: Order Comment: Speci men Type: BLOOD SPECIMEN Ordering Facility: [facility] Address: [address] [place] [address] Performed By: #### 5 7021-8 #### [facility] CLIA [id number] [address] [place] [address] [place] Nucleated RBC (Bld) [#/Vol] Normal [facility] Comment on above: Order Comment: Speci men Type: BLOOD SPECIMEN Ordering Facility: [facility] Address: [address] [place] [address] Performed By: #### 5 7021-8 #### [facility] CLIA [id number] [address] [place] [address] [place] Nucleated RBC/100 WBC (Bld) [Ratio] Normal [facility] Comment on above: Order Comment: Speci men Type: BLOOD SPECIMEN Ordering Facility: [facility] Address: [address] [place] [address] Performed By: #### 5 7021-8 #### [facility] CLIA [id number] [address] [place] [address] [place] Platelet mean volume (Bld) [Entitic vol] 9.2 fL Normal 9.0-12.7 [facility] Comment on above: Order Comment: Speci men Type: BLOOD SPECIMEN Ordering Facility: [facility] Address: [address] [place] [address] Performed By: #### 5 7021-8 #### [facility] CLIA [id number] [address] [place] [address] [place] Platelets (Bld) [#/Vol] 306 10*3/uL Normal 150-400 [facility] Comment on above: Order Comment: Speci men Type: BLOOD SPECIMEN Ordering Facility: [facility] Address: [address] [place] [address] Performed By: #### 5 7021-8 #### [facility] CLIA [id number] [address] [place] [address] [place] RBC (Bld) [#/Vol] 4.93 10*6/uL Normal 3.90-5.20 [facility] Comment on above: Order Comment: Speci men Type: BLOOD SPECIMEN Ordering Facility: [facility] Address: [address] [place] [address] Performed By: #### 5 7021-8 #### [facility] CLIA [id number] [address] [place] [address] [facility] WBC (Bld) [#/Vol] 10.63 10*3/uL Normal 3.70-11.00 [facility] Comment on above: Order Comment: Speci men Type: BLOOD SPECIMEN Ordering Facility: [facility] Address: [address] [place], [place] [address] Performed By: #### 5 7021-8 #### [facility] CLIA [id number] [address] [place] [address] [facility] Comprehensive metabolic 2000 panelon 05-20-2024 Albumin [Mass/Vol] 4.3 g/dL Normal 3.9-4.9 [facility] Comment on above: Order Comment: Speci men Type: BLOOD SPECIMEN Ordering Facility: [facility] Address: [address] [place] [address] Performed By: #### 2 4323-8, 3040-3, #### [facility] CLIA [id number] [address] [place] [address] [place] [facility] ALP [Catalytic activity/Vol] 77 U/L Normal 34-123 [facility] Comment on above: Order Comment: Speci men Type: BLOOD SPECIMEN Ordering Facility: [facility] Address: [address] [id number] Performed By: #### 2 4323-8, 3040-3, 55002-8 #### [facility] CLIA [id number] [address] [place] [address] [facility] ALT With P-5'-P [Catalytic activity/Vol] 19 U/L Normal 7-38 [facility] Comment on above: Order Comment: Speci men Type: BLOOD SPECIMEN Ordering Facility: [facility] Address: [address] [place] [address] Performed By: #### 2 4323-8, 3040-3, #### [facility] CLIA [id number] [address] [place] [address] [place] Anion gap [Moles/Vol] 11 mmol/L Normal 8-15 [facility] Comment on above: Order Comment: Speci men Type: BLOOD SPECIMEN Ordering Facility: [facility] Address: [address] [place] [address] Performed By: #### 2 4323-8, 0-3, #### [facility] CLIA [id number] [address] [place] [address] [place] AST With P-5'-P [Catalytic activity/Vol] 17 U/L Normal 13-35 [facility] Comment on above: Order Comment: Speci men Type: BLOOD SPECIMEN Ordering Facility: [facility] Address: [address] [place] [address] Performed By: #### 2 4323-8, 3039-3, #### [facility] CLIA [id number] [address] [place] [address] [place] Bilirubin [Mass/Vol] 1.2 mg/dL Normal 0.2-1.3 [facility] Comment on above: Order Comment: Speci men Type: BLOOD SPECIMEN Ordering Facility: [facility] Address: [address] [place] [address] Performed By: #### 2 4323-8, 0-3, #### [facility] CLIA [id number] [address] [place] [address] [place] Calcium [Mass/Vol] 9.0 mg/dL Normal 8.5-10.2 [facility] Comment on above: Order Comment: Speci men Type: BLOOD SPECIMEN Ordering Facility: [facility] Address: [address] [place] [address] Performed By: #### 2 4323-8, 3040-3, #### [facility] CLIA [id number] [address] [place] [address] [place] Chloride [Moles/Vol] 98 mmol/L Normal 98-107 [facility] Comment on above: Order Comment: Specruperto madsen Type: BLOOD SPECIMEN Ordering Facility: [facility] Address: [address] [place] [address] Performed By: #### 2 4323-8, 3040-3, 45727-2 #### [facility] CLIA [id number] [address] [place] [address] [place] CO2 [Moles/Vol] 27 mmol/L Normal 22-30 [facility] Comment on above: Order Comment: Ivan madsen Type: BLOOD SPECIMEN Ordering Facility: [facility] Address: [address] [place] [address] Performed By: #### 2 4323-8, 3040-3, 52014-3 #### [facility] CLIA [id number] [address] [place] [address] [facility] Creatinine [Mass/Vol] 0.89 mg/dL Normal 0.58-0.96 [facility] Comment on above: Order Comment: Ivan madsen Type: BLOOD SPECIMEN Ordering Facility: [facility] Address: [address] [place] [address] Performed By: #### 2 4323-8, 3040-3, 89133-3 #### [facility] CLIA [id number] [address] [place] [address] [facility] Creatinine and Glomerular filtration rate.predicted panel (S/P/Bld) 78 mL/min/1.73m??? Normal >=60 [facility] Comment on above: Order Comment: Speci men Type: BLOOD SPECIMEN Ordering Facility: [facility] Address: [address] [place] [address] Result Comment: Mimi mated Glomerular Filtration Rate [...] Performed By: #### 2 4323-8, 3039-3, #### [facility] CLIA [id number] [address] [place] [address] [place] Glucose [Mass/Vol] 137 mg/dL High 74-99 [facility] Comment on above: Order Comment: Ivan madsen Type: BLOOD SPECIMEN Ordering Facility: [facility] Address: [address] [place] [address] Result Comment: The [place] Diabetes Association (ADA) provides guidance for cutoff [...] Standards of Medical Care in Diabetes 2016, [place] [employer]. Diabetes Care. 2016.39(Suppl 1). Performed By: #### 2 4323-8, 3, #### [facility] CLIA [id number] [address] [place] [address] [place] Potassium [Moles/Vol] 4.3 mmol/L Normal 3.7-5.1 [facility] Comment on above: Order Comment: Ivan madsen Type: BLOOD SPECIMEN Ordering Facility: [facility] Address: [address] [place] [address] Performed By: #### 2 4323-8, 3, #### [facility] CLIA [id number] [address] [place] [address] [place] Protein [Mass/Vol] 7.2 g/dL Normal 6.3-8.0 [facility] Comment on above: Order Comment: Speci men Type: BLOOD SPECIMEN Ordering Facility: [facility] Address: [address] [place] [address] Performed By: #### 2 4323-8, 3040-3, #### [facility] CLIA [id number] [address] [place] [address] [facility] Sodium [Moles/Vol] 136 mmol/L Normal 136-144 [facility] Comment on above: Order Comment: Speci men Type: BLOOD SPECIMEN Ordering Facility: [facility] Address: [address] [place], [place] [address] Performed By: #### 2 4323-8, 0-3, #### [facility] CLIA [id number] [address] [place] [address] [facility] Urea nitrogen [Mass/Vol] 13 mg/dL Normal 7-21 [facility] Comment on above: Order Comment: Speci men Type: BLOOD SPECIMEN Ordering Facility: [facility] Address: [address] [place], [place] [id number] Performed By: #### 2 4323-8, 0-3, #### [facility] CLIA [id number] [address] [place] [address] [facility] ED PROV NOTEon 05-20-2024 ED PROV NOTE HNO ID: [id number] Author: CAROLINA SANTANA MD Service: Emergency Medicine [...] History obtain (more content not included)... Normal [facility] Lipase SerPl-cCncon 05-20-20 24 Lipase [Catalytic activity/Vol] 39 U/L Normal 16-61 [facility] Comment on above: Order Comment: Ivan madsen Type: BLOOD SPECIMEN Ordering Facility: [facility] Address: [address] [place], [place] [address] Performed By: #### 2 4323-8, 3040-3, 22196-9 #### [facility] CLIA [id number] [address] [place], [place] [address] [place] Magnesium SerPl-mCncon 05-20 Magnesium [Mass/Vol] 2.0 mg/dL Normal 1.7-2.3 [facility] Comment on above: Order Comment: Speci men Type: BLOOD SPECIMEN Ordering Facility: [facility] Address: [address] [place] [address] Performed By: #### 2 4323-8, 3040-3, 59943-0 #### [facility] CLIA [id number] [address] [place] [address] [place] Urinalysis complete panel (U )on 05-20-2024 Bacteria LM.HPF (Urine sed) [#/Area] Rare Abnormal None Seen [facility] Comment on above: Order Comment: Speci men Type: URINE SPECIMEN Ordering Facility: [facility] Address: [address] [place] [address] Performed By: #### 2 4356-8 #### [facility] CLIA [id number] [address] [place] [id number] [place] [facility] Bilirubin Ql (U) Negative Normal Negative [facility] Comment on above: Order Comment: Speci men Type: URINE SPECIMEN Ordering Facility: [facility] Address: [address] [place] [address] Performed By: #### 2 4356-8 #### [facility] CLIA [id number] [address] [place] [address] [facility] [place] Clarity (Unsp spec) Slightly Cloudy Abnormal Clear [facility] Comment on above: Order Comment: Speci men Type: URINE SPECIMEN Ordering Facility: [facility] Address: [address] [place] [address] Performed By: #### 2 4356-8 #### [facility] CLIA [id number] [address] [place] [address] [facility] [place] Color (U) Yellow Normal Yellow [facility] Comment on above: Order Comment: Speci men Type: URINE SPECIMEN Ordering Facility: [facility] Address: [address] [place] [address] Performed By: #### 2 4356-8 #### [facility] CLIA [id number] [address] [place] [address] [facility] [place] Epithelial cells LM.HPF (Urine sed) [#/Area] Moderate Normal [facility] Comment on above: Order Comment: Speci men Type: URINE SPECIMEN Ordering Facility: [facility] Address: [address] [place] [address] Performed By: #### 2 4356-8 #### [facility] CLIA [id number] [address] [place] [address] [facility] Glucose Test strip (U) [Mass/Vol] Negative Normal Negative [facility] Comment on above: Order Comment: Speci men Type: URINE SPECIMEN Ordering Facility: [facility] Address: [address] [place] [address] Performed By: #### 2 4356-8 #### [facility] CLIA [id number] [address] [place] [address] [facility] Hemoglobin Ql (U) Negative Normal Negative [facility] Comment on above: Order Comment: Speci men Type: URINE SPECIMEN Ordering Facility: [facility] Address: [address] [place] [address] Performed By: #### 2 4356-8 #### [facility] CLIA [id number] [address] [place] [address] [facility] Ketones Ql (U) 2+ Abnormal Negative [facility] Comment on above: Order Comment: Speci men Type: URINE SPECIMEN Ordering Facility: [facility] Address: [address] [place] [address] Performed By: #### 2 4356-8 #### [facility] CLIA [id number] [address] [place] [address] [facility] [place] Leukocyte esterase Test strip Ql (U) Negative Normal Negative [facility] Comment on above: Order Comment: Speci men Type: URINE SPECIMEN Ordering Facility: [facility] Address: [address] [place] [address] Performed By: #### 2 4356-8 #### [facility] CLIA [id number] [address] [place] [address] [place] Nitrite Ql (U) Negative Normal Negative [facility] Comment on above: Order Comment: Speci men Type: URINE SPECIMEN Ordering Facility: [facility] Address: [address] [place] [address] Performed By: #### 2 4356-8 #### [facility] CLIA [id number] [address] [place] [address] [place] [facility] pH (U) 7.0 [pH] Normal 5.0-8.0 [facility] Comment on above: Order Comment: Speci men Type: URINE SPECIMEN Ordering Facility: [facility] Address: [address] [place] [address] Performed By: #### 2 4356-8 #### [facility] CLIA [id number] [address] [place] [address] [place] [facility] Protein (U) [Mass/Vol] Negative Normal Negative [facility] Comment on above: Order Comment: Speci men Type: URINE SPECIMEN Ordering Facility: [facility] Address: [address] [place] [address] Performed By: #### 2 4356-8 #### [facility] CLIA [id number] [address] [place] [address] [place] [facility] RBC LM.HPF (Urine sed) [#/Area] 0-3 /HPF Normal 0-3 /HPF [facility] Comment on above: Order Comment: Speci men Type: URINE SPECIMEN Ordering Facility: [facility] Address: [address] [place] [address] Performed By: #### 2 4356-8 #### [facility] CLIA [id number] [address] [place] [address] [place] Specific gravity (U) [Rel density] 1.020 Normal 1.005-1.030 [facility] Comment on above: Order Comment: Speci men Type: URINE SPECIMEN Ordering Facility: [facility] Address: [address] [place] [address] Performed By: #### 2 4356-8 #### [facility] CLIA [id number] [address] [place] [address] [place] Urobilinogen Ql (U) 0.2 EU/dL Normal 0.2-1.0 EU/dL [facility] Comment on above: Order Comment: Speci men Type: URINE SPECIMEN Ordering Facility: [facility] Address: [address] [place] [address] Performed By: #### 2 4356-8 #### [facility] CLIA [id number] [address] [place] [address] [facility] [place] WBC LM.HPF (Urine sed) [#/Area] 0-5 /HPF Normal 0-5 /HPF [facility] Comment on above: Order Comment: Speci men Type: URINE SPECIMEN Ordering Facility: [facility] Address: [address] [place] [address] Performed By: #### 2 4356-8 #### [facility] CLIA [id number] [address] [place] [address] [facility] Basophil percentageOrdered B y: Gin Guadalupe on 03-02-2023 Potassium [Moles/Vol] 3.7 mmol/L 3.5-5.1 [facility] Absolute lymphocyte countOrd ered By: Gin Guadalupe on 02-15-2023 Lymphocytes Auto (Unsp spec) [#/Vol] 3.57 10*3/uL 0.83-4.51 [facility] Basophil percentageOrdered B y: Gin Guadalupe on 02-15-2023 Basophils/100 WBC (Bld) 0.7 % 0-1 [facility] Bilirubin [Mass/Vol] 0.80 mg/dL 0.20-1.00 [facility] Comment on above: For patients on eltr ombopag therapy, use of Dimension [place] TBIL is not recommended. Chloride [Moles/Vol] 104 mmol/L 98-107 [facility] Eosinophils/100 WBC (Bld) 4.0 % 0-5 [facility] Glucose [Mass/Vol] 135 mg/dL 74-106 [facility] Comment on above: Fasting Glucose resu lt greater than or equal to 126 mg/dL suggests DIABETES MELLITUS per A.D.A. criteria. Neutrophils (Bld) [#/Vol] 5.2 10*3/uL 2.0-7.7 [facility] Neutrophils/100 WBC (Bld) 52.0 % 47-70 [facility] Potassium [Moles/Vol] 3.3 mmol/L 3.5-5.1 [facility] Protein [Mass/Vol] 7.3 g/dL 6.4-8.2 [facility] Sodium [Moles/Vol] 136 mmol/L 136-145 [facility] WBC (Bld) [#/Vol] 9.9 10*3/uL 4.4-11.0 [facility] Blood erythrocytes count (nu mber/volume)Ordered By: Gin Guadalupe on 02-15-2023 RBC (Bld) [#/Vol] 4.99 10*6/uL 4.2-5.4 [facility] Blood hemoglobin measurement (mass/volume)Ordered By: Gin Guadalupe on 02-15-2023 Hemoglobin (Bld) [Mass/Vol] 14.7 g/dL 12.0-15.0 [facility] Blood lymphocytes/100 leukoc ytesOrdered By: Gin Guadalupe on 02-15-2023 Lymphocytes/100 WBC (Bld) 35.9 % 19-41 [facility] Blood monocytes/100 leukocyt esOrdered By: Gin Guadalupe on 02-15-2023 Monocytes/100 WBC (Bld) 6.9 % 0-[address] [facility] Blood platelet mean volumeOr dered By: Gin Guadalupe on 02-15-2023 Platelet mean volume (Bld) [Entitic vol] 10.1 fL 6.2-12.0 [facility] Determination of erythrocyte mean corpuscular volume (MCV)Ordered By: Gin Guadalupe on 02-15-2023 MCV (RBC) [Entitic vol] 87.4 fL 81-[address] [facility] Hematocrit Auto (Bld) [Volum e fraction]Ordered By: Gin Guadalupe on 02-15-2023 Hematocrit (Bld) [Volume fraction] 43.6 % 37-47 [facility] - Chemistry and C hemistry - challengeOrdered By: Gin Guadalupe on 02-15-2023 ALP [Catalytic activity/Vol] 70 U/L 45-117 [facility] ALT [Catalytic activity/Vol] 31 U/L 13-56 [facility] CO2 [Moles/Vol] 26.0 mmol/L 21.0-32.0 [facility] Globulin (S) [Mass/Vol] 3.5 g/dL 2.2-4.[address] [facility] Urea nitrogen/Creatinine [Mass ratio] 12.3 mg/mg 10-20 [facility] - Hematology and Cell countsOrdered By: Gin Guadalupe on 02-15-2023 Erythrocyte distribution width (RBC) [Entitic vol] 41.1 fL 35.1-43.9 [facility] Erythrocyte distribution width (RBC) [Ratio] 13.0 % 11.6-14.6 [facility] Immature granulocytes/100 WBC (Bld) 0.500 % 0.0-0.9 [facility] Comment on above: IG% - Immature Granu locytes (promyelocytes, myelocytes and metamyelocytes) > 1% indicates that a LEFT SHIFT is Present. MCH (RBC) [Entitic mass] 29.5 pg 27.0-32.0 [facility] Nucleated RBC/100 WBC (Bld) [Ratio] 0 % 0-5 [facility] MCHC Auto (RBC) [Mass/Vol]Or dered By: Gin Guadalupe on 02-15-2023 MCHC (RBC) [Mass/Vol] 33.7 g/dL 32-36 [facility] No Panel InformationOrdered By: Gin Guadalupe on 02-15-2023 Estimated GFR (MDRD) Amer 85 mL/min >60 [facility] Comment on above: GFR Calc Estimated GFR (MDRD) Non-Af Amer 71 mL/min >60 [facility] Comment on above: Non- GFR Calc Thyroid Stimulating Hormone (TSH) 0.91 uIU/mL 0.358-3.74 [facility] Platelets bldOrdered By: Lalito Guadalupe on 02-15-2023 Platelets (Bld) [#/Vol] 329 10*3/uL 150-450 [facility] Serum or plasma albumin madyson urement (mass/volume)Ordered By: Gin Guadalupe on 02-15-2023 Albumin [Mass/Vol] 3.8 g/dL 3.2-5.0 [facility] Serum or plasma albumin/glob ulin mass ratioOrdered By: Gin Guadalupe on 02-15-2023 Albumin/Globulin [Mass ratio] 1.1 {ratio} 0.9-2.4 [facility] Serum or plasma calcium madyson urement (mass/volume)Ordered By: Gin Guadalupe on 02-15-2023 Calcium [Mass/Vol] 9.3 mg/dL 8.5-10.1 [facility] Serum or plasma creatinine m easurement (mass/volume)Ordered By: Gin Guadalupe on 02-15-2023 Creatinine [Mass/Vol] 0.90 mg/dL 0.55-1.02 [facility] Comment on above: The validity of the calculated GFR & GFRAA in patients over 70 years has not been determined. Clinical correlation is essential. Serum or plasma urea nitroge n measurement (mass/volume)Ordered By: Gin Guadalupe on 02-15-2023 Urea nitrogen [Mass/Vol] 11 mg/dL 7-18 [facility] Thin prep Papanicolaou smear with manual screeningOrdered By: Gin Guadalupe on 02-15-2023 Thin prep Papanicolaou smear with manual screening 24 U/L 15-37 [facility] Thin prep Papanicolaou smear with manual screening 6 5-15 [facility] Thin prep Papanicolaou smear with manual screening 6.8 mg/L NO RANGE EST. [facility] Whole blood hemoglobin A1c/t otal hemoglobin ratio (mass fraction)Ordered By: Gin Guadalupe on 02-15-2023 HbA1c (Bld) [Mass fraction] 7.5 % 3.8-5.6 [facility] Comment on above: Normal < 5.7 % Predi abetic 5.7 - 6.4 % Diabetic >or= 6.5 % Please note range changes. Basophil percentageOrdered B y: Dr. Majano on 02-02-2023 Cholesterol [Mass/Vol] 182 mg/dL <200 [facility] Comment on above: <200 mg/dL Desirable [...] 02-02-2023 Free T4 [Mass/Vol] 1.11 ng/dL 0.76-1.46 [facility] No Panel InformationOrdered By: Dr. Majano on 02-02-2023 Follicle Stimulating Hormone 15.5 mIU/mL [facility] Comment on above: NORMAL REFERENCE RAN GES FEMALE FOLLICULAR 2.3 - 12.6 mIU/mL MID-CYCLE PEAK 5.2 - 17.5 mIU/mL LUTEAL 1.7 - 12.9 mIU/mL POST-MENOPAUSAL ON MHT 5.9 - 72.8 mIU/mL NOT ON MHT 12.7 - 132.2 mlU/mL MALE 0.7 - 10.8 mIU/mL Luteinizing Hormone 7.5 mIU/mL [facility] Comment on above: NORMAL REFERENCE RAN GES FEMALE FOLLICULAR 1.9 - 26.2 mIU/mL MID-CYCLE PEAK 22.8 - 76.1 mIU/mL LUTEAL 0.6 - 16.6 mIU/mL POST-MENOPAUSAL ON MHT 1.1 - 52.4 mIU/mL NOT ON MHT 8.6 - 61.8 mIU/mL MALE 1.2 - 10.6 mIU/mL Thyroid Stimulating Hormone (TSH) 0.86 uIU/mL 0.358-3.74 [facility] Vitamin D 25-Hydroxy 34.8 ng/mL [facility] Comment on above: Vitamin D 25(OH) Sta tus Range Deficiency <20 ng/mL (50nmol/L) Insufficiency 20 - 30 ng/mL (50 - 75 nmol/L) Sufficiency 30 - 100 ng/mL (75 - 250 nmol/L) Toxicity >100 ng/mL (>250 nmol/L) Serum or plasma cholesterol in HDL measurement (mass/volume)Ordered By: Dr. Majano on 02-02-2023 Cholesterol in HDL [Mass/Vol] 31 mg/dL >40 [facility] Comment on above: The drugs N-Acetylcy steine and Metamizole may falsely depress this assay. Reference Range HDL <40 mg/dL Low HDL Cholesterol HDL >or= 60 mg/dL High HDL Cholesterol Serum or plasma cholesterol in VLDL measurement (mass/volume)Ordered By: Dr. Majano on 02-02-2023 Cholesterol in VLDL [Mass/Vol] 33 mg/dL 5-40 [facility] Serum or plasma low density lipoprotein (LDL) cholesterol measurement (mass/volume)Ordered By: Dr. Majano on 02-02-2023 Cholesterol in LDL [Mass/Vol] 118 mg/dL 0-130 [facility] Cervical or vagninal specime n microscopic examination by cytology stain (reported asOrdered By: Dr. Majano on 01-18-2023 Cytology report Cyto stain Doc (Cvx/Vag) Comment . [facility] Comment on above: The Pap smear [...] DNA Probe+sig amp Ql (Cvx) Negative Negative [facility] Comment on above: This nucleic acid am plification test detects fourteen high-risk HPV types (16,18,31,33,35,39,45,51,52,56,58,59,66,68)without differentiation. Laboratory - CytologyOrdered By: Dr. Majano on 01-18-2023 Hygiene Assistant Cyto stain Nom (Cvx/Vag) [ID] Comment . [facility] Comment on above: Scotty Haney totechnologist (ASCP) Laboratory - Miscellaneous t estsOrdered By: Dr. Majano on 01-18-2023 Service comment (Unsp spec) [Interp] Comment . [facility] Comment on above: This liquid based Th inPrep(R) pap test was screened withthe use of an image guided system. Service comment (Unsp spec) [Interp] . . [facility] Liquid-based cerv Pap + CT/G C by DIVINA w reflex to high-risk HPV for ASCUSOrdered By: Dr. Majano on 01-18-2023 Cytology report Cyto stain.thin prep Doc (Cvx/Vag) Comment . [facility] Comment on above: Criteria not met, HP V Genotype not performed.Performed at: [facility] [id number] Director: Zuleika Hickey MD, Phone: [phone] at: =[facility] - [facility] [id number] Director: Zuleika Hickey MD, Phone: [phone] No Panel InformationOrdered By: Dr. Majano on 01-18-2023 Pathology report final diagnosis Narrative Comment . [facility] Comment on above: NEGATIVE FOR INTRAEP ITHELIAL LESION OR MALIGNANCY.PREDOMINANCE OF COCCOBACILLI CONSISTENT WITH SHIFT IN VAGINAL ELIZABETH ISPRESENT. Absolute lymphocyte counton 01-31-2022 Lymphocytes Auto (Unsp spec) [#/Vol] 3.57 10*3/uL 0.83-4.51 [facility] Work Phone: Basophil percentageon 2021 Basophils/100 WBC (Bld) 0.6 % 0-[address] [facility] Work Phone: Bilirubin [Mass/Vol] 0.50 mg/dL 0.20-1.00 [facility] Work Phone: Comment on above: For patients on eltr ombopag therapy, use of Dimension [place] TBIL is not recommended. Chloride [Moles/Vol] 101 mmol/L 98-107 [facility] Work Phone: Eosinophils/100 WBC (Bld) 2.6 % 0-5 [facility] Work Phone: Glucose [Mass/Vol] 106 mg/dL 74-106 [facility] Work Phone: Comment on above: Fasting Glucose resu lt from 100 to 125 mg/dL suggests IMPAIRED HOMEOSTASIS per A.D.A. criteria. Neutrophils (Bld) [#/Vol] 7.2 10*3/uL 2.0-7.7 [facility] Work Phone: Neutrophils/100 WBC (Bld) 58.8 % 47-70 [facility] Work Phone: Potassium [Moles/Vol] 3.6 mmol/L 3.5-5.1 [facility]: Protein [Mass/Vol] 7.5 g/dL 6.4-8.[address] [facility] [facility] Work Phone: Sodium [Moles/Vol] 136 mmol/L 136-145 [facility] Work Phone: WBC (Bld) [#/Vol] 12.3 10*3/uL 4.4-11.0 [facility] Work Phone: Blood erythrocytes count (nu mber/volume)on 01-31-2022 RBC (Bld) [#/Vol] 4.91 10*6/uL 4.2-5.4 [facility] Work Phone: Blood hemoglobin measurement (mass/volume)on 01-31-2022 Hemoglobin (Bld) [Mass/Vol] 14.9 g/dL 12.0-15.0 [facility] Work Phone: Blood lymphocytes/100 leukoc yteson 01-31-2022 Lymphocytes/100 WBC (Bld) 29.1 % 19-41 [facility] Work Phone: Blood monocytes/100 leukocyt eson 01-31-2022 Monocytes/100 WBC (Bld) 8.2 % 0-[address] [facility] Work Phone: Blood platelet mean volumeon 01-31-2022 Platelet mean volume (Bld) [Entitic vol] 9.6 fL 6.2-12.0 [facility] Work Phone: Determination of erythrocyte mean corpuscular volume (MCV)on 01-31-2022 MCV (RBC) [Entitic vol] 88.2 fL 81-[address] [facility] Work Phone: [phone] Hematocrit Auto (Bld) [Volum e fraction]on 01-31-2022 Hematocrit (Bld) [Volume fraction] 43.3 % 37-47 [facility] Work Phone: [phone] Laboratory - Chemistry and C hemistry - challengeon 01-31-2022 ALP [Catalytic activity/Vol] 66 U/L 45-117 [facility] Work Phone: [phone] ALT [Catalytic activity/Vol] 41 U/L 13-56 [facility] Work Phone: [phone] CO2 [Moles/Vol] 29.0 mmol/L 21.0-32.0 [facility] Work Phone: [phone] Globulin (S) [Mass/Vol] 3.7 g/dL 2.2-4.[address] [facility] Work Phone: [phone] Urea nitrogen/Creatinine [Mass ratio] 11.2 mg/mg 10-20 [facility] Work Phone: [phone] Laboratory - Hematology and Cell countson 01-31-2022 Erythrocyte distribution width (RBC) [Entitic vol] 43.4 fL 35.1-43.9 [facility] Work Phone: [phone] Erythrocyte distribution width (RBC) [Ratio] 13.3 % 11.6-14.6 [facility] Work Phone: [phone] Immature granulocytes/100 WBC (Bld) 0.700 % 0.0-0.9 [facility] Work Phone: [phone] Comment on above: IG% - Immature Granu locytes (promyelocytes, myelocytes and metamyelocytes) > 1% indicates that a LEFT SHIFT is Present. MCH (RBC) [Entitic mass] 30.3 pg 27.0-32.0 [facility] Work Phone: [phone] Nucleated RBC/100 WBC (Bld) [Ratio] 0 % 0-5 [facility] Work Phone: [phone] MCHC Auto (RBC) [Mass/Vol]on 01-31-2022 MCHC (RBC) [Mass/Vol] 34.4 g/dL 32-36 [facility] Work Phone: No Panel Informationon 01-31 Estimated GFR (MDRD) Amer 86 mL/min >60 [facility] Work Phone: [phone] Comment on above: GFR Calc Estimated GFR (MDRD) Non-Af Amer 71 mL/min >60 [facility] Work Phone: Comment on above: Non- GFR Calc Thyroid Stimulating Hormone (TSH) 0.86 uIU/mL 0.358-3.74 [facility] Work Phone: [phone] Vitamin D 25-Hydroxy 49.0 ng/mL [facility] Work Phone: Comment on above: Vitamin D 25(OH) Sta tus Range Deficiency <20 ng/mL (50nmol/L) Insufficiency 20 - 30 ng/mL (50 - 75 nmol/L) Sufficiency 30 - 100 ng/mL (75 - 250 nmol/L) Toxicity >100 ng/mL (>250 nmol/L) Platelets bldon 01-31-2022 Platelets (Bld) [#/Vol] 365 10*3/uL 150-450 [facility] Work Phone: [phone] Serum or plasma albumin madyson urement (mass/volume)on 01-31-2022 Albumin [Mass/Vol] 3.8 g/dL 3.2-5.0 [facility] Work Phone: [phone] Serum or plasma albumin/glob ulin mass ratioon 01-31-2022 Albumin/Globulin [Mass ratio] 1.0 {ratio} 0.9-2.4 [facility] Work Phone: [phone] Serum or plasma calcium madyson urement (mass/volume)on 01-31-2022 Calcium [Mass/Vol] 8.8 mg/dL 8.5-10.1 [facility] Work Phone: [phone] Serum or plasma creatinine m easurement (mass/volume)on 01-31-2022 Creatinine [Mass/Vol] 0.89 mg/dL 0.55-1.02 [facility] Work Phone: Comment on above: The validity of the calculated GFR & GFRAA in patients over 70 years has not been determined. Clinical correlation is essential. Serum or plasma urea nitroge n measurement (mass/volume)on 01-31-2022 Urea nitrogen [Mass/Vol] 10 mg/dL 7-18 [facility] Work Phone: Thin prep Papanicolaou smear with manual screeningon 01-31-2022 Thin prep Papanicolaou smear with manual screening 24 U/L 15-37 [facility] Work Phone: Thin prep Papanicolaou smear with manual screening 6 5-15 [facility] Work Phone: Laboratory - Microbiology an d Antimicrobial susceptibilityon 12-28-2021 SARS-CoV-2 (COVID-19) RNA DIVINA+probe Ql (Unsp spec) Not detected Not Detect [facility] Work Phone: Comment on above: Normal Reference Ran ge: Not DetectedMethod:(RT-PCR) real-time reverse transcriptase PCRLuminex Promon Instrument*The Food and Drug Administration (FDA) has issued an Emergency Use Authorization (EAU) for the Promon SARS-CoV-2 Assay for the rapid detection of [...] 12-28 Influenza Types A,B Direct FA (LASHELL) [facility] Work Phone: ED NOTEon 05-24-2019 ED NOTE HNO ID: [id number] Author: Gin GrahamRn) TRESSA Merritt Service: Emergency [...] anything else to help you? No Normal [facility] ED NOTE HNO ID: [id number] Author: Nora Reinoso) TRESSA Hua Service: Emergency [...] gait for dc home per family. Normal [facility] ED NOTE HNO ID: [id number] Author: Nora Hua RN Service: Emergency Medicine Author Type: Registered Nurse Type: ED Notes Filed: 05/23/2019 11:56 PM Note Text: Patient informed: the name of medication, why we are giving it, possible side effects, what they may expect to feel, and was offered a chance to ask questions, prior to the administration of benadryl, pepcid, prednisone Normal [facility] ED NOTE HNO ID: [id number] Author: Nora Hua RN Service: Emergency Medicine Author Type: Registered Nurse Type: ED Notes Filed: 05/24/2019 12:10 AM Note Text: Pt to ED with c/o my feet have been itching for past 6 months, and my hands have been itching for at least 6 wk, my scalp also itches." pt denies any rash, no new exposures. Has history of similar issues. 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 H1 darshana H2 [...] MD Carolina Hagen MD 05/24/19 0004 Normal [facility] Vital Signs Date Time Vital Sign Value Performing Clinician Angeles parker 07-24-2025 11:28-0400 Diastolic blood pressure 86 mm[Hg] Clemencia Zuniganger DO Work Phone: [facility] 07-24-2025 11:28-0400 Heart rate 95 /min Clemencia Collins DO Work Phone: [facility] 07-24-2025 11:28-0400 Respiratory rate 18 /min Clemencia Guadalupe DO Work Phone: [facility] 07-24-2025 11:28-0400 SaO2% (BldA) [Mass fraction] 97 % Clemencia Collins DO Work Phone: 9(484)425-018160 [place] [address] 07-24-2025 11:28-0400 Systolic blood pressure 130 mm[Hg] Clemencia Collins DO Work Phone: 6(640)276-972293 [place] [address] 07-11-2025 11:09-0400 Body height 162.56 cm Clemencia Collins DO Work Phone: 5(324)407-153593 [place] [address] 07-11-2025 11:09-0400 Body temperature 97.9 [degF] Clemencia Collins DO Work Phone: 2(577)742-436493 [place] [address] 07-11-2025 11:09-0400 Diastolic blood pressure 98 mm[Hg] Clemencia Collins DO Work Phone: 9(924)186-333893 [place] [address] 07-11-2025 11:09-0400 Heart rate 81 /min Clemencia Collins DO Work Phone: 6(767)933-662093 [place] [address] 07-11-2025 11:09-0400 Respiratory rate 18 /min Clemencia Collins DO Work Phone: 8(138)856-130693 [place] [address] 07-11-2025 11:09-0400 SaO2% (BldA) [Mass fraction] 97 % Clemencia Collins DO Work Phone: 2(508)747-098493 [place] [address] 07-11-2025 11:09-0400 Systolic blood pressure 144 mm[Hg] Clemencia Collins DO Work Phone: 2(443)048-829193 [place] [address] 06-20-2025 10:38-0400 Body height 162.56 cm Clemencia Collins DO Work Phone: 2(417)995-949093 [place] [address] 06-20-2025 10:38-0400 Body temperature 99.3 [degF] Clemencia Collins DO Work Phone: 1(545)478-415793 [place] [address] 06-20-2025 10:38-0400 Diastolic blood pressure 85 mm[Hg] Clemencia Collins DO Work Phone: 9(044)766-891960 [place] [address] 06-20-2025 10:38-0400 Heart rate 100 /min Clemencia Collins DO Work Phone: [facility] 06-20-2025 10:38-0400 Respiratory rate 18 /min Clemencia Collins DO Work Phone: 3(512)625-727660 [place] [address] 06-20-2025 10:38-0400 SaO2% (BldA) [Mass fraction] 96 % Clemencia Collins DO Work Phone: 8(124)184-684260 [place] [address] 06-20-2025 10:38-0400 Systolic blood pressure 134 mm[Hg] Clemencia Collins DO Work Phone: 5(825)010-780360 [place] [address] 06-13-2025 10:53-0400 Body height 162.56 cm Clemencia Collins DO Work Phone: 5(674)995-117093 [place] [address] 06-13-2025 10:53-0400 Body temperature 99.3 [degF] Clemencia Collins DO Work Phone: 6(993)691-360560 [place] [address] 06-13-2025 10:53-0400 Diastolic blood pressure 93 mm[Hg] Clemencia Collins DO Work Phone: 2(141)351-278960 [place] [address] 06-13-2025 10:53-0400 Heart rate 98 /min Clemencia Collins DO Work Phone: 4(561)689-460160 [place] [address] 06-13-2025 10:53-0400 Respiratory rate 18 /min Clemencia Collins DO Work Phone: 3(669)599-042660 [place] [address] 06-13-2025 10:53-0400 SaO2% (BldA) [Mass fraction] 95 % Clemencia Collins DO Work Phone: 2(225)329-552960 [place] [address] 06-13-2025 10:53-0400 Systolic blood pressure 149 mm[Hg] Clemencia Collins DO Work Phone: [facility] 06-05-2025 11:42-0400 Diastolic blood pressure 85 mm[Hg] Clemencia Collins DO Work Phone: 7(799)930-376560 [place] [address] 06-05-2025 11:42-0400 Heart rate 110 /min Clemencia Collins DO Work Phone: 1(663)743-842060 [place] [address] 06-05-2025 11:42-0400 Respiratory rate 18 /min Clemencia Collins DO Work Phone: 1(802)357-609093 [place] [address] 06-05-2025 11:42-0400 SaO2% (BldA) [Mass fraction] 98 % Clemencia Collins DO Work Phone: 7(540)708-871693 [place] [address] 06-05-2025 11:42-0400 Systolic blood pressure 118 mm[Hg] Clemencia Collins DO Work Phone: 5(387)236-345093 [place] [address] 05-30-2025 11:28-0400 Body height 162.56 cm Clemencia Collins DO Work Phone: 7(252)075-445493 [place] [address] 05-30-2025 11:28-0400 Body temperature 98.6 [degF] Clemencia Collins DO Work Phone: 7(009)580-405493 [place] [address] 05-30-2025 11:28-0400 Diastolic blood pressure 82 mm[Hg] Clemencia Collins DO Work Phone: 0(277)096-037593 [place] [address] 05-30-2025 11:28-0400 Heart rate 100 /min Clemencia Collins DO Work Phone: 9(166)491-883093 [place] [address] 05-30-2025 11:28-0400 Respiratory rate 18 /min Clemencia Collins DO Work Phone: 7(978)074-856193 [place] [address] 05-30-2025 11:28-0400 SaO2% (BldA) [Mass fraction] 97 % Clemencia Collins DO Work Phone: 1(147)448-010493 [place] [address] 05-30-2025 11:28-0400 Systolic blood pressure 122 mm[Hg] Clemencia Collins DO Work Phone: 7(519)944-593793 [place] [address] 05-28-2025 12:40-0400 Body temperature 98.9 [degF] Clemencia Collins DO Work Phone: 9(773)860-143793 [place] [address] 05-28-2025 12:40-0400 Diastolic blood pressure 70 mm[Hg] Clemencia Collins DO Work Phone: 5(279)890-880193 [place] [address] 05-28-2025 12:40-0400 Heart rate 78 /min Clemencia Collins DO Work Phone: 7(064)501-631293 [place] [address] 05-28-2025 12:40-0400 Respiratory rate 16 /min Clemencia Collins DO Work Phone: 0(803)478-824693 [place] [address] 05-28-2025 12:40-0400 SaO2% (BldA) [Mass fraction] 98 % Clemencia Collins DO Work Phone: 7(141)510-901393 [place] [address] 05-28-2025 12:40-0400 Systolic blood pressure 155 mm[Hg] Clemencia Collins DO Work Phone: 0(106)831-400293 [place] [address] 05-28-2025 05:38-0400 Body mass index (BMI) [Ratio] 41 kg/m2 Clemencia Collins DO Work Phone: 0(966)379-633893 [place] [address] 05-28-2025 05:38-0400 Body weight 108.9 kg Clemencia Collins DO Work Phone: 7(290)811-614593 [place] [address] 05-27-2025 14:28-0400 Body height 162.56 cm Clemencia Collins DO Work Phone: 1(877)494-237293 [place] [address] 05-26-2025 22:18-0400 Body temperature 99.5 [degF] Clemencia Collins DO Work Phone: 6(942)660-258593 [place] [address] 05-26-2025 22:18-0400 Diastolic blood pressure 89 mm[Hg] Clemencia Collins DO Work Phone: 6(827)294-582093 [place] [address] 05-26-2025 22:18-0400 Heart rate 100 /min Clemencia Collins DO Work Phone: 2(880)670-785093 [place] [address] 05-26-2025 22:18-0400 Respiratory rate 16 /min Clemencia Collins DO Work Phone: 6(981)914-119293 [place] [address] 05-26-2025 22:18-0400 SaO2% (BldA) [Mass fraction] 98 % Clemencia Collins DO Work Phone: 0(454)587-723793 [place] [address] 05-26-2025 22:18-0400 Systolic blood pressure 132 mm[Hg] Cleemncia Collins DO Work Phone: 4(678)071-918293 [place] [address] 05-26-2025 20:15-0400 Body mass index (BMI) [Ratio] 40.8 kg/m2 Clemencia Collins DO Work Phone: 5(132)701-090493 [place] [address] 05-26-2025 20:15-0400 Body weight 107.9 kg Clemencia Collins DO Work Phone: 4(411)285-864393 [place] [address] 05-16-2025 10:25-0400 Diastolic blood pressure 86 mm[Hg] Clemencia Collins DO Work Phone: 1(522)382-210293 [place] [address] 05-16-2025 10:25-0400 Heart rate 110 /min Clemencia Collins DO Work Phone: 6(836)851-242793 [place] [address] 05-16-2025 10:25-0400 Respiratory rate 18 /min Clemencia Collins DO Work Phone: 6(779)407-640293 [place] [address] 05-16-2025 10:25-0400 SaO2% (BldA) [Mass fraction] 97 % Clemencia Collins DO Work Phone: 8(145)508-859193 [place] [address] 05-16-2025 10:25-0400 Systolic blood pressure 131 mm[Hg] Clemencia Collins DO Work Phone: 9(359)646-840293 [place] [address] 05-12-2025 15:59-0400 Body height 162.56 cm Clemencia Collins DO Work Phone: 1(354)352-357593 [place] [address] 05-12-2025 15:59-0400 Body temperature 98.8 [degF] Clemencia Collins DO Work Phone: 5(528)190-192593 [place] [address] 05-12-2025 15:59-0400 Diastolic blood pressure 84 mm[Hg] Clemencia Collins DO Work Phone: 2(414)555-782793 [place] [address] 05-12-2025 15:59-0400 Heart rate 98 /min Clemencia Collins DO Work Phone: 5(952)834-343193 [place] [address] 05-12-2025 15:59-0400 Respiratory rate 18 /min Clemencia Collins DO Work Phone: 8(677)211-037360 [place] [address] 05-12-2025 15:59-0400 SaO2% (BldA) [Mass fraction] 97 % Clemencia Collins DO Work Phone: 9(705)577-096560 [place] [address] 05-12-2025 15:59-0400 Systolic blood pressure 156 mm[Hg] Clemencia Collins DO Work Phone: 9(473)601-164393 [place] [address] 05-08-2025 11:00-0400 Body temperature 97.9 [degF] Clemencia Collins DO Work Phone: 2(097)934-547293 [place] [address] 05-08-2025 11:00-0400 Diastolic blood pressure 80 mm[Hg] Clemencia Collins DO Work Phone: 2(647)689-595593 [place] [address] 05-08-2025 11:00-0400 Systolic blood pressure 139 mm[Hg] Clemencia Collins DO Work Phone: 5(736)420-309293 [place] [address] 05-08-2025 09:05-0400 Body temperature 98.2 [degF] Clemencia Collins DO Work Phone: 2(997)168-293893 [place] [address] 05-08-2025 09:05-0400 Diastolic blood pressure 84 mm[Hg] Clemencia Collins DO Work Phone: 0(030)747-245993 [place] [address] 05-08-2025 09:05-0400 Heart rate 104 /min Clemencia Collins DO Work Phone: 4(097)506-362093 [place] [address] 05-08-2025 09:05-0400 Respiratory rate 16 /min Clemencia Collins DO Work Phone: 5(490)122-731593 [address] [place] [place] [address] 05-08-2025 09:05-0400 SaO2% (BldA) [Mass fraction] 93 % Clemencia Collins DO Work Phone: 5(583)711-847393 [place] [address] 05-08-2025 09:05-0400 Systolic blood pressure 128 mm[Hg] Clemencia Collins DO Work Phone: 1(414)869-491493 [place] [address] 05-07-2025 15:10-0400 Body height 162.56 cm Clemencia Collins DO Work Phone: 7(520)392-380893 [place] [address] 05-07-2025 15:10-0400 Body mass index (BMI) [Ratio] 40.8 kg/m2 Clemencia Collins DO Work Phone: 7(373)873-121193 [place] [address] 05-07-2025 15:10-0400 Body weight 108 kg Clemencia Collins DO Work Phone: 3(788)332-557093 [place] [address] 05-07-2025 15:10-0400 Inhaled oxygen flow rate 2 L/min Clemencia Collins DO Work Phone: 7(551)162-633193 [place] [address] 02-27-2025 14:47-0400 Diastolic blood pressure 78 mm[Hg] Clemencia Collins DO Work Phone: 2(639)860-647593 [place] [address] 02-27-2025 14:47-0400 Heart rate 93 /min Clemencia Collins DO Work Phone: 2(178)039-827893 [place] [address] 02-27-2025 14:47-0400 Respiratory rate 18 /min Clemencia Collins DO Work Phone: 8(322)109-618593 [place] [address] 02-27-2025 14:47-0400 SaO2% (BldA) [Mass fraction] 97 % Clemencia Collins DO Work Phone: 1(775)051-605393 [place] [address] 02-27-2025 14:47-0400 Systolic blood pressure 117 mm[Hg] Clemencia Collins DO Work Phone: 3(805)835-727693 [place] [address] 12-26-2024 14:10-0500 Body height 162.56 cm Clemencia Collins DO Work Phone: 7(735)993-435393 [place] [address] 12-26-2024 14:10-0500 Body mass index (BMI) [Ratio] 41.8 kg/m2 Clemencia Collins DO Work Phone: 1(247)939-609293 [place] [address] 12-26-2024 14:10-0500 Body temperature 98.3 [degF] Clemencia Collins DO Work Phone: 0(638)[phone] [place] [address] 12-26-2024 14:10-0500 Body weight 110.39 kg Clemencia Collins DO Work Phone: [facility] 12-26-2024 14:10-0500 Diastolic blood pressure 81 mm[Hg] Clemencia Collins DO Work Phone: [facility] 12-26-2024 14:10-0500 Heart rate 93 /min Clemencia Collins DO Work Phone: [facility] 12-26-2024 14:10-0500 Respiratory rate 18 /min Clemencia Collins DO Work Phone: [facility] 12-26-2024 14:10-0500 SaO2% (BldA) [Mass fraction] 96 % Clemencia Collins DO Work Phone: [facility] 12-26-2024 14:10-0500 Systolic blood pressure 123 mm[Hg] Clemencia Collins DO Work Phone: [facility] 01-18-2023 15:50-0400 Body height 162.[address] Bharathi Preston Work Phone: [facility] 01-18-2023 15:50-0400 Body mass index (BMI) [Ratio] 42.6 kg/m2 Dr. Bharathi Preston Work Phone: [facility] 01-18-2023 15:50-0400 Body weight 112.[address] Bharathi Preston Work Phone: [facility] 01-18-2023 15:50-0400 Diastolic blood pressure 83 mm[Hg] Dr. Bharathi Preston Work Phone: [facility] 01-18-2023 15:50-0400 Systolic blood pressure 117 mm[Hg] Dr. Bharathi Preston Work Phone: [facility] 01-06-2022 08:41-0500 Body height 162.[address] Bharathi Preston Work Phone: [facility] Work Phone: 01-06-2022 08:41-0500 Body mass index (BMI) [Ratio] 42 kg/m2 Dr. Bharathi Preston Work Phone: [facility] Work Phone: 01-06-2022 08:41-0500 Body weight 111.[address] Bharathi Preston Work Phone: [facility] Work Phone: Encounters Encounter Date Encounter Type Care Provider Facility Start: 08-18-2025 ambulatory Clemencia Collins Facility :[facility] Start: 08-14-2025 End: 08-14-2025 ambulatory Clemencia Collins Facility:[facility] Start: 07-24-2025 End: 07-24-2025 Patient encounter procedure Mindy WALDROP -[facility] Work Phone: Start: 07-24-2025 End: 07-24-2025 ambulatory Clemencia Collins DO Work Phone: -[facility] Start: 07-11-2025 End: 07-11-[address] Yannick Bourne MD -[facility] Work Phone: Start: 07-11-2025 End: 07-11-2025 ambulatory Clemencia Collins DO Work Phone: -[facility] Start: 06-23-2025 End: 06-23-2025 ambulatory Clemencia Collins DO Work Phone: -Laboratory Specimen Start: 06-23-2025 End: 06-23-[address] Ramón Pickering MD -Laboratory Specimen Work Phone: Start: 06-23-2025 End: 06-23-2025 ambulatory Clemencia Collins Facility:[facility] Start: 06-20-2025 End: 06-20-[address] Yannick Bourne MD -[facility] Work Phone: Start: 06-20-2025 End: 06-20-2025 ambulatory Clemencia Collins DO Work Phone: -[facility] Start: 06-18-2025 Encounter for other preprocedural examination Yannick Siska [facility] Start: 06-13-2025 End: 06-13-2025 ambulatory Clemencia Collins DO Work Phone: -Laboratory Specimen Start: 06-13-2025 End: 06-13-[address] Yannick Bourne MD -Laboratory Specimen Work Phone: Start: 06-13-2025 End: 06-13-[address] Yannick Bourne MD -[facility] Work Phone: Start: 06-13-2025 End: 06-13-2025 ambulatory Clemencia Collins DO Work Phone: -[facility] Start: 06-12-2025 End: 06-13-2025 ambulatory Yannick Bourne Facility:[facility] Start: 06-05-2025 End: 06-05-[address] Yannick Bourne MD -[facility] Work Phone: Start: 06-05-2025 End: 06-05-2025 ambulatory Clemencia Collins DO Work Phone: -[facility] Start: 05-30-2025 End: 05-30-[address] Yannick Bourne MD -[facility] Work Phone: Start: 05-30-2025 End: 05-30-2025 ambulatory Clemencia Collins DO Work Phone: -[facility] Start: 05-28-2025 Non-patient / Non-visit Dr. Yannick cisneros MD -[facility] Start: 05-27-2025 Non-patient / Non-visit Dr. Yannick cisneros MD -[facility] Start: 05-26-2025 ambulatory Clemencia Collins Facility :[facility] Start: 05-26-2025 End: 05-28-2025 Evaluation and management of inpatient Dr. Yannick Bourne MD -[facility] 3 Work Phone: Start: 05-26-2025 ambulatory Clemencia Collins Facility :[facility] Start: 05-26-2025 Non-patient / Non-visit Dr. Yannick cisneros MD -[facility] Start: 05-23-2025 End: 05-23-[address] Yannick Bourne MD -[facility] Work Phone: Start: 05-23-2025 End: 05-23-2025 ambulatory Clemencia Collins DO Work Phone: -[facility] Start: 05-16-2025 End: 05-16-[address] Yannick Bourne MD -[facility] Work Phone: Start: 05-16-2025 End: 05-16-2025 ambulatory Clemencia Collins DO Work Phone: -[facility] Start: 05-12-2025 End: 05-12-[address] Yannick Bourne MD -[facility] Work Phone: Start: 05-12-2025 End: 05-12-2025 ambulatory Clemencia Collins DO Work Phone: -[facility] Start: 05-08-2025 Non-patient / Non-visit Dr. Yannick cisneros MD -[facility] Start: 05-07-2025 End: 05-08-2025 Evaluation and management of inpatient Dr. Yannick Bourne MD -[facility] 3 Work Phone: Start: 05-07-2025 End: 05-08-2025 observation encounter Clemencia Collins DO Work Phone: -[facility] Surgical 3 Start: 05-07-2025 End: 05-08-2025 ambulatory Yannick Bourne Facility:[facility] Start: 05-07-2025 Non-patient / Non-visit Dr. Yannick cisneros MD -[facility] Start: 04-01-2025 End: 04-01-2025 ambulatory Clemencia Collins Facility:[facility] Start: 04-01-2025 End: 04-01-2025 Non-patient / Non-visit Dr. Florentin Rayo MD -[facility] Work Phone: Start: 02-27-2025 End: 02-27-[address] Yannick Bourne MD -[facility] Work Phone: Start: 02-27-2025 End: 02-27-2025 ambulatory Yannick Tayla Facility:[facility] Start: 01-13-2025 End: 01-13-2025 ambulatory Clemencia Guadalupe DO Work Phone: [facility] Work Phone: Start: 01-13-2025 End: 01-13-2025 Patient encounter procedure Santa Burk ASSOCIATE DIRECTOR OF NURSING-C -Outpatient Breast Imaging Work Phone: Start: 01-13-2025 End: 01-13-2025 ambulatory Santa Burk ASSOCIATE DIRECTOR OF NURSING Facility:[facility] Start: 12-26-2024 End: 12-26-[address] Yannick Bourne MD -[facility] Work Phone: Start: 12-26-2024 End: 12-26-2024 ambulatory Yannick Tayla Facility:[facility] Start: 08-20-2024 ambulatory Shannon Reynoso lity:[facility] Start: 05-20-2024 End: 05-20-2024 Emergency department patient visit BHARATHI PRESTON Facility:[facility] Start: 03-02-2023 End: 03-02-[address] Bharathi Preston Work Phone: [facility] Work Phone: Start: 03-02-2023 End: 03-02-[address] Bharathi Preston Work Phone: [facility] Start: 02-15-2023 End: 02-15-[address] Bharathi Preston Work Phone: [facility] Work Phone: Start: 02-15-2023 End: 02-15-[address] Bharathi Preston Work Phone: [facility] Start: 02-02-2023 End: 02-02-[address] Bharathi Preston Work Phone: [facility] Work Phone: Start: 02-02-2023 End: 02-02-[address] [facility] Start: 01-18-2023 End: 01-18-[address] Bharathi Preston Work Phone: [facility] Work Phone: Start: 01-18-2023 End: 01-18-[address] [facility]har[facility] Start: 01-18-2023 End: 01-18-[address] Bharathi Preston Work Phone: [facility] Start: 08-01-2022 End: 08-01-2022 ambulatory [facility] Work Phone: Start: 08-01-2022 End: 08-01-2022 Patient encounter procedure [facility] Start: 01-31-2022 End: 01-31-[address] [facility]harathi Preston [facility] Start: 01-06-2022 End: 01-06-[address] Bharathi Preston Work Phone: [facility] Start: 12-28-2021 End: 12-28-[address] Bharathi Preston Work Phone: [facility]-Pulmonary Services/Neurology Procedures Date Procedure Procedure Detail [...] Start: 12-28-2021 Influenza Types A,B Direct FA ([facility]) Dr. Bharathi Preston Work Phone: Start: [...] Fast Bacilli Culture Acid Fast Bacilli Culture [facility] Start: 06-23-2025 Acid Fast Bacilli Smear Acid Fast Bacilli Smear [facility] Start: 06-23-2025 Fungal Culture Fungal Culture [facility] Start: 06-23-2025 Acid fast bacilli culture [facility] Start: 05-29-2025 Serum prealbumin level [facility] Start: 05-28-2025 Patient discharge [facility] Start: 05-27-2025 [facility] Start: 05-27-2025 [facility] Start: 05-27-[address] [facility] Start: 05-26-2025 Following clinical pathway protocol [facility] Start: 05-26-2025 Application of intermittent pneumatic compression device [facility] Start: 05-26-2025 Wound care [facility] Start: 05-26-2025 Admission procedure [facility] Start: 05-26-2025 Ambulation without limitation [facility] Start: 05-26-2025 Assessment of risk of venous thromboembolism [facility] Start: 05-26-2025 Continuous pulse oximetry [facility] Start: 05-26-2025 Insertion of catheter into peripheral vein [facility] Start: 05-26-2025 Measuring intake and output [facility] Start: 05-26-2025 Medication education [facility] Start: 05-26-2025 Providing care according to standard [facility] Start: 05-26-2025 Verification routine [facility] Start: 05-26-2025 Vital signs measurements [facility] Start: 05-26-2025 [facility] Start: 05-26-2025 Hospital admission, emergency, from emergency room, medical nature [facility] Start: 05-26-2025 End: 05-27-2025 [facility] Start: 05-26-2025 Bacteria identified in Blood by Culture Blood Culture [facility] Start: 05-26-2025 Blood culture Blood Culture [facility] Start: 05-26-2025 Patient referral to dietitian [facility] Start: 05-08-2025 Patient discharge [facility] Start: 05-07-2025 Application of intermittent pneumatic compression device [facility] Start: 05-07-2025 End: 05-07-2025 [facility] Start: 05-07-2025 Incentive spirometry [facility] Start: 05-07-2025 Following clinical pathway protocol [facility] Start: 05-07-2025 Anesthesia reconstruction breast ANESTH SURGERY OF BREAST [facility] Start: 05-07-2025 Reduction mammaplasty BREAST REDUCTION [facility] Start: 05-07-2025 Reduction mammoplasty BREAST REDUCTION [facility] Start: 05-07-2025 Admission procedure [facility] Start: 05-07-2025 End: 05-07-2025 Ambulation without limitation [facility] Start: 05-07-2025 Assessment of risk of venous thromboembolism [facility] Start: 05-07-2025 Catheterization of vein [facility] Start: 05-07-2025 Measuring intake and output [facility] Start: 05-07-2025 End: 05-07-2025 Medication education [facility] Start: 05-07-2025 Vital signs measurements [facility] Start: 05-07-2025 Maintenance of drainage tube [facility] Start: 05-07-2025 [facility] Start: 01-18-2023 Liquid based cervical cytology screening [facility] Acid fast bacilli culture [facility] Follitropin and Lutr opin panel [Units/volume] - Serum or Plasma [facility] Fungus identified in Unspecified specimen by Culture [facility] Lipid 1996 panel - S andrew or Plasma [facility] MG Breast - bilatera l Screening [facility] Mycobacterium sp charity ntified in Unspecified specimen by Organism specific culture [facility] Path report.final Dx Spec [facility] T4 free measurement [facility] Thyroid stimulating hormone measurement [facility] Vitamin D, 25-hydrox y measurement [facility] Payers Date Payer Category Payer Self-pay [id number] 2004 Unknown [id number] Unknown [id number] 2.16.8 40.1.892256.3.579.2.462 Unknown [id number] 2.16.8 40.1.220070.3.579.2.462 Unknown [id number] 2.16.8 40.1.176677.3.579.2.462 Unknown [id number] 2.16.8 40.1.764434.3.579.2.462 Unknown [id number] 2.16.8 40.1.218948.3.579.2.462 Unknown [id number] 2.16.8 40.1.620390.3.579.2.462 Unknown [id number] 2.16.8 40.1.820013.3.579.2.462 Unknown [id number] 2.16.8 40.1.559848.3.579.2.462 Unknown [id number] 2.16.8 40.1.126757.3.579.2.462 Unknown [id number] 2.16.8 40.1.328791.3.579.2.462 Unknown [id number] 2.16.8 40.1.836080.3.579.2.462 Unknown [id number] 2.16.8 40.1.366556.3.579.2.462 Unknown [id number] 2.16.8 40.1.061930.3.579.2.462 Unknown [id number] 2.16.8 40.1.609874.3.579.2.462 Unknown [id number] 2.16.8 40.1.951999.3.579.2.462 Unknown [id number] 2.16.8 40.1.466075.3.579.2.462 Unknown [id number] 2.16.8 40.1.298832.3.579.2.462 Unknown [id number] 2.16.8 40.1.635394.3.579.2.462 Unknown [id number] 2.16.8 40.1.173559.3.579.2.462 Unknown [id number] 2.16.8 40.1.974786.3.579.2.462 Unknown [id number] 2.16.8 40.1.750701.3.579.2.462 Unknown [id number] 2.16.8 40.1.405667.3.579.2.462 Unknown [id number] 2.16.8 40.1.920865.3.579.2.462 Unknown [id number] 2.16.8 40.1.876468.3.579.2.462 Unknown [id number] 2.16.8 40.1.332008.3.579.2.462 Unknown [id number] 2.16.8 40.1.104827.3.579.2.462 Social History Date Type Detail Facility Start: 01-06-2022 End: 01-18-2023 Tobacco smoking status NHIS Unknown if ever smoked [facility] Start: 1970 Sex Assigned At Female [facility] Start: 12-26-2024 End: 05-26-2025 Tobacco smoking status NHIS Never smoked tobacco (finding) [facility] Start: 01-21-2025 Sex Female (finding) [facility] Not [facility] NEGATED: Highlighted row Not [facility] Goals Date Patient Goal Desired Activity /State Functional Status Date Assessment Result Facility 05-28-2025 Functional status Ambulates [facility] Work Phone: 05-08-2025 Functional status Ambulates;Bedrest [facility] Work Phone: Mental Status Date Assessment Result Facility 05-28-2025 Cognitive function Voice/Name [facility] Work Phone: 05-26-2025 Cognitive function Level Of Cons ciousness Awake;Alert;Appropriate;Follow s Commands [facility] Work Phone: 05-08-2025 Cognitive function Voice/Name [facility] Work Phone: Clinical Notes 01-18-2023 to 07-24-2025 Note Date & Type Note Facility 07-24-2025 Progress note [facility] 06-20-2025 Progress note [facility] 06-20-2025 Progress note Note Date/Time June 20, 2025 11:04am [facility] [address], [address] [place] [address] OFFICE VISIT Date of Service: 06/20/25 MR#: [id number] Acct: [id number] Name: PATRIA JOHNSON Rep #: [id number] : 1970 Provider: Dr. Lei Bourne MD Age/Sex: 54/F Location: [facility] Status: Signed Intake Vital Signs 3 06/13/25 [...] skin resection and axillary/lateral chest liposuction (CPT: 29999 x 2 with 50 modifier) 20 June 2025: Patient here for follow up for wound care. Biopsies were nonspecific for pyoderma. Patient has been doing wet-to-dry dressings twice daily. 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 Underlying granulation tissue forming and wound filling in Coding Level of Care Code Global Post Op Diagnoses Status post breast reduction Z98.890 [facility] Medical History Depression Anxiety Diabetes Arthritis Anemia [...] with Dr. Ramón Pickering who is a chief technician. He is happy to see her for [...] the pyoderma. [facility] 2 [facility] with [facility] 06/20/25 [id number] <Electronically signed by Yannick Bourne MD> Date _ Yannick Bourne MD Cosigner Signature: Date (if applicable) CC: ~ [facility] Work Phone: 1(467) 482-559407-30-2025 Discharge summary Author Yannick Bourne [facility] Note Date/Time May 28, 2025 10:5 3am [facility] Medical Records Department [address] [place] [address] Discharge Summary 05/28/25 1049 MR#: [id number] Acct: [id number] Name: PATRIA JOHNSON Rep #:[id number] : 1970 54 From: Yannick Bourne MD PCP: Clemencia Guadalupe DO Status:ADM IN Location: [facility] [id number] Providers Date of Admission: 05/26/25 Primary Care Physician: JERSON CarsonDO Consultations 05/27/25 02:05 Consult: Onc/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 Breast: Soft and no signs of [...] Yannick Bourne MD; Clemencia Guadalupe DO~ Signed [facility] Work Phone: 1(352) 805-395607-30-2025 Consult note [facility] Medical Records Department [address] [place] [address] Counseling Note - Pharmacy 05/28/25 1219 MR#: [id number] Acct: [id number] Name: PATRIA JOHNSON Rep #:[id number] : 1970 54 From: Jossy Acevedo PCP: Clemencia Guadalupe DO Status:ADM IN Y Location: [facility] [id number] Pharmacy [facility] Counseling Pharmacy Service has performed [...] Signature (if applicable): Date CC: ~ Signed [facility]07-30-2025 Discharge summary [facility] Medical Records Department [address] [place] [address] Discharge Summary 05/28/25 1049 MR#: [id number] Acct: [id number] Name: PATRIA JOHNSON Rep #:[id number] : 1970 54 From: Yannick Bourne MD PCP: Clemencia Guadalupe DO Status:ADM IN Location: [facility] [id number] Providers Date of Admission: 05/26/25 Primary Care Physician: JERSON CarsonDO Consultations 05/27/25 02:05 Consult: Onc/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 Breast: Soft and no signs of [...] Yannick Bourne MD; Clemencia Guadalupe DO~ Signed [facility]07-30-2025 [facility] Medical Records Department [address] [place] [address] Discharge Summary 05/28/25 1049 MR#: [id number] Acct: [id number] Name: PATRIA JOHNSON Rep #: [id number] : 1970 54 From: Yannick Bourne MD PCP: Clemencia Guadalupe DO Status:ADM IN Location: [facility] [id number] Providers Date of Admission: 05/26/25 [facility] 05/27/25 02:05 Consult: Onc/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 Breast: Soft and no signs of [...] Yannick Bourne Primary Care Provider: Clemencia Guadalupe [facility] Discharge Orders/Prescriptions Prescriptions: New doxycycline hyclate 100 mg capsule 100 mg PO BID 7 Days Qty: 14 0RF ciprofloxacin HCl 500 mg tablet 500 mg PO Q12H 7 Days Qty: 14 0RF No Action lisinopril 5 mg tablet 5 mg PO QDAY potassium chloride [Klor-Con 10] 10 mEq tablet extended release 10 meq PO QDAY fluoxetine [Prozac] 40 mg ca (more content not included)...[facility]07-29-2025 Progress note Author Yannick Bourne [facility] Note Date/Time May 27, 2025 10:1 9am [facility] Medical Records Department [address] 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 Breast: Soft and [...] patient another night Charges/Coding Procedures Integumentary 111xxx-113xx: [id number] Global Visit 05/27/25 1019 <Electronically signed by Yannick Bourne MD> Cosigner Signature (if applicable): CC: ~ Signed [facility] Work Phone: 1(737) 799-135307-29-2025 Progress note [facility] Medical Records Department [address] [place] [address] Progress Note - Surgery 05/27/25 1012 MR#: [id number] Acct: [id number] Name: PATRIA JOHNSON Rep #:[id number] : 1970 54 From: Yannick Bourne MD PCP: Clemencia Guadalupe DO Status:ADM IN Location: [facility] OH190-7 Subjective Subjective Patient doing well this morning [...] % (Auto) 50.4, Lymph % (Auto) 34.1, Oliver % (Auto) 8.9, Eos % (Auto) 5.3 [...] lbumin/Globulin Ratio 1.5 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 Breast: Soft and [...] patient another night Charges/Coding Procedures Integumentary 111xxx-113xx: 77275 Global Visit 05/27/25 1019 Cosigner Signature (if applicable): CC: ~ Signed [facility]07-29-2025 Discharge summary Author Chris Le [facility] Note Date/Time May 27, 2025 12:1 8am [facility] Medical Records Department [address] [place] [address] Emergency Department Summary 05/26/25 MR#: [id number] Acct: [id number] Name: PATRIA JOHNSON Rep #:[id number] : 1970 54 From: Chris Montano PCP: Clemencia Guadalupe DO Status:ADM IN Location: [facility] SE074-5 HPI History of Present Illness Chief Complaint: [...] Plastic surgery This note was generated with KTM Advance dictation software. It may contain incorrectwords, spelling, [...] % (Auto) 50.4 Lymph % (Auto) 34.1 Oliver % (Auto) 8.9 Eos % (Auto) 5.3 [...] breast reduction, Postoperative wound cellulitis Disposition Disposition: [facility] Discharge Date/Time: 05/26/25 23:20 What to do if you have Problems For any increased pain, shortness of breath, bleeding, nausea or vomiting, chestpain, or any unexpected problems, contact your Primary Care Provider. Call [facility] ([phone]) or report to the closest Emergency Room. Call 911 if necessary. 05/27/25 0018 <Electronically signed by Chris Montano> Cosigner Signature (if applicable): CC: Clemencia Guadalupe DO ~ Signed [facility] Work Phone: 1([phone]) 690-894107-29-2025 Discharge summary [facility] Medical Records Department [address] [place] [address] Emergency Department Summary 05/26/25 MR#: [id number] Acct: [id number] Name: PATRIA JOHNSON Rep #:[id number] : 1970 54 From: Chris Montano PCP: Clemencia Guadalupe DO Status:ADM IN Location: [place] [address]-1 HPI History of Present Illness Chief Complaint: [...] Plastic surgery This note was generated with SevenLunchesation software. It may contain incorrectwords, spelling, and [...] % (Auto) 50.4 Lymph % (Auto) 34.1 Oliver % (Auto) 8.9 Eos % (Auto) 5.3 [...] wound cellulitis Disposition Disposition: Acute Care Hospital [facility] Discharge Date/Time: 05/26/25 23:20 What to do if you have Problems For any increased pain, shortness of breath, bleeding, nausea or vomiting, chestpain, or any unexpected problems, contact your Primary Care Provider. Call [facility] ([phone]) or report tothe closest Emergency Room. Call 911 if necessary. 05/27/25 0018 Cosigner Signature (if applicable): CC: Clemencia Guadalupe DO ~ Signed [facility]07-28-2025 Consult note Author Yannick Bourne [facility] Note Date/Time May 26, 2025 9:54 pm [facility] Medical Records Department [address] [place] [address] Consultation - Surgical 05/26/252043 MR#: [id number] Acct: [id number] Name: PATRIA JOHNSON Rep #:[id number] : [...] OF BLOOD CLOTS 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 Breast: Soft and [...] 20:51 05/26/25 20:51 Charges/Coding Procedures Integumentary 111xxx-113xx: 42350 Global Visit 05/26/252153 <Electronically signed by Yannick Bourne MD> Cosigner Signature (if applicable): CC: Clemencia Guadalupe DO~ Signed [facility] Work Phone: 1(284) 871-767907-28-2025 Consult note Author Yannick Bourne [facility] Note Date/Time May 26, 2025 9:54 pm [facility] Medical Records Department [address] [place] [address] Consultation - Surgical 05/26/252043 MR#: [id number] Acct: [id number] Name: PATRIA JOHNSON Rep #:[id number] : [...] OF BLOOD CLOTS 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 Breast: Soft and [...] 20:51 05/26/25 20:51 Charges/Coding Procedures Integumentary 111xxx-113xx: 37103 Global Visit 05/26/252153 <Electronically signed by Yannick Bourne MD> Cosigner Signature (if applicable): CC: Clemencia Guadalupe DO~ Signed [facility] Work Phone: 1([phone]) [phone] Consult note [facility] Medical Records Department [address] [place] [address] Consultation - Surgical 05/26/252043 MR#: [id number] Acct: [id number] Name: PATRIA JOHNSON Rep #:[id number] : [...] OF BLOOD CLOTS 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 Breast: Soft and [...] 20:51 05/26/25 20:51 Charges/Coding Procedures Integumentary 111xxx-113xx: 39148 Global Visit 05/26/254 Cosigner Signature (if applicable): CC: Clemencia Guadalupe, DO~ Signed [facility]07-10-2025 Discharge summary Author Yannick Bourne [facility] Note Date/Time May 08, 2025 7:12 am [facility] Medical Records Department [address] [place] [address] Discharge Summary 05/08/25 0710 MR#: [id number] Acct: [id number] Name: GLORIAPATRIA RIGOBERTO Rep #:[id number] : 1970 54 From: Yannick Bourne MD PCP: Clemencia Guadalupe DO Status:ADM GALILEA Location: [place] [address] Providers Date of Admission: 05/07/25 [facility] For [facility]: Breast reduction with possible [...] morning before discharge. 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 Please keep daily amounts of drainage separate [...] document)? At your earliest convenience, please call [phone] to confirm/schedule a follow-up appointment with me [...] or if you have any questions, call [phone] Discharge Orders/Prescriptions Prescriptions: New oxycodone 5 mg [...] Yannick Bourne MD; Clemencia Guadalupe DO~ Signed [facility] Work Phone: 1([phone]) [phone] Discharge summary [facility] Medical Records Department [address] [place] [address] Discharge Summary 05/08/25709 MR#: [id number] Acct: [id number] Name: PATRIA JOHNSON Rep #:[id number] : 1970 54 From: Yannick Bourne MD PCP: Clemencia Guadalupe DO Status:ADM GALILEA Location: [place] [address] Providers Date of Admission: 05/07/25 Primary Care [...] morning before discharge. 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 Please keep daily amounts of drainage separate for each drain for i09-seam period (for example drain #1 put out [...] document)? At your earliest convenience, please call [phone] to confirm/schedule a follow-up appointment with me [...] or if you have any questions, call [phone] Discharge Orders/Prescriptions Prescriptions: New oxycodone 5 mg [...] dyspepsia) Referrals / Follow Up[facility] - Disposition Disposition (needs filled in before D/C Order can be placed): Home, Self Care 05/08/25 0712 Cosigner Signature (if applicable): CC: Dr. Yannick Bourne MD; Clemencia Guadalupe DO~ Signed [facility]07-10-2025 [facility] Medical Records Department [address] [place] [address] Discharge Summary 05/08/25709 MR#: [id number] Acct: [id number] Name: PATRIA JOHNSON Rep #: [id number] : 1970 54 From: Yannick Bourne MD PCP: Clemencia Guadalupe DO Status:ADM GALILEA Location: [place] [address] Providers Date of Admission: 05/07/25 [facility] Care [facility] Reason For Visit: Breast reduction with possible [...] morning before discharge. 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 1500 on incentive [...] last 24 hr 05/07/25 (more content not included)...[facility]07-09-2025 Consult note Author Desean Bateman [facility] Note Date/Time May 07, 2025 1:45p m [facility] Medical Records Department [address] [place] [address] Anesthesia Postop Eval II 05/07/25 1344 MR#: [id number] Acct: [id number] Name: PATRIA JOHNSON Rep #:[id number] : 1970 54 From: Desean Ronquillo PCP: Clemencia Guadalupe DO Status:ADM GALILEA Y Race: C Location: [place] [address] Anesthesia Postop Eval I Sum Postop Eval Completion status Anesthesia document: Postop Eval 1 completed: Yes Anesthesia Postop Eval I Summary Anesthesia Postop Eval I Summary: Anesthesia Postop Eval I: Assessment Summary Airway patent Yes 05/07/25 12:58 NECKTIES PAINTER.GDOTT Spontaneous unlabored Yes 05/07/25 12:58 NECKTIES PAINTER.GDOTT respirations Mental status Awake,Calm 05/07/25 12:58 NECKTIES PAINTER.GDOTT nausea No 05/07/25 12:58 NECKTIES PAINTER.GDOTT Vomiting No 05/07/25 12:58 NECKTIES PAINTER.GDOTT Anesthesia Postop Eval I: Fluid Summary Crystalloid volume administer 2,100 05/07/25 12:58 NECKTIES PAINTER.GDOTT (ml) Colloids volume administered ( ml) Blood Product volume administered (ml) Total IV fluid infused 2,100 05/07/25 12:58 NECKTIES PAINTER.GDOTT Anesthesia Postop Eval I: Summary Notes Anesthesia Complication No 05/07/25 12:58 NECKTIES PAINTER.GDOTT Anesthesia Complication Comment: Post-operative progress note Anesthesia: Postop Eval II Evaluation Mental status: Awake and Calm Pain Level: 1 nausea: No Vomiting: No Complications Anesthesia Complication: No 05/07/25 1345 <Electronically signed by Desean Bateman MD> Date _ Desean Pena Signature: Date CC: ~ Signed [facility] Work Phone: 1(576) 889-834607-09-2025 Consult note Author Iris Berg [facility] Note Date/Time May 07, 2025 12:58 pm [facility] Medical Records Department [address] [place] [address] Anesthesia Postop Eval I 05/07/25 1257 MR#: [id number] Acct: [id number] Name: PATRIA JOHNSON Rep #:[id number] : 1970 54 From: Iris HALLMAN PCP: Clemencia Guadalupe DO Status:REG SDC Y Race: C Location: [place] [address] Anesthesia: Postop Eval I Current Vital Signs [...] Iris Pena Signature: Date CC: ~ Signed [facility] Work Phone: 1(453) 418-908207-09-2025 Procedure note [facility] Medical Records Department [address] [place] [address] Operative Report 05/07/25 1443 MR#: [id number] Acct: [id number] Name: PATRIA JOHNSON Rep #:[id number] : 1970 54 From: Yannick Bourne MD PCP: Clemencia Guadalupe DO Status:ADM GALILEA Location: [place] [address] Operative Report (Standard) Operative Information Date of Procedure: 05/07/25 Pre-Operative Diagnosis: Macromastia Post-Operative Diagnosis: Same Surgery/Procedure Performed: 1) Breast reduction (bilateral), inferior pedicle with alan pattern skin resection and axillary/lateral chest liposuction (CPT: 99770 x 2 with 50 modifier) pediatric intensive physician: Yes Recorder Of Deeds: martínez Tasks completed by clinical nursing assistant: Closing and Retracting Type of Anesthesia: General/Supplemental [...] copious amounts normal saline and Irrisept. 19 Urdu Fabian drains were tunneled out laterally. Hemostasis [...] Documentation VTE Mechan Device Prophylaxis: SCD's 05/07/25 7848 Cosigner Signature (if applicable): CC: Dr. Yannick Bourne MD; Clemencia Guadalupe DO~ Signed [facility]07-09-2025 Consult note [facility] Medical Records Department [address] [place] [address] Anesthesia Postop Eval II 05/07/25 1344 MR#: [id number] Acct: [id number] Name: PATRIA JOHNSON Rep #:[id number] : 1970 54 From: Desean Ronquillo PCP: Clemencia Guadalupe DO Status:ADM GALILEA Y Race: C Location: [place] [address] Anesthesia Postop Eval I Sum Postop Eval Completion status Anesthesia document: Postop Eval 1 completed: Yes Anesthesia Postop Eval I Summary Anesthesia Postop Eval I Summary: Anesthesia Postop Eval I: Assessment Summary Airway patent Yes 05/07/25 12:58 NECKTIES PAINTER.GDOTT Spontaneous unlabored Yes 05/07/25 12:58 NECKTIES PAINTER.GDOTT respirations Mental status Awake,Calm 05/07/25 12:58 NECKTIES PAINTER.GDOTT nausea No 05/07/25 12:58 NECKTIES PAINTER.GDOTT Vomiting No 05/07/25 12:58 NECKTIES PAINTER.GDOTT Anesthesia Postop Eval I: Fluid Summary Crystalloid volume administer 2,100 05/07/25 12:58 NECKTIES PAINTER.GDOTT (ml) Colloids volume administered ( ml) Blood Product volume administered (ml) Total IV fluid infused 2,100 05/07/25 12:58 NECKTIES PAINTER.GDOTT Anesthesia Postop Eval I: Summary Notes Anesthesia Complication No 05/07/25 12:58 NECKTIES PAINTER.GDOTT Anesthesia Complication Comment: Post-operative progress note Anesthesia: Postop Eval II Evaluation Mental status: Awake and Calm Pain Level: 1 nausea: No Vomiting: No Complications Anesthesia Complication: No 05/07/25 1345 MD> Date _ Desean Bateman MD Cosigner Signature: CC: ~ Signed [facility]07-09-2025 Consult note [facility] Medical Records Department [address] [place] [address] Anesthesia Postop Eval I 05/07/25 1257 MR#: [id number] Acct: [id number] Name: PATRIA JOHNSON Rep #:[id number] : 1970 54 From: Iris HALLMAN PCP: Clemencia Guadalupe DO Status:REG [facility] Y Race: C Location: [place] [address] Anesthesia: Postop Eval I Current Vital Signs [...] Postop Eval 1 completed: Yes 05/07/25 1258 NECKTIES PAINTER> Date _ Iris Berg NECKTIES PAINTER Cosigner Signature: Date CC: ~ Signed [facility]07-09-2025 History and physical note Author Yannick Bourne [facility] Note Date/Time May 07, 2025 8:06a m [facility] Medical Records Department [address] [place] [address] H&P Exam - Surgical 05/07/25 0702 MR#: [id number] Acct: [id number] Name: PATRIA JOHNSON Rep #:[id number] : 1970 54 From: Yannick Bourne MD PCP: Clemencia Guadalupe DO Status:REG [facility] Location: [place] [address] HPI - General HPI Narrative Breast Reduction [...] has resolved. Ready to proceed with surgery. [facility] Medical History Depression Anxiety Diabetes Arthritis Anemia [...] OF BLOOD CLOTS Physical Exam Narrative Female senior care manager was present during my examination BMI: 41.8 [...] 3 Const General: cooperative and well developed [facility] Head: normocephalic Eyes General: appearance normal, both [...] Yannick Bourne MD; Clemencia Guadalupe DO~ Signed [facility] Work Phone: 1(197) 483-566107-09-2025 Consult note Author Desean Bateman [facility] Note Date/Time May 07, 2025 7:53a m [facility] Medical Records Department [address] [place] [address] Pre-Anesthesia Evaluation 05/07/25 0741 MR#: [id number] Acct: [id number] Name: PATRIA JOHNSON Rep #:[id number] : 1970 54 From: Desean Ronquillo PCP: Clemencia Guadalupe DO Status:REG SDC Y Race: C Location: [place] [address] ASA Classification* ASA Classification ASA Classification: 3 [...] nipple grafting Anesthesia History 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: 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 Hx Hospitalization No 05/05/25 09:35 Any Problems [...] take am of surgery PONV PONV - curator of collections: PONV - curator of collections Female Yes 05/05/25 09:35 HX of Motion [...] 05/07/25 06:50 Respiratory Assessment Respiratory Assessment - curator of collections: Respiratory Tract Infection Hx - curator of collections Hx Respiratory Tract Infection No 05/05/25 09:35 STOP Sleep Apnea STOP Sleep Apnea - curator of collections: STOP Sleep Apnea - curator of collections Hx Hypertension Yes: on meds 05/05/25 09:35 [...] Tobacco Use History Tobacco Use History - curator of collections: Tobacco Use History - curator of collections Tobacco Use Smoking Status Never smoker 05/05/25 09:35 Hx Tobacco Use No 05/05/25 09:35 Years Smoking Packs Smoked per Day Smoking Cessation Date was within the last 15 years Hx Smoking Cessation Date Hx Smoking Cessation Counseling Hematologic Medial History Hematologic Hx - curator of collections: Hematologic 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.] safe at home: Yes 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 05/07/25 0753 <Electronically signed by Desean Bateman MD> Date _ Desean Bateman MD Cosigner Signature: Date CC: ~ Signed [facility] Work Phone: 1(925) 476-989907-09-2025 Evaluation note* Diagnosis Onset Date Resolution Status [...] breast reduction acute July 11, 2025 11:04am [facility] Work Phone: 1([phone]) [phone] Evaluation note* Diagnosis Onset Date Resolution Status [...] breast reduction acute July 24, 2025 11:06am [facility] Work Phone: 1([phone]) 274-525507-09-2025 History and physical note [facility] Medical Records Department [address] [place] [address] H&P Exam - Surgical 05/07/25 0702 MR#: [id number] Acct: [id number] Name: PATRIA JOHNSON Rep #:[id number] : 1970 54 From: Yannick Bourne MD PCP: Clemencia Guadalupe DO Status:REG [facility] Location: [place] [address] HPI - General HPI Narrative Breast Reduction [...] has resolved. Ready to proceed with surgery. [facility] Medical History Depression Anxiety Diabetes Arthritis Anemia [...] OF BLOOD CLOTS Physical Exam Narrative Female senior care manager was present during my examination BMI: 41.8 [...] 3 Const General: cooperative and well developed [facility] Head: normocephalic Eyes General: appearance normal, both [...] Yannick Bourne MD; Clemencia Guadalupe DO~ Signed [facility]07-09-2025 Consult note [facility] Medical Records Department [address] [place] [address] Pre-Anesthesia Evaluation 05/07/25 0741 MR#: [id number] Acct: [id number] Name: PATRIA JOHNSON Rep #:[id number] : 1970 54 From: Desean Ronquillo PCP: Clemencia Guadalupe DO Status:REG SDC Y Race: C Location: [place] [address] ASA Classification* ASA Classification ASA Classification: 3 [...] nipple grafting Anesthesia History 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: 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 Hx Hospitalization No 05/05/25 09:35 Any Problems [...] take am of surgery PONV PONV - curator of collections: PONV - curator of collections Female Yes 05/05/25 09:35 HX of Motion [...] 05/07/25 06:50 Respiratory Assessment Respiratory Assessment - curator of collections: Respiratory Tract Infection Hx - curator of collections Hx Respiratory Tract Infection No 05/05/25 09:35 STOP Sleep Apnea STOP Sleep Apnea - curator of collections: STOP Sleep Apnea - curator of collections Hx Hypertension Yes: on meds 05/05/25 09:35 [...] Tobacco Use History Tobacco Use History - curator of collections: Tobacco Use History - curator of collections Tobacco Use Smoking Status Never smoker 05/05/25 09:35 Hx Tobacco Use No 05/05/25 09:35 Years Smoking Packs Smoked per Day Smoking Cessation Date was within the last 15 years Hx Smoking Cessation Date Hx Smoking Cessation Counseling Hematologic Medial History Hematologic Hx - curator of collections: Hematologic 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 Hx of Blood Transfusion No 05/05/25 09:35 [...] confused, unrespo /Reproduction History /Reproductive History - curator of collections: /Reproductive Hx- curator of collections Hx Now No 05/05/25 09:35 Gestational Age [...] MD Cosigner Signature: Date CC: ~ Signed [facility]05-01-2025 Evaluation note* Diagnosis Onset Date Resolution Status Admit Date Macromastia acute February 27, 2025 2:37pm Macromastia acute May 07 7:14am [facility] Work Phone: 1([phone]) 465-382905-01-2025 Evaluation note* Diagnosis Onset Date Resolution Status Admit Date Macromastia resolved February 27, 2025 2:37pm Macromastia resolved May 07 7:14am Status post breast reduction acute May 12, 2025 3:51pm [facility] Work Phone: 1([phone]) 585-719705-01-2025 Evaluation note* Diagnosis Onset Date Resolution Status Admit Date Macromastia resolved February 27, 2025 2:37pm Macromastia resolved May 07 7:14am Status post breast reduction acute May 12, 2025 3:51pm Status post breast reduction acute May 16, 2025 9:44am [facility] Work Phone: 1([phone]) [phone] Evaluation note* Diagnosis Onset Date Resolution Status [...] breast reduction acute May 26, 2025 9:55pm [facility] Work Phone: 1(561) 271-580405-01-2025 Evaluation note* Diagnosis Onset Date Resolution Status [...] breast reduction acute May 30, 2025 11:23am [facility] Work Phone: 1([phone]) [phone] Evaluation note* Diagnosis Onset Date Resolution Status [...] breast reduction acute June 05, 2025 11:14am [facility] Work Phone: 1([phone]) 123-741105-01-2025 Evaluation note* Diagnosis Onset Date Resolution Status [...] breast reduction acute June 20, 2025 10:28am [facility] Work Phone: [phone] Evaluation note* Diagnosis Onset Date Resolution Status Admit Date Macromastia acute November 1:38pm [facility] Work Phone: [phone] NotePap Smear Specimen AdequacyMarch 2022 5:05pmComment.Satisfactory for evaluation. No endocervical component is identified.[facility] INTER[facility] A#[id number] Memorial HospitalComment on above:Satisfactory for evaluation. No endocervical component is identified. 01-18-2023 NotePap Smear Specimen AdequacyMarch 2022 5:05pmComment. Satisfactory for evaluation. No endocervical component is identified.[facility] A#[id number] Memorial HospitalComment on above:Satisfactory for evaluation. No endocervical component is identified.01-18-2023 NotePap Smear Specimen AdequacyMarch 2022 5:05pmComment.Satisfactory for evaluation. No endocervical component is identified.[facility] A#[id number] Memorial HospitalComment on above:Satisfactory for evaluation. No endocervical component is identified.Consult note Author Jossy Acevedo [facility] Note Date/Time May 28, 2025 12:2 0pm [facility] Medical Records Department [address] [place] [address] Counseling Note - Pharmacy 05/28/25 1219 MR#: [id number] Acct: [id number] Name: GLORIAPATRIA RIGOBERTO Rep #:[id number] : 1970 54 From: Jossy Acevedo PCP: Clemencia Guadalupe DO Status:ADM IN Y [facility] Counseling Pharmacy Service has performed [...] Signature (if applicable): Date CC: ~ Signed [facility] Work Phone: Evaluation noteNo assessment information available [facility] Work Phone: Evaluation note* Diagnosis Onset Date Resolution Status Encounter for routine gynecological examination noneactive [facility] Work Phone: Hospital Discharge instructionsAdditional Instructions Operations [...] when the drainage fills the bulb almost long term. Please keep daily amounts of drainage separate [...] document) At your earliest convenience, please call [phone] to confirm/schedule a follow-up appointment with me [...] or if you have any questions, call [phone] Work Phone: Hospital Discharge instructionsAmbulatory Orders* Dermatology Location: None [facility] Work Phone: Progress note Author Mindy Carmona [facility] Note Date/Time July 24, 2025 11:33am [facility] [address], [address] [place] [address] OFFICE VISIT Date of Service: 07/24/25 MR#: [id number] Acct: [id number] Name: PATRIA JOHNSON Rep #: [id number] : 1970 Provider: BENJIE Mederos Age/Sex: 54/F Location: [facility] Status: Signed Intake Vital Signs 3 07/11/25 [...] skin resection and axillary/lateral chest liposuction (CPT: 26660 x 2 with 50 modifier) pediatric intensive physician: Yes Recorder Of Deeds: bau Tasks completed by clinical nursing assistant: Closing and Retracting Type of Anesthesia: General/Supplemental [...] post breast reduction Z98.890 Pyoderma gangrenosum L88 [facility] Medical History (Updated 07/24/25 @ 13:05 by [...] Cosigner Signature: Date (if applicable) CC: ~ [facility] Work Phone: Reason for referral (narrative)No reason for referral information availableWSt. [facility] Work Phone: Summary Purpose Family History No Family History Records Found Relationship Condition Age at Onset Recorded Date/T sonny mother Hypertension Unknown Cerebrovascular accident (CVA) Unknown father Hypertension Unknown Advance Directives No Advanced Directives Records Found Advance Directive Response Recorded Date/ Time Do you have a Healthcare Power of Rn Or Lpn? No May 05, 2025 9:35am Advance Directive Response Recorded Date/ Time Do you have a Healthcare Power of Rn Or Lpn? No May 05, 2025 9:35am Do you have a Healthcare Power of Rn Or Lpn? No May 26, 2025 9:17pm Advance Directive Response Recorded Date/ Time Do you have a Healthcare Power of Rn Or Lpn? No May 05, 2025 9:35am Do you have a Healthcare Power of Rn Or Lpn? 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] 2025 End: January 13, 2025 Santa Burk ASSOCIATE DIRECTOR OF NURSING, ASSOCIATE DIRECTOR OF NURSING-C Attending Provider Active Start: January 13, 2025 End: January 13, 2025 Santa Burk ASSOCIATE DIRECTOR OF NURSING, ASSOCIATE DIRECTOR OF NURSING-C Referring Provider Active Start: January 13, 2025 End: January 13, 2025 Team Status: Active Member Role/Relationship Status Dates Clemencia Guadalupe VSC, DO Primary Care Provider Active Team Status: Inactive Member Role/Relationship Status Dates Clemencia Guadalupe VSC, DO Primary Care Provider Active Start: January 13, 2025 End: January 13, 2025 Santa Burk ASSOCIATE DIRECTOR OF NURSING, ASSOCIATE DIRECTOR OF NURSING-C Attending Provider Active Start: January 13, 2025 End: January 13, 2025 Santa Burk ASSOCIATE DIRECTOR OF NURSING, ASSOCIATE DIRECTOR OF NURSING-C Referring Provider Active Start: January 13, 2025 [...] Team Status: Active Member Role/Relationship Status Dates Clemencai Zuniganger VSC, DO Primary Care Provider Active [...] Provider Active Start: May 26, 2025 Dr. Chirs Calhoun , DO Emergency Provider Active Start [...] Status: Inactive Member Role/Relationship Status Dates Clemencia Reilyler VSC, DO Primary Care Provider Active Start: [...] July 11, 2025 End: July 11, 2025 Clemecnia Collins VSC, DO Referring Provider Active Start: [...] BE BASED ON THE PRIMARY CLINICAL RECORDS. [facility] [employer] provides no warranty or guarantee of the accuracy or completeness of information in this document.
[2025-08-19] MEDS: Vancomycin HCl 1,750 MG in 0.9% Normal Saline (500mL Bag) 500 ML 250 MG IV (20:49)
[2025-08-19] MEDS: 0.9% Normal Saline (1000mL) 1,000 ML 150 ML IV (20:52)
[2025-08-19 20:53] VITALS: BP 149/90; PULSE 98; RESP 13; TEMP 37.2; O2SAT 97
[2025-08-19 20:55] VITALS: BP 149/90; PULSE 99; RESP 13; TEMP 37.2; O2SAT 96
[2025-08-19 21:00] VITALS: BP 148/91; PULSE 96; RESP 12; O2SAT 96
[2025-08-19 22:07] VITALS: BMI 42.0
[2025-08-19 22:12] VITALS: BP 150/100; PULSE 99; RESP 18; TEMP 36.9; O2SAT 97
[2025-08-19 22:23] LABS: Reflex Lactate? Y
[2025-08-19] MEDS: 0.9% Normal Saline (1000mL) 1,000 ML 999 ML IV (22:54)
[2025-08-19] MEDS: Lactobacillis Acidophilus 1 CAP PO (22:56)
--- NOTE | 2025-08-19 22:56 | PCM.RX.CS ---
Consult Antibiotic Management Pharmacy has been consulted to manage selected antibiotic: Vancomycin Type of Intervention Type of Consult: New start Labs Labs: Sodium 137 mmol/L (133-145) 08/19/25 18:18 Potassium 3.5 mmol/L (3.3-5.1) 08/19/25 18:18 Chloride 99 mmol/L (98-108) 08/19/25 18:18 Carbon Dioxide 25.6 mmol/L (21.0-32.0) 08/19/25 18:18 Anion Gap 13 (5-15) 08/19/25 18:18 BUN 11 mg/dL (4-19) 08/19/25 18:18 Creatinine 0.79 mg/dL (0.70-1.20) 08/19/25 18:18 Est GFR (MDRD) Non-Af 89 (>60) 08/19/25 18:18 BUN/Creatinine Ratio 14.1 RATIO (10-20) 08/19/25 18:18 Glucose 168 mg/dL (70-99) H 08/19/25 18:18 Dosing Weight Weight used for dosin.2 kg Estimated Creatinine Clearance Estimated Creatinine Clearance: 100.82 Goal Trough Goal Trough: 15-20 mcg/mL Pharmacy Plan for Drug Dosing Pharmacy Plan for Drug Dosing: Pharmacy Service will continue to monitor and adjust dosing as required. ER DOSE 1750MG GIVEN 08/19 @ 1815. START 1500MG Q8H AND DRAW TROUGH PRIOR TO 4TH DOSE Follow-Up Labs Follow-Up Labs: Trough: Vancomycin Date/Time Labs Ordered Labs to be done on [date and time ordered]: 08/20 @ 1800
[2025-08-19 23:58] VITALS: BP 159/92; PULSE 94; RESP 16; TEMP 36.7; O2SAT 97
[2025-08-20 00:29] LABS: Staph aureus DNA By PCR NEGATIVE (Negative)
[2025-08-20] MEDS: 0.9% Normal Saline (1000mL) 1,000 ML 150 ML IV (00:35)
[2025-08-20 04:12] VITALS: BP 141/91; PULSE 83; RESP 16; TEMP 36.5; O2SAT 96
[2025-08-20 07:06] LABS: Cholesterol 182 mg/dL (<=200); Low Density Lipoprotein Calc. 109 mg/dL; Triglycerides 116 mg/dL; Very Low Density Lipoprotein 23 mg/dL (5-40); cholesterol:hdl ratio screen 3.46
--- NOTE | 2025-08-20 08:09 | WOUNDNOTE ---
In to see patient this am with BENJIE Carmona. dressings removed from biopsy sites bilateral breasts. minimal drainage noted. redness noted to bilateral breasts with L>R. redness appears to be improving. cleansed sites with soap and water. pat dry. applied new dry dressings and secured with tape. pt tolerated well. see wound photos in progress note.
[2025-08-20 08:36] VITALS: BP 146/91; PULSE 86; RESP 16; TEMP 36.4; O2SAT 97
[2025-08-20] MEDS: Lactobacillis Acidophilus 1 CAP PO ×4 (08:42→22:29)
[2025-08-20] MEDS: Potassium Chloride Oral Tablet 10 MEQ PO (08:42)
[2025-08-20] MEDS: Cholecalciferol (Vit D3) 125 MCG CAPSULE (5,000 UNITS) PO (08:44)
[2025-08-20] MEDS: buPROPion (XL) 150 MG TABLET.XL PO (08:44)
[2025-08-20] MEDS: Zinc Sulfate 50 mg zinc (220 mg) ORAL capsule PO (08:44)
[2025-08-20] MEDS: Vancomycin HCl 1,500 MG in 0.9% Normal Saline (500mL Bag) 500 ML 175 MG IV ×2 (08:55→16:47)
--- NOTE | 2025-08-20 10:22 | PN.HOSP_ITS ---
Reason for Visit Chief Complaint: Left Breast Redness and Swelling with Fever. Subjective Subjective Seen and examined Patient's present near the bedside. Took verbal permission for breast exam from the patient and her . Patient has allergic reaction to penicillin in childhood with redness, airway edema/angioedema possible anaphylaxis. On IV vancomycin and Levaquin Physical General: Alert, Oriented x3, Cooperative HEENT: Atraumatic, PERRLA, EOMI, Normocephalic. Oral: No Gingival or Mucosal Lesions/ Ulcerations Neck: Supple, No JVD, Negative Carotid Bruits Chest wall/Lungs: Air entry diminished in bilateral lung bases. No crepitation/rhonchi Breast: Tenderness present on left more than right. Redness and tenderness on left breast tracking to the posterior axillary/lateral margin of left scapula. Biopsy from both inferior aspect of both breast. Right breast is tender and red. No open drainage Cardiovascular: Regular rate and rhythm, Normal S1,S2, No M/G/R Abdomen: Bowel Sounds Present, Soft, Non Tender, Non-Distended : No dysuria. No renal angle tenderness. No suprapubic tenderness. Extremities: No edema, Capillary Refill Less than 3 Seconds Skin: No rashes, No breakdown Musculoskeletal: No Tenderness to Palpation of Joints or Extremities Neurological: Cranial nerves II-XII grossly intact, DTR 2+/4. No acute focal neurological deficit. Psych/Mental Status: Normal Affect, Appropriate. Objective Data Objective Data Vital Signs: Vital Signs Temp Pulse Resp BP Pulse Ox O2 Del Method 97.5 F L 86 16 146/91 H 97 Room Air 08/20/25 08:36 08/20/25 08:36 08/20/25 08:36 08/20/25 08:36 08/20/25 08:36 08/20/25 08:36 Oxygen Delivery Method Room Air Weight: 245 lb 2.464 oz Body Mass Index (BMI) 42.0 Intake & Output: Intake and Output for Last 24 Hours 08/18/25 08/19/25 08/20/25 23:59 23:59 23:59 Intake Total 1452.5 / 1452.5 892.5 / 892.5 Balance 1452.5 / 1452.5 892.5 / 892.5 Lab / Micro Data 08/19/25 18:18 08/19/25 18:18 Labs: Laboratory Results - last 24 hr 08/19/25 18:18: WBC 17.8 H, RBC 4.89, Hgb 14.5, Hct 41.1, MCV 84.0, MCH 29.7, MCHC 35.3, RDW Std Deviation 41.6, RDW Coeff of Edison 13.5, Plt Count 287, MPV 9.7, Immature Gran % (Auto) 1.000 H, Neut % (Auto) 79.0 H, Lymph % (Auto) 9.9 L, [place] % (Auto) 7.8, Eos % (Auto) 1.9, Baso % (Auto) 0.4, Absolute Neuts (auto) 14.1 H, Absolute Lymphs (auto) 1.77, Nucleated RBC % 0, Sodium 137, Potassium 3.5, Chloride 99, Carbon Dioxide 25.6, Anion Gap 13, BUN 11, Creatinine 0.79, Estim Creat Clear Calc 100.82, Est GFR (MDRD) Non-Af 89, BUN/Creatinine Ratio 14.1, Glucose 168 H, Hemoglobin A1c 7.0 H, Lactic Acid 2.1 H*, Calcium 9.0, TSH 0.443 08/19/25 22:33: POC Glucose 122 H 08/19/25 22:38: Lactic Acid 1.2 08/19/25 22:45: S.aureus Protein A PCR NEGATIVE, MRSA (PCR) Negative 08/20/25 05:05: Triglycerides 116, Cholesterol 182, LDL Cholesterol, Calc 109, VLDL Cholesterol 23, HDL Cholesterol 53, Cholesterol/HDL Ratio 3.46 08/20/25 06:35: POC Glucose 196 H Assessment & Plan Assessment/Plan (1) Cellulitis of left breast: (2) Leukocytosis: QUALIFIERS: Leukocytosis type: bandemia Qualified Code(s): D 72.825 - Bandemia (3) Lactic acidosis: (4) Fever: QUALIFIERS: Fever type: unspecified Qualified Code(s): R50.9 - Fever, unspecified (5) Pyoderma gangrenosum: (6) Morbid obesity with BMI of 40.0-44.9, adult: PLAN: Plan 54-year-old female with history of pyoderma gangrenosum and had 3 separate biopsies each improved with steroid treatment. She still does have recurrence of lesions with steroid taper. After biopsy on 08/18, she had bilateral breast redness left more than right 1. Acute on recurrent bilateral breast cellulitis, left more than right with pyoderma gangrenosum after breast reduction surgery on April 1925: Patient is being admitted to PCU. Had inconclusive biopsy on chronic steroid treatment followed by Dr. Maddox of plastic surgery. Had recent left breast biopsy 1 day before readmission. Leukocytosis of 17.8 K with a Left-shift of 1% in addition to Lactic Acidosis of 2.1 mmol. Patient has a lactic acidosis but did not had other criteria for sepsis and does not look septic or toxic in appearance therefore sepsis ruled out. Patient started on IV vancomycin and Zosyn in ED. Wound culture on 08/19 growing 1+ GPC and 1+ GPR. Wound culture from 08/18 shows mixed gram-positive organism 2+. For pyoderma gangrenosum, does recommend his prednisone 60 mg daily with taper. Therefore, equivalent dose of Solu-Medrol is about 48 mg daily. IV Solu-Medrol dose decreased to 20 mg every 8 hourly. 2. DM type II: Glucose high about 200. A1c 7.0%. Started on Lantus 50 mg daily with scheduled Humalog insulin 8 units 3 times daily with Accu-Chek before meals and at bedtime with Humalog sliding scale coverage and hypoglycemia protocol. 3. Morbid (class III) obesity; with a BMI of 42.3 this admission on tirzepatide adding to the burden of disease outlined in #1 & #2 - Weight loss will be recommended. Check TSH. This complicates her case and may hamper recovery. Hold tirzepatide while inpatient. 4. Essential hypertension; on lisinopril - Hold scheduled antihypertensives in light of #1. Given IV hydralazine as needed for systolic blood pressure greater than 160 mmHg. 5. History of oral herpes simplex virus; on valacyclovir twice daily as needed - Maintain present treatment. 6. Depression with anxiety; on bupropion and fluoxetine - Resume home regimen. DVT prophylaxis - Enoxaparin 40 mg sq BID plus SCD's. 08/19/25 22:45 Wound - Breast, Left Gram Stain - Final Laboratory Results 08/19/25 18:18: WBC 17.8 H, RBC 4.89, Hgb 14.5, Hct 41.1, MCV 84.0, MCH 29.7, MCHC 35.3, RDW Std Deviation 41.6, RDW Coeff of Edison 13.5, Plt Count 287, MPV 9.7, Immature Gran % (Auto) 1.000 H, Neut % (Auto) 79.0 H, Lymph % (Auto) 9.9 L, [place] % (Auto) 7.8, Eos % (Auto) 1.9, Baso % (Auto) 0.4, Absolute Neuts (auto) 14.1 H, Absolute Lymphs (auto) 1.77, Nucleated RBC % 0, Sodium 137, Potassium 3.5, Chloride 99, Carbon Dioxide 25.6, Anion Gap 13, BUN 11, Creatinine 0.79, Estim Creat Clear Calc 100.82, Est GFR (MDRD) Non-Af 89, BUN/Creatinine Ratio 14.1, Glucose 168 H, Hemoglobin A1c 7.0 H, Lactic Acid 2.1 H*, Calcium 9.0, TSH 0.443 08/19/25 22:33: POC Glucose 122 H 08/19/25 22:38: Lactic Acid 1.2, Vit D 1,25-Dihydroxy Pending 08/19/25 22:45: S.aureus Protein A PCR NEGATIVE, MRSA (PCR) Negative 08/20/25 05:05: Triglycerides 116, Cholesterol 182, LDL Cholesterol, Calc 109, VLDL Cholesterol 23, HDL Cholesterol 53, Cholesterol/HDL Ratio 3.46 08/20/25 06:35: POC Glucose 196 H 08/20/25 11:33: POC Glucose 228 H Charges/Coding Visit Charges Inpatient E&M: 19988 Subs Hosp L2
--- NOTE | 2025-08-20 11:15 | CASEMGMT ---
RN CM ASSESSMENT RN CM to room to meet with patient for initial transition planning/care coordination assessment. RN JACEY introduced self and role at [facility]. Pt voices understanding and consents to assessment at this time. Pt resting in bed in no distress at this time. @ bedside. Pt is A/O at this time and answers all questions appropriately. Care providers, pharmacy, and demographics verified/updated at this time. Strata:2 PCP: Dr Guadalupe @ 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 Indpendent. Works full-time. Transportation: Pt states drives self and states no transportation concerns at this time. DME: Denies using any DME and denies needs. HHC/SNF: No hx Pt wishes to return home and states has no concerns with going home at time of discharge. CM to follow for discharge planning/needs. Pt and voice no concerns/needs at this time. Advised them to ask for CM if any questions/concerns/needs arise. They voice understanding. PLAN: Home Sarah Beth SHELTON RN, CM
[2025-08-20] MEDS: 0.9% Normal Saline (1000mL) 1,000 ML 70 ML IV (12:48)
[2025-08-20 14:55] VITALS: BP 146/94; PULSE 106; RESP 18; TEMP 36.5; O2SAT 94
--- NOTE | 2025-08-20 16:07 | PCM.PN.SRG ---
Subjective Subjective Patient seen this morning with Dr. Bourne and at bedside. No drainage from biopsy sites, scant drainage from bilateral blisters. She states she feels better today and no longer nauseas. She's able to keep down fluids. She has been walking in her room. Objective Data Objective Data Vital Signs: Vital Signs Temp Pulse Resp BP Pulse Ox O2 Del Method 97.7 F L 106 H 18 146/94 H 94 Room Air 08/20/25 14:55 08/20/25 14:55 08/20/25 14:55 08/20/25 14:55 08/20/25 14:55 08/20/25 16:02 Oxygen Delivery Method Room Air Weight: 245 lb 2.464 oz Body Mass Index (BMI) 42.0 Intake & Output: Intake and Output for Last 24 Hours 08/18/25 08/19/25 08/20/25 23:59 23:59 23:59 Intake Total 1452.5 / 1452.5 2065.0 / 2065.0 Balance 1452.5 / 1452.5 2065.0 / 2065.0 Lab / Micro Data Attestation: I reviewed the patient's lab results. 08/19/25 18:18 08/19/25 18:18 Labs: Laboratory Results - last 24 hr 08/19/25 18:18: WBC 17.8 H, RBC 4.89, Hgb 14.5, Hct 41.1, MCV 84.0, MCH 29.7, MCHC 35.3, RDW Std Deviation 41.6, RDW Coeff of Edison 13.5, Plt Count 287, MPV 9.7, Immature Gran % (Auto) 1.000 H, Neut % (Auto) 79.0 H, Lymph % (Auto) 9.9 L, [place] % (Auto) 7.8, Eos % (Auto) 1.9, Baso % (Auto) 0.4, Absolute Neuts (auto) 14.1 H, Absolute Lymphs (auto) 1.77, Nucleated RBC % 0, Sodium 137, Potassium 3.5, Chloride 99, Carbon Dioxide 25.6, Anion Gap 13, BUN 11, Creatinine 0.79, Estim Creat Clear Calc 100.82, Est GFR (MDRD) Non-Af 89, BUN/Creatinine Ratio 14.1, Glucose 168 H, Hemoglobin A1c 7.0 H, Lactic Acid 2.1 H*, Calcium 9.0, TSH 0.443 08/19/25 22:33: POC Glucose 122 H 08/19/25 22:38: Lactic Acid 1.2 08/19/25 22:45: S.aureus Protein A PCR NEGATIVE, MRSA (PCR) Negative 08/20/25 05:05: Triglycerides 116, Cholesterol 182, LDL Cholesterol, Calc 109, VLDL Cholesterol 23, HDL Cholesterol 53, Cholesterol/HDL Ratio 3.46 08/20/25 06:35: POC Glucose 196 H 08/20/25 11:33: POC Glucose 228 H Micro: Microbiology 08/19/25 22:45 Wound - Breast, Left Gram Stain - Final Physical Exam Narrative Afebrile/VSS. Lying in bed in no acute distress Bilateral breast erythema improving with less involved areas. Diffuse induration improving, scant drainage noted on bilateral dressing from previous breast blister, no progression. No fluid collection. Tenderness to bilateral breast palpation No induration noted on bilateral nipples Assessment & Plan Assessment/Plan (1) Cellulitis: QUALIFIERS: Site of cellulitis: other site Qualified Code(s): L03.818 - Cellulitis of other sites (2) Lactic acidosis: PLAN: Plan Appreciate hospitalist for medical comanagement Continue management for presumed bilateral breast cellulitis IV vancomycin and Levaquin. 1+ GPC, 1+GNR OK to advance to diabetic diet On Methylprednisolone 20mg Q8hrs for pyoderma granulosum DVT ppx: Encouraged ambulating regularly, SCD's, SQ Lovenox PSU continue to follow Charges/Coding Visit Charges Inpatient E&M: 42635 Subs Hosp L2
--- NOTE | 2025-08-20 16:40 | CON.PCM.ID_ITS ---
Assessment & Plan Assessment/Plan (1) Sepsis: QUALIFIERS: Sepsis type: sepsis due to unspecified organism S epsis acute organ dysfunction status: without acute organ dysfunction Qualified Code(s): A41.9 - Sepsis, unspecified organism PLAN: Improving, cont vanc/levaquin. Wound cx with mixed gram pos so far. Will follow, thank you (2) Cellulitis of left breast: (3) Pyoderma gangrenosum: HPI Consult Data Date of Consult: 08/20/25 HPI Narrative Reason for Consultation: cellulitis HPI Narrative: ANEUDY CASTRO, is a 54 F with bilat breast reduction surgery 05/07/[address] Bourne. Recent dx with pyoderma gangrenosum, improved with steroid taper. Had skin biopsy done 08/18 but after developed progressive fever, chills, redness, drainage, nausea, not feeling well. Came to ED, admitted on vanc and now on levaquin. Feeling better, seen by plastic surgery. Full ROS performed and neg except as noted above. [facility] Medical History Pyoderma gangrenosum Depression Anxiety Diabetes Arthritis Anemia Easy bruising History of diverticulitis History of IBS Non-smoker Shortness of breath on exertion Contraceptive management GERD (gastroesophageal reflux disease) Vitamin D deficiency Hyperhidrosis Hypertension Home Medications Medication Instructions Recorded Last Taken Type fluoxetine 40 mg capsule (Prozac) 40 mg PO DAILY mood 01/06/22 05/06/25 16:00 History levonorgestrel 20.4 mcg/24 hr (up 1 device intrauterin e ONCE child 01/06/22 Unknown History to 8 yrs) 52 mg intrauterine device (Liletta) bupropion HCl 150 mg 24 hr tablet, 150 mg PO QDAY mood 12/26/24 05/06/25 06:00 History extended release tirzepatide 2.5 mg/0.5 mL 2.5 mg subcut FR weight lose 12/26/24 04/18/25 History subcutaneous pen injector (Mounjaro) valacyclovir 500 mg tablet 500 mg PO BID PRN cold sore s 03/31/25 Unknown History (Valtrex) hyoscyamine sulfate 0.125 mg tablet 0.125 mg PO Q12H P RN PRN dyspepsia 05/05/25 05/06/25 18:00 History lisinopril 20 mg tablet 20 mg PO QDAY blood pressure 06/20/25 Unknown History potassium chloride 20 mEq 20 meq PO QDAY supplement Unknown History tablet,extended release prednisone 20 mg tablet 20 mg PO DAILY steroid 07/11 Unknown History Allergy/AdvReac Type Severity Reaction Status Date / Time clindamycin Allergy Hives Verified 08/19/25 22:39 erythromycin base Allergy Anaphylaxis Verified 08/19/25 22:39 penicillin V Allergy Hives Verified 08/19/25 22:39 Sulfa (Sulfonamide Allergy Anaphylaxis Verified 08/19/25 22:39 Antibiotics) Family History Mother Hypertension CVA (cerebral vascular accident) Father Hypertension Surgical History Hx of LASIK S/P cholecystectomy H/O: Social History household members: spouse housing: house Smoking Status: Never smoker alcohol intake: never substance use type: does not use caffeine: Yes what type of physical activity do you participate in: none seatbelt use: always do you feel safe at home: Yes 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 Neuro CN's II-XII intact bilaterally Lab / Micro Data Attestation: I reviewed the patient's lab results. 08/19/25 18:18 08/19/25 18:18 Labs: Laboratory Results - last 24 hr 08/19/25 18:18: WBC 17.8 H, RBC 4.89, Hgb 14.5, Hct 41.1, MCV 84.0, MCH 29.7, MCHC 35.3, RDW Std Deviation 41.6, RDW Coeff of Edison 13.5, Plt Count 287, MPV 9.7, Immature Gran % (Auto) 1.000 H, Neut % (Auto) 79.0 H, Lymph % (Auto) 9.9 L, [place] % (Auto) 7.8, Eos % (Auto) 1.9, Baso % (Auto) 0.4, Absolute Neuts (auto) 14.1 H, Absolute Lymphs (auto) 1.77, Nucleated RBC % 0, Sodium 137, Potassium 3.5, Chloride 99, Carbon Dioxide 25.6, Anion Gap 13, BUN 11, Creatinine 0.79, Estim Creat Clear Calc 100.82, Est GFR (MDRD) Non-Af 89, BUN/Creatinine Ratio 14.1, Glucose 168 H, Hemoglobin A1c 7.0 H, Lactic Acid 2.1 H*, Calcium 9.0, TSH 0.443 08/19/25 22:33: POC Glucose 122 H 08/19/25 22:38: Lactic Acid 1.2 08/19/25 22:45: S.aureus Protein A PCR NEGATIVE, MRSA (PCR) Negative 08/20/25 05:05: Triglycerides 116, Cholesterol 182, LDL Cholesterol, Calc 109, VLDL Cholesterol 23, HDL Cholesterol 53, Cholesterol/HDL Ratio 3.46 08/20/25 06:35: POC Glucose 196 H 08/20/25 11:33: POC Glucose 228 H Micro: Microbiology 08/19/25 22:45 Wound - Breast, Left Gram Stain - Final
[2025-08-20] MEDS: Insulin Glargine-YFGN 100 UNIT/ML Pen 15 UNIT SC (17:14)
[2025-08-20 22:25] VITALS: BP 150/82; PULSE 80; RESP 17; TEMP 36.3; O2SAT 96
[2025-08-20 23:35] LABS: Vancomycin, Trough Level 19.9 ug/mL (5.0-15.0)
[2025-08-21] MEDS: Vancomycin HCl 1,500 MG in 0.9% Normal Saline (500mL Bag) 500 ML 175 MG IV ×2 (00:18→08:50)
--- NOTE | 2025-08-21 00:20 | PCM.RX.CS ---
Consult Antibiotic Management Pharmacy has been consulted to manage selected antibiotic: Vancomycin Type of Intervention Type of Consult: Follow-up Labs Labs: Sodium 137 mmol/L (133-145) 08/19/25 18:18 Potassium 3.5 mmol/L (3.3-5.1) 08/19/25 18:18 Chloride 99 mmol/L (98-108) 08/19/25 18:18 Carbon Dioxide 25.6 mmol/L (21.0-32.0) 08/19/25 18:18 Anion Gap 13 (5-15) 08/19/25 18:18 BUN 11 mg/dL (4-19) 08/19/25 18:18 Creatinine 0.79 mg/dL (0.70-1.20) 08/19/25 18:18 Est GFR (MDRD) Non-Af 89 (>60) 08/19/25 18:18 BUN/Creatinine Ratio 14.1 RATIO (10-20) 08/19/25 18:18 Glucose 168 mg/dL (70-99) H 08/19/25 18:18 Vancomycin Trough 19.9 ug/mL (5.0-15.0) H 08/20/25 23:10 Microbiology Microbiology: Microbiology 08/19/25 22:45 Wound - Breast, Left Gram Stain - Final Dosing Weight Weight used for dosin.2 kg Estimated Creatinine Clearance Estimated Creatinine Clearance: 101 Goal Trough Goal Trough: 15-20 mcg/mL Pharmacy Plan for Drug Dosing Pharmacy Plan for Drug Dosing: Vancomycin trough level of 19.9, drawn 7.3hrs post-dose, was within the target range of 15-20. Will continue dosing at 1500mg q8h, and will draw another trough level in two days. Pharmacy Service will continue to monitor and adjust dosing as required. Follow-Up Labs Follow-Up Labs: Trough: Vancomycin Date/Time Labs Ordered Labs to be done on [date and time ordered]: 08/22/25 @7305
[2025-08-21 04:36] VITALS: BP 161/87; PULSE 87; RESP 16; TEMP 36.6; O2SAT 95
[2025-08-21] MEDS: 0.9% Saline Lock 10 ML Syringe IV (06:31)
[2025-08-21 08:33] LABS: Estimated Creatinine Clearance 105.86 ml/min (50-250)
[2025-08-21] MEDS: Lactobacillis Acidophilus 1 CAP PO (08:40)
[2025-08-21] MEDS: Potassium Chloride Oral Tablet 10 MEQ PO (08:40)
[2025-08-21] MEDS: buPROPion (XL) 150 MG TABLET.XL PO (08:41)
[2025-08-21] MEDS: Zinc Sulfate 50 mg zinc (220 mg) ORAL capsule PO (08:41)
[2025-08-21] MEDS: Cholecalciferol (Vit D3) 125 MCG CAPSULE (5,000 UNITS) PO (08:41)
[2025-08-21 08:53] VITALS: BP 172/105; PULSE 86; RESP 16; TEMP 36.3; O2SAT 98
[2025-08-21 10:03] LABS: Hematocrit 38.1 % (37-47); Hemoglobin 13.1 g/dL (12.0-15.0); Immature Granulocytes Count 0.230 X10^3/uL (0.0-0.0); Mean Corp Hgb Conc 34.4 g/dL (32-36); Mean Corpuscular Volume 86.0 fL (81-99); Mean Platelet Vol. 10.5 fl (6.2-12.0); NRBC Flagged by Analyzer 0 % (0-5); Platelet Count 296 K/mm3 (150-450); RBC Distribution Width CV 13.9 % (11.6-14.6); RBC Distribution Width SD 43.0 fl (35.1-43.9); Red Blood Count 4.43 M/mm3 (4.2-5.4); White Blood Count 17.7 K/mm3 (4.4-11.0)
--- NOTE | 2025-08-21 10:04 | PCM.PN.ID ---
Physical Exam Narrative Feeling better, less pain, less redness. No fever, no n/v/d. Const alert and no apparent distress General Appearance: cooperative Resp normal air movement and clear to auscultation bilaterally Cardio regular rate and regular rhythm GI soft to palpation, non-tender and non-distended Skin Skin Narrative: L breast much improved erythema ID ID: Route of nutrition/ use of supplements: [] Nutritional Intake: [] IV Site: [] Hidalgo Catheter: [] Assessment & Plan Assessment/Plan (1) Sepsis: QUALIFIERS: Sepsis type: sepsis due to unspecified organism Sepsis acute organ dysfunction status: without acute organ dysfunction Qualified Code(s): A41.9 - Sepsis, unspecified organism PLAN: Improving, cont vanc, will stop levaquin. Wound cx with CoNS x2, corynebacterium striatum, strep. Pt with multiple drug allergies. Not candidate for linezolid unless she is able to pause her wellbutrin or prozac. Other options would be sivextro as an oral option (but could be very expensive), iv vanc via picc (risk of line complications), or one time infusion of dalvance or orbactiv. Will follow (2) Cellulitis of left breast: (3) Pyoderma gangrenosum:
[2025-08-21 10:25] LABS: Anion Gap 13 (5-15); BUN 10 mg/dL (4-19); BUN/Creat Ratio 13.8 RATIO (10-20); Calcium,Total 8.8 mg/dL (7.6-11.0); Carbon Dioxide 20.7 mmol/L (21.0-32.0); Chloride 109 mmol/L (98-108); Glucose 237 mg/dL (70-99); Potassium 3.7 mmol/L (3.3-5.1)
--- NOTE | 2025-08-21 10:47 | DCINST_ITS ---
Discharge Instructions DC O2, CPAP, BIPAP needs Home O2 Discharge instructions: No Dressing / Incision Discharge Activity: Return to Normal Activity Weight Bearing Status: Weight bearing as tolerated Dressing / Incision Call your doctor if you observe: Fever of 101 or Higher, Coldness, Increased Pain, Numbness or Tingling, Change in Color, Inability to urinate, Inability to have a bowel movement, Shortness of breath, Dizziness, Fainting spells, Swelling in the ankles, Chest pain, Prolonged hiccupping, Increased palpitations (irregular heartbeat) and Calf discomfort Follow Up Care When: IN 2 WEEKS Test Results: Test results from this visit will be discussed in further detail at your follow- up appointment, if applicable. Discharge Plan Admission Admit Date/Time: 08/19/25 20:27 Attending Provider: Gamal Lee Primary Care Provider: Clemencia Guadalupe Consulting Providers: Deion Ramírez; Yannick Bourne; Yannick Gong Discharge Orders/Prescriptions Prescriptions: New linezolid 600 mg tablet 600 mg PO BID 7 Days Qty: 14 0RF Continued Liletta 20.1 mcg/24 hrs (6 yrs) 52 mg intrauterine device 1 device intrauterine ONCE Rx Instructions: as a single dose Mounjaro 2.5 mg/0.5 mL pen injector 2.5 mg subcut FR potassium chloride 20 mEq tablet extended release 20 meq PO QDAY lisinopril 20 mg tablet 20 mg PO QDAY prednisone 20 mg tablet 20 mg PO DAILY valacyclovir [Valtrex] 500 mg tablet 500 mg PO BID PRN (Reason: cold sores) hyoscyamine sulfate 0.125 mg tablet 0.125 mg PO Q12H PRN PRN (Reason: dyspepsia) Held fluoxetine [Prozac] 40 mg capsule 40 mg PO DAILY Hold Instructions: Hold while taking linezolid bupropion HCl 150 mg tablet extended release 24 hr 150 mg PO QDAY Hold Instructions: Hold it if she can otherwise take 75 mg daily once daily while taking linezolid Referrals / Follow Up: Yannick Gong MD [Med Staff - Active Staff, Infectious Disease] - Within 1 Month Yannick Bourne MD [Med Staff - Active Staff, Plastic Surgery] - Within 1 Week Clemencia Guadalupe, DO [Primary Care Provider, Family Practice] Disposition Disposition (needs filled in before D/C Order can be placed): Home, Self Care
--- NOTE | 2025-08-21 12:03 | PCM.DC.SUM ---
Providers Date of Admission: 08/19/25 Date of Discharge: 08/21/25 Primary Care Physician: Clemencia Guadalupe [facility], DO Consultations 08/20/25 09:31 Consult: Plastic Surgery Routine Consulting Provider: Yannick Bourne Reason for Consult: Breast cellulitis B/L EMERGENT Consult: No MD Notified: Yes Date Notified: 08/19/25 Time Notified: 18:02 Method of Notification: ED Physician Initiated 08/20/25 10:19 Consult: Infectious Disease Routine Consulting Provider: Yannick Gong Reason for Consult: B/L Breast cellulitis, L>R, pyoderma gangrenosum, s/p B/Lbreast red surgery EMERGENT Consult: No MD Notified: Yes Date Notified: 08/20/25 Time Notified: 10:21 Method of Notification: Text Reason For Visit: LEFT BREAST CELLULITIS WITH POSSIBLE SEPSIS IN THE Diagnosis Discharge Diagnosis (1) Sepsis: Status: Acute Code(s): A41.9 - Sepsis, unspecified organism Qualifiers: Sepsis acute organ dysfunction status: without acute organ dysfunction Sepsis type: sepsis due to unspecified organism Qualified Code(s): A41.9 - Sepsis, unspecified organism (2) Cellulitis of left breast: Status: Acute Code(s): N61.0 - Mastitis without abscess (3) Pyoderma gangrenosum: Status: Acute Code(s): L88 - Pyoderma gangrenosum Plan 54-year-old female with history of pyoderma gangrenosum and had 3 separate biopsies each improved with steroid treatment. She still does have recurrence of lesions with steroid taper. After biopsy on 08/18, she had bilateral breast redness left more than right 1. Acute on recurrent bilateral breast cellulitis, left more than right with pyoderma gangrenosum after breast reduction surgery on April 1925: Patient is being admitted to PCU. Had inconclusive biopsy on chronic steroid treatment followed by Dr. Maddox of plastic surgery. Had recent left breast biopsy 1 day before readmission. Leukocytosis of 17.8 K with a Left-shift of 1% in addition to Lactic Acidosis of 2.1 mmol. Patient has a lactic acidosis but did not had other criteria for sepsis and does not look septic or toxic in appearance therefore sepsis ruled out. Patient started on IV vancomycin and Zosyn in ED. Wound culture on 08/19 growing 1+ GPC and 1+ GPR. Wound culture from 08/18 shows mixed gram-positive organism 2+. For pyoderma gangrenosum, does recommend his prednisone 60 mg daily with taper. Therefore, equivalent dose of Solu-Medrol is about 48 mg daily. IV Solu-Medrol dose decreased to 20 mg every 8 hourly. 08/21: Discussed with ID and plastic surgery. ID recommended 1 week of linezolid 600 mg twice daily. Prozac is on hold. Advised to hold bupropion too but if she cannot advised to only half dose 75 mg daily till she finished 1 week of linezolid because of drug-drug interaction. Plastic surgery okay with continuation of previous dose of prednisone 20 mg daily. 2. DM type II: Glucose high about 200. A1c 7.0%. Started on Lantus 50 mg daily with scheduled Humalog insulin 8 units 3 times daily with Accu-Chek before meals and at bedtime with Humalog sliding scale coverage and hypoglycemia protocol. 08/21: Glucose profile is better 167-195. It will improve as dose of steroid is decreased 3. Morbid (class III) obesity; with a BMI of 42.3 this admission on tirzepatide adding to the burden of disease outlined in #1 & #2 - Weight loss will be recommended. Check TSH. This complicates her case and may hamper recovery. Hold tirzepatide while inpatient. 08/21: She can continue tirzepatide. 4. Essential hypertension; on lisinopril -blood pressure elevated 150-161. On lisinopril 5. History of oral herpes simplex virus; on valacyclovir twice daily as needed - Maintain present treatment. 6. Depression with anxiety; on bupropion and fluoxetine - Resume home regimen. DVT prophylaxis - Enoxaparin 40 mg sq BID plus SCD's. Discharge medication reconciliation done. Discharge follow-up instructions completed. Discharge process discussed with the patient and all questions were answered to patient's satisfaction. Follow with PCP in 1 to 2 weeks Total time spent, exact 35 minutes on discharge meds reconciliation, examination, coordination of care with nurses and ancillary staff, review of imaging and blood test and discussion with the patient on follow-up instructions. Laboratory Results 08/19/25 18:18: WBC 17.8 H, RBC 4.89, Hgb 14.5, Hct 41.1, MCV 84.0, MCH 29.7, MCHC 35.3, RDW Std Deviation 41.6, RDW Coeff of Edison 13.5, Plt Count 287, MPV 9.7, Immature Gran % (Auto) 1.000 H, Neut % (Auto) 79.0 H, Lymph % (Auto) 9.9 L, Barnes % (Auto) 7.8, Eos % (Auto) 1.9, Baso % (Auto) 0.4, Absolute Neuts (auto) 14.1 H, Absolute Lymphs (auto) 1.77, Nucleated RBC % 0, Sodium 137, Potassium 3.5, Chloride 99, Carbon Dioxide 25.6, Anion Gap 13, BUN 11, Creatinine 0.79, Estim Creat Clear Calc 100.82, Est GFR (MDRD) Non-Af 89, BUN/Creatinine Ratio 14.1, Glucose 168 H, Hemoglobin A1c 7.0 H, Lactic Acid 2.1 H*, Calcium 9.0, TSH 0.443 08/19/25 22:33: POC Glucose 122 H 08/19/25 22:38: Lactic Acid 1.2, Vit D 1,25-Dihydroxy Pending 08/19/25 22:45: S.aureus Protein A PCR NEGATIVE, MRSA (PCR) Negative 08/20/25 05:05: Triglycerides 116, Cholesterol 182, LDL Cholesterol, Calc 109, VLDL Cholesterol 23, HDL Cholesterol 53, Cholesterol/HDL Ratio 3.46 08/20/25 06:35: POC Glucose 196 H 08/20/25 11:33: POC Glucose 228 H Medications at Discharge Home Medications fluoxetine 40 mg capsule (Prozac) 40 mg PO DAILY mood 01/06/22 Held on 08/21/25. Instructions: Hold while taking linezolid levonorgestrel 20.4 mcg/24 hr (up to 8 yrs) 52 mg intrauterine device (Liletta) 1 device intrauterine ONCE child 01/06/22 bupropion HCl 150 mg 24 hr tablet, extended release 150 mg PO QDAY mood 12/26/24 Held on 08/21/25. Instructions: Hold it if she can otherwise take 75 mg daily once daily while taking linezolid tirzepatide 2.5 mg/0.5 mL subcutaneous pen injector (Mounjaro) 2.5 mg subcut FR weight lose 12/26/24 valacyclovir 500 mg tablet (Valtrex) 500 mg PO BID PRN cold sores 03/31/25 hyoscyamine sulfate 0.125 mg tablet 0.125 mg PO Q12H PRN PRN dyspepsia 05/05/25 lisinopril 20 mg tablet 20 mg PO QDAY blood pressure 06/20/25 potassium chloride 20 mEq tablet,extended release 20 meq PO QDAY supplement 06/20/25 prednisone 20 mg tablet 20 mg PO DAILY steroid 07/11/25 linezolid 600 mg tablet 600 mg PO BID 1 week #14 tabs 08/21/25 Physical Exam Narrative Physical exam: General: Alert, Oriented x3, Cooperative HEENT: Atraumatic, PERRLA, EOMI, Normocephalic. Oral: No Gingival or Mucosal Lesions/ Ulcerations Neck: Supple, No JVD, Negative Carotid Bruits Chest wall/Lungs: Air entry diminished in bilateral lung bases. No crepitation/rhonchi Breast: No open drainage. As per nursing staff and the patient, redness and tenderness is also improved Cardiovascular: Regular rate and rhythm, Normal S1,S2, No M/G/R Abdomen: Bowel Sounds Present, Soft, Non Tender, Non-Distended : No dysuria. No renal angle tenderness. No suprapubic tenderness. Extremities: No edema, Capillary Refill Less than 3 Seconds Skin: No rashes, No breakdown Musculoskeletal: No Tenderness to Palpation of Joints or Extremities Neurological: Cranial nerves II-XII grossly intact, DTR 2+/4. No acute focal neurological deficit. Psych/Mental Status: Normal Affect, Appropriate. Weight / BMI Weight Weight: 245 lb 2.464 oz Body Mass Index (BMI) 42.0 ABG / Lab / Microbiology Data 08/21/25 07:48 08/21/25 07:48 Laboratory: Laboratory Results - last 24 hr 08/20/25 17:10: POC Glucose 223 H 08/20/25 22:26: POC Glucose 195 H 08/20/25 23:10: Vancomycin Trough 19.9 H 08/21/25 07:48: WBC 17.7 H, RBC 4.43, Hgb 13.1, Hct 38.1, MCV 86.0, MCH 29.6, MCHC 34.4, RDW Std Deviation 43.0, RDW Coeff of Edison 13.9, Plt Count 296, MPV 10.5, Immature Gran % (Auto) 1.300 H, Neut % (Auto) 84.6 H, Lymph % (Auto) 9.7 L, Barnes % (Auto) 4.1, Eos % (Auto) 0.0, Baso % (Auto) 0.3, Absolute Neuts (auto) 15.0 H, Absolute Lymphs (auto) 1.71, Nucleated RBC % 0, Sodium 142, Potassium 3.7, Chloride 109 H, Carbon Dioxide 20.7 L, Anion Gap 13, BUN 10, Creatinine 0.75, Estim Creat Clear Calc 105.86, Est GFR (MDRD) Non-Af 95, BUN/Creatinine Ratio 13.8, Glucose 237 H, Calcium 8.8 08/21/25 08:35: POC Glucose 230 H 08/21/25 12:13: POC Glucose 167 H Microbiology: Microbiology 08/19/25 22:45 Wound - Breast, Left Gram Stain - Final D/C Instructions Weight Bearing Status: Weight bearing as tolerated Call your doctor if you observe: Fever of 101 or Higher, Coldness, Increased Pain, Numbness or Tingling, Change in Color, Inability to urinate, Inability to have a bowel movement, Shortness of breath, Dizziness, Fainting spells, Swelling in the ankles, Chest pain, Prolonged hiccupping, Increased palpitations (irregular heartbeat) and Calf discomfort DC O2, CPAP, BIPAP Needs Home O2 Discharge instructions: No When: IN 2 WEEKS Meaningful Use Info Meaningful Use Meaningful Use Diagnoses (Choose all that apply): None applicable Discharge Plan Admission Admit Date/Time: 08/19/25 20:27 Attending Provider: Gamal Lee Primary Care Provider: Clemencia Guadalupe [facility] Consulting Providers: Deion Ramírez; Yannick Bourne; Yannick Gong Discharge Orders/Prescriptions Prescriptions: New linezolid 600 mg tablet 600 mg PO BID 7 Days Qty: 14 0RF Continued Liletta 20.1 mcg/24 hrs (6 yrs) 52 mg intrauterine device 1 device intrauterine ONCE Rx Instructions: as a single dose Mounjaro 2.5 mg/0.5 mL pen injector 2.5 mg subcut FR potassium chloride 20 mEq tablet extended release 20 meq PO QDAY lisinopril 20 mg tablet 20 mg PO QDAY prednisone 20 mg tablet 20 mg PO DAILY valacyclovir [Valtrex] 500 mg tablet 500 mg PO BID PRN (Reason: cold sores) hyoscyamine sulfate 0.125 mg tablet 0.125 mg PO Q12H PRN PRN (Reason: dyspepsia) Held fluoxetine [Prozac] 40 mg capsule 40 mg PO DAILY Hold Instructions: Hold while taking linezolid bupropion HCl 150 mg tablet extended release 24 hr 150 mg PO QDAY Hold Instructions: Hold it if she can otherwise take 75 mg daily once daily while taking linezolid Referrals / Follow Up: Yannick Gong MD [Med Staff - Active Staff, Infectious Disease] - Within 1 Month Yannick Bourne MD [Med Staff - Active Staff, Plastic Surgery] - Within 1 Week Clemencia Guadalupe DO [Primary Care Provider, [facility]] Disposition Disposition (needs filled in before D/C Order can be placed): Home, Self Care Charges/Coding Visit Charges Inpatient E&M: 86195 Disch Hosp >30min
--- NOTE | 2025-08-21 12:52 | PHA.DC.COU.R ---
Pharmacy [facility] has performed discharge medication counseling for this patient. The patient was counseled on the following discharge medications and changes in medications for homegoing review. - Linezolid 600 mg tablet The Reason for Use, instructions for use, and potential side effects were reviewed for all new medications. The patient's questions regarding all of their medications were answered. - We discussed that we are going to hold bupropion and fluoxetine while taking linezolid due to it being a drug interaction causing increased rates of serious side effects due to the mechanisms of action for all 3 medications. The patient and her understood the reason for holding her home meds and are agreeable to do so until she has finished the linezolid. The patient was able to verbally demonstrate an understanding of their discharge medications. Medications at Discharge Home Medications fluoxetine 40 mg capsule (Prozac) 40 mg PO DAILY mood 01/06/22 Held on 08/21/25. Instructions: Hold while taking linezolid levonorgestrel 20.4 mcg/24 hr (up to 8 yrs) 52 mg intrauterine device (Liletta) 1 device intrauterine ONCE child 01/06/22 bupropion HCl 150 mg 24 hr tablet, extended release 150 mg PO QDAY mood 12/26/24 Held on 08/21/25. Instructions: Hold it if she can otherwise take 75 mg daily once daily while taking linezolid tirzepatide 2.5 mg/0.5 mL subcutaneous pen injector (Mounjaro) 2.5 mg subcut FR weight lose 12/26/24 valacyclovir 500 mg tablet (Valtrex) 500 mg PO BID PRN cold sores 03/31/25 hyoscyamine sulfate 0.125 mg tablet 0.125 mg PO Q12H PRN PRN dyspepsia 05/05/25 lisinopril 20 mg tablet 20 mg PO QDAY blood pressure 06/20/25 potassium chloride 20 mEq tablet,extended release 20 meq PO QDAY supplement 06/20/25 prednisone 20 mg tablet 20 mg PO DAILY steroid 07/11/25 linezolid 600 mg tablet 600 mg PO BID 1 week #14 tabs 08/21/25
--- NOTE | 2025-08-21 13:20 | PN.SURG_ITS ---
Subjective Subjective Patient seen this morning with Dr. Bourne and at bedside. Some serous drainage from left breast biopsy site. She's continues to feel better. She'll be discharged on oral linezolid and counseled on stopping her antidepressants while taking the medication. Denies fever, chills. Tolerating oral intake. Ambulating well Objective Data Objective Data Vital Signs: Vital Signs Temp Pulse Resp BP Pulse Ox O2 Del Method 97.4 F L 86 16 172/105 H 98 Room Air 08/21/25 08:53 08/21/25 08:53 08/21/25 08:53 08/21/25 08:53 08/21/25 08:53 08/21/25 08:55 Oxygen Delivery Method Room Air Weight: 245 lb 2.464 oz Body Mass Index (BMI) 42.0 Intake & Output: Intake and Output for Last 24 Hours 08/19/25 08/20/25 08/21/25 23:59 23:59 23:59 Intake Total 1452.5 / 1452.5 2595.0 / 2595.0 2300 / 2300 Balance 1452.5 / 1452.5 2595.0 / 2595.0 2300 / 2300 Lab / Micro Data Attestation: I reviewed the patient's lab results. 08/21/25 07:48 08/21/25 07:48 Labs: Laboratory Results - last 24 hr 08/20/25 17:10: POC Glucose 223 H 08/20/25 22:26: POC Glucose 195 H 08/20/25 23:10: Vancomycin Trough 19.9 H 08/21/25 07:48: WBC 17.7 H, RBC 4.43, Hgb 13.1, Hct 38.1, MCV 86.0, MCH 29.6, MCHC 34.4, RDW Std Deviation 43.0, RDW Coeff of Edison 13.9, Plt Count 296, MPV 10.5, Immature Gran % (Auto) 1.300 H, Neut % (Auto) 84.6 H, Lymph % (Auto) 9.7 L , [place] % (Auto) 4.1, Eos % (Auto) 0.0, Baso % (Auto) 0.3, Absolute Neuts (auto) 15.0 H, Absolute Lymphs (auto) 1.71, Nucleated RBC % 0, Sodium 142, Potassium 3.7, Chloride 109 H, Carbon Dioxide 20.7 L, Anion Gap 13, BUN 10, Creatinine 0.75, Estim Creat Clear Calc 105.86, Est GFR (MDRD) Non-Af 95, BUN/Creatinine Ratio 13.8, Glucose 237 H, Calcium 8.8 08/21/25 08:35: POC Glucose 230 H 08/21/25 12:13: POC Glucose 167 H Micro: Microbiology 08/19/25 22:45 Wound - Breast, Left Gram Stain - Final Physical Exam Narrative Afebrile/VSS. Sitting up in bed in no acute distress. Bilateral breast very faint erythema with less involved areas. No induration, scant serous drainage noted on left biopsy site, possible new lesion medially on the left breast. Right breast biopsy site is clean, dry, no new lesions seen. No fluid collection. Tenderness to bilateral breast palpation No induration noted on bilateral nipples Assessment & Plan Assessment/Plan (1) Cellulitis: QUALIFIERS: Site of cellulitis: other site Qualified Code(s): L 03.818 - Cellulitis of other sites (2) Lactic acidosis: PLAN: Plan Will DC with 1 week course of oral Linezolid. Aware not stop her antidepressants Recommended to call Dr. Pickering's office to schedule follow up early next week with follow up with us on 08/28. Out of work note written. Continue oral steroids. Charges/Coding Visit Charges Inpatient E&M: 25467 Subs Hosp L2
--- NOTE | 2025-08-21 13:59 | CASEMGMT ---
RN CM NOTE: Discharge order is in. Linezolid has been e-scribed to [facility] pharmacy. Call received the pharmacy, PA is needed. Pt's Rx . Call placed to Help Desk @ . PA obtained. Case # [id number]. Call placed to [facility] Retail pharmacy. They ran linezolid through again. Co-pay is $19. Pt and made aware & able to afford. They deny having further discharge needs or concerns. Sarah Beth ELDRIDGEN RN CM
[2025-08-21 15:53] VITALS: BP 161/93; PULSE 88; RESP 16; TEMP 36.6; O2SAT 95
[2025-08-22 12:08] LABS: Vitamin D 1,25-Dihydroxy 42.0 pg/mL (24.8-81.5)
== END 2025-08-21 16:24 | disposition home or self-care (01) | DRG 600 ==
LOC: ED 20:04 → PCU 20:43
PROVIDERS: Surgery Plastic and Reconstructive Surgery; Admitting Provider Internal Medicine; Emergency Provider Emergency Medicine; PCP Family Medicine; Visit Provider Internal Medicine
DX: N61.0 Mastitis without abscess (principal); E87.20 Acidosis, unspecified; L88 Pyoderma gangrenosum; Z68.41 Body mass index [BMI] 40.0-44.9, adult; E11.9 Type 2 diabetes mellitus without complications; D72.825 Bandemia; E66.01 Morbid (severe) obesity due to excess calories; I10 Essential (primary) hypertension; F41.8 Other specified anxiety disorders; Z79.85 Long-term (current) use of injectable non-insulin antidiabetic drugs; Z79.899 Other long term (current) drug therapy; Z90.49 Acquired absence of other specified parts of digestive tract; E66.813 Obesity, class 3
CPT/HCPCS: 36415; 80048; 80061; 80202; 82652; 82962; 83036; 83605; 84443; 85025; 87040; 87070; 87077; 87186; 87205; 87640; 97802; 99285; A4216

== ENCOUNTER → 2025-09-17 | Outpatient (CLI) | payer BC, SELFPAY | END | disposition home or self-care (01) | LOC: LABSPEC 10:16 | PROVIDERS: PCP Family Medicine; Referring Provider Dermatology; Visit Provider Dermatology | DX: L88 Pyoderma gangrenosum (principal) | CPT/HCPCS: 87070; 87077; 87186; 87205 ==